=== PATIENT | male | born 1940 | race Caucasian/White ===

== ENCOUNTER 2016-08-09 10:17 | Inpatient (IN) | payer OTHER ==
--- NOTE | 2016-08-09 10:54 | PDOC ---
History of Present Illness - General History Source: Patient Exam Limitations: No Limitations - History of Present Illness Initial Comments: 08/09/16 11:04 The patient is a 75 year old male, with significant past medical history of HTN , HLD, CHF, myocardial infarction(1992), CVA (with right sided residual weakness ) IDDM, gastritis, epilepsy, anemia, who presents today complaining of left shoulder pain. The patient was in the emergency room yesterday, 08/08/16, for left shoulder pain s/p fall 5 days ago and was discharged with Tramadol. He returns to the emergency room today because the left shoulder pain is now radiating up the neck, to his left chest, and down to the fingers with associated tingling. He became SOB last night and took Ventolin. The patient had a stent placed on 07/19/16 and wanted to be sure everything was fine. Denies fever, nausea, sweats. Denies abdominal pain, urinary difficulty. Denies lightheadedness, dizziness, changes in vision. Allergies: None reported Surgical Hx: Cholecystectomy, stent placement (07/19/16). Orthopedic surgery on left hand. Social Hx: No tobacco use. No alcohol use. PCP- Dr. Srini Nichols <Gretchen Carver - Last Filed: 08/09/16 11:36> <Roxanne Grubbs - Last Filed: 08/10/16 10:55> - General Chief Complaint: Chronic pain Stated Complaint: SHOULDER AND CHEST PAIN Time Seen by Provider: 08/09/16 10:33 Past History <Gretchen Carver - Last Filed: 08/09/16 11:36> - Past Medical History Anemia: Yes Asthma: No Cancer: No Cardiac Disorders: Yes (mi 1992) 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)) COPD: No CHF: Yes Dementia: Yes Diabetes: Yes (IDDM) GI Disorders: Yes (Gastritis) Disorders: No HTN: Yes Hypercholesterolemia: Yes Liver Disease: No Suicide Attempt (Hx): No Seizures: Yes (epilepsy) Thyroid Disease: No - Surgical History Abdominal Surgery: Yes Appendectomy: No Cardiac Surgery: No Cholecystectomy: Yes Lung Surgery: No Neurologic Surgery: No Orthopedic Surgery: Yes (LEFT HAND) - Immunization History Immunization Up to Date: No - Psycho/Social/Smoking Cessation Hx Anxiety: No Suicidal Ideation: No Smoking History: Never smoked Have you smoked in the past 12 months: No Number of Cigarettes Smoked Daily: 0 Information on smoking cessation initiated: No Hx Alcohol Use: No Drug/Substance Use Hx: No Substance Use Type: None Hx Substance Use Treatment: No <RomieRoxanne - Last Filed: 08/10/16 10:55> - Past Medical History Allergies/Adverse Reactions: Allergies Allergy/AdvReac Type Severity Reaction Status Date / Time No Known Allergies Allergy Verified 08/09/16 10:33 Home Medications: Ambulatory Orders Atorvastatin Ca [Lipitor] 20 mg PO HS 05/20/16 Finasteride 5 mg PO DAILY 05/20/16 Nifedipine [Nifedipine Xl] 60 mg PO DAILY 05/20/16 Sitagliptin Phosphate [Januvia] 100 mg PO DAILY 05/20/16 Tamsulosin HCl 0.4 mg PO DAILY 05/20/16 Acetaminophen [Tylenol .Regular Strength -] 650 mg PO Q8H PRN #0 tablet Albuterol Sulfate Inhaler - [Ventolin Hfa Inhaler -] 1 - 2 inh PO Q4H #1 inhaler 05/27/16 Donepezil HCl [Aricept -] 5 mg PO HS #30 tablet 05/27/16 Levetiracetam [Keppra -] 1,000 mg PO BID tablet 05/27/16 Ergocalciferol (Vitamin D2) [Vitamin D2] 1.25 unit PO DAILY 06/27/16 Furosemide [Lasix -] 20 mg PO DAILY 06/27/16 Omeprazole/Sodium Bicarbonate [Omeprazole-Bicarb 40-1,100 Cap] 1 each PO DAILY 06/27/16 Alprazolam [Xanax] 0.5 mg PO DAILY 08/08/16 Carvedilol [Coreg] 12.5 mg PO BID 08/08/16 Cyanocobalamin (Vitamin B-12) [Nascobal] 1 each NS WEEKLY 08/08/16 Docusate Sodium [Colace -] 100 mg PO DAILY 08/08/16 Gabapentin [Neurontin -] 300 mg PO BID 08/08/16 Insulin Degludec [Tresiba Flextouch U-200] 42 unit SQ DAILY 08/08/16 Isosorbide Mononitrate [Isosorbide Mononitrate ER] 30 mg PO DAILY 01/09/17 Lisinopril [Zestril] 2.5 mg PO DAILY 08/08/16 Mirtazapine [Remeron -] 15 mg PO HS 08/08/16 Tramadol HCl 50 mg PO TID #21 tablet MDD 3 08/08/16 Warfarin Sodium [Coumadin] 5 mg PO HS 08/08/16 Review of Systems - Review of Systems Able to Perform ROS?: Yes Comments:: 08/09/16 11:04 GENERAL/CONSTITUTIONAL: No: fever, chills, weakness, loss of appetite. HEAD, EYES, EARS, NOSE AND THROAT: No: change in vision, ear pain, discharge, sore throat, throat swelling. CARDIOVASCULAR: No: chest pain, lightheadedness, palpitations, syncope RESPIRATORY: No: cough, shortness of breath, wheezing, hemoptysis, stridor. GASTROINTESTINAL: No: nausea, vomiting, abdominal cramping, diarrhea, rectal bleeding, constipation. GENITOURINARY: No: dysuria, hematuria, frequency, urgency, flank pain. MUSCULOSKELETAL: Yes: left shoulder pain radiating to neck and fingers. No: back pain, joint pain, muscle swelling or pain SKIN: No: lesions, pallor, rash or easy bruising. NEUROLOGIC: No: headache, vertigo, paresthesias, weakness ENDOCRINE: No: unexplained weight gain or loss HEMATOLOGIC/LYMPHATIC: No: anemia, easy bleeding, swelling nodesGENERAL/ CONSTITUTIONAL: No: fever, chills, weakness, loss of appetite. <Gretchen Carver - Last Filed: 08/09/16 11:36> *Physical Exam - Vital Signs Last Vital Signs Temp Pulse Resp BP Pulse Ox 97.5 F L 64 18 133/78 97 08/09/16 10:27 08/09/16 10:27 08/09/16 10:27 08/09/16 10:27 08/09/16 10:27 - Physical Exam Comments: 08/09/16 11:05 GENERAL: The patient is in no acute distress. HEAD: Normal with no signs of trauma. EYES: PERRLA, EOMI, sclera anicteric, conjunctiva clear. ENT: Ears normal, nares patent, oropharynx clear without exudates. Moist mucous membranes. NECK: Normal range of motion, supple without lymphadenopathy, JVD, or masses. LUNGS: Breath sounds equal, clear to auscultation bilaterally. No wheezes, and no crackles. HEART:Regular rate and rhythm, normal S1 and S2 without murmur, rub or gallop. ABDOMEN: Soft, nontender, normoactive bowel sounds. No guarding, no rebound. EXTREMITIES: +Tenderness to palpation of the superior shoulder. Limited ROM of the left arm secondary to pain. No edema. No clubbing or cyanosis. No erythema. NEUROLOGICAL: Cranial nerves II through XII grossly intact. Normal speech. No focal neurological deficits. MUSCULOSKELETAL: Back nontender to palpation, no CVA tenderness SKIN: Warm, Dry, normal turgor, no rashes or lesions noted. <Gretchen Carver - Last Filed: 08/09/16 11:36> - Vital Signs Last Vital Signs Temp Pulse Resp BP Pulse Ox 97.5 F L 64 18 133/78 97 08/09/16 10:27 08/09/16 10:27 08/09/16 10:27 08/09/16 10:27 08/09/16 10:27 <Roxanne Grubbs - Last Filed: 08/10/16 10:55> Heart Score/ECG Review - History History: Slightly suspicious - Electrocardiogram EKG: Non specific repolarization disturbance - Age Age: >/= 65 - Risk Factors Risk Factors Heart Score: Yes Hx Hypercholesterolemia, Yes Hx Hypertension, Yes Hx Diabetes, Yes Positive family hx of cardiac disease Based on the list above the patient has:: >/=3 risk factors or Hx atherosclerotic disease - Troponin Troponin: </= normal limit - Score Heart Score - Total: 5 #1 ECG reviewed & interpreted by me at: 11:26 08/09/16 11:26 Paced at 60 bpm <Roxanne Grubbs - Last Filed: 08/10/16 10:55> ED Treatment Course - LABORATORY CBC & Chemistry Diagram: 08/09/16 10:51 08/09/16 10:51 - RADIOLOGY Radiograph Interpretation: 08/09/16 11:36 EXAM#: TYPE/EXAM: RESULT: [id number] RAD/CHEST X-RAY PORTABLE* Chest pain. Chest semierect portable x-ray. Comparison study June 27, 2016. The heart is borderline enlarged. No evidence of widening of the superior mediastinum. Left pacemaker with single lead. No evidence of pneumonia, CHF, or large pleural effusion. No evidence of pulmonary infiltrates. Impression. No evidence of pulmonary infiltrates, CHF, or pneumothorax. Reported By: Willie King MD 08/09/16 1134 <Gretchen Carver - Last Filed: 08/09/16 11:36> - LABORATORY CBC & Chemistry Diagram: 08/10/16 05:35 08/10/16 05:35 <Roxanne Grubbs - Last Filed: 08/10/16 10:55> Medical Decision Making - Medical Decision Making 08/09/16 11:07 Dr. Higgins visited the patient's bedside upon arrival to the emergency room. <Gretchen Carver - Last Filed: 08/09/16 11:36> - Medical Decision Making A portion of this note was documented by scribe services under my direction. I have reviewed the details of the note, within reason, and agree with the documentation with the following case summary and management plan written by me. Nursing documentation reviewed and incorporated into medical decision making 75 yo M presenting to the ER with a complaint of left chest pain radiating to the neck Apparently, pt fell 4 days ago Complained of left shoulder pain Was seen in the ER yesterday Pt state pain has NOT improved despite Tramadol Pain is intermittent Worse with movement of the shoulder Associated with shortness of breath 08/09/16 12:48 Laboratory Tests 08/09/16 08/09/16 10:51 10:51 WBC 8.4 Hgb 9.6 L Hct 30.0 L Plt Count 174 Neutrophils % 79.2 Lymphocytes % 9.9 Sodium 143 Potassium 4.2 Chloride 105 Carbon Dioxide 31 BUN 21 H Creatinine 1.5 H Random Glucose 182 H Creatine Kinase 50 Troponin I 0.03 D PT seen in the ER by Dr Higgins Will admit to tele given cardiac risk factors, atypical chest pain and need for staged Cath and stent Case reviewed with Kristy Clinical impression: Chest pain <Roxanne Grubbs - Last Filed: 08/10/16 10:55> *DC/Admit/Observation/Transfer - Attestations Scribe Attestion: 08/09/16 11:05 Documentation prepared by BETH White, acting as medical records clerk for Roxanne Grubbs MD. <Gretchen Carver - Last Filed: 08/09/16 11:36> - Discharge Dispostion Admit: Yes <Roxanne Grubbs - Last Filed: 08/10/16 10:55> Diagnosis at time of Disposition: Atypical chest pain - Discharge Dispostion Condition at time of disposition: Stable
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
[2016-08-09 11:19] LABS: BASOPHIL 0.3 % (0-2.0); EOSINOPHIL 2.1 % (0-4.5); MCH 26.4 pg (25.7-33.7); MCHC 31.9 g/dl (32.0-35.9); MEAN CELL VOLUME 82.8 fl (80-96); MEAN PLT VOLUME 8.2 fl (7.5-11.1); NEUTROPHILS 79.2 % (42.8-82.8); PLATELET COUNT 174 K/MM3 (134-434); RDW 14.9 % (11.9-15.9); WHITE BLOOD COUNT 8.4 K/mm3 (4.0-10.0)
[2016-08-09 11:34] LABS: URINE APPEARANCE CLEAR; URINE BILIRUBIN NEGATIVE (NEGATIVE); URINE COLOR LT. YELLOW; URINE GLUCOSE (UA) NEGATIVE (NEGATIVE); URINE KETONE NEGATIVE (NEGATIVE); URINE LEUK ESTERASE NEGATIVE (NEGATIVE); URINE NITRITE NEGATIVE (NEGATIVE); URINE UROBILINOGEN 0.2 E.U/dl E.U./dl (0.2-1.0)
[2016-08-09] MEDS ORDERED: morphine CARPU-JECT 4 MG/1 ML DISP.SYRIN IVPUSH ONE (11:35)
[2016-08-09 11:37] LABS: URINE BLOOD 2+ (NEGATIVE); URINE PROTEIN 2+ (NEGATIVE)
[2016-08-09] MEDS ORDERED: morphine CARPU-JECT 2 MG/1 ML DISP.SYRIN ONE (11:39)
[2016-08-09 11:43] LABS: BILIRUBIN,TOTAL 0.4 mg/dL (0.2-1.0); CALCIUM 7.7 mg/dL (8.5-10.1); CREATININE 1.5 mg/dL (0.7-1.3); TOT PROT 6.7 g/dl (6.4-8.2)
[2016-08-09 11:46] LABS: TROPONIN I 0.03 ng/ml (0.00-0.05)
[2016-08-09 11:55] LABS: URINE BACTERIA RARE /hpf (NONE SEEN); URINE HYALINE CAST 1 /lpf; URINE MUCUS RARE; URINE RBC 14 /hpf (0-3); URINE WBC <1 /hpf (3-5)
[2016-08-09] MEDS ORDERED: ALBUTEROL SO4 2.5/IPRATROPIUM 0.5 INH SOL 3 ML VIAL.NEB. NEB PRN (16:28)
[2016-08-09] MEDS ORDERED: ALPRAZolam 0.25 MG TABLET PO PRN (16:28)
[2016-08-09] MEDS ORDERED: ACETAMINOPHEN 325 MG TABLET (FP) PO PRN (16:28)
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
[2016-08-09] MEDS: INSULIN SLIDING SCALE (NOVOLOG) 1 VIAL SQ SCH ×2 (17:46→21:47)
[2016-08-09] MEDS ORDERED: WARFARIN NA 5 MG TABLET (UD) PO SCH (18:00)
[2016-08-09 18:18] VITALS: BMI 24.5
--- NOTE | 2016-08-09 18:18 | EKG ---
Test Reason : Blood Pressure : / mmHG Vent. Rate : 060 BPM Atrial Rate : 071 BPM P-R Int : 000 ms QRS Dur : 174 ms QT Int : 516 ms P-R-T Axes : 000 -68 120 degrees QTc Int : 516 ms Ventricular-paced rhythm ABNORMAL ECG WHEN COMPARED WITH ECG OF 08-AUG-2016 11:28, NO SIGNIFICANT CHANGE WAS FOUND Confirmed by MURPHY ZELAYA MD ([id number]) on 08/09/2016 6:18:31 PM Referred By: Confirmed By:MURPHY ZELAYA MD
[2016-08-09] MEDS: levETIRAcetam 500 MG TABLET (FP) PO SCH (21:23)
[2016-08-09] MEDS: GABAPENTIN 300 MG CAPSULE (FP) PO SCH (21:23)
[2016-08-09] MEDS: MIRTAZAPINE 30 MG TABLET (FP) PO SCH (21:23)
[2016-08-09] MEDS: CARVEDILOL 12.5 MG TABLET (FP) PO SCH (21:23)
[2016-08-09] MEDS: traMADol HCL 50 MG TABLET PO PRN (21:24)
[2016-08-10] MEDS: traMADol HCL 50 MG TABLET PO PRN ×2 (06:30→21:36)
[2016-08-10] MEDS: sitaGLIPtin PHOSPHATE 100 MG TABLET (FP) PO SCH (06:30)
[2016-08-10] MEDS: GABAPENTIN 300 MG CAPSULE (FP) PO SCH ×3 (06:31→21:33)
[2016-08-10] MEDS: INSULIN SLIDING SCALE (NOVOLOG) 1 VIAL SQ SCH ×4 (06:32→21:37)
[2016-08-10 06:47] LABS: MCH 26.6 pg (25.7-33.7); MCHC 32.5 g/dl (32.0-35.9); MEAN CELL VOLUME 81.7 fl (80-96); MEAN PLT VOLUME 8.2 fl (7.5-11.1); PLATELET COUNT 185 K/MM3 (134-434); RDW 15.2 % (11.9-15.9); WHITE BLOOD COUNT 7.5 K/mm3 (4.0-10.0)
[2016-08-10 07:14] LABS: ALBUMIN 2.6 g/dl (3.4-5.0); CALCIUM 7.4 mg/dL (8.5-10.1)
[2016-08-10 07:17] LABS: BILIRUBIN,TOTAL 0.3 mg/dL (0.2-1.0); CREATININE 1.6 mg/dL (0.7-1.3); TOT PROT 6.1 g/dl (6.4-8.2)
[2016-08-10 07:28] LABS: CHOLESTEROL 98 mg/dL (50-200); LDL CHOLESTEROL (ONLY SJRH) 53 mg/dL (5-100)
[2016-08-10 07:33] LABS: INR 2.71 (0.82-1.09); PROTHROMBIN TIME (PATIENT) 30.4 SEC (9.98-11.88)
[2016-08-10] MEDS: TAMSULOSIN HCL 0.4 MG CAP.ER.24H (FP) PO SCH (08:55)
--- NOTE | 2016-08-10 09:08 | CONSULT ---
Consult - text type - Consultation Consultation Note: FULL CONSULT DICTATED IMP: INTERNAL DERANGEMENT LEFT SHOULDER PROBABLE ROTATOR CUFF TEAR AND AC JOINT SPRAIN PLAN: CAN BE DCed FROM AN ORTHO STANDPOINT IN A SLING WITH ANALGESICS. WE CAN ARRANGE OUTPATIENT MRI
--- NOTE | 2016-08-10 09:34 | CONS ---
DATE OF CONSULTATION: 08/10/2016 ORTHOPEDIC CONSULTATION HISTORY OF PRESENT ILLNESS: Patient is a 75-year-old male status post fall last week injuring his left shoulder. He initially came to the emergency room last week where they did x-rays which were negative and sent him home. Patient returns to the hospital complaining of pain to the shoulder and neck and surrounding region, and was thus admitted to the hospital for cardiac evaluation and other consultations. Orthopedic consultation was then obtained. PHYSICAL EXAMINATION: Patient has point tenderness over his AC joint. He also has positive drop-on sign with positive impingement sign. No swelling, ecchymosis, erythema, and full range of motion elbow, wrists, and fingers. He has a supple C-spine with cranial nerve examination 2-12 grossly intact. No strap muscle tenderness. IMAGING: X-rays reviewed are negative of the left shoulder. IMPRESSION: Internal derangement of the left shoulder, probable rotator cuff tear, questionable acromioclavicular sprain, as well. PLAN: Sling, nonsteroidals, analgesics. Patient can be discharged and we can arrange for an outpatient MRI and followup in my office. ROSSANA URIBE M.D. [id number]
[2016-08-10] MEDS: DONEPEZIL HCL 5 MG TABLET (FP) PO SCH (09:55)
[2016-08-10] MEDS: CARVEDILOL 12.5 MG TABLET (FP) PO SCH ×2 (09:55→21:33)
[2016-08-10] MEDS: DOCUSATE SODIUM 100 MG CAPSULE (FP) PO SCH (09:55)
[2016-08-10] MEDS: LISINOPRIL 5 MG TABLET (FP) PO SCH (09:56)
[2016-08-10] MEDS: ISOSORBIDE MONONITRATE 30 MG TAB.SR.24H (FP) PO SCH (09:56)
[2016-08-10] MEDS: levETIRAcetam 500 MG TABLET (FP) PO SCH ×2 (09:56→21:33)
[2016-08-10] MEDS: NIFEdipine E.R. 30 MG TABLET (FP) PO SCH (09:57)
[2016-08-10] MEDS: PANTOPRAZOLE 40 MG TABLET (FP) PO SCH (09:58)
[2016-08-10] MEDS: FINASTERIDE 5 MG TABLET (FP) PO SCH (09:58)
[2016-08-10] MEDS ORDERED: FUROSEMIDE 40 MG TABLET (FP) PO SCH (10:00)
--- NOTE | 2016-08-10 10:20 | PN ---
Progress Note, Physician Chief Complaint: HAD D/W PATIENT & FAMILY MEMBER - Current Medication List Current Medications: Active Medications Acetaminophen (Tylenol -) 650 mg PO Q6H PRN PRN Reason: FEVER OR PAIN Albuterol/Ipratropium (Duoneb -) 1 amp NEB Q6H PRN PRN Reason: SHORTNESS OF BREATH Alprazolam (Xanax -) 0.25 mg PO Q8H PRN PRN Reason: ANXIETY Last Admin: 08/09/16 21:23 Dose: 0.25 mg Atorvastatin Calcium (Lipitor -) 20 mg PO [facility] Carvedilol (Coreg -) 12.5 mg PO BID [facility] Last Admin: 08/10/16 09:55 Dose: 12.5 mg Docusate Sodium (Colace -) 100 mg PO DAILY [facility] Last Admin: 08/10/16 09:55 Dose: 100 mg Donepezil HCl (Aricept -) 5 mg PO DAILY [facility] Last Admin: 08/10/16 09:55 Dose: 5 mg Finasteride (Proscar -) 5 mg PO DAILY [facility] Last Admin: 08/10/16 09:58 Dose: 5 mg Gabapentin (Neurontin -) 300 mg PO TID [facility] Last Admin: 08/10/16 06:31 Dose: 300 mg Insulin Aspart (Novolog Vial Sliding Scale -) 1 vial SQ ACHS [facility] PRN Reason: Protocol Last Admin: 08/10/16 06:32 Dose: Not Given Isosorbide Mononitrate (Imdur -) 30 mg PO DAILY [facility] Last Admin: 08/10/16 09:56 Dose: 30 mg Levetiracetam (Keppra -) 1,000 mg PO BID [facility] Last Admin: 08/10/16 09:56 Dose: 1,000 mg Lisinopril (Prinivil) 2.5 mg PO DAILY [facility] Last Admin: 08/10/16 09:56 Dose: 2.5 mg Mirtazapine (Remeron -) 30 mg PO HS [facility] Last Admin: 08/09/16 21:23 Dose: 30 mg Nifedipine (Procardia Xl -) 30 mg PO DAILY [facility] Last Admin: 08/10/16 09:57 Dose: 30 mg Pantoprazole Sodium (Protonix -) 40 mg PO DAILY [facility] Last Admin: 08/10/16 09:58 Dose: 40 mg Sitagliptin Phosphate (Januvia -) 100 mg PO DAILY@0700 [facility] Last Admin: 08/10/16 06:30 Dose: 100 mg Tamsulosin HCl (Flomax -) 0.4 mg PO DAILY@0830 [facility] Last Admin: 08/10/16 08:55 Dose: 0.4 mg Tramadol HCl (Ultram -) 50 mg PO Q8H PRN PRN Reason: PAIN Last Admin: 08/10/16 06:30 Dose: 50 mg - Objective Vital Signs: Vital Signs Temperature 98.3 F 08/10/16 06:00 Pulse Rate 69 08/10/16 06:00 Respiratory Rate 18 08/10/16 06:00 Blood Pressure 132/63 08/10/16 06:00 O2 Sat by Pulse Oximetry (%) 94 L 08/09/16 21:00 Constitutional: Yes: Calm Cardiovascular: Yes: S1, S2 Respiratory: Yes: CTA Bilaterally Gastrointestinal: Yes: Normal Bowel Sounds, Soft Edema: No Labs: CBC, BMP 08/10/16 05:35 08/10/16 05:35 INR, PTT INR 2.71 (0.82-1.09) H 08/10/16 05:35 Problem List - Problems (1) Acute on chronic renal insufficiency Code(s): N28.9 - DISORDER OF KIDNEY AND URETER, UNSPECIFIED N18.9 - CHRONIC KIDNEY DISEASE, UNSPECIFIED (2) Atrial flutter Code(s): I48.92 - UNSPECIFIED ATRIAL FLUTTER Qualifiers: Atrial flutter type: unspecified Qualified Code(s): I48.92 - Unspecified atrial flutter (3) Atypical chest pain Code(s): R07.89 - OTHER CHEST PAIN (4) CHF (congestive heart failure) Code(s): I50.9 - HEART FAILURE, UNSPECIFIED Qualifiers: Congestive heart failure chronicity: acute on chronic (5) CKD (chronic kidney disease) Code(s): N18.9 - CHRONIC KIDNEY DISEASE, UNSPECIFIED (6) Diabetes mellitus Code(s): E11.9 - TYPE 2 DIABETES MELLITUS WITHOUT COMPLICATIONS Qualifiers: Diabetes mellitus type: type 1 Diabetes mellitus complication status: with hyperglycemia Qualified Code(s): E10.65 - Type 1 diabetes mellitus with hyperglycemia (7) Epilepsy Code(s): G40.909 - EPILEPSY, UNSP, NOT INTRACTABLE, WITHOUT STATUS EPILEPTICUS (8) HTN (hypertension) Code(s): I10 - ESSENTIAL (PRIMARY) HYPERTENSION Qualifiers: Hypertension type: essential hypertension Qualified Code(s): I10 - Essential (primary) hypertension (9) Shoulder pain, left Code(s): M25.512 - PAIN IN LEFT SHOULDER Qualifiers: Chronicity: acute Qualified Code(s): M25.512 - Pain in left shoulder (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 Code(s): E11.610 - TYPE 2 DIABETES MELLITUS W DIABETIC NEUROPATHIC ARTHROPATHY (11) Altered mental status Code(s): R41.82 - ALTERED MENTAL STATUS, UNSPECIFIED Assessment/Plan (1) Atrial flutter Code(s): I48.92 - UNSPECIFIED ATRIAL FLUTTER Qualifiers: Atrial flutter type: unspecified Qualified Code(s): I48.92 - Unspecified atrial flutter INR THERAPEUTIC ON WARFARIN -> WILL CONTINUE IF CTB NEG (2) Atypical chest pain Code(s): R07.89 - OTHER CHEST PAIN CARDIOLOGY EVAL APPRECIATED TELEMETRY EVAL PLANNED ANGIO (3) Chronic systolic CHF (congestive heart failure) Code(s): I50.22 - CHRONIC SYSTOLIC (CONGESTIVE) HEART FAILURE (4) Dementia Code(s): F03.90 - UNSPECIFIED DEMENTIA WITHOUT BEHAVIORAL DISTURBANCE Qualifiers: Dementia behavioral disturbance: without behavioral disturbance (5) Epilepsy Code(s): G40.909 - EPILEPSY, UNSP, NOT INTRACTABLE, WITHOUT STATUS EPILEPTICUS ON AED (6) Near syncope Code(s): R55 - SYNCOPE AND COLLAPSE SEE #1 (7) Pacemaker Code(s): Z95.0 - PRESENCE OF CARDIAC PACEMAKER (8) Stented coronary artery Code(s): Z95.5 - PRESENCE OF CORONARY ANGIOPLASTY IMPLANT AND GRAFT (9) ACS (acute coronary syndrome) Code(s): I24.9 - ACUTE ISCHEMIC HEART DISEASE, UNSPECIFIED SEE #1 TROP NEG x 1 -> F/U #2 (10) Acute on chronic renal failure Code(s): N17.9 - ACUTE KIDNEY FAILURE, UNSPECIFIED N18.9 - CHRONIC KIDNEY DISEASE, UNSPECIFIED (11) Acute on chronic renal insufficiency Code(s): N28.9 - DISORDER OF KIDNEY AND URETER, UNSPECIFIED N18.9 - CHRONIC KIDNEY DISEASE, UNSPECIFIED Cr 1.6 RENAL CONSULTED (12) Acute respiratory failure Code(s): J96.00 - ACUTE RESPIRATORY FAILURE, UNSP W HYPOXIA OR HYPERCAPNIA (13) Anemia Code(s): D64.9 - ANEMIA, UNSPECIFIED Qualifiers: Anemia type: unspecified type Qualified Code(s): D64.9 - Anemia, unspecified (14) CVA (cerebral infarction) Code(s): I63.9 - CEREBRAL INFARCTION, UNSPECIFIED Qualifiers: Cerebral infarction mechanism: unspecified mechanism Qualified Code( s): I63.9 - Cerebral infarction, unspecified (15) Diabetes mellitus Code(s): E11.9 - TYPE 2 DIABETES MELLITUS WITHOUT COMPLICATIONS Qualifiers: Diabetes mellitus type: type 1 Diabetes mellitus complication status: with hyperglycemia Qualified Code(s): E10.65 - Type 1 diabetes mellitus with hyperglycemia (16) HTN (hypertension) Code(s): I10 - ESSENTIAL (PRIMARY) HYPERTENSION Qualifiers: Hypertension type: essential hypertension Qualified Code(s): I10 - Essential (primary) hypertension (17) Seizure disorder Code(s): G40.909 - EPILEPSY, UNSP, NOT INTRACTABLE, WITHOUT STATUS EPILEPTICUS (18) Shoulder pain, left Code(s): M25.512 - PAIN IN LEFT SHOULDER Qualifiers: Chronicity: acute Qualified Code(s): M25.512 - Pain in left shoulder APPRECIATE ORTHO CONSULT F/U CT (19) Slurred speech Code(s): R47.81 - SLURRED SPEECH F/U NEURO CONSULT NEURO CHECKS AND NEUROLOGY EVAL FALL PRECAUTIONS SEIZURE PRECAUTIONS - CTB STAT (20) Type 2 diabetes mellitus with diabetic neuropathic arthropathy Code(s): E11.610 - TYPE 2 DIABETES MELLITUS W DIABETIC NEUROPATHIC ARTHROPATHY 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
--- NOTE | 2016-08-10 10:27 | EKG ---
Test Reason : Blood Pressure : / mmHG Vent. Rate : 085 BPM Atrial Rate : 085 BPM P-R Int : 160 ms QRS Dur : 136 ms QT Int : 424 ms P-R-T Axes : 063 -53 -33 degrees QTc Int : 504 ms SINUS RHYTHM WITH OCCASIONAL PREMATURE VENTRICULAR COMPLEXES LEFT AXIS DEVIATION RIGHT BUNDLE BRANCH BLOCK INFERIOR INFARCT , AGE UNDETERMINED ANTEROLATERAL INFARCT , AGE UNDETERMINED ABNORMAL ECG WHEN COMPARED WITH ECG OF 09-AUG-2016 11:05, SINUS RHYTHM HAS REPLACED ELECTRONIC VENTRICULAR PACEMAKER Confirmed by MADISYN ENGLAND MD ([id number]) on 08/10/2016 10:27:34 AM Referred By: Kenia ROSA Confirmed By:MADISYN ENGLAND MD
--- NOTE | 2016-08-10 10:35 | PN ---
Progress Note, Physician History of Present Illness: 75 yr old man ([place]. [place]) with PMHx CVA, CAD (s/p [place] 07/07/2016-->T[facility] LAD; further taged TIBURCIO planned within the next few weeks), significant systolic LV dysfunction (<30% LBEF on recent ECHO), AF; HTN DM, now admitted with left shoulder pain after a slip and fall on that arm (this occurred yesterday; an Xray in [facility] ER showed no fracture). When he complained to the family that moving his arm started to cause chest pain that felt the same as before the [place] 05/2016, he was brought back to the ER. - Current Medication List Current Medications: Active Medications Acetaminophen (Tylenol -) 650 mg PO Q6H PRN PRN Reason: FEVER OR PAIN Albuterol/Ipratropium (Duoneb -) 1 amp NEB Q6H PRN PRN Reason: SHORTNESS OF BREATH Alprazolam (Xanax -) 0.25 mg PO Q8H PRN PRN Reason: ANXIETY Last Admin: 08/09/16 21:23 Dose: 0.25 mg Atorvastatin Calcium (Lipitor -) 20 mg PO HS [facility] Carvedilol (Coreg -) 12.5 mg PO BID [facility] Last Admin: 08/10/16 09:55 Dose: 12.5 mg Docusate Sodium (Colace -) 100 mg PO DAILY [facility] Last Admin: 08/10/16 09:55 Dose: 100 mg Donepezil HCl (Aricept -) 5 mg PO DAILY [facility] Last Admin: 08/10/16 09:55 Dose: 5 mg Finasteride (Proscar -) 5 mg PO DAILY [facility] Last Admin: 08/10/16 09:58 Dose: 5 mg Gabapentin (Neurontin -) 300 mg PO TID [facility] Last Admin: 08/10/16 06:31 Dose: 300 mg Insulin Aspart (Novolog Vial Sliding Scale -) 1 vial SQ ACHS [facility] PRN Reason: Protocol Last Admin: 08/10/16 06:32 Dose: Not Given Isosorbide Mononitrate (Imdur -) 30 mg PO DAILY [facility] Last Admin: 08/10/16 09:56 Dose: 30 mg Levetiracetam (Keppra -) 1,000 mg PO BID [facility] Last Admin: 08/10/16 09:56 Dose: 1,000 mg Lisinopril (Prinivil) 2.5 mg PO DAILY [facility] Last Admin: 08/10/16 09:56 Dose: 2.5 mg Mirtazapine (Remeron -) 30 mg PO HS [facility] Last Admin: 08/09/16 21:23 Dose: 30 mg Nifedipine (Procardia Xl -) 30 mg PO DAILY [facility] Last Admin: 08/10/16 09:57 Dose: 30 mg Pantoprazole Sodium (Protonix -) 40 mg PO DAILY [facility] Last Admin: 08/10/16 09:58 Dose: 40 mg Sitagliptin Phosphate (Januvia -) 100 mg PO DAILY@0700 [facility] Last Admin: 08/10/16 06:30 Dose: 100 mg Tamsulosin HCl (Flomax -) 0.4 mg PO DAILY@0830 [facility] Last Admin: 08/10/16 08:55 Dose: 0.4 mg Tramadol HCl (Ultram -) 50 mg PO Q8H PRN PRN Reason: PAIN Last Admin: 08/10/16 06:30 Dose: 50 mg - Objective Vital Signs: Vital Signs Temperature 98.3 F 08/10/16 06:00 Pulse Rate 69 08/10/16 06:00 Respiratory Rate 18 08/10/16 06:00 Blood Pressure 132/63 08/10/16 06:00 O2 Sat by Pulse Oximetry (%) 94 L 08/09/16 21:00 Eyes: Yes: WNL, Conjunctiva Clear, EOM Intact HENT: Yes: WNL, Atraumatic, Normocephalic Neck: Yes: WNL, Supple, Trachea Midline Cardiovascular: Yes: WNL, Regular Rate and Rhythm Respiratory: Yes: WNL, Regular, CTA Bilaterally Gastrointestinal: Yes: WNL, Normal Bowel Sounds Genitourinary: Yes: WNL Musculoskeletal: Yes: WNL Extremities: Yes: WNL Edema: No Integumentary: Yes: WNL Neurological: Yes: WNL, Alert, Oriented ...Motor Strength: WNL Psychiatric: Yes: WNL Labs: CBC, BMP 08/10/16 05:35 08/10/16 05:35 INR, PTT INR 2.71 (0.82-1.09) H 08/10/16 05:35 Assessment/Plan - Problems (1) Atrial flutter Assessment/Plan: on metoprolol for HR control. F/u INR. Warfarin held in anticipation of coronary angiogram. Code(s): I48.92 - UNSPECIFIED ATRIAL FLUTTER Qualifiers: Atrial flutter type: unspecified Qualified Code(s): I48.92 - Unspecified atrial flutter (2) HLD (hyperlipidemia) Assessment/Plan: Statin. F/u lipid profile. Code(s): E78.5 - HYPERLIPIDEMIA, UNSPECIFIED (3) HTN (hypertension) Assessment/Plan: On carvedilol, lisinopril, nifedipine, Imdur. Hold furosemide (not in acute CHF; BP controlled). If BUN/Cr and electrolytes allow, start spironolactone (severely reduced LVEF). Code(s): I10 - ESSENTIAL (PRIMARY) HYPERTENSION Qualifiers: Hypertension type: essential hypertension Qualified Code(s): I10 - Essential (primary) hypertension (4) NSTEMI (non-ST elevated myocardial infarction) Assessment/Plan: 07/07/2016 [place]-->LAD stent at [facility]. Now with atypical chest pain elicited by left arm movement. F/u TNI, EKG. will transfer to [facility] in AM for planned staged coronary stent. 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 If LVEF does not improve with optimal doses of the above and present/future PCIs , will need ICD. Code(s): I50.22 - CHRONIC SYSTOLIC (CONGESTIVE) HEART FAILURE
--- NOTE | 2016-08-10 11:10 | CONSULT ---
Consult - text type - Consultation Consultation Note: NEUROLOGY History of Present Illness The patient is a 75 year old male, with significant past medical history of HTN , HLD, CHF, myocardial infarction(1992), CVA (with right sided residual weakness ) IDDM, gastritis, epilepsy, anemia, who presents today complaining of left shoulder pain. The patient was in the emergency room on 08/08/16, for left shoulder pain s/p fall 5 days ago and was discharged with Tramadol. He returned to the emergency room yesterday because of left shoulder pain is now radiating up the neck, to his left chest, and down to the fingers with associated tingling. He was seen by Dr. Moran of Orthopedics and further evaluation of possible rotator cuff injury. Neurologically, symptoms may be associated with a cervical radiculopathy. - General Chief Complaint: Chronic pain Stated Complaint: SHOULDER AND CHEST PAIN Time Seen by Provider: 08/09/16 10:33 Past History Anemia: Yes Asthma: No Cancer: No Cardiac Disorders: Yes (mi 1992) 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)) COPD: No CHF: Yes Dementia: Yes Diabetes: Yes (IDDM) GI Disorders: Yes (Gastritis) Disorders: No HTN: Yes Hypercholesterolemia: Yes Liver Disease: No Suicide Attempt (Hx): No Seizures: Yes (epilepsy) Thyroid Disease: No - Surgical History Abdominal Surgery: Yes Appendectomy: No Cardiac Surgery: No Cholecystectomy: Yes Lung Surgery: No Neurologic Surgery: No Orthopedic Surgery: Yes (LEFT HAND) - Immunization History Immunization Up to Date: No - Psycho/Social/Smoking Cessation Hx Anxiety: No Suicidal Ideation: No Smoking History: Never smoked Have you smoked in the past 12 months: No Number of Cigarettes Smoked Daily: 0 Information on smoking cessation initiated: No Hx Alcohol Use: No Drug/Substance Use Hx: No Substance Use Type: None Hx Substance Use Treatment: No - Past Medical History Allergies/Adverse Reactions: Allergies Allergy/AdvReac Type Severity Reaction Status Date / Time No Known Allergies Allergy Verified 08/09/16 10:33 Home Medications: Ambulatory Orders Atorvastatin Ca [Lipitor] 20 mg PO HS 05/20/16 Finasteride 5 mg PO DAILY 05/20/16 Nifedipine [Nifedipine Xl] 60 mg PO DAILY 05/20/16 Sitagliptin Phosphate [Januvia] 100 mg PO DAILY 05/20/16 Tamsulosin HCl 0.4 mg PO DAILY 05/20/16 Acetaminophen [Tylenol .Regular Strength -] 650 mg PO Q8H PRN #0 tablet Albuterol Sulfate Inhaler - [Ventolin Hfa Inhaler -] 1 - 2 inh PO Q4H #1 inhaler 05/27/16 Donepezil HCl [Aricept -] 5 mg PO HS #30 tablet 05/27/16 Levetiracetam [Keppra -] 1,000 mg PO BID tablet 05/27/16 Ergocalciferol (Vitamin D2) [Vitamin D2] 1.25 unit PO DAILY 06/27/16 Furosemide [Lasix -] 20 mg PO DAILY 06/27/16 Omeprazole/Sodium Bicarbonate [Omeprazole-Bicarb 40-1,100 Cap] 1 each PO DAILY 06/27/16 Alprazolam [Xanax] 0.5 mg PO DAILY 08/08/16 Carvedilol [Coreg] 12.5 mg PO BID 08/08/16 Cyanocobalamin (Vitamin B-12) [Nascobal] 1 each NS WEEKLY 08/08/16 Docusate Sodium [Colace -] 100 mg PO DAILY 08/08/16 Gabapentin [Neurontin -] 300 mg PO BID 08/08/16 Insulin Degludec [Tresiba Flextouch U-200] 42 unit SQ DAILY 08/08/16 Isosorbide Mononitrate [Isosorbide Mononitrate ER] 30 mg PO DAILY 08/08/16 Lisinopril [Zestril] 2.5 mg PO DAILY 08/08/16 Mirtazapine [Remeron -] 15 mg PO HS 08/08/16 Tramadol HCl 50 mg PO TID #21 tablet MDD 3 08/08/16 Warfarin Sodium [Coumadin] 5 mg PO HS 08/08/16 Review of Systems No: fever, chills, weakness, loss of appetite. HEAD, EYES, EARS, NOSE AND THROAT: No: change in vision, ear pain, discharge, sore throat, throat swelling. CARDIOVASCULAR: No: chest pain, lightheadedness, palpitations, syncope RESPIRATORY: No: cough, shortness of breath, wheezing, hemoptysis, stridor. GASTROINTESTINAL: No: nausea, vomiting, abdominal cramping, diarrhea, rectal bleeding, constipation. GENITOURINARY: No: dysuria, hematuria, frequency, urgency, flank pain. MUSCULOSKELETAL: Yes: left shoulder pain radiating to neck and fingers. No: back pain, joint pain, muscle swelling or pain SKIN: No: lesions, pallor, rash or easy bruising. NEUROLOGIC: No: headache, vertigo, paresthesias, weakness ENDOCRINE: No: unexplained weight gain or loss HEMATOLOGIC/LYMPHATIC: No: anemia, easy bleeding, swelling nodesGENERAL/ CONSTITUTIONAL: No: fever, chills, weakness, loss of appetite. *Physical Exam Vital Signs Temperature 98.3 F 08/10/16 06:00 Pulse Rate 69 08/10/16 06:00 Respiratory Rate 18 08/10/16 06:00 Blood Pressure 132/63 08/10/16 06:00 O2 Sat by Pulse Oximetry (%) 94 L 08/09/16 21:00 GENERAL: The patient is in no acute distress. HEAD: Normal with no signs of trauma. EYES: PERRLA, EOMI, sclera anicteric, conjunctiva clear. ENT: Ears normal, nares patent, oropharynx clear without exudates. Moist mucous membranes. NECK: Normal range of motion, supple without lymphadenopathy, JVD, or masses. LUNGS: Breath sounds equal, clear to auscultation bilaterally. No wheezes, and no crackles. HEART:Regular rate and rhythm, normal S1 and S2 without murmur, rub or gallop. ABDOMEN: Soft, nontender, normoactive bowel sounds. No guarding, no rebound. EXTREMITIES: +Tenderness to palpation of the superior shoulder. Limited ROM of the left arm secondary to pain. No edema. No clubbing or cyanosis. No erythema. NEUROLOGICAL: Cranial nerves II through XII grossly intact. Normal speech. No focal neurological deficits. MUSCULOSKELETAL: Back nontender to palpation, no CVA tenderness SKIN: Warm, Dry, normal turgor, no rashes or lesions noted. CBCD WBC 7.5 K/mm3 (4.0-10.0) 08/10/16 05:35 RBC 3.55 M/mm3 (4.00-5.60) L 08/10/16 05:35 Hgb 9.4 GM/dL (11.7-16.9) L 08/10/16 05:35 Hct 29.0 % (35.4-49) L 08/10/16 05:35 MCV 81.7 fl (80-96) 08/10/16 05:35 MCHC 32.5 g/dl (32.0-35.9) 08/10/16 05:35 RDW 15.2 % (11.9-15.9) 08/10/16 05:35 Plt Count 185 K/MM3 (134-434) 08/10/16 05:35 MPV 8.2 fl (7.5-11.1) 08/10/16 05:35 CMP Sodium 142 mmol/L (136-145) 08/10/16 05:35 Potassium 4.2 mmol/L (3.5-5.1) 08/10/16 05:35 Chloride 107 mmol/L (98-107) 08/10/16 05:35 Carbon Dioxide 29 mmol/L (21-32) 08/10/16 05:35 Anion Gap 6 (8-16) L 08/10/16 05:35 BUN 22 mg/dL (7-18) H 08/10/16 05:35 Creatinine 1.6 mg/dL (0.7-1.3) H 08/10/16 05:35 Creat Clearance w eGFR 42.58 (>60) 08/10/16 05:35 Calcium 7.4 mg/dL (8.5-10.1) L 08/10/16 05:35 Total Bilirubin 0.3 mg/dL (0.2-1.0) D 08/10/16 05:35 AST 20 U/L (15-37) D 08/10/16 05:35 ALT 24 U/L (12-78) 08/10/16 05:35 Alkaline Phosphatase 138 U/L (45-117) H 08/10/16 05:35 Total Protein 6.1 g/dl (6.4-8.2) L 08/10/16 05:35 Albumin 2.6 g/dl (3.4-5.0) L 08/10/16 05:35 RAD/CHEST X-RAY PORTABLE* Chest pain. Chest semierect portable x-ray. Comparison study June 27, 2016. The heart is borderline enlarged. No evidence of widening of the superior mediastinum. Left pacemaker with single lead. No evidence of pneumonia, CHF, or large pleural effusion. No evidence of pulmonary infiltrates. Impression. No evidence of pulmonary infiltrates, CHF, or pneumothorax. Plan: 75 year old male, with significant past medical history of HTN, HLD, CHF, myocardial infarction(1992), CVA (with right sided residual weakness) IDDM, gastritis, epilepsy, anemia, who presents today complaining of left shoulder pain. The patient was in the emergency room on 08/08/16, for left shoulder pain s/ p fall 5 days ago and was discharged with Tramadol. He returned to the emergency room yesterday because of left shoulder pain is now radiating up the neck, to his left chest, and down to the fingers with associated tingling. He was seen by Dr. Moran of Orthopedics and further evaluation of possible rotator cuff injury. Neurologically, symptoms may be associated with a cervical radiculopathy. Will defer to ortho on their evaluation. Depending on results, may pursue MRI C spine but this can be done as outpatient. PT/OT as tolerated. Pain management. CT head ordered for recent fall.
[2016-08-10 11:20] LABS: TROPONIN I 0.02 ng/ml (0.00-0.05)
[2016-08-10] MEDS ORDERED: INSULIN (NOVOLOG) ASPART 100 UNITS/ML 10ML VIAL ONE (12:33)
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
[2016-08-10] MEDS: ATORVASTATIN CA 20 MG TABLET (FP) PO SCH (21:33)
[2016-08-10] MEDS: MIRTAZAPINE 30 MG TABLET (FP) PO SCH (21:34)
[2016-08-11] MEDS: GABAPENTIN 300 MG CAPSULE (FP) PO SCH ×3 (05:26→21:47)
[2016-08-11] MEDS: sitaGLIPtin PHOSPHATE 100 MG TABLET (FP) PO SCH (06:36)
[2016-08-11] MEDS: INSULIN SLIDING SCALE (NOVOLOG) 1 VIAL SQ SCH ×4 (06:37→21:48)
[2016-08-11 06:44] LABS: BASOPHIL 0.3 % (0-2.0); EOSINOPHIL 2.2 % (0-4.5); MCH 26.4 pg (25.7-33.7); MCHC 32.2 g/dl (32.0-35.9); MEAN PLT VOLUME 8.3 fl (7.5-11.1); NEUTROPHILS 76.3 % (42.8-82.8); PLATELET COUNT 201 K/MM3 (134-434); RDW 15.1 % (11.9-15.9); WHITE BLOOD COUNT 8.1 K/mm3 (4.0-10.0)
[2016-08-11 08:59] LABS: ALBUMIN 2.5 g/dl (3.4-5.0); BILIRUBIN,TOTAL 0.4 mg/dL (0.2-1.0); CALCIUM 7.3 mg/dL (8.5-10.1); CREATININE 1.8 mg/dL (0.7-1.3); TOT PROT 5.8 g/dl (6.4-8.2); TROPONIN I 0.03 ng/ml (0.00-0.05)
--- NOTE | 2016-08-11 09:03 | PN ---
Progress Note (short form) - Note Progress Note: Pt seen, Left shoulder feels better, has internal derangement. NTD orthopedically at this time. Will see PRN as an out pt
[2016-08-11] MEDS: DONEPEZIL HCL 5 MG TABLET (FP) PO SCH (09:39)
[2016-08-11] MEDS: DOCUSATE SODIUM 100 MG CAPSULE (FP) PO SCH (09:39)
[2016-08-11] MEDS: levETIRAcetam 500 MG TABLET (FP) PO SCH ×2 (09:39→21:47)
[2016-08-11] MEDS: NIFEdipine E.R. 30 MG TABLET (FP) PO SCH (09:39)
[2016-08-11] MEDS: CARVEDILOL 12.5 MG TABLET (FP) PO SCH ×2 (09:40→21:47)
[2016-08-11] MEDS: FINASTERIDE 5 MG TABLET (FP) PO SCH (09:40)
[2016-08-11] MEDS: PANTOPRAZOLE 40 MG TABLET (FP) PO SCH (09:40)
[2016-08-11] MEDS: TAMSULOSIN HCL 0.4 MG CAP.ER.24H (FP) PO SCH (09:40)
[2016-08-11] MEDS: LISINOPRIL 5 MG TABLET (FP) PO SCH (09:40)
[2016-08-11] MEDS: ISOSORBIDE MONONITRATE 30 MG TAB.SR.24H (FP) PO SCH (09:40)
--- NOTE | 2016-08-11 10:25 | PN ---
Progress Note (short form) - Note Progress Note: NEUROLOGY History of Present Illness The patient is a 75 year old male, with significant past medical history of HTN , HLD, CHF, myocardial infarction(1992), CVA (with right sided residual weakness ) IDDM, gastritis, epilepsy, anemia, who presents today complaining of left shoulder pain. The patient was in the emergency room on 08/08/16, for left shoulder pain s/p fall 7 days ago and was discharged with Tramadol. He returned to the emergency room because of left shoulder pain is now radiating up the neck , to his left chest, and down to the fingers with associated tingling. He was seen by Orthopedics and further evaluation of possible rotator cuff injury. Neurologically, symptoms may be associated with a cervical radiculopathy. Ct head completed and reviewed and no acute changes noted. Active Medications Acetaminophen (Tylenol -) 650 mg PO Q6H PRN PRN Reason: FEVER OR PAIN Albuterol/Ipratropium (Duoneb -) 1 amp NEB Q6H PRN PRN Reason: SHORTNESS OF BREATH Alprazolam (Xanax -) 0.25 mg PO Q8H PRN PRN Reason: ANXIETY Last Admin: 08/09/16 21:23 Dose: 0.25 mg Atorvastatin Calcium (Lipitor -) 20 mg PO HS [facility] Last Admin: 08/10/16 21:33 Dose: 20 mg Carvedilol (Coreg -) 12.5 mg PO BID [facility] Last Admin: 08/11/16 09:40 Dose: 12.5 mg Docusate Sodium (Colace -) 100 mg PO DAILY [facility] Last Admin: 08/11/16 09:39 Dose: 100 mg Donepezil HCl (Aricept -) 5 mg PO DAILY [facility] Last Admin: 08/11/16 09:39 Dose: 5 mg Finasteride (Proscar -) 5 mg PO DAILY [facility] Last Admin: 08/11/16 09:40 Dose: 5 mg Gabapentin (Neurontin -) 300 mg PO TID [facility] Last Admin: 08/11/16 05:26 Dose: 300 mg Insulin Aspart (Novolog Vial Sliding Scale -) 1 vial SQ ACHS [facility] PRN Reason: Protocol Last Admin: 08/11/16 06:37 Dose: Not Given Isosorbide Mononitrate (Imdur -) 30 mg PO DAILY [facility] Last Admin: 08/11/16 09:40 Dose: 30 mg Levetiracetam (Keppra -) 1,000 mg PO BID [facility] Last Admin: 08/11/16 09:39 Dose: 1,000 mg Lisinopril (Prinivil) 2.5 mg PO DAILY [facility] Last Admin: 08/11/16 09:40 Dose: 2.5 mg Mirtazapine (Remeron -) 30 mg PO HS [facility] Last Admin: 08/10/16 21:34 Dose: 30 mg Nifedipine (Procardia Xl -) 30 mg PO DAILY [facility] Last Admin: 08/11/16 09:39 Dose: 30 mg Pantoprazole Sodium (Protonix -) 40 mg PO DAILY [facility] Last Admin: 08/11/16 09:40 Dose: 40 mg Sitagliptin Phosphate (Januvia -) 100 mg PO DAILY@0700 [facility] Last Admin: 08/11/16 06:36 Dose: 100 mg Tamsulosin HCl (Flomax -) 0.4 mg PO DAILY@0830 [facility] Last Admin: 08/11/16 09:40 Dose: 0.4 mg Tramadol HCl (Ultram -) 50 mg PO Q8H PRN PRN Reason: PAIN Last Admin: 08/10/16 21:36 Dose: 50 mg *Physical Exam Vital Signs Temperature 98.6 F 08/11/16 06:35 Pulse Rate 64 08/11/16 06:35 Respiratory Rate 18 08/11/16 06:35 Blood Pressure 133/74 08/11/16 06:35 O2 Sat by Pulse Oximetry (%) 92 L 08/10/16 21:00 GENERAL: The patient is in no acute distress. HEAD: Normal with no signs of trauma. EYES: PERRLA, EOMI, sclera anicteric, conjunctiva clear. ENT: Ears normal, nares patent, oropharynx clear without exudates. Moist mucous membranes. NECK: Normal range of motion, supple without lymphadenopathy, JVD, or masses. LUNGS: Breath sounds equal, clear to auscultation bilaterally. No wheezes, and no crackles. HEART:Regular rate and rhythm, normal S1 and S2 without murmur, rub or gallop. ABDOMEN: Soft, nontender, normoactive bowel sounds. No guarding, no rebound. EXTREMITIES: +Tenderness to palpation of the superior shoulder. Limited ROM of the left arm secondary to pain. No edema. No clubbing or cyanosis. No erythema. NEUROLOGICAL: Cranial nerves II through XII grossly intact. Normal speech. No focal neurological deficits. MUSCULOSKELETAL: Back nontender to palpation, no CVA tenderness SKIN: Warm, Dry, normal turgor, no rashes or lesions noted. CBC, BMP 08/11/16 05:35 08/11/16 05:35 RAD/CHEST X-RAY PORTABLE* Chest pain. Chest semierect portable x-ray. Comparison study June 27, 2016. The heart is borderline enlarged. No evidence of widening of the superior mediastinum. Left pacemaker with single lead. No evidence of pneumonia, CHF, or large pleural effusion. No evidence of pulmonary infiltrates. Impression. No evidence of pulmonary infiltrates, CHF, or pneumothorax. CT head reviewed with no acute changes Plan: 75 year old male, with significant past medical history of HTN, HLD, CHF, myocardial infarction(1992), CVA (with right sided residual weakness) IDDM, gastritis, epilepsy, anemia, who presents today complaining of left shoulder pain. The patient was in the emergency room on 08/08/16, for left shoulder pain s/ p fall 7 days ago and was discharged with Tramadol. He returned to the emergency room because of left shoulder pain is now radiating up the neck, to his left chest, and down to the fingers with associated tingling. He was seen by Orthopedics and further evaluation of possible rotator cuff injury. Neurologically, symptoms may be associated with a cervical radiculopathy. Ct head completed and reviewed and no acute changes noted.
--- NOTE | 2016-08-11 10:31 | DS ---
Physical Examination Vital Signs: Vital Signs Temperature 98.6 F 08/11/16 06:35 Pulse Rate 64 08/11/16 06:35 Respiratory Rate 18 08/11/16 06:35 Blood Pressure 133/74 08/11/16 06:35 O2 Sat by Pulse Oximetry (%) 92 L 08/10/16 21:00 Constitutional: Yes: No Distress Eyes: Yes: WNL HENT: Yes: WNL Neck: Yes: WNL Cardiovascular: Yes: WNL Respiratory: Yes: WNL Gastrointestinal: Yes: WNL Musculoskeletal: Yes: Joint Stiffness, Joint Swelling, Muscle Pain, Muscle Weakness Extremities: Yes: WNL Edema: No Peripheral Pulses WNL: Yes Integumentary: Yes: WNL Wound/Incision: Yes: Clean/Dry Neurological: Yes: Pre-Existing Deficit ...Motor Strength: LLE, RLE Psychiatric: Yes: Other Labs: CBC, BMP 08/11/16 05:35 08/11/16 05:35 Discharge Summary Reason For Visit: ATYPICAL CHEST PAIN Current Active Problems Abdominal pain (Acute) Altered mental status (Acute) Atrial flutter (Acute) Atypical chest pain (Acute) Chronic systolic CHF (congestive heart failure) (Acute) Delirium (Acute) Dementia (Acute) Epilepsy (Acute) Hypokalemia (Acute) Near syncope (Acute) Pacemaker (Acute) Stented coronary artery (Acute) Procedures: Principal: CT SCANS Other Procedures: CARDIAC EVAL Hospital Course: ADMITTED CARDIAC EVAL, MONITORED AND WORKED UP FOR CHEST PAIN. TRANSFERRING TO [facility] FOR CARDIAC CATH Condition: Stable - Instructions Diet, Activity, Other Instructions: LOW SODIIUM,ADA Referrals: Srini Nichols [Primary Care Provider] - Disposition: TRANSFER ACUTE CARE/OTHER HOSP - Home Medications Comprehensive Discharge Medication List: Ambulatory Orders Atorvastatin Ca [Lipitor] 20 mg PO HS 05/20/16 Finasteride 5 mg PO DAILY 05/20/16 Nifedipine [Nifedipine Xl] 60 mg PO DAILY 05/20/16 Sitagliptin Phosphate [Januvia] 100 mg PO DAILY 05/20/16 Tamsulosin HCl 0.4 mg PO DAILY 05/20/16 Acetaminophen [Tylenol .Regular Strength -] 650 mg PO Q8H PRN #0 tablet Albuterol Sulfate Inhaler - [Ventolin Hfa Inhaler -] 1 - 2 inh PO Q4H #1 inhaler 05/27/16 Donepezil HCl [Aricept -] 5 mg PO HS #30 tablet 05/27/16 Levetiracetam [Keppra -] 1,000 mg PO BID tablet 05/27/16 Ergocalciferol (Vitamin D2) [Vitamin D2] 1.25 unit PO DAILY 06/27/16 Furosemide [Lasix -] 20 mg PO DAILY 06/27/16 Omeprazole/Sodium Bicarbonate [Omeprazole-Bicarb 40-1,100 Cap] 1 each PO DAILY 06/27/16 Alprazolam [Xanax] 0.5 mg PO DAILY 08/08/16 Carvedilol [Coreg] 12.5 mg PO BID 08/08/16 Cyanocobalamin (Vitamin B-12) [Nascobal] 1 each NS WEEKLY 08/08/16 Docusate Sodium [Colace -] 100 mg PO DAILY 08/08/16 Gabapentin [Neurontin -] 300 mg PO BID 08/08/16 Insulin Degludec [Tresiba Flextouch U-200] 42 unit SQ DAILY 08/08/16 Isosorbide Mononitrate [Isosorbide Mononitrate ER] 30 mg PO DAILY 08/08/16 Lisinopril [Zestril] 2.5 mg PO DAILY 08/08/16 Mirtazapine [Remeron -] 15 mg PO HS 08/08/16 Tramadol HCl 50 mg PO TID #21 tablet MDD 3 08/08/16 Warfarin Sodium [Coumadin] 5 mg PO HS 08/08/16
--- NOTE | 2016-08-11 10:56 | PN ---
Progress Note, Physician Chief Complaint: Pt alert; asymptomatic. History of Present Illness: 75 yr old man (b. [place]) with PMHx CVA, CAD (s/p [place] 07/07/2016-->TIBURCIO LAD; further taged TIBURCIO planned within the next few weeks), significant systolic LV dysfunction (<30% LBEF on recent ECHO), AF; HTN DM, now admitted with left shoulder pain after a slip and fall on that arm (this occurred yesterday; an Xray in [facility] ER showed no fracture). When he complained to the family that moving his arm started to cause chest pain that felt the same as before the UT 05/2016, he was brought back to the ER. - Current Medication List Current Medications: Active Medications Acetaminophen (Tylenol -) 650 mg PO Q6H PRN PRN Reason: FEVER OR PAIN Albuterol/Ipratropium (Duoneb -) 1 amp NEB Q6H PRN PRN Reason: SHORTNESS OF BREATH Alprazolam (Xanax -) 0.25 mg PO Q8H PRN PRN Reason: ANXIETY Last Admin: 08/09/16 21:23 Dose: 0.25 mg Atorvastatin Calcium (Lipitor -) 20 mg PO HS [facility] Last Admin: 08/10/16 21:33 Dose: 20 mg Carvedilol (Coreg -) 12.5 mg PO BID [facility] Last Admin: 08/11/16 09:40 Dose: 12.5 mg Docusate Sodium (Colace -) 100 mg PO DAILY [facility] Last Admin: 08/11/16 09:39 Dose: 100 mg Donepezil HCl (Aricept -) 5 mg PO DAILY [facility] Last Admin: 08/11/16 09:39 Dose: 5 mg Finasteride (Proscar -) 5 mg PO DAILY [facility] Last Admin: 08/11/16 09:40 Dose: 5 mg Gabapentin (Neurontin -) 300 mg PO TID [facility] Last Admin: 08/11/16 05:26 Dose: 300 mg Insulin Aspart (Novolog Vial Sliding Scale -) 1 vial SQ ACHS [facility] PRN Reason: Protocol Last Admin: 08/11/16 06:37 Dose: Not Given Isosorbide Mononitrate (Imdur -) 30 mg PO DAILY [facility] Last Admin: 08/11/16 09:40 Dose: 30 mg Levetiracetam (Keppra -) 1,000 mg PO BID [facility] Last Admin: 08/11/16 09:39 Dose: 1,000 mg Lisinopril (Prinivil) 2.5 mg PO DAILY [facility] Last Admin: 08/11/16 09:40 Dose: 2.5 mg Mirtazapine (Remeron -) 30 mg PO HS [facility] Last Admin: 08/10/16 21:34 Dose: 30 mg Nifedipine (Procardia Xl -) 30 mg PO DAILY [facility] Last Admin: 08/11/16 09:39 Dose: 30 mg Pantoprazole Sodium (Protonix -) 40 mg PO DAILY [facility] Last Admin: 08/11/16 09:40 Dose: 40 mg Sitagliptin Phosphate (Januvia -) 100 mg PO DAILY@0700 [facility] Last Admin: 08/11/16 06:36 Dose: 100 mg Tamsulosin HCl (Flomax -) 0.4 mg PO DAILY@0830 [facility] Last Admin: 08/11/16 09:40 Dose: 0.4 mg Tramadol HCl (Ultram -) 50 mg PO Q8H PRN PRN Reason: PAIN Last Admin: 08/10/16 21:36 Dose: 50 mg - Objective Vital Signs: Vital Signs Temperature 98.6 F 08/11/16 06:35 Pulse Rate 64 08/11/16 06:35 Respiratory Rate 18 08/11/16 06:35 Blood Pressure 133/74 08/11/16 06:35 O2 Sat by Pulse Oximetry (%) 92 L 08/10/16 21:00 Constitutional: Yes: Calm Eyes: Yes: WNL HENT: Yes: WNL Neck: Yes: WNL Cardiovascular: Yes: S1, S2 (split) Respiratory: Yes: Regular Gastrointestinal: Yes: Soft ...Rectal Exam: Yes: Deferred Genitourinary: No: Anuria Breast(s): Yes: WNL Musculoskeletal: Yes: Muscle Weakness Extremities: Yes: Cool Edema: No Peripheral Pulses WNL: No Peripheral Pulses: Left Doralis Pedis: 1+, Right Dorsalis Pedis: 1+ Integumentary: Yes: WNL Neurological: Yes: Alert, Weakness Psychiatric: Yes: Alert Labs: CBC, BMP 08/11/16 05:35 08/11/16 05:35 INR, PTT INR 2.71 (0.82-1.09) H 08/10/16 05:35 Abnormal Lab Results 08/11/16 08/11/16 08/11/16 05:35 05:35 11:19 RBC 3.46 L Hgb 9.1 L Hct 28.4 L INR 1.98 H Anion Gap 7 L BUN 25 H Creatinine 1.8 H Random Glucose 176 H D Calcium 7.3 L AST 12 L D Alkaline Phosphatase 135 H Creatine Kinase 33 L Total Protein 5.8 L Albumin 2.5 L Problem List - Problems (1) Atrial flutter Assessment/Plan: on metoprolol for HR control. F/u INR (presently 2.7). Warfarin held in anticipation of coronary angiogram. Addendum: today's INR is 1.9. Code(s): I48.92 - UNSPECIFIED ATRIAL FLUTTER Qualifiers: Atrial flutter type: unspecified Qualified Code(s): I48.92 - Unspecified atrial flutter (2) HLD (hyperlipidemia) Code(s): E78.5 - HYPERLIPIDEMIA, UNSPECIFIED (3) HTN (hypertension) Assessment/Plan: On carvedilol, lisinopril, nifedipine, Imdur. Hold furosemide (not in acute CHF; BP controlled). If BUN/Cr and electrolytes allow, start spironolactone (severely reduced LVEF). Code(s): I10 - ESSENTIAL (PRIMARY) HYPERTENSION Qualifiers: Hypertension type: essential hypertension Qualified Code(s): I10 - Essential (primary) hypertension (4) NSTEMI (non-ST elevated myocardial infarction) Assessment/Plan: 07/07/2016 [place]-->LAD stent at [facility]. Now with atypical chest pain elicited by left arm movement. TNI 0.02-->0.03. For coronary angiogram in am; f/u INR (2.7). Addendum: INR 1.9 today. 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 If LVEF does not improve with optimal doses of the above and present/future PCIs , will need ICD. Code(s): I50.22 - CHRONIC SYSTOLIC (CONGESTIVE) HEART FAILURE
--- NOTE | 2016-08-11 12:50 | PN ---
Progress Note, Physician History of Present Illness: Pt seen and examined at bedside. He is awake and alert. He is going to be transferred for cardiac cath. - Current Medication List Current Medications: Active Medications Acetaminophen (Tylenol -) 650 mg PO Q6H PRN PRN Reason: FEVER OR PAIN Albuterol/Ipratropium (Duoneb -) 1 amp NEB Q6H PRN PRN Reason: SHORTNESS OF BREATH Alprazolam (Xanax -) 0.25 mg PO Q8H PRN PRN Reason: ANXIETY Last Admin: 08/09/16 21:23 Dose: 0.25 mg Atorvastatin Calcium (Lipitor -) 20 mg PO HS [facility] Last Admin: 08/10/16 21:33 Dose: 20 mg Carvedilol (Coreg -) 12.5 mg PO BID [facility] Last Admin: 08/11/16 09:40 Dose: 12.5 mg Docusate Sodium (Colace -) 100 mg PO DAILY [facility] Last Admin: 08/11/16 09:39 Dose: 100 mg Donepezil HCl (Aricept -) 5 mg PO DAILY [facility] Last Admin: 08/11/16 09:39 Dose: 5 mg Finasteride (Proscar -) 5 mg PO DAILY [facility] Last Admin: 08/11/16 09:40 Dose: 5 mg Gabapentin (Neurontin -) 300 mg PO TID [facility] Last Admin: 08/11/16 05:26 Dose: 300 mg Insulin Aspart (Novolog Vial Sliding Scale -) 1 vial SQ ACHS [facility] PRN Reason: Protocol Last Admin: 08/11/16 11:47 Dose: Not Given Isosorbide Mononitrate (Imdur -) 30 mg PO DAILY [facility] Last Admin: 08/11/16 09:40 Dose: 30 mg Levetiracetam (Keppra -) 1,000 mg PO BID [facility] Last Admin: 08/11/16 09:39 Dose: 1,000 mg Lisinopril (Prinivil) 2.5 mg PO DAILY [facility] Last Admin: 08/11/16 09:40 Dose: 2.5 mg Mirtazapine (Remeron -) 30 mg PO HS [facility] Last Admin: 08/10/16 21:34 Dose: 30 mg Nifedipine (Procardia Xl -) 30 mg PO DAILY [facility] Last Admin: 08/11/16 09:39 Dose: 30 mg Pantoprazole Sodium (Protonix -) 40 mg PO DAILY [facility] Last Admin: 08/11/16 09:40 Dose: 40 mg Sitagliptin Phosphate (Januvia -) 100 mg PO DAILY@0700 [facility] Last Admin: 08/11/16 06:36 Dose: 100 mg Tamsulosin HCl (Flomax -) 0.4 mg PO DAILY@0830 [facility] Last Admin: 08/11/16 09:40 Dose: 0.4 mg Tramadol HCl (Ultram -) 50 mg PO Q8H PRN PRN Reason: PAIN Last Admin: 08/10/16 21:36 Dose: 50 mg - Objective Vital Signs: Vital Signs Temperature 98.4 F 08/11/16 11:14 Pulse Rate 81 08/11/16 11:14 Respiratory Rate 18 08/11/16 11:14 Blood Pressure 148/67 08/11/16 11:14 O2 Sat by Pulse Oximetry (%) 92 L 08/11/16 09:00 Constitutional: Yes: Calm Eyes: Yes: Conjunctiva Clear HENT: Yes: Atraumatic Neck: Yes: Supple Cardiovascular: Yes: S1, S2 Respiratory: Yes: On Nasal O2 Gastrointestinal: Yes: Soft Musculoskeletal: Yes: Muscle Weakness Edema: Yes Edema: LLE: 1+, RLE: 1+ Neurological: Yes: Oriented, Pre-Existing Deficit Labs: CBC, BMP 08/11/16 05:35 08/11/16 05:35 INR, PTT INR 2.71 (0.82-1.09) H 08/10/16 05:35 Problem List - Problems (1) Epilepsy Code(s): G40.909 - EPILEPSY, UNSP, NOT INTRACTABLE, WITHOUT STATUS EPILEPTICUS (2) Anemia Code(s): D64.9 - ANEMIA, UNSPECIFIED Qualifiers: Anemia type: unspecified type Qualified Code(s): D64.9 - Anemia, unspecified (3) CHF (congestive heart failure) Code(s): I50.9 - HEART FAILURE, UNSPECIFIED Qualifiers: Congestive heart failure chronicity: acute on chronic (4) CKD (chronic kidney disease) Code(s): N18.9 - CHRONIC KIDNEY DISEASE, UNSPECIFIED (5) CVA (cerebral infarction) Code(s): I63.9 - CEREBRAL INFARCTION, UNSPECIFIED Qualifiers: Cerebral infarction mechanism: unspecified mechanism Qualified Code( s): I63.9 - Cerebral infarction, unspecified (6) HLD (hyperlipidemia) Code(s): E78.5 - HYPERLIPIDEMIA, UNSPECIFIED (7) HTN (hypertension) Code(s): I10 - ESSENTIAL (PRIMARY) HYPERTENSION Qualifiers: Hypertension type: essential hypertension Qualified Code(s): I10 - Essential (primary) hypertension Assessment/Plan Current Medications Generic Name Dose Route Start Last Admin Trade Name Freq PRN Reason Stop Dose Admin Acetaminophen 650 mg 08/09/16 16:28 Tylenol - PO Q6H PRN FEVER OR PAIN Albuterol/Ipratropium 1 amp 08/09/16 16:28 Duoneb - NEB Q6H PRN SHORTNESS OF BREATH Alprazolam 0.25 mg 08/09/16 16:28 08/09/16 21:23 Xanax - PO 0.25 mg Q8H PRN Administration ANXIETY Atorvastatin Calcium 20 mg 08/10/16 22:00 08/10/16 21:33 Lipitor - PO 20 mg HS [facility] Administration Carvedilol 12.5 mg 08/09/16 22:00 08/11/16 09:40 Coreg - PO 12.5 mg BID [facility] Administration Docusate Sodium 100 mg 08/10/16 10:00 08/11/16 09:39 Colace - PO 100 mg DAILY [facility] Administration Donepezil HCl 5 mg 08/10/16 10:00 08/11/16 09:39 Aricept - PO 5 mg DAILY [facility] Administration Finasteride 5 mg 08/10/16 10:00 08/11/16 09:40 Proscar - PO 5 mg DAILY [facility] Administration Gabapentin 300 mg 08/09/16 22:00 08/11/16 05:26 Neurontin - PO 300 mg TID [facility] Administration Insulin Aspart 1 vial 08/09/16 16:30 08/11/16 11:47 Novolog Vial Sliding Scale - SQ Not Given ACHS [facility] Protocol Isosorbide Mononitrate 30 mg 08/10/16 10:00 08/11/16 09:40 Imdur - PO 30 mg DAILY [facility] Administration Levetiracetam 1,000 mg 08/09/16 22:00 08/11/16 09:39 Keppra - PO 1,000 mg BID [facility] Administration Lisinopril 2.5 mg 08/10/16 10:00 08/11/16 09:40 Prinivil PO 2.5 mg DAILY [facility] Administration Mirtazapine 30 mg 08/09/16 22:00 08/10/16 21:34 Remeron - PO 30 mg HS [facility] Administration Nifedipine 30 mg 08/10/16 10:00 08/11/16 09:39 Procardia Xl - PO 30 mg DAILY [facility] Administration Pantoprazole Sodium 40 mg 08/10/16 10:00 08/11/16 09:40 Protonix - PO 40 mg DAILY [facility] Administration Sitagliptin Phosphate 100 mg 08/10/16 07:00 08/11/16 06:36 Januvia - PO 100 mg DAILY@0700 [facility] Administration Tamsulosin HCl 0.4 mg 08/10/16 08:30 08/11/16 09:40 Flomax - PO 0.4 mg DAILY@0830 [facility] Administration Tramadol HCl 50 mg 08/09/16 16:28 08/10/16 21:36 Ultram - PO 50 mg Q8H PRN Administration PAIN Impression 1. CKD 2. left shoulder pain 3. hx CVA 4. DM 5. epilepsy 6. hyperlipidemia 7. hx anemia 8. hx a-fib 9. hypokalemia 10. CAD 11. CHF Plan - recommed fluids and mucomyst before cardiac cath - pt does have ckd and is at risk for ZACHARY, this was explained to him and his family - can give ns at 75 cc for 12 hours before procedure and 1200mg of mucomyst po q 12 hrs for 2 doses before and 2 doses after contrast - hold michael on day of cath - ortho eval appreciated - avoid nsaids - will follow Dr Jc
[2016-08-11 12:58] LABS: INR 1.98 (0.82-1.09); PROTHROMBIN TIME (PATIENT) 22.1 SEC (9.98-11.88)
[2016-08-11] MEDS: traMADol HCL 50 MG TABLET PO PRN (14:32)
[2016-08-11] MEDS: ATORVASTATIN CA 20 MG TABLET (FP) PO SCH (21:47)
[2016-08-11] MEDS: MIRTAZAPINE 30 MG TABLET (FP) PO SCH (21:47)
[2016-08-12 02:03] VITALS: PULSE 83
[2016-08-12] MEDS: GABAPENTIN 300 MG CAPSULE (FP) PO SCH (06:30)
[2016-08-12] MEDS: sitaGLIPtin PHOSPHATE 100 MG TABLET (FP) PO SCH (06:30)
[2016-08-12] MEDS: INSULIN SLIDING SCALE (NOVOLOG) 1 VIAL SQ SCH ×2 (06:30→11:15)
[2016-08-12 07:32] LABS: INR 1.56 (0.82-1.09); PROTHROMBIN TIME (PATIENT) 17.3 SEC (9.98-11.88)
--- NOTE | 2016-08-12 09:23 | PN ---
Progress Note, Physician Chief Complaint: Pt alert; asymptomatic unless he tries to move left shoulder History of Present Illness: 75 yr old man (b. [place]) with PMHx CVA, CAD (s/p [place] 07/07/2016-->[facility] LAD; further taged [facility] planned within the next few weeks), significant systolic LV dysfunction (<30% LBEF on recent ECHO), AF; HTN DM, MRSA diagnosed ( blood and urnie c/s negative 815 and 05/15; urine c/s negative 07/2016; nares c /s and blood c/s 07/2016 not known), now admitted with left shoulder pain after a slip and fall on that arm (this occurred yesterday; an Xray in [facility] ER showed no fracture). When he complained to the family that moving his arm started to cause chest pain that felt the same as before the [place] 05/2016, he was brought back to the ER. - Current Medication List Current Medications: Active Medications Acetaminophen (Tylenol -) 650 mg PO Q6H PRN PRN Reason: FEVER OR PAIN Last Admin: 08/11/16 17:08 Dose: 650 mg Albuterol/Ipratropium (Duoneb -) 1 amp NEB Q6H PRN PRN Reason: SHORTNESS OF BREATH Alprazolam (Xanax -) 0.25 mg PO Q8H PRN PRN Reason: ANXIETY Last Admin: 08/09/16 21:23 Dose: 0.25 mg Atorvastatin Calcium (Lipitor -) 20 mg PO HS [facility] Last Admin: 08/11/16 21:47 Dose: 20 mg Carvedilol (Coreg -) 12.5 mg PO BID [facility] Last Admin: 08/11/16 21:47 Dose: 12.5 mg Docusate Sodium (Colace -) 100 mg PO DAILY [facility] Last Admin: 08/11/16 09:39 Dose: 100 mg Donepezil HCl (Aricept -) 5 mg PO DAILY [facility] Last Admin: 08/11/16 09:39 Dose: 5 mg Finasteride (Proscar -) 5 mg PO DAILY [facility] Last Admin: 08/11/16 09:40 Dose: 5 mg Gabapentin (Neurontin -) 300 mg PO TID [facility] Last Admin: 08/12/16 06:30 Dose: 300 mg Insulin Aspart (Novolog Vial Sliding Scale -) 1 vial SQ ACHS [facility] PRN Reason: Protocol Last Admin: 08/12/16 06:30 Dose: Not Given Isosorbide Mononitrate (Imdur -) 30 mg PO DAILY [facility] Last Admin: 08/11/16 09:40 Dose: 30 mg Levetiracetam (Keppra -) 1,000 mg PO BID [facility] Last Admin: 08/11/16 21:47 Dose: 1,000 mg Lisinopril (Prinivil) 2.5 mg PO DAILY [facility] Last Admin: 08/11/16 09:40 Dose: 2.5 mg Mirtazapine (Remeron -) 30 mg PO HS [facility] Last Admin: 08/11/16 21:47 Dose: 30 mg Nifedipine (Procardia Xl -) 30 mg PO DAILY [facility] Last Admin: 08/11/16 09:39 Dose: 30 mg Pantoprazole Sodium (Protonix -) 40 mg PO DAILY [facility] Last Admin: 08/11/16 09:40 Dose: 40 mg Sitagliptin Phosphate (Januvia -) 100 mg PO DAILY@0700 [facility] Last Admin: 08/12/16 06:30 Dose: 100 mg Tamsulosin HCl (Flomax -) 0.4 mg PO DAILY@0830 [facility] Last Admin: 08/11/16 09:40 Dose: 0.4 mg Tramadol HCl (Ultram -) 50 mg PO Q8H PRN PRN Reason: PAIN Last Admin: 08/11/16 14:32 Dose: 50 mg - Objective Vital Signs: Vital Signs Temperature 98.6 F 08/12/16 02:00 Pulse Rate 83 08/12/16 02:00 Respiratory Rate 16 08/12/16 02:00 Blood Pressure 151/79 08/12/16 02:00 O2 Sat by Pulse Oximetry (%) 92 L 08/11/16 21:00 Constitutional: Yes: Calm Eyes: Yes: WNL HENT: Yes: WNL Neck: Yes: WNL Cardiovascular: Yes: Regular Rate and Rhythm, S2 (split) Respiratory: Yes: Diminished (left base) Gastrointestinal: Yes: Soft ...Rectal Exam: Yes: Deferred Genitourinary: No: Anuria Breast(s): Yes: WNL Musculoskeletal: Yes: Joint Stiffness (left shoulder), Muscle Weakness Extremities: Yes: Cool Edema: No Peripheral Pulses WNL: No Peripheral Pulses: Left Doralis Pedis: 1+, Right Dorsalis Pedis: 1+ Integumentary: Yes: WNL Neurological: Yes: Alert, Weakness Psychiatric: Yes: Alert Labs: CBC, BMP 08/11/16 05:35 08/11/16 05:35 INR, PTT INR 1.56 (0.82-1.09) H 08/12/16 06:00 Problem List - Problems (1) Atrial flutter Assessment/Plan: on metoprolol for HR control. F/u INR (presently 2.7). Warfarin held in anticipation of coronary angiogram. INR today 1.5. Code(s): I48.92 - UNSPECIFIED ATRIAL FLUTTER Qualifiers: Atrial flutter type: unspecified Qualified Code(s): I48.92 - Unspecified atrial flutter (2) HLD (hyperlipidemia) Assessment/Plan: Statin. total cholesterol 98 mt/dL. Code(s): E78.5 - HYPERLIPIDEMIA, UNSPECIFIED (3) HTN (hypertension) Assessment/Plan: On carvedilol, lisinopril, nifedipine, Imdur. Hold furosemide (not in acute CHF; BP controlled). If BUN/Cr and electrolytes allow, start spironolactone (severely reduced LVEF). Code(s): I10 - ESSENTIAL (PRIMARY) HYPERTENSION Qualifiers: Hypertension type: essential hypertension Qualified Code(s): I10 - Essential (primary) hypertension (4) NSTEMI (non-ST elevated myocardial infarction) Assessment/Plan: 07/07/2016 [place]-->[facility] stent at [facility]. Now with atypical chest pain elicited by left arm movement. TNI 0.02-->0.03. For coronary angiogram today. Addendum: INR 1.5 today. Code(s): I21.4 - NON-ST ELEVATION (NSTEMI) MYOCARDIAL INFARCTION (5) Shoulder pain, left Assessment/Plan: no significant pathology of bones or muscle (exept moderate OA) by CT. 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 If LVEF does not improve with optimal doses of the above and present/future PCIs , will need ICD. Code(s): I50.22 - CHRONIC SYSTOLIC (CONGESTIVE) HEART FAILURE (9) MRSA (methicillin resistant staph aureus) culture positive Assessment/Plan: cultures negative since treatment 02/2016. Code(s): Z22.322 - CARRIER OR SUSPECTED CARRIER OF METHICILLIN RESIS STAPH
[2016-08-12] MEDS: ISOSORBIDE MONONITRATE 30 MG TAB.SR.24H (FP) PO SCH (09:33)
[2016-08-12] MEDS: PANTOPRAZOLE 40 MG TABLET (FP) PO SCH (09:33)
[2016-08-12] MEDS: TAMSULOSIN HCL 0.4 MG CAP.ER.24H (FP) PO SCH (09:33)
[2016-08-12] MEDS: levETIRAcetam 500 MG TABLET (FP) PO SCH (09:33)
[2016-08-12] MEDS: DONEPEZIL HCL 5 MG TABLET (FP) PO SCH (09:33)
[2016-08-12] MEDS: FINASTERIDE 5 MG TABLET (FP) PO SCH (09:33)
[2016-08-12] MEDS: NIFEdipine E.R. 30 MG TABLET (FP) PO SCH (09:33)
[2016-08-12] MEDS: CARVEDILOL 12.5 MG TABLET (FP) PO SCH (09:33)
[2016-08-12] MEDS: LISINOPRIL 5 MG TABLET (FP) PO SCH (09:34)
[2016-08-12] MEDS: DOCUSATE SODIUM 100 MG CAPSULE (FP) PO SCH (09:34)
--- NOTE | 2016-08-12 09:52 | PN ---
Progress Note (short form) - Note Progress Note: NEUROLOGY History of Present Illness The patient is a 75 year old male, with significant past medical history of HTN , HLD, CHF, myocardial infarction(1992), CVA (with right sided residual weakness ) IDDM, gastritis, epilepsy, anemia, who presents today complaining of left shoulder pain. The patient was in the emergency room on 08/08/16, for left shoulder pain s/p fall 7 days ago and was discharged with Tramadol. He returned to the emergency room because of left shoulder pain is now radiating up the neck , to his left chest, and down to the fingers with associated tingling. He was seen by Orthopedics and further evaluation of possible rotator cuff injury. Neurologically, symptoms may be associated with a cervical radiculopathy. Ct head completed and reviewed and no acute changes noted. Spoke to his in detail today, Kiesha, known to me from the office and we discussed his recent fall in detail. Reassured her about CT head results. Active Medications Acetaminophen (Tylenol -) 650 mg PO Q6H PRN PRN Reason: FEVER OR PAIN Last Admin: 08/11/16 17:08 Dose: 650 mg Albuterol/Ipratropium (Duoneb -) 1 amp NEB Q6H PRN PRN Reason: SHORTNESS OF BREATH Alprazolam (Xanax -) 0.25 mg PO Q8H PRN PRN Reason: ANXIETY Last Admin: 08/09/16 21:23 Dose: 0.25 mg Atorvastatin Calcium (Lipitor -) 20 mg PO HS [facility] Last Admin: 08/11/16 21:47 Dose: 20 mg Carvedilol (Coreg -) 12.5 mg PO BID [facility] Last Admin: 08/12/16 09:33 Dose: 12.5 mg Docusate Sodium (Colace -) 100 mg PO DAILY [facility] Last Admin: 08/12/16 09:34 Dose: Not Given Donepezil HCl (Aricept -) 5 mg PO DAILY [facility] Last Admin: 08/12/16 09:33 Dose: 5 mg Finasteride (Proscar -) 5 mg PO DAILY [facility] Last Admin: 08/12/16 09:33 Dose: 5 mg Gabapentin (Neurontin -) 300 mg PO TID [facility] Last Admin: 08/12/16 06:30 Dose: 300 mg Insulin Aspart (Novolog Vial Sliding Scale -) 1 vial SQ ACHS [facility] PRN Reason: Protocol Last Admin: 08/12/16 06:30 Dose: Not Given Isosorbide Mononitrate (Imdur -) 30 mg PO DAILY [facility] Last Admin: 08/12/16 09:33 Dose: 30 mg Levetiracetam (Keppra -) 1,000 mg PO BID [facility] Last Admin: 08/12/16 09:33 Dose: 1,000 mg Lisinopril (Prinivil) 2.5 mg PO DAILY [facility] Last Admin: 08/12/16 09:34 Dose: 2.5 mg Mirtazapine (Remeron -) 30 mg PO HS [facility] Last Admin: 08/11/16 21:47 Dose: 30 mg Nifedipine (Procardia Xl -) 30 mg PO DAILY [facility] Last Admin: 08/12/16 09:33 Dose: 30 mg Pantoprazole Sodium (Protonix -) 40 mg PO DAILY [facility] Last Admin: 08/12/16 09:33 Dose: 40 mg Sitagliptin Phosphate (Januvia -) 100 mg PO DAILY@0700 [facility] Last Admin: 08/12/16 06:30 Dose: 100 mg Tamsulosin HCl (Flomax -) 0.4 mg PO DAILY@0830 [facility] Last Admin: 08/12/16 09:33 Dose: 0.4 mg Tramadol HCl (Ultram -) 50 mg PO Q8H PRN PRN Reason: PAIN Last Admin: 08/11/16 14:32 Dose: 50 mg *Physical Exam Vital Signs Period Temp Pulse Resp BP Sys/Quevedo Pulse Ox Last 24 Hr 98.2 F-100.1 F 81-85 16-18 137-151/67-79 92 GENERAL: The patient is in no acute distress. HEAD: Normal with no signs of trauma. EYES: PERRLA, EOMI, sclera anicteric, conjunctiva clear. ENT: Ears normal, nares patent, oropharynx clear without exudates. Moist mucous membranes. NECK: Normal range of motion, supple without lymphadenopathy, JVD, or masses. LUNGS: Breath sounds equal, clear to auscultation bilaterally. No wheezes, and no crackles. HEART:Regular rate and rhythm, normal S1 and S2 without murmur, rub or gallop. ABDOMEN: Soft, nontender, normoactive bowel sounds. No guarding, no rebound. EXTREMITIES: +Tenderness to palpation of the superior shoulder. Limited ROM of the left arm secondary to pain. No edema. No clubbing or cyanosis. No erythema. NEUROLOGICAL: Cranial nerves II through XII grossly intact. Normal speech. No focal neurological deficits. MUSCULOSKELETAL: Back nontender to palpation, no CVA tenderness SKIN: Warm, Dry, normal turgor, no rashes or lesions noted. CBCD WBC 8.1 K/mm3 (4.0-10.0) 08/11/16 05:35 RBC 3.46 M/mm3 (4.00-5.60) L 08/11/16 05:35 Hgb 9.1 GM/dL (11.7-16.9) L 08/11/16 05:35 Hct 28.4 % (35.4-49) L 08/11/16 05:35 MCV 82.0 fl (80-96) 08/11/16 05:35 MCHC 32.2 g/dl (32.0-35.9) 08/11/16 05:35 RDW 15.1 % (11.9-15.9) 08/11/16 05:35 Plt Count 201 K/MM3 (134-434) 08/11/16 05:35 MPV 8.3 fl (7.5-11.1) 08/11/16 05:35 CMP Sodium 141 mmol/L (136-145) 08/11/16 05:35 Potassium 4.2 mmol/L (3.5-5.1) 08/11/16 05:35 Chloride 106 mmol/L (98-107) 08/11/16 05:35 Carbon Dioxide 28 mmol/L (21-32) 08/11/16 05:35 Anion Gap 7 (8-16) L 08/11/16 05:35 BUN 25 mg/dL (7-18) H 08/11/16 05:35 Creatinine 1.8 mg/dL (0.7-1.3) H 08/11/16 05:35 Creat Clearance w eGFR 37.17 (>60) 08/11/16 05:35 Calcium 7.3 mg/dL (8.5-10.1) L 08/11/16 05:35 Total Bilirubin 0.4 mg/dL (0.2-1.0) D 08/11/16 05:35 AST 12 U/L (15-37) L D 08/11/16 05:35 ALT 19 U/L (12-78) D 08/11/16 05:35 Alkaline Phosphatase 135 U/L (45-117) H 08/11/16 05:35 Total Protein 5.8 g/dl (6.4-8.2) L 08/11/16 05:35 Albumin 2.5 g/dl (3.4-5.0) L 08/11/16 05:35 RAD/CHEST X-RAY PORTABLE* Chest pain. Chest semierect portable x-ray. Comparison study June 27, 2016. The heart is borderline enlarged. No evidence of widening of the superior mediastinum. Left pacemaker with single lead. No evidence of pneumonia, CHF, or large pleural effusion. No evidence of pulmonary infiltrates. Impression. No evidence of pulmonary infiltrates, CHF, or pneumothorax. CT head reviewed with no acute changes Plan: The patient is a 75 year old male, with significant past medical history of HTN , HLD, CHF, myocardial infarction(1992), CVA (with right sided residual weakness ) IDDM, gastritis, epilepsy, anemia, who presents today complaining of left shoulder pain. The patient was in the emergency room on 08/08/16, for left shoulder pain s/p fall 7 days ago and was discharged with Tramadol. He returned to the emergency room because of left shoulder pain is now radiating up the neck , to his left chest, and down to the fingers with associated tingling. He was seen by Orthopedics and further evaluation of possible rotator cuff injury. Neurologically, symptoms may be associated with a cervical radiculopathy. Ct head completed and reviewed and no acute changes noted. Spoke to his in detail today, Kiesha, known to me from the office and we discussed his recent fall in detail. Reassured her about CT head results. Is considering injections for his left shoulder.
[2016-08-12 09:56] VITALS: BP 158/93; TEMP 98.4
[2016-08-12] MEDS: traMADol HCL 50 MG TABLET PO PRN (12:18)
--- NOTE | 2016-08-15 20:17 | PN ---
Progress Note, Physician - Objective Vital Signs: Vital Signs Temperature 98.4 F 08/12/16 09:00 Pulse Rate 83 08/12/16 09:00 Respiratory Rate 18 08/12/16 09:00 Blood Pressure 158/93 08/12/16 09:00 O2 Sat by Pulse Oximetry (%) 97 08/12/16 09:00 Cardiovascular: Yes: S1, S2 Respiratory: Yes: CTA Bilaterally Gastrointestinal: Yes: Normal Bowel Sounds, Soft Labs: CBC, BMP 08/11/16 05:35 08/11/16 05:35 INR, PTT INR 1.56 (0.82-1.09) H 08/12/16 06:00 Problem List - Problems (1) Acute on chronic renal insufficiency Code(s): N28.9 - DISORDER OF KIDNEY AND URETER, UNSPECIFIED N18.9 - CHRONIC KIDNEY DISEASE, UNSPECIFIED (2) Atrial flutter Code(s): I48.92 - UNSPECIFIED ATRIAL FLUTTER Qualifiers: Atrial flutter type: unspecified Qualified Code(s): I48.92 - Unspecified atrial flutter (3) Atypical chest pain Code(s): R07.89 - OTHER CHEST PAIN (4) CHF (congestive heart failure) Code(s): I50.9 - HEART FAILURE, UNSPECIFIED Qualifiers: Congestive heart failure chronicity: acute on chronic (5) CKD (chronic kidney disease) Code(s): N18.9 - CHRONIC KIDNEY DISEASE, UNSPECIFIED (6) Diabetes mellitus Code(s): E11.9 - TYPE 2 DIABETES MELLITUS WITHOUT COMPLICATIONS Qualifiers: Diabetes mellitus type: type 1 Diabetes mellitus complication status: with hyperglycemia Qualified Code(s): E10.65 - Type 1 diabetes mellitus with hyperglycemia (7) Epilepsy Code(s): G40.909 - EPILEPSY, UNSP, NOT INTRACTABLE, WITHOUT STATUS EPILEPTICUS (8) HTN (hypertension) Code(s): I10 - ESSENTIAL (PRIMARY) HYPERTENSION Qualifiers: Hypertension type: essential hypertension Qualified Code(s): I10 - Essential (primary) hypertension (9) Shoulder pain, left Code(s): M25.512 - PAIN IN LEFT SHOULDER Qualifiers: Chronicity: acute Qualified Code(s): M25.512 - Pain in left shoulder (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 Code(s): E11.610 - TYPE 2 DIABETES MELLITUS W DIABETIC NEUROPATHIC ARTHROPATHY (11) Altered mental status Code(s): R41.82 - ALTERED MENTAL STATUS, UNSPECIFIED Assessment/Plan Reason For Visit: ATYPICAL CHEST PAIN Current Active Problems Abdominal pain (Acute) Altered mental status (Acute) Atrial flutter (Acute) Atypical chest pain (Acute) Chronic systolic CHF (congestive heart failure) (Acute) Delirium (Acute) Dementia (Acute) Epilepsy (Acute) Hypokalemia (Acute) Near syncope (Acute) Pacemaker (Acute) Stented coronary artery (Acute) Procedures: Principal: CT SCANS Other Procedures: CARDIAC EVAL Hospital Course: ADMITTED CARDIAC EVAL, MONITORED AND WORKED UP FOR CHEST PAIN. TRANSFERRING TO [facility] FOR CARDIAC CATH Condition: Stable - Instructions Diet, Activity, Other Instructions: LOW SODIIUM,ADA Referrals: Srini Nichols [Primary Care Provider] - Disposition: TRANSFER ACUTE CARE/OTHER HOSP DISCHARGED TO [facility]
== END 2016-08-12 13:57 | disposition short-term general hospital (02) | DRG 303 ==
LOC: JER 10:17 → JERBED 13:03 → OBSVTOIN 16:21 → J4S 17:15
PROVIDERS: ADMIT Family Medicine; ATTEND Family Medicine
DX: I25.110 Atherosclerotic heart disease of native coronary artery with unstable angina pectoris (principal); I69.351 Hemiplegia and hemiparesis following cerebral infarction affecting right dominant side; I48.92 Unspecified atrial flutter; I50.22 Chronic systolic (congestive) heart failure; I13.0 Hypertensive heart and chronic kidney disease with heart failure and stage 1 through stage 4 chronic kidney disease, or unspecified chronic kidney disease; N17.9 Acute kidney failure, unspecified; R07.9 Chest pain, unspecified; I25.2 Old myocardial infarction; E78.5 Hyperlipidemia, unspecified; Z95.5 Presence of coronary angioplasty implant and graft; E11.610 Type 2 diabetes mellitus with diabetic neuropathic arthropathy; E11.65 Type 2 diabetes mellitus with hyperglycemia; Z22.322 Carrier or suspected carrier of Methicillin resistant Staphylococcus aureus; D64.9 Anemia, unspecified; Z79.4 Long term (current) use of insulin; K21.9 Gastro-esophageal reflux disease without esophagitis; F41.9 Anxiety disorder, unspecified; F32.9 Major depressive disorder, single episode, unspecified; Z95.0 Presence of cardiac pacemaker; G40.909 Epilepsy, unspecified, not intractable, without status epilepticus; S46.012D Strain of muscle(s) and tendon(s) of the rotator cuff of left shoulder, subsequent encounter; S43.52XD Sprain of left acromioclavicular joint, subsequent encounter; W18.30XD Fall on same level, unspecified, subsequent encounter; E11.22 Type 2 diabetes mellitus with diabetic chronic kidney disease; N18.9 Chronic kidney disease, unspecified; F03.90 Unspecified dementia, unspecified severity, without behavioral disturbance, psychotic disturbance, mood disturbance, and anxiety
CPT/HCPCS: 36415; 70450-TC; 71010-TC; 72125-TC; 73030-TC-LT; 73060-TC-LT; 73200-TC-RT; 80048; 80053; 80061; 81003; 81015; 82550; 83721; 84484; 85025; 85027; 85610; 87086; 93005; 93010; 97116-GP; 97163-GP; 99282-25; 99284-25; G0378

== ENCOUNTER 2016-08-24 13:11 | Emergency (ER) | payer OTHER ==
--- NOTE | 2016-08-24 13:31 | PDOC ---
History of Present Illness - General Chief Complaint: Seizure Stated Complaint: SEIZURE Time Seen by Provider: 08/24/16 13:17 History Source: Patient, Family - History of Present Illness Associated Symptoms: reports: seizure. denies: chest pain, cough, fever/chills , headaches, nausea/vomiting, shortness of breath Past History - Past Medical History Allergies/Adverse Reactions: Allergies Allergy/AdvReac Type Severity Reaction Status Date / Time No Known Allergies Allergy Verified 08/24/16 13:27 Home Medications: Ambulatory Orders Atorvastatin Ca [Lipitor] 20 mg PO HS 05/20/16 Finasteride 5 mg PO DAILY 05/20/16 Nifedipine [Nifedipine Xl] 60 mg PO DAILY 05/20/16 Sitagliptin Phosphate [Januvia] 100 mg PO DAILY 05/20/16 Tamsulosin HCl 0.4 mg PO DAILY 05/20/16 Acetaminophen [Tylenol .Regular Strength -] 650 mg PO Q8H PRN #0 tablet Albuterol Sulfate Inhaler - [Ventolin HFA Inhaler -] 1 - 2 inh PO Q4H #1 inhaler 05/27/16 Donepezil HCl [Aricept -] 5 mg PO HS #30 tablet 05/27/16 Levetiracetam [Keppra -] 1,000 mg PO BID tablet 05/27/16 Ergocalciferol (Vitamin D2) [Vitamin D2] 1.25 unit PO DAILY 06/27/16 Furosemide [Lasix -] 20 mg PO DAILY 06/27/16 Omeprazole/Sodium Bicarbonate [Omeprazole-Bicarb 40-1,100 Cap] 1 each PO DAILY 06/27/16 Alprazolam [Xanax -] 0.5 mg PO DAILY 08/08/16 Carvedilol [Coreg] 12.5 mg PO BID 08/08/16 Cyanocobalamin (Vitamin B-12) [Nascobal] 1 each NS WEEKLY 08/08/16 Docusate Sodium [Colace -] 100 mg PO DAILY 08/08/16 Gabapentin [Neurontin -] 300 mg PO BID 08/08/16 Insulin Degludec [Tresiba Flextouch U-200] 42 unit SQ DAILY 08/08/16 Isosorbide Mononitrate [Isosorbide Mononitrate ER] 30 mg PO DAILY 08/08/16 Lisinopril [Zestril] 2.5 mg PO DAILY 08/08/16 Mirtazapine [Remeron -] 15 mg PO HS 08/08/16 Tramadol HCl 50 mg PO TID #21 tablet MDD 3 08/08/16 Warfarin Sodium [Coumadin] 5 mg PO HS 08/08/16 Acetaminophen [Tylenol .Regular Strength -] 650 mg PO Q6H PRN #0 tablet Albuterol 2.5/Ipratropium 0.5 [Duoneb -] 1 amp NEB Q6H PRN #0 amp 08/11/16 Alprazolam [Xanax] 0.25 mg PO Q8H PRN #0 tablet MDD 3 08/11/16 Atorvastatin Ca [Lipitor] 20 mg PO HS tablet 08/11/16 Carvedilol [Coreg -] 12.5 mg PO BID #0 tablet 08/11/16 Docusate Sodium [Colace -] 100 mg PO DAILY capsule 08/11/16 Donepezil HCl [Aricept -] 5 mg PO DAILY tablet 08/11/16 Finasteride [Proscar -] 5 mg PO DAILY #0 tablet 08/11/16 Gabapentin [Neurontin -] 300 mg PO TID capsule 08/11/16 Insulin Sliding Scale [Novolog Vial Sliding Scale -] 1 vial SQ ACHS units 08/11 Isosorbide Mononitrate [Imdur -] 30 mg PO DAILY tab.sr.24h 08/11/16 Levetiracetam [Keppra -] 1,000 mg PO BID tablet 08/11/16 Lisinopril [Prinivil] 2.5 mg PO DAILY tablet 08/11/16 Mirtazapine [Remeron -] 30 mg PO HS tablet 08/11/16 Nifedipine ER [Procardia XL -] 30 mg PO DAILY tab.er.24 08/11/16 Pantoprazole Sodium [Protonix -] 40 mg PO DAILY tablet.ec 08/11/16 Sitagliptin Phosphate [Januvia -] 100 mg PO DAILY@0700 ud 08/11/16 Tamsulosin HCl [Flomax -] 0.4 mg PO DAILY@0830 cap.er.24h 08/11/16 Tramadol HCl [Ultram -] 50 mg PO Q8H PRN #0 tablet MDD 3 08/11/16 Warfarin Na [Coumadin -] 5 mg PO DAILY@1800 tablet 08/11/16 Anemia: Yes Asthma: No Cancer: No Cardiac Disorders: Yes (mi 1992) 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)) COPD: No CHF: Yes Dementia: Yes Diabetes: Yes GI Disorders: Yes (Gastritis) Disorders: No HTN: Yes Hypercholesterolemia: Yes Liver Disease: No Suicide Attempt (Hx): No Seizures: Yes (epilepsy) Thyroid Disease: No - Surgical History Abdominal Surgery: Yes Appendectomy: No Cardiac Surgery: No Cholecystectomy: Yes Lung Surgery: No Neurologic Surgery: No Orthopedic Surgery: Yes (R HAND) - Immunization History Immunization Up to Date: No - Psycho/Social/Smoking Cessation Hx Anxiety: No Suicidal Ideation: No Smoking History: Never smoked Have you smoked in the past 12 months: No Number of Cigarettes Smoked Daily: 0 Hx Alcohol Use: No Drug/Substance Use Hx: No Substance Use Type: None Hx Substance Use Treatment: No Review of Systems - Review of Systems Constitutional: No: Chills, Fever Respiratory: No: Cough, Shortness of Breath Cardiac (ROS): No: Chest Pain ABD/GI: No: Nausea, Vomiting Neurological: Yes: Seizure. No: Headache, Dizziness *Physical Exam - Physical Exam General Appearance: Yes: Appropriately Dressed. No: Apparent Distress HEENT: positive: Normal Voice Neck: positive: Supple Respiratory/Chest: positive: Lungs Clear, Normal Breath Sounds. negative: Respiratory Distress Cardiovascular: positive: Regular Rate, S1, S2 Gastrointestinal/Abdominal: positive: Soft. negative: Tender Integumentary: positive: Dry, Warm Neurologic: positive: Fully Oriented, Alert, Normal Mood/Affect ED Treatment Course - LABORATORY CBC & Chemistry Diagram: 08/24/16 15:04 08/24/16 15:05 Medical Decision Making - Medical Decision Making 08/24/16 13:22 75 yo M, dementia, HTN, DM, CAD, NSTEMI, aflutter on xarelto, CHF, CVA, seizure on keppra with breakthrough seizures every several months, bib family for witnessed seizure. As per daughter, pt has a seizure while sitting in his recliner this afternoon. Daughter states pt has his eyes closed and foaming at the mouth, all of which is consistent with his seizures as per family, but what was different was that seizure lasted approximately 30 minutes, which is longer than the usual 15-20 minutes. States patient back to baseline now. Patient states he feels fine. Denies headache, dizziness, nausea, vomiting, chest pain , shortness of breath, abdominal pain, change in bowel movements, dysuria, fever or chills. Patient denies any obvious trigger for seizures such as insomnia and has been taking his medications See exam Breakthrough seizure Back to baseline and stable No obvious triggers -labs r/o infxn -discuss w/ neuro 08/24/16 14:05 Case d/w Dr Hanson, covering neuro for Dr Post, who rec labs and head CT. States if workup neg, pt can be discharged to f/u with Dr Post for seizure management 08/24/16 16:39 08/24/16 16:39 Labs/CT head negative. Patient has remained stable in ED with no additional seizures. As discussed with Dr. Hanson earlier, will discharge to follow-up with Dr. Post who pt states he has an appt with next week 08/24/16 18:32 *DC/Admit/Observation/Transfer Diagnosis at time of Disposition: Seizure - Discharge Dispostion Disposition: HOME Condition at time of disposition: Improved - Referrals Referrals: Srini Nichols [Primary Care Provider] - - Patient Instructions Additional Instructions: Please follow up with Dr Post. Return for worsening of seizures
[2016-08-24 13:43] VITALS: PULSE 60; BMI 26.7
[2016-08-24 14:28] VITALS: BP 91/55
[2016-08-24 15:17] LABS: URINE APPEARANCE CLEAR; URINE BILIRUBIN NEGATIVE (NEGATIVE); URINE COLOR LTYELLOW; URINE GLUCOSE (UA) 1+ (NEGATIVE); URINE KETONE NEGATIVE (NEGATIVE); URINE LEUK ESTERASE NEGATIVE (NEGATIVE); URINE NITRITE NEGATIVE (NEGATIVE); URINE UROBILINOGEN NEGATIVE E.U./dl (0.2-1.0)
[2016-08-24 15:18] LABS: EOSINOPHIL 4.1 % (0-4.5); MCH 26.3 pg (25.7-33.7); MCHC 32.4 g/dl (32.0-35.9); MEAN CELL VOLUME 81.1 fl (80-96); MEAN PLT VOLUME 8.4 fl (7.5-11.1); NEUTROPHILS 68.8 % (42.8-82.8); PLATELET COUNT 285 K/MM3 (134-434); RDW 15.7 % (11.9-15.9); WHITE BLOOD COUNT 6.3 K/mm3 (4.0-10.0)
[2016-08-24 15:25] LABS: URINE BLOOD 1+ (NEGATIVE); URINE PROTEIN 2+ (NEGATIVE)
[2016-08-24 15:28] LABS: URINE RBC 5 /hpf (0-3); URINE WBC 1 /hpf (3-5)
--- NOTE | 2016-08-24 15:30 | EKG ---
Test Reason : Blood Pressure : / mmHG Vent. Rate : 060 BPM Atrial Rate : 081 BPM P-R Int : 000 ms QRS Dur : 166 ms QT Int : 456 ms P-R-T Axes : 000 -64 120 degrees QTc Int : 456 ms Ventricular-paced rhythm ABNORMAL ECG WHEN COMPARED WITH ECG OF 10-AUG-2016 23:43, ELECTRONIC VENTRICULAR PACEMAKER HAS REPLACED SINUS RHYTHM Confirmed by MADISYN ENGLAND MD ([id number]) on 08/24/2016 3:29:43 PM Referred By: Confirmed By:MADISYN ENGLAND MD
[2016-08-24 16:22] LABS: ALBUMIN 2.9 g/dl (3.4-5.0); CALCIUM 7.5 mg/dL (8.5-10.1); CREATININE 1.8 mg/dL (0.7-1.3)
[2016-08-24 16:26] LABS: BILIRUBIN,TOTAL 0.3 mg/dL (0.2-1.0); TOT PROT 6.6 g/dl (6.4-8.2); TROPONIN I 0.04 ng/ml (0.00-0.05)
[2016-08-24 17:21] VITALS: TEMP 97.8
== END 2016-08-24 18:36 | disposition home or self-care (01) ==
LOC: JER 13:11
DX: R56.9 Unspecified convulsions (principal); F03.90 Unspecified dementia, unspecified severity, without behavioral disturbance, psychotic disturbance, mood disturbance, and anxiety; K52.9 Noninfective gastroenteritis and colitis, unspecified; E78.00 Pure hypercholesterolemia, unspecified; I10 Essential (primary) hypertension; E11.9 Type 2 diabetes mellitus without complications; I50.9 Heart failure, unspecified; I69.851 Hemiplegia and hemiparesis following other cerebrovascular disease affecting right dominant side; I25.2 Old myocardial infarction; Z79.01 Long term (current) use of anticoagulants; Z79.4 Long term (current) use of insulin
CPT/HCPCS: 36415; 70450-TC; 71010-TC; 80053; 80177; 81003; 81015; 82550; 83605; 84484; 85025; 93005; 93010; 99282-25

== ENCOUNTER 2016-09-30 10:46 | Inpatient (IN) | payer OTHER ==
--- NOTE | 2016-09-30 10:57 | PDOC ---
History of Present Illness - General History Source: Patient, Family Exam Limitations: No Limitations - History of Present Illness Initial Comments: 09/30/16 11:37 The patient is a 75 year old male BIBA, with a significant past medical history of anemia, RI(1992), CHF, CKD, CVA(1997-right sided weakness), diabetes mellitus , hypertension, hyperlipidemia, dementia, GERD, and epilepsy who presents to the emergency department complaining of shortness of breath that began earlier today. As per family member the patient O2 sat dropped to 90 percent since his SOB began. Per EMS the patient has water in his bilateral lung sultana. The patient received nitroglycerin during transport, with mild relief. Family member reports bilateral lower extremity edema, with right leg worse than left. She states the patient right leg swelling is part of his baseline. She reports right arm and hand edema, secondary to previous CVA. The patient denies any associated chest pain, diaphoresis, or palpitations. The patient denies any fever, chills, cough, headache, or dizziness. The patient denies any recent travel or sick contacts. The patient is on coumadin. Allergies: None reported. Past Surgical History: Cholecystectomy, right hand surgery Social History: Non-smoker. Denies alcohol or drug use. PCP: Dr. Mitchell Greenfield ([phone]) Weld Engineer: Dr. 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)) COPD: No CHF: Yes Dementia: Yes Diabetes: Yes GI Disorders: Yes (Gastritis) Disorders: No HTN: Yes Hypercholesterolemia: Yes Liver Disease: No Suicide Attempt (Hx): No Seizures: Yes (epilepsy) Thyroid Disease: No - Surgical History Abdominal Surgery: Yes Appendectomy: No Cardiac Surgery: No Cholecystectomy: Yes Lung Surgery: No Neurologic Surgery: No Orthopedic Surgery: Yes (R HAND) - Immunization History Immunization Up to Date: No - Psycho/Social/Smoking Cessation Hx Anxiety: No Suicidal Ideation: No Smoking History: Never smoked Have you smoked in the past 12 months: No Number of Cigarettes Smoked Daily: 0 Hx Alcohol Use: No Drug/Substance Use Hx: No Substance Use Type: None Hx Substance Use Treatment: No <TorresBrooke - Last Filed: 09/30/16 13:17> - Past Medical History Allergies/Adverse Reactions: Allergies Allergy/AdvReac Type Severity Reaction Status Date / Time No Known Allergies Allergy Verified 09/30/16 11:52 Home Medications: Ambulatory Orders Insulin Sliding Scale [Novolog Vial Sliding Scale -] 1 vial SQ ACHS units 08/11 Aspirin [ASA -] 81 mg PO DAILY 09/30/16 Atorvastatin Ca [Lipitor] 20 mg PO HS 09/30/16 Donepezil HCl [Aricept -] 5 mg PO DAILY 09/30/16 Ergocalciferol [Drisdol -] 50,000 unit PO Q7D@1000 09/30/16 Furosemide [Lasix] 20 mg PO DAILY 09/30/16 Guaifenesin [Siltussin SA] 100 mg PO PRN PRN 09/30/16 Insulin Degludec [Tresiba Flextouch U-100] 42 unit SQ DAILY 09/30/16 Isosorbide Mononitrate [Imdur -] 30 mg PO DAILY 09/30/16 Mirtazapine 15 mg PO HS 09/30/16 Nifedipine [Procardia Xl] 60 mg PO DAILY 09/30/16 Omeprazole 10 mg PO DAILY 09/30/16 Review of Systems - Review of Systems Able to Perform ROS?: Yes Comments:: 09/30/16 11:38 GENERAL/CONSTITUTIONAL: No fever or chills. No weakness. HEAD, EYES, EARS, NOSE AND THROAT: No change in vision. No ear pain or discharge. No sore throat. CARDIOVASCULAR: +Shortness of breath. No chest pain. RESPIRATORY: No cough, wheezing, or hemoptysis. GASTROINTESTINAL: No nausea, vomiting, diarrhea or constipation. GENITOURINARY: No dysuria, frequency, or change in urination. MUSCULOSKELETAL: +Bilateral leg swelling, +right arm swelling. No joint or muscle swelling or pain. No neck or back pain. SKIN: No rash NEUROLOGIC: No headache, vertigo, loss of consciousness, or change in strength/ sensation. ENDOCRINE: No increased thirst. No abnormal weight change. HEMATOLOGIC/LYMPHATIC: No anemia, easy bleeding, or history of blood clots. ALLERGIC/IMMUNOLOGIC: No hives or skin allergy. <Latonia Pinto - Last Filed: 09/30/16 12:12> *Physical Exam - Physical Exam Comments: 09/30/16 11:38 GENERAL: Awake, alert, and fully oriented. Tachypneic. HEAD: No signs of trauma EYES: PERRLA, EOMI, sclera anicteric, conjunctiva clear ENT: Auricles normal inspection, hearing grossly normal, nares patent, oropharynx clear without exudates. Moist mucosa NECK: Normal ROM, supple, no lymphadenopathy, JVD, or masses LUNGS: Moderately labored breathing. Diffuse rales bilaterally. No wheezes and no crackles HEART: Regular rate and rhythm, normal S1 and S2, no murmurs, rubs or gallops ABDOMEN: Soft, nontender, normoactive bowel sounds. No guarding, no rebound. No masses EXTREMITIES: Right sided weakness. No clubbing or cyanosis. No cords, erythema, or tenderness. 2+ pitting edema to the right lower extremity. 1+ pitting edema to the left lower edema. 2+ pitting edema to the right upper extremity. NEUROLOGICAL: Cranial nerves II through XII grossly intact. Normal speech, normal gait SKIN: Warm, Dry, normal turgor, no rashes or lesions noted. <Latonia Pinto - Last Filed: 09/30/16 12:12> ED Treatment Course - LABORATORY CBC & Chemistry Diagram: 09/30/16 10:50 09/30/16 11:27 - RADIOLOGY Radiograph Interpretation: 09/30/16 12:12 EXAM: CXR INTERPRETED BY: Dr. King REVIEWED BY: Dr. Torres IMPRESSION: Right pleural effusion. Left pleural effusion cannot be entirely excluded. <Latonia Pinto - Last Filed: 09/30/16 12:12> - LABORATORY CBC & Chemistry Diagram: 09/30/16 10:50 09/30/16 10:50 <Brooke Torres - Last Filed: 09/30/16 13:17> Medical Decision Making - Medical Decision Making 09/30/16 13:17 Patient reassessed- he is more comfortable at this point, able to speak full sentences. Much improved from initial evaluation. Will give lasix. Discussed with Dr. Wagner- will admit to tele. <Brooke Torres - Last Filed: 09/30/16 13:17> *DC/Admit/Observation/Transfer - Attestations Scribe Attestion: 09/30/16 11:39 Documentation prepared by Latonia Pinto, acting as medical oncologist for Brooke Torres MD. <Latonia Pinto - Last Filed: 09/30/16 12:12> - Discharge Dispostion Admit: Yes <Brooke Torres - Last Filed: 09/30/16 13:17> Diagnosis at time of Disposition: CHF exacerbation Qualifiers: Congestive heart failure type: unspecified congestive heart failure type Qualified Code(s): I50.9 - Heart failure, unspecified - Discharge Dispostion Condition at time of disposition: Guarded - Referrals Referrals: Hyun Greenfield MD [Primary Care Provider] -
[2016-09-30] MEDS ORDERED: ENALAPRILAT DIHYDRATE 1.25 MG/1 ML VIAL IVPB ONE (11:22)
[2016-09-30] MEDS ORDERED: ENALAPRILAT DIHYDRATE 2.5 MG/2 ML VIAL IVPB ONE (11:25)
[2016-09-30 11:50] VITALS: BMI 26.7
[2016-09-30 11:54] LABS: INR 2.09 (0.82-1.09); PROTHROMBIN TIME (PATIENT) 23.3 SEC (9.98-11.88)
[2016-09-30 11:55] LABS: BASOPHIL 0.5 % (0-2.0); EOSINOPHIL 3.6 % (0-4.5); MCH 25.4 pg (25.7-33.7); MCHC 31.6 g/dl (32.0-35.9); MEAN CELL VOLUME 80.1 fl (80-96); MEAN PLT VOLUME 7.8 fl (7.5-11.1); NEUTROPHILS 76.4 % (42.8-82.8); PLATELET COUNT 206 K/MM3 (134-434); WHITE BLOOD COUNT 6.4 K/mm3 (4.0-10.0)
[2016-09-30 12:10] LABS: ALBUMIN 2.6 g/dl (3.4-5.0); BILIRUBIN,TOTAL 0.3 mg/dL (0.2-1.0); CALCIUM 7.5 mg/dL (8.5-10.1); CREATININE 1.5 mg/dL (0.7-1.3); TOT PROT 6.2 g/dl (6.4-8.2)
[2016-09-30 12:13] LABS: TROPONIN I 0.05 ng/ml (0.00-0.05)
[2016-09-30] MEDS ORDERED: FUROSEMIDE 40 MG/4 ML INJECTABLE VIAL IVPUSH ONE (12:43)
[2016-09-30] MEDS ORDERED: FUROSEMIDE 40 MG/4 ML INJECTABLE VIAL ONE (13:23)
[2016-09-30] MEDS ORDERED: ACETAMINOPHEN 325 MG TABLET (FP) PO PRN (15:11)
--- NOTE | 2016-09-30 15:16 | EKG ---
Test Reason : Blood Pressure : / mmHG Vent. Rate : 085 BPM Atrial Rate : 085 BPM P-R Int : 150 ms QRS Dur : 136 ms QT Int : 280 ms P-R-T Axes : 094 -44 -15 degrees QTc Int : 333 ms NORMAL SINUS RHYTHM LEFT AXIS DEVIATION RIGHT BUNDLE BRANCH BLOCK INFERIOR INFARCT , AGE UNDETERMINED ANTEROSEPTAL INFARCT , AGE UNDETERMINED ABNORMAL ECG WHEN COMPARED WITH ECG OF 24-AUG-2016 13:24, SINUS RHYTHM HAS REPLACED ELECTRONIC VENTRICULAR PACEMAKER Confirmed by ERMA ANDREWS MD ([id number]) on 09/30/2016 3:15:58 PM Referred By: Confirmed By:ERMA ANDREWS MD
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
[2016-09-30 18:03] LABS: TROPONIN I 0.05 ng/ml (0.00-0.05)
[2016-09-30] MEDS: INSULIN SLIDING SCALE (NOVOLOG) 1 VIAL SQ SCH ×2 (18:20→22:19)
[2016-09-30] MEDS: WARFARIN NA 5 MG TABLET (UD) PO SCH (18:22)
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
[2016-09-30] MEDS: ATORVASTATIN CA 20 MG TABLET (FP) PO SCH (22:18)
[2016-09-30] MEDS: CARVEDILOL 12.5 MG TABLET (FP) PO SCH (22:18)
[2016-09-30] MEDS: GABAPENTIN 300 MG CAPSULE (FP) PO SCH (22:18)
[2016-09-30] MEDS: levETIRAcetam 500 MG TABLET (FP) PO SCH (22:18)
[2016-09-30] MEDS: INSULIN DETEMIR 100 UNITS/ML MDV SQ SCH (22:19)
[2016-09-30] MEDS: MIRTAZAPINE 15 MG TABLET (FP) PO SCH (22:19)
[2016-10-01] MEDS: INSULIN SLIDING SCALE (NOVOLOG) 1 VIAL SQ SCH ×4 (06:35→22:30)
[2016-10-01 08:14] LABS: MCH 25.5 pg (25.7-33.7); MCHC 31.7 g/dl (32.0-35.9); MEAN CELL VOLUME 80.2 fl (80-96); PLATELET COUNT 219 K/MM3 (134-434); RDW 17.3 % (11.9-15.9); WHITE BLOOD COUNT 7.7 K/mm3 (4.0-10.0)
[2016-10-01] MEDS ORDERED: TAMSULOSIN HCL 0.4 MG CAP.ER.24H (FP) PO SCH (08:30)
[2016-10-01] MEDS: sitaGLIPtin PHOSPHATE 50 MG TABLET PO SCH (08:33)
--- NOTE | 2016-10-01 09:04 | PN ---
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 As per family member the patient O2 sat dropped to 90 percent since his SOB began. Per EMS the patient has water in his bilateral lung sultana. The patient received nitroglycerin during transport, with mild relief. Family member reports bilateral lower extremity edema, with right leg worse than left. She states the patient right leg swelling is part of his baseline. She reports right arm and hand edema, secondary to previous CVA. The patient denies any associated chest pain, diaphoresis, or palpitations. The patient denies any fever, chills, cough, headache, or dizziness. The patient denies any recent travel or sick contacts. The patient is on coumadin. Allergies: None reported. Past Surgical History: Cholecystectomy, right hand surgery Social History: Non-smoker. Denies alcohol or drug use. PCP: Dr. Mitchell Greenfield ([phone]) Ferry Operator: Dr. López [facility] A. 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 nonSTEMI 2015 [place] Reduced EF 20-30% 2015 PCI TIBURCIO m,dLAD, PTCA dLAD 2015 - Current Medication List Current Medications: Active Medications Acetaminophen (Tylenol -) 650 mg PO Q6H PRN PRN Reason: FEVER OR PAIN Aspirin (Ecotrin -) 81 mg PO DAILY [facility] Atorvastatin Calcium (Lipitor -) 20 mg PO HS [facility] Last Admin: 09/30/16 22:18 Dose: 20 mg Carvedilol (Coreg -) 12.5 mg PO BID [facility] Last Admin: 09/30/16 22:18 Dose: 12.5 mg Clopidogrel Bisulfate (Plavix -) 75 mg PO DAILY [facility] Donepezil HCl (Aricept -) 5 mg PO DAILY [facility] Ergocalciferol (Drisdol -) 50,000 unit PO Q7D@1000 [facility] Finasteride (Proscar -) 5 mg PO DAILY [facility] Furosemide (Lasix Injection -) 40 mg IVPB DAILY [facility] Gabapentin (Neurontin -) 300 mg PO BID [facility] Last Admin: 09/30/16 22:18 Dose: 300 mg Insulin Aspart (Novolog Vial Sliding Scale -) 1 vial SQ [facility] PRN Reason: Protocol Last Admin: 10/01/16 06:35 Dose: Not Given Insulin Detemir (Levemir Vial) 30 units SQ HS [facility] Last Admin: 09/30/16 22:19 Dose: Not Given Isosorbide Mononitrate (Imdur -) 30 mg PO DAILY [facility] Levetiracetam (Keppra -) 1,000 mg PO BID [facility] Last Admin: 09/30/16 22:18 Dose: 1,000 mg Lisinopril (Prinivil) 2.5 mg PO DAILY [facility] Mirtazapine (Remeron -) 15 mg PO HS [facility] Last Admin: 09/30/16 22:19 Dose: 15 mg Nifedipine (Procardia Xl -) 60 mg PO DAILY [facility] Pantoprazole Sodium (Protonix -) 40 mg PO DAILY [facility] Sitagliptin Phosphate (Januvia -) 50 mg PO DAILY@0700 [facility] Last Admin: 10/01/16 08:33 Dose: 50 mg Tamsulosin HCl (Flomax -) 0.4 mg PO DAILY@0830 [facility] Last Admin: 10/01/16 08:28 Dose: 0.4 mg Warfarin Sodium (Coumadin -) 5 mg PO DAILY@1800 [facility] Last Admin: 09/30/16 18:22 Dose: 5 mg - Objective Vital Signs: Vital Signs Temperature 97.1 F L 10/01/16 06:00 Pulse Rate 84 10/01/16 06:00 Respiratory Rate 18 10/01/16 06:00 Blood Pressure 156/78 10/01/16 06:00 O2 Sat by Pulse Oximetry (%) 97 09/30/16 21:00 Eyes: Yes: WNL, Conjunctiva Clear, EOM Intact HENT: Yes: WNL, Atraumatic, Normocephalic Neck: Yes: WNL, Supple, Trachea Midline Cardiovascular: Yes: WNL, Regular Rate and Rhythm Respiratory: Yes: WNL, Regular, CTA Bilaterally Gastrointestinal: Yes: WNL, Normal Bowel Sounds Genitourinary: Yes: WNL Musculoskeletal: Yes: WNL Extremities: Yes: WNL Edema: No Edema: LLE: 1+, RLE: 2+ Integumentary: Yes: WNL Neurological: Yes: WNL, Alert, Oriented ...Motor Strength: WNL Psychiatric: Yes: WNL Labs: CBC, BMP 10/01/16 05:40 10/01/16 05:40 INR, PTT INR 2.09 (0.82-1.09) H D 09/30/16 10:50 Problem List - Problems (1) Abdominal pain Code(s): R10.9 - UNSPECIFIED ABDOMINAL PAIN Qualifiers: Abdominal location: generalized Qualified Code(s): R10.84 - Generalized abdominal pain (2) Altered mental status Code(s): R41.82 - ALTERED MENTAL STATUS, UNSPECIFIED (3) Atrial flutter Code(s): I48.92 - UNSPECIFIED ATRIAL FLUTTER Qualifiers: Atrial flutter type: unspecified Qualified Code(s): I48.92 - Unspecified atrial flutter (4) Atypical chest pain Code(s): R07.89 - OTHER CHEST PAIN (5) CHF exacerbation Code(s): I50.9 - HEART FAILURE, UNSPECIFIED Qualifiers: Congestive heart failure type: unspecified congestive heart failure type Qualified Code(s): I50.9 - Heart failure, unspecified (6) Chronic systolic CHF (congestive heart failure) Code(s): I50.22 - CHRONIC SYSTOLIC (CONGESTIVE) HEART FAILURE (7) Delirium Code(s): R41.0 - DISORIENTATION, UNSPECIFIED (8) Dementia Code(s): F03.90 - UNSPECIFIED DEMENTIA WITHOUT BEHAVIORAL DISTURBANCE Qualifiers: Dementia behavioral disturbance: without behavioral disturbance (9) Epilepsy Code(s): G40.909 - EPILEPSY, UNSP, NOT INTRACTABLE, WITHOUT STATUS EPILEPTICUS (10) Hypokalemia Code(s): E87.6 - HYPOKALEMIA (11) MRSA (methicillin resistant staph aureus) culture positive Code(s): Z22.322 - CARRIER OR SUSPECTED CARRIER OF METHICILLIN RESIS STAPH (12) Near syncope Code(s): R55 - SYNCOPE AND COLLAPSE (13) Pacemaker Code(s): Z95.0 - PRESENCE OF CARDIAC PACEMAKER (14) Stented coronary artery Code(s): Z95.5 - PRESENCE OF CORONARY ANGIOPLASTY IMPLANT AND GRAFT (15) ACS (acute coronary syndrome) Code(s): I24.9 - ACUTE ISCHEMIC HEART DISEASE, UNSPECIFIED (16) Acute on chronic renal failure Code(s): N17.9 - ACUTE KIDNEY FAILURE, UNSPECIFIED N18.9 - CHRONIC KIDNEY DISEASE, UNSPECIFIED (17) Acute on chronic renal insufficiency Code(s): N28.9 - DISORDER OF KIDNEY AND URETER, UNSPECIFIED N18.9 - CHRONIC KIDNEY DISEASE, UNSPECIFIED (18) Acute respiratory failure Code(s): J96.00 - ACUTE RESPIRATORY FAILURE, UNSP W HYPOXIA OR HYPERCAPNIA (19) Anemia Code(s): D64.9 - ANEMIA, UNSPECIFIED Qualifiers: Anemia type: unspecified type Qualified Code(s): D64.9 - Anemia, unspecified (20) Aspiration pneumonia Code(s): J69.0 - PNEUMONITIS DUE TO INHALATION OF FOOD AND VOMIT Qualifiers: Aspiration pneumonia type: unspecified Laterality: bilateral Lung location: unspecified part of lung Qualified Code(s): J69.0 - Pneumonitis due to inhalation of food and vomit (21) Bacteremia Code(s): R78.81 - BACTEREMIA (22) Bronchitis Code(s): J40 - BRONCHITIS, NOT SPECIFIED ACUTE OR CHRONIC (23) CHF (congestive heart failure) Code(s): I50.9 - HEART FAILURE, UNSPECIFIED Qualifiers: Congestive heart failure chronicity: acute on chronic (24) CKD (chronic kidney disease) Code(s): N18.9 - CHRONIC KIDNEY DISEASE, UNSPECIFIED (25) CVA (cerebral infarction) Code(s): I63.9 - CEREBRAL INFARCTION, UNSPECIFIED Qualifiers: Cerebral infarction mechanism: unspecified mechanism Qualified Code( s): I63.9 - Cerebral infarction, unspecified (26) Changes in consciousness Code(s): R40.4 - TRANSIENT ALTERATION OF AWARENESS (27) Chest pain Code(s): R07.9 - CHEST PAIN, UNSPECIFIED Qualifiers: Chest pain type: precordial chest pain Qualified Code(s): R07.2 - Precordial pain (28) Chronic diastolic CHF (congestive heart failure) Code(s): I50.32 - CHRONIC DIASTOLIC (CONGESTIVE) HEART FAILURE (29) DVT prophylaxis Code(s): [id number] - (30) Diabetes mellitus Code(s): E11.9 - TYPE 2 DIABETES MELLITUS WITHOUT COMPLICATIONS Qualifiers: Diabetes mellitus type: type 1 Diabetes mellitus complication status: with hyperglycemia Qualified Code(s): E10.65 - Type 1 diabetes mellitus with hyperglycemia (31) Diastolic CHF Code(s): I50.30 - UNSPECIFIED DIASTOLIC (CONGESTIVE) HEART FAILURE (32) Elevated INR Code(s): R79.1 - ABNORMAL COAGULATION PROFILE (33) Flank pain Code(s): R10.9 - UNSPECIFIED ABDOMINAL PAIN (34) GERD (gastroesophageal reflux disease) Code(s): K21.9 - GASTRO-ESOPHAGEAL REFLUX DISEASE WITHOUT ESOPHAGITIS (35) HLD (hyperlipidemia) Code(s): E78.5 - HYPERLIPIDEMIA, UNSPECIFIED (36) HTN (hypertension) Code(s): I10 - ESSENTIAL (PRIMARY) HYPERTENSION Qualifiers: Hypertension type: essential hypertension Qualified Code(s): I10 - Essential (primary) hypertension (37) Hypotension Code(s): I95.9 - HYPOTENSION, UNSPECIFIED (38) Hypoxia Code(s): R09.02 - HYPOXEMIA (39) NSTEMI (non-ST elevated myocardial infarction) Code(s): I21.4 - NON-ST ELEVATION (NSTEMI) MYOCARDIAL INFARCTION (40) Pneumonia Code(s): J18.9 - PNEUMONIA, UNSPECIFIED ORGANISM (41) Prolapsed internal hemorrhoids, grade 3 Code(s): K64.2 - THIRD DEGREE HEMORRHOIDS (42) Sciatica Code(s): M54.30 - SCIATICA, UNSPECIFIED SIDE (43) Seizure Code(s): R56.9 - UNSPECIFIED CONVULSIONS (44) Seizure disorder Code(s): G40.909 - EPILEPSY, UNSP, NOT INTRACTABLE, WITHOUT STATUS EPILEPTICUS (45) Sepsis Code(s): A41.9 - SEPSIS, UNSPECIFIED ORGANISM (46) Shoulder pain, left Code(s): M25.512 - PAIN IN LEFT SHOULDER Qualifiers: Chronicity: acute Qualified Code(s): M25.512 - Pain in left shoulder (47) Slurred speech Code(s): R47.81 - SLURRED SPEECH (48) Syncope Code(s): R55 - SYNCOPE AND COLLAPSE (49) Trapezius muscle strain Code(s): S46.819A - STRAIN OF MUSC/FASC/TEND AT SHLDR/UP ARM, UNSP ARM, INIT (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 The importance of chronic anticoagulation discussed with the patient. Cont AC BENIGN ESSENTIAL HYPERTENSION: Hypertension in the setting of hypertensive heart disease. Blood pressure is well controlled; therefore, I would recommend continuation of current medical treatment. I would recommend obtaining fasting lipid profile to reassure that LDL is below 70 mg/dl. If LDL is above 70 mg/dl I would recommend optimizing pharmacological treatment. In regards to patient education, signs and symptoms of both ACS and heart failure including but not limited to SOB, PND, HOANG, chest pressure or pain, nausea, arm or neck pain and weight gain reviewed. Interrogation of PPM showed normally functioning pacemaker during the last office visit. I would recommend routine follow up and continuation of trans- telephonic pacemaker interrogation. s/p PCI cont DAPT. Ischemic CMP. s/p revascularization. Echo done yesterday in my office showed [id number] severe hypokinesis with ejection fraction of 45%. To reconfirm improvement of EF and to further evaluate, I would recommend MUGA scan. CHF systolic - agree with IV lasix
[2016-10-01 09:08] LABS: ALBUMIN 2.8 g/dl (3.4-5.0); BILIRUBIN,TOTAL 0.3 mg/dL (0.2-1.0); CALCIUM 7.6 mg/dL (8.5-10.1); CREATININE 1.5 mg/dL (0.7-1.3); TOT PROT 6.6 g/dl (6.4-8.2)
[2016-10-01] MEDS: LISINOPRIL 5 MG TABLET (FP) PO SCH (09:16)
[2016-10-01] MEDS: DONEPEZIL HCL 5 MG TABLET (FP) PO SCH (09:17)
[2016-10-01] MEDS: levETIRAcetam 500 MG TABLET (FP) PO SCH ×2 (09:17→22:30)
[2016-10-01] MEDS: ASPIRIN COATED 81 MG TABLET.EC PO SCH (09:17)
[2016-10-01] MEDS: CLOPIDOGREL BISULFATE 75 MG TABLET (FP) PO SCH (09:17)
[2016-10-01] MEDS: CARVEDILOL 12.5 MG TABLET (FP) PO SCH ×2 (09:18→22:30)
[2016-10-01] MEDS: GABAPENTIN 300 MG CAPSULE (FP) PO SCH ×2 (09:18→22:30)
[2016-10-01] MEDS: NIFEdipine E.R 60 MG TABLET (UD) PO SCH (09:18)
[2016-10-01] MEDS: PANTOPRAZOLE 40 MG TABLET (FP) PO SCH (09:18)
[2016-10-01] MEDS: FINASTERIDE 5 MG TABLET (FP) PO SCH (09:18)
[2016-10-01] MEDS: ISOSORBIDE MONONITRATE 30 MG TAB.SR.24H (FP) PO SCH (09:19)
[2016-10-01] MEDS: FUROSEMIDE 40 MG/4 ML INJECTABLE VIAL IVPB SCH (09:19)
--- NOTE | 2016-10-01 10:39 | PN ---
Progress Note, Physician History of Present Illness: PULMONARY ALERT,FEELING BETTER,-RESP DISTRESS,-CP - Current Medication List Current Medications: Active Medications Acetaminophen (Tylenol -) 650 mg PO Q6H PRN PRN Reason: FEVER OR PAIN Aspirin (Ecotrin -) 81 mg PO DAILY [facility] Last Admin: 10/01/16 09:17 Dose: 81 mg Atorvastatin Calcium (Lipitor -) 20 mg PO HS [facility] Last Admin: 09/30/16 22:18 Dose: 20 mg Carvedilol (Coreg -) 12.5 mg PO BID [facility] Last Admin: 10/01/16 09:18 Dose: 12.5 mg Clopidogrel Bisulfate (Plavix -) 75 mg PO DAILY [facility] Last Admin: 10/01/16 09:17 Dose: 75 mg Donepezil HCl (Aricept -) 5 mg PO DAILY [facility] Last Admin: 10/01/16 09:17 Dose: 5 mg Ergocalciferol (Drisdol -) 50,000 unit PO Q7D@1000 [facility] Finasteride (Proscar -) 5 mg PO DAILY [facility] Last Admin: 10/01/16 09:18 Dose: 5 mg Furosemide (Lasix Injection -) 40 mg IVPB DAILY [facility] Last Admin: 10/01/16 09:19 Dose: 40 mg Gabapentin (Neurontin -) 300 mg PO BID [facility] Last Admin: 10/01/16 09:18 Dose: 300 mg Insulin Aspart (Novolog Vial Sliding Scale -) 1 vial SQ ACHS [facility] PRN Reason: Protocol Last Admin: 10/01/16 06:35 Dose: Not Given Insulin Detemir (Levemir Vial) 30 units SQ HS [facility] Last Admin: 09/30/16 22:19 Dose: Not Given Isosorbide Mononitrate (Imdur -) 30 mg PO DAILY [facility] Last Admin: 10/01/16 09:19 Dose: 30 mg Levetiracetam (Keppra -) 1,000 mg PO BID [facility] Last Admin: 10/01/16 09:17 Dose: 1,000 mg Lisinopril (Prinivil) 2.5 mg PO DAILY [facility] Last Admin: 10/01/16 09:16 Dose: 2.5 mg Mirtazapine (Remeron -) 15 mg PO HS [facility] Last Admin: 09/30/16 22:19 Dose: 15 mg Nifedipine (Procardia Xl -) 60 mg PO DAILY [facility] Last Admin: 10/01/16 09:18 Dose: 60 mg Pantoprazole Sodium (Protonix -) 40 mg PO DAILY [facility] Last Admin: 10/01/16 09:18 Dose: 40 mg Sitagliptin Phosphate (Januvia -) 50 mg PO DAILY@0700 [facility] Last Admin: 10/01/16 08:33 Dose: 50 mg Tamsulosin HCl (Flomax -) 0.4 mg PO DAILY@0830 [facility] Last Admin: 10/01/16 08:28 Dose: 0.4 mg Warfarin Sodium (Coumadin -) 5 mg PO DAILY@1800 [facility] Last Admin: 09/30/16 18:22 Dose: 5 mg - Objective Vital Signs: Vital Signs Temperature 97.1 F L 10/01/16 09:08 Pulse Rate 82 10/01/16 09:08 Respiratory Rate 18 10/01/16 09:08 Blood Pressure 153/79 10/01/16 09:08 O2 Sat by Pulse Oximetry (%) 97 10/01/16 09:00 Constitutional: Yes: Well Nourished, Calm Eyes: Yes: WNL HENT: Yes: WNL Neck: Yes: WNL Cardiovascular: Yes: Pulse Irregular, S1, S2 Respiratory: Yes: Diminished Gastrointestinal: Yes: Normal Bowel Sounds, Soft Extremities: Yes: WNL Edema: Yes Neurological: Yes: Other (R SIDED WEAKNESS) Labs: CBC, BMP 10/01/16 05:40 10/01/16 05:40 INR, PTT INR 2.09 (0.82-1.09) H D 09/30/16 10:50 Assessment/Plan Problem List - Problems (1) Atrial flutter Code(s): I48.92 - UNSPECIFIED ATRIAL FLUTTER Qualifiers: Atrial flutter type: unspecified Qualified Code(s): I48.92 - Unspecified atrial flutter (2) CHF exacerbation Code(s): I50.9 - HEART FAILURE, UNSPECIFIED Qualifiers: Congestive heart failure type: unspecified congestive heart failure type Qualified Code(s): I50.9 - Heart failure, unspecified (3) Chronic systolic CHF (congestive heart failure) Code(s): I50.22 - CHRONIC SYSTOLIC (CONGESTIVE) HEART FAILURE (4) CVA (cerebral vascular accident) Code(s): I63.9 - CEREBRAL INFARCTION, UNSPECIFIED (5) ASHD (arteriosclerotic heart disease) Code(s): I25.10 - ATHSCL HEART DISEASE OF [place] CORONARY ARTERY W/O ANG PCTRS Assessment/Plan O2 TO KEEP O2 SAT GREATER THAN 90% [employer] ANTICOAGULATION MONITOR I/Os DAILY WEIGHTS F/U CHEST X-RAYS DR TORRES
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
[2016-10-01] MEDS: WARFARIN NA 5 MG TABLET (UD) PO SCH (17:06)
[2016-10-01] MEDS: MIRTAZAPINE 15 MG TABLET (FP) PO SCH (22:30)
[2016-10-01] MEDS: ATORVASTATIN CA 20 MG TABLET (FP) PO SCH (22:30)
[2016-10-01] MEDS: INSULIN DETEMIR 100 UNITS/ML MDV SQ SCH (22:31)
[2016-10-02] MEDS: sitaGLIPtin PHOSPHATE 50 MG TABLET PO SCH (06:28)
[2016-10-02] MEDS: INSULIN SLIDING SCALE (NOVOLOG) 1 VIAL SQ SCH (06:28)
[2016-10-02 06:29] VITALS: BP 140/70; PULSE 62; TEMP 97
[2016-10-02] MEDS: NIFEdipine E.R 60 MG TABLET (UD) PO SCH (09:27)
[2016-10-02] MEDS: DONEPEZIL HCL 5 MG TABLET (FP) PO SCH (09:27)
[2016-10-02] MEDS: ASPIRIN COATED 81 MG TABLET.EC PO SCH (09:27)
[2016-10-02] MEDS: FINASTERIDE 5 MG TABLET (FP) PO SCH (09:28)
[2016-10-02] MEDS: LISINOPRIL 5 MG TABLET (FP) PO SCH (09:28)
[2016-10-02] MEDS: levETIRAcetam 500 MG TABLET (FP) PO SCH (09:28)
--- NOTE | 2016-10-02 09:28 | PN ---
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 As per family member the patient O2 sat dropped to 90 percent since his SOB began. Per EMS the patient has water in his bilateral lung sultana. The patient received nitroglycerin during transport, with mild relief. Family member reports bilateral lower extremity edema, with right leg worse than left. She states the patient right leg swelling is part of his baseline. She reports right arm and hand edema, secondary to previous CVA. The patient denies any associated chest pain, diaphoresis, or palpitations. The patient denies any fever, chills, cough, headache, or dizziness. The patient denies any recent travel or sick contacts. The patient is on coumadin. Allergies: None reported. Past Surgical History: Cholecystectomy, right hand surgery Social History: Non-smoker. Denies alcohol or drug use. PCP: Dr. Mitchell Greenfield ([phone]) Fireperson: Dr. López [facility] A. Flutter CHF diastolic /systolic CRI CVA HTN hyperlipidemia VVI PPM Sovran [employer] 2013 nonSTEMI 2015 [place] Reduced EF 20-30% 2015 PCI TIBURCIO m,dLAD, PTCA dLAD 2015 - Current Medication List Current Medications: Active Medications Acetaminophen (Tylenol -) 650 mg PO Q6H PRN PRN Reason: FEVER OR PAIN Aspirin (Ecotrin -) 81 mg PO DAILY [facility] Last Admin: 10/01/16 09:17 Dose: 81 mg Atorvastatin Calcium (Lipitor -) 20 mg PO HS [facility] Last Admin: 10/01/16 22:30 Dose: 20 mg Carvedilol (Coreg -) 12.5 mg PO BID [facility] Last Admin: 10/01/16 22:30 Dose: 12.5 mg Clopidogrel Bisulfate (Plavix -) 75 mg PO DAILY [facility] Last Admin: 10/01/16 09:17 Dose: 75 mg Donepezil HCl (Aricept -) 5 mg PO DAILY [facility] Last Admin: 10/01/16 09:17 Dose: 5 mg Ergocalciferol (Drisdol -) 50,000 unit PO Q7D@1000 [facility] Finasteride (Proscar -) 5 mg PO DAILY [facility] Last Admin: 10/01/16 09:18 Dose: 5 mg Furosemide (Lasix Injection -) 40 mg IVPB DAILY [facility] Last Admin: 10/01/16 09:19 Dose: 40 mg Gabapentin (Neurontin -) 300 mg PO BID [facility] Last Admin: 10/01/16 22:30 Dose: 300 mg Insulin Aspart (Novolog Vial Sliding Scale -) 1 vial SQ [facility] PRN Reason: Protocol Last Admin: 10/02/16 06:28 Dose: Not Given Insulin Detemir (Levemir Vial) 30 units SQ [facility] Last Admin: 10/01/16 22:31 Dose: Not Given Isosorbide Mononitrate (Imdur -) 30 mg PO DAILY [facility] Last Admin: 10/01/16 09:19 Dose: 30 mg Levetiracetam (Keppra -) 1,000 mg PO BID [facility] Last Admin: 10/01/16 22:30 Dose: 1,000 mg Lisinopril (Prinivil) 2.5 mg PO DAILY [facility] Last Admin: 10/01/16 09:16 Dose: 2.5 mg Mirtazapine (Remeron -) 15 mg PO HS [facility] Last Admin: 10/01/16 22:30 Dose: 15 mg Nifedipine (Procardia Xl -) 60 mg PO DAILY [facility] Last Admin: 10/01/16 09:18 Dose: 60 mg Pantoprazole Sodium (Protonix -) 40 mg PO DAILY [facility] Last Admin: 10/01/16 09:18 Dose: 40 mg Sitagliptin Phosphate (Januvia -) 50 mg PO DAILY@0700 [facility] Last Admin: 10/02/16 06:28 Dose: Not Given Tamsulosin HCl (Flomax -) 0.4 mg PO DAILY@0830 [facility] Last Admin: 10/01/16 08:28 Dose: 0.4 mg Warfarin Sodium (Coumadin -) 5 mg PO DAILY@1800 [facility] Last Admin: 10/01/16 17:06 Dose: 5 mg - Objective Vital Signs: Vital Signs Temperature 97.0 F L 10/02/16 06:00 Pulse Rate 62 10/02/16 06:00 Respiratory Rate 20 10/02/16 06:00 Blood Pressure 140/70 10/02/16 06:00 O2 Sat by Pulse Oximetry (%) 99 10/01/16 21:00 Eyes: Yes: WNL, Conjunctiva Clear, EOM Intact HENT: Yes: WNL, Atraumatic, Normocephalic Neck: Yes: WNL, Supple, Trachea Midline Cardiovascular: Yes: WNL, Regular Rate and Rhythm Respiratory: Yes: WNL, Regular, CTA Bilaterally Gastrointestinal: Yes: WNL, Normal Bowel Sounds Genitourinary: Yes: WNL Musculoskeletal: Yes: WNL Extremities: Yes: WNL Edema: No Integumentary: Yes: WNL Neurological: Yes: WNL, Alert, Oriented ...Motor Strength: WNL Psychiatric: Yes: WNL Labs: CBC, BMP 10/01/16 05:40 10/01/16 05:40 INR, PTT INR 2.09 (0.82-1.09) H D 09/30/16 10:50 Problem List - Problems (1) Abdominal pain Code(s): R10.9 - UNSPECIFIED ABDOMINAL PAIN Qualifiers: Abdominal location: generalized Qualified Code(s): R10.84 - Generalized abdominal pain (2) Altered mental status Code(s): R41.82 - ALTERED MENTAL STATUS, UNSPECIFIED (3) Atrial flutter Code(s): I48.92 - UNSPECIFIED ATRIAL FLUTTER Qualifiers: Atrial flutter type: unspecified Qualified Code(s): I48.92 - Unspecified atrial flutter (4) Atypical chest pain Code(s): R07.89 - OTHER CHEST PAIN (5) CHF exacerbation Code(s): I50.9 - HEART FAILURE, UNSPECIFIED Qualifiers: Congestive heart failure type: systolic Qualified Code(s): I50.23 - Acute on chronic systolic (congestive) heart failure (6) Chronic systolic CHF (congestive heart failure) Code(s): I50.22 - CHRONIC SYSTOLIC (CONGESTIVE) HEART FAILURE (7) Delirium Code(s): R41.0 - DISORIENTATION, UNSPECIFIED (8) Dementia Code(s): F03.90 - UNSPECIFIED DEMENTIA WITHOUT BEHAVIORAL DISTURBANCE Qualifiers: Dementia behavioral disturbance: without behavioral disturbance (9) Epilepsy Code(s): G40.909 - EPILEPSY, UNSP, NOT INTRACTABLE, WITHOUT STATUS EPILEPTICUS (10) Hypokalemia Code(s): E87.6 - HYPOKALEMIA (11) MRSA (methicillin resistant staph aureus) culture positive Code(s): Z22.322 - CARRIER OR SUSPECTED CARRIER OF METHICILLIN RESIS STAPH (12) Near syncope Code(s): R55 - SYNCOPE AND COLLAPSE (13) Pacemaker Code(s): Z95.0 - PRESENCE OF CARDIAC PACEMAKER (14) Stented coronary artery Code(s): Z95.5 - PRESENCE OF CORONARY ANGIOPLASTY IMPLANT AND GRAFT (15) ACS (acute coronary syndrome) Code(s): I24.9 - ACUTE ISCHEMIC HEART DISEASE, UNSPECIFIED (16) Acute on chronic renal failure Code(s): N17.9 - ACUTE KIDNEY FAILURE, UNSPECIFIED N18.9 - CHRONIC KIDNEY DISEASE, UNSPECIFIED (17) Acute on chronic renal insufficiency Code(s): N28.9 - DISORDER OF KIDNEY AND URETER, UNSPECIFIED N18.9 - CHRONIC KIDNEY DISEASE, UNSPECIFIED (18) Acute respiratory failure Code(s): J96.00 - ACUTE RESPIRATORY FAILURE, UNSP W HYPOXIA OR HYPERCAPNIA (19) Anemia Code(s): D64.9 - ANEMIA, UNSPECIFIED Qualifiers: Anemia type: unspecified type Qualified Code(s): D64.9 - Anemia, unspecified (20) Aspiration pneumonia Code(s): J69.0 - PNEUMONITIS DUE TO INHALATION OF FOOD AND VOMIT Qualifiers: Aspiration pneumonia type: unspecified Laterality: bilateral Lung location: unspecified part of lung Qualified Code(s): J69.0 - Pneumonitis due to inhalation of food and vomit (21) Bacteremia Code(s): R78.81 - BACTEREMIA (22) Bronchitis Code(s): J40 - BRONCHITIS, NOT SPECIFIED ACUTE OR CHRONIC (23) CHF (congestive heart failure) Code(s): I50.9 - HEART FAILURE, UNSPECIFIED Qualifiers: Congestive heart failure chronicity: acute on chronic (24) CKD (chronic kidney disease) Code(s): N18.9 - CHRONIC KIDNEY DISEASE, UNSPECIFIED (25) CVA (cerebral infarction) Code(s): I63.9 - CEREBRAL INFARCTION, UNSPECIFIED Qualifiers: Cerebral infarction mechanism: unspecified mechanism Qualified Code( s): I63.9 - Cerebral infarction, unspecified (26) Changes in consciousness Code(s): R40.4 - TRANSIENT ALTERATION OF AWARENESS (27) Chest pain Code(s): R07.9 - CHEST PAIN, UNSPECIFIED Qualifiers: Chest pain type: precordial chest pain Qualified Code(s): R07.2 - Precordial pain (28) Chronic diastolic CHF (congestive heart failure) Code(s): I50.32 - CHRONIC DIASTOLIC (CONGESTIVE) HEART FAILURE (29) DVT prophylaxis Code(s): AST7594 - (30) Diabetes mellitus Code(s): E11.9 - TYPE 2 DIABETES MELLITUS WITHOUT COMPLICATIONS Qualifiers: Diabetes mellitus type: type 1 Diabetes mellitus complication status: with hyperglycemia Qualified Code(s): E10.65 - Type 1 diabetes mellitus with hyperglycemia (31) Diastolic CHF Code(s): I50.30 - UNSPECIFIED DIASTOLIC (CONGESTIVE) HEART FAILURE (32) Elevated INR Code(s): R79.1 - ABNORMAL COAGULATION PROFILE (33) Flank pain Code(s): R10.9 - UNSPECIFIED ABDOMINAL PAIN (34) GERD (gastroesophageal reflux disease) Code(s): K21.9 - GASTRO-ESOPHAGEAL REFLUX DISEASE WITHOUT ESOPHAGITIS (35) HLD (hyperlipidemia) Code(s): E78.5 - HYPERLIPIDEMIA, UNSPECIFIED (36) HTN (hypertension) Code(s): I10 - ESSENTIAL (PRIMARY) HYPERTENSION Qualifiers: Hypertension type: essential hypertension Qualified Code(s): I10 - Essential (primary) hypertension (37) Hypotension Code(s): I95.9 - HYPOTENSION, UNSPECIFIED (38) Hypoxia Code(s): R09.02 - HYPOXEMIA (39) NSTEMI (non-ST elevated myocardial infarction) Code(s): I21.4 - NON-ST ELEVATION (NSTEMI) MYOCARDIAL INFARCTION (40) Pneumonia Code(s): J18.9 - PNEUMONIA, UNSPECIFIED ORGANISM (41) Prolapsed internal hemorrhoids, grade 3 Code(s): K64.2 - THIRD DEGREE HEMORRHOIDS (42) Sciatica Code(s): M54.30 - SCIATICA, UNSPECIFIED SIDE (43) Seizure Code(s): R56.9 - UNSPECIFIED CONVULSIONS (44) Seizure disorder Code(s): G40.909 - EPILEPSY, UNSP, NOT INTRACTABLE, WITHOUT STATUS EPILEPTICUS (45) Sepsis Code(s): A41.9 - SEPSIS, UNSPECIFIED ORGANISM (46) Shoulder pain, left Code(s): M25.512 - PAIN IN LEFT SHOULDER Qualifiers: Chronicity: acute Qualified Code(s): M25.512 - Pain in left shoulder (47) Slurred speech Code(s): R47.81 - SLURRED SPEECH (48) Syncope Code(s): R55 - SYNCOPE AND COLLAPSE (49) Trapezius muscle strain Code(s): S46.819A - STRAIN OF MUSC/FASC/TEND AT SHLDR/UP ARM, UNSP ARM, INIT (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 The importance of chronic anticoagulation discussed with the patient. Cont AC BENIGN ESSENTIAL HYPERTENSION: Hypertension in the setting of hypertensive heart disease. Blood pressure is well controlled; therefore, I would recommend continuation of current medical treatment. I would recommend obtaining fasting lipid profile to reassure that LDL is below 70 mg/dl. If LDL is above 70 mg/dl I would recommend optimizing pharmacological treatment. In regards to patient education, signs and symptoms of both ACS and heart failure including but not limited to SOB, PND, HOANG, chest pressure or pain, nausea, arm or neck pain and weight gain reviewed. Interrogation of PPM showed normally functioning pacemaker during the last office visit. I would recommend routine follow up and continuation of trans- telephonic pacemaker interrogation. s/p PCI cont DAPT. Ischemic CMP. s/p revascularization. Echo done yesterday in my office showed [id number] severe hypokinesis with ejection fraction of 45%. To reconfirm improvement of EF and to further evaluate, I would recommend MUGA scan. CHF systolic - agree with IV lasix
[2016-10-02] MEDS: CLOPIDOGREL BISULFATE 75 MG TABLET (FP) PO SCH (09:29)
[2016-10-02] MEDS: CARVEDILOL 12.5 MG TABLET (FP) PO SCH (09:29)
[2016-10-02] MEDS: ISOSORBIDE MONONITRATE 30 MG TAB.SR.24H (FP) PO SCH (09:29)
[2016-10-02] MEDS: PANTOPRAZOLE 40 MG TABLET (FP) PO SCH (09:29)
[2016-10-02] MEDS: FUROSEMIDE 40 MG/4 ML INJECTABLE VIAL IVPB SCH (09:30)
[2016-10-02] MEDS: GABAPENTIN 300 MG CAPSULE (FP) PO SCH (09:30)
--- NOTE | 2016-10-02 10:52 | PN ---
Progress Note, Physician History of Present Illness: PULMONARY ALERT,NAD,-SOB,-CONGESTION - Current Medication List Current Medications: Active Medications Acetaminophen (Tylenol -) 650 mg PO Q6H PRN PRN Reason: FEVER OR PAIN Aspirin (Ecotrin -) 81 mg PO DAILY [facility] Last Admin: 10/02/16 09:27 Dose: 81 mg Atorvastatin Calcium (Lipitor -) 20 mg PO HS [facility] Last Admin: 10/01/16 22:30 Dose: 20 mg Carvedilol (Coreg -) 12.5 mg PO BID [facility] Last Admin: 10/02/16 09:29 Dose: 12.5 mg Clopidogrel Bisulfate (Plavix -) 75 mg PO DAILY [facility] Last Admin: 10/02/16 09:29 Dose: 75 mg Donepezil HCl (Aricept -) 5 mg PO DAILY [facility] Last Admin: 10/02/16 09:27 Dose: 5 mg Ergocalciferol (Drisdol -) 50,000 unit PO Q7D@1000 [facility] Finasteride (Proscar -) 5 mg PO DAILY [facility] Last Admin: 10/02/16 09:28 Dose: 5 mg Furosemide (Lasix Injection -) 40 mg IVPB DAILY [facility] Last Admin: 10/02/16 09:30 Dose: 40 mg Gabapentin (Neurontin -) 300 mg PO BID [facility] Last Admin: 10/02/16 09:30 Dose: 300 mg Insulin Aspart (Novolog Vial Sliding Scale -) 1 vial SQ ACHS [facility] PRN Reason: Protocol Last Admin: 10/02/16 06:28 Dose: Not Given Insulin Detemir (Levemir Vial) 30 units SQ HS [facility] Last Admin: 10/01/16 22:31 Dose: Not Given Isosorbide Mononitrate (Imdur -) 30 mg PO DAILY [facility] Last Admin: 10/02/16 09:29 Dose: 30 mg Levetiracetam (Keppra -) 1,000 mg PO BID [facility] Last Admin: 10/02/16 09:28 Dose: 1,000 mg Lisinopril (Prinivil) 2.5 mg PO DAILY [facility] Last Admin: 10/02/16 09:28 Dose: 2.5 mg Mirtazapine (Remeron -) 15 mg PO HS [facility] Last Admin: 10/01/16 22:30 Dose: 15 mg Nifedipine (Procardia Xl -) 60 mg PO DAILY [facility] Last Admin: 03/05/17 09:27 Dose: 60 mg Pantoprazole Sodium (Protonix -) 40 mg PO DAILY [facility] Last Admin: 10/02/16 09:29 Dose: 40 mg Sitagliptin Phosphate (Januvia -) 50 mg PO DAILY@0700 [facility] Last Admin: 10/02/16 06:28 Dose: Not Given Tamsulosin HCl (Flomax -) 0.4 mg PO DAILY@0830 [facility] Last Admin: 10/01/16 08:28 Dose: 0.4 mg Warfarin Sodium (Coumadin -) 5 mg PO DAILY@1800 [facility] Last Admin: 10/01/16 17:06 Dose: 5 mg - Objective Vital Signs: Vital Signs Temperature 97.0 F L 10/02/16 06:00 Pulse Rate 62 10/02/16 06:00 Respiratory Rate 20 10/02/16 06:00 Blood Pressure 140/70 10/02/16 06:00 O2 Sat by Pulse Oximetry (%) 99 10/01/16 21:00 Constitutional: Yes: Well Nourished, Calm Eyes: Yes: WNL HENT: Yes: WNL Neck: Yes: WNL Cardiovascular: Yes: Pulse Irregular, S1, S2 Respiratory: Yes: Diminished, Rales (BIBASILAR RALES) Extremities: Yes: WNL Edema: No Neurological: Yes: Other (R HEMIPARESIS) Labs: CBC, BMP 10/01/16 05:40 10/01/16 05:40 INR, PTT INR 2.09 (0.82-1.09) H D 09/30/16 10:50 Assessment/Plan Problem List - Problems (1) Atrial flutter Code(s): I48.92 - UNSPECIFIED ATRIAL FLUTTER Qualifiers: Atrial flutter type: unspecified Qualified Code(s): I48.92 - Unspecified atrial flutter (2) CHF exacerbation Code(s): I50.9 - HEART FAILURE, UNSPECIFIED Qualifiers: Congestive heart failure type: unspecified congestive heart failure type Qualified Code(s): I50.9 - Heart failure, unspecified (3) Chronic systolic CHF (congestive heart failure) Code(s): I50.22 - CHRONIC SYSTOLIC (CONGESTIVE) HEART FAILURE (4) CVA (cerebral vascular accident) Code(s): I63.9 - CEREBRAL INFARCTION, UNSPECIFIED (5) ASHD (arteriosclerotic heart disease) Code(s): I25.10 - ATHSCL HEART DISEASE OF [place] CORONARY ARTERY W/O ANG PCTRS Assessment/Plan O2 TO KEEP O2 SAT GREATER THAN 90% [facility] [employer] ANTICOAGULATION MONITOR I/Os DAILY WEIGHTS F/U CHEST X-RAY DR TORRES
--- NOTE | 2016-10-02 11:18 | DS ---
Physical Examination Vital Signs: Vital Signs Temperature 97.0 F L 10/02/16 06:00 Pulse Rate 62 10/02/16 06:00 Respiratory Rate 20 10/02/16 06:00 Blood Pressure 140/70 10/02/16 06:00 O2 Sat by Pulse Oximetry (%) 99 10/01/16 21:00 Constitutional: Yes: No Distress Eyes: Yes: WNL HENT: Yes: WNL Neck: Yes: WNL Cardiovascular: Yes: Pulse Irregular Respiratory: Yes: WNL Gastrointestinal: Yes: WNL Renal/: Yes: WNL Musculoskeletal: Yes: WNL Extremities: Yes: WNL Edema: No Peripheral Pulses WNL: Yes Integumentary: Yes: WNL Wound/Incision: Yes: Clean/Dry Neurological: Yes: WNL ...Motor Strength: WNL Psychiatric: Yes: WNL Labs: CBC, BMP 10/01/16 05:40 10/01/16 05:40 Discharge Summary Reason For Visit: CHF Current Active Problems ASHD (arteriosclerotic heart disease) (Acute) Abdominal pain (Acute) Altered mental status (Acute) Atrial flutter (Acute) Atypical chest pain (Acute) CHF exacerbation (Acute) CVA (cerebral vascular accident) (Acute) Chronic systolic CHF (congestive heart failure) (Acute) Delirium (Acute) Dementia (Acute) Epilepsy (Acute) Hypokalemia (Acute) MRSA (methicillin resistant staph aureus) culture positive (Acute) Near syncope (Acute) Pacemaker (Acute) Stented coronary artery (Acute) Procedures: Principal: CXR Other Procedures: EKG/TELEMETRY Hospital Course: ADMITTED FOR ACUTE DECOMPENSATED SYSTOLIC CHF, DIURESED IV LASIX, MONITOR STRICT DIET AND CARDIAC F/U OUTPATIENT Condition: Guarded - Instructions Diet, Activity, Other Instructions: LOW SODIUM Referrals: Hyun Greenfield MD [Primary Care Provider] - Disposition: VNS/HOME HEALTH CARE - Home Medications Comprehensive Discharge Medication List: Ambulatory Orders Insulin Sliding Scale [Novolog Vial Sliding Scale -] 1 vial SQ ACHS units 08/11 Aspirin [ASA -] 81 mg PO DAILY 09/30/16 Atorvastatin Ca [Lipitor] 20 mg PO HS 09/30/16 Carvedilol 12.5 mg PO DAILY 09/30/16 Clopidogrel Bisulfate [Clopidogrel] 75 mg PO DAILY 09/30/16 Donepezil HCl [Aricept -] 5 mg PO DAILY 09/30/16 Ergocalciferol [Drisdol -] 50,000 unit PO Q7D@1000 09/30/16 Finasteride 5 mg PO DAILY 09/30/16 Furosemide [Lasix] 20 mg PO DAILY 09/30/16 Gabapentin 300 mg PO BID 09/30/16 Guaifenesin [Siltussin SA] 100 mg PO PRN PRN 09/30/16 Insulin Degludec [Tresiba Flextouch U-100] 42 unit SQ DAILY 09/30/16 Isosorbide Mononitrate [Imdur -] 30 mg PO DAILY 09/30/16 Levetiracetam 1,000 mg PO BID 09/30/16 Lisinopril [Zestril] 2.5 mg PO DAILY 09/30/16 Mirtazapine 15 mg PO HS 09/30/16 Nifedipine [Procardia Xl] 60 mg PO DAILY 09/30/16 Omeprazole 10 mg PO DAILY 09/30/16 Sitagliptin Phosphate [Januvia] 50 mg PO DAILY 09/30/16 Tamsulosin HCl 0.4 mg PO DAILY 09/30/16 Warfarin Na [Coumadin] 5 mg PO DAILY 09/30/16
[2016-10-03] MEDS ORDERED: FUROSEMIDE 40 MG TABLET (FP) PO SCH (10:00)
[2016-10-07] MEDS ORDERED: ERGOCALCIFEROL (VITAMIN D2) 50,000 UNIT CAPSULE (FP) PO SCH (10:00)
== END 2016-10-02 13:19 | disposition home or self-care (01) | DRG 291 ==
LOC: JER 10:46 → JERBED 13:16 → J4W 15:29
PROVIDERS: ADMIT Family Medicine; ATTEND Family Medicine
DX: I13.0 Hypertensive heart and chronic kidney disease with heart failure and stage 1 through stage 4 chronic kidney disease, or unspecified chronic kidney disease (principal); I50.21 Acute systolic (congestive) heart failure; G40.802 Other epilepsy, not intractable, without status epilepticus; I69.351 Hemiplegia and hemiparesis following cerebral infarction affecting right dominant side; I48.92 Unspecified atrial flutter; I24.9 Acute ischemic heart disease, unspecified; E11.9 Type 2 diabetes mellitus without complications; D64.9 Anemia, unspecified; K21.9 Gastro-esophageal reflux disease without esophagitis; F03.90 Unspecified dementia, unspecified severity, without behavioral disturbance, psychotic disturbance, mood disturbance, and anxiety; I25.2 Old myocardial infarction; E78.00 Pure hypercholesterolemia, unspecified; I48.91 Unspecified atrial fibrillation; F41.8 Other specified anxiety disorders; I25.10 Atherosclerotic heart disease of native coronary artery without angina pectoris; N18.9 Chronic kidney disease, unspecified; Z95.0 Presence of cardiac pacemaker
CPT/HCPCS: 36415; 71010-TC; 80053; 80061; 82550; 83036; 83721; 83880; 84484; 85025; 85027; 85610; 93005; 93010; 99285-25

== ENCOUNTER 2016-10-15 01:40 | Inpatient (IN) | payer OTHER ==
[2016-10-15] MEDS ORDERED: LEVOFLOXACIN 750 MG IVPB 150 ML IVPB ONE (01:48)
--- NOTE | 2016-10-15 01:51 | PDOC ---
[id number] No Limitations - History of Present Illness Initial Comments: 10/15/16 03:12 The patient is a 75 year old male with past medical history of hypertension, hyperlipidemia, diabetes, dementia, GERD, CHF, CKD, anemia, [place] (1992), CVA, epilepsy and MRSA who arrives to the ED from home via EMS for shortness of breath that began this evening. As per the , the patient was lying down at home when his symptoms began. She states that the patient was found to have water in his lungs as per EMS. The patient was seen in the ED on 10/07/16 for the same symptoms in which he was admitted for CHF exacerbation and was discharged on 10/10. The patient denies any recent illness, fever, chills, nausea, vomiting, diarrhea, chest pain, or urinary symptoms. PCP: Seth Wagner <Indu Cruz - Last Filed: 10/15/16 06:17> <Chadd Roman - Last Filed: 10/24/16 06:10> - General Stated Complaint: S.O.B. Past History <Indu Cruz - Last Filed: 10/15/16 06:17> - Past Medical History Anemia: Yes Asthma: No Cancer: No Cardiac Disorders: Yes (mi 1992) 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)) COPD: No CHF: Yes Dementia: Yes Diabetes: Yes GI Disorders: Yes (Gastritis) Disorders: No HTN: Yes Hypercholesterolemia: Yes Liver Disease: No Suicide Attempt (Hx): No Seizures: Yes (epilepsy) Thyroid Disease: No - Surgical History Abdominal Surgery: Yes Appendectomy: No Cardiac Surgery: No Cholecystectomy: Yes Lung Surgery: No Neurologic Surgery: No Orthopedic Surgery: Yes (R HAND) - Immunization History Immunization Up to Date: No - Psycho/Social/Smoking Cessation Hx Anxiety: No Suicidal Ideation: No Smoking History: Never smoked Have you smoked in the past 12 months: No Number of Cigarettes Smoked Daily: 0 Hx Alcohol Use: No Drug/Substance Use Hx: No Substance Use Type: None Hx Substance Use Treatment: No <Chadd Roman - Last Filed: 10/24/16 06:10> - Past Medical History Allergies/Adverse Reactions: Allergies Allergy/AdvReac Type Severity Reaction Status Date / Time No Known Allergies Allergy Verified 10/07/16 01:55 Home Medications: Ambulatory Orders Atorvastatin Ca [Lipitor] 20 mg PO HS 09/30/16 Isosorbide Mononitrate [Imdur -] 30 mg PO DAILY 09/30/16 Aspirin [ASA -] 81 mg PO DAILY #0 10/02/16 Carvedilol 12.5 mg PO DAILY #0 10/02/16 Clopidogrel Bisulfate [Clopidogrel] 75 mg PO DAILY #0 10/02/16 Donepezil HCl [Aricept -] 5 mg PO DAILY #0 10/02/16 Ergocalciferol [Drisdol -] 50,000 unit PO Q7D@1000 #0 10/02/16 Finasteride 5 mg PO DAILY #0 10/02/16 Gabapentin 300 mg PO BID #0 10/02/16 Levetiracetam 1,000 mg PO BID #0 10/02/16 Mirtazapine 15 mg PO HS #0 10/02/16 Nifedipine [Procardia Xl] 60 mg PO DAILY #0 10/02/16 Sitagliptin Phosphate [Januvia] 50 mg PO DAILY #0 10/02/16 Tamsulosin HCl 0.4 mg PO DAILY #0 10/02/16 Warfarin Na [Coumadin -] 5 mg PO DAILY #0 10/02/16 Lisinopril [Prinivil] 5 mg PO DAILY #30 tablet 10/10/16 Acetaminophen [Tylenol .Regular Strength -] 650 mg PO Q4H PRN #0 tablet Albuterol 0.083% Nebulizer Bertha [Ventolin 0.083% Nebulizer Soln -] 1 amp NEB Q6HPO amp 10/17/16 Docusate Sodium [Colace -] 100 mg PO BID PRN #0 10/17/16 Furosemide [Lasix -] 40 mg PO BID@0600,1400 tablet 10/17/16 Insulin (Levemir) [Levemir Vial] 15 units SQ BIDAC ml 10/17/16 Insulin (Novolog) [Novolog -] 0 units SQ ACHS units 10/17/16 Pantoprazole Sodium [Protonix -] 40 mg PO DAILY 10/17/16 Review of Systems - Review of Systems Able to Perform ROS?: Yes Comments:: 10/15/16 03:13 GENERAL/CONSTITUTIONAL: No fever or chills. No weakness. HEAD, EYES, EARS, NOSE AND THROAT: No change in vision. No ear pain or discharge. No sore throat. CARDIOVASCULAR: No chest pain. RESPIRATORY: Present: shortness of breath, cough No cough. GASTROINTESTINAL: No nausea, vomiting, diarrhea or constipation. GENITOURINARY: No dysuria, frequency, or change in urination. MUSCULOSKELETAL: No joint or muscle swelling or pain. No neck or back pain. SKIN: No rash NEUROLOGIC: No headache, vertigo, loss of consciousness, or change in strength/ sensation. ENDOCRINE: No increased thirst. No abnormal weight change. HEMATOLOGIC/LYMPHATIC: No anemia, easy bleeding, or history of blood clots. ALLERGIC/IMMUNOLOGIC: No hives or skin allergy. All Other Systems: Reviewed and Negative <Indu Cruz - Last Filed: 10/15/16 06:17> *Physical Exam - Physical Exam Comments: 10/15/16 03:17 GENERAL: Awake, alert, and fully oriented, in no acute distress HEAD: No signs of trauma EYES: PERRLA, EOMI, sclera anicteric, conjunctiva clear ENT: Auricles normal inspection, hearing grossly normal, nares patent, oropharynx clear without exudates. Moist mucosa NECK: Normal ROM, supple, no lymphadenopathy, JVD, or masses LUNGS: Breath sounds equal, clear to auscultation bilaterally. No wheezes, and no crackles HEART: Regular rate and rhythm, normal S1 and S2, no murmurs, rubs or gallops ABDOMEN: Soft, nontender, normoactive bowel sounds. No guarding, no rebound. No masses EXTREMITIES: Normal range of motion, no edema. No clubbing or cyanosis. No cords, erythema, or tenderness NEUROLOGICAL: Cranial nerves II through XII grossly intact. Normal speech, normal gait SKIN: Warm, Dry, normal turgor, no rashes or lesions noted. <Indu Cruz - Last Filed: 10/15/16 06:17> ED Treatment Course - LABORATORY CBC & Chemistry Diagram: 10/15/16 02:11 10/15/16 02:11 - ADDITIONAL ORDERS Additional order review: Laboratory Results 10/15/16 10/15/16 10/15/16 02:11 02:11 02:11 INR 1.97 H Sodium 145 Potassium 3.8 Chloride 104 Carbon Dioxide 33 H Anion Gap 8 BUN 29 H Creatinine 1.9 H Creat Clearance w eGFR 34.92 Random Glucose 119 H D Calcium 7.9 L Phosphorus 2.7 Magnesium 2.1 Total Bilirubin 0.5 D AST 18 D ALT 21 D Alkaline Phosphatase 134 H Creatine Kinase 99 Troponin I 0.04 B-Natriuretic Peptide 8468.33 H Total Protein 6.6 D Albumin 2.7 L D Lipase 102 102 10/15/16 02:11 RBC 4.43 MCV 78.7 L MCHC 31.4 L RDW 17.1 H MPV 7.9 Neutrophils % 82.0 Lymphocytes % 7.4 L D Monocytes % 7.2 Eosinophils % 2.9 Basophils % 0.5 - Medications Given in the ED: ED Medications Discontinued Medications Generic Name Dose Route Start Last Admin Trade Name Mehrdad PRN Reason Stop Dose Admin Levofloxacin 150 mls @ 100 mls/hr 10/15/16 01:48 10/15/16 02:17 Levaquin 750 Mg Premixed Ivpb - IVPB 10/15/16 03:17 100 mls/hr ONCE ONE Administration <Indu Cruz - Last Filed: 10/15/16 06:17> - LABORATORY CBC & Chemistry Diagram: 10/18/16 05:35 10/18/16 05:35 <Chadd Roman - Last Filed: 10/24/16 06:10> Medical Decision Making - Medical Decision Making 10/15/16 04:45 Phone call placed to patient's PCP, Dr. Seth Wagner. Awaiting call back from covering physician. 05:00 Second phone call placed to patient's PCP. 05:45 Phone call returned by covering physician Dr. Aguiar. Case was discussed. <Indu Cruz - Last Filed: 10/15/16 06:17> - Medical Decision Making 10/24/16 05:22 75yo m with SOB and all reassuring evaluation. BNP elevated. Requires in patient management and support. 10/24/16 05:24 10/24/16 06:03 <Chadd Roman - Last Filed: 10/24/16 06:10> *DC/Admit/Observation/Transfer - Attestations Scribe Attestion: 10/15/16 03:17 Documentation prepared by Indu Cruz, acting as medical clinic manager for Chadd Roman MD. <Indu Cruz - Last Filed: 10/15/16 06:17> <Chadd Roman - Last Filed: 10/24/16 06:10> Diagnosis at time of Disposition: Difficulty breathing - Discharge Dispostion Disposition: ALF FACILITY Condition at time of disposition: Fair - Referrals
[2016-10-15] MEDS ORDERED: ALBUTEROL SO4 2.5/IPRATROPIUM 0.5 INH SOL 3 ML VIAL.NEB. NEB ONE (01:59)
[2016-10-15 02:31] LABS: BASOPHIL 0.5 % (0-2.0); EOSINOPHIL 2.9 % (0-4.5); MCH 24.7 pg (25.7-33.7); MCHC 31.4 g/dl (32.0-35.9); MEAN CELL VOLUME 78.7 fl (80-96); MEAN PLT VOLUME 7.9 fl (7.5-11.1); PLATELET COUNT 223 K/MM3 (134-434); RDW 17.1 % (11.9-15.9); WHITE BLOOD COUNT 8.1 K/mm3 (4.0-10.0)
[2016-10-15 02:44] LABS: INR 1.97 (0.82-1.09)
[2016-10-15 02:56] LABS: ALBUMIN 2.7 g/dl (3.4-5.0); BILIRUBIN,TOTAL 0.5 mg/dL (0.2-1.0); CALCIUM 7.9 mg/dL (8.5-10.1); CREATININE 1.9 mg/dL (0.7-1.3); MAGNESIUM 2.1 mg/dL (1.8-2.4); PHOSPHOROUS 2.7 mg/dL (2.5-4.9); TOT PROT 6.6 g/dl (6.4-8.2)
[2016-10-15 02:57] LABS: TROPONIN I 0.04 ng/ml (0.00-0.05)
[2016-10-15] MEDS ORDERED: NITROGLYCERIN SUBLINGUAL 1/150 0.4 MG TAB SL ONE (04:46)
[2016-10-15] MEDS ORDERED: FUROSEMIDE 40 MG/4 ML INJECTABLE VIAL IVPUSH ONE (04:46)
[2016-10-15] MEDS ORDERED: FUROSEMIDE 40 MG/4 ML INJECTABLE VIAL ONE (04:57)
[2016-10-15 08:22] LABS: URINE APPEARANCE CLEAR; URINE BILIRUBIN NEGATIVE (NEGATIVE); URINE BLOOD NEGATIVE (NEGATIVE); URINE COLOR COLORLESS; URINE GLUCOSE (UA) NEGATIVE (NEGATIVE); URINE KETONE NEGATIVE (NEGATIVE); URINE LEUK ESTERASE NEGATIVE (NEGATIVE); URINE NITRITE NEGATIVE (NEGATIVE); URINE UROBILINOGEN NEGATIVE E.U./dl (0.2-1.0)
[2016-10-15 08:25] LABS: URINE PROTEIN 2+ (NEGATIVE)
[2016-10-15 08:33] LABS: URINE RBC 3 /hpf (0-3); URINE WBC <1 /hpf (3-5)
[2016-10-15] MEDS ORDERED: ACETAMINOPHEN 325 MG TABLET (FP) PO PRN (09:12)
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
[2016-10-15] MEDS: ASPIRIN 81 MG CHEWABLE TABLETS PO SCH (11:36)
[2016-10-15] MEDS: TAMSULOSIN HCL 0.4 MG CAP.ER.24H (FP) PO SCH (11:36)
[2016-10-15] MEDS: CARVEDILOL 12.5 MG TABLET (FP) PO SCH ×2 (11:36→22:10)
[2016-10-15] MEDS: DONEPEZIL HCL 5 MG TABLET (FP) PO SCH (11:36)
[2016-10-15] MEDS: sitaGLIPtin PHOSPHATE 50 MG TABLET PO SCH (11:36)
[2016-10-15] MEDS: levETIRAcetam 500 MG TABLET (FP) PO SCH ×2 (11:36→22:10)
[2016-10-15] MEDS: ISOSORBIDE MONONITRATE 30 MG TAB.SR.24H (FP) PO SCH (11:36)
[2016-10-15] MEDS: GABAPENTIN 300 MG CAPSULE (FP) PO SCH ×2 (11:37→22:11)
[2016-10-15] MEDS: CLOPIDOGREL BISULFATE 75 MG TABLET (FP) PO SCH (11:37)
[2016-10-15] MEDS: LISINOPRIL 5 MG TABLET (FP) PO SCH (11:37)
[2016-10-15] MEDS: PANTOPRAZOLE 40 MG TABLET (FP) PO SCH (11:37)
[2016-10-15] MEDS: FINASTERIDE 5 MG TABLET (FP) PO SCH (11:37)
[2016-10-15] MEDS: NIFEdipine E.R 60 MG TABLET (UD) PO SCH (11:37)
[2016-10-15] MEDS: INSULIN DETEMIR 100 UNITS/ML MDV SQ SCH ×2 (11:38→17:31)
--- NOTE | 2016-10-15 12:04 | PN ---
Progress Note, Physician History of Present Illness: Pt readmitted for sob and LE edema. Seen and examined today in nad. states he is feeling better after treatment in ER overnight. denies any chest pain, palpitations, lightheadedness, dizziness, syncope, near syncope, palpitations. - Current Medication List Current Medications: Active Medications Acetaminophen (Tylenol -) 650 mg PO Q4H PRN PRN Reason: FEVER OR PAIN Albuterol Sulfate (Ventolin 0.083% Nebulizer Soln -) 1 amp NEB Q6HPO [facility] Aspirin (Asa -) 81 mg PO DAILY [facility] Last Admin: 10/15/16 11:36 Dose: 81 mg Atorvastatin Calcium (Lipitor -) 20 mg PO HS [facility] Carvedilol (Coreg -) 12.5 mg PO BID [facility] Last Admin: 10/15/16 11:36 Dose: 12.5 mg Clopidogrel Bisulfate (Plavix -) 75 mg PO DAILY [facility] Last Admin: 10/15/16 11:37 Dose: 75 mg Donepezil HCl (Aricept -) 5 mg PO DAILY [facility] Last Admin: 10/15/16 11:36 Dose: 5 mg Finasteride (Proscar -) 5 mg PO DAILY [facility] Last Admin: 10/15/16 11:37 Dose: 5 mg Furosemide (Lasix Injection -) 40 mg IVPB BID@0600,1400 [facility] Gabapentin (Neurontin -) 300 mg PO BID [facility] Last Admin: 10/15/16 11:37 Dose: 300 mg Insulin Detemir (Levemir Vial) 15 units SQ BIDAC [facility] Last Admin: 10/15/16 11:38 Dose: 15 units Isosorbide Mononitrate (Imdur -) 30 mg PO DAILY [facility] Last Admin: 10/15/16 11:36 Dose: 30 mg Levetiracetam (Keppra -) 1,000 mg PO BID [facility] Last Admin: 10/15/16 11:36 Dose: 1,000 mg Lisinopril (Prinivil) 5 mg PO DAILY [facility] Last Admin: 10/15/16 11:37 Dose: 5 mg Mirtazapine (Remeron -) 15 mg PO HS [facility] Nifedipine (Procardia Xl -) 60 mg PO DAILY [facility] Last Admin: 10/15/16 11:37 Dose: 60 mg Pantoprazole Sodium (Protonix -) 40 mg PO DAILY [facility] Last Admin: 10/15/16 11:37 Dose: 40 mg Sitagliptin Phosphate (Januvia -) 50 mg PO DAILY@0700 [facility] Last Admin: 10/15/16 11:36 Dose: 50 mg Tamsulosin HCl (Flomax -) 0.4 mg PO DAILY@0830 [facility] Last Admin: 10/15/16 11:36 Dose: 0.4 mg Warfarin Sodium (Coumadin -) 5 mg PO DAILY@1800 [facility] - Objective Vital Signs: Vital Signs Temperature 97.8 F 10/15/16 01:40 Pulse Rate 66 10/15/16 07:22 Respiratory Rate 20 10/15/16 07:22 Blood Pressure 161/73 10/15/16 07:22 O2 Sat by Pulse Oximetry (%) 97 10/15/16 07:55 Constitutional: Yes: Well Nourished, No Distress, Calm Eyes: No: Conjunctiva Clear HENT: Yes: Atraumatic, Normocephalic Neck: Yes: Supple, Trachea Midline Cardiovascular: Yes: Regular Rate and Rhythm, Murmur, S1, S2. No: Bradycardia, Tachycardia, Pulse Irregular, Bruit, JVD, Gallop, Rub, S3, S4, Varicosities Respiratory: Yes: Regular, Rales. No: Rhonchi, Wheezes Gastrointestinal: Yes: Normal Bowel Sounds, Soft. No: Distention, Tenderness Extremities: Yes: WNL Edema: Yes Edema: LLE: 2+, RLE: 2+ Peripheral Pulses WNL: Yes Peripheral Pulses: Left Doralis Pedis: 2+, Right Dorsalis Pedis: 2+ Integumentary: Yes: WNL Neurological: Yes: Alert, Oriented Psychiatric: Yes: Alert, Oriented Labs: INR, PTT INR 1.97 (0.82-1.09) H 10/15/16 02:11 - ....Imaging Chest X-ray: Report Reviewed, Image Reviewed EKG: Report Reviewed, Image Reviewed Other: Report Reviewed, Image Reviewed Assessment/Plan SOB/Edema Moderate LV dysfx Acute on Chronic systolic CHF CAD PAF REC: Improving with diuresis, still volume overloaded Cont IV Lasix Monitor strict I/Os and daily weights monitor bun/creat monitor and replete electrolytes as needed Plan was for outpatient [facility] after last admission to further evaluate LVEF, not sure if this was done On coumadin for paf for goal INR 2-3 [facility]
[2016-10-15] MEDS ORDERED: DOCUSATE SODIUM 100 MG CAPSULE (FP) PO PRN (12:42)
[2016-10-15] MEDS: FUROSEMIDE 40 MG/4 ML INJECTABLE VIAL IVPB SCH (13:57)
[2016-10-15] MEDS: oxyCODONE HCL 5 MG TABLET PO PRN (13:58)
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
--- NOTE | 2016-10-15 16:26 | PN ---
Progress Note (short form) - Note Progress Note: Pt seen and examined. He c/o recent left shoulder pain, increased with activity. Denies any recent h/o trauma. He received a cortisone injection recently into the left shoulder with no relief. PE Left shoulder looks good (pt states today is a "good day") Excellent ROM in all planes: FF, Ab, Ex, Int No pain with full ROM. Very good resistance strength, 5/5 throughout. Negative signs for impingement: neg Hawkin's sign, neg Nash's test LUE grossly NVI Imp Recent shoulder bursitis, now fine. Rec NTD at this time He can f/u as an out pt if pain returns
[2016-10-15 17:14] VITALS: BMI 28.8
[2016-10-15] MEDS: WARFARIN NA 5 MG TABLET (UD) PO SCH (17:31)
[2016-10-15] MEDS: INSULIN (NOVOLOG) ASPART 100 UNITS/ML 10ML VIAL SQ SCH ×2 (17:32→21:45)
[2016-10-15] MEDS: ALBUTEROL SO4 0.083% IH SOL 2.5 MG/3 ML VIAL.NEB. NEB SCH ×3 (18:42→23:41)
--- NOTE | 2016-10-15 18:51 | PN ---
Progress Note (short form) - Note Progress Note: surgery pt seen and examined. full consult dictated. 75m with multiple medical problems, on anticoagulation and asa with noted swelling and pain to left forearm. on exam there is a fluctuant hematoma. needle aspiration confirms hematoma and no abscess. Plan- warm compresses. elevate if possible. no indication to drain hematoma in anticoagulated patient. will resorb over next 1-2 months. Draining would likey lead to wound complications
[2016-10-15] MEDS: ATORVASTATIN CA 20 MG TABLET (FP) PO SCH (22:10)
[2016-10-15] MEDS: MIRTAZAPINE 15 MG TABLET (FP) PO SCH (22:11)
[2016-10-16] MEDS: ALBUTEROL SO4 0.083% IH SOL 2.5 MG/3 ML VIAL.NEB. NEB SCH ×3 (06:14→17:58)
[2016-10-16] MEDS: INSULIN (NOVOLOG) ASPART 100 UNITS/ML 10ML VIAL SQ SCH ×4 (06:29→21:23)
[2016-10-16] MEDS: FUROSEMIDE 40 MG/4 ML INJECTABLE VIAL IVPB SCH ×2 (06:29→14:09)
[2016-10-16] MEDS: INSULIN DETEMIR 100 UNITS/ML MDV SQ SCH ×2 (06:29→17:26)
[2016-10-16] MEDS: sitaGLIPtin PHOSPHATE 50 MG TABLET PO SCH (06:29)
[2016-10-16 07:25] LABS: BASOPHIL 0.5 % (0-2.0); EOSINOPHIL 1.9 % (0-4.5); MCH 24.8 pg (25.7-33.7); MCHC 31.9 g/dl (32.0-35.9); MEAN CELL VOLUME 77.6 fl (80-96); MEAN PLT VOLUME 7.8 fl (7.5-11.1); NEUTROPHILS 81.4 % (42.8-82.8); PLATELET COUNT 202 K/MM3 (134-434); RDW 16.9 % (11.9-15.9); WHITE BLOOD COUNT 7.6 K/mm3 (4.0-10.0)
[2016-10-16 07:52] LABS: INR 2.08 (0.82-1.09); PROTHROMBIN TIME (PATIENT) 23.2 SEC (9.98-11.88)
[2016-10-16 07:53] LABS: CALCIUM 7.4 mg/dL (8.5-10.1)
[2016-10-16 08:01] LABS: ALBUMIN 2.2 g/dl (3.4-5.0); BILIRUBIN,TOTAL 0.3 mg/dL (0.2-1.0); CREATININE 1.8 mg/dL (0.7-1.3); TOT PROT 5.6 g/dl (6.4-8.2); TROPONIN I 0.06 ng/ml (0.00-0.05)
--- NOTE | 2016-10-16 08:34 | PN ---
Progress Note, Physician History of Present Illness: NO CP LESS SOB - Current Medication List Current Medications: Active Medications Acetaminophen (Tylenol -) 650 mg PO Q4H PRN PRN Reason: FEVER OR PAIN Albuterol Sulfate (Ventolin 0.083% Nebulizer Soln -) 1 amp NEB Q6HPO [facility] Last Admin: 10/16/16 06:14 Dose: 1 amp Aspirin (Asa -) 81 mg PO DAILY [facility] Last Admin: 10/15/16 11:36 Dose: 81 mg Atorvastatin Calcium (Lipitor -) 20 mg PO HS [facility] Last Admin: 10/15/16 22:10 Dose: 20 mg Carvedilol (Coreg -) 12.5 mg PO BID [facility] Last Admin: 10/15/16 22:10 Dose: 12.5 mg Clopidogrel Bisulfate (Plavix -) 75 mg PO DAILY [facility] Last Admin: 10/15/16 11:37 Dose: 75 mg Docusate Sodium (Colace -) 100 mg PO BID PRN PRN Reason: CONSTIPATION Donepezil HCl (Aricept -) 5 mg PO DAILY [facility] Last Admin: 10/15/16 11:36 Dose: 5 mg Finasteride (Proscar -) 5 mg PO DAILY [facility] Last Admin: 10/15/16 11:37 Dose: 5 mg Furosemide (Lasix Injection -) 40 mg IVPB BID@0600,1400 [facility] Last Admin: 10/16/16 06:29 Dose: 40 mg Gabapentin (Neurontin -) 300 mg PO BID [facility] Last Admin: 10/15/16 22:11 Dose: 300 mg Insulin Aspart (Novolog Vial) 0 units SQ ACHS [facility] PRN Reason: Protocol Last Admin: 10/16/16 06:29 Dose: Not Given Insulin Detemir (Levemir Vial) 15 units SQ BIDAC [facility] Last Admin: 10/16/16 06:29 Dose: Not Given Isosorbide Mononitrate (Imdur -) 30 mg PO DAILY [facility] Last Admin: 10/15/16 11:36 Dose: 30 mg Levetiracetam (Keppra -) 1,000 mg PO BID [facility] Last Admin: 10/15/16 22:10 Dose: 1,000 mg Lisinopril (Prinivil) 5 mg PO DAILY [facility] Last Admin: 10/15/16 11:37 Dose: 5 mg Mirtazapine (Remeron -) 15 mg PO HS [facility] Last Admin: 10/15/16 22:11 Dose: 15 mg Nifedipine (Procardia Xl -) 60 mg PO DAILY [facility] Last Admin: 10/15/16 11:37 Dose: 60 mg Oxycodone HCl (Roxicodone -) 5 mg PO Q6H PRN PRN Reason: PAIN Last Admin: 10/15/16 13:58 Dose: 5 mg Pantoprazole Sodium (Protonix -) 40 mg PO DAILY [facility] Last Admin: 10/15/16 11:37 Dose: 40 mg Sitagliptin Phosphate (Januvia -) 50 mg PO DAILY@0700 [facility] Last Admin: 10/16/16 06:29 Dose: Not Given Tamsulosin HCl (Flomax -) 0.4 mg PO DAILY@0830 [facility] Last Admin: 10/15/16 11:36 Dose: 0.4 mg Warfarin Sodium (Coumadin -) 5 mg PO DAILY@1800 [facility] Last Admin: 10/15/16 17:31 Dose: 5 mg - Objective Vital Signs: Vital Signs Temperature 97.8 F 10/16/16 06:00 Pulse Rate 64 10/16/16 06:00 Respiratory Rate 18 10/16/16 06:00 Blood Pressure 155/73 10/16/16 06:00 O2 Sat by Pulse Oximetry (%) 97 10/16/16 00:17 Cardiovascular: Yes: Murmur, S1, S2 Respiratory: Yes: Rales (AT THE BASES) Edema: LLE: Trace, RLE: Trace Labs: CBC, BMP 10/16/16 06:15 10/16/16 06:15 INR, PTT INR 2.08 (0.82-1.09) H 10/16/16 06:15 Problem List - Problems (1) CHF (congestive heart failure) Assessment/Plan: IV LASIX CARDIO CONSULT NOTED REVIEW LAST ECHO Laboratory Tests 10/15/16 10/16/16 02:11 06:15 BUN 29 H 26 H Creatinine 1.9 H 1.8 H Code(s): I50.9 - HEART FAILURE, UNSPECIFIED Qualifiers: Congestive heart failure type: systolic Congestive heart failure chronicity: acute on chronic Qualified Code(s): I50.23 - Acute on chronic systolic (congestive) heart failure (2) Atrial flutter Assessment/Plan: ON COUMADIN--INR 2 Code(s): I48.92 - UNSPECIFIED ATRIAL FLUTTER Qualifiers: Atrial flutter type: unspecified Qualified Code(s): I48.92 - Unspecified atrial flutter (3) Stented coronary artery Assessment/Plan: NO CP FOLLOW CE Code(s): Z95.5 - PRESENCE OF CORONARY ANGIOPLASTY IMPLANT AND GRAFT (4) COPD (chronic obstructive pulmonary disease) Assessment/Plan: NEBS PULM BIPAP PRN Code(s): J44.9 - CHRONIC OBSTRUCTIVE PULMONARY DISEASE, UNSPECIFIED (5) Shoulder pain, left Assessment/Plan: ORTHO NOTED--OUTPATIENT F/U Code(s): M25.512 - PAIN IN LEFT SHOULDER Qualifiers: Chronicity: acute Qualified Code(s): M25.512 - Pain in left shoulder (6) Hematoma Assessment/Plan: MONITOR WARM SOAKS Code(s): T14.8 - OTHER INJURY OF UNSPECIFIED BODY REGION
--- NOTE | 2016-10-16 09:52 | PN ---
Progress Note, Physician History of Present Illness: seen and examined today in nad. states he is feeling better. no overnight events. no new complaints. - Current Medication List Current Medications: Active Medications Acetaminophen (Tylenol -) 650 mg PO Q4H PRN PRN Reason: FEVER OR PAIN Albuterol Sulfate (Ventolin 0.083% Nebulizer Soln -) 1 amp NEB Q6HPO [facility] Last Admin: 10/16/16 06:14 Dose: 1 amp Aspirin (Asa -) 81 mg PO DAILY [facility] Last Admin: 10/15/16 11:36 Dose: 81 mg Atorvastatin Calcium (Lipitor -) 20 mg PO HS [facility] Last Admin: 10/15/16 22:10 Dose: 20 mg Carvedilol (Coreg -) 12.5 mg PO BID [facility] Last Admin: 10/15/16 22:10 Dose: 12.5 mg Clopidogrel Bisulfate (Plavix -) 75 mg PO DAILY [facility] Last Admin: 10/15/16 11:37 Dose: 75 mg Docusate Sodium (Colace -) 100 mg PO BID PRN PRN Reason: CONSTIPATION Donepezil HCl (Aricept -) 5 mg PO DAILY [facility] Last Admin: 10/15/16 11:36 Dose: 5 mg Finasteride (Proscar -) 5 mg PO DAILY [facility] Last Admin: 10/15/16 11:37 Dose: 5 mg Furosemide (Lasix Injection -) 40 mg IVPB BID@0600,1400 [facility] Last Admin: 10/16/16 06:29 Dose: 40 mg Gabapentin (Neurontin -) 300 mg PO BID [facility] Last Admin: 10/15/16 22:11 Dose: 300 mg Insulin Aspart (Novolog Vial) 0 units SQ ACHS [facility] PRN Reason: Protocol Last Admin: 10/16/16 06:29 Dose: Not Given Insulin Detemir (Levemir Vial) 15 units SQ BIDAC [facility] Last Admin: 10/16/16 06:29 Dose: Not Given Isosorbide Mononitrate (Imdur -) 30 mg PO DAILY [facility] Last Admin: 10/15/16 11:36 Dose: 30 mg Levetiracetam (Keppra -) 1,000 mg PO BID [facility] Last Admin: 10/15/16 22:10 Dose: 1,000 mg Lisinopril (Prinivil) 5 mg PO DAILY [facility] Last Admin: 10/15/16 11:37 Dose: 5 mg Mirtazapine (Remeron -) 15 mg PO HS [facility] Last Admin: 10/15/16 22:11 Dose: 15 mg Nifedipine (Procardia Xl -) 60 mg PO DAILY [facility] Last Admin: 10/15/16 11:37 Dose: 60 mg Oxycodone HCl (Roxicodone -) 5 mg PO Q6H PRN PRN Reason: PAIN Last Admin: 10/15/16 13:58 Dose: 5 mg Pantoprazole Sodium (Protonix -) 40 mg PO DAILY [facility] Last Admin: 10/15/16 11:37 Dose: 40 mg Sitagliptin Phosphate (Januvia -) 50 mg PO DAILY@0700 [facility] Last Admin: 10/16/16 06:29 Dose: Not Given Tamsulosin HCl (Flomax -) 0.4 mg PO DAILY@0830 [facility] Last Admin: 10/15/16 11:36 Dose: 0.4 mg Warfarin Sodium (Coumadin -) 5 mg PO DAILY@1800 [facility] Last Admin: 10/15/16 17:31 Dose: 5 mg - Objective Vital Signs: Vital Signs Temperature 97.8 F 10/16/16 06:00 Pulse Rate 64 10/16/16 06:00 Respiratory Rate 18 10/16/16 06:00 Blood Pressure 155/73 10/16/16 06:00 O2 Sat by Pulse Oximetry (%) 97 10/16/16 00:17 Constitutional: Yes: Well Nourished, No Distress, Calm Eyes: Yes: EOM Intact. No: Conjunctiva Clear HENT: Yes: Atraumatic, Normocephalic Neck: Yes: Supple, Trachea Midline Cardiovascular: Yes: Pulse Irregular, Murmur, S1, S2. No: Bradycardia, Tachycardia, Bruit, JVD, Gallop, Rub, S3, S4, Varicosities Respiratory: Yes: Regular, Rales. No: Rhonchi, SOB, Wheezes Gastrointestinal: Yes: Normal Bowel Sounds, Soft. No: Distention, Tenderness Extremities: Yes: WNL Edema: Yes Edema: LLE: 1+, RLE: 1+ Peripheral Pulses WNL: Yes Peripheral Pulses: Left Doralis Pedis: 2+, Right Dorsalis Pedis: 2+ Neurological: Yes: Alert, Oriented Psychiatric: Yes: Alert, Oriented Labs: CBC, BMP 10/16/16 06:15 10/16/16 06:15 INR, PTT INR 2.08 (0.82-1.09) H 10/16/16 06:15 - ....Imaging Chest X-ray: Report Reviewed, Image Reviewed EKG: Report Reviewed, Image Reviewed Other: Report Reviewed, Image Reviewed (tele-nsr, possible aflutter, AV paced) Assessment/Plan SOB/Edema Moderate LV dysfx Acute on Chronic systolic CHF CAD PAF REC: Improving with diuresis, but still volume overloaded Cont IV Lasix as ordered Monitor strict I/Os and daily weights monitor bun/creat monitor and replete electrolytes as needed Troponin was very mildly elevated and did not trend up with normal CK level in setting of CHF and WILMAN, unlikely ACS Pt was moved to tele yesterday due to this slight troponin elevation Pt was planned for an outpatient [facility] to evaluate LVEF, will f/up with Dr. Higgins if this was completed On coumadin for paf for goal INR 2-3 Coverage for Gisela
[2016-10-16] MEDS: PANTOPRAZOLE 40 MG TABLET (FP) PO SCH (10:53)
[2016-10-16] MEDS: ISOSORBIDE MONONITRATE 30 MG TAB.SR.24H (FP) PO SCH (10:53)
[2016-10-16] MEDS: CLOPIDOGREL BISULFATE 75 MG TABLET (FP) PO SCH (10:53)
[2016-10-16] MEDS: GABAPENTIN 300 MG CAPSULE (FP) PO SCH ×2 (10:53→21:29)
[2016-10-16] MEDS: LISINOPRIL 5 MG TABLET (FP) PO SCH (10:53)
[2016-10-16] MEDS: TAMSULOSIN HCL 0.4 MG CAP.ER.24H (FP) PO SCH (10:53)
[2016-10-16] MEDS: ASPIRIN 81 MG CHEWABLE TABLETS PO SCH (10:53)
[2016-10-16] MEDS: NIFEdipine E.R 60 MG TABLET (UD) PO SCH (10:54)
[2016-10-16] MEDS: FINASTERIDE 5 MG TABLET (FP) PO SCH (10:54)
[2016-10-16] MEDS: DONEPEZIL HCL 5 MG TABLET (FP) PO SCH (10:54)
[2016-10-16] MEDS: CARVEDILOL 12.5 MG TABLET (FP) PO SCH ×2 (10:54→21:29)
[2016-10-16] MEDS: levETIRAcetam 500 MG TABLET (FP) PO SCH ×2 (10:54→21:29)
--- NOTE | 2016-10-16 11:11 | EKG ---
Test Reason : Blood Pressure : / mmHG Vent. 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
--- NOTE | 2016-10-16 13:24 | PN ---
Progress Note (short form) - Note Progress Note: PULMONARY Breathing better today. No chest pain. No cough or wheezing. Last Vital Signs Temp Pulse Resp BP Pulse Ox 97.8 F 64 18 155/73 97 10/16/16 06:00 10/16/16 06:00 10/16/16 10:00 10/16/16 06:00 10/16/16 10:00 Gen: NAD at rest Heart: RRR Lung: basilar rales Abd: soft, nontender Ext: no edema CBC, BMP 10/16/16 06:15 10/16/16 06:15 Active Medications Acetaminophen (Tylenol -) 650 mg PO Q4H PRN PRN Reason: FEVER OR PAIN Albuterol Sulfate (Ventolin 0.083% Nebulizer Soln -) 1 amp NEB Q6HPO [facility] Last Admin: 10/16/16 12:17 Dose: 1 amp Aspirin (Asa -) 81 mg PO DAILY [facility] Last Admin: 10/16/16 10:53 Dose: 81 mg Atorvastatin Calcium (Lipitor -) 20 mg PO HS [facility] Last Admin: 10/15/16 22:10 Dose: 20 mg Carvedilol (Coreg -) 12.5 mg PO BID [facility] Last Admin: 10/16/16 10:54 Dose: 12.5 mg Clopidogrel Bisulfate (Plavix -) 75 mg PO DAILY [facility] Last Admin: 10/16/16 10:53 Dose: 75 mg Docusate Sodium (Colace -) 100 mg PO BID PRN PRN Reason: CONSTIPATION Donepezil HCl (Aricept -) 5 mg PO DAILY [facility] Last Admin: 10/16/16 10:54 Dose: 5 mg Finasteride (Proscar -) 5 mg PO DAILY [facility] Last Admin: 10/16/16 10:54 Dose: 5 mg Furosemide (Lasix Injection -) 40 mg IVPB BID@0600,1400 [facility] Last Admin: 10/16/16 06:29 Dose: 40 mg Gabapentin (Neurontin -) 300 mg PO BID [facility] Last Admin: 10/16/16 10:53 Dose: 300 mg Insulin Aspart (Novolog Vial) 0 units SQ ACHS [facility] PRN Reason: Protocol Last Admin: 10/16/16 12:05 Dose: Not Given Insulin Detemir (Levemir Vial) 15 units SQ BIDAC [facility] Last Admin: 10/16/16 06:29 Dose: Not Given Isosorbide Mononitrate (Imdur -) 30 mg PO DAILY [facility] Last Admin: 10/16/16 10:53 Dose: 30 mg Levetiracetam (Keppra -) 1,000 mg PO BID [facility] Last Admin: 10/16/16 10:54 Dose: 1,000 mg Lisinopril (Prinivil) 5 mg PO DAILY [facility] Last Admin: 10/16/16 10:53 Dose: 5 mg Mirtazapine (Remeron -) 15 mg PO HS [facility] Last Admin: 10/15/16 22:11 Dose: 15 mg Nifedipine (Procardia Xl -) 60 mg PO DAILY [facility] Last Admin: 10/16/16 10:54 Dose: 60 mg Oxycodone HCl (Roxicodone -) 5 mg PO Q6H PRN PRN Reason: PAIN Last Admin: 10/15/16 13:58 Dose: 5 mg Pantoprazole Sodium (Protonix -) 40 mg PO DAILY [facility] Last Admin: 10/16/16 10:53 Dose: 40 mg Sitagliptin Phosphate (Januvia -) 50 mg PO DAILY@0700 [facility] Last Admin: 10/16/16 06:29 Dose: Not Given Tamsulosin HCl (Flomax -) 0.4 mg PO DAILY@0830 [facility] Last Admin: 10/16/16 10:53 Dose: 0.4 mg Warfarin Sodium (Coumadin -) 5 mg PO DAILY@1800 [facility] Last Admin: 10/15/16 17:31 Dose: 5 mg A/P Acute on Chronic LV Systolic Heart Failure Pleural Effusions from above Paroxysmal Atrial Fibrillation HTN DM Hyperlipidemia - continue lasix - monitor urine output, creatinine - daily weights, I/Os - O2 as needed - will need ambulatory SpO2 before discharge to assess for home O2 as said his SpO2 was in 70s with EMS - rate control - continue anticoagulation Problem List - Problems (1) Acute on chronic systolic (congestive) heart failure Code(s): I50.23 - ACUTE ON CHRONIC SYSTOLIC (CONGESTIVE) HEART FAILURE (2) Pleural effusion Code(s): J90 - PLEURAL EFFUSION, NOT ELSEWHERE CLASSIFIED (3) Paroxysmal atrial fibrillation Code(s): I48.0 - PAROXYSMAL ATRIAL FIBRILLATION (4) Diabetes mellitus Code(s): E11.9 - TYPE 2 DIABETES MELLITUS WITHOUT COMPLICATIONS Qualifiers: Diabetes mellitus type: type 1 Diabetes mellitus complication status: with hyperglycemia Qualified Code(s): E10.65 - Type 1 diabetes mellitus with hyperglycemia (5) HLD (hyperlipidemia) Code(s): E78.5 - HYPERLIPIDEMIA, UNSPECIFIED (6) HTN (hypertension) Code(s): I10 - ESSENTIAL (PRIMARY) HYPERTENSION Qualifiers: Hypertension type: essential hypertension Qualified Code(s): I10 - Essential (primary) hypertension
[2016-10-16] MEDS: oxyCODONE HCL 5 MG TABLET PO PRN (14:17)
[2016-10-16] MEDS: WARFARIN NA 5 MG TABLET (UD) PO SCH (17:26)
[2016-10-16] MEDS: MIRTAZAPINE 15 MG TABLET (FP) PO SCH (21:29)
[2016-10-16] MEDS: ATORVASTATIN CA 20 MG TABLET (FP) PO SCH (21:29)
[2016-10-17] MEDS: INSULIN DETEMIR 100 UNITS/ML MDV SQ SCH ×2 (06:00→17:19)
[2016-10-17] MEDS: ALBUTEROL SO4 0.083% IH SOL 2.5 MG/3 ML VIAL.NEB. NEB SCH ×5 (06:00→23:07)
[2016-10-17] MEDS: INSULIN (NOVOLOG) ASPART 100 UNITS/ML 10ML VIAL SQ SCH ×4 (06:00→21:19)
[2016-10-17] MEDS: sitaGLIPtin PHOSPHATE 50 MG TABLET PO SCH (06:00)
[2016-10-17] MEDS: FUROSEMIDE 40 MG/4 ML INJECTABLE VIAL IVPB SCH (06:06)
[2016-10-17 07:03] LABS: BASOPHIL 0.4 % (0-2.0); EOSINOPHIL 3.6 % (0-4.5); MCH 24.7 pg (25.7-33.7); MCHC 31.8 g/dl (32.0-35.9); MEAN CELL VOLUME 77.8 fl (80-96); NEUTROPHILS 74.6 % (42.8-82.8); PLATELET COUNT 204 K/MM3 (134-434); WHITE BLOOD COUNT 7.8 K/mm3 (4.0-10.0)
[2016-10-17 07:52] LABS: CALCIUM 7.4 mg/dL (8.5-10.1)
[2016-10-17 07:58] LABS: FERRITIN 46.376 ng/ml (16.4-293.9); TROPONIN I 0.05 ng/ml (0.00-0.05)
--- NOTE | 2016-10-17 08:56 | PN ---
Progress Note, Physician - Current Medication List Current Medications: Active Medications Acetaminophen (Tylenol -) 650 mg PO Q4H PRN PRN Reason: FEVER OR PAIN Last Admin: 10/16/16 14:15 Dose: 650 mg Albuterol Sulfate (Ventolin 0.083% Nebulizer Soln -) 1 amp NEB Q6HPO [facility] Last Admin: 10/17/16 06:00 Dose: 1 amp Aspirin (Asa -) 81 mg PO DAILY [facility] Last Admin: 10/16/16 10:53 Dose: 81 mg Atorvastatin Calcium (Lipitor -) 20 mg PO HS [facility] Last Admin: 10/16/16 21:29 Dose: 20 mg Carvedilol (Coreg -) 12.5 mg PO BID [facility] Last Admin: 10/16/16 21:29 Dose: 12.5 mg Clopidogrel Bisulfate (Plavix -) 75 mg PO DAILY [facility] Last Admin: 10/16/16 10:53 Dose: 75 mg Docusate Sodium (Colace -) 100 mg PO BID PRN PRN Reason: CONSTIPATION Donepezil HCl (Aricept -) 5 mg PO DAILY [facility] Last Admin: 10/16/16 10:54 Dose: 5 mg Finasteride (Proscar -) 5 mg PO DAILY [facility] Last Admin: 10/16/16 10:54 Dose: 5 mg Furosemide (Lasix Injection -) 40 mg IVPB BID@0600,1400 [facility] Last Admin: 10/17/16 06:06 Dose: 40 mg Gabapentin (Neurontin -) 300 mg PO BID [facility] Last Admin: 10/16/16 21:29 Dose: 300 mg Insulin Aspart (Novolog Vial) 0 units SQ ACHS [facility] PRN Reason: Protocol Last Admin: 10/17/16 06:00 Dose: Not Given Insulin Detemir (Levemir Vial) 15 units SQ BIDAC [facility] Last Admin: 10/17/16 06:00 Dose: Not Given Isosorbide Mononitrate (Imdur -) 30 mg PO DAILY [facility] Last Admin: 10/16/16 10:53 Dose: 30 mg Levetiracetam (Keppra -) 1,000 mg PO BID [facility] Last Admin: 10/16/16 21:29 Dose: 1,000 mg Lisinopril (Prinivil) 5 mg PO DAILY [facility] Last Admin: 10/16/16 10:53 Dose: 5 mg Mirtazapine (Remeron -) 15 mg PO HS [facility] Last Admin: 10/16/16 21:29 Dose: 15 mg Nifedipine (Procardia Xl -) 60 mg PO DAILY [facility] Last Admin: 10/16/16 10:54 Dose: 60 mg Oxycodone HCl (Roxicodone -) 5 mg PO Q6H PRN PRN Reason: PAIN Last Admin: 10/16/16 14:17 Dose: 5 mg Pantoprazole Sodium (Protonix -) 40 mg PO DAILY [facility] Last Admin: 10/16/16 10:53 Dose: 40 mg Sitagliptin Phosphate (Januvia -) 50 mg PO DAILY@0700 [facility] Last Admin: 10/17/16 06:00 Dose: Not Given Tamsulosin HCl (Flomax -) 0.4 mg PO DAILY@0830 [facility] Last Admin: 10/16/16 10:53 Dose: 0.4 mg Warfarin Sodium (Coumadin -) 5 mg PO DAILY@1800 [facility] Last Admin: 10/16/16 17:26 Dose: 5 mg - Objective Vital Signs: Vital Signs Temperature 98.6 F 10/17/16 06:00 Pulse Rate 82 10/17/16 06:00 Respiratory Rate 18 10/17/16 06:00 Blood Pressure 116/57 10/17/16 06:00 O2 Sat by Pulse Oximetry (%) 96 10/16/16 21:00 Labs: CBC, BMP 10/17/16 05:35 10/17/16 05:35 INR, PTT INR 2.08 (0.82-1.09) H 10/16/16 06:15
[2016-10-17] MEDS: DONEPEZIL HCL 5 MG TABLET (FP) PO SCH (10:22)
[2016-10-17] MEDS: ISOSORBIDE MONONITRATE 30 MG TAB.SR.24H (FP) PO SCH (10:23)
[2016-10-17] MEDS: ASPIRIN 81 MG CHEWABLE TABLETS PO SCH (10:23)
[2016-10-17] MEDS: CARVEDILOL 12.5 MG TABLET (FP) PO SCH ×2 (10:23→21:26)
[2016-10-17] MEDS: TAMSULOSIN HCL 0.4 MG CAP.ER.24H (FP) PO SCH (10:26)
[2016-10-17] MEDS: levETIRAcetam 500 MG TABLET (FP) PO SCH ×2 (10:26→21:26)
[2016-10-17] MEDS: FINASTERIDE 5 MG TABLET (FP) PO SCH (10:26)
[2016-10-17] MEDS: GABAPENTIN 300 MG CAPSULE (FP) PO SCH ×2 (10:26→21:26)
[2016-10-17] MEDS: CLOPIDOGREL BISULFATE 75 MG TABLET (FP) PO SCH (10:27)
[2016-10-17] MEDS: NIFEdipine E.R 60 MG TABLET (UD) PO SCH (10:27)
[2016-10-17] MEDS: LISINOPRIL 5 MG TABLET (FP) PO SCH (10:27)
[2016-10-17] MEDS: PANTOPRAZOLE 40 MG TABLET (FP) PO SCH (10:27)
--- NOTE | 2016-10-17 12:26 | PN ---
Progress Note, Physician History of Present Illness: Pt readmitted for sob and LE edema. Seen and examined today in nad. states he is feeling better after treatment in ER overnight. denies any chest pain, palpitations, lightheadedness, dizziness, syncope, near syncope, palpitations. - Current Medication List Current Medications: Active Medications Acetaminophen (Tylenol -) 650 mg PO Q4H PRN PRN Reason: FEVER OR PAIN Last Admin: 10/16/16 14:15 Dose: 650 mg Albuterol Sulfate (Ventolin 0.083% Nebulizer Soln -) 1 amp NEB Q6HPO [facility] [place] Last Admin: 10/17/16 06:00 Dose: 1 amp Aspirin (Asa -) 81 mg PO DAILY [facility] [place] Last Admin: 10/17/16 10:23 Dose: 81 mg Atorvastatin Calcium (Lipitor -) 20 mg PO HS [facility] [place] Last Admin: 10/16/16 21:29 Dose: 20 mg Carvedilol (Coreg -) 12.5 mg PO BID [facility] [place] Last Admin: 10/17/16 10:23 Dose: 12.5 mg Clopidogrel Bisulfate (Plavix -) 75 mg PO DAILY [facility] [place] Last Admin: 10/17/16 10:27 Dose: 75 mg Docusate Sodium (Colace -) 100 mg PO BID PRN PRN Reason: CONSTIPATION Donepezil HCl (Aricept -) 5 mg PO DAILY [facility] [place] Last Admin: 10/17/16 10:22 Dose: 5 mg Finasteride (Proscar -) 5 mg PO DAILY [facility] [place] Last Admin: 10/17/16 10:26 Dose: 5 mg Furosemide (Lasix Injection -) 40 mg IVPB BID@0600,1400 [facility] [place] Last Admin: 10/17/16 06:06 Dose: 40 mg Gabapentin (Neurontin -) 300 mg PO BID [facility] [place] Last Admin: 10/17/16 10:26 Dose: 300 mg Insulin Aspart (Novolog Vial) 0 units SQ ACHS [facility] [place] PRN Reason: Protocol Last Admin: 10/17/16 12:01 Dose: Not Given Insulin Detemir (Levemir Vial) 15 units SQ BIDAC [facility] [place] Last Admin: 10/17/16 06:00 Dose: Not Given Isosorbide Mononitrate (Imdur -) 30 mg PO DAILY [facility] [place] Last Admin: 10/17/16 10:23 Dose: 30 mg Levetiracetam (Keppra -) 1,000 mg PO BID [facility] [place] Last Admin: 10/17/16 10:26 Dose: 1,000 mg Lisinopril (Prinivil) 5 mg PO DAILY [facility] [place] Last Admin: 10/17/16 10:27 Dose: 5 mg Mirtazapine (Remeron -) 15 mg PO HS [facility] [place] Last Admin: 10/16/16 21:29 Dose: 15 mg Nifedipine (Procardia Xl -) 60 mg PO DAILY [facility] [place] Last Admin: 10/17/16 10:27 Dose: 60 mg Oxycodone HCl (Roxicodone -) 5 mg PO Q6H PRN PRN Reason: PAIN Last Admin: 10/16/16 14:17 Dose: 5 mg Pantoprazole Sodium (Protonix -) 40 mg PO DAILY [facility] [place] Last Admin: 10/17/16 10:27 Dose: 40 mg Sitagliptin Phosphate (Januvia -) 50 mg PO DAILY@0700 [facility] [place] Last Admin: 10/17/16 06:00 Dose: Not Given Tamsulosin HCl (Flomax -) 0.4 mg PO DAILY@0830 [facility] [place] Last Admin: 10/17/16 10:26 Dose: 0.4 mg Warfarin Sodium (Coumadin -) 5 mg PO DAILY@1800 [facility] [place] Last Admin: 10/16/16 17:26 Dose: 5 mg - Objective Vital Signs: Vital Signs Temperature 98.5 F 10/17/16 10:00 Pulse Rate 92 H 10/17/16 10:00 Respiratory Rate 22 10/17/16 10:00 Blood Pressure 139/76 10/17/16 10:00 O2 Sat by Pulse Oximetry (%) 98 10/17/16 09:00 Eyes: Yes: WNL, Conjunctiva Clear, EOM Intact HENT: Yes: WNL, Atraumatic, Normocephalic Neck: Yes: WNL, Supple, Trachea Midline Cardiovascular: Yes: WNL, Regular Rate and Rhythm Respiratory: Yes: WNL, Regular, CTA Bilaterally Gastrointestinal: Yes: WNL, Normal Bowel Sounds Genitourinary: Yes: WNL Musculoskeletal: Yes: WNL Extremities: Yes: WNL Edema: No Edema: LLE: 1+, RLE: 1+ Integumentary: Yes: WNL Neurological: Yes: WNL, Alert, Oriented ...Motor Strength: WNL Psychiatric: Yes: WNL Labs: CBC, BMP 10/17/16 05:35 10/17/16 05:35 INR, PTT INR 2.08 (0.82-1.09) H 10/16/16 06:15 Problem List - Problems (1) Abdominal pain Code(s): R10.9 - UNSPECIFIED ABDOMINAL PAIN Qualifiers: Abdominal location: generalized Qualified Code(s): R10.84 - Generalized abdominal pain (2) Acute on chronic systolic (congestive) heart failure Code(s): I50.23 - ACUTE ON CHRONIC SYSTOLIC (CONGESTIVE) HEART FAILURE (3) Altered mental status Code(s): R41.82 - ALTERED MENTAL STATUS, UNSPECIFIED Qualifiers: Altered mental status type: disorientation Qualified Code(s): R41.0 - Disorientation, unspecified (4) Atrial flutter Code(s): I48.92 - UNSPECIFIED ATRIAL FLUTTER Qualifiers: Atrial flutter type: unspecified Qualified Code(s): I48.92 - Unspecified atrial flutter (5) Atypical chest pain Code(s): R07.89 - OTHER CHEST PAIN (6) COPD (chronic obstructive pulmonary disease) Code(s): J44.9 - CHRONIC OBSTRUCTIVE PULMONARY DISEASE, UNSPECIFIED (7) Chronic systolic CHF (congestive heart failure) Code(s): I50.22 - CHRONIC SYSTOLIC (CONGESTIVE) HEART FAILURE (8) Delirium Code(s): R41.0 - DISORIENTATION, UNSPECIFIED (9) Dementia Code(s): F03.90 - UNSPECIFIED DEMENTIA WITHOUT BEHAVIORAL DISTURBANCE Qualifiers: Dementia behavioral disturbance: without behavioral disturbance (10) Epilepsy Code(s): G40.909 - EPILEPSY, UNSP, NOT INTRACTABLE, WITHOUT STATUS EPILEPTICUS (11) Hematoma Code(s): T14.8 - OTHER INJURY OF UNSPECIFIED BODY REGION (12) Hypokalemia Code(s): E87.6 - HYPOKALEMIA (13) MRSA (methicillin resistant staph aureus) culture positive Code(s): Z22.322 - CARRIER OR SUSPECTED CARRIER OF METHICILLIN RESIS STAPH (14) Near syncope Code(s): R55 - SYNCOPE AND COLLAPSE (15) Pacemaker Code(s): Z95.0 - PRESENCE OF CARDIAC PACEMAKER (16) Paroxysmal atrial fibrillation Code(s): I48.0 - PAROXYSMAL ATRIAL FIBRILLATION (17) Pleural effusion Code(s): J90 - PLEURAL EFFUSION, NOT ELSEWHERE CLASSIFIED (18) Stented coronary artery Code(s): Z95.5 - PRESENCE OF CORONARY ANGIOPLASTY IMPLANT AND GRAFT (19) ACS (acute coronary syndrome) Code(s): I24.9 - ACUTE ISCHEMIC HEART DISEASE, UNSPECIFIED (20) ASHD (arteriosclerotic heart disease) Code(s): I25.10 - ATHSCL HEART DISEASE OF [place] CORONARY ARTERY W/O ANG PCTRS (21) Acute on chronic renal failure Code(s): N17.9 - ACUTE KIDNEY FAILURE, UNSPECIFIED N18.9 - CHRONIC KIDNEY DISEASE, UNSPECIFIED (22) Acute on chronic renal insufficiency Code(s): N28.9 - DISORDER OF KIDNEY AND URETER, UNSPECIFIED N18.9 - CHRONIC KIDNEY DISEASE, UNSPECIFIED (23) Acute respiratory failure Code(s): J96.00 - ACUTE RESPIRATORY FAILURE, UNSP W HYPOXIA OR HYPERCAPNIA (24) Anemia Code(s): D64.9 - ANEMIA, UNSPECIFIED Qualifiers: Anemia type: unspecified type Qualified Code(s): D64.9 - Anemia, unspecified (25) Aspiration pneumonia Code(s): J69.0 - PNEUMONITIS DUE TO INHALATION OF FOOD AND VOMIT Qualifiers: Aspiration pneumonia type: unspecified Laterality: bilateral Lung location: unspecified part of lung Qualified Code(s): J69.0 - Pneumonitis due to inhalation of food and vomit (26) Bacteremia Code(s): R78.81 - BACTEREMIA (27) Bronchitis Code(s): J40 - BRONCHITIS, NOT SPECIFIED ACUTE OR CHRONIC (28) CHF (congestive heart failure) Code(s): I50.9 - HEART FAILURE, UNSPECIFIED Qualifiers: Congestive heart failure type: systolic Congestive heart failure chronicity: acute on chronic Qualified Code(s): I50.23 - Acute on chronic systolic (congestive) heart failure (29) CHF exacerbation Code(s): I50.9 - HEART FAILURE, UNSPECIFIED Qualifiers: Congestive heart failure type: systolic Qualified Code(s): I50.23 - Acute on chronic systolic (congestive) heart failure (30) CKD (chronic kidney disease) Code(s): N18.9 - CHRONIC KIDNEY DISEASE, UNSPECIFIED (31) CVA (cerebral infarction) Code(s): I63.9 - CEREBRAL INFARCTION, UNSPECIFIED Qualifiers: Cerebral infarction mechanism: unspecified mechanism Qualified Code(s) : I63.9 - Cerebral infarction, unspecified (32) CVA (cerebral vascular accident) Code(s): I63.9 - CEREBRAL INFARCTION, UNSPECIFIED Qualifiers: Precerebral and cerebral artery: unspecified precerebral artery (33) Changes in consciousness Code(s): R40.4 - TRANSIENT ALTERATION OF AWARENESS (34) Chest pain Code(s): R07.9 - CHEST PAIN, UNSPECIFIED Qualifiers: Chest pain type: precordial chest pain (35) Chronic diastolic CHF (congestive heart failure) Code(s): I50.32 - CHRONIC DIASTOLIC (CONGESTIVE) HEART FAILURE (36) DVT prophylaxis Code(s): [id number] - (37) Diabetes mellitus Code(s): E11.9 - TYPE 2 DIABETES MELLITUS WITHOUT COMPLICATIONS Qualifiers: Diabetes mellitus type: type 1 Diabetes mellitus complication status: with hyperglycemia Qualified Code(s): E10.65 - Type 1 diabetes mellitus with hyperglycemia (38) Diastolic CHF Code(s): I50.30 - UNSPECIFIED DIASTOLIC (CONGESTIVE) HEART FAILURE (39) Elevated INR Code(s): R79.1 - ABNORMAL COAGULATION PROFILE (40) Flank pain Code(s): R10.9 - UNSPECIFIED ABDOMINAL PAIN (41) GERD (gastroesophageal reflux disease) Code(s): K21.9 - GASTRO-ESOPHAGEAL REFLUX DISEASE WITHOUT ESOPHAGITIS (42) HLD (hyperlipidemia) Code(s): E78.5 - HYPERLIPIDEMIA, UNSPECIFIED (43) HTN (hypertension) Code(s): I10 - ESSENTIAL (PRIMARY) HYPERTENSION Qualifiers: Hypertension type: essential hypertension Qualified Code(s): I10 - Essential (primary) hypertension (44) Hypotension Code(s): I95.9 - HYPOTENSION, UNSPECIFIED (45) Hypoxia Code(s): R09.02 - HYPOXEMIA (46) NSTEMI (non-ST elevated myocardial infarction) Code(s): I21.4 - NON-ST ELEVATION (NSTEMI) MYOCARDIAL INFARCTION (47) Pneumonia Code(s): J18.9 - PNEUMONIA, UNSPECIFIED ORGANISM (48) Prolapsed internal hemorrhoids, grade 3 Code(s): K64.2 - THIRD DEGREE HEMORRHOIDS (49) Sciatica Code(s): M54.30 - SCIATICA, UNSPECIFIED SIDE (50) Seizure Code(s): R56.9 - UNSPECIFIED CONVULSIONS (51) Seizure disorder Code(s): G40.909 - EPILEPSY, UNSP, NOT INTRACTABLE, WITHOUT STATUS EPILEPTICUS (52) Sepsis Code(s): A41.9 - SEPSIS, UNSPECIFIED ORGANISM (53) Shoulder pain, left Code(s): M25.512 - PAIN IN LEFT SHOULDER Qualifiers: Chronicity: acute Qualified Code(s): M25.512 - Pain in left shoulder (54) Slurred speech Code(s): R47.81 - SLURRED SPEECH (55) Syncope Code(s): R55 - SYNCOPE AND COLLAPSE (56) Trapezius muscle strain Code(s): S46.819A - STRAIN OF MUSC/FASC/TEND AT SHLDR/UP ARM, UNSP ARM, INIT (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 Code(s): E11.610 - TYPE 2 DIABETES MELLITUS W DIABETIC NEUROPATHIC ARTHROPATHY Qualifiers: Diabetes mellitus residential insulin use: with residential use Qualified Code(s): E11.618 - Type 2 diabetes mellitus with other diabetic arthropathy; Z79.4 - custodial (current) use of insulin Assessment/Plan Improving with diuresis, but still volume overloaded Cont IV Lasix as ordered Monitor strict I/Os and daily weights monitor bun/creat monitor and replete electrolytes as needed Troponin was very mildly elevated and did not trend up with normal CK level in setting of CHF and WILMAN, unlikely ACS Pt was moved to tele yesterday due to this slight troponin elevation Pt was planned for an outpatient MUGA to evaluate LVEF, will f/up with Dr. Higgins if this was completed On coumadin for paf for goal INR 2-3
--- NOTE | 2016-10-17 13:50 | DS ---
Physical Examination Vital Signs: Vital Signs Temperature 98.5 F 10/17/16 10:00 Pulse Rate 92 H 10/17/16 10:00 Respiratory Rate 22 10/17/16 10:00 Blood Pressure 139/76 10/17/16 10:00 O2 Sat by Pulse Oximetry (%) 96 10/17/16 09:42 Findings/Remarks: SEE PROGRESS NOTE Labs: CBC, BMP 10/17/16 05:35 10/17/16 05:35 Discharge Summary Reason For Visit: CONGESTIVE HEART FAILURE Current Active Problems Abdominal pain (Acute) Acute on chronic systolic (congestive) heart failure (Acute) Altered mental status (Acute) Atrial flutter (Acute) Atypical chest pain (Acute) COPD (chronic obstructive pulmonary disease) (Acute) Chronic systolic CHF (congestive heart failure) (Acute) Delirium (Acute) Dementia (Acute) Epilepsy (Acute) Hematoma (Acute) Hypokalemia (Acute) MRSA (methicillin resistant staph aureus) culture positive (Acute) Near syncope (Acute) Pacemaker (Acute) Paroxysmal atrial fibrillation (Acute) Pleural effusion (Acute) Stented coronary artery (Acute) Procedures: Principal: CXR Hospital Course: ADMITTED FOR ACUTE ON CHRONIC HEART FAILURE. WILL ADMIT TO CARDIOPULM REHAB TO AVOID CONTINUIUS ER ADMISSIONS AND BETTER MANGE HIS HEART FAILURE Condition: Fair - Instructions Diet, Activity, Other Instructions: LOW SODIUM/ADA Referrals: Seth Wagner MD [Primary Care Provider] - Disposition: HALFWAY FACILITY - Home Medications Comprehensive Discharge Medication List: Ambulatory Orders Atorvastatin Ca [Lipitor] 20 mg PO HS 09/30/16 Isosorbide Mononitrate [Imdur -] 30 mg PO DAILY 09/30/16 Aspirin [ASA -] 81 mg PO DAILY #0 10/02/16 Carvedilol 12.5 mg PO DAILY #0 10/02/16 Clopidogrel Bisulfate [Clopidogrel] 75 mg PO DAILY #0 10/02/16 Donepezil HCl [Aricept -] 5 mg PO DAILY #0 10/02/16 Ergocalciferol [Drisdol -] 50,000 unit PO Q7D@1000 #0 10/02/16 Finasteride 5 mg PO DAILY #0 10/02/16 Gabapentin 300 mg PO BID #0 10/02/16 Levetiracetam 1,000 mg PO BID #0 10/02/16 Mirtazapine 15 mg PO HS #0 10/02/16 Nifedipine [Procardia Xl] 60 mg PO DAILY #0 10/02/16 Sitagliptin Phosphate [Januvia] 50 mg PO DAILY #0 10/02/16 Tamsulosin HCl 0.4 mg PO DAILY #0 10/02/16 Warfarin Na [Coumadin -] 5 mg PO DAILY #0 10/02/16 Lisinopril [Prinivil] 5 mg PO DAILY #30 tablet 10/10/16 Acetaminophen [Tylenol .Regular Strength -] 650 mg PO Q4H PRN #0 tablet Albuterol 0.083% Nebulizer Bertha [Ventolin 0.083% Nebulizer Soln -] 1 amp NEB Q6HPO amp 10/17/16 Docusate Sodium [Colace -] 100 mg PO BID PRN #0 10/17/16 Furosemide [Lasix -] 40 mg PO BID@0600,1400 tablet 10/17/16 Insulin (Levemir) [Levemir Vial] 15 units SQ BIDAC ml 10/17/16 Insulin (Novolog) [Novolog -] 0 units SQ ACHS units 10/17/16 Pantoprazole Sodium [Protonix -] 40 mg PO DAILY 10/17/16
[2016-10-17] MEDS: FUROSEMIDE 40 MG TABLET (FP) PO SCH (13:57)
[2016-10-17] MEDS: WARFARIN NA 5 MG TABLET (UD) PO SCH (17:21)
[2016-10-17] MEDS ORDERED: INSULIN (NOVOLOG) ASPART 100 UNITS/ML 10ML VIAL ONE (17:23)
[2016-10-17] MEDS: ATORVASTATIN CA 20 MG TABLET (FP) PO SCH (21:26)
[2016-10-17] MEDS: MIRTAZAPINE 15 MG TABLET (FP) PO SCH (21:26)
[2016-10-18 06:06] LABS: SERUM IRON 25 ug/dL (38-169); TOTAL IRON BINDING CAPACITY 249 ug/dL (250-450); UIBC 224 ug/dL (111-343)
[2016-10-18] MEDS ORDERED: INSULIN (NOVOLOG) ASPART 100 UNITS/ML 10ML VIAL ONE (06:12)
[2016-10-18] MEDS: oxyCODONE HCL 5 MG TABLET PO PRN (06:27)
[2016-10-18] MEDS: INSULIN (NOVOLOG) ASPART 100 UNITS/ML 10ML VIAL SQ SCH (06:28)
[2016-10-18] MEDS: INSULIN DETEMIR 100 UNITS/ML MDV SQ SCH (06:28)
[2016-10-18] MEDS: sitaGLIPtin PHOSPHATE 50 MG TABLET PO SCH (06:28)
[2016-10-18] MEDS: FUROSEMIDE 40 MG TABLET (FP) PO SCH (06:28)
[2016-10-18] MEDS: ALBUTEROL SO4 0.083% IH SOL 2.5 MG/3 ML VIAL.NEB. NEB SCH ×2 (06:57→11:02)
[2016-10-18 07:04] LABS: ALBUMIN 2.3 g/dl (3.4-5.0); BASOPHIL 0.4 % (0-2.0); CALCIUM 7.6 mg/dL (8.5-10.1); CREATININE 1.9 mg/dL (0.7-1.3); EOSINOPHIL 4.2 % (0-4.5); MCHC 32.1 g/dl (32.0-35.9); MEAN CELL VOLUME 77.9 fl (80-96); MEAN PLT VOLUME 8.4 fl (7.5-11.1); NEUTROPHILS 72.7 % (42.8-82.8); PLATELET COUNT 213 K/MM3 (134-434); RDW 16.9 % (11.9-15.9); WHITE BLOOD COUNT 6.6 K/mm3 (4.0-10.0)
[2016-10-18 07:06] LABS: BILIRUBIN,TOTAL 0.2 mg/dL (0.2-1.0); TOT PROT 5.7 g/dl (6.4-8.2)
--- NOTE | 2016-10-18 09:02 | PN ---
Progress Note, Physician Chief Complaint: Pt A&Ox3; no chest pain, dizziness, or dyspnea. History of Present Illness: he patient is a 75 year old male with past medical history of hypertension, hyperlipidemia, diabetes, dementia, GERD, CHF, CKD, anemia, IA (1992), CVA, epilepsy and MRSA who arrives to the ED from home via EMS for shortness of breath that began this evening. As per the , the patient was lying down at home when his symptoms began. She states that the patient was found to have water in his lungs as per EMS. The patient was seen in the ED on 10/07/16 for the same symptoms in which he was admitted for CHF exacerbation and was discharged on 10/10. The patient denies any recent illness, fever, chills, nausea, vomiting, diarrhea, chest pain, or urinary symptoms. PCP: Seth Wagner - Current Medication List Current Medications: Active Medications Acetaminophen (Tylenol -) 650 mg PO Q4H PRN PRN Reason: FEVER OR PAIN Last Admin: 10/16/16 14:15 Dose: 650 mg Albuterol Sulfate (Ventolin 0.083% Nebulizer Soln -) 1 amp NEB Q6HPO [facility] Last Admin: 10/18/16 06:57 Dose: 1 amp Aspirin (Asa -) 81 mg PO DAILY [facility] Last Admin: 10/17/16 10:23 Dose: 81 mg Atorvastatin Calcium (Lipitor -) 20 mg PO HS [facility] Last Admin: 10/17/16 21:26 Dose: 20 mg Carvedilol (Coreg -) 12.5 mg PO BID [facility] Last Admin: 10/17/16 21:26 Dose: 12.5 mg Clopidogrel Bisulfate (Plavix -) 75 mg PO DAILY [facility] Last Admin: 10/17/16 10:27 Dose: 75 mg Docusate Sodium (Colace -) 100 mg PO BID PRN PRN Reason: CONSTIPATION Donepezil HCl (Aricept -) 5 mg PO DAILY [facility] Last Admin: 10/17/16 10:22 Dose: 5 mg Finasteride (Proscar -) 5 mg PO DAILY [facility] Last Admin: 10/17/16 10:26 Dose: 5 mg Furosemide (Lasix -) 40 mg PO BID@0600,1400 [facility] Last Admin: 10/18/16 06:28 Dose: 40 mg Gabapentin (Neurontin -) 300 mg PO BID [facility] Last Admin: 10/17/16 21:26 Dose: 300 mg Insulin Aspart (Novolog Vial) 0 units SQ ACHS [facility] PRN Reason: Protocol Last Admin: 10/18/16 06:28 Dose: 2 units Insulin Detemir (Levemir Vial) 15 units SQ BIDAC [facility] Last Admin: 10/18/16 06:28 Dose: 15 units Isosorbide Mononitrate (Imdur -) 30 mg PO DAILY [facility] Last Admin: 10/17/16 10:23 Dose: 30 mg Levetiracetam (Keppra -) 1,000 mg PO BID [facility] Last Admin: 10/17/16 21:26 Dose: 1,000 mg Lisinopril (Prinivil) 5 mg PO DAILY [facility] Last Admin: 10/17/16 10:27 Dose: 5 mg Mirtazapine (Remeron -) 15 mg PO HS [facility] Last Admin: 10/17/16 21:26 Dose: 15 mg Nifedipine (Procardia Xl -) 60 mg PO DAILY [facility] Last Admin: 10/17/16 10:27 Dose: 60 mg Oxycodone HCl (Roxicodone -) 5 mg PO Q6H PRN PRN Reason: PAIN Last Admin: 10/18/16 06:27 Dose: 5 mg Pantoprazole Sodium (Protonix -) 40 mg PO DAILY [facility] Last Admin: 10/17/16 10:27 Dose: 40 mg Sitagliptin Phosphate (Januvia -) 50 mg PO DAILY@0700 [facility] Last Admin: 10/18/16 06:28 Dose: 50 mg Tamsulosin HCl (Flomax -) 0.4 mg PO DAILY@0830 [facility] Last Admin: 10/17/16 10:26 Dose: 0.4 mg Warfarin Sodium (Coumadin -) 5 mg PO DAILY@1800 [facility] Last Admin: 10/17/16 17:21 Dose: 5 mg - Objective Vital Signs: Vital Signs Temperature 97.9 F 10/18/16 05:00 Pulse Rate 63 10/18/16 05:00 Respiratory Rate 20 10/18/16 05:00 Blood Pressure 124/59 10/18/16 05:00 O2 Sat by Pulse Oximetry (%) 95 10/17/16 20:49 Constitutional: Yes: No Distress Eyes: Yes: WNL HENT: Yes: WNL Neck: Yes: WNL Cardiovascular: Yes: Pulse Irregular Respiratory: Yes: Regular Gastrointestinal: Yes: Soft ...Rectal Exam: Yes: Deferred Genitourinary: No: Anuria Breast(s): Yes: WNL Musculoskeletal: Yes: Muscle Weakness Extremities: Yes: Cool, Other (weak right arm, with decreased ROM) Edema: No Peripheral Pulses WNL: No Peripheral Pulses: Left Doralis Pedis: 1+, Right Dorsalis Pedis: 1+ Integumentary: Yes: WNL Neurological: Yes: Alert, Oriented, Unsteady Gait, Weakness Psychiatric: Yes: Alert, Oriented Labs: CBC, BMP 10/18/16 05:35 10/18/16 05:35 INR, PTT INR 2.08 (0.82-1.09) H 10/16/16 06:15 Problem List - Problems (1) Atrial flutter Assessment/Plan: On Coreg and warfarin. Code(s): I48.92 - UNSPECIFIED ATRIAL FLUTTER Qualifiers: Atrial flutter type: unspecified Qualified Code(s): I48.92 - Unspecified atrial flutter (2) Chronic systolic CHF (congestive heart failure) Assessment/Plan: continue present medications F/u MUGA regarding LVEF (differing results regarding moderate to severely reduced on recent ECHOS). Pt presently has VVI PPM, not ICD. Code(s): I50.22 - CHRONIC SYSTOLIC (CONGESTIVE) HEART FAILURE (3) Pacemaker Code(s): Z95.0 - PRESENCE OF CARDIAC PACEMAKER (4) Stented coronary artery Code(s): Z95.5 - PRESENCE OF CORONARY ANGIOPLASTY IMPLANT AND GRAFT (5) Diabetes mellitus Assessment/Plan: I would recommend starting emplagoflozin for DM and potential reduction in cardiac events. Code(s): E11.9 - TYPE 2 DIABETES MELLITUS WITHOUT COMPLICATIONS Qualifiers: Diabetes mellitus type: type 1 Diabetes mellitus complication status: with hyperglycemia Qualified Code(s): E10.65 - Type 1 diabetes mellitus with hyperglycemia (6) HLD (hyperlipidemia) Code(s): E78.5 - HYPERLIPIDEMIA, UNSPECIFIED (7) HTN (hypertension) Code(s): I10 - ESSENTIAL (PRIMARY) HYPERTENSION Qualifiers: Hypertension type: essential hypertension Qualified Code(s): I10 - Essential (primary) hypertension
[2016-10-18] MEDS: PANTOPRAZOLE 40 MG TABLET (FP) PO SCH (09:08)
[2016-10-18] MEDS: NIFEdipine E.R 60 MG TABLET (UD) PO SCH (09:08)
[2016-10-18] MEDS: DONEPEZIL HCL 5 MG TABLET (FP) PO SCH (09:08)
[2016-10-18] MEDS: TAMSULOSIN HCL 0.4 MG CAP.ER.24H (FP) PO SCH (09:10)
[2016-10-18] MEDS: levETIRAcetam 500 MG TABLET (FP) PO SCH (09:11)
[2016-10-18] MEDS: FINASTERIDE 5 MG TABLET (FP) PO SCH (09:12)
[2016-10-18] MEDS: LISINOPRIL 5 MG TABLET (FP) PO SCH (09:12)
[2016-10-18] MEDS: CARVEDILOL 12.5 MG TABLET (FP) PO SCH (09:12)
[2016-10-18] MEDS: ASPIRIN 81 MG CHEWABLE TABLETS PO SCH (09:12)
[2016-10-18] MEDS: CLOPIDOGREL BISULFATE 75 MG TABLET (FP) PO SCH (09:12)
[2016-10-18] MEDS: GABAPENTIN 300 MG CAPSULE (FP) PO SCH (09:13)
[2016-10-18] MEDS: ISOSORBIDE MONONITRATE 30 MG TAB.SR.24H (FP) PO SCH (09:13)
[2016-10-18 09:48] VITALS: BP 118/61; PULSE 68; TEMP 98.2
--- NOTE | 2016-10-18 17:21 | EKG ---
Test Reason : Blood Pressure : / mmHG Vent. Rate : 080 BPM Atrial Rate : 079 BPM P-R Int : 000 ms QRS Dur : 136 ms QT Int : 388 ms P-R-T Axes : 000 -48 -01 degrees QTc Int : 447 ms ATRIAL TACHYCARDIA VS. SLOW ATRIAL FLUTTER RIGHT BUNDLE BRANCH BLOCK LEFT ANTERIOR FASCICULAR BLOCK BIFASCICULAR BLOCK INFERIOR INFARCT (CITED ON OR BEFORE 30-SEP-2016) ANTEROSEPTAL INFARCT (CITED ON OR BEFORE 30-SEP-2016) ABNORMAL ECG WHEN COMPARED WITH ECG OF 07-OCT-2016 02:02, POSSIBLE RHYTHM CHANGE CLINICAL CORRELATION IS RECOMMENDED Confirmed by MURPHY ZELAYA MD ([id number]) on 10/18/2016 5:20:42 PM Referred By: Confirmed By:MURPHY ZELAYA MD
== END 2016-10-18 11:42 | DRG 291 ==
LOC: JER 01:40 → JERBED 06:48 → J5S 08:59 → J4S 21:05
PROVIDERS: ADMIT Family Medicine; ATTEND Family Medicine
DX: I13.0 Hypertensive heart and chronic kidney disease with heart failure and stage 1 through stage 4 chronic kidney disease, or unspecified chronic kidney disease (principal); I50.23 Acute on chronic systolic (congestive) heart failure; I48.92 Unspecified atrial flutter; E78.5 Hyperlipidemia, unspecified; F03.90 Unspecified dementia, unspecified severity, without behavioral disturbance, psychotic disturbance, mood disturbance, and anxiety; K21.9 Gastro-esophageal reflux disease without esophagitis; D64.9 Anemia, unspecified; I25.2 Old myocardial infarction; G40.909 Epilepsy, unspecified, not intractable, without status epilepticus; Z79.4 Long term (current) use of insulin; I25.10 Atherosclerotic heart disease of native coronary artery without angina pectoris; I48.0 Paroxysmal atrial fibrillation; E11.22 Type 2 diabetes mellitus with diabetic chronic kidney disease; N18.9 Chronic kidney disease, unspecified; J44.9 Chronic obstructive pulmonary disease, unspecified; Z95.0 Presence of cardiac pacemaker; M54.30 Sciatica, unspecified side; E11.610 Type 2 diabetes mellitus with diabetic neuropathic arthropathy; Z86.73 Personal history of transient ischemic attack (TIA), and cerebral infarction without residual deficits; Z95.5 Presence of coronary angioplasty implant and graft
CPT/HCPCS: 36415; 71010-TC; 80048; 80053; 81003; 81015; 82550; 82728; 83540; 83550; 83605; 83690; 83735; 83880; 84100; 84484; 85025; 85610; 86850; 86900; 86901; 87040; 87086; 93005; 93010; 94640; 94660; 97116-GP; 97161-GP; 99285-25

== ENCOUNTER 2016-11-01 12:32 | Inpatient (IN) | payer OTHER ==
--- NOTE | 2016-11-01 12:58 | PDOC ---
History of Present Illness - General Chief Complaint: Respiratory Stated Complaint: CHEST PAIN Time Seen by Provider: 11/01/16 12:52 History Source: Patient Exam Limitations: No Limitations - History of Present Illness Initial Comments: 11/01/16 13:09 75y F hx of htn, hl, dm, dementia, chf, ckd, anemia, [place] s/p stents, cva, sent from rehab for sob - pt states he has had incrased HOANG.cough overnight, and this mornin gafter breakfast, he developed mid chest pain radiating up to his neck. The patient endorses sob and some coughing last night - denies any fever/ chills, n/v, abd pain, diarrhea, productive cough, hemoptysis, diarrhe, melena. Pt was given ntg by EMS with resolution of his chest pain. Pt has had several recent admissions for chf exacerbations the past month. On arrival the pt was tachypneic, hypoxic to 80%. PCP: Seth Diaz Past History - Past Medical History Allergies/Adverse Reactions: Allergies Allergy/AdvReac Type Severity Reaction Status Date / Time No Known Allergies Allergy Verified 11/01/16 12:52 Home Medications: Ambulatory Orders Acetaminophen [Tylenol] 650 mg PO Q4H PRN 11/01/16 Albuterol 0.083% Nebulizer Bertha [Ventolin 0.083%] 1 neb NEB Q6H PRN 11/01/16 Aspirin [ASA -] 81 mg PO DAILY 11/01/16 Atorvastatin Ca [Lipitor] 10 mg PO HS 11/01/16 Carvedilol 12.5 mg PO DAILY 11/01/16 Clopidogrel Bisulfate [Plavix -] 75 mg PO DAILY 11/01/16 Docusate Sodium 200 mg PO HS 11/01/16 Donepezil HCl [Aricept -] 5 mg PO DAILY 11/01/16 Ergocalciferol [Drisdol -] 50,000 unit PO Q7D@1000 11/01/16 Ferrous Sulfate 325 mg PO DAILY 11/01/16 Finasteride 5 mg PO DAILY 11/01/16 Furosemide [Lasix -] 40 mg PO DAILY 11/01/16 Gabapentin 300 mg PO BID 11/01/16 Guaifenesin Dm [Robitussin Dm] 10 ml PO Q6H 11/01/16 Insulin (Levemir) [Levemir Flexpen -] 15 units SQ BID 11/01/16 Isosorbide Mononitrate [Isosorbide Mononitrate ER] 30 mg PO DAILY 11/01/16 Levetiracetam 1,000 mg PO BID 11/01/16 Levofloxacin [Levaquin] 500 mg PO DAILY 11/01/16 Lidocaine [Aspercreme] 1 each TP DAILY 11/01/16 Lisinopril 5 mg PO DAILY 11/01/16 Mirtazapine 15 mg PO HS 11/01/16 Nifedipine ER [Procardia Xl -] 60 mg PO DAILY 11/01/16 Pantoprazole Sodium 40 mg PO DAILY 11/01/16 Potassium Chloride 10 meq PO DAILY 11/01/16 Sitagliptin Phosphate [Januvia] 50 mg PO DAILY 11/01/16 Tamsulosin HCl [Flomax] 0.4 mg PO DAILY 11/01/16 Tolnaftate [Antifungal Cream] 15 gm TP BID 11/01/16 Tuberculin,Purif.prot.deriv. [Aplisol] 5 tub IM ONCE 11/01/16 Anemia: Yes Asthma: No Cancer: No Cardiac Disorders: Yes (mi 1992) 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)) COPD: No CHF: Yes Dementia: Yes Diabetes: Yes GI Disorders: Yes (Gastritis) Disorders: No HTN: Yes Hypercholesterolemia: Yes Liver Disease: No Suicide Attempt (Hx): No Seizures: Yes (epilepsy) Thyroid Disease: No - Surgical History Abdominal Surgery: Yes Appendectomy: No Cardiac Surgery: No Cholecystectomy: Yes Lung Surgery: No Neurologic Surgery: No Orthopedic Surgery: Yes (R HAND) - Immunization History Immunization Up to Date: No - Psycho/Social/Smoking Cessation Hx Anxiety: No Suicidal Ideation: No Smoking History: Never smoked Have you smoked in the past 12 months: No Number of Cigarettes Smoked Daily: 0 Hx Alcohol Use: No Drug/Substance Use Hx: No Substance Use Type: None Hx Substance Use Treatment: No Review of Systems - Review of Systems Able to Perform ROS?: Yes Comments:: 11/01/16 13:37 Constitutional - no reported Fever, Chills, weakness, HEENT: no reported vision changes, sore throat Respiratory: +cough, sob, no reported hemoptysis Cardiac: +chest pain, no reported palpitations, light headedness, leg swelling Abd/GI: no reported abd pain, nausea, vomiting, blood per rectum, melena, diarrhea : no reported dysuria, frequency, discharge Musculskelatal - no reported back pain, joint swelling skin - no reported bruising, erythema, rash neurological: no reported headache, numbness, focal weakness, tingling, ataxia, weakness hematologic: no reported anemia, easy bruising, easy bleeding *Physical Exam - Vital Signs Last Vital Signs Temp Pulse Resp BP Pulse Ox 99.7 F H 88 24 133/79 80 L 11/01/16 12:53 11/01/16 12:53 11/01/16 12:53 11/01/16 12:53 11/01/16 12:53 - Physical Exam Comments: 11/01/16 13:39 GENERAL: The patient is awake, alert, and fully oriented, tachypneic HEAD: Normocephalic, atraumatic. EYES: extraocular movements intact, sclera anicteric, conjunctiva clear. ENT: Normal voice, Moist mucous membranes. NECK: Normal range of motion, supple LUNGS: deminished breath sounds b/l, HEART: Regular rate and rhythm, normal S1 and S2 without murmur, rub or gallop. ABDOMEN: Soft, nontender, normoactive bowel sounds. No guarding, no rebound. . No CVA tenderness EXTREMITIES: 2/5 wekeaness in RUE and RLE, NEUROLOGICAL: No facial assymetry, Normal speech, PSYCH: Normal mood, normal affect. SKIN: Warm, Dry, normal turgor, Heart Score/ECG Review - ECG Impressions Comment:: 11/01/16 13:40 Twelve-lead EKG was performed and reviewed by me. ventricular paced rhythm ED Treatment Course - LABORATORY CBC & Chemistry Diagram: 11/01/16 13:09 11/01/16 13:09 Medical Decision Making - Medical Decision Making 11/01/16 13:41 suspect chf exacerbtion consider acs pt started on bipap upon arrival with improvement of his saturation and respiratory status will obtain labs, cxr, will continue bipap anticipate admission 11/01/16 15:31 lkabs reviewed +bnp cxr c/w congestion pt doing well on bipap, given lasix 40mg pt will be admitted for furether management of chf and respiratrory distress cawa d/w dr. diaz and dr. chung agreed with admission Case discussed in detail with admitting physician including history, physical exam and ancillary studies. Admitting physician has assumed care for the patient, will follow all pending diagnostics and will complete the evaluation and treatment. CRITICAL CARE DOCUMENTATION: I spent ~35 minutes of Critical Care time, excluding separately billable procedures, involving high complexity decision making to assess, manipulate and support vital system function(s) to treat single or multiple vital organ system failure and/or to prevent further life threatening deterioration of the patient' s condition. *DC/Admit/Observation/Transfer Diagnosis at time of Disposition: Acute respiratory disease CHF (congestive heart failure) Qualifiers: Congestive heart failure type: combined Congestive heart failure chronicity: acute on chronic Qualified Code(s): I50.43 - Acute on chronic combined systolic (congestive) and diastolic (congestive) heart failure - Discharge Dispostion Admit: Yes - Referrals
[2016-11-01] MEDS ORDERED: ASPIRIN 81 MG CHEWABLE TABLETS PO ONE (13:06)
[2016-11-01] MEDS ORDERED: ASPIRIN 81 MG CHEWABLE TABLETS ONE (13:12)
[2016-11-01 13:22] LABS: BASOPHIL 0.2 % (0-2.0); EOSINOPHIL 1.5 % (0-4.5); MCH 24.1 pg (25.7-33.7); MCHC 30.5 g/dl (32.0-35.9); MEAN CELL VOLUME 79.1 fl (80-96); MEAN PLT VOLUME 8.3 fl (7.5-11.1); NEUTROPHILS 89.5 % (42.8-82.8); PLATELET COUNT 201 K/MM3 (134-434); RDW 17.6 % (11.9-15.9)
[2016-11-01 13:48] LABS: ALBUMIN 2.7 g/dl (3.4-5.0); CALCIUM 7.8 mg/dL (8.5-10.1); CREATININE 1.8 mg/dL (0.7-1.3); MAGNESIUM 2.1 mg/dL (1.8-2.4)
[2016-11-01 13:52] LABS: BILIRUBIN,TOTAL 0.5 mg/dL (0.2-1.0); TOT PROT 6.6 g/dl (6.4-8.2); TROPONIN I 0.03 ng/ml (0.00-0.05)
[2016-11-01 13:54] LABS: INR 1.19 (0.82-1.09); PROTHROMBIN TIME (PATIENT) 13.1 SEC (9.98-11.88)
[2016-11-01] MEDS ORDERED: ALBUTEROL SO4 2.5/IPRATROPIUM 0.5 INH SOL 3 ML VIAL.NEB. NEB ONE ×2 (14:41→15:28)
[2016-11-01] MEDS ORDERED: FUROSEMIDE 40 MG/4 ML INJECTABLE VIAL IVPUSH ONE (15:07)
--- NOTE | 2016-11-01 17:26 | EKG ---
Test Reason : Blood Pressure : / mmHG Vent. Rate : 063 BPM Atrial Rate : 326 BPM P-R Int : 000 ms QRS Dur : 178 ms QT Int : 478 ms P-R-T Axes : 000 -70 105 degrees QTc Int : 489 ms Ventricular-paced rhythm WITH PREMATURE VENTRICULAR OR ABERRANTLY CONDUCTED COMPLEXES ABNORMAL ECG WHEN COMPARED WITH ECG OF 16-OCT-2016 09:12, ELECTRONIC VENTRICULAR PACEMAKER HAS REPLACED SINUS RHYTHM Confirmed by MURPHY ZELAYA MD ([id number]) on 11/01/2016 5:26:01 PM Referred By: Confirmed By:MURPHY ZELAYA MD
[2016-11-01 17:43] LABS: ARTERIAL BLD GAS O2 SATURATION 89.5 % (90-98.9); ARTERIAL BLOOD GAS BASE EXCESS 6.3 meq/l (-2-2); ARTERIAL BLOOD GAS HCO3 33.1 meq/L (22-26)
[2016-11-01 17:47] LABS: ALLENS TEST POSITIVE; ART PUNCT SITE RIGHT RADIAL; LPM/O2% 60%; MECH. VENT. BIPAP; PT. ON O2? YES; TYPE OF O2 BIPAP; VENT RATE 26; VT/PRESS 18/8
[2016-11-01 17:50] LABS: ARTERIAL BLOOD GAS PO2 60.7 mmHg (70-100); ARTERIAL BLOOD GAS pH 7.32 (7.35-7.45)
[2016-11-01] MEDS ORDERED: FUROSEMIDE 40 MG/4 ML INJECTABLE VIAL ONE (18:14)
[2016-11-01 18:50] VITALS: BMI 30.2
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
[2016-11-01] MEDS: ALBUTEROL SO4 2.5/IPRATROPIUM 0.5 INH SOL 3 ML VIAL.NEB. NEB PRN (22:15)
[2016-11-01] MEDS: FERROUS SO4 325 MG TABLET (FP) PO SCH (23:04)
[2016-11-01] MEDS: levETIRAcetam 500 MG TABLET (FP) PO SCH (23:04)
[2016-11-01] MEDS: ATORVASTATIN CA 10 MG TABLET (FP) PO SCH (23:04)
[2016-11-01] MEDS: CARVEDILOL 12.5 MG TABLET (FP) PO SCH (23:04)
[2016-11-01] MEDS: MIRTAZAPINE 15 MG TABLET (FP) PO SCH (23:05)
[2016-11-01] MEDS: GABAPENTIN 300 MG CAPSULE (FP) PO SCH (23:05)
[2016-11-01] MEDS: INSULIN DETEMIR 100 UNITS/ML MDV SQ SCH (23:07)
[2016-11-01] MEDS: INSULIN SLIDING SCALE (NOVOLOG) 1 VIAL SQ SCH (23:08)
[2016-11-02] MEDS: INSULIN SLIDING SCALE (NOVOLOG) 1 VIAL SQ SCH ×4 (06:35→21:56)
[2016-11-02] MEDS: sitaGLIPtin PHOSPHATE 50 MG TABLET PO SCH (06:36)
[2016-11-02 08:41] LABS: ALBUMIN 2.4 g/dl (3.4-5.0); BILIRUBIN,TOTAL 0.4 mg/dL (0.2-1.0); CALCIUM 7.8 mg/dL (8.5-10.1); CREATININE 1.9 mg/dL (0.7-1.3)
[2016-11-02 08:54] LABS: MCH 24.6 pg (25.7-33.7); MEAN CELL VOLUME 79.2 fl (80-96); PLATELET COUNT 169 K/MM3 (134-434); RDW 17.9 % (11.9-15.9); WHITE BLOOD COUNT 6.2 K/mm3 (4.0-10.0)
[2016-11-02] MEDS ORDERED: FUROSEMIDE 40 MG/4 ML INJECTABLE VIAL IVPB SCH (10:00)
[2016-11-02] MEDS: CARVEDILOL 12.5 MG TABLET (FP) PO SCH ×2 (10:14→21:57)
[2016-11-02] MEDS: TAMSULOSIN HCL 0.4 MG CAP.ER.24H (FP) PO SCH (10:14)
[2016-11-02] MEDS: FERROUS SO4 325 MG TABLET (FP) PO SCH ×2 (10:14→21:57)
[2016-11-02] MEDS: DOCUSATE SODIUM 100 MG CAPSULE (FP) PO SCH (10:14)
[2016-11-02] MEDS: ASPIRIN COATED 81 MG TABLET.EC PO SCH (10:14)
[2016-11-02] MEDS: DONEPEZIL HCL 5 MG TABLET (FP) PO SCH (10:15)
[2016-11-02] MEDS: FINASTERIDE 5 MG TABLET (FP) PO SCH (10:15)
[2016-11-02] MEDS: CLOPIDOGREL BISULFATE 75 MG TABLET (FP) PO SCH (10:15)
[2016-11-02] MEDS: PANTOPRAZOLE 40 MG TABLET (FP) PO SCH (10:15)
[2016-11-02] MEDS: NIFEdipine E.R 60 MG TABLET (UD) PO SCH (10:15)
[2016-11-02] MEDS: ALBUTEROL SO4 2.5/IPRATROPIUM 0.5 INH SOL 3 ML VIAL.NEB. NEB PRN (10:45)
--- NOTE | 2016-11-02 11:29 | PN ---
Progress Note (short form) - Note Progress Note: PULMONARY CONSULTATION DICTATED 11/02/16 IMP ACUTE ON CHRONIC HYPOXEMIC/HYPERCAPNEIC RESPIRATORY FAILURE DECOMPENSATED CHF ASHD S/P IN,S/P STENTS AFIB HTN S/P CVA WITH R HEMIPARESIS SEIZURE DISORDER DM CKD PLAN IV LASIX BIPAP O2 TO MAINTAIN O2 SAT 90% OR GREATER INHALED BRONCHODILATORS MONITOR LYTES,RENAL DAILY WTS F/U CHEST X-RAY DR TORRES Problem List - Problems (1) Acute on chronic systolic and diastolic heart failure, NYHA class 1 Code(s): I50.43 - ACUTE ON CHRONIC COMBINED SYSTOLIC AND DIASTOLIC HRT FAIL (2) Acute respiratory disease Code(s): J06.9 - ACUTE UPPER RESPIRATORY INFECTION, UNSPECIFIED (3) Altered mental status Code(s): R41.82 - ALTERED MENTAL STATUS, UNSPECIFIED Qualifiers: Altered mental status type: disorientation Qualified Code(s): R41.0 - Disorientation, unspecified (4) Atypical chest pain Code(s): R07.89 - OTHER CHEST PAIN (5) CHF (congestive heart failure) Code(s): I50.9 - HEART FAILURE, UNSPECIFIED Qualifiers: Congestive heart failure type: combined Congestive heart failure chronicity: acute on chronic Qualified Code(s): I50.43 - Acute on chronic combined systolic (congestive) and diastolic (congestive) heart failure (6) Dementia Code(s): F03.90 - UNSPECIFIED DEMENTIA WITHOUT BEHAVIORAL DISTURBANCE Qualifiers: Dementia behavioral disturbance: without behavioral disturbance (7) Epilepsy Code(s): G40.909 - EPILEPSY, UNSP, NOT INTRACTABLE, WITHOUT STATUS EPILEPTICUS (8) Stented coronary artery Code(s): Z95.5 - PRESENCE OF CORONARY ANGIOPLASTY IMPLANT AND GRAFT (9) ASHD (arteriosclerotic heart disease) Code(s): I25.10 - ATHSCL HEART DISEASE OF [place] CORONARY ARTERY W/O ANG PCTRS (10) Acute respiratory failure Code(s): J96.00 - ACUTE RESPIRATORY FAILURE, UNSP W HYPOXIA OR HYPERCAPNIA (11) CKD (chronic kidney disease) Code(s): N18.9 - CHRONIC KIDNEY DISEASE, UNSPECIFIED (12) CVA (cerebral vascular accident) Code(s): I63.9 - CEREBRAL INFARCTION, UNSPECIFIED Qualifiers: Precerebral and cerebral artery: unspecified precerebral artery (13) Chest pain Code(s): R07.9 - CHEST PAIN, UNSPECIFIED Qualifiers: Chest pain type: precordial chest pain (14) Diabetes mellitus Code(s): E11.9 - TYPE 2 DIABETES MELLITUS WITHOUT COMPLICATIONS Qualifiers: Diabetes mellitus type: type 1 Diabetes mellitus complication status: with hyperglycemia Qualified Code(s): E10.65 - Type 1 diabetes mellitus with hyperglycemia (15) Difficulty breathing Code(s): R06.89 - OTHER ABNORMALITIES OF BREATHING (16) GERD (gastroesophageal reflux disease) Code(s): K21.9 - GASTRO-ESOPHAGEAL REFLUX DISEASE WITHOUT ESOPHAGITIS (17) HLD (hyperlipidemia) Code(s): E78.5 - HYPERLIPIDEMIA, UNSPECIFIED (18) HTN (hypertension) Code(s): I10 - ESSENTIAL (PRIMARY) HYPERTENSION Qualifiers: Hypertension type: essential hypertension Qualified Code(s): I10 - Essential (primary) hypertension (19) Hypoxia Code(s): R09.02 - HYPOXEMIA (20) Seizure disorder Code(s): G40.909 - EPILEPSY, UNSP, NOT INTRACTABLE, WITHOUT STATUS EPILEPTICUS (21) Acute on chronic respiratory failure with hypoxia and hypercapnia Code(s): J96.21 - ACUTE AND CHRONIC RESPIRATORY FAILURE WITH HYPOXIA J96.22 - ACUTE AND CHRONIC RESPIRATORY FAILURE WITH HYPERCAPNIA
--- NOTE | 2016-11-02 12:21 | PN ---
Progress Note, Physician History of Present Illness: The patient is a 62-year-old man, accompanied by , with a significant past medical history of hypertension, chronic obstructive pulmonary disease ( requiring intubation on 2005) and emphysema who presents to the emergency department via EMS for further evaluation of shortness of breath. HPI limited as patient arrives in severe respiratory distress. As per patient's , his symptoms started approximately 1 month ago with an intermittent productive cough with yellow-green sputum. She states that his symptoms worsened over the the past 3 days, as he became increasingly short of breath. EMS was activated today, and on arrival, the patient was noted to be in the low 90s on a non- rebreather and was found to have diffuse expiratory wheezes in the field, and was in respiratory distress. He was given 10 milligrams of Decadron and received a second Combivent. He was also placed on BiPAP, with noted improvement of his shortness of breath and oxygen saturation of 98%. No fever, chills, sick contacts. History provided by EMS, old records and pts who is with him Daughter and say pt has shown little response over the past 2 hours; prior to that, he was talking. - Current Medication List Current Medications: Active Medications Acetaminophen (Tylenol -) 650 mg PO Q6H PRN PRN Reason: FEVER OR PAIN Albuterol/Ipratropium (Duoneb -) 1 amp NEB Q6H PRN PRN Reason: SHORTNESS OF BREATH Last Admin: 11/02/16 10:45 Dose: 1 amp Aspirin (Ecotrin -) 81 mg PO DAILY [facility] Last Admin: 11/02/16 10:14 Dose: 81 mg Atorvastatin Calcium (Lipitor -) 10 mg PO HS [facility] Last Admin: 11/01/16 23:04 Dose: 10 mg Carvedilol (Coreg -) 12.5 mg PO BID [facility] Last Admin: 11/02/16 10:14 Dose: 12.5 mg Clopidogrel Bisulfate (Plavix -) 75 mg PO DAILY [facility] Last Admin: 11/02/16 10:15 Dose: 75 mg Docusate Sodium (Colace -) 100 mg PO DAILY [facility] Last Admin: 11/02/16 10:14 Dose: 100 mg Donepezil HCl (Aricept -) 5 mg PO DAILY [facility] Last Admin: 11/02/16 10:15 Dose: 5 mg Ergocalciferol (Drisdol -) 50,000 unit PO Q7D@1000 [facility] Ferrous Sulfate (Feosol -) 325 mg PO BID [facility] Last Admin: 11/02/16 10:14 Dose: 325 mg Finasteride (Proscar -) 5 mg PO DAILY [facility] Last Admin: 11/02/16 10:15 Dose: 5 mg Furosemide (Lasix Injection -) 40 mg IVPB DAILY [facility] Last Admin: 11/02/16 10:16 Dose: 40 mg Gabapentin (Neurontin -) 300 mg PO BID [facility] Last Admin: 11/01/16 23:05 Dose: 300 mg Insulin Aspart (Novolog Vial Sliding Scale -) 1 vial SQ [facility] PRN Reason: Protocol Last Admin: 11/02/16 06:35 Dose: 2 units Insulin Detemir (Levemir Vial) 15 units SQ HS [facility] Last Admin: 11/01/16 23:07 Dose: 15 units Isosorbide Mononitrate (Imdur -) 30 mg PO DAILY [facility] Levetiracetam (Keppra -) 1,000 mg PO BID [facility] Last Admin: 11/01/16 23:04 Dose: 1,000 mg Lisinopril (Prinivil) 10 mg PO DAILY [facility] Methyl Salicylate (Girish-Mai -) 1 applic TP BID [facility] Mirtazapine (Remeron -) 15 mg PO HS [facility] Last Admin: 11/01/16 23:05 Dose: 15 mg Nifedipine (Procardia Xl -) 60 mg PO DAILY [facility] Last Admin: 11/02/16 10:15 Dose: 60 mg Pantoprazole Sodium (Protonix -) 40 mg PO DAILY [facility] Last Admin: 11/02/16 10:15 Dose: 40 mg Sitagliptin Phosphate (Januvia -) 50 mg PO DAILY@0700 [facility] Last Admin: 11/02/16 06:36 Dose: 50 mg Tamsulosin HCl (Flomax -) 0.4 mg PO DAILY@0830 [facility] Last Admin: 11/02/16 10:14 Dose: 0.4 mg - Objective Vital Signs: Vital Signs Temperature 98.8 F 11/02/16 05:33 Pulse Rate 86 11/02/16 10:45 Respiratory Rate 20 11/02/16 08:43 Blood Pressure 164/84 11/02/16 08:43 O2 Sat by Pulse Oximetry (%) 99 11/02/16 10:45 Eyes: Yes: WNL, Conjunctiva Clear, EOM Intact HENT: Yes: WNL, Atraumatic, Normocephalic Neck: Yes: WNL, Supple, Trachea Midline Cardiovascular: Yes: WNL, Regular Rate and Rhythm Respiratory: Yes: Rales, Wheezes Gastrointestinal: Yes: WNL, Normal Bowel Sounds Genitourinary: Yes: WNL Musculoskeletal: Yes: WNL Extremities: Yes: WNL Edema: No Integumentary: Yes: WNL Neurological: Yes: Alert, Oriented, Weakness ...Motor Strength: WNL Psychiatric: Yes: WNL Labs: CBC, BMP 11/02/16 05:35 11/02/16 05:35 INR, PTT INR 1.19 (0.82-1.09) H D 11/01/16 13:09 Laboratory Tests 11/01/16 11/01/16 11/01/16 13:09 13:09 13:09 WBC 9.0 D RBC 4.06 Hgb 9.8 L Hct 32.1 L MCV 79.1 L MCHC 30.5 L RDW 17.6 H Plt Count 201 MPV 8.3 Neutrophils % 89.5 H D Lymphocytes % 2.9 L D Monocytes % 5.9 Eosinophils % 1.5 Basophils % 0.2 INR 1.19 H D Puncture Site ABG pH ABG pCO2 at Pt Temp ABG pO2 at Pt Temp ABG HCO3 ABG O2 Sat (Measured) ABG O2 Content ABG Base Excess Zoltan Test O2 Delivery Device Oxygen Flow Rate Vent Mode Vent Rate Mechanical Rate PEEP Pressure Support Vent Sodium 142 Potassium 4.2 Chloride 99 Carbon Dioxide 36 H Anion Gap 7 L BUN 35 H D Creatinine 1.8 H Creat Clearance w eGFR 37.17 POC Glucometer Random Glucose 279 H D Hemoglobin A1c % Lactic Acid Calcium 7.8 L Magnesium 2.1 Total Bilirubin 0.5 D AST 12 L ALT 17 D Alkaline Phosphatase 124 H Creatine Kinase 61 Troponin I 0.03 D B-Natriuretic Peptide 83003.87 H Total Protein 6.6 Albumin 2.7 L Triglycerides Cholesterol Total LDL Cholesterol HDL Cholesterol Blood Type Antibody Screen 11/01/16 11/01/16 11/01/16 13:09 13:30 17:31 WBC RBC Hgb Hct MCV MCHC RDW Plt Count MPV Neutrophils % Lymphocytes % Monocytes % Eosinophils % Basophils % INR Puncture Site Right radial ABG pH 7.32 L ABG pCO2 at Pt Temp 65.7 H* D ABG pO2 at Pt Temp 60.7 L ABG HCO3 33.1 H ABG O2 Sat (Measured) 89.5 L ABG O2 Content 11.1 L ABG Base Excess 6.3 H Zoltan Test Positive O2 Delivery Device Bipap Oxygen Flow Rate 60% Vent Mode S/t Vent Rate 26 Mechanical Rate Bipap PEEP 0.0 Pressure Support Vent 18/8 Sodium Potassium Chloride Carbon Dioxide Anion Gap BUN Creatinine Creat Clearance w eGFR POC Glucometer Random Glucose Hemoglobin A1c % Lactic Acid 1.104 Calcium Magnesium Total Bilirubin AST ALT Alkaline Phosphatase Creatine Kinase Troponin I B-Natriuretic Peptide Total Protein Albumin Triglycerides Cholesterol Total LDL Cholesterol HDL Cholesterol Blood Type O POSITIVE Antibody Screen Negative 11/01/16 11/02/16 11/02/16 23:06 05:27 05:35 WBC 6.2 D RBC 3.77 L Hgb 9.3 L Hct 29.9 L MCV 79.2 L MCHC 31.0 L RDW 17.9 H Plt Count 169 MPV 8.0 Neutrophils % Lymphocytes % Monocytes % Eosinophils % Basophils % INR Puncture Site ABG pH ABG pCO2 at Pt Temp ABG pO2 at Pt Temp ABG HCO3 ABG O2 Sat (Measured) ABG O2 Content ABG Base Excess Zoltan Test O2 Delivery Device Oxygen Flow Rate Vent Mode Vent Rate Mechanical Rate PEEP Pressure Support Vent Sodium Potassium Chloride Carbon Dioxide Anion Gap BUN Creatinine Creat Clearance w eGFR POC Glucometer 201 202 Random Glucose Hemoglobin A1c % Lactic Acid Calcium Magnesium Total Bilirubin AST ALT Alkaline Phosphatase Creatine Kinase Troponin I B-Natriuretic Peptide Total Protein Albumin Triglycerides Cholesterol Total LDL Cholesterol HDL Cholesterol Blood Type Antibody Screen 11/02/16 11/02/16 05:35 05:35 WBC RBC Hgb Hct MCV MCHC RDW Plt Count MPV Neutrophils % Lymphocytes % Monocytes % Eosinophils % Basophils % INR Puncture Site ABG pH ABG pCO2 at Pt Temp ABG pO2 at Pt Temp ABG HCO3 ABG O2 Sat (Measured) ABG O2 Content ABG Base Excess Zoltan Test O2 Delivery Device Oxygen Flow Rate Vent Mode Vent Rate Mechanical Rate PEEP Pressure Support Vent Sodium 146 H Potassium 3.9 Chloride 105 Carbon Dioxide 33 H Anion Gap 8 BUN 36 H Creatinine 1.9 H Creat Clearance w eGFR 34.92 POC Glucometer Random Glucose 174 H D Hemoglobin A1c % 7.4 H D Lactic Acid Calcium 7.8 L Magnesium Total Bilirubin 0.4 AST 8 L D ALT 13 D Alkaline Phosphatase 111 Creatine Kinase Troponin I B-Natriuretic Peptide Total Protein 6.0 L Albumin 2.4 L Triglycerides 92 Cholesterol 105 Total LDL Cholesterol 58 HDL Cholesterol 33 L Blood Type Antibody Screen Assessment/Plan - Problems (1) Acute respiratory disease Assessment/Plan: Bipap, bronchodilators, steroids, antibiotics per pulmonary and ID. Code(s): J06.9 - ACUTE UPPER RESPIRATORY INFECTION, UNSPECIFIED (2) Altered mental status Assessment/Plan: ?secondary to hypoxemia and CHF; r/o sepsis. Code(s): R41.82 - ALTERED MENTAL STATUS, UNSPECIFIED Qualifiers: Altered mental status type: disorientation Qualified Code(s): R41.0 - Disorientation, unspecified (3) Atrial flutter Code(s): I48.92 - UNSPECIFIED ATRIAL FLUTTER Qualifiers: Atrial flutter type: unspecified Qualified Code(s): I48.92 - Unspecified atrial flutter (4) Dementia Code(s): F03.90 - UNSPECIFIED DEMENTIA WITHOUT BEHAVIORAL DISTURBANCE Qualifiers: Dementia behavioral disturbance: without behavioral disturbance (5) Stented coronary artery Code(s): Z95.5 - PRESENCE OF CORONARY ANGIOPLASTY IMPLANT AND GRAFT (6) CVA (cerebral infarction) Code(s): I63.9 - CEREBRAL INFARCTION, UNSPECIFIED Qualifiers: Cerebral infarction mechanism: unspecified mechanism Qualified Code(s) : I63.9 - Cerebral infarction, unspecified (7) GERD (gastroesophageal reflux disease) Code(s): K21.9 - GASTRO-ESOPHAGEAL REFLUX DISEASE WITHOUT ESOPHAGITIS (8) HLD (hyperlipidemia) Code(s): E78.5 - HYPERLIPIDEMIA, UNSPECIFIED (9) HTN (hypertension) Code(s): I10 - ESSENTIAL (PRIMARY) HYPERTENSION Qualifiers: Hypertension type: essential hypertension Qualified Code(s): I10 - Essential (primary) hypertension (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 Code(s): E11.610 - TYPE 2 DIABETES MELLITUS W DIABETIC NEUROPATHIC ARTHROPATHY Qualifiers: Diabetes mellitus [facility] insulin use: with terminal operations manager use Qualified Code(s): E11.618 - Type 2 diabetes mellitus with other diabetic arthropathy; Z79.4 - technician terminal and repeater (current) use of insulin (11) Acute on chronic systolic and diastolic heart failure, NYHA class 1 Assessment/Plan: BNP >15,000 +JVP CXR: marked pulmonary vascular congestion and pleural effusion. Plan: Continue carvedillol, lisinopril; consider adding spironolactone (while carefully following BUN/Cr and electrolytes). If BP falls, may decrease or stop nifedipine. increase lasix to 80 IV BID, monitor bun/cr F/u daily weights. Code(s): I50.43 - ACUTE ON CHRONIC COMBINED SYSTOLIC AND DIASTOLIC HRT FAIL
[2016-11-02] MEDS ORDERED: FUROSEMIDE 40 MG/4 ML INJECTABLE VIAL IVPUSH ONE (12:24)
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
[2016-11-02] MEDS: ISOSORBIDE MONONITRATE 30 MG TAB.SR.24H (FP) PO SCH (13:37)
[2016-11-02] MEDS: GABAPENTIN 300 MG CAPSULE (FP) PO SCH ×2 (13:38→21:57)
[2016-11-02] MEDS: LISINOPRIL 10 MG TABLET (FP) PO SCH (13:38)
[2016-11-02] MEDS: levETIRAcetam 500 MG TABLET (FP) PO SCH ×2 (13:38→21:56)
[2016-11-02] MEDS: FUROSEMIDE 100 MG/10 ML INJECTABLE VIAL IVPB SCH (13:39)
[2016-11-02] MEDS ORDERED: INSULIN (NOVOLOG) ASPART 100 UNITS/ML 10ML VIAL ONE ×2 (13:57→17:28)
[2016-11-02] MEDS: ACETAMINOPHEN 325 MG TABLET (FP) PO PRN (14:05)
--- NOTE | 2016-11-02 20:06 | CONS ---
DATE OF CONSULTATION: 11/02/2016 REFERRING PHYSICIAN: Seth Wagner MD History was obtained from patient's daughter as well as ER chart. The patient is a 75-year-old male with past medical history of ASHD status post [place], status post stents in June and CVA with right hemiparesis, congestive heart failure , chronic kidney disease, anemia, dementia, diabetes, hyperlipidemia, hypertension. Was transferred from the [facility] to [facility] secondary to increasing shortness of breath, cough, chest congestion, lower extremity edema, and chest pain. Patient apparently on Monday was noted to have increasing lower extremity edema. At the time, his diuretic dose was increased. Apparently, yesterday, he started developing increasing shortness of breath, chest congestion. EMS was called, and the patient was brought to the emergency room. In the ER, he was noted to be tachypneic, was hypoxic with O2 saturations in the 80s. Initially, he was given Lasix with minimal improvement. He was placed on BiPAP and transferred to the telemetry unit for further monitoring. He is a nonsmoker. There is no history of occupational exposure to chemicals or fumes. He was born in [place] and moved to the [facility] many years ago. There is no history of recent travel. There is no history of DVT or PE in the past. There is no history of hemoptysis and no fevers. PAST MEDICAL HISTORY: Again includes chronic kidney disease, congestive heart failure, CHF, dementia, diabetes, hypertension, CVA, ASHD status post stents, atrial fibrillation as well as seizure disorder. REVIEW OF SYSTEMS: Unable to obtain. CURRENT MEDICATIONS: Include Flomax, Tylenol, Prinivil, Neurontin, Keppra, Remeron, DuoNeb, Coreg, Colace, Procardia, Januvia, Lipitor, Novolog, Feosol, Lasix IV, Imdur, Ecotrin, Aricept, Plavix, Protonix, finasteride, Drisdol. PHYSICAL EXAMINATION: General: The patient is a well-developed, well-nourished male, currently awake on BiPAP. He is comfortable, in no acute distress. Vital signs: He is currently afebrile. Heart rate is 78, blood pressure is 164 /84, O2 saturation is 93%, weight is 197 pounds. HEENT: Exam is normocephalic, atraumatic. Neck: Supple. Heart: Irregularly irregular with normal S1, S2. Chest: Bibasilar crackles. Abdomen: Soft. Bowel sounds are positive. Extremities: There is 1+ edema. Neurologic: Right hemiparesis. LABORATORIES: WBC is 6.2, hemoglobin 9.3, hematocrit 29.9 with a platelet count of 169,000. INR is 1.19. Blood gas: A pH of 7.32, a PCO2 of 65, a PO2 of 60, a bicarbonate of 33 and a saturation of 89.5. That was on BiPAP IPAP of 18 and EPAP of 8 and FiO2 of 60% and a rate of 26. BUN 36, creatinine 1.9. BNP is 15, 356. Chest x-ray: Increased pulmonary vascular congestion. IMPRESSION: 1. [id number] hypercapnic, hypoxemic respiratory failure secondary to decompensated congestive heart failure. 2. Atherosclerotic heart disease status post myocardial infarction, status post stents. 3. Chronic kidney disease. 4. Atrial fibrillation. 5. Diabetes mellitus. 6. Hypertension. 7. History of seizures. 8. Dementia. 9. Status post cerebrovascular accident with right hemiparesis. 10. Okrjr-[id number] kidney disease. PLAN: Continue IV Lasix, supplemental O2 as well as BiPAP. To follow up arterial blood gas. Daily weights. Followup chest x-rays, cardiac enzymes. Monitor renal function. Monitor electrolytes. NOEMÍ TORRES M.D. ANA [id number] MTDD
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
[2016-11-02] MEDS: MIRTAZAPINE 15 MG TABLET (FP) PO SCH (21:56)
[2016-11-02] MEDS: INSULIN DETEMIR 100 UNITS/ML MDV SQ SCH (21:56)
[2016-11-02] MEDS: ATORVASTATIN CA 10 MG TABLET (FP) PO SCH (21:57)
[2016-11-02] MEDS: METHYL SALICYLATE/MENTHOL OINT 30 GM TUBE TP SCH (23:19)
[2016-11-03] MEDS: FUROSEMIDE 100 MG/10 ML INJECTABLE VIAL IVPB SCH ×2 (06:14→15:11)
[2016-11-03] MEDS: INSULIN SLIDING SCALE (NOVOLOG) 1 VIAL SQ SCH ×4 (06:14→21:45)
[2016-11-03] MEDS: sitaGLIPtin PHOSPHATE 50 MG TABLET PO SCH (06:14)
--- NOTE | 2016-11-03 08:05 | PN ---
Progress Note (short form) - Note Progress Note: patient and family need a dietary/nutrition educational discussion. The reports the patient ate hot dogs from home that they brought in to the shelter/rehab.. I explained hotdogs and foods with nitrates all contain a plethora of sodium that Mr Medrano can not tolerate and would put him in heart failure. I have ordered a dietary consult to discuss the correct ada/chf/renal diet. Problem List - Problems (1) Acute on chronic respiratory failure with hypoxia and hypercapnia Code(s): J96.21 - ACUTE AND CHRONIC RESPIRATORY FAILURE WITH HYPOXIA J96.22 - ACUTE AND CHRONIC RESPIRATORY FAILURE WITH HYPERCAPNIA (2) Acute on chronic systolic and diastolic heart failure, NYHA class 1 Code(s): I50.43 - ACUTE ON CHRONIC COMBINED SYSTOLIC AND DIASTOLIC HRT FAIL (3) Acute respiratory disease Code(s): J06.9 - ACUTE UPPER RESPIRATORY INFECTION, UNSPECIFIED (4) Atrial flutter Code(s): I48.92 - UNSPECIFIED ATRIAL FLUTTER Qualifiers: Atrial flutter type: unspecified Qualified Code(s): I48.92 - Unspecified atrial flutter (5) Atypical chest pain Code(s): R07.89 - OTHER CHEST PAIN (6) Chronic systolic CHF (congestive heart failure) Code(s): I50.22 - CHRONIC SYSTOLIC (CONGESTIVE) HEART FAILURE (7) Pacemaker Code(s): Z95.0 - PRESENCE OF CARDIAC PACEMAKER (8) Acute on chronic renal failure Code(s): N17.9 - ACUTE KIDNEY FAILURE, UNSPECIFIED N18.9 - CHRONIC KIDNEY DISEASE, UNSPECIFIED (9) Acute on chronic systolic (congestive) heart failure Code(s): I50.23 - ACUTE ON CHRONIC SYSTOLIC (CONGESTIVE) HEART FAILURE (10) Acute respiratory failure Code(s): J96.00 - ACUTE RESPIRATORY FAILURE, UNSP W HYPOXIA OR HYPERCAPNIA (11) Diabetes mellitus Code(s): E11.9 - TYPE 2 DIABETES MELLITUS WITHOUT COMPLICATIONS Qualifiers: Diabetes mellitus type: type 1 Diabetes mellitus complication status: with hyperglycemia Qualified Code(s): E10.65 - Type 1 diabetes mellitus with hyperglycemia (12) HTN (hypertension) Code(s): I10 - ESSENTIAL (PRIMARY) HYPERTENSION Qualifiers: Hypertension type: essential hypertension Qualified Code(s): I10 - Essential (primary) hypertension
[2016-11-03] MEDS ORDERED: PT OWN MED DRAWER 7, Y5N ONE (09:35)
[2016-11-03] MEDS: TAMSULOSIN HCL 0.4 MG CAP.ER.24H (FP) PO SCH (09:44)
[2016-11-03] MEDS: METHYL SALICYLATE/MENTHOL OINT 30 GM TUBE TP SCH ×3 (09:45→21:56)
[2016-11-03] MEDS: DONEPEZIL HCL 5 MG TABLET (FP) PO SCH (09:45)
[2016-11-03] MEDS: ASPIRIN COATED 81 MG TABLET.EC PO SCH (09:46)
[2016-11-03] MEDS: DOCUSATE SODIUM 100 MG CAPSULE (FP) PO SCH (09:46)
[2016-11-03] MEDS: CARVEDILOL 12.5 MG TABLET (FP) PO SCH ×2 (09:46→21:44)
[2016-11-03] MEDS: ISOSORBIDE MONONITRATE 30 MG TAB.SR.24H (FP) PO SCH (09:47)
[2016-11-03] MEDS: FERROUS SO4 325 MG TABLET (FP) PO SCH ×2 (09:47→21:44)
[2016-11-03] MEDS: levETIRAcetam 500 MG TABLET (FP) PO SCH ×2 (09:47→21:44)
[2016-11-03] MEDS: LISINOPRIL 10 MG TABLET (FP) PO SCH (09:48)
[2016-11-03] MEDS: GABAPENTIN 300 MG CAPSULE (FP) PO SCH ×2 (09:48→21:45)
[2016-11-03] MEDS: CLOPIDOGREL BISULFATE 75 MG TABLET (FP) PO SCH (09:48)
[2016-11-03] MEDS: PANTOPRAZOLE 40 MG TABLET (FP) PO SCH (09:49)
[2016-11-03] MEDS: FINASTERIDE 5 MG TABLET (FP) PO SCH (09:49)
[2016-11-03] MEDS: NIFEdipine E.R 60 MG TABLET (UD) PO SCH (09:49)
[2016-11-03] MEDS: ALBUTEROL SO4 2.5/IPRATROPIUM 0.5 INH SOL 3 ML VIAL.NEB. NEB PRN (10:53)
--- NOTE | 2016-11-03 13:52 | PN ---
Progress Note, Physician Chief Complaint: Pt Alert; no chest pain or dyspnea. History of Present Illness: The patient is a 62-year-old man (b. [place]), accompanied by and daughter, with a significant past medical history severe systolic heart failure- ->ICD, CAD-->PCI, hypertension, chronic obstructive pulmonary disease ( requiring intubation on 2005), emphysema, ?dementia, who presents to the emergency department via EMS for further evaluation of shortness of breath. HPI limited as patient arrives in severe respiratory distress. As per patient's , his symptoms started approximately 1 month ago with an intermittent productive cough with yellow-green sputum. She states that his symptoms worsened over the the past 3 days, as he became increasingly short of breath. EMS was activated today, and on arrival, the patient was noted to be in the low 90s on a non-rebreather and was found to have diffuse expiratory wheezes in the field, and was in respiratory distress. He was given 10 milligrams of Decadron and received a second Combivent. He was also placed on BiPAP, with noted improvement of his shortness of breath and oxygen saturation of 98%. No fever, chills, sick contacts. History provided by EMS, old records and pts who is with him Daughter and say pt has shown little response over the past 2 hours; prior to that, he was talking. Allergies: No Known Drug Allergies. Past Surgical History: None reported Social History: Former cigarette use. No ETOH and recreational drug use. Primary Care Physician: Dr. Damaris Bautista Business Office Director: Dr. Saqib Galaviz (Affiliated with [facility]) - Current Medication List Current Medications: Active Medications Acetaminophen (Tylenol -) 650 mg PO Q6H PRN PRN Reason: FEVER OR PAIN Last Admin: 11/02/16 14:05 Dose: 650 mg Albuterol/Ipratropium (Duoneb -) 1 amp NEB Q6H PRN PRN Reason: SHORTNESS OF BREATH Last Admin: 11/03/16 10:53 Dose: 1 amp Aspirin (Ecotrin -) 81 mg PO DAILY [facility] Last Admin: 11/03/16 09:46 Dose: 81 mg Atorvastatin Calcium (Lipitor -) 10 mg PO HS [facility] Last Admin: 11/02/16 21:57 Dose: 10 mg Carvedilol (Coreg -) 12.5 mg PO BID [facility] Last Admin: 11/03/16 09:46 Dose: 12.5 mg Clopidogrel Bisulfate (Plavix -) 75 mg PO DAILY [facility] Last Admin: 11/03/16 09:48 Dose: 75 mg Docusate Sodium (Colace -) 100 mg PO DAILY [facility] Last Admin: 11/03/16 09:46 Dose: 100 mg Donepezil HCl (Aricept -) 5 mg PO DAILY [facility] Last Admin: 11/03/16 09:45 Dose: 5 mg Ergocalciferol (Drisdol -) 50,000 unit PO Q7D@1000 [facility] Ferrous Sulfate (Feosol -) 325 mg PO BID [facility] Last Admin: 11/03/16 09:47 Dose: 325 mg Finasteride (Proscar -) 5 mg PO DAILY [facility] Last Admin: 11/03/16 09:49 Dose: 5 mg Furosemide (Lasix Injection -) 80 mg IVPB BID@0600,1400 [facility] Last Admin: 11/03/16 06:14 Dose: 80 mg Gabapentin (Neurontin -) 300 mg PO BID [facility] Last Admin: 11/03/16 09:48 Dose: 300 mg Insulin Aspart (Novolog Vial Sliding Scale -) 1 vial SQ [facility] PRN Reason: Protocol Last Admin: 11/03/16 11:57 Dose: 4 units Insulin Detemir (Levemir Vial) 15 units SQ [facility] Last Admin: 11/02/16 21:56 Dose: 15 units Isosorbide Mononitrate (Imdur -) 30 mg PO DAILY [facility] Last Admin: 11/03/16 09:47 Dose: 30 mg Levetiracetam (Keppra -) 1,000 mg PO BID [facility] Last Admin: 11/03/16 09:47 Dose: 1,000 mg Lisinopril (Prinivil) 10 mg PO DAILY [facility] Last Admin: 11/03/16 09:48 Dose: 10 mg Methyl Salicylate (Girish-Mai -) 1 applic TP BID [facility] Last Admin: 11/03/16 09:45 Dose: 1 applic Mirtazapine (Remeron -) 15 mg PO HS [facility] Last Admin: 11/02/16 21:56 Dose: 15 mg Nifedipine (Procardia Xl -) 60 mg PO DAILY [facility] Last Admin: 11/03/16 09:49 Dose: 60 mg Pantoprazole Sodium (Protonix -) 40 mg PO DAILY [facility] Last Admin: 11/03/16 09:49 Dose: 40 mg Sitagliptin Phosphate (Januvia -) 50 mg PO DAILY@0700 [facility] Last Admin: 11/03/16 06:14 Dose: 50 mg Tamsulosin HCl (Flomax -) 0.4 mg PO DAILY@0830 [facility] Last Admin: 11/03/16 09:44 Dose: 0.4 mg - Objective Vital Signs: Vital Signs Temperature 97.5 F L 11/03/16 10:00 Pulse Rate 68 11/03/16 10:34 Respiratory Rate 20 11/03/16 10:00 Blood Pressure 131/73 11/03/16 10:00 O2 Sat by Pulse Oximetry (%) 97 11/03/16 10:34 Constitutional: Yes: Calm Eyes: Yes: WNL HENT: Yes: WNL Neck: Yes: WNL Cardiovascular: Yes: S1, S2 (split) Respiratory: Yes: Regular ...Rectal Exam: Yes: Deferred Genitourinary: No: Anuria Breast(s): Yes: WNL Musculoskeletal: Yes: Muscle Weakness Extremities: Yes: Cool Edema: No Peripheral Pulses WNL: No Peripheral Pulses: Left Doralis Pedis: 1+, Right Dorsalis Pedis: 1+ Integumentary: Yes: WNL Neurological: Yes: Alert, Weakness Psychiatric: Yes: WNL Labs: CBC, BMP 11/02/16 05:35 11/02/16 05:35 INR, PTT INR 1.19 (0.82-1.09) H D 11/01/16 13:09 - ....Imaging EKG: Image Reviewed (ventricular-paced rhythm) Problem List - Problems (1) Acute respiratory disease Assessment/Plan: Bipap, bronchodilators, steroids, antibiotics per pulmonary and ID. Pulmonary clinic would be of benefit. Code(s): J06.9 - ACUTE UPPER RESPIRATORY INFECTION, UNSPECIFIED (2) Altered mental status Assessment/Plan: Resolved. Code(s): R41.82 - ALTERED MENTAL STATUS, UNSPECIFIED Qualifiers: Altered mental status type: disorientation Qualified Code(s): R41.0 - Disorientation, unspecified (3) Atrial flutter Assessment/Plan: on carvedilol for HR control (and systolic CHF). On ASA and clopidogrel (CAD; ?hx GI bleed precludes addition of anticoagulant). Code(s): I48.92 - UNSPECIFIED ATRIAL FLUTTER (4) Dementia Code(s): F03.90 - UNSPECIFIED DEMENTIA WITHOUT BEHAVIORAL DISTURBANCE Qualifiers: Dementia behavioral disturbance: without behavioral disturbance (5) Stented coronary artery Assessment/Plan: Continue antiischemic medication. Increase physical/cardiac exercise. Code(s): Z95.5 - PRESENCE OF CORONARY ANGIOPLASTY IMPLANT AND GRAFT (6) CVA (cerebral infarction) Assessment/Plan: f/u with neurologist. 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 On IV furosemide. BP elevated. Plan: Continue carvedillol, lisinopril. As discussed with Dr. Snyder, start spironolactone (25 mg daily). F/u BUN/Cr, electrolytes. (Pt with chronic renal dysfunction; Cr 1.9-->2.1 this admission). F/u workup for BPH (no Metcalf; has condom "cath"). Review LVEF (mild-moderate LV dysfunction in some studies; severe reduction in other); consider referral to heart failure clinic (multiple recent admissions for cardio-pulmonary issues). Code(s): I50.43 - ACUTE ON CHRONIC COMBINED SYSTOLIC AND DIASTOLIC HRT FAIL
--- NOTE | 2016-11-03 15:00 | PN ---
Progress Note, Physician History of Present Illness: Pt seen and examined at bedside. He is awake and alert today. He feels that his breathing is much improved. - Current Medication List Current Medications: Active Medications Acetaminophen (Tylenol -) 650 mg PO Q6H PRN PRN Reason: FEVER OR PAIN Last Admin: 11/02/16 14:05 Dose: 650 mg Albuterol/Ipratropium (Duoneb -) 1 amp NEB Q6H PRN PRN Reason: SHORTNESS OF BREATH Last Admin: 11/03/16 10:53 Dose: 1 amp Aspirin (Ecotrin -) 81 mg PO DAILY [facility] Last Admin: 11/03/16 09:46 Dose: 81 mg Atorvastatin Calcium (Lipitor -) 10 mg PO HS [facility] Last Admin: 11/02/16 21:57 Dose: 10 mg Carvedilol (Coreg -) 12.5 mg PO BID [facility] Last Admin: 11/03/16 09:46 Dose: 12.5 mg Clopidogrel Bisulfate (Plavix -) 75 mg PO DAILY [facility] Last Admin: 11/03/16 09:48 Dose: 75 mg Docusate Sodium (Colace -) 100 mg PO DAILY [facility] Last Admin: 11/03/16 09:46 Dose: 100 mg Donepezil HCl (Aricept -) 5 mg PO DAILY [facility] Last Admin: 11/03/16 09:45 Dose: 5 mg Ergocalciferol (Drisdol -) 50,000 unit PO Q7D@1000 [facility] Ferrous Sulfate (Feosol -) 325 mg PO BID [facility] Last Admin: 11/03/16 09:47 Dose: 325 mg Finasteride (Proscar -) 5 mg PO DAILY [facility] Last Admin: 11/03/16 09:49 Dose: 5 mg Furosemide (Lasix Injection -) 80 mg IVPB BID@0600,1400 [facility] Last Admin: 11/03/16 06:14 Dose: 80 mg Gabapentin (Neurontin -) 300 mg PO BID [facility] Last Admin: 11/03/16 09:48 Dose: 300 mg Insulin Aspart (Novolog Vial Sliding Scale -) 1 vial SQ ACHS [facility] PRN Reason: Protocol Last Admin: 11/03/16 11:57 Dose: 4 units Insulin Detemir (Levemir Vial) 15 units SQ HS [facility] Last Admin: 11/02/16 21:56 Dose: 15 units Isosorbide Mononitrate (Imdur -) 30 mg PO DAILY [facility] Last Admin: 11/03/16 09:47 Dose: 30 mg Levetiracetam (Keppra -) 1,000 mg PO BID [facility] Last Admin: 11/03/16 09:47 Dose: 1,000 mg Lisinopril (Prinivil) 10 mg PO DAILY [facility] Last Admin: 11/03/16 09:48 Dose: 10 mg Methyl Salicylate (Girish-Mai -) 1 applic TP BID [facility] Last Admin: 11/03/16 09:45 Dose: 1 applic Mirtazapine (Remeron -) 15 mg PO HS [facility] Last Admin: 11/02/16 21:56 Dose: 15 mg Nifedipine (Procardia Xl -) 60 mg PO DAILY [facility] Last Admin: 11/03/16 09:49 Dose: 60 mg Pantoprazole Sodium (Protonix -) 40 mg PO DAILY [facility] Last Admin: 11/03/16 09:49 Dose: 40 mg Sitagliptin Phosphate (Januvia -) 50 mg PO DAILY@0700 [facility] Last Admin: 11/03/16 06:14 Dose: 50 mg Tamsulosin HCl (Flomax -) 0.4 mg PO DAILY@0830 [facility] Last Admin: 11/03/16 09:44 Dose: 0.4 mg - Objective Vital Signs: Vital Signs Temperature 97.5 F L 11/03/16 10:00 Pulse Rate 68 11/03/16 10:34 Respiratory Rate 20 11/03/16 10:00 Blood Pressure 131/73 11/03/16 10:00 O2 Sat by Pulse Oximetry (%) 97 11/03/16 10:34 Constitutional: Yes: Calm Eyes: Yes: Conjunctiva Clear HENT: Yes: Atraumatic Cardiovascular: Yes: S1, S2 Respiratory: Yes: CTA Bilaterally, On Nasal O2 Gastrointestinal: Yes: Soft Genitourinary: Yes: WNL Extremities: Yes: WNL Edema: Yes Edema: LLE: Trace, RLE: Trace Neurological: Yes: Oriented, Pre-Existing Deficit Psychiatric: Yes: Oriented Labs: CBC, BMP 11/02/16 05:35 11/02/16 05:35 INR, PTT INR 1.19 (0.82-1.09) H D 11/01/16 13:09 Problem List - Problems (1) CHF (congestive heart failure) Code(s): I50.9 - HEART FAILURE, UNSPECIFIED Qualifiers: Qualified Code(s): I50.43 - Acute on chronic combined systolic ( congestive) and diastolic (congestive) heart failure (2) Stented coronary artery Code(s): Z95.5 - PRESENCE OF CORONARY ANGIOPLASTY IMPLANT AND GRAFT (3) CKD (chronic kidney disease) Code(s): N18.9 - CHRONIC KIDNEY DISEASE, UNSPECIFIED (4) COPD (chronic obstructive pulmonary disease) Code(s): J44.9 - CHRONIC OBSTRUCTIVE PULMONARY DISEASE, UNSPECIFIED Assessment/Plan Current Medications Generic Name Dose Route Start Last Admin Trade Name Freq PRN Reason Stop Dose Admin Acetaminophen 650 mg 11/01/16 19:45 11/02/16 14:05 Tylenol - PO 650 mg Q6H PRN Administration FEVER OR PAIN Albuterol/Ipratropium 1 amp 11/01/16 19:45 11/03/16 10:53 Duoneb - NEB 1 amp Q6H PRN Administration SHORTNESS OF BREATH Aspirin 81 mg 11/02/16 10:00 11/03/16 09:46 Ecotrin - PO 81 mg DAILY [facility] Administration Atorvastatin Calcium 10 mg 11/01/16 22:00 11/02/16 21:57 Lipitor - PO 10 mg HS [facility] Administration Carvedilol 12.5 mg 11/01/16 22:00 11/03/16 09:46 Coreg - PO 12.5 mg BID [facility] Administration Clopidogrel Bisulfate 75 mg 11/02/16 10:00 11/03/16 09:48 Plavix - PO 75 mg DAILY [facility] Administration Docusate Sodium 100 mg 11/02/16 10:00 11/03/16 09:46 Colace - PO 100 mg DAILY [facility] Administration Donepezil HCl 5 mg 11/02/16 10:00 11/03/16 09:45 Aricept - PO 5 mg DAILY [facility] Administration Ergocalciferol 50,000 unit 11/08/16 10:00 Drisdol - PO Q7D@1000 [facility] Ferrous Sulfate 325 mg 11/01/16 22:00 11/03/16 09:47 Feosol - PO 325 mg BID [facility] Administration Finasteride 5 mg 11/02/16 10:00 11/03/16 09:49 Proscar - PO 5 mg DAILY [facility] Administration Furosemide 80 mg 11/02/16 14:00 11/03/16 06:14 Lasix Injection - IVPB 80 mg BID@0600,1400 [facility] Administration Gabapentin 300 mg 11/01/16 22:00 11/03/16 09:48 Neurontin - PO 300 mg BID [facility] Administration Insulin Aspart 1 vial 11/01/16 22:00 11/03/16 11:57 Novolog Vial Sliding Scale - SQ 4 units ACHS [facility] Administration Protocol Insulin Detemir 15 units 11/01/16 22:00 11/02/16 21:56 Levemir Vial SQ 15 units HS [facility] Administration Isosorbide Mononitrate 30 mg 11/02/16 10:00 11/03/16 09:47 Imdur - PO 30 mg DAILY [facility] Administration Levetiracetam 1,000 mg 11/01/16 22:00 11/03/16 09:47 Keppra - PO 1,000 mg BID [facility] Administration Lisinopril 10 mg 11/02/16 10:00 11/03/16 09:48 Prinivil PO 10 mg DAILY [facility] Administration Methyl Salicylate 1 applic 11/02/16 10:00 11/03/16 09:45 Girish-Mai - TP 1 applic BID [facility] Administration Mirtazapine 15 mg 11/01/16 22:00 11/02/16 21:56 Remeron - PO 15 mg HS [facility] Administration Nifedipine 60 mg 11/02/16 10:00 11/03/16 09:49 Procardia Xl - PO 60 mg DAILY [facility] Administration Pantoprazole Sodium 40 mg 11/02/16 10:00 11/03/16 09:49 Protonix - PO 40 mg DAILY [facility] Administration Sitagliptin Phosphate 50 mg 11/02/16 07:00 11/03/16 06:14 Januvia - PO 50 mg DAILY@0700 [facility] Administration Tamsulosin HCl 0.4 mg 11/02/16 08:30 11/03/16 09:44 Flomax - PO 0.4 mg DAILY@0830 [facility] Administration Impression 1. CKD 2. hypoxia 3. hx CVA 4. DM 5. epilepsy 6. hyperlipidemia 7. hx anemia 8. hx a-fib 9. hypokalemia 10. CAD 11. acute CHF Plan - volumes status is improving - will need higher dose of lasix on discharge - pt is off of bipap today, cont oxygen - no bmp from today, will order bloodwork - monitor BP - discussed plan with pts family - monitor on tele - can keep on michael - will follow Dr Jc
--- NOTE | 2016-11-03 16:10 | PN ---
Progress Note (short form) - Note Progress Note: Breathing feels better today. Less SOB. No CP. Intake & Output 10/31/16 11/01/16 11/02/16 11/03/16 23:59 23:59 23:59 23:59 Intake Total 300 Output Total 200 850 500 Balance -200 -550 -500 Weight 193 lb 193 lb 195 lb 4 oz Last Vital Signs Temp Pulse Resp BP Pulse Ox 98.6 F 63 20 105/50 97 11/03/16 15:44 11/03/16 15:56 11/03/16 15:44 11/03/16 15:56 11/03/16 10:34 Active Medications Acetaminophen (Tylenol -) 650 mg PO Q6H PRN PRN Reason: FEVER OR PAIN Last Admin: 11/02/16 14:05 Dose: 650 mg Albuterol/Ipratropium (Duoneb -) 1 amp NEB Q6H PRN PRN Reason: SHORTNESS OF BREATH Last Admin: 11/03/16 10:53 Dose: 1 amp Aspirin (Ecotrin -) 81 mg PO DAILY [facility] Last Admin: 11/03/16 09:46 Dose: 81 mg Atorvastatin Calcium (Lipitor -) 10 mg PO HS [facility] Last Admin: 11/02/16 21:57 Dose: 10 mg Carvedilol (Coreg -) 12.5 mg PO BID [facility] Last Admin: 11/03/16 09:46 Dose: 12.5 mg Clopidogrel Bisulfate (Plavix -) 75 mg PO DAILY [facility] Last Admin: 11/03/16 09:48 Dose: 75 mg Docusate Sodium (Colace -) 100 mg PO DAILY [facility] Last Admin: 11/03/16 09:46 Dose: 100 mg Donepezil HCl (Aricept -) 5 mg PO DAILY [facility] Last Admin: 11/03/16 09:45 Dose: 5 mg Ergocalciferol (Drisdol -) 50,000 unit PO Q7D@1000 [facility] Ferrous Sulfate (Feosol -) 325 mg PO BID [facility] Last Admin: 11/03/16 09:47 Dose: 325 mg Finasteride (Proscar -) 5 mg PO DAILY [facility] Last Admin: 11/03/16 09:49 Dose: 5 mg Furosemide (Lasix Injection -) 80 mg IVPB BID@0600,1400 [facility] Last Admin: 11/03/16 15:11 Dose: 80 mg Gabapentin (Neurontin -) 300 mg PO BID [facility] Last Admin: 11/03/16 09:48 Dose: 300 mg Insulin Aspart (Novolog Vial Sliding Scale -) 1 vial SQ [facility] PRN Reason: Protocol Last Admin: 11/03/16 11:57 Dose: 4 units Insulin Detemir (Levemir Vial) 15 units SQ [facility] Last Admin: 11/02/16 21:56 Dose: 15 units Isosorbide Mononitrate (Imdur -) 30 mg PO DAILY [facility] Last Admin: 11/03/16 09:47 Dose: 30 mg Levetiracetam (Keppra -) 1,000 mg PO BID [facility] Last Admin: 11/03/16 09:47 Dose: 1,000 mg Lisinopril (Prinivil) 10 mg PO DAILY [facility] Last Admin: 11/03/16 09:48 Dose: 10 mg Methyl Salicylate (Girish-Mai -) 1 applic TP BID [facility] Last Admin: 11/03/16 09:45 Dose: 1 applic Mirtazapine (Remeron -) 15 mg PO [facility] Last Admin: 11/02/16 21:56 Dose: 15 mg Nifedipine (Procardia Xl -) 60 mg PO DAILY [facility] Last Admin: 11/03/16 09:49 Dose: 60 mg Pantoprazole Sodium (Protonix -) 40 mg PO DAILY [facility] Last Admin: 11/03/16 09:49 Dose: 40 mg Sitagliptin Phosphate (Januvia -) 50 mg PO DAILY@0700 [facility] Last Admin: 11/03/16 06:14 Dose: 50 mg Tamsulosin HCl (Flomax -) 0.4 mg PO DAILY@0830 [facility] Last Admin: 11/03/16 09:44 Dose: 0.4 mg Constitutional: Yes: NAD Eyes: Yes: Conjunctiva Clear HENT: Yes: Atraumatic Cardiovascular: Yes: S1, S2 Respiratory: Yes: few scattered rhonchi Gastrointestinal: Yes: Soft Genitourinary: Yes: WNL Extremities: Yes: WNL Edema: Yes Edema: LLE: Trace, RLE: Trace Neurological: Yes: Oriented, Pre-Existing Deficit Psychiatric: Yes: Oriented Laboratory Results - last 24 hr 11/02/16 11/03/16 11/03/16 20:59 05:44 11:55 POC Glucometer 242 192 269 11/03/16 15:48 POC Glucometer 241 Problem List - Problems (1) Acute on chronic systolic and diastolic heart failure, NYHA class 1 Code(s): I50.43 - ACUTE ON CHRONIC COMBINED SYSTOLIC AND DIASTOLIC HRT FAIL (2) Acute respiratory disease Code(s): J06.9 - ACUTE UPPER RESPIRATORY INFECTION, UNSPECIFIED (3) Altered mental status Code(s): R41.82 - ALTERED MENTAL STATUS, UNSPECIFIED Qualifiers: Altered mental status type: disorientation Qualified Code(s): R41.0 - Disorientation, unspecified (4) Atypical chest pain Code(s): R07.89 - OTHER CHEST PAIN (5) CHF (congestive heart failure) Code(s): I50.9 - HEART FAILURE, UNSPECIFIED Qualifiers: Congestive heart failure type: combined Congestive heart failure chronicity: acute on chronic Qualified Code(s): I50.43 - Acute on chronic combined systolic (congestive) and diastolic (congestive) heart failure (6) Dementia Code(s): F03.90 - UNSPECIFIED DEMENTIA WITHOUT BEHAVIORAL DISTURBANCE Qualifiers: Dementia behavioral disturbance: without behavioral disturbance (7) Epilepsy Code(s): G40.909 - EPILEPSY, UNSP, NOT INTRACTABLE, WITHOUT STATUS EPILEPTICUS (8) Stented coronary artery Code(s): Z95.5 - PRESENCE OF CORONARY ANGIOPLASTY IMPLANT AND GRAFT (9) ASHD (arteriosclerotic heart disease) Code(s): I25.10 - ATHSCL HEART DISEASE OF [place] CORONARY ARTERY W/O ANG PCTRS (10) Acute respiratory failure Code(s): J96.00 - ACUTE RESPIRATORY FAILURE, UNSP W HYPOXIA OR HYPERCAPNIA (11) CKD (chronic kidney disease) Code(s): N18.9 - CHRONIC KIDNEY DISEASE, UNSPECIFIED (12) CVA (cerebral vascular accident) Code(s): I63.9 - CEREBRAL INFARCTION, UNSPECIFIED Qualifiers: Precerebral and cerebral artery: unspecified precerebral artery (13) Chest pain Code(s): R07.9 - CHEST PAIN, UNSPECIFIED Qualifiers: Chest pain type: precordial chest pain (14) Diabetes mellitus Code(s): E11.9 - TYPE 2 DIABETES MELLITUS WITHOUT COMPLICATIONS Qualifiers: Diabetes mellitus type: type 1 Diabetes mellitus complication status: with hyperglycemia Qualified Code(s): E10.65 - Type 1 diabetes mellitus with hyperglycemia (15) Difficulty breathing Code(s): R06.89 - OTHER ABNORMALITIES OF BREATHING (16) GERD (gastroesophageal reflux disease) Code(s): K21.9 - GASTRO-ESOPHAGEAL REFLUX DISEASE WITHOUT ESOPHAGITIS (17) HLD (hyperlipidemia) Code(s): E78.5 - HYPERLIPIDEMIA, UNSPECIFIED (18) HTN (hypertension) Code(s): I10 - ESSENTIAL (PRIMARY) HYPERTENSION Qualifiers: Hypertension type: essential hypertension Qualified Code(s): I10 - Essential (primary) hypertension (19) Hypoxia Code(s): R09.02 - HYPOXEMIA (20) Seizure disorder Code(s): G40.909 - EPILEPSY, UNSP, NOT INTRACTABLE, WITHOUT STATUS EPILEPTICUS (21) Acute on chronic respiratory failure with hypoxia and hypercapnia Code(s): J96.21 - ACUTE AND CHRONIC RESPIRATORY FAILURE WITH HYPOXIA J96.22 - ACUTE AND CHRONIC RESPIRATORY FAILURE WITH HYPERCAPNIA PLAN LASIX BIPAP alternating with NC O2 INHALED BRONCHODILATORS MONITOR LYTES DAILY WTS VTE PROPHYLAXIS DR ANDERSON
--- NOTE | 2016-11-03 18:39 | PN ---
Progress Note, Physician Chief Complaint: AWAKE FEELING BETTER - Current Medication List Current Medications: Active Medications Acetaminophen (Tylenol -) 650 mg PO Q6H PRN PRN Reason: FEVER OR PAIN Last Admin: 11/02/16 14:05 Dose: 650 mg Albuterol/Ipratropium (Duoneb -) 1 amp NEB Q6H PRN PRN Reason: SHORTNESS OF BREATH Last Admin: 11/03/16 10:53 Dose: 1 amp Aspirin (Ecotrin -) 81 mg PO DAILY [facility] Last Admin: 11/03/16 09:46 Dose: 81 mg Atorvastatin Calcium (Lipitor -) 10 mg PO HS [facility] Last Admin: 11/02/16 21:57 Dose: 10 mg Carvedilol (Coreg -) 12.5 mg PO BID [facility] Last Admin: 11/03/16 09:46 Dose: 12.5 mg Clopidogrel Bisulfate (Plavix -) 75 mg PO DAILY [facility] Last Admin: 11/03/16 09:48 Dose: 75 mg Docusate Sodium (Colace -) 100 mg PO DAILY [facility] Last Admin: 11/03/16 09:46 Dose: 100 mg Donepezil HCl (Aricept -) 5 mg PO DAILY [facility] Last Admin: 11/03/16 09:45 Dose: 5 mg Ergocalciferol (Drisdol -) 50,000 unit PO Q7D@1000 [facility] Ferrous Sulfate (Feosol -) 325 mg PO BID [facility] Last Admin: 11/03/16 09:47 Dose: 325 mg Finasteride (Proscar -) 5 mg PO DAILY [facility] Last Admin: 11/03/16 09:49 Dose: 5 mg Furosemide (Lasix Injection -) 80 mg IVPB BID@0600,1400 [facility] Last Admin: 11/03/16 15:11 Dose: 80 mg Gabapentin (Neurontin -) 300 mg PO BID [facility] Last Admin: 11/03/16 09:48 Dose: 300 mg Insulin Aspart (Novolog Vial Sliding Scale -) 1 vial SQ [facility] PRN Reason: Protocol Last Admin: 11/03/16 17:08 Dose: 2 units Insulin Detemir (Levemir Vial) 15 units SQ HS [facility] Last Admin: 11/02/16 21:56 Dose: 15 units Isosorbide Mononitrate (Imdur -) 30 mg PO DAILY [facility] Last Admin: 11/03/16 09:47 Dose: 30 mg Levetiracetam (Keppra -) 1,000 mg PO BID [facility] Last Admin: 11/03/16 09:47 Dose: 1,000 mg Lisinopril (Prinivil) 10 mg PO DAILY [facility] Last Admin: 11/03/16 09:48 Dose: 10 mg Methyl Salicylate (Girish-Mai -) 1 applic TP BID [facility] Last Admin: 11/03/16 09:45 Dose: 1 applic Mirtazapine (Remeron -) 15 mg PO HS [facility] Last Admin: 11/02/16 21:56 Dose: 15 mg Nifedipine (Procardia Xl -) 60 mg PO DAILY [facility] Last Admin: 11/03/16 09:49 Dose: 60 mg Pantoprazole Sodium (Protonix -) 40 mg PO DAILY [facility] Last Admin: 11/03/16 09:49 Dose: 40 mg Sitagliptin Phosphate (Januvia -) 50 mg PO DAILY@0700 [facility] Last Admin: 11/03/16 06:14 Dose: 50 mg Tamsulosin HCl (Flomax -) 0.4 mg PO DAILY@0830 [facility] Last Admin: 11/03/16 09:44 Dose: 0.4 mg - Objective Vital Signs: Vital Signs Temperature 98.6 F 11/03/16 15:44 Pulse Rate 63 11/03/16 15:56 Respiratory Rate 20 11/03/16 15:44 Blood Pressure 105/50 11/03/16 15:56 O2 Sat by Pulse Oximetry (%) 97 11/03/16 10:34 Constitutional: Yes: Mild Distress Eyes: Yes: WNL HENT: Yes: WNL Neck: Yes: WNL Cardiovascular: Yes: Pulse Irregular Respiratory: Yes: Poor Air Entry, SOB Gastrointestinal: Yes: WNL Genitourinary: Yes: WNL Musculoskeletal: Yes: Muscle Weakness Extremities: Yes: Other Edema: Yes Peripheral Pulses WNL: Yes Integumentary: Yes: WNL Wound/Incision: Yes: Clean/Dry Neurological: Yes: Pre-Existing Deficit, Unsteady Gait ...Motor Strength: LLE, RLE Psychiatric: Yes: Other Labs: CBC, BMP 11/02/16 05:35 11/02/16 05:35 INR, PTT INR 1.19 (0.82-1.09) H D 11/01/16 13:09 Problem List - Problems (1) Acute on chronic respiratory failure with hypoxia and hypercapnia Code(s): J96.21 - ACUTE AND CHRONIC RESPIRATORY FAILURE WITH HYPOXIA J96.22 - ACUTE AND CHRONIC RESPIRATORY FAILURE WITH HYPERCAPNIA (2) Acute on chronic systolic and diastolic heart failure, NYHA class 1 Code(s): I50.43 - ACUTE ON CHRONIC COMBINED SYSTOLIC AND DIASTOLIC HRT FAIL (3) Acute respiratory disease Code(s): J06.9 - ACUTE UPPER RESPIRATORY INFECTION, UNSPECIFIED (4) Atrial flutter Code(s): I48.92 - UNSPECIFIED ATRIAL FLUTTER Qualifiers: Qualified Code(s): I48.92 - Unspecified atrial flutter (5) Atypical chest pain Code(s): R07.89 - OTHER CHEST PAIN (6) Chronic systolic CHF (congestive heart failure) Code(s): I50.22 - CHRONIC SYSTOLIC (CONGESTIVE) HEART FAILURE (7) Pacemaker Code(s): Z95.0 - PRESENCE OF CARDIAC PACEMAKER (8) Acute on chronic renal failure Code(s): N17.9 - ACUTE KIDNEY FAILURE, UNSPECIFIED N18.9 - CHRONIC KIDNEY DISEASE, UNSPECIFIED (9) Acute on chronic systolic (congestive) heart failure Code(s): I50.23 - ACUTE ON CHRONIC SYSTOLIC (CONGESTIVE) HEART FAILURE (10) Acute respiratory failure Code(s): J96.00 - ACUTE RESPIRATORY FAILURE, UNSP W HYPOXIA OR HYPERCAPNIA (11) Diabetes mellitus Code(s): E11.9 - TYPE 2 DIABETES MELLITUS WITHOUT COMPLICATIONS Qualifiers: Qualified Code(s): E10.65 - Type 1 diabetes mellitus with hyperglycemia (12) HTN (hypertension) Code(s): I10 - ESSENTIAL (PRIMARY) HYPERTENSION Qualifiers: Qualified Code(s): I10 - Essential (primary) hypertension Assessment/Plan ACUTE CHF IV LASIX INCREASED RENAL AND CARDIOLOGY EVAL MONITOR LABS MONITOR OUTPUT DAILY [facility]IGHT[facility] 02 SUPPORT PATIENT IS NOT FOLLOWING A CHF/ADA/RENAL DIET DIETARY EVAL, EATING HOT DOGS BROUGHT FROM HOME BY THE FAMILY
[2016-11-03] MEDS: MIRTAZAPINE 15 MG TABLET (FP) PO SCH (21:45)
[2016-11-03] MEDS: ATORVASTATIN CA 10 MG TABLET (FP) PO SCH (21:45)
[2016-11-03] MEDS: INSULIN DETEMIR 100 UNITS/ML MDV SQ SCH (21:45)
[2016-11-04] MEDS: INSULIN SLIDING SCALE (NOVOLOG) 1 VIAL SQ SCH ×4 (06:40→21:37)
[2016-11-04] MEDS: sitaGLIPtin PHOSPHATE 50 MG TABLET PO SCH (06:48)
[2016-11-04] MEDS: FUROSEMIDE 100 MG/10 ML INJECTABLE VIAL IVPB SCH ×2 (06:48→13:44)
[2016-11-04 07:30] LABS: ARTERIAL BLOOD GAS HCO3 35.6 meq/L (22-26); ARTERIAL BLOOD GAS pH 7.41 (7.35-7.45)
[2016-11-04 07:34] LABS: ALLENS TEST POSITIVE; ART PUNCT SITE RIGHT RADIAL; LPM/O2% 60; PT. ON O2? YES; TYPE OF O2 BIPAP; VENT RATE 26; VT/PRESS EPAP 8
[2016-11-04 07:56] LABS: CALCIUM 7.8 mg/dL (8.5-10.1)
[2016-11-04 07:57] LABS: COCKROFT - GAULT 42.92; CREATININE 1.9 mg/dL (0.7-1.3)
[2016-11-04] MEDS: TAMSULOSIN HCL 0.4 MG CAP.ER.24H (FP) PO SCH (08:53)
--- NOTE | 2016-11-04 09:10 | PN ---
Progress Note, Physician Chief Complaint: Pt Alert; denies chest pain or dyspnea; eager to go home. History of Present Illness: The patient is a 62-year-old man (b. [place]), accompanied by and daughter, with a significant past medical history severe systolic heart failure- ->ICD, CAD-->PCI, hypertension, chronic obstructive pulmonary disease ( requiring intubation on 2005), emphysema, ?dementia, who presents to the emergency department via EMS for further evaluation of shortness of breath. HPI limited as patient arrives in severe respiratory distress. As per patient's , his symptoms started approximately 1 month ago with an intermittent productive cough with yellow-green sputum. She states that his symptoms worsened over the the past 3 days, as he became increasingly short of breath. EMS was activated today, and on arrival, the patient was noted to be in the low 90s on a non-rebreather and was found to have diffuse expiratory wheezes in the field, and was in respiratory distress. He was given 10 milligrams of Decadron and received a second Combivent. He was also placed on BiPAP, with noted improvement of his shortness of breath and oxygen saturation of 98%. No fever, chills, sick contacts. History provided by EMS, old records and pts who is with him Daughter and say pt has shown little response over the past 2 hours; prior to that, he was talking. Allergies: No Known Drug Allergies. Past Surgical History: None reported Social History: Former cigarette use. No ETOH and recreational drug use. Primary Care Physician: Dr. Damaris Bautista Wallcovering Hanger: Dr. Saqib Galaviz (Affiliated with [facility]) - Current Medication List Current Medications: Active Medications Acetaminophen (Tylenol -) 650 mg PO Q6H PRN PRN Reason: FEVER OR PAIN Last Admin: 11/02/16 14:05 Dose: 650 mg Albuterol/Ipratropium (Duoneb -) 1 amp NEB Q6H PRN PRN Reason: SHORTNESS OF BREATH Last Admin: 11/03/16 10:53 Dose: 1 amp Aspirin (Ecotrin -) 81 mg PO DAILY [facility] Last Admin: 11/03/16 09:46 Dose: 81 mg Atorvastatin Calcium (Lipitor -) 10 mg PO HS [facility] Last Admin: 11/03/16 21:45 Dose: 10 mg Carvedilol (Coreg -) 12.5 mg PO BID [facility] Last Admin: 11/03/16 21:44 Dose: 12.5 mg Clopidogrel Bisulfate (Plavix -) 75 mg PO DAILY [facility] Last Admin: 11/03/16 09:48 Dose: 75 mg Docusate Sodium (Colace -) 100 mg PO DAILY [facility] Last Admin: 11/03/16 09:46 Dose: 100 mg Donepezil HCl (Aricept -) 5 mg PO DAILY [facility] Last Admin: 11/03/16 09:45 Dose: 5 mg Ergocalciferol (Drisdol -) 50,000 unit PO Q7D@1000 [facility] Ferrous Sulfate (Feosol -) 325 mg PO BID [facility] Last Admin: 11/03/16 21:44 Dose: 325 mg Finasteride (Proscar -) 5 mg PO DAILY [facility] Last Admin: 11/03/16 09:49 Dose: 5 mg Furosemide (Lasix Injection -) 80 mg IVPB BID@0600,1400 [facility] Last Admin: 11/04/16 06:48 Dose: 80 mg Gabapentin (Neurontin -) 300 mg PO BID [facility] Last Admin: 11/03/16 21:45 Dose: 300 mg Insulin Aspart (Novolog Vial Sliding Scale -) 1 vial SQ [facility] PRN Reason: Protocol Last Admin: 11/04/16 06:40 Dose: Not Given Insulin Detemir (Levemir Vial) 15 units SQ HS [facility] Last Admin: 11/03/16 21:45 Dose: 15 units Isosorbide Mononitrate (Imdur -) 30 mg PO DAILY [facility] Last Admin: 11/03/16 09:47 Dose: 30 mg Levetiracetam (Keppra -) 1,000 mg PO BID [facility] Last Admin: 11/03/16 21:44 Dose: 1,000 mg Lisinopril (Prinivil) 10 mg PO DAILY [facility] Last Admin: 11/03/16 09:48 Dose: 10 mg Methyl Salicylate (Girish-Mai -) 1 applic TP BID [facility] Last Admin: 11/03/16 21:56 Dose: 1 applic Mirtazapine (Remeron -) 15 mg PO HS [facility] Last Admin: 11/03/16 21:45 Dose: 15 mg Nifedipine (Procardia Xl -) 60 mg PO DAILY [facility] Last Admin: 11/03/16 09:49 Dose: 60 mg Pantoprazole Sodium (Protonix -) 40 mg PO DAILY [facility] Last Admin: 11/03/16 09:49 Dose: 40 mg Sitagliptin Phosphate (Januvia -) 50 mg PO DAILY@0700 [facility] Last Admin: 11/04/16 06:48 Dose: 50 mg Tamsulosin HCl (Flomax -) 0.4 mg PO DAILY@0830 [facility] Last Admin: 11/04/16 08:53 Dose: 0.4 mg - Objective Vital Signs: Vital Signs Temperature 98.6 F 11/04/16 06:00 Pulse Rate 60 11/04/16 06:00 Respiratory Rate 20 11/04/16 06:00 Blood Pressure 146/76 11/04/16 06:00 O2 Sat by Pulse Oximetry (%) 100 11/04/16 07:35 Constitutional: Yes: Anxious Eyes: Yes: WNL HENT: Yes: WNL Neck: Yes: WNL Cardiovascular: Yes: Pulse Irregular Respiratory: Yes: Diminished Gastrointestinal: Yes: Soft ...Rectal Exam: Yes: Deferred Genitourinary: No: Anuria Musculoskeletal: Yes: Muscle Weakness Extremities: Yes: Cool Edema: Yes Edema: LLE: Trace, RLE: Trace Peripheral Pulses WNL: No Peripheral Pulses: Left Doralis Pedis: 1+, Right Dorsalis Pedis: 1+ Neurological: Yes: Alert, Weakness Psychiatric: Yes: Other Labs: CBC, BMP 11/02/16 05:35 11/04/16 05:35 INR, PTT INR 1.19 (0.82-1.09) H D 11/01/16 13:09 Problem List - Problems (1) Acute respiratory disease Assessment/Plan: Bipap, bronchodilators, steroids, antibiotics per pulmonary and ID. Code(s): J06.9 - ACUTE UPPER RESPIRATORY INFECTION, UNSPECIFIED (2) Altered mental status Assessment/Plan: Resolved. Code(s): R41.82 - ALTERED MENTAL STATUS, UNSPECIFIED Qualifiers: Qualified Code(s): R41.0 - Disorientation, unspecified (3) Atrial flutter Code(s): I48.92 - UNSPECIFIED ATRIAL FLUTTER Qualifiers: Qualified Code(s): I48.92 - Unspecified atrial flutter (4) Dementia Code(s): F03.90 - UNSPECIFIED DEMENTIA WITHOUT BEHAVIORAL DISTURBANCE (5) Stented coronary artery Code(s): Z95.5 - PRESENCE OF CORONARY ANGIOPLASTY IMPLANT AND GRAFT (6) CVA (cerebral infarction) Code(s): I63.9 - CEREBRAL INFARCTION, UNSPECIFIED Qualifiers: Qualified Code(s): I63.9 - Cerebral infarction, unspecified (7) GERD (gastroesophageal reflux disease) Code(s): K21.9 - GASTRO-ESOPHAGEAL REFLUX DISEASE WITHOUT ESOPHAGITIS (8) HLD (hyperlipidemia) Code(s): E78.5 - HYPERLIPIDEMIA, UNSPECIFIED (9) HTN (hypertension) Code(s): I10 - ESSENTIAL (PRIMARY) HYPERTENSION Qualifiers: Qualified Code(s): I10 - Essential (primary) hypertension (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 Code(s): E11.610 - TYPE 2 DIABETES MELLITUS W DIABETIC NEUROPATHIC ARTHROPATHY Qualifiers: Qualified Code(s): E11.618 - Type 2 diabetes mellitus with other diabetic arthropathy; Z79.4 - penitentiary (current) use of insulin (11) Acute on chronic systolic and diastolic heart failure, NYHA class 1 Assessment/Plan: BNP >15,000 +JVP CXR: marked pulmonary vascular congestion and pleural effusion. Plan: Continue carvedillol, lisinopril; consider adding spironolactone (while carefully following BUN/Cr and electrolytes). If BP falls, may decrease or stop nifedipine. On furosemide. F/u daily weights. Code(s): I50.43 - ACUTE ON CHRONIC COMBINED SYSTOLIC AND DIASTOLIC HRT FAIL
[2016-11-04] MEDS: GABAPENTIN 300 MG CAPSULE (FP) PO SCH ×2 (09:38→21:35)
[2016-11-04] MEDS: FERROUS SO4 325 MG TABLET (FP) PO SCH ×2 (09:38→21:35)
[2016-11-04] MEDS: PANTOPRAZOLE 40 MG TABLET (FP) PO SCH (09:38)
[2016-11-04] MEDS: FINASTERIDE 5 MG TABLET (FP) PO SCH (09:39)
[2016-11-04] MEDS: ISOSORBIDE MONONITRATE 30 MG TAB.SR.24H (FP) PO SCH (09:39)
[2016-11-04] MEDS: ASPIRIN COATED 81 MG TABLET.EC PO SCH (09:39)
[2016-11-04] MEDS: CARVEDILOL 12.5 MG TABLET (FP) PO SCH ×2 (09:40→21:35)
[2016-11-04] MEDS: levETIRAcetam 500 MG TABLET (FP) PO SCH ×2 (09:40→21:35)
[2016-11-04] MEDS: CLOPIDOGREL BISULFATE 75 MG TABLET (FP) PO SCH (09:40)
[2016-11-04] MEDS: DONEPEZIL HCL 5 MG TABLET (FP) PO SCH (09:40)
[2016-11-04] MEDS: DOCUSATE SODIUM 100 MG CAPSULE (FP) PO SCH (09:41)
[2016-11-04] MEDS: METHYL SALICYLATE/MENTHOL OINT 30 GM TUBE TP SCH ×2 (09:41→21:37)
[2016-11-04] MEDS: LISINOPRIL 10 MG TABLET (FP) PO SCH (09:41)
[2016-11-04] MEDS: NIFEdipine E.R 60 MG TABLET (UD) PO SCH (09:42)
[2016-11-04] MEDS ORDERED: POTASSIUM CHLORIDE ORAL LIQUID 20 MEQ/15 ML PO ONE (12:15)
--- NOTE | 2016-11-04 14:56 | PN ---
Progress Note, Physician History of Present Illness: Pt seen and examined at bedside. He is awake and alert. He feels that his breathing is much improved today. He is still however using oxygen via [place]. - Current Medication List Current Medications: Active Medications Acetaminophen (Tylenol -) 650 mg PO Q6H PRN PRN Reason: FEVER OR PAIN Last Admin: 11/02/16 14:05 Dose: 650 mg Albuterol/Ipratropium (Duoneb -) 1 amp NEB Q6H PRN PRN Reason: SHORTNESS OF BREATH Last Admin: 11/03/16 10:53 Dose: 1 amp Aspirin (Ecotrin -) 81 mg PO DAILY [facility] Last Admin: 11/04/16 09:39 Dose: 81 mg Atorvastatin Calcium (Lipitor -) 10 mg PO HS [facility] Last Admin: 11/03/16 21:45 Dose: 10 mg Carvedilol (Coreg -) 12.5 mg PO BID [facility] Last Admin: 11/04/16 09:40 Dose: 12.5 mg Clopidogrel Bisulfate (Plavix -) 75 mg PO DAILY [facility] Last Admin: 11/04/16 09:40 Dose: 75 mg Docusate Sodium (Colace -) 100 mg PO DAILY [facility] Last Admin: 11/04/16 09:41 Dose: 100 mg Donepezil HCl (Aricept -) 5 mg PO DAILY [facility] Last Admin: 11/04/16 09:40 Dose: 5 mg Ergocalciferol (Drisdol -) 50,000 unit PO Q7D@1000 [facility] Ferrous Sulfate (Feosol -) 325 mg PO BID [facility] Last Admin: 11/04/16 09:38 Dose: 325 mg Finasteride (Proscar -) 5 mg PO DAILY [facility] Last Admin: 11/04/16 09:39 Dose: 5 mg Furosemide (Lasix Injection -) 80 mg IVPB BID@0600,1400 [facility] Last Admin: 11/04/16 13:44 Dose: 80 mg Gabapentin (Neurontin -) 300 mg PO BID [facility] Last Admin: 11/04/16 09:38 Dose: 300 mg Insulin Aspart (Novolog Vial Sliding Scale -) 1 vial SQ ACHS [facility] PRN Reason: Protocol Last Admin: 11/04/16 11:28 Dose: Not Given Insulin Detemir (Levemir Vial) 15 units SQ [facility] Last Admin: 11/03/16 21:45 Dose: 15 units Isosorbide Mononitrate (Imdur -) 30 mg PO DAILY [facility] Last Admin: 11/04/16 09:39 Dose: 30 mg Levetiracetam (Keppra -) 1,000 mg PO BID [facility] Last Admin: 11/04/16 09:40 Dose: 1,000 mg Lisinopril (Prinivil) 10 mg PO DAILY [facility] Last Admin: 11/04/16 09:41 Dose: 10 mg Methyl Salicylate (Girish-Mai -) 1 applic TP BID [facility] Last Admin: 11/04/16 09:41 Dose: 1 applic Mirtazapine (Remeron -) 15 mg PO HS [facility] Last Admin: 11/03/16 21:45 Dose: 15 mg Nifedipine (Procardia Xl -) 60 mg PO DAILY [facility] Last Admin: 11/04/16 09:42 Dose: 60 mg Pantoprazole Sodium (Protonix -) 40 mg PO DAILY [facility] Last Admin: 11/04/16 09:38 Dose: 40 mg Sitagliptin Phosphate (Januvia -) 50 mg PO DAILY@0700 [facility] Last Admin: 11/04/16 06:48 Dose: 50 mg Tamsulosin HCl (Flomax -) 0.4 mg PO DAILY@0830 [facility] Last Admin: 11/04/16 08:53 Dose: 0.4 mg - Objective Vital Signs: Vital Signs Temperature 97.4 F L 11/04/16 10:00 Pulse Rate 61 11/04/16 10:00 Respiratory Rate 20 11/04/16 10:00 Blood Pressure 129/66 11/04/16 10:00 O2 Sat by Pulse Oximetry (%) 100 11/04/16 07:35 Constitutional: Yes: Calm HENT: Yes: Atraumatic Cardiovascular: Yes: S1, S2 Respiratory: Yes: On Nasal O2 Gastrointestinal: Yes: Soft Genitourinary: Yes: WNL Edema: Yes Edema: LLE: Trace, RLE: Trace Integumentary: Yes: WNL Neurological: Yes: Oriented, Pre-Existing Deficit Labs: CBC, BMP 11/02/16 05:35 11/04/16 05:35 INR, PTT INR 1.19 (0.82-1.09) H D 11/01/16 13:09 Problem List - Problems (1) CHF (congestive heart failure) Code(s): I50.9 - HEART FAILURE, UNSPECIFIED Qualifiers: Qualified Code(s): I50.43 - Acute on chronic combined systolic ( congestive) and diastolic (congestive) heart failure (2) Stented coronary artery Code(s): Z95.5 - PRESENCE OF CORONARY ANGIOPLASTY IMPLANT AND GRAFT (3) CKD (chronic kidney disease) Code(s): N18.9 - CHRONIC KIDNEY DISEASE, UNSPECIFIED (4) COPD (chronic obstructive pulmonary disease) Code(s): J44.9 - CHRONIC OBSTRUCTIVE PULMONARY DISEASE, UNSPECIFIED Assessment/Plan Current Medications Generic Name Dose Route Start Last Admin Trade Name Freq PRN Reason Stop Dose Admin Acetaminophen 650 mg 11/01/16 19:45 11/02/16 14:05 Tylenol - PO 650 mg Q6H PRN Administration FEVER OR PAIN Albuterol/Ipratropium 1 amp 11/01/16 19:45 11/03/16 10:53 Duoneb - NEB 1 amp Q6H PRN Administration SHORTNESS OF BREATH Aspirin 81 mg 11/02/16 10:00 11/04/16 09:39 Ecotrin - PO 81 mg DAILY [facility] Administration Atorvastatin Calcium 10 mg 11/01/16 22:00 11/03/16 21:45 Lipitor - PO 10 mg HS [facility] Administration Carvedilol 12.5 mg 11/01/16 22:00 11/04/16 09:40 Coreg - PO 12.5 mg BID [facility] Administration Clopidogrel Bisulfate 75 mg 11/02/16 10:00 11/04/16 09:40 Plavix - PO 75 mg DAILY [facility] Administration Docusate Sodium 100 mg 11/02/16 10:00 11/04/16 09:41 Colace - PO 100 mg DAILY [facility] Administration Donepezil HCl 5 mg 11/02/16 10:00 11/04/16 09:40 Aricept - PO 5 mg DAILY [facility] Administration Ergocalciferol 50,000 unit 11/08/16 10:00 Drisdol - PO Q7D@1000 [facility] Ferrous Sulfate 325 mg 11/01/16 22:00 11/04/16 09:38 Feosol - PO 325 mg BID [facility] Administration Finasteride 5 mg 11/02/16 10:00 11/04/16 09:39 Proscar - PO 5 mg DAILY [facility] Administration Furosemide 80 mg 11/02/16 14:00 11/04/16 13:44 Lasix Injection - IVPB 80 mg BID@0600,1400 [facility] Administration Gabapentin 300 mg 11/01/16 22:00 11/04/16 09:38 Neurontin - PO 300 mg BID [facility] Administration Insulin Aspart 1 vial 11/01/16 22:00 11/04/16 11:28 Novolog Vial Sliding Scale - SQ Not Given ACHS [facility] Protocol Insulin Detemir 15 units 11/01/16 22:00 11/03/16 21:45 Levemir Vial SQ 15 units HS [facility] Administration Isosorbide Mononitrate 30 mg 11/02/16 10:00 11/04/16 09:39 Imdur - PO 30 mg DAILY [facility] Administration Levetiracetam 1,000 mg 11/01/16 22:00 11/04/16 09:40 Keppra - PO 1,000 mg BID [facility] Administration Lisinopril 10 mg 11/02/16 10:00 11/04/16 09:41 Prinivil PO 10 mg DAILY [facility] Administration Methyl Salicylate 1 applic 11/02/16 10:00 11/04/16 09:41 Girish-Mai - TP 1 applic BID [facility] Administration Mirtazapine 15 mg 11/01/16 22:00 11/03/16 21:45 Remeron - PO 15 mg HS [facility] Administration Nifedipine 60 mg 11/02/16 10:00 11/04/16 09:42 Procardia Xl - PO 60 mg DAILY [facility] Administration Pantoprazole Sodium 40 mg 11/02/16 10:00 11/04/16 09:38 Protonix - PO 40 mg DAILY [facility] Administration Sitagliptin Phosphate 50 mg 11/02/16 07:00 11/04/16 06:48 Januvia - PO 50 mg DAILY@0700 [facility] Administration Tamsulosin HCl 0.4 mg 11/02/16 08:30 11/04/16 08:53 Flomax - PO 0.4 mg DAILY@0830 [facility] Administration Impression 1. CKD 2. hypoxia 3. hx CVA 4. DM 5. epilepsy 6. hyperlipidemia 7. hx anemia 8. hx a-fib 9. hypokalemia 10. CAD 11. acute CHF Plan - can decrease dose of IV lasix to 60 bid - will need a higher dose on discharge - replace potassium - check mag level - will see pt in office after discharge - discussed plan with pts family - monitor on tele - can keep on michael - will follow Dr Jc
--- NOTE | 2016-11-04 17:45 | PN ---
Progress Note, Physician Chief Complaint: AWAKE ALERT FEELING BETTER STILL HAS DYSPNEA WITH AMBULATION/CHAIR - Current Medication List Current Medications: Active Medications Acetaminophen (Tylenol -) 650 mg PO Q6H PRN PRN Reason: FEVER OR PAIN Last Admin: 11/02/16 14:05 Dose: 650 mg Albuterol/Ipratropium (Duoneb -) 1 amp NEB Q6H PRN PRN Reason: SHORTNESS OF BREATH Last Admin: 11/03/16 10:53 Dose: 1 amp Aspirin (Ecotrin -) 81 mg PO DAILY [facility] Last Admin: 11/04/16 09:39 Dose: 81 mg Atorvastatin Calcium (Lipitor -) 10 mg PO HS [facility] Last Admin: 11/03/16 21:45 Dose: 10 mg Carvedilol (Coreg -) 12.5 mg PO BID [facility] Last Admin: 11/04/16 09:40 Dose: 12.5 mg Clopidogrel Bisulfate (Plavix -) 75 mg PO DAILY [facility] Last Admin: 11/04/16 09:40 Dose: 75 mg Docusate Sodium (Colace -) 100 mg PO DAILY [facility] Last Admin: 11/04/16 09:41 Dose: 100 mg Donepezil HCl (Aricept -) 5 mg PO DAILY [facility] Last Admin: 11/04/16 09:40 Dose: 5 mg Ergocalciferol (Drisdol -) 50,000 unit PO Q7D@1000 [facility] Ferrous Sulfate (Feosol -) 325 mg PO BID [facility] Last Admin: 11/04/16 09:38 Dose: 325 mg Finasteride (Proscar -) 5 mg PO DAILY [facility] Last Admin: 11/04/16 09:39 Dose: 5 mg Furosemide (Lasix Injection -) 60 mg IVPB BID@0600,1400 [facility] Gabapentin (Neurontin -) 300 mg PO BID [facility] Last Admin: 11/04/16 09:38 Dose: 300 mg Insulin Aspart (Novolog Vial Sliding Scale -) 1 vial SQ [facility] PRN Reason: Protocol Last Admin: 11/04/16 16:22 Dose: 4 units Insulin Detemir (Levemir Vial) 15 units SQ HS [facility] Last Admin: 11/03/16 21:45 Dose: 15 units Isosorbide Mononitrate (Imdur -) 30 mg PO DAILY [facility] Last Admin: 11/04/16 09:39 Dose: 30 mg Levetiracetam (Keppra -) 1,000 mg PO BID [facility] Last Admin: 11/04/16 09:40 Dose: 1,000 mg Lisinopril (Prinivil) 10 mg PO DAILY [facility] Last Admin: 11/04/16 09:41 Dose: 10 mg Methyl Salicylate (Girish-Mai -) 1 applic TP BID [facility] Last Admin: 11/04/16 09:41 Dose: 1 applic Mirtazapine (Remeron -) 15 mg PO HS [facility] Last Admin: 11/03/16 21:45 Dose: 15 mg Nifedipine (Procardia Xl -) 60 mg PO DAILY [facility] Last Admin: 11/04/16 09:42 Dose: 60 mg Pantoprazole Sodium (Protonix -) 40 mg PO DAILY [facility] Last Admin: 11/04/16 09:38 Dose: 40 mg Sitagliptin Phosphate (Januvia -) 50 mg PO DAILY@0700 [facility] Last Admin: 11/04/16 06:48 Dose: 50 mg Tamsulosin HCl (Flomax -) 0.4 mg PO DAILY@0830 [facility] Last Admin: 11/04/16 08:53 Dose: 0.4 mg - Objective Vital Signs: Vital Signs Temperature 97.4 F L 11/04/16 10:00 Pulse Rate 61 11/04/16 10:00 Respiratory Rate 20 11/04/16 10:00 Blood Pressure 129/66 11/04/16 10:00 O2 Sat by Pulse Oximetry (%) 100 11/04/16 07:35 Constitutional: Yes: Mild Distress Eyes: Yes: WNL HENT: Yes: WNL Neck: Yes: WNL Cardiovascular: Yes: Murmur Respiratory: Yes: Intubated, Poor Air Entry, SOB Gastrointestinal: Yes: WNL Musculoskeletal: Yes: Muscle Weakness Extremities: Yes: WNL Edema: Yes Edema: LLE: 1+, RLE: 1+ Peripheral Pulses WNL: Yes Integumentary: Yes: WNL Wound/Incision: Yes: Clean/Dry Neurological: Yes: Pre-Existing Deficit ...Motor Strength: LLE, RLE Psychiatric: Yes: Other Labs: CBC, BMP 11/02/16 05:35 11/04/16 05:35 INR, PTT INR 1.19 (0.82-1.09) H D 11/01/16 13:09 Problem List - Problems (1) Acute on chronic respiratory failure with hypoxia and hypercapnia Code(s): J96.21 - ACUTE AND CHRONIC RESPIRATORY FAILURE WITH HYPOXIA J96.22 - ACUTE AND CHRONIC RESPIRATORY FAILURE WITH HYPERCAPNIA (2) Acute on chronic systolic and diastolic heart failure, NYHA class 1 Code(s): I50.43 - ACUTE ON CHRONIC COMBINED SYSTOLIC AND DIASTOLIC HRT FAIL (3) Acute respiratory disease Code(s): J06.9 - ACUTE UPPER RESPIRATORY INFECTION, UNSPECIFIED (4) Atrial flutter Code(s): I48.92 - UNSPECIFIED ATRIAL FLUTTER Qualifiers: Qualified Code(s): I48.92 - Unspecified atrial flutter (5) Atypical chest pain Code(s): R07.89 - OTHER CHEST PAIN (6) Chronic systolic CHF (congestive heart failure) Code(s): I50.22 - CHRONIC SYSTOLIC (CONGESTIVE) HEART FAILURE (7) Pacemaker Code(s): Z95.0 - PRESENCE OF CARDIAC PACEMAKER (8) Acute on chronic renal failure Code(s): N17.9 - ACUTE KIDNEY FAILURE, UNSPECIFIED N18.9 - CHRONIC KIDNEY DISEASE, UNSPECIFIED (9) Acute on chronic systolic (congestive) heart failure Code(s): I50.23 - ACUTE ON CHRONIC SYSTOLIC (CONGESTIVE) HEART FAILURE (10) Acute respiratory failure Code(s): J96.00 - ACUTE RESPIRATORY FAILURE, UNSP W HYPOXIA OR HYPERCAPNIA (11) Diabetes mellitus Code(s): E11.9 - TYPE 2 DIABETES MELLITUS WITHOUT COMPLICATIONS Qualifiers: Qualified Code(s): E10.65 - Type 1 diabetes mellitus with hyperglycemia (12) HTN (hypertension) Code(s): I10 - ESSENTIAL (PRIMARY) HYPERTENSION Qualifiers: Qualified Code(s): I10 - Essential (primary) hypertension Assessment/Plan ACUTE CHF IV LASIX INCREASED RENAL AND CARDIOLOGY EVAL MONITOR LABS MONITOR OUTPUT DAILY [facility] 02 SUPPORT PATIENT IS NOT FOLLOWING A CHF/ADA/RENAL DIET DIETARY EVAL, EATING HOT DOGS BROUGHT FROM HOME BY THE FAMILY SNF BACK TO [facility] ON DISCHARGE MONDAY
[2016-11-04] MEDS: ATORVASTATIN CA 10 MG TABLET (FP) PO SCH (21:35)
[2016-11-04] MEDS: MIRTAZAPINE 15 MG TABLET (FP) PO SCH (21:35)
[2016-11-04] MEDS: INSULIN DETEMIR 100 UNITS/ML MDV SQ SCH (21:37)
[2016-11-04] MEDS: ALBUTEROL SO4 2.5/IPRATROPIUM 0.5 INH SOL 3 ML VIAL.NEB. NEB PRN (22:30)
[2016-11-05] MEDS: FUROSEMIDE 100 MG/10 ML INJECTABLE VIAL IVPB SCH ×2 (06:41→15:06)
[2016-11-05] MEDS: INSULIN SLIDING SCALE (NOVOLOG) 1 VIAL SQ SCH ×4 (06:41→22:17)
[2016-11-05] MEDS: sitaGLIPtin PHOSPHATE 50 MG TABLET PO SCH (06:41)
[2016-11-05 08:16] LABS: COCKROFT - GAULT 40.77; MAGNESIUM 2.1 mg/dL (1.8-2.4)
[2016-11-05] MEDS: TAMSULOSIN HCL 0.4 MG CAP.ER.24H (FP) PO SCH (08:55)
--- NOTE | 2016-11-05 09:38 | PN ---
Progress Note, Physician - Current Medication List Current Medications: Active Medications Acetaminophen (Tylenol -) 650 mg PO Q6H PRN PRN Reason: FEVER OR PAIN Last Admin: 11/02/16 14:05 Dose: 650 mg Albuterol/Ipratropium (Duoneb -) 1 amp NEB Q6H PRN PRN Reason: SHORTNESS OF BREATH Last Admin: 11/04/16 22:30 Dose: 1 amp Aspirin (Ecotrin -) 81 mg PO DAILY [facility] Last Admin: 11/04/16 09:39 Dose: 81 mg Atorvastatin Calcium (Lipitor -) 10 mg PO HS [facility] Last Admin: 11/04/16 21:35 Dose: 10 mg Carvedilol (Coreg -) 12.5 mg PO BID [facility] Last Admin: 11/04/16 21:35 Dose: 12.5 mg Clopidogrel Bisulfate (Plavix -) 75 mg PO DAILY [facility] Last Admin: 11/04/16 09:40 Dose: 75 mg Docusate Sodium (Colace -) 100 mg PO DAILY [facility] Last Admin: 11/04/16 09:41 Dose: 100 mg Donepezil HCl (Aricept -) 5 mg PO DAILY [facility] Last Admin: 11/04/16 09:40 Dose: 5 mg Ergocalciferol (Drisdol -) 50,000 unit PO Q7D@1000 [facility] Ferrous Sulfate (Feosol -) 325 mg PO BID [facility] Last Admin: 11/04/16 21:35 Dose: 325 mg Finasteride (Proscar -) 5 mg PO DAILY [facility] Last Admin: 11/04/16 09:39 Dose: 5 mg Furosemide (Lasix Injection -) 60 mg IVPB BID@0600,1400 [facility] Last Admin: 11/05/16 06:41 Dose: 60 mg Gabapentin (Neurontin -) 300 mg PO BID [facility] Last Admin: 11/04/16 21:35 Dose: 300 mg Insulin Aspart (Novolog Vial Sliding Scale -) 1 vial SQ [facility] PRN Reason: Protocol Last Admin: 11/05/16 06:41 Dose: Not Given Insulin Detemir (Levemir Vial) 15 units SQ HS [facility] Last Admin: 11/04/16 21:37 Dose: 15 units Isosorbide Mononitrate (Imdur -) 30 mg PO DAILY [facility] Last Admin: 11/04/16 09:39 Dose: 30 mg Levetiracetam (Keppra -) 1,000 mg PO BID [facility] Last Admin: 11/04/16 21:35 Dose: 1,000 mg Lisinopril (Prinivil) 10 mg PO DAILY [facility] Last Admin: 11/04/16 09:41 Dose: 10 mg Methyl Salicylate (Girish-Mai -) 1 applic TP BID [facility] Last Admin: 11/04/16 21:37 Dose: 1 applic Mirtazapine (Remeron -) 15 mg PO HS [facility] Last Admin: 11/04/16 21:35 Dose: 15 mg Nifedipine (Procardia Xl -) 60 mg PO DAILY [facility] Last Admin: 11/04/16 09:42 Dose: 60 mg Pantoprazole Sodium (Protonix -) 40 mg PO DAILY [facility] Last Admin: 11/04/16 09:38 Dose: 40 mg Sitagliptin Phosphate (Januvia -) 50 mg PO DAILY@0700 [facility] Last Admin: 11/05/16 06:41 Dose: 50 mg Tamsulosin HCl (Flomax -) 0.4 mg PO DAILY@0830 [facility] Last Admin: 11/04/16 08:53 Dose: 0.4 mg - Objective Vital Signs: Vital Signs Temperature 98.0 F 11/05/16 06:39 Pulse Rate 60 11/05/16 06:39 Respiratory Rate 20 11/05/16 06:39 Blood Pressure 150/70 11/05/16 06:39 O2 Sat by Pulse Oximetry (%) 97 11/05/16 06:40 Constitutional: Yes: Calm Neck: Yes: WNL Cardiovascular: Yes: WNL Respiratory: Yes: Wheezes Gastrointestinal: Yes: WNL Labs: CBC, BMP 11/02/16 05:35 11/05/16 05:35 INR, PTT INR 1.19 (0.82-1.09) H D 11/01/16 13:09 Assessment/Plan (1) Acute on chronic respiratory failure with hypoxia and hypercapnia Code(s): J96.21 - ACUTE AND CHRONIC RESPIRATORY FAILURE WITH HYPOXIA J96.22 - ACUTE AND CHRONIC RESPIRATORY FAILURE WITH HYPERCAPNIA (2) Acute on chronic systolic and diastolic heart failure, NYHA class 1 Code(s): I50.43 - ACUTE ON CHRONIC COMBINED SYSTOLIC AND DIASTOLIC HRT FAIL (3) Acute respiratory disease Code(s): J06.9 - ACUTE UPPER RESPIRATORY INFECTION, UNSPECIFIED (4) Atrial flutter Code(s): I48.92 - UNSPECIFIED ATRIAL FLUTTER Qualifiers: Qualified Code(s): I48.92 - Unspecified atrial flutter (5) Atypical chest pain Code(s): R07.89 - OTHER CHEST PAIN (6) Chronic systolic CHF (congestive heart failure) Code(s): I50.22 - CHRONIC SYSTOLIC (CONGESTIVE) HEART FAILURE (7) Pacemaker Code(s): Z95.0 - PRESENCE OF CARDIAC PACEMAKER (8) Acute on chronic renal failure Code(s): N17.9 - ACUTE KIDNEY FAILURE, UNSPECIFIED N18.9 - CHRONIC KIDNEY DISEASE, UNSPECIFIED (9) Acute on chronic systolic (congestive) heart failure Code(s): I50.23 - ACUTE ON CHRONIC SYSTOLIC (CONGESTIVE) HEART FAILURE (10) Acute respiratory failure Code(s): J96.00 - ACUTE RESPIRATORY FAILURE, UNSP W HYPOXIA OR HYPERCAPNIA (11) Diabetes mellitus Code(s): E11.9 - TYPE 2 DIABETES MELLITUS WITHOUT COMPLICATIONS Qualifiers: Qualified Code(s): E10.65 - Type 1 diabetes mellitus with hyperglycemia (12) HTN (hypertension) Code(s): I10 - ESSENTIAL (PRIMARY) HYPERTENSION Qualifiers: Qualified Code(s): I10 - Essential (primary) hypertension Assessment/Plan ACUTE CHF IV LASIX RENAL AND CARDIOLOGY EVAL MONITOR LABS MONITOR OUTPUT DAILY [facility] 02 SUPPORT PATIENT IS NOT FOLLOWING A CHF/ADA/RENAL DIET DIETARY EVAL, EATING HOT DOGS BROUGHT FROM HOME BY THE FAMILY -> NUTRITION ON CASE SNF BACK TO [facility] ON DISCHARGE MONDAY PASTOR JORGENSEN
[2016-11-05] MEDS: METHYL SALICYLATE/MENTHOL OINT 30 GM TUBE TP SCH ×2 (10:10→22:17)
[2016-11-05] MEDS: DOCUSATE SODIUM 100 MG CAPSULE (FP) PO SCH (10:30)
[2016-11-05] MEDS: CLOPIDOGREL BISULFATE 75 MG TABLET (FP) PO SCH (10:30)
[2016-11-05] MEDS: ISOSORBIDE MONONITRATE 30 MG TAB.SR.24H (FP) PO SCH (10:31)
[2016-11-05] MEDS: GABAPENTIN 300 MG CAPSULE (FP) PO SCH ×2 (10:31→22:12)
[2016-11-05] MEDS: FINASTERIDE 5 MG TABLET (FP) PO SCH (10:31)
[2016-11-05] MEDS: ASPIRIN COATED 81 MG TABLET.EC PO SCH (10:31)
[2016-11-05] MEDS: NIFEdipine E.R 60 MG TABLET (UD) PO SCH (10:31)
[2016-11-05] MEDS: CARVEDILOL 12.5 MG TABLET (FP) PO SCH ×2 (10:31→22:12)
[2016-11-05] MEDS: PANTOPRAZOLE 40 MG TABLET (FP) PO SCH (10:31)
[2016-11-05] MEDS: FERROUS SO4 325 MG TABLET (FP) PO SCH ×2 (10:31→22:12)
[2016-11-05] MEDS: LISINOPRIL 10 MG TABLET (FP) PO SCH (10:31)
[2016-11-05] MEDS: DONEPEZIL HCL 5 MG TABLET (FP) PO SCH (10:31)
[2016-11-05] MEDS: levETIRAcetam 500 MG TABLET (FP) PO SCH ×2 (10:31→22:12)
--- NOTE | 2016-11-05 11:09 | PN ---
Progress Note (short form) - Note Progress Note: PULMONARY CHART REVIEWED VSS ANICTERIC DISTANT BREATH SOUNDS/SCATTERED CRACKLES S1S2 BS+ BILATERAL SCD'S LABS/MEDS/NOTES/IMAGING REVIEWED (1) Acute on chronic systolic and diastolic heart failure, NYHA class 1 Code(s): I50.43 - ACUTE ON CHRONIC COMBINED SYSTOLIC AND DIASTOLIC HRT FAIL (2) Acute respiratory disease Code(s): J06.9 - ACUTE UPPER RESPIRATORY INFECTION, UNSPECIFIED (3) Altered mental status Code(s): R41.82 - ALTERED MENTAL STATUS, UNSPECIFIED Qualifiers: Altered mental status type: disorientation Qualified Code(s): R41.0 - Disorientation, unspecified (4) Atypical chest pain Code(s): R07.89 - OTHER CHEST PAIN (5) CHF (congestive heart failure) Code(s): I50.9 - HEART FAILURE, UNSPECIFIED Qualifiers: Congestive heart failure type: combined Congestive heart failure chronicity: acute on chronic Qualified Code(s): I50.43 - Acute on chronic combined systolic (congestive) and diastolic (congestive) heart failure (6) Dementia Code(s): F03.90 - UNSPECIFIED DEMENTIA WITHOUT BEHAVIORAL DISTURBANCE Qualifiers: Dementia behavioral disturbance: without behavioral disturbance (7) Epilepsy Code(s): G40.909 - EPILEPSY, UNSP, NOT INTRACTABLE, WITHOUT STATUS EPILEPTICUS (8) Stented coronary artery Code(s): Z95.5 - PRESENCE OF CORONARY ANGIOPLASTY IMPLANT AND GRAFT (9) ASHD (arteriosclerotic heart disease) Code(s): I25.10 - ATHSCL HEART DISEASE OF [place] CORONARY ARTERY W/O ANG PCTRS (10) Acute respiratory failure Code(s): J96.00 - ACUTE RESPIRATORY FAILURE, UNSP W HYPOXIA OR HYPERCAPNIA (11) CKD (chronic kidney disease) Code(s): N18.9 - CHRONIC KIDNEY DISEASE, UNSPECIFIED (12) CVA (cerebral vascular accident) Code(s): I63.9 - CEREBRAL INFARCTION, UNSPECIFIED Qualifiers: Precerebral and cerebral artery: unspecified precerebral artery (13) Chest pain Code(s): R07.9 - CHEST PAIN, UNSPECIFIED Qualifiers: Chest pain type: precordial chest pain (14) Diabetes mellitus Code(s): E11.9 - TYPE 2 DIABETES MELLITUS WITHOUT COMPLICATIONS Qualifiers: Diabetes mellitus type: type 1 Diabetes mellitus complication status: with hyperglycemia Qualified Code(s): E10.65 - Type 1 diabetes mellitus with hyperglycemia (15) Difficulty breathing Code(s): R06.89 - OTHER ABNORMALITIES OF BREATHING (16) GERD (gastroesophageal reflux disease) Code(s): K21.9 - GASTRO-ESOPHAGEAL REFLUX DISEASE WITHOUT ESOPHAGITIS (17) HLD (hyperlipidemia) Code(s): E78.5 - HYPERLIPIDEMIA, UNSPECIFIED (18) HTN (hypertension) Code(s): I10 - ESSENTIAL (PRIMARY) HYPERTENSION Qualifiers: Hypertension type: essential hypertension Qualified Code(s): I10 - Essential (primary) hypertension (19) Hypoxia Code(s): R09.02 - HYPOXEMIA (20) Seizure disorder Code(s): G40.909 - EPILEPSY, UNSP, NOT INTRACTABLE, WITHOUT STATUS EPILEPTICUS (21) Acute on chronic respiratory failure with hypoxia and hypercapnia Code(s): J96.21 - ACUTE AND CHRONIC RESPIRATORY FAILURE WITH HYPOXIA J96.22 - ACUTE AND CHRONIC RESPIRATORY FAILURE WITH HYPERCAPNIA PLAN LASIX BIPAP alternating with NC O2 INHALED BRONCHODILATORS MONITOR LYTES DAILY WTS VTE PROPHYLAXIS Jean HARRINGTON MD
--- NOTE | 2016-11-05 13:24 | PN ---
Progress Note (short form) - Note Progress Note: RENAL Pt is awake and alert comfortable daughter and grandson present says he remembers me Last Vital Signs Temp Pulse Resp BP Pulse Ox 97.3 F L 84 18 161/59 97 11/05/16 10:28 11/05/16 10:28 11/05/16 10:28 11/05/16 10:28 11/05/16 06:40 lungs crackles at bases heard [facility] s1s2 rr abd soft ext +edema neuro a+ox3 CBC, BMP 11/02/16 05:35 11/05/16 05:35 Current Medications Generic Name Dose Route Start Last Admin Trade Name Freq PRN Reason Stop Dose Admin Acetaminophen 650 mg 11/01/16 19:45 11/02/16 14:05 Tylenol - PO 650 mg Q6H PRN Administration FEVER OR PAIN Albuterol/Ipratropium 1 amp 11/01/16 19:45 11/04/16 22:30 Duoneb - NEB 1 amp Q6H PRN Administration SHORTNESS OF BREATH Aspirin 81 mg 11/02/16 10:00 11/05/16 10:31 Ecotrin - PO 81 mg DAILY [facility] Administration Atorvastatin Calcium 10 mg 11/01/16 22:00 11/04/16 21:35 Lipitor - PO 10 mg HS [facility] Administration Carvedilol 12.5 mg 11/01/16 22:00 11/05/16 10:31 Coreg - PO 12.5 mg BID [facility] Administration Clopidogrel Bisulfate 75 mg 11/02/16 10:00 11/05/16 10:30 Plavix - PO 75 mg DAILY [facility] Administration Docusate Sodium 100 mg 11/02/16 10:00 11/05/16 10:30 Colace - PO 100 mg DAILY [facility] Administration Donepezil HCl 5 mg 11/02/16 10:00 11/05/16 10:31 Aricept - PO 5 mg DAILY [facility] Administration Ergocalciferol 50,000 unit 11/08/16 10:00 Drisdol - PO Q7D@1000 [facility] Ferrous Sulfate 325 mg 11/01/16 22:00 11/05/16 10:31 Feosol - PO 325 mg BID [facility] Administration Finasteride 5 mg 11/02/16 10:00 11/05/16 10:31 Proscar - PO 5 mg DAILY [facility] Administration Furosemide 60 mg 11/05/16 06:00 11/05/16 06:41 Lasix Injection - IVPB 60 mg BID@0600,1400 [facility] Administration Gabapentin 300 mg 11/01/16 22:00 11/05/16 10:31 Neurontin - PO 300 mg BID [facility] Administration Insulin Aspart 1 vial 11/01/16 22:00 11/05/16 12:09 Novolog Vial Sliding Scale - SQ 2 units ACHS [facility] Administration Protocol Insulin Detemir 15 units 11/01/16 22:00 11/04/16 21:37 Levemir Vial SQ 15 units HS [facility] Administration Isosorbide Mononitrate 30 mg 11/02/16 10:00 11/05/16 10:31 Imdur - PO 30 mg DAILY PASCUAL Administration Levetiracetam 1,000 mg 11/01/16 22:00 11/05/16 10:31 Keppra - PO 1,000 mg BID PASCUAL Administration Lisinopril 10 mg 11/02/16 10:00 11/05/16 10:31 Prinivil PO 10 mg DAILY PASCUAL Administration Methyl Salicylate 1 applic 11/02/16 10:00 11/05/16 10:10 Girish-Mai - TP 1 applic BID PASCUAL Administration Mirtazapine 15 mg 11/01/16 22:00 11/04/16 21:35 Remeron - PO 15 mg HS PASCUAL Administration Nifedipine 60 mg 11/02/16 10:00 11/05/16 10:31 Procardia Xl - PO 60 mg DAILY PASCUAL Administration Pantoprazole Sodium 40 mg 11/02/16 10:00 11/05/16 10:31 Protonix - PO 40 mg DAILY PASCUAL Administration Sitagliptin Phosphate 50 mg 11/02/16 07:00 11/05/16 06:41 Januvia - PO 50 mg DAILY@0700 PASCUAL Administration Tamsulosin HCl 0.4 mg 11/02/16 08:30 11/05/16 08:55 Flomax - PO 0.4 mg DAILY@0830 PASCUAL Administration Impression 1. CKD 2. hypoxia 3. hx CVA 4. DM 5. epilepsy 6. hyperlipidemia 7. hx anemia 8. hx a-fib 9. hypokalemia 10. CAD 11. acute CHF Plan -continue to diurese. HE still has crackles at bases monitor renal function dc PPI or change to prn MV
--- NOTE | 2016-11-05 14:41 | PN ---
Progress Note, Physician Chief Complaint: Pt Alert; denies chest pain or dyspnea. Pt's daughter is at bedside. History of Present Illness: The patient is a 62-year-old man (b. [place]), accompanied by and daughter, with a significant past medical history severe systolic heart failure- ->ICD, CAD-->PCI, hypertension, chronic obstructive pulmonary disease ( requiring intubation on 2005), emphysema, ?dementia, who presents to the emergency department via EMS for further evaluation of shortness of breath. HPI limited as patient arrives in severe respiratory distress. As per patient's , his symptoms started approximately 1 month ago with an intermittent productive cough with yellow-green sputum. She states that his symptoms worsened over the the past 3 days, as he became increasingly short of breath. EMS was activated today, and on arrival, the patient was noted to be in the low 90s on a non-rebreather and was found to have diffuse expiratory wheezes in the field, and was in respiratory distress. He was given 10 milligrams of Decadron and received a second Combivent. He was also placed on BiPAP, with noted improvement of his shortness of breath and oxygen saturation of 98%. No fever, chills, sick contacts. History provided by EMS, old records and pts who is with him Daughter and say pt has shown little response over the past 2 hours; prior to that, he was talking. Allergies: No Known Drug Allergies. Past Surgical History: None reported Social History: Former cigarette use. No ETOH and recreational drug use. Primary Care Physician: Dr. Damaris Bautista Crystallographer: Dr. Saqib Galaviz (Affiliated with [facility]) - Current Medication List Current Medications: Active Medications Acetaminophen (Tylenol -) 650 mg PO Q6H PRN PRN Reason: FEVER OR PAIN Last Admin: 11/02/16 14:05 Dose: 650 mg Albuterol/Ipratropium (Duoneb -) 1 amp NEB Q6H PRN PRN Reason: SHORTNESS OF BREATH Last Admin: 11/04/16 22:30 Dose: 1 amp Aspirin (Ecotrin -) 81 mg PO DAILY [facility] Last Admin: 11/05/16 10:31 Dose: 81 mg Atorvastatin Calcium (Lipitor -) 10 mg PO HS [facility] Last Admin: 11/04/16 21:35 Dose: 10 mg Carvedilol (Coreg -) 12.5 mg PO BID [facility] Last Admin: 11/05/16 10:31 Dose: 12.5 mg Clopidogrel Bisulfate (Plavix -) 75 mg PO DAILY [facility] Last Admin: 11/05/16 10:30 Dose: 75 mg Docusate Sodium (Colace -) 100 mg PO DAILY [facility] Last Admin: 11/05/16 10:30 Dose: 100 mg Donepezil HCl (Aricept -) 5 mg PO DAILY [facility] Last Admin: 11/05/16 10:31 Dose: 5 mg Ergocalciferol (Drisdol -) 50,000 unit PO Q7D@1000 [facility] Ferrous Sulfate (Feosol -) 325 mg PO BID [facility] Last Admin: 11/05/16 10:31 Dose: 325 mg Finasteride (Proscar -) 5 mg PO DAILY [facility] Last Admin: 11/05/16 10:31 Dose: 5 mg Furosemide (Lasix Injection -) 60 mg IVPB BID@0600,1400 [facility] Last Admin: 11/05/16 06:41 Dose: 60 mg Gabapentin (Neurontin -) 300 mg PO BID [facility] Last Admin: 11/05/16 10:31 Dose: 300 mg Insulin Aspart (Novolog Vial Sliding Scale -) 1 vial SQ [facility] PRN Reason: Protocol Last Admin: 11/05/16 12:09 Dose: 2 units Insulin Detemir (Levemir Vial) 15 units SQ [facility] Last Admin: 11/04/16 21:37 Dose: 15 units Isosorbide Mononitrate (Imdur -) 30 mg PO DAILY [facility] Last Admin: 11/05/16 10:31 Dose: 30 mg Levetiracetam (Keppra -) 1,000 mg PO BID [facility] Last Admin: 11/05/16 10:31 Dose: 1,000 mg Lisinopril (Prinivil) 10 mg PO DAILY [facility] Last Admin: 11/05/16 10:31 Dose: 10 mg Methyl Salicylate (Girish-Mai -) 1 applic TP BID [facility] Last Admin: 11/05/16 10:10 Dose: 1 applic Mirtazapine (Remeron -) 15 mg PO HS [facility] Last Admin: 11/04/16 21:35 Dose: 15 mg Nifedipine (Procardia Xl -) 60 mg PO DAILY [facility] Last Admin: 11/05/16 10:31 Dose: 60 mg Pantoprazole Sodium (Protonix -) 40 mg PO DAILY [facility] Last Admin: 11/05/16 10:31 Dose: 40 mg Sitagliptin Phosphate (Januvia -) 50 mg PO DAILY@0700 [facility] Last Admin: 11/05/16 06:41 Dose: 50 mg Tamsulosin HCl (Flomax -) 0.4 mg PO DAILY@0830 [facility] Last Admin: 11/05/16 08:55 Dose: 0.4 mg - Objective Vital Signs: Vital Signs Temperature 97.3 F L 11/05/16 10:28 Pulse Rate 84 11/05/16 10:28 Respiratory Rate 18 11/05/16 10:28 Blood Pressure 161/59 11/05/16 10:28 O2 Sat by Pulse Oximetry (%) 96 11/05/16 09:00 Constitutional: Yes: Calm Eyes: Yes: WNL HENT: Yes: WNL Neck: Yes: WNL Cardiovascular: Yes: Pulse Irregular Respiratory: Yes: Regular Gastrointestinal: Yes: Soft ...Rectal Exam: Yes: Deferred Genitourinary: No: Anuria Musculoskeletal: Yes: Muscle Weakness Extremities: Yes: Cool Edema: No Peripheral Pulses WNL: No Peripheral Pulses: Left Doralis Pedis: 1+, Right Dorsalis Pedis: 1+ Neurological: Yes: Alert, Weakness Psychiatric: Yes: Other Labs: CBC, BMP 11/02/16 05:35 11/05/16 05:35 INR, PTT INR 1.19 (0.82-1.09) H D 11/01/16 13:09 Abnormal Lab Results 11/05/16 05:35 Carbon Dioxide 40 H Anion Gap 6 L BUN 37 H Creatinine 2.0 H Random Glucose 159 H D Calcium 8.0 L Problem List - Problems (1) Acute respiratory disease Assessment/Plan: Bipap, bronchodilators, steroids, antibiotics per pulmonary and ID. Code(s): J06.9 - ACUTE UPPER RESPIRATORY INFECTION, UNSPECIFIED (2) Atrial flutter Assessment/Plan: on carvedilol for HR control (and systolic CHF). On ASA and clopidogrel (CAD; ?hx GI bleed precludes addtion of anticoagulant). Code(s): I48.92 - UNSPECIFIED ATRIAL FLUTTER Qualifiers: Qualified Code(s): I48.92 - Unspecified atrial flutter (3) Altered mental status Assessment/Plan: Resolved. Code(s): R41.82 - ALTERED MENTAL STATUS, UNSPECIFIED Qualifiers: Qualified Code(s): R41.0 - Disorientation, unspecified (4) Stented coronary artery Code(s): Z95.5 - PRESENCE OF CORONARY ANGIOPLASTY IMPLANT AND GRAFT (5) CVA (cerebral infarction) Code(s): I63.9 - CEREBRAL INFARCTION, UNSPECIFIED Qualifiers: Qualified Code(s): I63.9 - Cerebral infarction, unspecified (6) GERD (gastroesophageal reflux disease) Code(s): K21.9 - GASTRO-ESOPHAGEAL REFLUX DISEASE WITHOUT ESOPHAGITIS (7) HLD (hyperlipidemia) Code(s): E78.5 - HYPERLIPIDEMIA, UNSPECIFIED (8) HTN (hypertension) Code(s): I10 - ESSENTIAL (PRIMARY) HYPERTENSION Qualifiers: Qualified Code(s): I10 - Essential (primary) hypertension (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 Code(s): E11.610 - TYPE 2 DIABETES MELLITUS W DIABETIC NEUROPATHIC ARTHROPATHY Qualifiers: Qualified Code(s): E11.618 - Type 2 diabetes mellitus with other diabetic arthropathy; Z79.4 - exterminator helper (current) use of insulin (10) Acute on chronic systolic and diastolic heart failure, NYHA class 1 Assessment/Plan: BNP >15,000 +JVP CXR: marked pulmonary vascular congestion and pleural effusion. Plan: Continue carvedillol, lisinopril; consider adding spironolactone (while carefully following BUN/Cr and electrolytes). If BP falls, may decrease or stop nifedipine. On furosemide. F/u daily weights. Code(s): I50.43 - ACUTE ON CHRONIC COMBINED SYSTOLIC AND DIASTOLIC HRT FAIL
[2016-11-05] MEDS: ACETAMINOPHEN 325 MG TABLET (FP) PO PRN (18:54)
[2016-11-05] MEDS: MIRTAZAPINE 15 MG TABLET (FP) PO SCH (22:12)
[2016-11-05] MEDS: ATORVASTATIN CA 10 MG TABLET (FP) PO SCH (22:12)
[2016-11-05] MEDS: INSULIN DETEMIR 100 UNITS/ML MDV SQ SCH (22:16)
[2016-11-06] MEDS: sitaGLIPtin PHOSPHATE 50 MG TABLET PO SCH (06:24)
[2016-11-06] MEDS: FUROSEMIDE 100 MG/10 ML INJECTABLE VIAL IVPB SCH ×2 (06:27→15:08)
[2016-11-06] MEDS: INSULIN SLIDING SCALE (NOVOLOG) 1 VIAL SQ SCH ×4 (06:28→21:35)
[2016-11-06 08:02] LABS: BASOPHIL 0.3 % (0-2.0); EOSINOPHIL 6.6 % (0-4.5); MCH 24.5 pg (25.7-33.7); MCHC 31.1 g/dl (32.0-35.9); MEAN CELL VOLUME 78.7 fl (80-96); MEAN PLT VOLUME 8.9 fl (7.5-11.1); NEUTROPHILS 67.7 % (42.8-82.8); PLATELET COUNT 158 K/MM3 (134-434); RDW 18.2 % (11.9-15.9); WHITE BLOOD COUNT 6.1 K/mm3 (4.0-10.0)
--- NOTE | 2016-11-06 08:15 | PN ---
Progress Note, Physician Chief Complaint: HAD D/W FAMILY & PATIENT DO NOT WANT TO GO BACK TO SNF WANT TO GO HOME WITH HOME SERVICES FAMILY ADMITS TO POOR DIET -> WILL TRY HARDER - Current Medication List Current Medications: Active Medications Acetaminophen (Tylenol -) 650 mg PO Q6H PRN PRN Reason: FEVER OR PAIN Last Admin: 11/05/16 18:54 Dose: 650 mg Albuterol/Ipratropium (Duoneb -) 1 amp NEB Q6H PRN PRN Reason: SHORTNESS OF BREATH Last Admin: 11/04/16 22:30 Dose: 1 amp Aspirin (Ecotrin -) 81 mg PO DAILY [facility] Last Admin: 11/05/16 10:31 Dose: 81 mg Atorvastatin Calcium (Lipitor -) 10 mg PO HS [facility] Last Admin: 11/05/16 22:12 Dose: 10 mg Carvedilol (Coreg -) 12.5 mg PO BID [facility] Last Admin: 11/05/16 22:12 Dose: 12.5 mg Clopidogrel Bisulfate (Plavix -) 75 mg PO DAILY [facility] Last Admin: 11/05/16 10:30 Dose: 75 mg Docusate Sodium (Colace -) 100 mg PO DAILY [facility] Last Admin: 11/05/16 10:30 Dose: 100 mg Donepezil HCl (Aricept -) 5 mg PO DAILY [facility] Last Admin: 11/05/16 10:31 Dose: 5 mg Ergocalciferol (Drisdol -) 50,000 unit PO Q7D@1000 [facility] Ferrous Sulfate (Feosol -) 325 mg PO BID [facility] Last Admin: 11/05/16 22:12 Dose: 325 mg Finasteride (Proscar -) 5 mg PO DAILY [facility] Last Admin: 11/05/16 10:31 Dose: 5 mg Furosemide (Lasix Injection -) 60 mg IVPB BID@0600,1400 [facility] Last Admin: 11/06/16 06:27 Dose: 60 mg Gabapentin (Neurontin -) 300 mg PO BID [facility] Last Admin: 11/05/16 22:12 Dose: 300 mg Insulin Aspart (Novolog Vial Sliding Scale -) 1 vial SQ ACHS [facility] PRN Reason: Protocol Last Admin: 11/06/16 06:28 Dose: Not Given Insulin Detemir (Levemir Vial) 15 units SQ [facility] Last Admin: 11/05/16 22:16 Dose: 15 units Isosorbide Mononitrate (Imdur -) 30 mg PO DAILY [facility] Last Admin: 11/05/16 10:31 Dose: 30 mg Levetiracetam (Keppra -) 1,000 mg PO BID [facility] Last Admin: 11/05/16 22:12 Dose: 1,000 mg Lisinopril (Prinivil) 10 mg PO DAILY [facility] Last Admin: 11/05/16 10:31 Dose: 10 mg Methyl Salicylate (Girish-Mai -) 1 applic TP BID [facility] Last Admin: 11/05/16 22:17 Dose: 1 applic Mirtazapine (Remeron -) 15 mg PO HS [facility] Last Admin: 11/05/16 22:12 Dose: 15 mg Nifedipine (Procardia Xl -) 60 mg PO DAILY [facility] Last Admin: 11/05/16 10:31 Dose: 60 mg Ranitidine HCl (Zantac -) 150 mg PO BID [facility] Sitagliptin Phosphate (Januvia -) 50 mg PO DAILY@0700 [facility] Last Admin: 11/06/16 06:24 Dose: 50 mg Tamsulosin HCl (Flomax -) 0.4 mg PO DAILY@0830 [facility] Last Admin: 11/05/16 08:55 Dose: 0.4 mg - Objective Vital Signs: Vital Signs Temperature 97.4 F L 11/06/16 06:15 Pulse Rate 64 11/06/16 06:15 Respiratory Rate 20 11/06/16 06:15 Blood Pressure 141/54 11/06/16 06:15 O2 Sat by Pulse Oximetry (%) 97 11/06/16 06:40 Constitutional: Yes: Calm Neck: Yes: WNL Cardiovascular: Yes: WNL Respiratory: Yes: Wheezes Gastrointestinal: Yes: WNL Labs: CBC, BMP 11/06/16 05:35 INR, PTT INR 1.19 (0.82-1.09) H D 11/01/16 13:09 Assessment/Plan (1) Acute on chronic respiratory failure with hypoxia and hypercapnia Code(s): J96.21 - ACUTE AND CHRONIC RESPIRATORY FAILURE WITH HYPOXIA J96.22 - ACUTE AND CHRONIC RESPIRATORY FAILURE WITH HYPERCAPNIA (2) Acute on chronic systolic and diastolic heart failure, NYHA class 1 Code(s): I50.43 - ACUTE ON CHRONIC COMBINED SYSTOLIC AND DIASTOLIC HRT FAIL (3) Acute respiratory disease Code(s): J06.9 - ACUTE UPPER RESPIRATORY INFECTION, UNSPECIFIED (4) Atrial flutter Code(s): I48.92 - UNSPECIFIED ATRIAL FLUTTER Qualifiers: Qualified Code(s): I48.92 - Unspecified atrial flutter (5) Atypical chest pain Code(s): R07.89 - OTHER CHEST PAIN (6) Chronic systolic CHF (congestive heart failure) Code(s): I50.22 - CHRONIC SYSTOLIC (CONGESTIVE) HEART FAILURE (7) Pacemaker Code(s): Z95.0 - PRESENCE OF CARDIAC PACEMAKER (8) Acute on chronic renal failure Code(s): N17.9 - ACUTE KIDNEY FAILURE, UNSPECIFIED N18.9 - CHRONIC KIDNEY DISEASE, UNSPECIFIED (9) Acute on chronic systolic (congestive) heart failure Code(s): I50.23 - ACUTE ON CHRONIC SYSTOLIC (CONGESTIVE) HEART FAILURE (10) Acute respiratory failure Code(s): J96.00 - ACUTE RESPIRATORY FAILURE, UNSP W HYPOXIA OR HYPERCAPNIA (11) Diabetes mellitus Code(s): E11.9 - TYPE 2 DIABETES MELLITUS WITHOUT COMPLICATIONS Qualifiers: Qualified Code(s): E10.65 - Type 1 diabetes mellitus with hyperglycemia (12) HTN (hypertension) Code(s): I10 - ESSENTIAL (PRIMARY) HYPERTENSION Qualifiers: Qualified Code(s): I10 - Essential (primary) hypertension Assessment/Plan ACUTE CHF IV [facility] RENAL AND CARDIOLOGY EVAL MONITOR LABS MONITOR OUTPUT DAILY WEIGHTS 02 SUPPORT PATIENT IS NOT FOLLOWING A CHF/ADA/RENAL DIET DIETARY EVAL, EATING HOT DOGS BROUGHT FROM HOME BY THE FAMILY -> NUTRITION ON CASE NO PPI. ON ZANTAC DELI ASSOCIATE CONSULTED FOR DC TO SNF vs HOME/HOME SERVICES ELECTRICAL [employer]SEM[employer] FM
[2016-11-06 08:52] LABS: ALBUMIN 2.1 g/dl (3.4-5.0); BILIRUBIN,TOTAL 0.2 mg/dL (0.2-1.0); CALCIUM 7.9 mg/dL (8.5-10.1); COCKROFT - GAULT 38.83; CREATININE 2.1 mg/dL (0.7-1.3); TOT PROT 5.6 g/dl (6.4-8.2)
[2016-11-06] MEDS ORDERED: PT OWN MED DRAWER 7, Y5N ONE (09:22)
[2016-11-06] MEDS: ISOSORBIDE MONONITRATE 30 MG TAB.SR.24H (FP) PO SCH (09:24)
[2016-11-06] MEDS: TAMSULOSIN HCL 0.4 MG CAP.ER.24H (FP) PO SCH (09:24)
[2016-11-06] MEDS: FERROUS SO4 325 MG TABLET (FP) PO SCH ×2 (09:24→21:32)
[2016-11-06] MEDS: CLOPIDOGREL BISULFATE 75 MG TABLET (FP) PO SCH (09:24)
[2016-11-06] MEDS: CARVEDILOL 12.5 MG TABLET (FP) PO SCH ×2 (09:24→21:32)
[2016-11-06] MEDS: GABAPENTIN 300 MG CAPSULE (FP) PO SCH ×2 (09:24→21:32)
[2016-11-06] MEDS: FINASTERIDE 5 MG TABLET (FP) PO SCH (09:24)
[2016-11-06] MEDS: DONEPEZIL HCL 5 MG TABLET (FP) PO SCH (09:25)
[2016-11-06] MEDS: RANITIDINE HCL 150 MG TABLET (FP) PO SCH ×2 (09:25→21:32)
[2016-11-06] MEDS: DOCUSATE SODIUM 100 MG CAPSULE (FP) PO SCH (09:25)
[2016-11-06] MEDS: levETIRAcetam 500 MG TABLET (FP) PO SCH ×2 (09:25→21:33)
[2016-11-06] MEDS: LISINOPRIL 10 MG TABLET (FP) PO SCH (09:25)
[2016-11-06] MEDS: ASPIRIN COATED 81 MG TABLET.EC PO SCH (09:25)
[2016-11-06] MEDS: METHYL SALICYLATE/MENTHOL OINT 30 GM TUBE TP SCH ×2 (09:26→21:37)
[2016-11-06] MEDS: NIFEdipine E.R 60 MG TABLET (UD) PO SCH (09:26)
--- NOTE | 2016-11-06 11:07 | PN ---
Progress Note, Physician Chief Complaint: Pt Alert; denies chest pain or dyspnea. Cough has diminished. History of Present Illness: The patient is a 62-year-old man (b. [place]), accompanied by and daughter, with a significant past medical history severe systolic heart failure- ->ICD, CAD-->PCI, hypertension, chronic obstructive pulmonary disease ( requiring intubation on 2005), emphysema, ?dementia, who presents to the emergency department via EMS for further evaluation of shortness of breath. HPI limited as patient arrives in severe respiratory distress. As per patient's , his symptoms started approximately 1 month ago with an intermittent productive cough with yellow-green sputum. She states that his symptoms worsened over the the past 3 days, as he became increasingly short of breath. EMS was activated today, and on arrival, the patient was noted to be in the low 90s on a non-rebreather and was found to have diffuse expiratory wheezes in the field, and was in respiratory distress. He was given 10 milligrams of Decadron and received a second Combivent. He was also placed on BiPAP, with noted improvement of his shortness of breath and oxygen saturation of 98%. No fever, chills, sick contacts. History provided by EMS, old records and pts who is with him Daughter and say pt has shown little response over the past 2 hours; prior to that, he was talking. Allergies: No Known Drug Allergies. Past Surgical History: None reported Social History: Former cigarette use. No ETOH and recreational drug use. Primary Care Physician: Dr. Damaris Bautista General Manager In Training: Dr. Saqib Galaviz (Affiliated with [facility]) - Current Medication List Current Medications: Active Medications Acetaminophen (Tylenol -) 650 mg PO Q6H PRN PRN Reason: FEVER OR PAIN Last Admin: 11/05/16 18:54 Dose: 650 mg Albuterol/Ipratropium (Duoneb -) 1 amp NEB Q6H PRN PRN Reason: SHORTNESS OF BREATH Last Admin: 11/04/16 22:30 Dose: 1 amp Aspirin (Ecotrin -) 81 mg PO DAILY [facility] Last Admin: 11/06/16 09:25 Dose: 81 mg Atorvastatin Calcium (Lipitor -) 10 mg PO HS [facility] Last Admin: 11/05/16 22:12 Dose: 10 mg Carvedilol (Coreg -) 12.5 mg PO BID [facility] Last Admin: 11/06/16 09:24 Dose: 12.5 mg Clopidogrel Bisulfate (Plavix -) 75 mg PO DAILY [facility] Last Admin: 11/06/16 09:24 Dose: 75 mg Docusate Sodium (Colace -) 100 mg PO DAILY [facility] Last Admin: 11/06/16 09:25 Dose: 100 mg Donepezil HCl (Aricept -) 5 mg PO DAILY [facility] Last Admin: 11/06/16 09:25 Dose: 5 mg Ergocalciferol (Drisdol -) 50,000 unit PO Q7D@1000 [facility] Ferrous Sulfate (Feosol -) 325 mg PO BID [facility] Last Admin: 11/06/16 09:24 Dose: 325 mg Finasteride (Proscar -) 5 mg PO DAILY [facility] Last Admin: 11/06/16 09:24 Dose: 5 mg Furosemide (Lasix Injection -) 60 mg IVPB BID@0600,1400 [facility] Last Admin: 11/06/16 06:27 Dose: 60 mg Gabapentin (Neurontin -) 300 mg PO BID [facility] Last Admin: 11/06/16 09:24 Dose: 300 mg Insulin Aspart (Novolog Vial Sliding Scale -) 1 vial SQ [facility] PRN Reason: Protocol Last Admin: 11/06/16 06:28 Dose: Not Given Insulin Detemir (Levemir Vial) 15 units SQ HS [facility] Last Admin: 11/05/16 22:16 Dose: 15 units Isosorbide Mononitrate (Imdur -) 30 mg PO DAILY [facility] Last Admin: 11/06/16 09:24 Dose: 30 mg Levetiracetam (Keppra -) 1,000 mg PO BID [facility] Last Admin: 11/06/16 09:25 Dose: 1,000 mg Lisinopril (Prinivil) 10 mg PO DAILY [facility] Last Admin: 11/06/16 09:25 Dose: 10 mg Methyl Salicylate (Girish-Mai -) 1 applic TP BID [facility] Last Admin: 11/06/16 09:26 Dose: 1 applic Mirtazapine (Remeron -) 15 mg PO HS [facility] Last Admin: 11/05/16 22:12 Dose: 15 mg Nifedipine (Procardia Xl -) 60 mg PO DAILY [facility] Last Admin: 11/06/16 09:26 Dose: 60 mg Ranitidine HCl (Zantac -) 150 mg PO BID [facility] Last Admin: 11/06/16 09:25 Dose: 150 mg Sitagliptin Phosphate (Januvia -) 50 mg PO DAILY@0700 [facility] Last Admin: 11/06/16 06:24 Dose: 50 mg Tamsulosin HCl (Flomax -) 0.4 mg PO DAILY@0830 [facility] Last Admin: 11/06/16 09:24 Dose: 0.4 mg - Objective Vital Signs: Vital Signs Temperature 97.4 F L 11/06/16 06:15 Pulse Rate 64 11/06/16 06:15 Respiratory Rate 20 11/06/16 06:15 Blood Pressure 141/54 11/06/16 06:15 O2 Sat by Pulse Oximetry (%) 97 11/06/16 06:40 Constitutional: Yes: Calm Eyes: Yes: WNL HENT: Yes: WNL Neck: Yes: WNL Cardiovascular: Yes: Pulse Irregular Respiratory: Yes: Diminished, Rales (bilateral) Genitourinary: No: Anuria Musculoskeletal: Yes: Muscle Weakness Extremities: Yes: Cool Edema: No Peripheral Pulses WNL: No Peripheral Pulses: Left Doralis Pedis: 1+, Right Dorsalis Pedis: 1+ Neurological: Yes: Alert, Weakness Psychiatric: Yes: Alert, Oriented Labs: CBC, BMP 11/06/16 05:35 11/06/16 05:35 INR, PTT INR 1.19 (0.82-1.09) H D 11/01/16 13:09 Abnormal Lab Results 11/06/16 11/06/16 05:35 05:35 RBC 3.66 L Hgb 8.9 L Hct 28.8 L MCV 78.7 L MCHC 31.1 L RDW 18.2 H Monocytes % 12.8 H D Eosinophils % 6.6 H D Sodium 146 H Carbon Dioxide 41 H Anion Gap 6 L BUN 34 H Creatinine 2.1 H Random Glucose 168 H Calcium 7.9 L AST 8 L Total Protein 5.6 L Albumin 2.1 L - ....Imaging Chest X-ray: Image Reviewed (continued bilateral pulmonary vascular congestion and effusion) Problem List - Problems (1) Acute respiratory disease Assessment/Plan: Bipap, bronchodilators, steroids, antibiotics per pulmonary and ID. Code(s): J06.9 - ACUTE UPPER RESPIRATORY INFECTION, UNSPECIFIED (2) Atrial flutter Assessment/Plan: on carvedilol for HR control (and systolic CHF). On ASA and clopidogrel (CAD; ?hx GI bleed precludes addtion of anticoagulant). Code(s): I48.92 - UNSPECIFIED ATRIAL FLUTTER Qualifiers: Qualified Code(s): I48.92 - Unspecified atrial flutter (3) Stented coronary artery Code(s): Z95.5 - PRESENCE OF CORONARY ANGIOPLASTY IMPLANT AND GRAFT (4) CVA (cerebral infarction) Code(s): I63.9 - CEREBRAL INFARCTION, UNSPECIFIED Qualifiers: Qualified Code(s): I63.9 - Cerebral infarction, unspecified (5) GERD (gastroesophageal reflux disease) Code(s): K21.9 - GASTRO-ESOPHAGEAL REFLUX DISEASE WITHOUT ESOPHAGITIS (6) HLD (hyperlipidemia) Code(s): E78.5 - HYPERLIPIDEMIA, UNSPECIFIED (7) HTN (hypertension) Code(s): I10 - ESSENTIAL (PRIMARY) HYPERTENSION Qualifiers: Qualified Code(s): I10 - Essential (primary) hypertension (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 Code(s): E11.610 - TYPE 2 DIABETES MELLITUS W DIABETIC NEUROPATHIC ARTHROPATHY Qualifiers: Qualified Code(s): E11.618 - Type 2 diabetes mellitus with other diabetic arthropathy; Z79.4 - correction (current) use of insulin (9) Acute on chronic systolic and diastolic heart failure, NYHA class 1 Assessment/Plan: BNP >15,000 +JVP CXR: continued significant pulmonary vascular congestion and pleural effusion. On IV furosemide. BP elevated. Plan: Continue carvedillol, lisinopril. As discussed with Dr. Snyder, will start spironolactone (25 mg daily). F/u BUN/ Cr, electrolytes. (Pt with chronic renal dysfunction; Cr 1.9-->2.1 this admission). F/u workup for BPH (no Metcalf; has condom "cath"). Code(s): I50.43 - ACUTE ON CHRONIC COMBINED SYSTOLIC AND DIASTOLIC HRT FAIL
[2016-11-06] MEDS: SPIRONOLACTONE 25 MG TABLET (FP) PO SCH (12:17)
--- NOTE | 2016-11-06 12:46 | PN ---
Progress Note (short form) - Note Progress Note: RENAL Pt is awake and alert comfortable Last Vital Signs Temp Pulse Resp BP Pulse Ox 97.4 F L 64 20 141/54 97 11/06/16 06:15 11/06/16 06:15 11/06/16 06:15 11/06/16 06:15 11/06/16 06:40 lungs crackles at bases heard cvs s1s2 rr abd soft ext +edema neuro a+ox3 CBC, BMP 11/06/16 05:35 11/06/16 05:35 Current Medications Generic Name Dose Route Start Last Admin Trade Name Freq PRN Reason Stop Dose Admin Acetaminophen 650 mg 11/01/16 19:45 11/05/16 18:54 Tylenol - PO 650 mg Q6H PRN Administration FEVER OR PAIN Albuterol/Ipratropium 1 amp 11/01/16 19:45 11/04/16 22:30 Duoneb - NEB 1 amp Q6H PRN Administration SHORTNESS OF BREATH Aspirin 81 mg 11/02/16 10:00 11/06/16 09:25 Ecotrin - PO 81 mg DAILY [facility] Administration Atorvastatin Calcium 10 mg 11/01/16 22:00 11/05/16 22:12 Lipitor - PO 10 mg HS [facility] Administration Carvedilol 12.5 mg 11/01/16 22:00 11/06/16 09:24 Coreg - PO 12.5 mg BID [facility] Administration Clopidogrel Bisulfate 75 mg 11/02/16 10:00 11/06/16 09:24 Plavix - PO 75 mg DAILY [facility] Administration Docusate Sodium 100 mg 11/02/16 10:00 11/06/16 09:25 Colace - PO 100 mg DAILY [facility] Administration Donepezil HCl 5 mg 11/02/16 10:00 11/06/16 09:25 Aricept - PO 5 mg DAILY [facility] Administration Ergocalciferol 50,000 unit 11/08/16 10:00 Drisdol - PO Q7D@1000 [facility] Ferrous Sulfate 325 mg 11/01/16 22:00 11/06/16 09:24 Feosol - PO 325 mg BID [facility] Administration Finasteride 5 mg 11/02/16 10:00 11/06/16 09:24 Proscar - PO 5 mg DAILY [facility] Administration Furosemide 60 mg 11/05/16 06:00 11/06/16 06:27 Lasix Injection - IVPB 60 mg BID@0600,1400 [facility] Administration Gabapentin 300 mg 11/01/16 22:00 11/06/16 09:24 Neurontin - PO 300 mg BID [facility] Administration Insulin Aspart 1 vial 11/01/16 22:00 11/06/16 06:28 Novolog Vial Sliding Scale - SQ Not Given ACHS [facility] Protocol Insulin Detemir 15 units 11/01/16 22:00 11/05/16 22:16 Levemir Vial SQ 15 units HS [facility] Administration Isosorbide Mononitrate 30 mg 11/02/16 10:00 11/06/16 09:24 Imdur - PO 30 mg DAILY [facility] Administration Levetiracetam 1,000 mg 11/01/16 22:00 11/06/16 09:25 Keppra - PO 1,000 mg BID [facility] Administration Lisinopril 10 mg 11/02/16 10:00 11/06/16 09:25 Prinivil PO 10 mg DAILY [facility] Administration Methyl Salicylate 1 applic 11/02/16 10:00 11/06/16 09:26 Girish-Mai - TP 1 applic BID [facility] Administration Mirtazapine 15 mg 11/01/16 22:00 11/05/16 22:12 Remeron - PO 15 mg HS [facility] Administration Nifedipine 60 mg 11/02/16 10:00 11/06/16 09:26 Procardia Xl - PO 60 mg DAILY [facility] Administration Ranitidine HCl 150 mg 11/06/16 10:00 11/06/16 09:25 Zantac - PO 150 mg BID [facility] Administration Sitagliptin Phosphate 50 mg 11/02/16 07:00 11/06/16 06:24 Januvia - PO 50 mg DAILY@0700 [facility] Administration Spironolactone 25 mg 11/06/16 11:30 11/06/16 12:17 Aldactone - PO 25 mg DAILY [facility] Administration Tamsulosin HCl 0.4 mg 11/02/16 08:30 11/06/16 09:24 Flomax - PO 0.4 mg DAILY@0830 [facility] Administration Impression 1. CKD 2. hypoxia 3. hx CVA 4. DM 5. epilepsy 6. hyperlipidemia 7. hx anemia 8. hx a-fib 9. hypokalemia 10. CAD 11. acute CHF Plan -continue to diurese. HE still has crackles at bases monitor renal function agree with aldactone but at low dose MV
[2016-11-06] MEDS ORDERED: INSULIN (NOVOLOG) ASPART 100 UNITS/ML 10ML VIAL ONE (13:50)
[2016-11-06] MEDS: ATORVASTATIN CA 10 MG TABLET (FP) PO SCH (21:32)
[2016-11-06] MEDS: MIRTAZAPINE 15 MG TABLET (FP) PO SCH (21:32)
[2016-11-06] MEDS: INSULIN DETEMIR 100 UNITS/ML MDV SQ SCH (21:33)
[2016-11-07] MEDS: FUROSEMIDE 100 MG/10 ML INJECTABLE VIAL IVPB SCH ×2 (06:13→13:59)
[2016-11-07] MEDS: INSULIN SLIDING SCALE (NOVOLOG) 1 VIAL SQ SCH ×4 (06:14→21:35)
[2016-11-07] MEDS: sitaGLIPtin PHOSPHATE 50 MG TABLET PO SCH (06:14)
--- NOTE | 2016-11-07 06:15 | PN ---
Progress Note, Physician Chief Complaint: CALM ON PAP - Current Medication List Current Medications: Active Medications Acetaminophen (Tylenol -) 650 mg PO Q6H PRN PRN Reason: FEVER OR PAIN Last Admin: 11/05/16 18:54 Dose: 650 mg Albuterol/Ipratropium (Duoneb -) 1 amp NEB Q6H PRN PRN Reason: SHORTNESS OF BREATH Last Admin: 11/04/16 22:30 Dose: 1 amp Aspirin (Ecotrin -) 81 mg PO DAILY [facility] Last Admin: 11/06/16 09:25 Dose: 81 mg Atorvastatin Calcium (Lipitor -) 10 mg PO HS [facility] Last Admin: 11/06/16 21:32 Dose: 10 mg Carvedilol (Coreg -) 12.5 mg PO BID [facility] Last Admin: 11/06/16 21:32 Dose: 12.5 mg Clopidogrel Bisulfate (Plavix -) 75 mg PO DAILY [facility] Last Admin: 11/06/16 09:24 Dose: 75 mg Docusate Sodium (Colace -) 100 mg PO DAILY [facility] Last Admin: 11/06/16 09:25 Dose: 100 mg Donepezil HCl (Aricept -) 5 mg PO DAILY [facility] Last Admin: 11/06/16 09:25 Dose: 5 mg Ergocalciferol (Drisdol -) 50,000 unit PO Q7D@1000 [facility] Ferrous Sulfate (Feosol -) 325 mg PO BID [facility] Last Admin: 11/06/16 21:32 Dose: 325 mg Finasteride (Proscar -) 5 mg PO DAILY [facility] Last Admin: 11/06/16 09:24 Dose: 5 mg Furosemide (Lasix Injection -) 60 mg IVPB BID@0600,1400 [facility] Last Admin: 11/07/16 06:13 Dose: 60 mg Gabapentin (Neurontin -) 300 mg PO BID [facility] Last Admin: 11/06/16 21:32 Dose: 300 mg Insulin Aspart (Novolog Vial Sliding Scale -) 1 vial SQ ACHS [facility] PRN Reason: Protocol Last Admin: 11/07/16 06:14 Dose: Not Given Insulin Detemir (Levemir Vial) 15 units SQ HS [facility] Last Admin: 11/06/16 21:33 Dose: 15 units Isosorbide Mononitrate (Imdur -) 30 mg PO DAILY [facility] Last Admin: 11/06/16 09:24 Dose: 30 mg Levetiracetam (Keppra -) 1,000 mg PO BID [facility] Last Admin: 11/06/16 21:33 Dose: 1,000 mg Lisinopril (Prinivil) 10 mg PO DAILY [facility] Last Admin: 11/06/16 09:25 Dose: 10 mg Methyl Salicylate (Girish-Mai -) 1 applic TP BID [facility] Last Admin: 11/06/16 21:37 Dose: Not Given Mirtazapine (Remeron -) 15 mg PO HS [facility] Last Admin: 11/06/16 21:32 Dose: 15 mg Nifedipine (Procardia Xl -) 60 mg PO DAILY [facility] Last Admin: 11/06/16 09:26 Dose: 60 mg Ranitidine HCl (Zantac -) 150 mg PO BID [facility] Last Admin: 11/06/16 21:32 Dose: 150 mg Sitagliptin Phosphate (Januvia -) 50 mg PO DAILY@0700 [facility] Last Admin: 11/07/16 06:14 Dose: 50 mg Spironolactone (Aldactone -) 25 mg PO DAILY [facility] Last Admin: 11/06/16 12:17 Dose: 25 mg Tamsulosin HCl (Flomax -) 0.4 mg PO DAILY@0830 [facility] Last Admin: 11/06/16 09:24 Dose: 0.4 mg - Objective Vital Signs: Vital Signs Temperature 98.2 F 11/07/16 05:25 Pulse Rate 61 11/07/16 05:25 Respiratory Rate 20 11/07/16 05:25 Blood Pressure 156/70 11/07/16 05:25 O2 Sat by Pulse Oximetry (%) 98 11/07/16 01:36 Constitutional: Yes: Calm Neck: Yes: WNL Cardiovascular: Yes: WNL Respiratory: Yes: Rhonchi Gastrointestinal: Yes: WNL Labs: CBC, BMP 11/06/16 05:35 11/06/16 05:35 INR, PTT INR 1.19 (0.82-1.09) H D 11/01/16 13:09 Assessment/Plan (1) Acute on chronic respiratory failure with hypoxia and hypercapnia Code(s): J96.21 - ACUTE AND CHRONIC RESPIRATORY FAILURE WITH HYPOXIA J96.22 - ACUTE AND CHRONIC RESPIRATORY FAILURE WITH HYPERCAPNIA (2) Acute on chronic systolic and diastolic heart failure, NYHA class 1 Code(s): I50.43 - ACUTE ON CHRONIC COMBINED SYSTOLIC AND DIASTOLIC HRT FAIL (3) Acute respiratory disease Code(s): J06.9 - ACUTE UPPER RESPIRATORY INFECTION, UNSPECIFIED (4) Atrial flutter Code(s): I48.92 - UNSPECIFIED ATRIAL FLUTTER Qualifiers: Qualified Code(s): I48.92 - Unspecified atrial flutter (5) Atypical chest pain Code(s): R07.89 - OTHER CHEST PAIN (6) Chronic systolic CHF (congestive heart failure) Code(s): I50.22 - CHRONIC SYSTOLIC (CONGESTIVE) HEART FAILURE (7) Pacemaker Code(s): Z95.0 - PRESENCE OF CARDIAC PACEMAKER (8) Acute on chronic renal failure Code(s): N17.9 - ACUTE KIDNEY FAILURE, UNSPECIFIED N18.9 - CHRONIC KIDNEY DISEASE, UNSPECIFIED (9) Acute on chronic systolic (congestive) heart failure Code(s): I50.23 - ACUTE ON CHRONIC SYSTOLIC (CONGESTIVE) HEART FAILURE (10) Acute respiratory failure Code(s): J96.00 - ACUTE RESPIRATORY FAILURE, UNSP W HYPOXIA OR HYPERCAPNIA (11) Diabetes mellitus Code(s): E11.9 - TYPE 2 DIABETES MELLITUS WITHOUT COMPLICATIONS Qualifiers: Qualified Code(s): E10.65 - Type 1 diabetes mellitus with hyperglycemia (12) HTN (hypertension) Code(s): I10 - ESSENTIAL (PRIMARY) HYPERTENSION Qualifiers: Qualified Code(s): I10 - Essential (primary) hypertension Assessment/Plan ACUTE CHF INCREASED DIURETICS RENAL AND CARDIOLOGY EVAL MONITOR LABS MONITOR OUTPUT DAILY [place] 02 SUPPORT PATIENT IS NOT FOLLOWING A CHF/ADA/RENAL DIET DIETARY EVAL, EATING HOT DOGS BROUGHT FROM HOME BY THE FAMILY -> NUTRITION ON CASE NO PPI. 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
[2016-11-07 08:01] LABS: ALBUMIN 2.1 g/dl (3.4-5.0); BILIRUBIN,TOTAL 0.3 mg/dL (0.2-1.0); CALCIUM 7.8 mg/dL (8.5-10.1); COCKROFT - GAULT 40.09; TOT PROT 5.8 g/dl (6.4-8.2)
[2016-11-07 08:03] LABS: BASOPHIL 0.5 % (0-2.0); EOSINOPHIL 5.2 % (0-4.5); MCH 24.2 pg (25.7-33.7); MEAN CELL VOLUME 78.1 fl (80-96); MEAN PLT VOLUME 8.8 fl (7.5-11.1); NEUTROPHILS 72.8 % (42.8-82.8); PLATELET COUNT 163 K/MM3 (134-434); RDW 17.8 % (11.9-15.9); WHITE BLOOD COUNT 6.3 K/mm3 (4.0-10.0)
[2016-11-07] MEDS: TAMSULOSIN HCL 0.4 MG CAP.ER.24H (FP) PO SCH (09:21)
[2016-11-07] MEDS: ASPIRIN COATED 81 MG TABLET.EC PO SCH (09:22)
[2016-11-07] MEDS: levETIRAcetam 500 MG TABLET (FP) PO SCH ×2 (09:22→21:34)
[2016-11-07] MEDS: DONEPEZIL HCL 5 MG TABLET (FP) PO SCH (09:22)
[2016-11-07] MEDS: CLOPIDOGREL BISULFATE 75 MG TABLET (FP) PO SCH (09:22)
[2016-11-07] MEDS: FERROUS SO4 325 MG TABLET (FP) PO SCH ×2 (09:22→21:33)
[2016-11-07] MEDS: RANITIDINE HCL 150 MG TABLET (FP) PO SCH ×2 (09:22→21:35)
[2016-11-07] MEDS: SPIRONOLACTONE 25 MG TABLET (FP) PO SCH (09:22)
[2016-11-07] MEDS: LISINOPRIL 10 MG TABLET (FP) PO SCH (09:22)
[2016-11-07] MEDS: FINASTERIDE 5 MG TABLET (FP) PO SCH (09:22)
[2016-11-07] MEDS: CARVEDILOL 12.5 MG TABLET (FP) PO SCH ×2 (09:22→21:33)
[2016-11-07] MEDS: ISOSORBIDE MONONITRATE 30 MG TAB.SR.24H (FP) PO SCH (09:30)
[2016-11-07] MEDS: NIFEdipine E.R 60 MG TABLET (UD) PO SCH (09:31)
[2016-11-07] MEDS: METHYL SALICYLATE/MENTHOL OINT 30 GM TUBE TP SCH ×2 (09:32→21:33)
[2016-11-07] MEDS: DOCUSATE SODIUM 100 MG CAPSULE (FP) PO SCH (09:33)
[2016-11-07] MEDS: GABAPENTIN 300 MG CAPSULE (FP) PO SCH ×2 (11:29→21:34)
--- NOTE | 2016-11-07 12:52 | PN ---
Progress Note, Physician History of Present Illness: pulmonary alert,feeling better,nad,-cp,-sob - Current Medication List Current Medications: Active Medications Acetaminophen (Tylenol -) 650 mg PO Q6H PRN PRN Reason: FEVER OR PAIN Last Admin: 11/05/16 18:54 Dose: 650 mg Albuterol/Ipratropium (Duoneb -) 1 amp NEB Q6H PRN PRN Reason: SHORTNESS OF BREATH Last Admin: 11/04/16 22:30 Dose: 1 amp Aspirin (Ecotrin -) 81 mg PO DAILY [facility] Last Admin: 11/07/16 09:22 Dose: 81 mg Atorvastatin Calcium (Lipitor -) 10 mg PO HS [facility] Last Admin: 11/06/16 21:32 Dose: 10 mg Carvedilol (Coreg -) 12.5 mg PO BID [facility] Last Admin: 11/07/16 09:22 Dose: 12.5 mg Clopidogrel Bisulfate (Plavix -) 75 mg PO DAILY [facility] Last Admin: 11/07/16 09:22 Dose: 75 mg Docusate Sodium (Colace -) 100 mg PO DAILY [facility] Last Admin: 11/07/16 09:33 Dose: 100 mg Donepezil HCl (Aricept -) 5 mg PO DAILY [facility] Last Admin: 11/07/16 09:22 Dose: 5 mg Ergocalciferol (Drisdol -) 50,000 unit PO Q7D@1000 [facility] Ferrous Sulfate (Feosol -) 325 mg PO BID [facility] Last Admin: 11/07/16 09:22 Dose: 325 mg Finasteride (Proscar -) 5 mg PO DAILY [facility] Last Admin: 11/07/16 09:22 Dose: 5 mg Furosemide (Lasix Injection -) 60 mg IVPB BID@0600,1400 [facility] Last Admin: 11/07/16 06:13 Dose: 60 mg Gabapentin (Neurontin -) 300 mg PO BID [facility] Last Admin: 11/07/16 11:29 Dose: 300 mg Insulin Aspart (Novolog Vial Sliding Scale -) 1 vial SQ ACHS [facility] PRN Reason: Protocol Last Admin: 11/07/16 11:25 Dose: Not Given Insulin Detemir (Levemir Vial) 15 units SQ HS [facility] Last Admin: 11/06/16 21:33 Dose: 15 units Isosorbide Mononitrate (Imdur -) 30 mg PO DAILY [facility] Last Admin: 11/07/16 09:30 Dose: 30 mg Levetiracetam (Keppra -) 1,000 mg PO BID [facility] Last Admin: 11/07/16 09:22 Dose: 1,000 mg Lisinopril (Prinivil) 10 mg PO DAILY [facility] Last Admin: 11/07/16 09:22 Dose: 10 mg Methyl Salicylate (Girish-Mai -) 1 applic TP BID [facility] Last Admin: 11/07/16 09:32 Dose: 1 applic Mirtazapine (Remeron -) 15 mg PO HS [facility] Last Admin: 11/06/16 21:32 Dose: 15 mg Nifedipine (Procardia Xl -) 60 mg PO DAILY [facility] Last Admin: 11/07/16 09:31 Dose: 60 mg Ranitidine HCl (Zantac -) 150 mg PO BID [facility] Last Admin: 11/07/16 09:22 Dose: 150 mg Sitagliptin Phosphate (Januvia -) 50 mg PO DAILY@0700 [facility] Last Admin: 11/07/16 06:14 Dose: 50 mg Spironolactone (Aldactone -) 25 mg PO DAILY [facility] Last Admin: 11/07/16 09:22 Dose: 25 mg Tamsulosin HCl (Flomax -) 0.4 mg PO DAILY@0830 [facility] Last Admin: 11/07/16 09:21 Dose: 0.4 mg - Objective Vital Signs: Vital Signs Temperature 98.2 F 11/07/16 05:25 Pulse Rate 61 11/07/16 05:25 Respiratory Rate 20 11/07/16 05:25 Blood Pressure 156/70 11/07/16 05:25 O2 Sat by Pulse Oximetry (%) 98 11/07/16 06:10 Constitutional: Yes: Well Nourished, Calm Eyes: Yes: WNL HENT: Yes: WNL Neck: Yes: WNL Cardiovascular: Yes: Pulse Irregular, S1, S2 Respiratory: Yes: Diminished Gastrointestinal: Yes: Normal Bowel Sounds, Soft Extremities: Yes: WNL Edema: No Labs: CBC, BMP 11/07/16 05:35 11/07/16 05:35 INR, PTT INR 1.19 (0.82-1.09) H D 11/01/16 13:09 Problem List - Problems (1) Acute on chronic systolic and diastolic heart failure, NYHA class 1 Code(s): I50.43 - ACUTE ON CHRONIC COMBINED SYSTOLIC AND DIASTOLIC HRT FAIL (2) Acute respiratory disease Code(s): J06.9 - ACUTE UPPER RESPIRATORY INFECTION, UNSPECIFIED (3) Altered mental status Code(s): R41.82 - ALTERED MENTAL STATUS, UNSPECIFIED Qualifiers: Qualified Code(s): R41.0 - Disorientation, unspecified (4) Atypical chest pain Code(s): R07.89 - OTHER CHEST PAIN (5) CHF (congestive heart failure) Code(s): I50.9 - HEART FAILURE, UNSPECIFIED Qualifiers: Qualified Code(s): I50.43 - Acute on chronic combined systolic ( congestive) and diastolic (congestive) heart failure (6) Dementia Code(s): F03.90 - UNSPECIFIED DEMENTIA WITHOUT BEHAVIORAL DISTURBANCE (7) Epilepsy Code(s): G40.909 - EPILEPSY, UNSP, NOT INTRACTABLE, WITHOUT STATUS EPILEPTICUS (8) Stented coronary artery Code(s): Z95.5 - PRESENCE OF CORONARY ANGIOPLASTY IMPLANT AND GRAFT (9) ASHD (arteriosclerotic heart disease) Code(s): I25.10 - ATHSCL HEART DISEASE OF [place] CORONARY ARTERY W/O ANG PCTRS (10) Acute respiratory failure Code(s): J96.00 - ACUTE RESPIRATORY FAILURE, UNSP W HYPOXIA OR HYPERCAPNIA (11) CKD (chronic kidney disease) Code(s): N18.9 - CHRONIC KIDNEY DISEASE, UNSPECIFIED (12) CVA (cerebral vascular accident) Code(s): I63.9 - CEREBRAL INFARCTION, UNSPECIFIED (13) Chest pain Code(s): R07.9 - CHEST PAIN, UNSPECIFIED (14) Diabetes mellitus Code(s): E11.9 - TYPE 2 DIABETES MELLITUS WITHOUT COMPLICATIONS Qualifiers: Qualified Code(s): E10.65 - Type 1 diabetes mellitus with hyperglycemia (15) Difficulty breathing Code(s): R06.89 - OTHER ABNORMALITIES OF BREATHING (16) GERD (gastroesophageal reflux disease) Code(s): K21.9 - GASTRO-ESOPHAGEAL REFLUX DISEASE WITHOUT ESOPHAGITIS (17) HLD (hyperlipidemia) Code(s): E78.5 - HYPERLIPIDEMIA, UNSPECIFIED (18) HTN (hypertension) Code(s): I10 - ESSENTIAL (PRIMARY) HYPERTENSION Qualifiers: Qualified Code(s): I10 - Essential (primary) hypertension (19) Hypoxia Code(s): R09.02 - HYPOXEMIA (20) Seizure disorder Code(s): G40.909 - EPILEPSY, UNSP, NOT INTRACTABLE, WITHOUT STATUS EPILEPTICUS (21) Acute on chronic respiratory failure with hypoxia and hypercapnia Code(s): J96.21 - ACUTE AND CHRONIC RESPIRATORY FAILURE WITH HYPOXIA J96.22 - ACUTE AND CHRONIC RESPIRATORY FAILURE WITH HYPERCAPNIA Assessment/Plan IMP ACUTE ON CHRONIC HYPOXEMIC/HYPERCAPNEIC RESPIRATORY FAILURE DECOMPENSATED CHF ASHD S/P CT,S/P STENTS AFIB HTN S/P CVA WITH R HEMIPARESIS SEIZURE DISORDER DM CKD PLAN CONT IV LASIX O2 TO MAINTAIN O2 SAT 90% OR GREATER INHALED BRONCHODILATORS MONITOR LYTES,RENAL DAILY WTS F/U CHEST X-RAY AM DR TORRES Problem List - Problems (1) Acute on chronic systolic and diastolic heart failure, NYHA class 1 Code(s): I50.43 - ACUTE ON CHRONIC COMBINED SYSTOLIC AND DIASTOLIC HRT FAIL (2) Acute respiratory disease Code(s): J06.9 - ACUTE UPPER RESPIRATORY INFECTION, UNSPECIFIED (3) Altered mental status Code(s): R41.82 - ALTERED MENTAL STATUS, UNSPECIFIED Qualifiers: Altered mental status type: disorientation Qualified Code(s): R41.0 - Disorientation, unspecified (4) Atypical chest pain Code(s): R07.89 - OTHER CHEST PAIN (5) CHF (congestive heart failure) Code(s): I50.9 - HEART FAILURE, UNSPECIFIED Qualifiers: Congestive heart failure type: combined Congestive heart failure chronicity: acute on chronic Qualified Code(s): I50.43 - Acute on chronic combined systolic (congestive) and diastolic (congestive) heart failure (6) Dementia Code(s): F03.90 - UNSPECIFIED DEMENTIA WITHOUT BEHAVIORAL DISTURBANCE Qualifiers: Dementia behavioral disturbance: without behavioral disturbance (7) Epilepsy Code(s): G40.909 - EPILEPSY, UNSP, NOT INTRACTABLE, WITHOUT STATUS EPILEPTICUS (8) Stented coronary artery Code(s): Z95.5 - PRESENCE OF CORONARY ANGIOPLASTY IMPLANT AND GRAFT (9) ASHD (arteriosclerotic heart disease) Code(s): I25.10 - ATHSCL HEART DISEASE OF [place] CORONARY ARTERY W/O ANG PCTRS (10) Acute respiratory failure Code(s): J96.00 - ACUTE RESPIRATORY FAILURE, UNSP W HYPOXIA OR HYPERCAPNIA (11) CKD (chronic kidney disease) Code(s): N18.9 - CHRONIC KIDNEY DISEASE, UNSPECIFIED (12) CVA (cerebral vascular accident) Code(s): I63.9 - CEREBRAL INFARCTION, UNSPECIFIED Qualifiers: Precerebral and cerebral artery: unspecified precerebral artery (13) Chest pain Code(s): R07.9 - CHEST PAIN, UNSPECIFIED Qualifiers: Chest pain type: precordial chest pain (14) Diabetes mellitus Code(s): E11.9 - TYPE 2 DIABETES MELLITUS WITHOUT COMPLICATIONS Qualifiers: Diabetes mellitus type: type 1 Diabetes mellitus complication status: with hyperglycemia Qualified Code(s): E10.65 - Type 1 diabetes mellitus with hyperglycemia (15) Difficulty breathing Code(s): R06.89 - OTHER ABNORMALITIES OF BREATHING (16) GERD (gastroesophageal reflux disease) Code(s): K21.9 - GASTRO-ESOPHAGEAL REFLUX DISEASE WITHOUT ESOPHAGITIS (17) HLD (hyperlipidemia) Code(s): E78.5 - HYPERLIPIDEMIA, UNSPECIFIED (18) HTN (hypertension) Code(s): I10 - ESSENTIAL (PRIMARY) HYPERTENSION Qualifiers: Hypertension type: essential hypertension Qualified Code(s): I10 - Essential (primary) hypertension (19) Hypoxia Code(s): R09.02 - HYPOXEMIA (20) Seizure disorder Code(s): G40.909 - EPILEPSY, UNSP, NOT INTRACTABLE, WITHOUT STATUS EPILEPTICUS (21) Acute on chronic respiratory failure with hypoxia and hypercapnia Code(s): J96.21 - ACUTE AND CHRONIC RESPIRATORY FAILURE WITH HYPOXIA J96.22 - ACUTE AND CHRONIC RESPIRATORY FAILURE WITH HYPERCAPNIA
--- NOTE | 2016-11-07 13:47 | PN ---
Progress Note, Physician History of Present Illness: The patient is a 62-year-old man, accompanied by , with a significant past medical history of hypertension, chronic obstructive pulmonary disease ( requiring intubation on 2005) and emphysema who presents to the emergency department via EMS for further evaluation of shortness of breath. HPI limited as patient arrives in severe respiratory distress. As per patient's , his symptoms started approximately 1 month ago with an intermittent productive cough with yellow-green sputum. She states that his symptoms worsened over the the past 3 days, as he became increasingly short of breath. EMS was activated today, and on arrival, the patient was noted to be in the low 90s on a non- rebreather and was found to have diffuse expiratory wheezes in the field, and was in respiratory distress. He was given 10 milligrams of Decadron and received a second Combivent. He was also placed on BiPAP, with noted improvement of his shortness of breath and oxygen saturation of 98%. No fever, chills, sick contacts. History provided by EMS, old records and pts who is with him Daughter and say pt has shown little response over the past 2 hours; prior to that, he was talking. - Current Medication List Current Medications: Active Medications Acetaminophen (Tylenol -) 650 mg PO Q6H PRN PRN Reason: FEVER OR PAIN Last Admin: 11/05/16 18:54 Dose: 650 mg Albuterol/Ipratropium (Duoneb -) 1 amp NEB Q6H PRN PRN Reason: SHORTNESS OF BREATH Last Admin: 11/04/16 22:30 Dose: 1 amp Aspirin (Ecotrin -) 81 mg PO DAILY [facility] Last Admin: 11/07/16 09:22 Dose: 81 mg Atorvastatin Calcium (Lipitor -) 10 mg PO HS [facility] Last Admin: 11/06/16 21:32 Dose: 10 mg Carvedilol (Coreg -) 12.5 mg PO BID [facility] Last Admin: 11/07/16 09:22 Dose: 12.5 mg Clopidogrel Bisulfate (Plavix -) 75 mg PO DAILY [facility] Last Admin: 11/07/16 09:22 Dose: 75 mg Docusate Sodium (Colace -) 100 mg PO DAILY [facility] Last Admin: 11/07/16 09:33 Dose: 100 mg Donepezil HCl (Aricept -) 5 mg PO DAILY [facility] Last Admin: 11/07/16 09:22 Dose: 5 mg Ergocalciferol (Drisdol -) 50,000 unit PO Q7D@1000 [facility] Ferrous Sulfate (Feosol -) 325 mg PO BID [facility] Last Admin: 11/07/16 09:22 Dose: 325 mg Finasteride (Proscar -) 5 mg PO DAILY [facility] Last Admin: 11/07/16 09:22 Dose: 5 mg Furosemide (Lasix Injection -) 60 mg IVPB BID@0600,1400 [facility] Last Admin: 11/07/16 06:13 Dose: 60 mg Gabapentin (Neurontin -) 300 mg PO BID [facility] Last Admin: 11/07/16 11:29 Dose: 300 mg Insulin Aspart (Novolog Vial Sliding Scale -) 1 vial SQ [facility] PRN Reason: Protocol Last Admin: 11/07/16 11:25 Dose: Not Given Insulin Detemir (Levemir Vial) 15 units SQ HS [facility] Last Admin: 11/06/16 21:33 Dose: 15 units Isosorbide Mononitrate (Imdur -) 30 mg PO DAILY [facility] Last Admin: 11/07/16 09:30 Dose: 30 mg Levetiracetam (Keppra -) 1,000 mg PO BID [facility] Last Admin: 11/07/16 09:22 Dose: 1,000 mg Lisinopril (Prinivil) 10 mg PO DAILY [facility] Last Admin: 11/07/16 09:22 Dose: 10 mg Methyl Salicylate (Girish-Mai -) 1 applic TP BID [facility] Last Admin: 11/07/16 09:32 Dose: 1 applic Mirtazapine (Remeron -) 15 mg PO HS [facility] Last Admin: 11/06/16 21:32 Dose: 15 mg Nifedipine (Procardia Xl -) 60 mg PO DAILY [facility] Last Admin: 11/07/16 09:31 Dose: 60 mg Ranitidine HCl (Zantac -) 150 mg PO BID [facility] Last Admin: 11/07/16 09:22 Dose: 150 mg Sitagliptin Phosphate (Januvia -) 50 mg PO DAILY@0700 [facility] Last Admin: 11/07/16 06:14 Dose: 50 mg Spironolactone (Aldactone -) 25 mg PO DAILY [facility] Last Admin: 11/07/16 09:22 Dose: 25 mg Tamsulosin HCl (Flomax -) 0.4 mg PO DAILY@0830 [facility] Last Admin: 11/07/16 09:21 Dose: 0.4 mg - Objective Vital Signs: Vital Signs Temperature 98.2 F 11/07/16 05:25 Pulse Rate 61 11/07/16 05:25 Respiratory Rate 20 11/07/16 05:25 Blood Pressure 156/70 11/07/16 05:25 O2 Sat by Pulse Oximetry (%) 98 11/07/16 06:10 Eyes: Yes: WNL, Conjunctiva Clear, EOM Intact HENT: Yes: WNL, Atraumatic, Normocephalic Neck: Yes: WNL, Supple, Trachea Midline Cardiovascular: Yes: WNL, Regular Rate and Rhythm Respiratory: Yes: WNL, Regular, CTA Bilaterally Gastrointestinal: Yes: WNL, Normal Bowel Sounds Genitourinary: Yes: WNL Musculoskeletal: Yes: WNL Extremities: Yes: WNL Edema: No Integumentary: Yes: WNL Neurological: Yes: WNL, Alert, Oriented ...Motor Strength: WNL Psychiatric: Yes: WNL Labs: CBC, BMP 11/07/16 05:35 11/07/16 05:35 INR, PTT INR 1.19 (0.82-1.09) H D 11/01/16 13:09 Assessment/Plan - Problems (1) Acute respiratory disease Assessment/Plan: Bipap, bronchodilators, steroids, antibiotics per pulmonary and ID. Code(s): J06.9 - ACUTE UPPER RESPIRATORY INFECTION, UNSPECIFIED (2) Atrial flutter Assessment/Plan: on carvedilol for HR control (and systolic CHF). On ASA and clopidogrel (CAD; ?hx GI bleed precludes addtion of anticoagulant). Code(s): I48.92 - UNSPECIFIED ATRIAL FLUTTER Qualifiers: Qualified Code(s): I48.92 - Unspecified atrial flutter (3) Stented coronary artery Code(s): Z95.5 - PRESENCE OF CORONARY ANGIOPLASTY IMPLANT AND GRAFT (4) CVA (cerebral infarction) Code(s): I63.9 - CEREBRAL INFARCTION, UNSPECIFIED Qualifiers: Qualified Code(s): I63.9 - Cerebral infarction, unspecified (5) GERD (gastroesophageal reflux disease) Code(s): K21.9 - GASTRO-ESOPHAGEAL REFLUX DISEASE WITHOUT ESOPHAGITIS (6) HLD (hyperlipidemia) Code(s): E78.5 - HYPERLIPIDEMIA, UNSPECIFIED (7) HTN (hypertension) Code(s): I10 - ESSENTIAL (PRIMARY) HYPERTENSION Qualifiers: Qualified Code(s): I10 - Essential (primary) hypertension (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 Code(s): E11.610 - TYPE 2 DIABETES MELLITUS W DIABETIC NEUROPATHIC ARTHROPATHY Qualifiers: Qualified Code(s): E11.618 - Type 2 diabetes mellitus with other diabetic arthropathy; Z79.4 - make up editor (current) use of insulin (9) Acute on chronic systolic and diastolic heart failure, NYHA class 1 Assessment/Plan: BNP >15,000 +JVP CXR: continued significant pulmonary vascular congestion and pleural effusion. On IV furosemide. BP elevated. Plan: Continue carvedillol, lisinopril. As discussed with Dr. Snyder, will start spironolactone (25 mg daily). F/u BUN/ Cr, electrolytes. (Pt with chronic renal dysfunction; Cr 1.9-->2.1 this admission). F/u workup for BPH (no Metcalf; has condom "cath"). will reevaluate ef as outpatient when fluid overload resolves. Code(s): I50.43 - ACUTE ON CHRONIC COMBINED SYSTOLIC AND DIASTOLIC HRT FAIL
--- NOTE | 2016-11-07 14:47 | PN ---
Progress Note, Physician History of Present Illness: Pt seen and examined at bedside. He is awake and alert. He feels that his breathing is slowly improving. - Current Medication List Current Medications: Active Medications Acetaminophen (Tylenol -) 650 mg PO Q6H PRN PRN Reason: FEVER OR PAIN Last Admin: 11/05/16 18:54 Dose: 650 mg Albuterol/Ipratropium (Duoneb -) 1 amp NEB Q6H PRN PRN Reason: SHORTNESS OF BREATH Last Admin: 11/04/16 22:30 Dose: 1 amp Aspirin (Ecotrin -) 81 mg PO DAILY [facility] Last Admin: 11/07/16 09:22 Dose: 81 mg Atorvastatin Calcium (Lipitor -) 10 mg PO HS [facility] Last Admin: 11/06/16 21:32 Dose: 10 mg Carvedilol (Coreg -) 12.5 mg PO BID [facility] Last Admin: 11/07/16 09:22 Dose: 12.5 mg Clopidogrel Bisulfate (Plavix -) 75 mg PO DAILY [facility] Last Admin: 11/07/16 09:22 Dose: 75 mg Docusate Sodium (Colace -) 100 mg PO DAILY [facility] Last Admin: 11/07/16 09:33 Dose: 100 mg Donepezil HCl (Aricept -) 5 mg PO DAILY [facility] Last Admin: 11/07/16 09:22 Dose: 5 mg Ergocalciferol (Drisdol -) 50,000 unit PO Q7D@1000 [facility] Ferrous Sulfate (Feosol -) 325 mg PO BID [facility] Last Admin: 11/07/16 09:22 Dose: 325 mg Finasteride (Proscar -) 5 mg PO DAILY [facility] Last Admin: 11/07/16 09:22 Dose: 5 mg Furosemide (Lasix Injection -) 60 mg IVPB BID@0600,1400 [facility] Last Admin: 11/07/16 13:59 Dose: 60 mg Gabapentin (Neurontin -) 300 mg PO BID [facility] Last Admin: 11/07/16 11:29 Dose: 300 mg Insulin Aspart (Novolog Vial Sliding Scale -) 1 vial SQ ACHS [facility] PRN Reason: Protocol Last Admin: 11/07/16 11:25 Dose: Not Given Insulin Detemir (Levemir Vial) 15 units SQ HS [facility] Last Admin: 11/06/16 21:33 Dose: 15 units Isosorbide Mononitrate (Imdur -) 30 mg PO DAILY [facility] Last Admin: 11/07/16 09:30 Dose: 30 mg Levetiracetam (Keppra -) 1,000 mg PO BID [facility] Last Admin: 11/07/16 09:22 Dose: 1,000 mg Lisinopril (Prinivil) 10 mg PO DAILY [facility] Last Admin: 11/07/16 09:22 Dose: 10 mg Methyl Salicylate (Girish-Mai -) 1 applic TP BID [facility] Last Admin: 11/07/16 09:32 Dose: 1 applic Mirtazapine (Remeron -) 15 mg PO HS [facility] Last Admin: 11/06/16 21:32 Dose: 15 mg Nifedipine (Procardia Xl -) 60 mg PO DAILY [facility] Last Admin: 11/07/16 09:31 Dose: 60 mg Ranitidine HCl (Zantac -) 150 mg PO BID [facility] Last Admin: 11/07/16 09:22 Dose: 150 mg Sitagliptin Phosphate (Januvia -) 50 mg PO DAILY@0700 [facility] Last Admin: 11/07/16 06:14 Dose: 50 mg Spironolactone (Aldactone -) 25 mg PO DAILY [facility] Last Admin: 11/07/16 09:22 Dose: 25 mg Tamsulosin HCl (Flomax -) 0.4 mg PO DAILY@0830 [facility] Last Admin: 11/07/16 09:21 Dose: 0.4 mg - Objective Vital Signs: Vital Signs Temperature 98.2 F 11/07/16 05:25 Pulse Rate 61 11/07/16 05:25 Respiratory Rate 20 11/07/16 05:25 Blood Pressure 156/70 11/07/16 05:25 O2 Sat by Pulse Oximetry (%) 98 11/07/16 06:10 Constitutional: Yes: Calm Eyes: Yes: Conjunctiva Clear HENT: Yes: Atraumatic Neck: Yes: Supple Cardiovascular: Yes: S1, S2 Respiratory: Yes: On Nasal O2, Rhonchi Gastrointestinal: Yes: Soft Musculoskeletal: Yes: Muscle Weakness Edema: Yes Neurological: Yes: Oriented, Pre-Existing Deficit Labs: CBC, BMP 11/07/16 05:35 11/07/16 05:35 INR, PTT INR 1.19 (0.82-1.09) H D 11/01/16 13:09 Problem List - Problems (1) CHF (congestive heart failure) Code(s): I50.9 - HEART FAILURE, UNSPECIFIED Qualifiers: Qualified Code(s): I50.43 - Acute on chronic combined systolic ( congestive) and diastolic (congestive) heart failure (2) Stented coronary artery Code(s): Z95.5 - PRESENCE OF CORONARY ANGIOPLASTY IMPLANT AND GRAFT (3) CKD (chronic kidney disease) Code(s): N18.9 - CHRONIC KIDNEY DISEASE, UNSPECIFIED (4) COPD (chronic obstructive pulmonary disease) Code(s): J44.9 - CHRONIC OBSTRUCTIVE PULMONARY DISEASE, UNSPECIFIED Assessment/Plan Current Medications Generic Name Dose Route Start Last Admin Trade Name Freq PRN Reason Stop Dose Admin Acetaminophen 650 mg 11/01/16 19:45 11/05/16 18:54 Tylenol - PO 650 mg Q6H PRN Administration FEVER OR PAIN Albuterol/Ipratropium 1 amp 11/01/16 19:45 11/04/16 22:30 Duoneb - NEB 1 amp Q6H PRN Administration SHORTNESS OF BREATH Aspirin 81 mg 11/02/16 10:00 11/07/16 09:22 Ecotrin - PO 81 mg DAILY [facility] Administration Atorvastatin Calcium 10 mg 11/01/16 22:00 11/06/16 21:32 Lipitor - PO 10 mg HS [facility] Administration Carvedilol 12.5 mg 11/01/16 22:00 11/07/16 09:22 Coreg - PO 12.5 mg BID [facility] Administration Clopidogrel Bisulfate 75 mg 11/02/16 10:00 11/07/16 09:22 Plavix - PO 75 mg DAILY [facility] Administration Docusate Sodium 100 mg 11/02/16 10:00 11/07/16 09:33 Colace - PO 100 mg DAILY [facility] Administration Donepezil HCl 5 mg 11/02/16 10:00 11/07/16 09:22 Aricept - PO 5 mg DAILY [facility] Administration Ergocalciferol 50,000 unit 11/08/16 10:00 Drisdol - PO Q7D@1000 [facility] Ferrous Sulfate 325 mg 11/01/16 22:00 11/07/16 09:22 Feosol - PO 325 mg BID [facility] Administration Finasteride 5 mg 11/02/16 10:00 11/07/16 09:22 Proscar - PO 5 mg DAILY [facility] Administration Furosemide 60 mg 11/05/16 06:00 11/07/16 13:59 Lasix Injection - IVPB 60 mg BID@0600,1400 [facility] Administration Gabapentin 300 mg 11/01/16 22:00 11/07/16 11:29 Neurontin - PO 300 mg BID [facility] Administration Insulin Aspart 1 vial 11/01/16 22:00 11/07/16 11:25 Novolog Vial Sliding Scale - SQ Not Given ACHS [facility] Protocol Insulin Detemir 15 units 11/01/16 22:00 11/06/16 21:33 Levemir Vial SQ 15 units HS [facility] Administration Isosorbide Mononitrate 30 mg 11/02/16 10:00 11/07/16 09:30 Imdur - PO 30 mg DAILY [facility] Administration Levetiracetam 1,000 mg 11/01/16 22:00 11/07/16 09:22 Keppra - PO 1,000 mg BID [facility] Administration Lisinopril 10 mg 11/02/16 10:00 11/07/16 09:22 Prinivil PO 10 mg DAILY [facility] Administration Methyl Salicylate 1 applic 11/02/16 10:00 11/07/16 09:32 Girish-Mai - TP 1 applic BID [facility] Administration Mirtazapine 15 mg 11/01/16 22:00 11/06/16 21:32 Remeron - PO 15 mg HS [facility] Administration Nifedipine 60 mg 11/02/16 10:00 11/07/16 09:31 Procardia Xl - PO 60 mg DAILY [facility] Administration Ranitidine HCl 150 mg 11/06/16 10:00 11/07/16 09:22 Zantac - PO 150 mg BID [facility] Administration Sitagliptin Phosphate 50 mg 11/02/16 07:00 11/07/16 06:14 Januvia - PO 50 mg DAILY@0700 [facility] Administration Spironolactone 25 mg 11/06/16 11:30 11/07/16 09:22 Aldactone - PO 25 mg DAILY [facility] Administration Tamsulosin HCl 0.4 mg 11/02/16 08:30 11/07/16 09:21 Flomax - PO 0.4 mg DAILY@0830 [facility] Administration Impression 1. CKD 2. hypoxia 3. hx CVA 4. DM 5. epilepsy 6. hyperlipidemia 7. hx anemia 8. hx a-fib 9. hypokalemia 10. CAD 11. acute CHF Plan - will keep on lasix - cont aldactone - monitor lytes closely - cont oxygen and monitor pulse ox - will see pt in office after discharge - can keep on michael - will follow Dr Jc
[2016-11-07] MEDS ORDERED: levETIRAcetam 250 MG TABLET (FP) PO ONE (21:05)
[2016-11-07] MEDS: ATORVASTATIN CA 10 MG TABLET (FP) PO SCH (21:34)
[2016-11-07] MEDS: INSULIN DETEMIR 100 UNITS/ML MDV SQ SCH (21:34)
[2016-11-07] MEDS: MIRTAZAPINE 15 MG TABLET (FP) PO SCH (21:35)
--- NOTE | 2016-11-08 06:49 | PN ---
Progress Note, Physician - Current Medication List Current Medications: Active Medications Acetaminophen (Tylenol -) 650 mg PO Q6H PRN PRN Reason: FEVER OR PAIN Last Admin: 11/05/16 18:54 Dose: 650 mg Albuterol/Ipratropium (Duoneb -) 1 amp NEB Q6H PRN PRN Reason: SHORTNESS OF BREATH Last Admin: 11/04/16 22:30 Dose: 1 amp Aspirin (Ecotrin -) 81 mg PO DAILY [facility] Last Admin: 11/07/16 09:22 Dose: 81 mg Atorvastatin Calcium (Lipitor -) 10 mg PO HS [facility] Last Admin: 11/07/16 21:34 Dose: 10 mg Carvedilol (Coreg -) 12.5 mg PO BID [facility] Last Admin: 11/07/16 21:33 Dose: 12.5 mg Clopidogrel Bisulfate (Plavix -) 75 mg PO DAILY [facility] Last Admin: 11/07/16 09:22 Dose: 75 mg Docusate Sodium (Colace -) 100 mg PO DAILY [facility] Last Admin: 11/07/16 09:33 Dose: 100 mg Donepezil HCl (Aricept -) 5 mg PO DAILY [facility] Last Admin: 11/07/16 09:22 Dose: 5 mg Ergocalciferol (Drisdol -) 50,000 unit PO Q7D@1000 [facility] Ferrous Sulfate (Feosol -) 325 mg PO BID [facility] Last Admin: 11/07/16 21:33 Dose: 325 mg Finasteride (Proscar -) 5 mg PO DAILY [facility] Last Admin: 11/07/16 09:22 Dose: 5 mg Furosemide (Lasix Injection -) 60 mg IVPB BID@0600,1400 [facility] Last Admin: 11/07/16 13:59 Dose: 60 mg Gabapentin (Neurontin -) 300 mg PO BID [facility] Last Admin: 11/07/16 21:34 Dose: 300 mg Insulin Aspart (Novolog Vial Sliding Scale -) 1 vial SQ ACHS [facility] PRN Reason: Protocol Last Admin: 11/07/16 21:35 Dose: 4 units Insulin Detemir (Levemir Vial) 15 units SQ HS [facility] Last Admin: 11/07/16 21:34 Dose: 15 units Isosorbide Mononitrate (Imdur -) 30 mg PO DAILY [facility] Last Admin: 11/07/16 09:30 Dose: 30 mg Levetiracetam (Keppra -) 1,000 mg PO BID [facility] Last Admin: 11/07/16 21:34 Dose: 1,000 mg Lisinopril (Prinivil) 10 mg PO DAILY [facility] Last Admin: 11/07/16 09:22 Dose: 10 mg Methyl Salicylate (Girish-Mai -) 1 applic TP BID [facility] Last Admin: 11/07/16 21:33 Dose: Not Given Mirtazapine (Remeron -) 15 mg PO HS [facility] Last Admin: 11/07/16 21:35 Dose: 15 mg Nifedipine (Procardia Xl -) 60 mg PO DAILY [facility] Last Admin: 11/07/16 09:31 Dose: 60 mg Ranitidine HCl (Zantac -) 150 mg PO BID [facility] Last Admin: 11/07/16 21:35 Dose: 150 mg Sitagliptin Phosphate (Januvia -) 50 mg PO DAILY@0700 [facility] Last Admin: 11/07/16 06:14 Dose: 50 mg Spironolactone (Aldactone -) 25 mg PO DAILY [facility] Last Admin: 11/07/16 09:22 Dose: 25 mg Tamsulosin HCl (Flomax -) 0.4 mg PO DAILY@0830 [facility] Last Admin: 11/07/16 09:21 Dose: 0.4 mg - Objective Vital Signs: Vital Signs Temperature 97.0 F L 11/08/16 05:46 Pulse Rate 60 11/08/16 05:46 Respiratory Rate 20 11/08/16 05:46 Blood Pressure 146/76 11/08/16 05:46 O2 Sat by Pulse Oximetry (%) 100 11/08/16 00:32 Neck: Yes: WNL Cardiovascular: Yes: WNL Respiratory: Yes: Rhonchi Gastrointestinal: Yes: WNL Labs: CBC, BMP 11/07/16 05:35 11/07/16 05:35 INR, PTT INR 1.19 (0.82-1.09) H D 11/01/16 13:09 Assessment/Plan (1) Acute on chronic respiratory failure with hypoxia and hypercapnia Code(s): J96.21 - ACUTE AND CHRONIC RESPIRATORY FAILURE WITH HYPOXIA J96.22 - ACUTE AND CHRONIC RESPIRATORY FAILURE WITH HYPERCAPNIA (2) Acute on chronic systolic and diastolic heart failure, NYHA class 1 Code(s): I50.43 - ACUTE ON CHRONIC COMBINED SYSTOLIC AND DIASTOLIC HRT FAIL (3) Acute respiratory disease Code(s): J06.9 - ACUTE UPPER RESPIRATORY INFECTION, UNSPECIFIED (4) Atrial flutter Code(s): I48.92 - UNSPECIFIED ATRIAL FLUTTER Qualifiers: Qualified Code(s): I48.92 - Unspecified atrial flutter (5) Atypical chest pain Code(s): R07.89 - OTHER CHEST PAIN (6) Chronic systolic CHF (congestive heart failure) Code(s): I50.22 - CHRONIC SYSTOLIC (CONGESTIVE) HEART FAILURE (7) Pacemaker Code(s): Z95.0 - PRESENCE OF CARDIAC PACEMAKER (8) Acute on chronic renal failure Code(s): N17.9 - ACUTE KIDNEY FAILURE, UNSPECIFIED N18.9 - CHRONIC KIDNEY DISEASE, UNSPECIFIED (9) Acute on chronic systolic (congestive) heart failure Code(s): I50.23 - ACUTE ON CHRONIC SYSTOLIC (CONGESTIVE) HEART FAILURE (10) Acute respiratory failure Code(s): J96.00 - ACUTE RESPIRATORY FAILURE, UNSP W HYPOXIA OR HYPERCAPNIA (11) Diabetes mellitus Code(s): E11.9 - TYPE 2 DIABETES MELLITUS WITHOUT COMPLICATIONS Qualifiers: Qualified Code(s): E10.65 - Type 1 diabetes mellitus with hyperglycemia (12) HTN (hypertension) Code(s): I10 - ESSENTIAL (PRIMARY) HYPERTENSION Qualifiers: Qualified Code(s): I10 - Essential (primary) hypertension Assessment/Plan ACUTE CHF INCREASED DIURETICS IV & PO RENAL AND CARDIOLOGY EVAL APPRECIATED MONITOR LABS MONITOR OUTPUT DAILY WEIGHTS 02 SUPPORT PATIENT IS NOT FOLLOWING A CHF/ADA/RENAL DIET DIETARY EVAL, EATING HOT DOGS BROUGHT FROM HOME BY THE FAMILY -> NUTRITION ON CASE NO PPI. 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
[2016-11-08] MEDS: INSULIN SLIDING SCALE (NOVOLOG) 1 VIAL SQ SCH ×4 (06:52→22:06)
[2016-11-08] MEDS: sitaGLIPtin PHOSPHATE 50 MG TABLET PO SCH (06:53)
[2016-11-08] MEDS: FUROSEMIDE 100 MG/10 ML INJECTABLE VIAL IVPB SCH ×2 (06:53→13:43)
[2016-11-08] MEDS ORDERED: levETIRAcetam 250 MG TABLET (FP) PO ONE (08:22)
[2016-11-08 08:28] LABS: BASOPHIL 0.6 % (0-2.0); EOSINOPHIL 5.5 % (0-4.5); MCH 24.2 pg (25.7-33.7); MEAN CELL VOLUME 77.9 fl (80-96); MEAN PLT VOLUME 8.9 fl (7.5-11.1); NEUTROPHILS 70.5 % (42.8-82.8); PLATELET COUNT 174 K/MM3 (134-434); RDW 18.2 % (11.9-15.9); WHITE BLOOD COUNT 6.4 K/mm3 (4.0-10.0)
[2016-11-08 09:01] LABS: CALCIUM 7.8 mg/dL (8.5-10.1); COCKROFT - GAULT 40.09
[2016-11-08] MEDS: NIFEdipine E.R 60 MG TABLET (UD) PO SCH (09:47)
[2016-11-08] MEDS: TAMSULOSIN HCL 0.4 MG CAP.ER.24H (FP) PO SCH (09:47)
[2016-11-08] MEDS: FINASTERIDE 5 MG TABLET (FP) PO SCH (09:47)
[2016-11-08] MEDS: ASPIRIN COATED 81 MG TABLET.EC PO SCH (09:48)
[2016-11-08] MEDS: LISINOPRIL 10 MG TABLET (FP) PO SCH (09:48)
[2016-11-08] MEDS: DONEPEZIL HCL 5 MG TABLET (FP) PO SCH (09:48)
[2016-11-08] MEDS: ISOSORBIDE MONONITRATE 30 MG TAB.SR.24H (FP) PO SCH (09:48)
[2016-11-08] MEDS: DOCUSATE SODIUM 100 MG CAPSULE (FP) PO SCH (09:49)
[2016-11-08] MEDS: CLOPIDOGREL BISULFATE 75 MG TABLET (FP) PO SCH (09:49)
[2016-11-08] MEDS: levETIRAcetam 500 MG TABLET (FP) PO SCH ×2 (09:49→22:03)
[2016-11-08] MEDS: FERROUS SO4 325 MG TABLET (FP) PO SCH ×2 (09:49→22:02)
[2016-11-08] MEDS: CARVEDILOL 12.5 MG TABLET (FP) PO SCH ×2 (09:49→22:03)
[2016-11-08] MEDS: GABAPENTIN 300 MG CAPSULE (FP) PO SCH ×2 (09:50→22:02)
[2016-11-08] MEDS ORDERED: ERGOCALCIFEROL (VITAMIN D2) 50,000 UNIT CAPSULE (FP) PO SCH (10:00)
[2016-11-08] MEDS: RANITIDINE HCL 150 MG TABLET (FP) PO SCH ×2 (10:03→22:02)
[2016-11-08] MEDS: METHYL SALICYLATE/MENTHOL OINT 30 GM TUBE TP SCH ×2 (10:03→22:08)
[2016-11-08] MEDS: SPIRONOLACTONE 25 MG TABLET (FP) PO SCH (10:03)
--- NOTE | 2016-11-08 12:42 | PN ---
Progress Note, Physician History of Present Illness: pulmonary alert,feeling better,less dyspneic,-cp - Current Medication List Current Medications: Active Medications Acetaminophen (Tylenol -) 650 mg PO Q6H PRN PRN Reason: FEVER OR PAIN Last Admin: 11/05/16 18:54 Dose: 650 mg Albuterol/Ipratropium (Duoneb -) 1 amp NEB Q6H PRN PRN Reason: SHORTNESS OF BREATH Last Admin: 11/04/16 22:30 Dose: 1 amp Aspirin (Ecotrin -) 81 mg PO DAILY [facility] Last Admin: 11/08/16 09:48 Dose: 81 mg Atorvastatin Calcium (Lipitor -) 10 mg PO HS [facility] Last Admin: 11/07/16 21:34 Dose: 10 mg Carvedilol (Coreg -) 12.5 mg PO BID [facility] Last Admin: 11/08/16 09:49 Dose: 12.5 mg Clopidogrel Bisulfate (Plavix -) 75 mg PO DAILY [facility] Last Admin: 11/08/16 09:49 Dose: 75 mg Docusate Sodium (Colace -) 100 mg PO DAILY [facility] Last Admin: 11/08/16 09:49 Dose: 100 mg Donepezil HCl (Aricept -) 5 mg PO DAILY [facility] Last Admin: 11/08/16 09:48 Dose: 5 mg Ergocalciferol (Drisdol -) 50,000 unit PO Q7D@1000 [facility] Last Admin: 11/08/16 12:35 Dose: 50,000 unit Ferrous Sulfate (Feosol -) 325 mg PO BID [facility] Last Admin: 11/08/16 09:49 Dose: 325 mg Finasteride (Proscar -) 5 mg PO DAILY [facility] Last Admin: 11/08/16 09:47 Dose: 5 mg Furosemide (Lasix Injection -) 60 mg IVPB BID@0600,1400 [facility] Last Admin: 11/08/16 06:53 Dose: 60 mg Gabapentin (Neurontin -) 300 mg PO BID [facility] Last Admin: 11/08/16 09:50 Dose: 300 mg Insulin Aspart (Novolog Vial Sliding Scale -) 1 vial SQ [facility] PRN Reason: Protocol Last Admin: 11/08/16 11:52 Dose: 2 units Insulin Detemir (Levemir Vial) 15 units SQ [facility] Last Admin: 11/07/16 21:34 Dose: 15 units Isosorbide Mononitrate (Imdur -) 30 mg PO DAILY [facility] Last Admin: 11/08/16 09:48 Dose: 30 mg Levetiracetam (Keppra -) 1,000 mg PO BID [facility] Last Admin: 11/08/16 09:49 Dose: 1,000 mg Lisinopril (Prinivil) 10 mg PO DAILY [facility] Last Admin: 11/08/16 09:48 Dose: 10 mg Methyl Salicylate (Girish-Mai -) 1 applic TP BID [facility] Last Admin: 11/08/16 10:03 Dose: 1 applic Mirtazapine (Remeron -) 15 mg PO HS [facility] Last Admin: 11/07/16 21:35 Dose: 15 mg Nifedipine (Procardia Xl -) 60 mg PO DAILY [facility] Last Admin: 11/08/16 09:47 Dose: 60 mg Ranitidine HCl (Zantac -) 150 mg PO BID [facility] Last Admin: 11/08/16 10:03 Dose: 150 mg Sitagliptin Phosphate (Januvia -) 50 mg PO DAILY@0700 [facility] Last Admin: 11/08/16 06:53 Dose: 50 mg Spironolactone (Aldactone -) 25 mg PO DAILY [facility] Last Admin: 11/08/16 10:03 Dose: 25 mg Tamsulosin HCl (Flomax -) 0.4 mg PO DAILY@0830 [facility] Last Admin: 11/08/16 09:47 Dose: 0.4 mg - Objective Vital Signs: Vital Signs Temperature 97.0 F L 11/08/16 05:46 Pulse Rate 60 11/08/16 10:35 Respiratory Rate 20 11/08/16 05:46 Blood Pressure 146/76 11/08/16 05:46 O2 Sat by Pulse Oximetry (%) 100 11/08/16 10:35 Constitutional: Yes: Well Nourished, Calm Eyes: Yes: WNL HENT: Yes: WNL Neck: Yes: WNL Cardiovascular: Yes: Regular Rate and Rhythm, S1, S2 Respiratory: Yes: Diminished, Rales (few bibasilar crackles) Extremities: Yes: WNL Edema: Yes Labs: CBC, BMP 11/08/16 06:10 11/08/16 06:10 INR, PTT INR 1.19 (0.82-1.09) H D 11/01/16 13:09 Problem List - Problems (1) Acute on chronic systolic and diastolic heart failure, NYHA class 1 Code(s): I50.43 - ACUTE ON CHRONIC COMBINED SYSTOLIC AND DIASTOLIC HRT FAIL (2) Acute respiratory disease Code(s): J06.9 - ACUTE UPPER RESPIRATORY INFECTION, UNSPECIFIED (3) Altered mental status Code(s): R41.82 - ALTERED MENTAL STATUS, UNSPECIFIED Qualifiers: Qualified Code(s): R41.0 - Disorientation, unspecified (4) Atypical chest pain Code(s): R07.89 - OTHER CHEST PAIN (5) CHF (congestive heart failure) Code(s): I50.9 - HEART FAILURE, UNSPECIFIED Qualifiers: Qualified Code(s): I50.43 - Acute on chronic combined systolic ( congestive) and diastolic (congestive) heart failure (6) Dementia Code(s): F03.90 - UNSPECIFIED DEMENTIA WITHOUT BEHAVIORAL DISTURBANCE (7) Epilepsy Code(s): G40.909 - EPILEPSY, UNSP, NOT INTRACTABLE, WITHOUT STATUS EPILEPTICUS (8) Stented coronary artery Code(s): Z95.5 - PRESENCE OF CORONARY ANGIOPLASTY IMPLANT AND GRAFT (9) ASHD (arteriosclerotic heart disease) Code(s): I25.10 - ATHSCL HEART DISEASE OF [place] CORONARY ARTERY W/O ANG PCTRS (10) Acute respiratory failure Code(s): J96.00 - ACUTE RESPIRATORY FAILURE, UNSP W HYPOXIA OR HYPERCAPNIA (11) CKD (chronic kidney disease) Code(s): N18.9 - CHRONIC KIDNEY DISEASE, UNSPECIFIED (12) CVA (cerebral vascular accident) Code(s): I63.9 - CEREBRAL INFARCTION, UNSPECIFIED (13) Chest pain Code(s): R07.9 - CHEST PAIN, UNSPECIFIED (14) Diabetes mellitus Code(s): E11.9 - TYPE 2 DIABETES MELLITUS WITHOUT COMPLICATIONS Qualifiers: Qualified Code(s): E10.65 - Type 1 diabetes mellitus with hyperglycemia (15) Difficulty breathing Code(s): R06.89 - OTHER ABNORMALITIES OF BREATHING (16) GERD (gastroesophageal reflux disease) Code(s): K21.9 - GASTRO-ESOPHAGEAL REFLUX DISEASE WITHOUT ESOPHAGITIS (17) HLD (hyperlipidemia) Code(s): E78.5 - HYPERLIPIDEMIA, UNSPECIFIED (18) HTN (hypertension) Code(s): I10 - ESSENTIAL (PRIMARY) HYPERTENSION Qualifiers: Qualified Code(s): I10 - Essential (primary) hypertension (19) Hypoxia Code(s): R09.02 - HYPOXEMIA (20) Seizure disorder Code(s): G40.909 - EPILEPSY, UNSP, NOT INTRACTABLE, WITHOUT STATUS EPILEPTICUS (21) Acute on chronic respiratory failure with hypoxia and hypercapnia Code(s): J96.21 - ACUTE AND CHRONIC RESPIRATORY FAILURE WITH HYPOXIA J96.22 - ACUTE AND CHRONIC RESPIRATORY FAILURE WITH HYPERCAPNIA Assessment/Plan IMP ACUTE ON CHRONIC HYPOXEMIC/HYPERCAPNEIC RESPIRATORY FAILURE improving DECOMPENSATED CHF improving ASHD S/P [place],S/P STENTS AFIB HTN S/P CVA WITH R HEMIPARESIS SEIZURE DISORDER DM CKD PLAN CONT IV LASIX,ALDACTONE O2 TO MAINTAIN O2 SAT 90% OR GREATER INHALED BRONCHODILATORS MONITOR LYTES,RENAL DAILY WTS DR TORRES Problem List - Problems (1) Acute on chronic systolic and diastolic heart failure, NYHA class 1 Code(s): I50.43 - ACUTE ON CHRONIC COMBINED SYSTOLIC AND DIASTOLIC HRT FAIL (2) Acute respiratory disease Code(s): J06.9 - ACUTE UPPER RESPIRATORY INFECTION, UNSPECIFIED (3) Altered mental status Code(s): R41.82 - ALTERED MENTAL STATUS, UNSPECIFIED Qualifiers: Altered mental status type: disorientation Qualified Code(s): R41.0 - Disorientation, unspecified (4) Atypical chest pain Code(s): R07.89 - OTHER CHEST PAIN (5) CHF (congestive heart failure) Code(s): I50.9 - HEART FAILURE, UNSPECIFIED Qualifiers: Congestive heart failure type: combined Congestive heart failure chronicity: acute on chronic Qualified Code(s): I50.43 - Acute on chronic combined systolic (congestive) and diastolic (congestive) heart failure (6) Dementia Code(s): F03.90 - UNSPECIFIED DEMENTIA WITHOUT BEHAVIORAL DISTURBANCE Qualifiers: Dementia behavioral disturbance: without behavioral disturbance (7) Epilepsy Code(s): G40.909 - EPILEPSY, UNSP, NOT INTRACTABLE, WITHOUT STATUS EPILEPTICUS (8) Stented coronary artery Code(s): Z95.5 - PRESENCE OF CORONARY ANGIOPLASTY IMPLANT AND GRAFT (9) ASHD (arteriosclerotic heart disease) Code(s): I25.10 - ATHSCL HEART DISEASE OF [place] CORONARY ARTERY W/O ANG PCTRS (10) Acute respiratory failure Code(s): J96.00 - ACUTE RESPIRATORY FAILURE, UNSP W HYPOXIA OR HYPERCAPNIA (11) CKD (chronic kidney disease) Code(s): N18.9 - CHRONIC KIDNEY DISEASE, UNSPECIFIED (12) CVA (cerebral vascular accident) Code(s): I63.9 - CEREBRAL INFARCTION, UNSPECIFIED Qualifiers: Precerebral and cerebral artery: unspecified precerebral artery (13) Chest pain Code(s): R07.9 - CHEST PAIN, UNSPECIFIED Qualifiers: Chest pain type: precordial chest pain (14) Diabetes mellitus Code(s): E11.9 - TYPE 2 DIABETES MELLITUS WITHOUT COMPLICATIONS Qualifiers: Diabetes mellitus type: type 1 Diabetes mellitus complication status: with hyperglycemia Qualified Code(s): E10.65 - Type 1 diabetes mellitus with hyperglycemia (15) Difficulty breathing Code(s): R06.89 - OTHER ABNORMALITIES OF BREATHING (16) GERD (gastroesophageal reflux disease) Code(s): K21.9 - GASTRO-ESOPHAGEAL REFLUX DISEASE WITHOUT ESOPHAGITIS (17) HLD (hyperlipidemia) Code(s): E78.5 - HYPERLIPIDEMIA, UNSPECIFIED (18) HTN (hypertension) Code(s): I10 - ESSENTIAL (PRIMARY) HYPERTENSION Qualifiers: Hypertension type: essential hypertension Qualified Code(s): I10 - Essential (primary) hypertension (19) Hypoxia Code(s): R09.02 - HYPOXEMIA (20) Seizure disorder Code(s): G40.909 - EPILEPSY, UNSP, NOT INTRACTABLE, WITHOUT STATUS EPILEPTICUS (21) Acute on chronic respiratory failure with hypoxia and hypercapnia Code(s): J96.21 - ACUTE AND CHRONIC RESPIRATORY FAILURE WITH HYPOXIA J96.22 - ACUTE AND CHRONIC RESPIRATORY FAILURE WITH HYPERCAPNIA
--- NOTE | 2016-11-08 14:41 | PN ---
Progress Note, Physician Chief Complaint: Pt Alert; denies chest pain or dyspnea. Cough still imtermittent. History of Present Illness: The patient is a 62-year-old man (b. [place]), accompanied by and daughter, with a significant past medical history severe systolic heart failure- ->ICD, CAD-->PCI, hypertension, chronic obstructive pulmonary disease ( requiring intubation on 2005), emphysema, ?dementia, who presents to the emergency department via EMS for further evaluation of shortness of breath. HPI limited as patient arrives in severe respiratory distress. As per patient's , his symptoms started approximately 1 month ago with an intermittent productive cough with yellow-green sputum. She states that his symptoms worsened over the the past 3 days, as he became increasingly short of breath. EMS was activated today, and on arrival, the patient was noted to be in the low 90s on a non-rebreather and was found to have diffuse expiratory wheezes in the field, and was in respiratory distress. He was given 10 milligrams of Decadron and received a second Combivent. He was also placed on BiPAP, with noted improvement of his shortness of breath and oxygen saturation of 98%. No fever, chills, sick contacts. History provided by EMS, old records and pts who is with him Daughter and say pt has shown little response over the past 2 hours; prior to that, he was talking. Allergies: No Known Drug Allergies. Past Surgical History: None reported Social History: Former cigarette use. No ETOH and recreational drug use. Primary Care Physician: Dr. Damaris Bautista Women'S Studies Lecturer: Dr. Saqib Galaviz (Affiliated with [facility]) - Current Medication List Current Medications: Active Medications Acetaminophen (Tylenol -) 650 mg PO Q6H PRN PRN Reason: FEVER OR PAIN Last Admin: 11/05/16 18:54 Dose: 650 mg Albuterol/Ipratropium (Duoneb -) 1 amp NEB Q6H PRN PRN Reason: SHORTNESS OF BREATH Last Admin: 11/04/16 22:30 Dose: 1 amp Aspirin (Ecotrin -) 81 mg PO DAILY [facility] Last Admin: 11/08/16 09:48 Dose: 81 mg Atorvastatin Calcium (Lipitor -) 10 mg PO HS [facility] Last Admin: 11/07/16 21:34 Dose: 10 mg Carvedilol (Coreg -) 12.5 mg PO BID [facility] Last Admin: 11/08/16 09:49 Dose: 12.5 mg Clopidogrel Bisulfate (Plavix -) 75 mg PO DAILY [facility] Last Admin: 11/08/16 09:49 Dose: 75 mg Docusate Sodium (Colace -) 100 mg PO DAILY [facility] Last Admin: 11/08/16 09:49 Dose: 100 mg Donepezil HCl (Aricept -) 5 mg PO DAILY [facility] Last Admin: 11/08/16 09:48 Dose: 5 mg Ergocalciferol (Drisdol -) 50,000 unit PO Q7D@1000 [facility] Last Admin: 11/08/16 12:35 Dose: 50,000 unit Ferrous Sulfate (Feosol -) 325 mg PO BID [facility] Last Admin: 11/08/16 09:49 Dose: 325 mg Finasteride (Proscar -) 5 mg PO DAILY [facility] Last Admin: 11/08/16 09:47 Dose: 5 mg Furosemide (Lasix Injection -) 60 mg IVPB BID@0600,1400 [facility] Last Admin: 11/08/16 13:43 Dose: 60 mg Gabapentin (Neurontin -) 300 mg PO BID [facility] Last Admin: 11/08/16 09:50 Dose: 300 mg Insulin Aspart (Novolog Vial Sliding Scale -) 1 vial SQ [facility] PRN Reason: Protocol Last Admin: 11/08/16 11:52 Dose: 2 units Insulin Detemir (Levemir Vial) 15 units SQ HS [facility] Last Admin: 11/07/16 21:34 Dose: 15 units Isosorbide Mononitrate (Imdur -) 30 mg PO DAILY [facility] Last Admin: 11/08/16 09:48 Dose: 30 mg Levetiracetam (Keppra -) 1,000 mg PO BID [facility] Last Admin: 11/08/16 09:49 Dose: 1,000 mg Lisinopril (Prinivil) 10 mg PO DAILY [facility] Last Admin: 11/08/16 09:48 Dose: 10 mg Methyl Salicylate (Girish-Mai -) 1 applic TP BID [facility] Last Admin: 11/08/16 10:03 Dose: 1 applic Mirtazapine (Remeron -) 15 mg PO HS [facility] Last Admin: 11/07/16 21:35 Dose: 15 mg Nifedipine (Procardia Xl -) 60 mg PO DAILY [facility] Last Admin: 11/08/16 09:47 Dose: 60 mg Ranitidine HCl (Zantac -) 150 mg PO BID [facility] Last Admin: 11/08/16 10:03 Dose: 150 mg Sitagliptin Phosphate (Januvia -) 50 mg PO DAILY@0700 [facility] Last Admin: 11/08/16 06:53 Dose: 50 mg Spironolactone (Aldactone -) 25 mg PO DAILY [facility] Last Admin: 11/08/16 10:03 Dose: 25 mg Tamsulosin HCl (Flomax -) 0.4 mg PO DAILY@0830 [facility] Last Admin: 11/08/16 09:47 Dose: 0.4 mg - Objective Vital Signs: Vital Signs Temperature 97.7 F 11/08/16 14:08 Pulse Rate 61 11/08/16 14:08 Respiratory Rate 20 11/08/16 14:08 Blood Pressure 129/62 11/08/16 14:08 O2 Sat by Pulse Oximetry (%) 100 11/08/16 10:35 Constitutional: Yes: Anxious Eyes: Yes: WNL HENT: Yes: WNL Neck: Yes: WNL Cardiovascular: Yes: Regular Rate and Rhythm Respiratory: Yes: WNL Gastrointestinal: Yes: Soft ...Rectal Exam: Yes: Deferred Genitourinary: No: Anuria Breast(s): Yes: WNL Musculoskeletal: Yes: Muscle Weakness Extremities: Yes: WNL Edema: No Peripheral Pulses WNL: No Integumentary: Yes: WNL Wound/Incision: Yes: Clean/Dry Neurological: Yes: Alert, Oriented, Weakness Psychiatric: Yes: Alert, Oriented Labs: CBC, BMP 11/08/16 06:10 11/08/16 06:10 INR, PTT INR 1.19 (0.82-1.09) H D 11/01/16 13:09 Problem List - Problems (1) Acute respiratory disease Assessment/Plan: Bipap, bronchodilators, steroids, antibiotics per pulmonary and ID. Code(s): J06.9 - ACUTE UPPER RESPIRATORY INFECTION, UNSPECIFIED (2) Atrial flutter Assessment/Plan: on carvedilol for HR control (and systolic CHF). On ASA and clopidogrel (CAD; ?hx GI bleed precludes addition of anticoagulant). Code(s): I48.92 - UNSPECIFIED ATRIAL FLUTTER Qualifiers: (3) Stented coronary artery Code(s): Z95.5 - PRESENCE OF CORONARY ANGIOPLASTY IMPLANT AND GRAFT (4) CVA (cerebral infarction) Code(s): I63.9 - CEREBRAL INFARCTION, UNSPECIFIED Qualifiers: Qualified Code(s): I63.9 - Cerebral infarction, unspecified (5) GERD (gastroesophageal reflux disease) Code(s): K21.9 - GASTRO-ESOPHAGEAL REFLUX DISEASE WITHOUT ESOPHAGITIS (6) HLD (hyperlipidemia) Code(s): E78.5 - HYPERLIPIDEMIA, UNSPECIFIED (7) HTN (hypertension) Code(s): I10 - ESSENTIAL (PRIMARY) HYPERTENSION Qualifiers: Qualified Code(s): I10 - Essential (primary) hypertension (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 On IV furosemide. BP elevated. Plan: Continue carvedillol, lisinopril. As discussed with Dr. Snyder, start spironolactone (25 mg daily). F/u BUN/Cr, electrolytes. (Pt with chronic renal dysfunction; Cr 1.9-->2.1 this admission). F/u workup for BPH (no Metcalf; has condom "cath"). Code(s): I50.43 - ACUTE ON CHRONIC COMBINED SYSTOLIC AND DIASTOLIC HRT FAIL
--- NOTE | 2016-11-08 16:45 | PN ---
Progress Note, Physician History of Present Illness: Pt seen and examined at bedside. He is awake and alert. He feels that his breathing is improving. - Current Medication List Current Medications: Active Medications Acetaminophen (Tylenol -) 650 mg PO Q6H PRN PRN Reason: FEVER OR PAIN Last Admin: 11/05/16 18:54 Dose: 650 mg Albuterol/Ipratropium (Duoneb -) 1 amp NEB Q6H PRN PRN Reason: SHORTNESS OF BREATH Last Admin: 11/04/16 22:30 Dose: 1 amp Aspirin (Ecotrin -) 81 mg PO DAILY [facility] Last Admin: 11/08/16 09:48 Dose: 81 mg Atorvastatin Calcium (Lipitor -) 10 mg PO HS [facility] Last Admin: 11/07/16 21:34 Dose: 10 mg Carvedilol (Coreg -) 12.5 mg PO BID [facility] Last Admin: 11/08/16 09:49 Dose: 12.5 mg Clopidogrel Bisulfate (Plavix -) 75 mg PO DAILY [facility] Last Admin: 11/08/16 09:49 Dose: 75 mg Docusate Sodium (Colace -) 100 mg PO DAILY [facility] Last Admin: 11/08/16 09:49 Dose: 100 mg Donepezil HCl (Aricept -) 5 mg PO DAILY [facility] Last Admin: 11/08/16 09:48 Dose: 5 mg Ergocalciferol (Drisdol -) 50,000 unit PO Q7D@1000 [facility] Last Admin: 11/08/16 12:35 Dose: 50,000 unit Ferrous Sulfate (Feosol -) 325 mg PO BID [facility] Last Admin: 11/08/16 09:49 Dose: 325 mg Finasteride (Proscar -) 5 mg PO DAILY [facility] Last Admin: 11/08/16 09:47 Dose: 5 mg Furosemide (Lasix Injection -) 60 mg IVPB BID@0600,1400 [facility] Last Admin: 11/08/16 13:43 Dose: 60 mg Gabapentin (Neurontin -) 300 mg PO BID [facility] Last Admin: 11/08/16 09:50 Dose: 300 mg Insulin Aspart (Novolog Vial Sliding Scale -) 1 vial SQ ACHS [facility] PRN Reason: Protocol Last Admin: 11/08/16 11:52 Dose: 2 units Insulin Detemir (Levemir Vial) 15 units SQ HS [facility] Last Admin: 11/07/16 21:34 Dose: 15 units Isosorbide Mononitrate (Imdur -) 30 mg PO DAILY [facility] Last Admin: 11/08/16 09:48 Dose: 30 mg Levetiracetam (Keppra -) 1,000 mg PO BID [facility] Last Admin: 11/08/16 09:49 Dose: 1,000 mg Lisinopril (Prinivil) 10 mg PO DAILY [facility] Last Admin: 11/08/16 09:48 Dose: 10 mg Methyl Salicylate (Girish-Mai -) 1 applic TP BID [facility] Last Admin: 11/08/16 10:03 Dose: 1 applic Mirtazapine (Remeron -) 15 mg PO HS [facility] Last Admin: 11/07/16 21:35 Dose: 15 mg Nifedipine (Procardia Xl -) 60 mg PO DAILY [facility] Last Admin: 11/08/16 09:47 Dose: 60 mg Ranitidine HCl (Zantac -) 150 mg PO BID [facility] Last Admin: 11/08/16 10:03 Dose: 150 mg Sitagliptin Phosphate (Januvia -) 50 mg PO DAILY@0700 [facility] Last Admin: 11/08/16 06:53 Dose: 50 mg Spironolactone (Aldactone -) 25 mg PO DAILY [facility] Last Admin: 11/08/16 10:03 Dose: 25 mg Tamsulosin HCl (Flomax -) 0.4 mg PO DAILY@0830 [facility] Last Admin: 11/08/16 09:47 Dose: 0.4 mg - Objective Vital Signs: Vital Signs Temperature 97.7 F 11/08/16 14:08 Pulse Rate 61 11/08/16 14:08 Respiratory Rate 20 11/08/16 14:08 Blood Pressure 129/62 11/08/16 14:08 O2 Sat by Pulse Oximetry (%) 100 11/08/16 10:35 Constitutional: Yes: Calm Eyes: Yes: Conjunctiva Clear HENT: Yes: Atraumatic Cardiovascular: Yes: S1, S2 Respiratory: Yes: On Nasal O2 Gastrointestinal: Yes: Soft Genitourinary: Yes: WNL Edema: Yes Edema: LLE: Trace, RLE: Trace Neurological: Yes: Oriented, Pre-Existing Deficit Psychiatric: Yes: Oriented Labs: CBC, BMP 11/08/16 06:10 11/08/16 06:10 INR, PTT INR 1.19 (0.82-1.09) H D 11/01/16 13:09 Problem List - Problems (1) CHF (congestive heart failure) Code(s): I50.9 - HEART FAILURE, UNSPECIFIED Qualifiers: Qualified Code(s): I50.43 - Acute on chronic combined systolic ( congestive) and diastolic (congestive) heart failure (2) Stented coronary artery Code(s): Z95.5 - PRESENCE OF CORONARY ANGIOPLASTY IMPLANT AND GRAFT (3) CKD (chronic kidney disease) Code(s): N18.9 - CHRONIC KIDNEY DISEASE, UNSPECIFIED (4) COPD (chronic obstructive pulmonary disease) Code(s): J44.9 - CHRONIC OBSTRUCTIVE PULMONARY DISEASE, UNSPECIFIED Assessment/Plan Current Medications Generic Name Dose Route Start Last Admin Trade Name Freq PRN Reason Stop Dose Admin Acetaminophen 650 mg 11/01/16 19:45 11/05/16 18:54 Tylenol - PO 650 mg Q6H PRN Administration FEVER OR PAIN Albuterol/Ipratropium 1 amp 11/01/16 19:45 11/04/16 22:30 Duoneb - NEB 1 amp Q6H PRN Administration SHORTNESS OF BREATH Aspirin 81 mg 11/02/16 10:00 11/08/16 09:48 Ecotrin - PO 81 mg DAILY [facility] Administration Atorvastatin Calcium 10 mg 11/01/16 22:00 11/07/16 21:34 Lipitor - PO 10 mg HS [facility] Administration Carvedilol 12.5 mg 11/01/16 22:00 11/08/16 09:49 Coreg - PO 12.5 mg BID [facility] Administration Clopidogrel Bisulfate 75 mg 11/02/16 10:00 11/08/16 09:49 Plavix - PO 75 mg DAILY [facility] Administration Docusate Sodium 100 mg 11/02/16 10:00 11/08/16 09:49 Colace - PO 100 mg DAILY [facility] Administration Donepezil HCl 5 mg 11/02/16 10:00 11/08/16 09:48 Aricept - PO 5 mg DAILY [facility] Administration Ergocalciferol 50,000 unit 11/08/16 10:00 11/08/16 12:35 Drisdol - PO 50,000 unit Q7D@1000 [facility] Administration Ferrous Sulfate 325 mg 11/01/16 22:00 11/08/16 09:49 Feosol - PO 325 mg BID [facility] Administration Finasteride 5 mg 11/02/16 10:00 11/08/16 09:47 Proscar - PO 5 mg DAILY [facility] Administration Furosemide 60 mg 11/05/16 06:00 11/08/16 13:43 Lasix Injection - IVPB 60 mg BID@0600,1400 [facility] Administration Gabapentin 300 mg 11/01/16 22:00 11/08/16 09:50 Neurontin - PO 300 mg BID [facility] Administration Insulin Aspart 1 vial 11/01/16 22:00 11/08/16 11:52 Novolog Vial Sliding Scale - SQ 2 units ACHS [facility] Administration Protocol Insulin Detemir 15 units 11/01/16 22:00 11/07/16 21:34 Levemir Vial SQ 15 units HS [facility] Administration Isosorbide Mononitrate 30 mg 11/02/16 10:00 11/08/16 09:48 Imdur - PO 30 mg DAILY [facility] Administration Levetiracetam 1,000 mg 11/01/16 22:00 11/08/16 09:49 Keppra - PO 1,000 mg BID [facility] Administration Lisinopril 10 mg 11/02/16 10:00 11/08/16 09:48 Prinivil PO 10 mg DAILY [facility] Administration Methyl Salicylate 1 applic 11/02/16 10:00 11/08/16 10:03 Girish-Mai - TP 1 applic BID [facility] Administration Mirtazapine 15 mg 11/01/16 22:00 11/07/16 21:35 Remeron - PO 15 mg HS [facility] Administration Nifedipine 60 mg 11/02/16 10:00 11/08/16 09:47 Procardia Xl - PO 60 mg DAILY [facility] Administration Ranitidine HCl 150 mg 11/06/16 10:00 11/08/16 10:03 Zantac - PO 150 mg BID [facility] Administration Sitagliptin Phosphate 50 mg 11/02/16 07:00 11/08/16 06:53 Januvia - PO 50 mg DAILY@0700 [facility] Administration Spironolactone 25 mg 11/06/16 11:30 11/08/16 10:03 Aldactone - PO 25 mg DAILY [facility] Administration Tamsulosin HCl 0.4 mg 11/02/16 08:30 11/08/16 09:47 Flomax - PO 0.4 mg DAILY@0830 [facility] Administration Impression 1. CKD 2. hypoxia 3. hx CVA 4. DM 5. epilepsy 6. hyperlipidemia 7. hx anemia 8. hx a-fib 9. hypokalemia 10. CAD 11. acute CHF Plan - cont diuretics - repeat labs in am - will need rehab after discharge - will see pt in office after discharge - can keep on michael - case discussed with pt and his family at length - will follow Dr Jc
[2016-11-08] MEDS: MIRTAZAPINE 15 MG TABLET (FP) PO SCH (22:03)
[2016-11-08] MEDS: INSULIN DETEMIR 100 UNITS/ML MDV SQ SCH (22:03)
[2016-11-08] MEDS: ATORVASTATIN CA 10 MG TABLET (FP) PO SCH (22:03)
[2016-11-09] MEDS: INSULIN SLIDING SCALE (NOVOLOG) 1 VIAL SQ SCH ×5 (06:08→22:50)
[2016-11-09] MEDS: FUROSEMIDE 100 MG/10 ML INJECTABLE VIAL IVPB SCH ×2 (06:13→13:49)
[2016-11-09] MEDS: sitaGLIPtin PHOSPHATE 50 MG TABLET PO SCH (06:13)
--- NOTE | 2016-11-09 06:48 | PN ---
Progress Note, Physician Chief Complaint: NO CHANGE - Current Medication List Current Medications: Active Medications Acetaminophen (Tylenol -) 650 mg PO Q6H PRN PRN Reason: FEVER OR PAIN Last Admin: 11/05/16 18:54 Dose: 650 mg Albuterol/Ipratropium (Duoneb -) 1 amp NEB Q6H PRN PRN Reason: SHORTNESS OF BREATH Last Admin: 11/04/16 22:30 Dose: 1 amp Aspirin (Ecotrin -) 81 mg PO DAILY [facility] Last Admin: 11/08/16 09:48 Dose: 81 mg Atorvastatin Calcium (Lipitor -) 10 mg PO HS [facility] Last Admin: 11/08/16 22:03 Dose: 10 mg Carvedilol (Coreg -) 12.5 mg PO BID [facility] Last Admin: 11/08/16 22:03 Dose: 12.5 mg Clopidogrel Bisulfate (Plavix -) 75 mg PO DAILY [facility] Last Admin: 11/08/16 09:49 Dose: 75 mg Docusate Sodium (Colace -) 100 mg PO DAILY [facility] Last Admin: 11/08/16 09:49 Dose: 100 mg Donepezil HCl (Aricept -) 5 mg PO DAILY [facility] Last Admin: 11/08/16 09:48 Dose: 5 mg Ergocalciferol (Drisdol -) 50,000 unit PO Q7D@1000 [facility] Last Admin: 11/08/16 12:35 Dose: 50,000 unit Ferrous Sulfate (Feosol -) 325 mg PO BID [facility] Last Admin: 11/08/16 22:02 Dose: 325 mg Finasteride (Proscar -) 5 mg PO DAILY [facility] Last Admin: 11/08/16 09:47 Dose: 5 mg Furosemide (Lasix Injection -) 60 mg IVPB BID@0600,1400 [facility] Last Admin: 11/09/16 06:13 Dose: 60 mg Gabapentin (Neurontin -) 300 mg PO BID [facility] Last Admin: 11/08/16 22:02 Dose: 300 mg Insulin Aspart (Novolog Vial Sliding Scale -) 1 vial SQ ACHS [facility] PRN Reason: Protocol Last Admin: 11/09/16 06:14 Dose: 6 units Insulin Detemir (Levemir Vial) 15 units SQ HS [facility] Last Admin: 11/08/16 22:03 Dose: 15 units Isosorbide Mononitrate (Imdur -) 30 mg PO DAILY [facility] Last Admin: 11/08/16 09:48 Dose: 30 mg Levetiracetam (Keppra -) 1,000 mg PO BID [facility] Last Admin: 11/08/16 22:03 Dose: 1,000 mg Lisinopril (Prinivil) 10 mg PO DAILY [facility] Last Admin: 11/08/16 09:48 Dose: 10 mg Methyl Salicylate (Girish-Mai -) 1 applic TP BID [facility] Last Admin: 11/08/16 22:08 Dose: 1 applic Mirtazapine (Remeron -) 15 mg PO HS [facility] Last Admin: 11/08/16 22:03 Dose: 15 mg Nifedipine (Procardia Xl -) 60 mg PO DAILY [facility] Last Admin: 11/08/16 09:47 Dose: 60 mg Ranitidine HCl (Zantac -) 150 mg PO BID [facility] Last Admin: 11/08/16 22:02 Dose: 150 mg Sitagliptin Phosphate (Januvia -) 50 mg PO DAILY@0700 [facility] Last Admin: 11/09/16 06:13 Dose: 50 mg Spironolactone (Aldactone -) 25 mg PO DAILY [facility] Last Admin: 11/08/16 10:03 Dose: 25 mg Tamsulosin HCl (Flomax -) 0.4 mg PO DAILY@0830 [facility] Last Admin: 11/08/16 09:47 Dose: 0.4 mg - Objective Vital Signs: Vital Signs Temperature 98.6 F 11/09/16 02:00 Pulse Rate 75 11/09/16 02:00 Respiratory Rate 20 11/09/16 02:00 Blood Pressure 143/70 11/09/16 02:00 O2 Sat by Pulse Oximetry (%) 100 11/08/16 21:00 Neck: Yes: WNL Cardiovascular: Yes: WNL Respiratory: Yes: WNL Gastrointestinal: Yes: WNL Labs: INR, PTT INR 1.19 (0.82-1.09) H D 11/01/16 13:09 Assessment/Plan (1) Acute on chronic respiratory failure with hypoxia and hypercapnia Code(s): J96.21 - ACUTE AND CHRONIC RESPIRATORY FAILURE WITH HYPOXIA J96.22 - ACUTE AND CHRONIC RESPIRATORY FAILURE WITH HYPERCAPNIA (2) Acute on chronic systolic and diastolic heart failure, NYHA class 1 Code(s): I50.43 - ACUTE ON CHRONIC COMBINED SYSTOLIC AND DIASTOLIC HRT FAIL (3) Acute respiratory disease Code(s): J06.9 - ACUTE UPPER RESPIRATORY INFECTION, UNSPECIFIED (4) Atrial flutter Code(s): I48.92 - UNSPECIFIED ATRIAL FLUTTER Qualifiers: Qualified Code(s): I48.92 - Unspecified atrial flutter (5) Atypical chest pain Code(s): R07.89 - OTHER CHEST PAIN (6) Chronic systolic CHF (congestive heart failure) Code(s): I50.22 - CHRONIC SYSTOLIC (CONGESTIVE) HEART FAILURE (7) Pacemaker Code(s): Z95.0 - PRESENCE OF CARDIAC PACEMAKER (8) Acute on chronic renal failure Code(s): N17.9 - ACUTE KIDNEY FAILURE, UNSPECIFIED N18.9 - CHRONIC KIDNEY DISEASE, UNSPECIFIED (9) Acute on chronic systolic (congestive) heart failure Code(s): I50.23 - ACUTE ON CHRONIC SYSTOLIC (CONGESTIVE) HEART FAILURE (10) Acute respiratory failure Code(s): J96.00 - ACUTE RESPIRATORY FAILURE, UNSP W HYPOXIA OR HYPERCAPNIA (11) Diabetes mellitus Code(s): E11.9 - TYPE 2 DIABETES MELLITUS WITHOUT COMPLICATIONS Qualifiers: Qualified Code(s): E10.65 - Type 1 diabetes mellitus with hyperglycemia (12) HTN (hypertension) Code(s): I10 - ESSENTIAL (PRIMARY) HYPERTENSION Qualifiers: Qualified Code(s): I10 - Essential (primary) hypertension Assessment/Plan ACUTE CHF INCREASED DIURETICS IV & PO RENAL AND CARDIOLOGY EVAL APPRECIATED MONITOR LABS MONITOR OUTPUT DAILY WEIGHTS 02 SUPPORT PATIENT IS NOT FOLLOWING A CHF/ADA/RENAL DIET DIETARY EVAL, EATING HOT DOGS BROUGHT FROM HOME BY THE FAMILY -> NUTRITION ON CASE NO PPI. 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
[2016-11-09 07:00] LABS: BASOPHIL 0.3 % (0-2.0); EOSINOPHIL 4.7 % (0-4.5); MCH 24.5 pg (25.7-33.7); MCHC 31.3 g/dl (32.0-35.9); MEAN CELL VOLUME 78.1 fl (80-96); NEUTROPHILS 76.8 % (42.8-82.8); PLATELET COUNT 170 K/MM3 (134-434); RDW 18.1 % (11.9-15.9); WHITE BLOOD COUNT 6.4 K/mm3 (4.0-10.0)
[2016-11-09 07:19] LABS: ALBUMIN 2.3 g/dl (3.4-5.0); CALCIUM 7.8 mg/dL (8.5-10.1)
[2016-11-09 07:24] LABS: BILIRUBIN,TOTAL 0.4 mg/dL (0.2-1.0); COCKROFT - GAULT 42.2; CREATININE 1.9 mg/dL (0.7-1.3); TOT PROT 6.1 g/dl (6.4-8.2)
[2016-11-09] MEDS ORDERED: PT OWN MED DRAWER 7, Y5N ONE (09:49)
[2016-11-09] MEDS: RANITIDINE HCL 150 MG TABLET (FP) PO SCH ×2 (09:50→22:48)
[2016-11-09] MEDS: TAMSULOSIN HCL 0.4 MG CAP.ER.24H (FP) PO SCH (09:50)
[2016-11-09] MEDS: SPIRONOLACTONE 25 MG TABLET (FP) PO SCH (09:50)
[2016-11-09] MEDS: FINASTERIDE 5 MG TABLET (FP) PO SCH (09:50)
[2016-11-09] MEDS: levETIRAcetam 500 MG TABLET (FP) PO SCH ×2 (09:50→22:48)
[2016-11-09] MEDS: LISINOPRIL 10 MG TABLET (FP) PO SCH (09:50)
[2016-11-09] MEDS: NIFEdipine E.R 60 MG TABLET (UD) PO SCH (09:50)
[2016-11-09] MEDS: DONEPEZIL HCL 5 MG TABLET (FP) PO SCH (09:50)
[2016-11-09] MEDS: DOCUSATE SODIUM 100 MG CAPSULE (FP) PO SCH (09:51)
[2016-11-09] MEDS: ASPIRIN COATED 81 MG TABLET.EC PO SCH (09:51)
[2016-11-09] MEDS: ISOSORBIDE MONONITRATE 30 MG TAB.SR.24H (FP) PO SCH (09:51)
[2016-11-09] MEDS: METHYL SALICYLATE/MENTHOL OINT 30 GM TUBE TP SCH ×2 (09:51→22:49)
[2016-11-09] MEDS: FERROUS SO4 325 MG TABLET (FP) PO SCH ×2 (09:51→22:48)
[2016-11-09] MEDS: CARVEDILOL 12.5 MG TABLET (FP) PO SCH ×2 (09:51→22:48)
[2016-11-09] MEDS: GABAPENTIN 300 MG CAPSULE (FP) PO SCH ×2 (09:51→22:48)
[2016-11-09] MEDS: CLOPIDOGREL BISULFATE 75 MG TABLET (FP) PO SCH (09:51)
[2016-11-09] MEDS: ALBUTEROL SO4 2.5/IPRATROPIUM 0.5 INH SOL 3 ML VIAL.NEB. NEB PRN (10:30)
--- NOTE | 2016-11-09 12:21 | PN ---
Progress Note, Physician History of Present Illness: The patient is a 62-year-old man, accompanied by , with a significant past medical history of hypertension, chronic obstructive pulmonary disease ( requiring intubation on 2005) and emphysema who presents to the emergency department via EMS for further evaluation of shortness of breath. HPI limited as patient arrives in severe respiratory distress. As per patient's , his symptoms started approximately 1 month ago with an intermittent productive cough with yellow-green sputum. She states that his symptoms worsened over the the past 3 days, as he became increasingly short of breath. EMS was activated today, and on arrival, the patient was noted to be in the low 90s on a non- rebreather and was found to have diffuse expiratory wheezes in the field, and was in respiratory distress. He was given 10 milligrams of Decadron and received a second Combivent. He was also placed on BiPAP, with noted improvement of his shortness of breath and oxygen saturation of 98%. No fever, chills, sick contacts. History provided by EMS, old records and pts who is with him Daughter and say pt has shown little response over the past 2 hours; prior to that, he was talking. - Current Medication List Current Medications: Active Medications Acetaminophen (Tylenol -) 650 mg PO Q6H PRN PRN Reason: FEVER OR PAIN Last Admin: 11/05/16 18:54 Dose: 650 mg Albuterol/Ipratropium (Duoneb -) 1 amp NEB Q6H PRN PRN Reason: SHORTNESS OF BREATH Last Admin: 11/09/16 10:30 Dose: 1 amp Aspirin (Ecotrin -) 81 mg PO DAILY [facility] Last Admin: 11/09/16 09:51 Dose: 81 mg Atorvastatin Calcium (Lipitor -) 10 mg PO HS [facility] Last Admin: 11/08/16 22:03 Dose: 10 mg Carvedilol (Coreg -) 12.5 mg PO BID [facility] Last Admin: 11/09/16 09:51 Dose: 12.5 mg Clopidogrel Bisulfate (Plavix -) 75 mg PO DAILY [facility] Last Admin: 11/09/16 09:51 Dose: 75 mg Docusate Sodium (Colace -) 100 mg PO DAILY [facility] Last Admin: 11/09/16 09:51 Dose: 100 mg Donepezil HCl (Aricept -) 5 mg PO DAILY [facility] Last Admin: 11/09/16 09:50 Dose: 5 mg Ergocalciferol (Drisdol -) 50,000 unit PO Q7D@1000 [facility] Last Admin: 11/08/16 12:35 Dose: 50,000 unit Ferrous Sulfate (Feosol -) 325 mg PO BID [facility] Last Admin: 11/09/16 09:51 Dose: 325 mg Finasteride (Proscar -) 5 mg PO DAILY [facility] Last Admin: 11/09/16 09:50 Dose: 5 mg Furosemide (Lasix Injection -) 60 mg IVPB BID@0600,1400 [facility] Last Admin: 11/09/16 06:13 Dose: 60 mg Gabapentin (Neurontin -) 300 mg PO BID [facility] Last Admin: 11/09/16 09:51 Dose: 300 mg Insulin Aspart (Novolog Vial Sliding Scale -) 1 vial SQ [facility] PRN Reason: Protocol Last Admin: 11/09/16 12:00 Dose: 4 units Insulin Detemir (Levemir Vial) 15 units SQ [facility] Last Admin: 11/08/16 22:03 Dose: 15 units Isosorbide Mononitrate (Imdur -) 30 mg PO DAILY [facility] Last Admin: 11/09/16 09:51 Dose: 30 mg Levetiracetam (Keppra -) 1,000 mg PO BID [facility] Last Admin: 11/09/16 09:50 Dose: 1,000 mg Lisinopril (Prinivil) 10 mg PO DAILY [facility] Last Admin: 11/09/16 09:50 Dose: 10 mg Methyl Salicylate (Girish-Mai -) 1 applic TP BID [facility] Last Admin: 11/09/16 09:51 Dose: 1 applic Mirtazapine (Remeron -) 15 mg PO HS [facility] Last Admin: 11/08/16 22:03 Dose: 15 mg Nifedipine (Procardia Xl -) 60 mg PO DAILY [facility] Last Admin: 11/09/16 09:50 Dose: 60 mg Ranitidine HCl (Zantac -) 150 mg PO BID [facility] Last Admin: 11/09/16 09:50 Dose: 150 mg Sitagliptin Phosphate (Januvia -) 50 mg PO DAILY@0700 [facility] Last Admin: 11/09/16 06:13 Dose: 50 mg Spironolactone (Aldactone -) 25 mg PO DAILY [facility] Last Admin: 11/09/16 09:50 Dose: 25 mg Tamsulosin HCl (Flomax -) 0.4 mg PO DAILY@0830 [facility] Last Admin: 11/09/16 09:50 Dose: 0.4 mg - Objective Vital Signs: Vital Signs Temperature 98.4 F 11/09/16 10:00 Pulse Rate 72 11/09/16 10:00 Respiratory Rate 20 11/09/16 10:00 Blood Pressure 147/77 11/09/16 10:00 O2 Sat by Pulse Oximetry (%) 96 11/09/16 09:53 Eyes: Yes: WNL, Conjunctiva Clear, EOM Intact HENT: Yes: WNL, Atraumatic, Normocephalic Neck: Yes: WNL, Supple, Trachea Midline Cardiovascular: Yes: WNL, Regular Rate and Rhythm Respiratory: Yes: WNL, Regular, CTA Bilaterally Gastrointestinal: Yes: WNL, Normal Bowel Sounds Genitourinary: Yes: WNL Musculoskeletal: Yes: WNL Extremities: Yes: WNL Edema: No Integumentary: Yes: WNL Neurological: Yes: WNL, Alert, Oriented ...Motor Strength: WNL Psychiatric: Yes: WNL Labs: CBC, BMP 11/09/16 05:35 11/09/16 05:35 INR, PTT INR 1.19 (0.82-1.09) H D 11/01/16 13:09 Assessment/Plan - Problems (1) Acute respiratory disease Assessment/Plan: Bipap, bronchodilators, steroids, antibiotics per pulmonary and ID. Code(s): J06.9 - ACUTE UPPER RESPIRATORY INFECTION, UNSPECIFIED (2) Atrial flutter Assessment/Plan: on carvedilol for HR control (and systolic CHF). On ASA and clopidogrel (CAD; ?hx GI bleed precludes addtion of anticoagulant). Code(s): I48.92 - UNSPECIFIED ATRIAL FLUTTER Qualifiers: Qualified Code(s): I48.92 - Unspecified atrial flutter (3) Stented coronary artery Code(s): Z95.5 - PRESENCE OF CORONARY ANGIOPLASTY IMPLANT AND GRAFT (4) CVA (cerebral infarction) Code(s): I63.9 - CEREBRAL INFARCTION, UNSPECIFIED Qualifiers: Qualified Code(s): I63.9 - Cerebral infarction, unspecified (5) GERD (gastroesophageal reflux disease) Code(s): K21.9 - GASTRO-ESOPHAGEAL REFLUX DISEASE WITHOUT ESOPHAGITIS (6) HLD (hyperlipidemia) Code(s): E78.5 - HYPERLIPIDEMIA, UNSPECIFIED (7) HTN (hypertension) Code(s): I10 - ESSENTIAL (PRIMARY) HYPERTENSION Qualifiers: Qualified Code(s): I10 - Essential (primary) hypertension (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 Code(s): E11.610 - TYPE 2 DIABETES MELLITUS W DIABETIC NEUROPATHIC ARTHROPATHY Qualifiers: Qualified Code(s): E11.618 - Type 2 diabetes mellitus with other diabetic arthropathy; Z79.4 - half-way (current) use of insulin (9) Acute on chronic systolic and diastolic heart failure, NYHA class 1 Assessment/Plan: On IV furosemide. Plan: Continue carvedillol, lisinopril.
--- NOTE | 2016-11-09 13:38 | PN ---
Progress Note, Physician History of Present Illness: pulmonary alert,dyspnea improving,-cp,cough - Current Medication List Current Medications: Active Medications Acetaminophen (Tylenol -) 650 mg PO Q6H PRN PRN Reason: FEVER OR PAIN Last Admin: 11/05/16 18:54 Dose: 650 mg Albuterol/Ipratropium (Duoneb -) 1 amp NEB Q6H PRN PRN Reason: SHORTNESS OF BREATH Last Admin: 11/09/16 10:30 Dose: 1 amp Aspirin (Ecotrin -) 81 mg PO DAILY [facility] Last Admin: 11/09/16 09:51 Dose: 81 mg Atorvastatin Calcium (Lipitor -) 10 mg PO HS [facility] Last Admin: 11/08/16 22:03 Dose: 10 mg Carvedilol (Coreg -) 12.5 mg PO BID [facility] Last Admin: 11/09/16 09:51 Dose: 12.5 mg Clopidogrel Bisulfate (Plavix -) 75 mg PO DAILY [facility] Last Admin: 11/09/16 09:51 Dose: 75 mg Docusate Sodium (Colace -) 100 mg PO DAILY [facility] Last Admin: 11/09/16 09:51 Dose: 100 mg Donepezil HCl (Aricept -) 5 mg PO DAILY [facility] Last Admin: 11/09/16 09:50 Dose: 5 mg Ergocalciferol (Drisdol -) 50,000 unit PO Q7D@1000 [facility] Last Admin: 11/08/16 12:35 Dose: 50,000 unit Ferrous Sulfate (Feosol -) 325 mg PO BID [facility] Last Admin: 11/09/16 09:51 Dose: 325 mg Finasteride (Proscar -) 5 mg PO DAILY [facility] Last Admin: 11/09/16 09:50 Dose: 5 mg Furosemide (Lasix Injection -) 60 mg IVPB BID@0600,1400 [facility] Last Admin: 11/09/16 06:13 Dose: 60 mg Gabapentin (Neurontin -) 300 mg PO BID [facility] Last Admin: 11/09/16 09:51 Dose: 300 mg Insulin Aspart (Novolog Vial Sliding Scale -) 1 vial SQ [facility] PRN Reason: Protocol Last Admin: 11/09/16 12:00 Dose: 4 units Insulin Detemir (Levemir Vial) 15 units SQ HS [facility] Last Admin: 11/08/16 22:03 Dose: 15 units Isosorbide Mononitrate (Imdur -) 30 mg PO DAILY [facility] Last Admin: 11/09/16 09:51 Dose: 30 mg Levetiracetam (Keppra -) 1,000 mg PO BID [facility] Last Admin: 11/09/16 09:50 Dose: 1,000 mg Lisinopril (Prinivil) 10 mg PO DAILY [facility] Last Admin: 11/09/16 09:50 Dose: 10 mg Methyl Salicylate (Girish-Mai -) 1 applic TP BID [facility] Last Admin: 11/09/16 09:51 Dose: 1 applic Mirtazapine (Remeron -) 15 mg PO HS [facility] Last Admin: 11/08/16 22:03 Dose: 15 mg Nifedipine (Procardia Xl -) 60 mg PO DAILY [facility] Last Admin: 11/09/16 09:50 Dose: 60 mg Ranitidine HCl (Zantac -) 150 mg PO BID [facility] Last Admin: 11/09/16 09:50 Dose: 150 mg Sitagliptin Phosphate (Januvia -) 50 mg PO DAILY@0700 [facility] Last Admin: 11/09/16 06:13 Dose: 50 mg Spironolactone (Aldactone -) 25 mg PO DAILY [facility] Last Admin: 11/09/16 09:50 Dose: 25 mg Tamsulosin HCl (Flomax -) 0.4 mg PO DAILY@0830 [facility] Last Admin: 11/09/16 09:50 Dose: 0.4 mg - Objective Vital Signs: Vital Signs Temperature 98.4 F 11/09/16 10:00 Pulse Rate 72 11/09/16 10:00 Respiratory Rate 20 11/09/16 10:00 Blood Pressure 147/77 11/09/16 10:00 O2 Sat by Pulse Oximetry (%) 96 11/09/16 09:53 Constitutional: Yes: Well Nourished, Calm Eyes: Yes: WNL HENT: Yes: WNL Neck: Yes: WNL Cardiovascular: Yes: Pulse Irregular, S1, S2 Respiratory: Yes: Diminished Gastrointestinal: Yes: Normal Bowel Sounds, Soft Extremities: Yes: WNL Edema: Yes Edema: LLE: Trace, RLE: Trace Labs: CBC, BMP 11/09/16 05:35 11/09/16 05:35 INR, PTT INR 1.19 (0.82-1.09) H D 11/01/16 13:09 Problem List - Problems (1) Acute on chronic systolic and diastolic heart failure, NYHA class 1 Code(s): I50.43 - ACUTE ON CHRONIC COMBINED SYSTOLIC AND DIASTOLIC HRT FAIL (2) Acute respiratory disease Code(s): J06.9 - ACUTE UPPER RESPIRATORY INFECTION, UNSPECIFIED (3) Altered mental status Code(s): R41.82 - ALTERED MENTAL STATUS, UNSPECIFIED Qualifiers: Qualified Code(s): R41.0 - Disorientation, unspecified (4) Atypical chest pain Code(s): R07.89 - OTHER CHEST PAIN (5) CHF (congestive heart failure) Code(s): I50.9 - HEART FAILURE, UNSPECIFIED Qualifiers: Qualified Code(s): I50.43 - Acute on chronic combined systolic ( congestive) and diastolic (congestive) heart failure (6) Dementia Code(s): F03.90 - UNSPECIFIED DEMENTIA WITHOUT BEHAVIORAL DISTURBANCE (7) Epilepsy Code(s): G40.909 - EPILEPSY, UNSP, NOT INTRACTABLE, WITHOUT STATUS EPILEPTICUS (8) Stented coronary artery Code(s): Z95.5 - PRESENCE OF CORONARY ANGIOPLASTY IMPLANT AND GRAFT (9) ASHD (arteriosclerotic heart disease) Code(s): I25.10 - ATHSCL HEART DISEASE OF [place] CORONARY ARTERY W/O ANG PCTRS (10) Acute respiratory failure Code(s): J96.00 - ACUTE RESPIRATORY FAILURE, UNSP W HYPOXIA OR HYPERCAPNIA (11) CKD (chronic kidney disease) Code(s): N18.9 - CHRONIC KIDNEY DISEASE, UNSPECIFIED (12) CVA (cerebral vascular accident) Code(s): I63.9 - CEREBRAL INFARCTION, UNSPECIFIED (13) Chest pain Code(s): R07.9 - CHEST PAIN, UNSPECIFIED (14) Diabetes mellitus Code(s): E11.9 - TYPE 2 DIABETES MELLITUS WITHOUT COMPLICATIONS Qualifiers: Qualified Code(s): E10.65 - Type 1 diabetes mellitus with hyperglycemia (15) Difficulty breathing Code(s): R06.89 - OTHER ABNORMALITIES OF BREATHING (16) GERD (gastroesophageal reflux disease) Code(s): K21.9 - GASTRO-ESOPHAGEAL REFLUX DISEASE WITHOUT ESOPHAGITIS (17) HLD (hyperlipidemia) Code(s): E78.5 - HYPERLIPIDEMIA, UNSPECIFIED (18) HTN (hypertension) Code(s): I10 - ESSENTIAL (PRIMARY) HYPERTENSION Qualifiers: Qualified Code(s): I10 - Essential (primary) hypertension (19) Hypoxia Code(s): R09.02 - HYPOXEMIA (20) Seizure disorder Code(s): G40.909 - EPILEPSY, UNSP, NOT INTRACTABLE, WITHOUT STATUS EPILEPTICUS (21) Acute on chronic respiratory failure with hypoxia and hypercapnia Code(s): J96.21 - ACUTE AND CHRONIC RESPIRATORY FAILURE WITH HYPOXIA J96.22 - ACUTE AND CHRONIC RESPIRATORY FAILURE WITH HYPERCAPNIA Assessment/Plan IMP ACUTE ON CHRONIC HYPOXEMIC/HYPERCAPNEIC RESPIRATORY FAILURE improving DECOMPENSATED CHF improving ASHD S/P RI,S/P STENTS AFIB HTN S/P CVA WITH R HEMIPARESIS SEIZURE DISORDER DM CKD PLAN CONT IV LASIX,ALDACTONE O2 TO MAINTAIN O2 SAT 90% OR GREATER INHALED BRONCHODILATORS MONITOR LYTES,RENAL DAILY WTS DR TORRES Problem List - Problems (1) Acute on chronic systolic and diastolic heart failure, NYHA class 1 Code(s): I50.43 - ACUTE ON CHRONIC COMBINED SYSTOLIC AND DIASTOLIC HRT FAIL (2) Acute respiratory disease Code(s): J06.9 - ACUTE UPPER RESPIRATORY INFECTION, UNSPECIFIED (3) Altered mental status Code(s): R41.82 - ALTERED MENTAL STATUS, UNSPECIFIED Qualifiers: Altered mental status type: disorientation Qualified Code(s): R41.0 - Disorientation, unspecified (4) Atypical chest pain Code(s): R07.89 - OTHER CHEST PAIN (5) CHF (congestive heart failure) Code(s): I50.9 - HEART FAILURE, UNSPECIFIED Qualifiers: Congestive heart failure type: combined Congestive heart failure chronicity: acute on chronic Qualified Code(s): I50.43 - Acute on chronic combined systolic (congestive) and diastolic (congestive) heart failure (6) Dementia Code(s): F03.90 - UNSPECIFIED DEMENTIA WITHOUT BEHAVIORAL DISTURBANCE Qualifiers: Dementia behavioral disturbance: without behavioral disturbance (7) Epilepsy Code(s): G40.909 - EPILEPSY, UNSP, NOT INTRACTABLE, WITHOUT STATUS EPILEPTICUS (8) Stented coronary artery Code(s): Z95.5 - PRESENCE OF CORONARY ANGIOPLASTY IMPLANT AND GRAFT (9) ASHD (arteriosclerotic heart disease) Code(s): I25.10 - ATHSCL HEART DISEASE OF [place] CORONARY ARTERY W/O ANG PCTRS (10) Acute respiratory failure Code(s): J96.00 - ACUTE RESPIRATORY FAILURE, UNSP W HYPOXIA OR HYPERCAPNIA (11) CKD (chronic kidney disease) Code(s): N18.9 - CHRONIC KIDNEY DISEASE, UNSPECIFIED (12) CVA (cerebral vascular accident) Code(s): I63.9 - CEREBRAL INFARCTION, UNSPECIFIED Qualifiers: Precerebral and cerebral artery: unspecified precerebral artery (13) Chest pain Code(s): R07.9 - CHEST PAIN, UNSPECIFIED Qualifiers: Chest pain type: precordial chest pain (14) Diabetes mellitus Code(s): E11.9 - TYPE 2 DIABETES MELLITUS WITHOUT COMPLICATIONS Qualifiers: Diabetes mellitus type: type 1 Diabetes mellitus complication status: with hyperglycemia Qualified Code(s): E10.65 - Type 1 diabetes mellitus with hyperglycemia (15) Difficulty breathing Code(s): R06.89 - OTHER ABNORMALITIES OF BREATHING (16) GERD (gastroesophageal reflux disease) Code(s): K21.9 - GASTRO-ESOPHAGEAL REFLUX DISEASE WITHOUT ESOPHAGITIS (17) HLD (hyperlipidemia) Code(s): E78.5 - HYPERLIPIDEMIA, UNSPECIFIED (18) HTN (hypertension) Code(s): I10 - ESSENTIAL (PRIMARY) HYPERTENSION Qualifiers: Hypertension type: essential hypertension Qualified Code(s): I10 - Essential (primary) hypertension (19) Hypoxia Code(s): R09.02 - HYPOXEMIA (20) Seizure disorder Code(s): G40.909 - EPILEPSY, UNSP, NOT INTRACTABLE, WITHOUT STATUS EPILEPTICUS (21) Acute on chronic respiratory failure with hypoxia and hypercapnia Code(s): J96.21 - ACUTE AND CHRONIC RESPIRATORY FAILURE WITH HYPOXIA J96.22 - ACUTE AND CHRONIC RESPIRATORY FAILURE WITH HYPERCAPNIA
--- NOTE | 2016-11-09 16:32 | PN ---
Progress Note, Physician History of Present Illness: Pt seen and examined at bedside. He has no complaints today. - Current Medication List Current Medications: Active Medications Acetaminophen (Tylenol -) 650 mg PO Q6H PRN PRN Reason: FEVER OR PAIN Last Admin: 11/05/16 18:54 Dose: 650 mg Albuterol/Ipratropium (Duoneb -) 1 amp NEB Q6H PRN PRN Reason: SHORTNESS OF BREATH Last Admin: 11/09/16 10:30 Dose: 1 amp Aspirin (Ecotrin -) 81 mg PO DAILY [facility] Last Admin: 11/09/16 09:51 Dose: 81 mg Atorvastatin Calcium (Lipitor -) 10 mg PO HS [facility] Last Admin: 11/08/16 22:03 Dose: 10 mg Carvedilol (Coreg -) 12.5 mg PO BID [facility] Last Admin: 11/09/16 09:51 Dose: 12.5 mg Clopidogrel Bisulfate (Plavix -) 75 mg PO DAILY [facility] Last Admin: 11/09/16 09:51 Dose: 75 mg Docusate Sodium (Colace -) 100 mg PO DAILY [facility] Last Admin: 11/09/16 09:51 Dose: 100 mg Donepezil HCl (Aricept -) 5 mg PO DAILY [facility] Last Admin: 11/09/16 09:50 Dose: 5 mg Ergocalciferol (Drisdol -) 50,000 unit PO Q7D@1000 [facility] Last Admin: 11/08/16 12:35 Dose: 50,000 unit Ferrous Sulfate (Feosol -) 325 mg PO BID [facility] Last Admin: 11/09/16 09:51 Dose: 325 mg Finasteride (Proscar -) 5 mg PO DAILY [facility] Last Admin: 11/09/16 09:50 Dose: 5 mg Furosemide (Lasix Injection -) 60 mg IVPB BID@0600,1400 [facility] Last Admin: 11/09/16 13:49 Dose: 60 mg Gabapentin (Neurontin -) 300 mg PO BID [facility] Last Admin: 11/09/16 09:51 Dose: 300 mg Insulin Aspart (Novolog Vial Sliding Scale -) 1 vial SQ [facility] PRN Reason: Protocol Last Admin: 11/09/16 12:00 Dose: 4 units Insulin Detemir (Levemir Vial) [address] [facility] Last Admin: 11/08/16 22:03 Dose: 15 units Isosorbide Mononitrate (Imdur -) 30 mg PO DAILY [facility] Last Admin: 11/09/16 09:51 Dose: 30 mg Levetiracetam (Keppra -) 1,000 mg PO BID [facility] Last Admin: 11/09/16 09:50 Dose: 1,000 mg Lisinopril (Prinivil) 10 mg PO DAILY [facility] Last Admin: 11/09/16 09:50 Dose: 10 mg Methyl Salicylate (Girish-Mai -) 1 applic TP BID [facility] Last Admin: 11/09/16 09:51 Dose: 1 applic Mirtazapine (Remeron -) 15 mg PO HS [facility] Last Admin: 11/08/16 22:03 Dose: 15 mg Nifedipine (Procardia Xl -) 60 mg PO DAILY [facility] Last Admin: 11/09/16 09:50 Dose: 60 mg Ranitidine HCl (Zantac -) 150 mg PO BID [facility] Last Admin: 11/09/16 09:50 Dose: 150 mg Sitagliptin Phosphate (Januvia -) 50 mg PO DAILY@0700 [facility] Last Admin: 11/09/16 06:13 Dose: 50 mg Spironolactone (Aldactone -) 25 mg PO DAILY [facility] Last Admin: 11/09/16 09:50 Dose: 25 mg Tamsulosin HCl (Flomax -) 0.4 mg PO DAILY@0830 [facility] Last Admin: 11/09/16 09:50 Dose: 0.4 mg - Objective Vital Signs: Vital Signs Temperature 98.6 F 11/09/16 14:42 Pulse Rate 62 11/09/16 14:42 Respiratory Rate 18 11/09/16 14:42 Blood Pressure 109/55 11/09/16 14:42 O2 Sat by Pulse Oximetry (%) 96 11/09/16 09:53 Constitutional: Yes: Calm HENT: Yes: Atraumatic Cardiovascular: Yes: S1, S2 Respiratory: Yes: On Nasal O2 Gastrointestinal: Yes: Normal Bowel Sounds, Soft Musculoskeletal: Yes: Muscle Weakness Edema: Yes Edema: LLE: Trace, RLE: Trace Neurological: Yes: Oriented, Pre-Existing Deficit Psychiatric: Yes: Oriented Labs: CBC, BMP 11/09/16 05:35 11/09/16 05:35 INR, PTT INR 1.19 (0.82-1.09) H D 11/01/16 13:09 Problem List - Problems (1) CHF (congestive heart failure) Code(s): I50.9 - HEART FAILURE, UNSPECIFIED Qualifiers: Qualified Code(s): I50.43 - Acute on chronic combined systolic ( congestive) and diastolic (congestive) heart failure (2) Stented coronary artery Code(s): Z95.5 - PRESENCE OF CORONARY ANGIOPLASTY IMPLANT AND GRAFT (3) CKD (chronic kidney disease) Code(s): N18.9 - CHRONIC KIDNEY DISEASE, UNSPECIFIED (4) COPD (chronic obstructive pulmonary disease) Code(s): J44.9 - CHRONIC OBSTRUCTIVE PULMONARY DISEASE, UNSPECIFIED Assessment/Plan Current Medications Generic Name Dose Route Start Last Admin Trade Name Freq PRN Reason Stop Dose Admin Acetaminophen 650 mg 11/01/16 19:45 11/05/16 18:54 Tylenol - PO 650 mg Q6H PRN Administration FEVER OR PAIN Albuterol/Ipratropium 1 amp 11/01/16 19:45 11/09/16 10:30 Duoneb - NEB 1 amp Q6H PRN Administration SHORTNESS OF BREATH Aspirin 81 mg 11/02/16 10:00 11/09/16 09:51 Ecotrin - PO 81 mg DAILY [facility] Administration Atorvastatin Calcium 10 mg 11/01/16 22:00 11/08/16 22:03 Lipitor - PO 10 mg HS [facility] Administration Carvedilol 12.5 mg 11/01/16 22:00 11/09/16 09:51 Coreg - PO 12.5 mg BID [facility] Administration Clopidogrel Bisulfate 75 mg 11/02/16 10:00 11/09/16 09:51 Plavix - PO 75 mg DAILY [facility] Administration Docusate Sodium 100 mg 11/02/16 10:00 11/09/16 09:51 Colace - PO 100 mg DAILY [facility] Administration Donepezil HCl 5 mg 11/02/16 10:00 11/09/16 09:50 Aricept - PO 5 mg DAILY [facility] Administration Ergocalciferol 50,000 unit 11/08/16 10:00 11/08/16 12:35 Drisdol - PO 50,000 unit Q7D@1000 [facility] Administration Ferrous Sulfate 325 mg 11/01/16 22:00 11/09/16 09:51 Feosol - PO 325 mg BID [facility] Administration Finasteride 5 mg 11/02/16 10:00 11/09/16 09:50 Proscar - PO 5 mg DAILY [facility] Administration Furosemide 60 mg 11/05/16 06:00 11/09/16 13:49 Lasix Injection - IVPB 60 mg BID@0600,1400 [facility] Administration Gabapentin 300 mg 11/01/16 22:00 11/09/16 09:51 Neurontin - PO 300 mg BID [facility] Administration Insulin Aspart 1 vial 11/01/16 22:00 11/09/16 12:00 Novolog Vial Sliding Scale - SQ 4 units ACHS [facility] Administration Protocol Insulin Detemir 15 units 11/01/16 22:00 11/08/16 22:03 Levemir Vial SQ 15 units HS [facility] Administration Isosorbide Mononitrate 30 mg 11/02/16 10:00 11/09/16 09:51 Imdur - PO 30 mg DAILY [facility] Administration Levetiracetam 1,000 mg 11/01/16 22:00 11/09/16 09:50 Keppra - PO 1,000 mg BID [facility] Administration Lisinopril 10 mg 11/02/16 10:00 11/09/16 09:50 Prinivil PO 10 mg DAILY [facility] Administration Methyl Salicylate 1 applic 11/02/16 10:00 11/09/16 09:51 Girish-Mai - TP 1 applic BID [facility] Administration Mirtazapine 15 mg 11/01/16 22:00 11/08/16 22:03 Remeron - PO 15 mg HS [facility] Administration Nifedipine 60 mg 11/02/16 10:00 11/09/16 09:50 Procardia Xl - PO 60 mg DAILY [facility] Administration Ranitidine HCl 150 mg 11/06/16 10:00 11/09/16 09:50 Zantac - PO 150 mg BID [facility] Administration Sitagliptin Phosphate 50 mg 11/02/16 07:00 11/09/16 06:13 Januvia - PO 50 mg DAILY@0700 [facility] Administration Spironolactone 25 mg 11/06/16 11:30 11/09/16 09:50 Aldactone - PO 25 mg DAILY [facility] Administration Tamsulosin HCl 0.4 mg 11/02/16 08:30 11/09/16 09:50 Flomax - PO 0.4 mg DAILY@0830 [facility] Administration Impression 1. CKD 2. hypoxia 3. hx CVA 4. DM 5. epilepsy 6. hyperlipidemia 7. hx anemia 8. hx a-fib 9. hypokalemia 10. CAD 11. acute CHF Plan - will keep on lasix and spironolactone - will repeat labs in am - will likely switch lasix to PO tomorrow - will follow renal function closely - will see pt in office after discharge - can keep on michael - will follow Dr Jc
[2016-11-09] MEDS: ATORVASTATIN CA 10 MG TABLET (FP) PO SCH (22:48)
[2016-11-09] MEDS: MIRTAZAPINE 15 MG TABLET (FP) PO SCH (22:48)
[2016-11-09] MEDS: INSULIN DETEMIR 100 UNITS/ML MDV SQ SCH (22:49)
[2016-11-10] MEDS: INSULIN SLIDING SCALE (NOVOLOG) 1 VIAL SQ SCH ×4 (06:09→22:00)
[2016-11-10] MEDS: FUROSEMIDE 100 MG/10 ML INJECTABLE VIAL IVPB SCH ×2 (06:14→14:09)
[2016-11-10] MEDS: sitaGLIPtin PHOSPHATE 50 MG TABLET PO SCH (06:15)
--- NOTE | 2016-11-10 06:31 | PN ---
Progress Note, Physician - Current Medication List Current Medications: Active Medications Acetaminophen (Tylenol -) 650 mg PO Q6H PRN PRN Reason: FEVER OR PAIN Last Admin: 11/05/16 18:54 Dose: 650 mg Albuterol/Ipratropium (Duoneb -) 1 amp NEB Q6H PRN PRN Reason: SHORTNESS OF BREATH Last Admin: 11/09/16 10:30 Dose: 1 amp Aspirin (Ecotrin -) 81 mg PO DAILY [facility] Last Admin: 11/09/16 09:51 Dose: 81 mg Atorvastatin Calcium (Lipitor -) 10 mg PO HS [facility] Last Admin: 11/09/16 22:48 Dose: 10 mg Carvedilol (Coreg -) 12.5 mg PO BID [facility] Last Admin: 11/09/16 22:48 Dose: 12.5 mg Clopidogrel Bisulfate (Plavix -) 75 mg PO DAILY [facility] Last Admin: 11/09/16 09:51 Dose: 75 mg Docusate Sodium (Colace -) 100 mg PO DAILY [facility] Last Admin: 11/09/16 09:51 Dose: 100 mg Donepezil HCl (Aricept -) 5 mg PO DAILY [facility] Last Admin: 11/09/16 09:50 Dose: 5 mg Ergocalciferol (Drisdol -) 50,000 unit PO Q7D@1000 [facility] Last Admin: 11/08/16 12:35 Dose: 50,000 unit Ferrous Sulfate (Feosol -) 325 mg PO BID [facility] Last Admin: 11/09/16 22:48 Dose: 325 mg Finasteride (Proscar -) 5 mg PO DAILY [facility] Last Admin: 11/09/16 09:50 Dose: 5 mg Furosemide (Lasix Injection -) 60 mg IVPB BID@0600,1400 [facility] Last Admin: 11/10/16 06:14 Dose: 60 mg Gabapentin (Neurontin -) 300 mg PO BID [facility] Last Admin: 11/09/16 22:48 Dose: 300 mg Insulin Aspart (Novolog Vial Sliding Scale -) 1 vial SQ [facility] PRN Reason: Protocol Last Admin: 11/10/16 06:09 Dose: Not Given Insulin Detemir (Levemir Vial) 15 units SQ HS [facility] Last Admin: 11/09/16 22:49 Dose: 15 units Isosorbide Mononitrate (Imdur -) 30 mg PO DAILY [facility] Last Admin: 11/09/16 09:51 Dose: 30 mg Levetiracetam (Keppra -) 1,000 mg PO BID [facility] Last Admin: 11/09/16 22:48 Dose: 1,000 mg Lisinopril (Prinivil) 10 mg PO DAILY [facility] Last Admin: 11/09/16 09:50 Dose: 10 mg Methyl Salicylate (Girish-Mai -) 1 applic TP BID [facility] Last Admin: 11/09/16 22:49 Dose: 1 applic Mirtazapine (Remeron -) 15 mg PO HS [facility] Last Admin: 11/09/16 22:48 Dose: 15 mg Nifedipine (Procardia Xl -) 60 mg PO DAILY [facility] Last Admin: 11/09/16 09:50 Dose: 60 mg Ranitidine HCl (Zantac -) 150 mg PO BID [facility] Last Admin: 11/09/16 22:48 Dose: 150 mg Sitagliptin Phosphate (Januvia -) 50 mg PO DAILY@0700 [facility] Last Admin: 11/10/16 06:15 Dose: 50 mg Spironolactone (Aldactone -) 25 mg PO DAILY [facility] Last Admin: 11/09/16 09:50 Dose: 25 mg Tamsulosin HCl (Flomax -) 0.4 mg PO DAILY@0830 [facility] Last Admin: 11/09/16 09:50 Dose: 0.4 mg - Objective Vital Signs: Vital Signs Temperature 97.8 F 11/10/16 05:12 Pulse Rate 64 11/10/16 05:12 Respiratory Rate 20 11/10/16 05:12 Blood Pressure 137/98 11/10/16 05:12 O2 Sat by Pulse Oximetry (%) 95 11/09/16 20:48 HENT: Yes: WNL Neck: Yes: WNL Cardiovascular: Yes: WNL Respiratory: Yes: Rhonchi Gastrointestinal: Yes: WNL Labs: CBC, BMP 11/09/16 05:35 11/09/16 05:35 INR, PTT INR 1.19 (0.82-1.09) H D 11/01/16 13:09 Assessment/Plan (1) Acute on chronic respiratory failure with hypoxia and hypercapnia Code(s): J96.21 - ACUTE AND CHRONIC RESPIRATORY FAILURE WITH HYPOXIA J96.22 - ACUTE AND CHRONIC RESPIRATORY FAILURE WITH HYPERCAPNIA (2) Acute on chronic systolic and diastolic heart failure, NYHA class 1 Code(s): I50.43 - ACUTE ON CHRONIC COMBINED SYSTOLIC AND DIASTOLIC HRT FAIL (3) Acute respiratory disease Code(s): J06.9 - ACUTE UPPER RESPIRATORY INFECTION, UNSPECIFIED (4) Atrial flutter Code(s): I48.92 - UNSPECIFIED ATRIAL FLUTTER Qualifiers: Qualified Code(s): I48.92 - Unspecified atrial flutter (5) Atypical chest pain Code(s): R07.89 - OTHER CHEST PAIN (6) Chronic systolic CHF (congestive heart failure) Code(s): I50.22 - CHRONIC SYSTOLIC (CONGESTIVE) HEART FAILURE (7) Pacemaker Code(s): Z95.0 - PRESENCE OF CARDIAC PACEMAKER (8) Acute on chronic renal failure Code(s): N17.9 - ACUTE KIDNEY FAILURE, UNSPECIFIED N18.9 - CHRONIC KIDNEY DISEASE, UNSPECIFIED (9) Acute on chronic systolic (congestive) heart failure Code(s): I50.23 - ACUTE ON CHRONIC SYSTOLIC (CONGESTIVE) HEART FAILURE (10) Acute respiratory failure Code(s): J96.00 - ACUTE RESPIRATORY FAILURE, UNSP W HYPOXIA OR HYPERCAPNIA (11) Diabetes mellitus Code(s): E11.9 - TYPE 2 DIABETES MELLITUS WITHOUT COMPLICATIONS Qualifiers: Qualified Code(s): E10.65 - Type 1 diabetes mellitus with hyperglycemia (12) HTN (hypertension) Code(s): I10 - ESSENTIAL (PRIMARY) HYPERTENSION Qualifiers: Qualified Code(s): I10 - Essential (primary) hypertension Assessment/Plan ACUTE CHF INCREASED DIURETICS IV & PO -> WILL BE ALL PO 11/11 RENAL AND CARDIOLOGY EVAL APPRECIATED ENDO CONSULTED FOR [facility] DM2 & FOR Rx RECOMMENDATIONS MONITOR LABS MONITOR OUTPUT DAILY WEIGHTS 02 SUPPORT PATIENT IS NOT FOLLOWING A CHF/ADA/RENAL DIET DIETARY EVAL, EATING HOT DOGS BROUGHT FROM HOME BY THE FAMILY -> NUTRITION ON CASE NO PPI. 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
[2016-11-10 07:59] LABS: BASOPHIL 0.6 % (0-2.0); EOSINOPHIL 4.9 % (0-4.5); MCH 24.4 pg (25.7-33.7); MCHC 31.5 g/dl (32.0-35.9); MEAN CELL VOLUME 77.6 fl (80-96); MEAN PLT VOLUME 8.8 fl (7.5-11.1); NEUTROPHILS 75.4 % (42.8-82.8); PLATELET COUNT 173 K/MM3 (134-434); RDW 17.5 % (11.9-15.9); WHITE BLOOD COUNT 7.3 K/mm3 (4.0-10.0)
[2016-11-10 08:32] LABS: ALBUMIN 2.4 g/dl (3.4-5.0); CALCIUM 7.5 mg/dL (8.5-10.1)
[2016-11-10 08:35] LABS: BILIRUBIN,TOTAL 0.3 mg/dL (0.2-1.0); COCKROFT - GAULT 41.4; CREATININE 1.9 mg/dL (0.7-1.3); TOT PROT 6.2 g/dl (6.4-8.2)
[2016-11-10] MEDS: TAMSULOSIN HCL 0.4 MG CAP.ER.24H (FP) PO SCH (08:40)
--- NOTE | 2016-11-10 09:20 | PN ---
Progress Note, Physician Chief Complaint: Pt Alert; has no complaints. History of Present Illness: The patient is a 62-year-old man (b. [place]), accompanied by and daughter, with a significant past medical history severe systolic heart failure- ->ICD, CAD-->PCI, hypertension, chronic obstructive pulmonary disease ( requiring intubation on 2005), emphysema, ?dementia, who presents to the emergency department via EMS for further evaluation of shortness of breath. HPI limited as patient arrives in severe respiratory distress. As per patient's , his symptoms started approximately 1 month ago with an intermittent productive cough with yellow-green sputum. She states that his symptoms worsened over the the past 3 days, as he became increasingly short of breath. EMS was activated today, and on arrival, the patient was noted to be in the low 90s on a non-rebreather and was found to have diffuse expiratory wheezes in the field, and was in respiratory distress. He was given 10 milligrams of Decadron and received a second Combivent. He was also placed on BiPAP, with noted improvement of his shortness of breath and oxygen saturation of 98%. No fever, chills, sick contacts. History provided by EMS, old records and pts who is with him Daughter and say pt has shown little response over the past 2 hours; prior to that, he was talking. Allergies: No Known Drug Allergies. Past Surgical History: None reported Social History: Former cigarette use. No ETOH and recreational drug use. Primary Care Physician: Dr. Damaris Bautista Social Work Coordinator: Dr. Saqib Galaviz (Affiliated with [facility]) - Current Medication List Current Medications: Active Medications Acetaminophen (Tylenol -) 650 mg PO Q6H PRN PRN Reason: FEVER OR PAIN Last Admin: 11/05/16 18:54 Dose: 650 mg Aspirin (Ecotrin -) 81 mg PO DAILY [facility] Last Admin: 11/09/16 09:51 Dose: 81 mg Atorvastatin Calcium (Lipitor -) 10 mg PO HS [facility] Last Admin: 11/09/16 22:48 Dose: 10 mg Carvedilol (Coreg -) 12.5 mg PO BID [facility] Last Admin: 11/09/16 22:48 Dose: 12.5 mg Clopidogrel Bisulfate (Plavix -) 75 mg PO DAILY [facility] Last Admin: 04/12/17 09:51 Dose: 75 mg Docusate Sodium (Colace -) 100 mg PO DAILY [facility] Last Admin: 11/09/16 09:51 Dose: 100 mg Donepezil HCl (Aricept -) 5 mg PO DAILY [facility] Last Admin: 11/09/16 09:50 Dose: 5 mg Ergocalciferol (Drisdol -) 50,000 unit PO Q7D@1000 [facility] Last Admin: 11/08/16 12:35 Dose: 50,000 unit Ferrous Sulfate (Feosol -) 325 mg PO BID [facility] Last Admin: 11/09/16 22:48 Dose: 325 mg Finasteride (Proscar -) 5 mg PO DAILY [facility] Last Admin: 11/09/16 09:50 Dose: 5 mg Furosemide (Lasix Injection -) 60 mg IVPB BID@0600,1400 [facility] Last Admin: 11/10/16 06:14 Dose: 60 mg Gabapentin (Neurontin -) 300 mg PO BID [facility] Last Admin: 11/09/16 22:48 Dose: 300 mg Insulin Aspart (Novolog Vial Sliding Scale -) 1 vial SQ [facility] PRN Reason: Protocol Last Admin: 11/10/16 06:09 Dose: Not Given Insulin Detemir (Levemir Vial) 15 units SQ [facility] Last Admin: 11/09/16 22:49 Dose: 15 units Isosorbide Mononitrate (Imdur -) 30 mg PO DAILY [facility] Last Admin: 11/09/16 09:51 Dose: 30 mg Levetiracetam (Keppra -) 1,000 mg PO BID [facility] Last Admin: 11/09/16 22:48 Dose: 1,000 mg Lisinopril (Prinivil) 10 mg PO DAILY [facility] Last Admin: 11/09/16 09:50 Dose: 10 mg Methyl Salicylate (Girish-Mai -) 1 applic TP BID [facility] Last Admin: 11/09/16 22:49 Dose: 1 applic Mirtazapine (Remeron -) 15 mg PO HS [facility] Last Admin: 11/09/16 22:48 Dose: 15 mg Nifedipine (Procardia Xl -) 60 mg PO DAILY [facility] Last Admin: 11/09/16 09:50 Dose: 60 mg Ranitidine HCl (Zantac -) 150 mg PO BID [facility] Last Admin: 11/09/16 22:48 Dose: 150 mg Sitagliptin Phosphate (Januvia -) 50 mg PO DAILY@0700 [facility] Last Admin: 11/10/16 06:15 Dose: 50 mg Spironolactone (Aldactone -) 25 mg PO DAILY [facility] Last Admin: 11/09/16 09:50 Dose: 25 mg Tamsulosin HCl (Flomax -) 0.4 mg PO DAILY@0830 [facility] Last Admin: 11/10/16 08:40 Dose: 0.4 mg - Objective Vital Signs: Vital Signs Temperature 97.7 F 11/10/16 08:54 Pulse Rate 65 11/10/16 08:54 Respiratory Rate 20 11/10/16 08:54 Blood Pressure 134/85 11/10/16 08:54 O2 Sat by Pulse Oximetry (%) 97 11/10/16 08:50 Constitutional: Yes: No Distress Eyes: Yes: WNL HENT: Yes: WNL Neck: Yes: WNL Cardiovascular: Yes: Regular Rate and Rhythm Respiratory: Yes: Regular ...Rectal Exam: Yes: Deferred Genitourinary: No: Anuria Integumentary: Yes: WNL Neurological: Yes: Alert, Oriented Psychiatric: Yes: WNL Labs: CBC, BMP 11/10/16 05:35 11/10/16 05:35 INR, PTT INR 1.19 (0.82-1.09) H D 11/01/16 13:09 Problem List - Problems (1) Acute respiratory disease Assessment/Plan: Bipap, bronchodilators, steroids, antibiotics per pulmonary and ID. Code(s): J06.9 - ACUTE UPPER RESPIRATORY INFECTION, UNSPECIFIED (2) Atrial flutter Assessment/Plan: on carvedilol for HR control (and systolic CHF). On ASA and clopidogrel (CAD; ?hx GI bleed precludes addition of anticoagulant). Code(s): I48.92 - UNSPECIFIED ATRIAL FLUTTER Qualifiers: (3) Stented coronary artery Assessment/Plan: Continue antiischemic medication. Increase physical/cardiac exercise. Code(s): Z95.5 - PRESENCE OF CORONARY ANGIOPLASTY IMPLANT AND GRAFT (4) CVA (cerebral infarction) Assessment/Plan: f/u with neurologist. 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 Code(s): E11.610 - TYPE 2 DIABETES MELLITUS W DIABETIC NEUROPATHIC ARTHROPATHY Qualifiers: Qualified Code(s): E11.618 - Type 2 diabetes mellitus with other diabetic arthropathy; Z79.4 - FPC (current) use of insulin (9) Acute on chronic systolic and diastolic heart failure, NYHA class 1 Assessment/Plan: BNP >15,000 +JVP CXR: continued significant pulmonary vascular congestion and pleural effusion. On IV furosemide. BP elevated. Plan: Continue carvedillol, lisinopril. As discussed with Dr. Snyder, start spironolactone (25 mg daily). F/u BUN/Cr, electrolytes. (Pt with chronic renal dysfunction; Cr 1.9-->2.1 this admission). F/u workup for BPH (no Metcalf; has condom "cath"). Code(s): I50.43 - ACUTE ON CHRONIC COMBINED SYSTOLIC AND DIASTOLIC HRT FAIL
[2016-11-10] MEDS ORDERED: PT OWN MED DRAWER 7, Y5N ONE (12:06)
[2016-11-10] MEDS: CLOPIDOGREL BISULFATE 75 MG TABLET (FP) PO SCH (12:08)
[2016-11-10] MEDS: GABAPENTIN 300 MG CAPSULE (FP) PO SCH ×2 (12:08→21:16)
[2016-11-10] MEDS: DOCUSATE SODIUM 100 MG CAPSULE (FP) PO SCH (12:08)
[2016-11-10] MEDS: CARVEDILOL 12.5 MG TABLET (FP) PO SCH ×2 (12:08→21:16)
[2016-11-10] MEDS: FERROUS SO4 325 MG TABLET (FP) PO SCH ×2 (12:09→21:16)
[2016-11-10] MEDS: SPIRONOLACTONE 25 MG TABLET (FP) PO SCH (12:09)
[2016-11-10] MEDS: LISINOPRIL 10 MG TABLET (FP) PO SCH (12:09)
[2016-11-10] MEDS: FINASTERIDE 5 MG TABLET (FP) PO SCH (12:09)
[2016-11-10] MEDS: NIFEdipine E.R 60 MG TABLET (UD) PO SCH (12:09)
[2016-11-10] MEDS: ISOSORBIDE MONONITRATE 30 MG TAB.SR.24H (FP) PO SCH (12:09)
[2016-11-10] MEDS: ASPIRIN COATED 81 MG TABLET.EC PO SCH (12:09)
[2016-11-10] MEDS: RANITIDINE HCL 150 MG TABLET (FP) PO SCH ×2 (12:09→21:16)
[2016-11-10] MEDS: levETIRAcetam 500 MG TABLET (FP) PO SCH ×2 (12:09→21:16)
[2016-11-10] MEDS: DONEPEZIL HCL 5 MG TABLET (FP) PO SCH (12:09)
[2016-11-10] MEDS: METHYL SALICYLATE/MENTHOL OINT 30 GM TUBE TP SCH ×2 (12:12→21:16)
--- NOTE | 2016-11-10 14:33 | PN ---
Progress Note (short form) - Note Progress Note: PULMONARY Breathing continues to improve. Occasional nonproductive cough. No fevers recorded. Last Vital Signs Temp Pulse Resp BP Pulse Ox 98.8 F 65 20 104/48 97 11/10/16 14:07 11/10/16 08:54 11/10/16 14:07 11/10/16 14:07 11/10/16 08:50 Gen: NAD at rest Heart: RRR Lung: decreased breath sounds at the bases Abd: soft, nontender Ext: no edema CBC, BMP 11/10/16 05:35 11/10/16 05:35 Active Medications Acetaminophen (Tylenol -) 650 mg PO Q6H PRN PRN Reason: FEVER OR PAIN Last Admin: 11/05/16 18:54 Dose: 650 mg Aspirin (Ecotrin -) 81 mg PO DAILY [facility] Last Admin: 11/10/16 12:09 Dose: 81 mg Atorvastatin Calcium (Lipitor -) 10 mg PO HS [facility] Last Admin: 11/09/16 22:48 Dose: 10 mg Carvedilol (Coreg -) 12.5 mg PO BID [facility] Last Admin: 11/10/16 12:08 Dose: 12.5 mg Clopidogrel Bisulfate (Plavix -) 75 mg PO DAILY [facility] Last Admin: 11/10/16 12:08 Dose: 75 mg Docusate Sodium (Colace -) 100 mg PO DAILY [facility] Last Admin: 11/10/16 12:08 Dose: 100 mg Donepezil HCl (Aricept -) 5 mg PO DAILY [facility] Last Admin: 11/10/16 12:09 Dose: 5 mg Ergocalciferol (Drisdol -) 50,000 unit PO Q7D@1000 [facility] Last Admin: 11/08/16 12:35 Dose: 50,000 unit Ferrous Sulfate (Feosol -) 325 mg PO BID [facility] Last Admin: 11/10/16 12:09 Dose: 325 mg Finasteride (Proscar -) 5 mg PO DAILY [facility] Last Admin: 11/10/16 12:09 Dose: 5 mg Furosemide (Lasix Injection -) 60 mg IVPB BID@0600,1400 [facility] Last Admin: 11/10/16 14:09 Dose: 60 mg Gabapentin (Neurontin -) 300 mg PO BID [facility] Last Admin: 11/10/16 12:08 Dose: 300 mg Insulin Aspart (Novolog Vial Sliding Scale -) 1 vial SQ [facility] PRN Reason: Protocol Last Admin: 11/10/16 12:14 Dose: 2 units Insulin Detemir (Levemir Vial) 15 units SQ [facility] Last Admin: 11/09/16 22:49 Dose: 15 units Isosorbide Mononitrate (Imdur -) 30 mg PO DAILY [facility] Last Admin: 11/10/16 12:09 Dose: 30 mg Levetiracetam (Keppra -) 1,000 mg PO BID [facility] Last Admin: 11/10/16 12:09 Dose: 1,000 mg Lisinopril (Prinivil) 10 mg PO DAILY [facility] Last Admin: 11/10/16 12:09 Dose: 10 mg Methyl Salicylate (Girish-Mai -) 1 applic TP BID [facility] Last Admin: 11/10/16 12:12 Dose: 1 applic Mirtazapine (Remeron -) 15 mg PO HS [facility] Last Admin: 11/09/16 22:48 Dose: 15 mg Nifedipine (Procardia Xl -) 60 mg PO DAILY [facility] Last Admin: 11/10/16 12:09 Dose: 60 mg Ranitidine HCl (Zantac -) 150 mg PO BID [facility] Last Admin: 11/10/16 12:09 Dose: 150 mg Sitagliptin Phosphate (Januvia -) 50 mg PO DAILY@0700 [facility] Last Admin: 11/10/16 06:15 Dose: 50 mg Spironolactone (Aldactone -) 25 mg PO DAILY [facility] Last Admin: 11/10/16 12:09 Dose: 25 mg Tamsulosin HCl (Flomax -) 0.4 mg PO DAILY@0830 [facility] Last Admin: 11/10/16 08:40 Dose: 0.4 mg A/P Acute on Chronic Hypoxic and Hypercapneic Respiratory Failure improving Acute on Chronic LV Systolic Heart Failure CAD Atrial fibrillation HTN DM CKD Seizure Disorder - continue lasix, aldactone - monitor urine output, creatinine - inhaled bronchodilators - rate controlled - O2 as needed - BiPAP at night and PRN during day - DVT prophylaxis
--- NOTE | 2016-11-10 15:23 | PN ---
Progress Note, Physician History of Present Illness: Pt seen and examined at bedside. He is awake and alert. He feels that his breathing is improved. - Current Medication List Current Medications: Active Medications Acetaminophen (Tylenol -) 650 mg PO Q6H PRN PRN Reason: FEVER OR PAIN Last Admin: 11/05/16 18:54 Dose: 650 mg Aspirin (Ecotrin -) 81 mg PO DAILY [facility] Last Admin: 11/10/16 12:09 Dose: 81 mg Atorvastatin Calcium (Lipitor -) 10 mg PO HS [facility] Last Admin: 11/09/16 22:48 Dose: 10 mg Carvedilol (Coreg -) 12.5 mg PO BID [facility] Last Admin: 11/10/16 12:08 Dose: 12.5 mg Clopidogrel Bisulfate (Plavix -) 75 mg PO DAILY [facility] Last Admin: 11/10/16 12:08 Dose: 75 mg Docusate Sodium (Colace -) 100 mg PO DAILY [facility] Last Admin: 11/10/16 12:08 Dose: 100 mg Donepezil HCl (Aricept -) 5 mg PO DAILY [facility] Last Admin: 11/10/16 12:09 Dose: 5 mg Ergocalciferol (Drisdol -) 50,000 unit PO Q7D@1000 [facility] Last Admin: 11/08/16 12:35 Dose: 50,000 unit Ferrous Sulfate (Feosol -) 325 mg PO BID [facility] Last Admin: 11/10/16 12:09 Dose: 325 mg Finasteride (Proscar -) 5 mg PO DAILY [facility] Last Admin: 11/10/16 12:09 Dose: 5 mg Furosemide (Lasix Injection -) 60 mg IVPB BID@0600,1400 [facility] Last Admin: 11/10/16 14:09 Dose: 60 mg Gabapentin (Neurontin -) 300 mg PO BID [facility] Last Admin: 11/10/16 12:08 Dose: 300 mg Insulin Aspart (Novolog Vial Sliding Scale -) [address] [facility] PRN Reason: Protocol Last Admin: 11/10/16 12:14 Dose: 2 units Insulin Detemir (Levemir Vial) 15 units SQ HS [facility] Last Admin: 11/09/16 22:49 Dose: 15 units Isosorbide Mononitrate (Imdur -) 30 mg PO DAILY [facility] Last Admin: 11/10/16 12:09 Dose: 30 mg Levetiracetam (Keppra -) 1,000 mg PO BID [facility] Last Admin: 11/10/16 12:09 Dose: 1,000 mg Lisinopril (Prinivil) 10 mg PO DAILY [facility] Last Admin: 11/10/16 12:09 Dose: 10 mg Methyl Salicylate (Girish-Mai -) 1 applic TP BID [facility] Last Admin: 11/10/16 12:12 Dose: 1 applic Mirtazapine (Remeron -) 15 mg PO HS [facility] Last Admin: 11/09/16 22:48 Dose: 15 mg Nifedipine (Procardia Xl -) 60 mg PO DAILY [facility] Last Admin: 11/10/16 12:09 Dose: 60 mg Ranitidine HCl (Zantac -) 150 mg PO BID [facility] Last Admin: 11/10/16 12:09 Dose: 150 mg Sitagliptin Phosphate (Januvia -) 50 mg PO DAILY@0700 [facility] Last Admin: 11/10/16 06:15 Dose: 50 mg Spironolactone (Aldactone -) 25 mg PO DAILY [facility] Last Admin: 11/10/16 12:09 Dose: 25 mg Tamsulosin HCl (Flomax -) 0.4 mg PO DAILY@0830 [facility] Last Admin: 11/10/16 08:40 Dose: 0.4 mg - Objective Vital Signs: Vital Signs Temperature 98.8 F 11/10/16 14:07 Pulse Rate 65 11/10/16 08:54 Respiratory Rate 20 11/10/16 14:07 Blood Pressure 104/48 11/10/16 14:07 O2 Sat by Pulse Oximetry (%) 97 11/10/16 08:50 Constitutional: Yes: Calm HENT: Yes: Atraumatic Neck: Yes: Supple Cardiovascular: Yes: S1, S2 Respiratory: Yes: CTA Bilaterally Gastrointestinal: Yes: Soft Genitourinary: Yes: WNL Musculoskeletal: Yes: WNL Edema: No Neurological: Yes: Oriented Psychiatric: Yes: Oriented Labs: CBC, BMP 11/10/16 05:35 11/10/16 05:35 INR, PTT INR 1.19 (0.82-1.09) H D 11/01/16 13:09 Problem List - Problems (1) CHF (congestive heart failure) Code(s): I50.9 - HEART FAILURE, UNSPECIFIED Qualifiers: Qualified Code(s): I50.43 - Acute on chronic combined systolic ( congestive) and diastolic (congestive) heart failure (2) Stented coronary artery Code(s): Z95.5 - PRESENCE OF CORONARY ANGIOPLASTY IMPLANT AND GRAFT (3) CKD (chronic kidney disease) Code(s): N18.9 - CHRONIC KIDNEY DISEASE, UNSPECIFIED (4) COPD (chronic obstructive pulmonary disease) Code(s): J44.9 - CHRONIC OBSTRUCTIVE PULMONARY DISEASE, UNSPECIFIED Assessment/Plan Current Medications Generic Name Dose Route Start Last Admin Trade Name Freq PRN Reason Stop Dose Admin Acetaminophen 650 mg 11/01/16 19:45 11/05/16 18:54 Tylenol - PO 650 mg Q6H PRN Administration FEVER OR PAIN Aspirin 81 mg 11/02/16 10:00 11/10/16 12:09 Ecotrin - PO 81 mg DAILY [facility] Administration Atorvastatin Calcium 10 mg 11/01/16 22:00 11/09/16 22:48 Lipitor - PO 10 mg HS [facility] Administration Carvedilol 12.5 mg 11/01/16 22:00 11/10/16 12:08 Coreg - PO 12.5 mg BID [facility] Administration Clopidogrel Bisulfate 75 mg 11/02/16 10:00 11/10/16 12:08 Plavix - PO 75 mg DAILY [facility] Administration Docusate Sodium 100 mg 11/02/16 10:00 11/10/16 12:08 Colace - PO 100 mg DAILY [facility] Administration Donepezil HCl 5 mg 11/02/16 10:00 11/10/16 12:09 Aricept - PO 5 mg DAILY [facility] Administration Ergocalciferol 50,000 unit 11/08/16 10:00 11/08/16 12:35 Drisdol - PO 50,000 unit Q7D@1000 [facility] Administration Ferrous Sulfate 325 mg 11/01/16 22:00 11/10/16 12:09 Feosol - PO 325 mg BID [facility] Administration Finasteride 5 mg 11/02/16 10:00 11/10/16 12:09 Proscar - PO 5 mg DAILY [facility] Administration Furosemide 60 mg 11/05/16 06:00 11/10/16 14:09 Lasix Injection - IVPB 60 mg BID@0600,1400 [facility] Administration Gabapentin 300 mg 11/01/16 22:00 11/10/16 12:08 Neurontin - PO 300 mg BID [facility] Administration Insulin Aspart 1 vial 11/01/16 22:00 11/10/16 12:14 Novolog Vial Sliding Scale - SQ 2 units ACHS [facility] Administration Protocol Insulin Detemir 15 units 11/01/16 22:00 11/09/16 22:49 Levemir Vial SQ 15 units HS [facility] Administration Isosorbide Mononitrate 30 mg 11/02/16 10:00 11/10/16 12:09 Imdur - PO 30 mg DAILY [facility] Administration Levetiracetam 1,000 mg 11/01/16 22:00 11/10/16 12:09 Keppra - PO 1,000 mg BID [facility] Administration Lisinopril 10 mg 11/02/16 10:00 11/10/16 12:09 Prinivil PO 10 mg DAILY [facility] Administration Methyl Salicylate 1 applic 11/02/16 10:00 11/10/16 12:12 Girish-Mai - TP 1 applic BID PASCUAL Administration Mirtazapine 15 mg 11/01/16 22:00 11/09/16 22:48 Remeron - PO 15 mg HS PASCUAL Administration Nifedipine 60 mg 11/02/16 10:00 11/10/16 12:09 Procardia Xl - PO 60 mg DAILY PASCUAL Administration Ranitidine HCl 150 mg 11/06/16 10:00 11/10/16 12:09 Zantac - PO 150 mg BID PASCUAL Administration Sitagliptin Phosphate 50 mg 11/02/16 07:00 11/10/16 06:15 Januvia - PO 50 mg DAILY@0700 PASCUAL Administration Spironolactone 25 mg 11/06/16 11:30 11/10/16 12:09 Aldactone - PO 25 mg DAILY PASCUAL Administration Tamsulosin HCl 0.4 mg 11/02/16 08:30 11/10/16 08:40 Flomax - PO 0.4 mg DAILY@0830 PASCUAL Administration Impression 1. CKD 2. hypoxia 3. hx CVA 4. DM 5. epilepsy 6. hyperlipidemia 7. hx anemia 8. hx a-fib 9. hypokalemia 10. CAD 11. acute CHF Plan - can switch lasix to PO. pt had previously been on lasix 40 mg po daily however I do not think that is enough to keep him euvolemic - repeat labs in am - will see pt in office after discharge - can keep on michael - will follow Dr Jc
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
[2016-11-10] MEDS ORDERED: oxyCODONE HCL 5 MG TABLET PO PRN (19:49)
[2016-11-10] MEDS: ACETAMINOPHEN 325 MG TABLET (FP) PO PRN (20:28)
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
[2016-11-10] MEDS: ATORVASTATIN CA 10 MG TABLET (FP) PO SCH (21:16)
[2016-11-10] MEDS: MIRTAZAPINE 15 MG TABLET (FP) PO SCH (21:16)
[2016-11-10] MEDS: INSULIN DETEMIR 100 UNITS/ML MDV SQ SCH (22:00)
[2016-11-11] MEDS ORDERED: FUROSEMIDE 40 MG TABLET (FP) PO SCH (06:00)
[2016-11-11] MEDS: sitaGLIPtin PHOSPHATE 50 MG TABLET PO SCH (06:19)
[2016-11-11] MEDS: INSULIN SLIDING SCALE (NOVOLOG) 1 VIAL SQ SCH (06:20)
--- NOTE | 2016-11-11 06:46 | DS ---
Physical Examination Vital Signs: Vital Signs Temperature 98 F 11/11/16 06:08 Pulse Rate 64 11/11/16 06:08 Respiratory Rate 20 11/11/16 06:08 Blood Pressure 152/75 11/11/16 06:08 O2 Sat by Pulse Oximetry (%) 99 11/10/16 21:00 Constitutional: Yes: Calm Neck: Yes: WNL Cardiovascular: Yes: WNL Respiratory: Yes: Rhonchi Gastrointestinal: Yes: WNL Edema: Yes Labs: CBC, BMP 11/10/16 05:35 11/10/16 05:35 Discharge Summary Reason For Visit: ACUTE RESP FAILURE/CHF Current Active Problems Abdominal pain (Acute) Acute on chronic respiratory failure with hypoxia and hypercapnia (Acute) Acute on chronic systolic and diastolic heart failure, NYHA class 1 (Acute) Acute respiratory disease (Acute) Altered mental status (Acute) Atrial flutter (Acute) Atypical chest pain (Acute) CHF (congestive heart failure) (Acute) Chronic systolic CHF (congestive heart failure) (Acute) Delirium (Acute) Dementia (Acute) Epilepsy (Acute) Hypokalemia (Acute) MRSA (methicillin resistant staph aureus) culture positive (Acute) Near syncope (Acute) Pacemaker (Acute) Stented coronary artery (Acute) Hospital Course: (1) Acute on chronic respiratory failure with hypoxia and hypercapnia Code(s): J96.21 - ACUTE AND CHRONIC RESPIRATORY FAILURE WITH HYPOXIA J96.22 - ACUTE AND CHRONIC RESPIRATORY FAILURE WITH HYPERCAPNIA (2) Acute on chronic systolic and diastolic heart failure, NYHA class 1 Code(s): I50.43 - ACUTE ON CHRONIC COMBINED SYSTOLIC AND DIASTOLIC HRT FAIL (3) Acute respiratory disease Code(s): J06.9 - ACUTE UPPER RESPIRATORY INFECTION, UNSPECIFIED (4) Atrial flutter Code(s): I48.92 - UNSPECIFIED ATRIAL FLUTTER Qualifiers: Qualified Code(s): I48.92 - Unspecified atrial flutter (5) Atypical chest pain Code(s): R07.89 - OTHER CHEST PAIN (6) Chronic systolic CHF (congestive heart failure) Code(s): I50.22 - CHRONIC SYSTOLIC (CONGESTIVE) HEART FAILURE (7) Pacemaker Code(s): Z95.0 - PRESENCE OF CARDIAC PACEMAKER (8) Acute on chronic renal failure Code(s): N17.9 - ACUTE KIDNEY FAILURE, UNSPECIFIED N18.9 - CHRONIC KIDNEY DISEASE, UNSPECIFIED (9) Acute on chronic systolic (congestive) heart failure Code(s): I50.23 - ACUTE ON CHRONIC SYSTOLIC (CONGESTIVE) HEART FAILURE (10) Acute respiratory failure Code(s): J96.00 - ACUTE RESPIRATORY FAILURE, UNSP W HYPOXIA OR HYPERCAPNIA (11) Diabetes mellitus Code(s): E11.9 - TYPE 2 DIABETES MELLITUS WITHOUT COMPLICATIONS Qualifiers: Qualified Code(s): E10.65 - Type 1 diabetes mellitus with hyperglycemia (12) HTN (hypertension) Code(s): I10 - ESSENTIAL (PRIMARY) HYPERTENSION Qualifiers: Qualified Code(s): I10 - Essential (primary) hypertension Assessment/Plan ACUTE CHF INCREASED DIURETICS RENAL AND CARDIOLOGY EVAL APPRECIATED ENDO CONSULTED FOR [facility] DM2 & FOR Rx RECOMMENDATIONS PATIENT IS NOT FOLLOWING A CHF/ADA/RENAL DIET DIETARY EVAL, EATING HOT DOGS BROUGHT FROM HOME BY THE FAMILY -> NUTRITION ON CASE NO PPI. 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 Condition: Stable - Instructions Diet, Activity, Other Instructions: Contact Isolation for MRSA in Blood Seizure Precautions Fall prevention protocol - Right hemiparesis Visual impairment - Blind R eye Daily physical therapy 2gm Na/1800 calorie diabetic diet Assist w/activities of daily living Referrals: Srini Nichols [Primary Care Provider] - Disposition: HOME - Home Medications Comprehensive Discharge Medication List: Ambulatory Orders Acetaminophen [Tylenol] 650 mg PO Q4H PRN 11/01/16 Albuterol 0.083% Nebulizer Bertha [Ventolin 0.083%] 1 neb NEB Q6H PRN 11/01/16 Aspirin [ASA -] 81 mg PO DAILY 11/01/16 Atorvastatin Ca [Lipitor] 10 mg PO HS 11/01/16 Carvedilol 12.5 mg PO DAILY 11/01/16 Clopidogrel Bisulfate [Plavix -] 75 mg PO DAILY 11/01/16 Docusate Sodium 200 mg PO HS 11/01/16 Donepezil HCl [Aricept -] 5 mg PO DAILY 11/01/16 Ergocalciferol [Drisdol -] 50,000 unit PO Q7D@1000 11/01/16 Ferrous Sulfate 325 mg PO DAILY 11/01/16 Finasteride 5 mg PO DAILY 11/01/16 Furosemide [Lasix -] 40 mg PO DAILY 11/01/16 Gabapentin 300 mg PO BID 11/01/16 Guaifenesin Dm [Robitussin Dm] 10 ml PO Q6H 11/01/16 Insulin (Levemir) [Levemir Flexpen -] 15 units SQ BID 11/01/16 Isosorbide Mononitrate [Isosorbide Mononitrate ER] 30 mg PO DAILY 11/01/16 Levetiracetam 1,000 mg PO BID 11/01/16 Levofloxacin [Levaquin] 500 mg PO DAILY 11/01/16 Lidocaine [Aspercreme] 1 each TP DAILY 11/01/16 Lisinopril 5 mg PO DAILY 11/01/16 Mirtazapine 15 mg PO HS 11/01/16 Nifedipine ER [Procardia Xl -] 60 mg PO DAILY 11/01/16 Pantoprazole Sodium 40 mg PO DAILY 11/01/16 Potassium Chloride 10 meq PO DAILY 11/01/16 Sitagliptin Phosphate [Januvia] 50 mg PO DAILY 11/01/16 Tamsulosin HCl [Flomax] 0.4 mg PO DAILY 11/01/16 Tolnaftate [Antifungal Cream] 15 gm TP BID 11/01/16 Tuberculin,Purif.prot.deriv. [Aplisol] 5 tub IM ONCE 11/01/16
[2016-11-11] MEDS ORDERED: TRESIBA INSULIN SQ SCH (07:00)
[2016-11-11 07:49] LABS: BASOPHIL 0.3 % (0-2.0); EOSINOPHIL 3.9 % (0-4.5); MCH 24.7 pg (25.7-33.7); MCHC 32.1 g/dl (32.0-35.9); MEAN CELL VOLUME 76.9 fl (80-96); MEAN PLT VOLUME 8.9 fl (7.5-11.1); NEUTROPHILS 75.6 % (42.8-82.8); PLATELET COUNT 170 K/MM3 (134-434); RDW 17.6 % (11.9-15.9)
[2016-11-11 08:10] VITALS: BP 139/72; PULSE 66; TEMP 97.8
[2016-11-11 08:16] LABS: ALBUMIN 2.2 g/dl (3.4-5.0); BILIRUBIN,TOTAL 0.3 mg/dL (0.2-1.0); CALCIUM 7.8 mg/dL (8.5-10.1); COCKROFT - GAULT 41.85; CREATININE 1.9 mg/dL (0.7-1.3); TOT PROT 5.9 g/dl (6.4-8.2)
[2016-11-11] MEDS: TAMSULOSIN HCL 0.4 MG CAP.ER.24H (FP) PO SCH (08:57)
[2016-11-11] MEDS: GABAPENTIN 300 MG CAPSULE (FP) PO SCH (09:09)
[2016-11-11] MEDS: SPIRONOLACTONE 25 MG TABLET (FP) PO SCH (09:09)
[2016-11-11] MEDS: FERROUS SO4 325 MG TABLET (FP) PO SCH (09:09)
[2016-11-11] MEDS: NIFEdipine E.R 60 MG TABLET (UD) PO SCH (09:09)
[2016-11-11] MEDS: levETIRAcetam 500 MG TABLET (FP) PO SCH (09:09)
[2016-11-11] MEDS: ISOSORBIDE MONONITRATE 30 MG TAB.SR.24H (FP) PO SCH (09:09)
[2016-11-11] MEDS: LISINOPRIL 10 MG TABLET (FP) PO SCH (09:10)
[2016-11-11] MEDS: DONEPEZIL HCL 5 MG TABLET (FP) PO SCH (09:10)
[2016-11-11] MEDS: CARVEDILOL 12.5 MG TABLET (FP) PO SCH (09:10)
[2016-11-11] MEDS: CLOPIDOGREL BISULFATE 75 MG TABLET (FP) PO SCH (09:10)
[2016-11-11] MEDS: RANITIDINE HCL 150 MG TABLET (FP) PO SCH (09:10)
[2016-11-11] MEDS: ASPIRIN COATED 81 MG TABLET.EC PO SCH (09:10)
[2016-11-11] MEDS: DOCUSATE SODIUM 100 MG CAPSULE (FP) PO SCH (09:10)
[2016-11-11] MEDS: FINASTERIDE 5 MG TABLET (FP) PO SCH (09:11)
--- NOTE | 2016-11-11 14:33 | PN ---
Progress Note, Physician History of Present Illness: The patient is a 62-year-old man, accompanied by , with a significant past medical history of hypertension, chronic obstructive pulmonary disease ( requiring intubation on 2005) and emphysema who presents to the emergency department via EMS for further evaluation of shortness of breath. HPI limited as patient arrives in severe respiratory distress. As per patient's , his symptoms started approximately 1 month ago with an intermittent productive cough with yellow-green sputum. She states that his symptoms worsened over the the past 3 days, as he became increasingly short of breath. EMS was activated today, and on arrival, the patient was noted to be in the low 90s on a non- rebreather and was found to have diffuse expiratory wheezes in the field, and was in respiratory distress. He was given 10 milligrams of Decadron and received a second Combivent. He was also placed on BiPAP, with noted improvement of his shortness of breath and oxygen saturation of 98%. No fever, chills, sick contacts. History provided by EMS, old records and pts who is with him Daughter and say pt has shown little response over the past 2 hours; prior to that, he was talking. - Objective Vital Signs: Vital Signs Temperature 97.8 F 11/11/16 08:07 Pulse Rate 66 11/11/16 08:07 Respiratory Rate 20 11/11/16 08:11 Blood Pressure 139/72 11/11/16 08:07 O2 Sat by Pulse Oximetry (%) 99 11/10/16 21:00 Eyes: Yes: WNL, Conjunctiva Clear, EOM Intact HENT: Yes: WNL, Atraumatic, Normocephalic Neck: Yes: WNL, Supple, Trachea Midline Cardiovascular: Yes: WNL, Regular Rate and Rhythm Respiratory: Yes: WNL, Regular, CTA Bilaterally Gastrointestinal: Yes: WNL, Normal Bowel Sounds Genitourinary: Yes: WNL Musculoskeletal: Yes: WNL Extremities: Yes: WNL Edema: No Integumentary: Yes: WNL Neurological: Yes: WNL, Alert, Oriented ...Motor Strength: WNL Psychiatric: Yes: WNL Labs: CBC, BMP 11/11/16 05:48 11/11/16 05:48 INR, PTT INR 1.19 (0.82-1.09) H D 11/01/16 13:09 Assessment/Plan - Problems (1) Acute respiratory disease Assessment/Plan: Bipap, bronchodilators, steroids, antibiotics per pulmonary and ID. Code(s): J06.9 - ACUTE UPPER RESPIRATORY INFECTION, UNSPECIFIED (2) Atrial flutter Assessment/Plan: on carvedilol for HR control (and systolic CHF). On ASA and clopidogrel (CAD; ?hx GI bleed precludes addtion of anticoagulant). Code(s): I48.92 - UNSPECIFIED ATRIAL FLUTTER Qualifiers: Qualified Code(s): I48.92 - Unspecified atrial flutter (3) Stented coronary artery Code(s): Z95.5 - PRESENCE OF CORONARY ANGIOPLASTY IMPLANT AND GRAFT (4) CVA (cerebral infarction) Code(s): I63.9 - CEREBRAL INFARCTION, UNSPECIFIED Qualifiers: Qualified Code(s): I63.9 - Cerebral infarction, unspecified (5) GERD (gastroesophageal reflux disease) Code(s): K21.9 - GASTRO-ESOPHAGEAL REFLUX DISEASE WITHOUT ESOPHAGITIS (6) HLD (hyperlipidemia) Code(s): E78.5 - HYPERLIPIDEMIA, UNSPECIFIED (7) HTN (hypertension) Code(s): I10 - ESSENTIAL (PRIMARY) HYPERTENSION Qualifiers: Qualified Code(s): I10 - Essential (primary) hypertension (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 Code(s): E11.610 - TYPE 2 DIABETES MELLITUS W DIABETIC NEUROPATHIC ARTHROPATHY Qualifiers: Qualified Code(s): E11.618 - Type 2 diabetes mellitus with other diabetic arthropathy; Z79.4 - jail (current) use of insulin (9) Acute on chronic systolic and diastolic heart failure, NYHA class 1 Assessment/Plan: On IV furosemide. Plan: Continue carvedillol, lisinopril.
== END 2016-11-11 11:18 | DRG 291 ==
LOC: JER 12:32 → JERBED 16:17 → J4W 19:02
PROVIDERS: ADMIT Family Medicine; ATTEND Family Medicine
PROC: 5A09357 Assistance with Respiratory Ventilation, Less than 24 Consecutive Hours, Continuous Positive Airway Pressure (ICD-10-PCS; principal; 2016-11-01)
DX: I13.0 Hypertensive heart and chronic kidney disease with heart failure and stage 1 through stage 4 chronic kidney disease, or unspecified chronic kidney disease (principal); J96.22 Acute and chronic respiratory failure with hypercapnia; J96.21 Acute and chronic respiratory failure with hypoxia; I48.92 Unspecified atrial flutter; I69.351 Hemiplegia and hemiparesis following cerebral infarction affecting right dominant side; N17.9 Acute kidney failure, unspecified; F03.90 Unspecified dementia, unspecified severity, without behavioral disturbance, psychotic disturbance, mood disturbance, and anxiety; D64.9 Anemia, unspecified; I25.2 Old myocardial infarction; Z79.4 Long term (current) use of insulin; J44.9 Chronic obstructive pulmonary disease, unspecified; Z87.891 Personal history of nicotine dependence; K21.9 Gastro-esophageal reflux disease without esophagitis; E11.610 Type 2 diabetes mellitus with diabetic neuropathic arthropathy; E78.5 Hyperlipidemia, unspecified; E11.22 Type 2 diabetes mellitus with diabetic chronic kidney disease; N18.9 Chronic kidney disease, unspecified; G40.909 Epilepsy, unspecified, not intractable, without status epilepticus; I48.91 Unspecified atrial fibrillation; I25.10 Atherosclerotic heart disease of native coronary artery without angina pectoris; E87.6 Hypokalemia; Z95.0 Presence of cardiac pacemaker; Z95.5 Presence of coronary angioplasty implant and graft; E11.42 Type 2 diabetes mellitus with diabetic polyneuropathy
CPT/HCPCS: 36415; 36600; 71010-TC; 80048; 80053; 80061; 82550; 82803; 83036; 83605; 83721; 83735; 83880; 84484; 85025; 85027; 85610; 86850; 86900; 86901; 87040; 87804; 93005; 93010; 93306-TC; 94640; 94660; 99285-25

== ENCOUNTER 2016-11-18 17:58 | Inpatient (IN) | payer OTHER ==
[2016-11-18 18:23] LABS: BASOPHIL 0.5 % (0-2.0); EOSINOPHIL 2.6 % (0-4.5); MCH 24.8 pg (25.7-33.7); MCHC 31.2 g/dl (32.0-35.9); MEAN CELL VOLUME 79.5 fl (80-96); MEAN PLT VOLUME 8.9 fl (7.5-11.1); NEUTROPHILS 75.7 % (42.8-82.8); PLATELET COUNT 245 K/MM3 (134-434); WHITE BLOOD COUNT 8.4 K/mm3 (4.0-10.0)
--- NOTE | 2016-11-18 18:25 | PDOC ---
History of Present Illness - History of Present Illness Initial Comments: 11/18/16 18:58 Patient is a 75 year old male, from [facility], with significant medical hx of dementia, CVA w/ right sided weakness, AFib, DM, CKD, COPD (s/p intubation 2005), CHF, HTN, HLD, and TN s/p stents who is presenting to the ED in respiratory distress since last night. Per family, the patient has been dyspneic that worsens when the patient lies flat; he was also noted to have an O2Sat of 78%. Family also report the patient has been coughing a lot and was witnessed foaming at the mouth last night. Family member endorses the patient has had decreased urinary output despite taking in fluids. Today the patient appeared confused and was reportedly hallucinating. The patient denies chest pain, headache and dizziness. Denies fever, chills, nausea, vomiting, diarrhea and constipation. Denies dysuria, frequency, urgency and hematuria. <Sangeeta Gallagher - Last Filed: 11/18/16 18:58> - General History Source: Patient Exam Limitations: No Limitations <Roxanne Grubbs - Last Filed: 11/19/16 17:12> <Marilin Lanier - Last Filed: 11/20/16 01:08> - General Chief Complaint: Respiratory Stated Complaint: DIFFICULTY BREATHING Time Seen by Provider: 11/18/16 18:00 Past History <Sangeeta Gallagher - Last Filed: 11/18/16 18:58> - Past Medical History Anemia: Yes Asthma: No Cancer: No Cardiac Disorders: Yes (mi 1992) 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)) COPD: No CHF: Yes Dementia: Yes Diabetes: Yes GI Disorders: Yes (Gastritis) Disorders: No HTN: Yes Hypercholesterolemia: Yes Liver Disease: No Suicide Attempt (Hx): No Seizures: Yes (epilepsy) Thyroid Disease: No - Surgical History Abdominal Surgery: Yes Appendectomy: No Cardiac Surgery: No Cholecystectomy: Yes Lung Surgery: No Neurologic Surgery: No Orthopedic Surgery: Yes (R HAND) - Immunization History Immunization Up to Date: No - Psycho/Social/Smoking Cessation Hx Anxiety: No Suicidal Ideation: No Smoking History: Never smoked Have you smoked in the past 12 months: No Number of Cigarettes Smoked Daily: 0 Hx Alcohol Use: No Drug/Substance Use Hx: No Substance Use Type: None Hx Substance Use Treatment: No <Roxanne Grubbs - Last Filed: 11/19/16 17:12> <Marilin Lanier - Last Filed: 11/20/16 01:08> - Past Medical History Allergies/Adverse Reactions: Allergies Allergy/AdvReac Type Severity Reaction Status Date / Time No Known Allergies Allergy Verified 11/18/16 18:10 Home Medications: Ambulatory Orders Acetaminophen [Tylenol] 650 mg PO Q6H PRN 11/18/16 Aspirin [Ecotrin] 81 mg PO DAILY 11/18/16 Atorvastatin Ca [Lipitor] 10 mg PO HS 11/18/16 Carvedilol [Coreg] 12.5 mg PO BID 11/18/16 Clopidogrel Bisulfate [Plavix -] 75 mg PO DAILY 11/18/16 Docusate Sodium [Colace -] 100 mg PO DAILY 11/18/16 Donepezil HCl [Aricept] 5 mg PO DAILY 11/18/16 Ergocalciferol [Drisdol -] 50,000 unit PO Q7D@1000 11/18/16 Ferrous Sulfate [Feosol] 325 mg PO BID 11/18/16 Finasteride 5 mg PO DAILY 11/18/16 Furosemide 20 mg PO BID 11/18/16 Gabapentin [Neurontin] 300 mg PO BID 11/18/16 Insulin Degludec [Tresiba Flextouch U-100] 42 unit SQ DAILY 11/18/16 Isosorbide Mononitrate [Imdur -] 30 mg PO DAILY 11/18/16 Levetiracetam [Keppra -] 1,000 mg PO BID 11/18/16 Lidocaine [Aspercreme] 1 each TP DAILY 11/18/16 Lisinopril 10 mg PO DAILY 11/18/16 Mirtazapine [Remeron Soltab -] 15 mg PO HS 11/18/16 Nifedipine ER [Procardia Xl -] 60 mg PO DAILY 11/18/16 Oxycodone HCl 10 mg PO Q6H PRN 11/18/16 Pantoprazole Sodium 40 mg PO DAILY 11/18/16 Potassium Chloride 10 meq PO DAILY 11/18/16 Ranitidine [Zantac -] 150 mg PO BID 11/18/16 Spironolactone [Aldactone] 25 mg PO DAILY 11/18/16 Tamsulosin HCl [Flomax] 0.4 mg PO DAILY 11/18/16 Tolnaftate 1% Cream [Tinactin 1% Cream -] 1 applic TP BID 11/18/16 Review of Systems - Review of Systems Comments:: 11/18/16 19:04 GENERAL/CONSTITUTIONAL: No: fever, chills, weakness, loss of appetite. HEAD, EYES, EARS, NOSE AND THROAT: No: change in vision, ear pain, discharge, sore throat, throat swelling. CARDIOVASCULAR: No: chest pain, lightheadedness, palpitations, syncope RESPIRATORY: Yes: shortness of breath, cough, orthopnea. No: wheezing, hemoptysis, stridor. GASTROINTESTINAL: No: nausea, vomiting, abdominal cramping, diarrhea, rectal bleeding, constipation. GENITOURINARY: Yes: decreased urinary output. No: dysuria, hematuria, frequency , urgency, flank pain. MUSCULOSKELET AL: No: back pain, neck pain, joint pain, muscle swelling or pain SKIN AND BREASTS: No: lesions, pallor, rash or easy bruising. NEUROLOGIC: Yes: confusion, hallucinating. No: headache, vertigo, paresthesias, weakness ENDOCRINE: No: unexplained weight gain or loss HEMATOLOGIC/LYMPHATIC: No: anemia, easy bleeding, swelling nodes <Elliott,Sangeeta - Last Filed: 11/18/16 18:58> *Physical Exam - Vital Signs Last Vital Signs Temp Pulse Resp BP Pulse Ox 98.2 F 74 18 115/66 95 11/18/16 18:06 11/18/16 18:06 11/18/16 18:06 11/18/16 18:06 11/18/16 18:28 - Physical Exam Comments: 11/18/16 19:06 GENERAL: The patient is in no acute distress. HEAD: Normal with no signs of trauma. EYES: Fake right eye. Left PERRLA, left EOMI, sclera anicteric, conjunctiva clear. ENT: Ears normal, nares patent, oropharynx clear without exudates. Moist mucous membranes. NECK: Normal range of motion, supple without lymphadenopathy, JVD, or masses. LUNGS: Respiratory distress, tachypneic, decreased breath sounds at the bilateral bases. HEART: Regular rate and rhythm, normal S1 and S2 without murmur, rub or gallop. ABDOMEN: Soft, nontender, normoactive bowel sounds. No guarding, no rebound. EXTREMITIES: Normal range of motion, no edema. No clubbing or cyanosis. No erythema, or tenderness. NEUROLOGICAL: Cranial nerves II through XII grossly intact. Normal speech. No focal neurological deficits. MUSCULOSKELETAL: Back non-tender to palpation, no CVA tenderness SKIN: Warm, Dry, normal turgor, no rashes or lesions noted. <Sangeeta Gallagher - Last Filed: 11/18/16 18:58> - Vital Signs Last Vital Signs Temp Pulse Resp BP Pulse Ox 98.2 F 74 18 115/66 91 L 11/18/16 18:06 11/18/16 18:06 11/18/16 18:06 11/18/16 18:06 11/18/16 18:06 <Roxanne Grubbs - Last Filed: 11/19/16 17:12> - Vital Signs Last Vital Signs Temp Pulse Resp BP Pulse Ox 98.2 F 74 18 115/66 97 11/18/16 18:06 11/18/16 18:06 11/18/16 18:06 11/18/16 18:06 11/18/16 19:09 <Marilin Lanier - Last Filed: 11/20/16 01:08> Heart Score/ECG Review #1 ECG reviewed & interpreted by me at: 19:13 11/18/16 19:13 V paced at 60 bpm <Roxanne Grubbs - Last Filed: 11/19/16 17:12> ED Treatment Course - LABORATORY CBC & Chemistry Diagram: 11/18/16 18:10 11/18/16 18:10 - ADDITIONAL ORDERS Additional order review: Laboratory Results 11/18/16 11/18/16 18:28 18:10 INR 1.22 H PTT (Actin FS) 33.1 D Urine Color Yellow Urine Appearance Clear Urine pH 5.0 D Ur Specific [place] 1.016 Urine Protein 2+ H Urine Glucose (UA) 1+ H Urine Ketones Negative Urine Blood Negative Urine Nitrite Negative Urine Bilirubin Negative Urine Urobilinogen Negative Ur Leukocyte Esterase Negative 11/18/16 18:10 RBC 3.59 L MCV 79.5 L MCHC 31.2 L RDW 19.0 H MPV 8.9 Neutrophils % 75.7 Lymphocytes % 10.1 Monocytes % 11.1 H Eosinophils % 2.6 Basophils % 0.5 - Medications Given in the ED: ED Medications Discontinued Medications Generic Name Dose Route Start Last Admin Trade Name Mehrdad PRN Reason Stop Dose Admin Furosemide 40 mg 11/18/16 18:29 11/18/16 18:49 Lasix Injection - IVPUSH 11/18/16 18:30 40 mg ONCE ONE Administration <ElliottSangeeta - Last Filed: 11/18/16 18:58> - LABORATORY CBC & Chemistry Diagram: 11/19/16 10:00 11/19/16 05:10 - RADIOLOGY Radiology Studies Ordered: Category Date Time Status CHEST X-RAY PORTABLE* [RAD] Stat Radiology 11/18/16 18:03 Taken <Roxanne Grubbs - Last Filed: 11/19/16 17:12> - LABORATORY CBC & Chemistry Diagram: 11/19/16 10:00 11/19/16 05:10 - ADDITIONAL ORDERS Additional order review: Laboratory Results 11/18/16 11/18/16 11/18/16 18:28 18:10 18:10 INR PTT (Actin FS) Sodium Potassium Chloride Carbon Dioxide Anion Gap BUN Creatinine Creat Clearance w eGFR Random Glucose Lactic Acid 0.598 Calcium Total Bilirubin AST ALT Alkaline Phosphatase Creatine Kinase Troponin I B-Natriuretic Peptide 97891.57 H Total Protein Albumin Urine Color Yellow Urine Appearance Clear Urine pH 5.0 D Ur Specific [place] 1.016 Urine Protein 2+ H Urine Glucose (UA) 1+ H Urine Ketones Negative Urine Blood Negative Urine Nitrite Negative Urine Bilirubin Negative Urine Urobilinogen Negative Ur Leukocyte Esterase Negative Urine RBC 1 Urine WBC 1 Hyaline Casts 6 Urine Mucus Rare 11/18/16 11/18/16 18:10 18:10 INR 1.22 H PTT (Actin FS) 33.1 D Sodium 138 Potassium 5.4 H D Chloride 100 Carbon Dioxide 30 D Anion Gap 8 BUN 62 H D Creatinine 3.0 H D Creat Clearance w eGFR 20.62 Random Glucose 172 H Lactic Acid Calcium 8.0 L Total Bilirubin 0.3 AST 32 D ALT 85 H D Alkaline Phosphatase 111 Creatine Kinase 51 Troponin I 3.29 H* D B-Natriuretic Peptide Total Protein 6.6 Albumin 2.6 L Urine Color Urine Appearance Urine pH Ur Specific [place] Urine Protein Urine Glucose (UA) Urine Ketones Urine Blood Urine Nitrite Urine Bilirubin Urine Urobilinogen Ur Leukocyte Esterase Urine RBC Urine WBC Hyaline Casts Urine Mucus 11/18/16 18:10 RBC 3.59 L MCV 79.5 L MCHC 31.2 L RDW 19.0 H MPV 8.9 Neutrophils % 75.7 Lymphocytes % 10.1 Monocytes % 11.1 H Eosinophils % 2.6 Basophils % 0.5 - Medications Given in the ED: ED Medications Discontinued Medications Generic Name Dose Route Start Last Admin Trade Name Freq PRN Reason Stop Dose Admin Aspirin 162 mg 11/18/16 19:24 11/18/16 19:33 Asa - PO 11/18/16 19:25 162 mg ONCE ONE Administration Furosemide 40 mg 11/18/16 18:29 11/18/16 18:49 Lasix Injection - IVPUSH 11/18/16 18:30 40 mg ONCE ONE Administration <Marilin Lanier - Last Filed: 11/20/16 01:08> Medical Decision Making - Critical Care Time Total Critical Care Time (minutes): 60 Critical Care Statement: The care of this patient involved high complexity decision making to prevent further life threatening deterioration of the patient 's condition and/or to evalute & treat vital organ system(s) failure or risk of failure. - Medical Decision Making 11/18/16 18:25 A portion of this note was documented by scribe services under my direction. I have reviewed the details of the note, within reason, and agree with the documentation with the following case summary and management plan written by me. Nursing documentation reviewed and incorporated into medical decision making 75 yo M h/o CHF, HTN presenting to the ER with a complaint of hypoxia and respiratory distress No fevers No chills No chest pain Pt has been compliant with his medication 11/18/16 19:17 CXR: cardiomegaly, fluid overloading No consolidation seen Will place on BiPAP Will give Lasix 40mg IV Laboratory Tests 11/11/16 11/18/16 11/18/16 05:48 18:10 18:10 WBC 8.4 Hgb 8.9 L Hct 28.5 L Plt Count 245 D Lymphocytes % 10.1 Monocytes % 11.1 H Sodium 141 138 Potassium 3.8 5.4 H D Chloride 98 100 Carbon Dioxide 38 H 30 D Anion Gap 5 L BUN 38 H 62 H D Creatinine 1.9 H 3.0 H D Random Glucose 182 H 172 H Lactic Acid Creatine Kinase 51 Troponin I 3.29 H* D B-Natriuretic Peptide 11/18/16 11/18/16 18:10 18:10 WBC Hgb Hct Plt Count Lymphocytes % Monocytes % Sodium Potassium Chloride Carbon Dioxide Anion Gap BUN Creatinine Random Glucose Lactic Acid 0.598 Creatine Kinase Troponin I B-Natriuretic Peptide 04718.57 H 11/18/16 19:[address] Divya Lamas (+) CPK nml Will give aspirin 11/18/16 19:[address] Elizabeth Case reviewed with Dr. Cruz Will attempt to put in the ICU given borderline blood pressure Clinical impression: CHF, NSTEMI, Renal Insufficiency <Roxanne Grubbs - Last Filed: 11/19/16 17:12> - Medical Decision Making 11/20/16 01:07 Pt had a seizure in the ER, seen by the family, minimal jerking followed by AMS ; pt was loaded with keppra in the ER. I sent himf for head CT which had no gross findings. Pt was upgraded to ICU; his PMD is aware. <Marilin Lanier - Last Filed: 11/20/16 01:08> *DC/Admit/Observation/Transfer - Attestations Scribe Attestion: 11/18/16 19:08 Documentation prepared by Sangeeta Gallagher, acting as clinical laboratory medical director for Roxanne Grubbs MD. <Sangeeta Gallagher - Last Filed: 11/18/16 18:58> - Discharge Dispostion Admit: Yes <Roxanne Grubbs - Last Filed: 11/19/16 17:12> - Discharge Dispostion Admit: Yes <Marilin Lanier - Last Filed: 11/20/16 01:08> Diagnosis at time of Disposition: Atrial flutter, Acute on chronic renal failure, Difficulty breathing, Seizure, Hypoxia, Hypotension CHF exacerbation Qualifiers: Congestive heart failure type: unspecified congestive heart failure type Qualified Code(s): I50.9 - Heart failure, unspecified - Discharge Dispostion Condition at time of disposition: Stable - Referrals
[2016-11-18] MEDS ORDERED: FUROSEMIDE 40 MG/4 ML INJECTABLE VIAL IVPUSH ONE (18:29)
[2016-11-18 18:48] LABS: INR 1.22 (0.82-1.09); PROTHROMBIN TIME (PATIENT) 13.5 SEC (9.98-11.88)
[2016-11-18 18:49] LABS: ALBUMIN 2.6 g/dl (3.4-5.0); BILIRUBIN,TOTAL 0.3 mg/dL (0.2-1.0); COCKROFT - GAULT 26.81; TOT PROT 6.6 g/dl (6.4-8.2)
[2016-11-18 18:50] LABS: ACTIVATED PTT 33.1 SECONDS (26.9-34.4)
[2016-11-18 18:55] LABS: URINE APPEARANCE CLEAR; URINE BILIRUBIN NEGATIVE (NEGATIVE); URINE BLOOD NEGATIVE (NEGATIVE); URINE COLOR YELLOW; URINE GLUCOSE (UA) 1+ (NEGATIVE); URINE KETONE NEGATIVE (NEGATIVE); URINE LEUK ESTERASE NEGATIVE (NEGATIVE); URINE NITRITE NEGATIVE (NEGATIVE); URINE UROBILINOGEN NEGATIVE E.U./dl (0.2-1.0)
[2016-11-18 18:58] LABS: URINE PROTEIN 2+ (NEGATIVE)
[2016-11-18 19:01] LABS: URINE HYALINE CAST 6 /lpf; URINE MUCUS RARE; URINE RBC 1 /hpf (0-3); URINE WBC 1 /hpf (3-5)
[2016-11-18 19:07] LABS: TROPONIN I 3.29 ng/ml (0.00-0.05)
[2016-11-18] MEDS ORDERED: ASPIRIN 81 MG CHEWABLE TABLETS PO ONE (19:24)
[2016-11-18] MEDS ORDERED: ASPIRIN 81 MG CHEWABLE TABLETS ONE (19:30)
[2016-11-18] MEDS ORDERED: oxyCODONE HCL 5 MG TABLET PO PRN (20:03)
[2016-11-18] MEDS ORDERED: levETIRAcetam 500 MG/5 ML INJECTION VIAL IVPB ONE ×2 (20:56→21:01)
[2016-11-18] MEDS ORDERED: LORAZEPAM CARPU-JECT 2 MG/ML DISP.SYRIN ONE (21:01)
[2016-11-18] MEDS ORDERED: FUROSEMIDE 40 MG/4 ML INJECTABLE VIAL ONE (21:13)
[2016-11-18 21:21] LABS: ARTERIAL BLOOD GAS BASE EXCESS 3.4 meq/l (-2-2); ARTERIAL BLOOD GAS HCO3 29.6 meq/L (22-26); ARTERIAL BLOOD GAS PO2 76.4 mmHg (70-100); ARTERIAL BLOOD GAS pH 7.33 (7.35-7.45)
[2016-11-18 21:23] LABS: ALLENS TEST POSITIVE; ART PUNCT SITE LEFT RADIAL; LPM/O2% 60%; MECH. VENT. BIPAP; METHEMOGLOBIN 0.5 % (0.4-1.5); PT. ON O2? YES; TYPE OF O2 BIPAP
[2016-11-18 21:24] LABS: VENT RATE 14
[2016-11-18] MEDS: INSULIN SLIDING SCALE (NOVOLOG) 1 VIAL SQ SCH (22:01)
[2016-11-18] MEDS ORDERED: LORAZEPAM CARPU-JECT 2 MG/ML DISP.SYRIN IVPUSH ONE (22:31)
[2016-11-18] MEDS ORDERED: FUROSEMIDE 40 MG/4 ML INJECTABLE VIAL IVPB ONE (22:31)
[2016-11-18] MEDS: CARVEDILOL 6.25 MG TABLET (FP) PO SCH (23:22)
[2016-11-18] MEDS: MIRTAZAPINE 15 MG TABLET (FP) PO SCH (23:23)
[2016-11-18] MEDS: TOLNAFTATE 1% CREAM 15 GM TUBE TP SCH (23:23)
[2016-11-18] MEDS: levETIRAcetam 500 MG TABLET (FP) PO SCH (23:23)
[2016-11-18] MEDS: FERROUS SO4 325 MG TABLET (FP) PO SCH (23:23)
[2016-11-18] MEDS: RANITIDINE HCL 150 MG TABLET (FP) PO SCH (23:23)
[2016-11-18] MEDS: ATORVASTATIN CA 10 MG TABLET (FP) PO SCH (23:24)
[2016-11-18] MEDS: GABAPENTIN 300 MG CAPSULE (FP) PO SCH (23:24)
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
[2016-11-19] MEDS: ALBUTEROL SO4 2.5/IPRATROPIUM 0.5 INH SOL 3 ML VIAL.NEB. NEB SCH ×5 (01:12→23:02)
[2016-11-19 01:34] LABS: BASOPHIL 0.6 % (0-2.0); EOSINOPHIL 4.2 % (0-4.5); MCH 24.7 pg (25.7-33.7); MCHC 31.4 g/dl (32.0-35.9); MEAN CELL VOLUME 78.7 fl (80-96); MEAN PLT VOLUME 8.8 fl (7.5-11.1); NEUTROPHILS 69.7 % (42.8-82.8); PLATELET COUNT 241 K/MM3 (134-434); RDW 19.2 % (11.9-15.9)
[2016-11-19 01:44] LABS: ARTERIAL BLD GAS O2 SATURATION 96.3 % (90-98.9); ARTERIAL BLOOD GAS BASE EXCESS 4.5 meq/l (-2-2); ARTERIAL BLOOD GAS HCO3 31.3 meq/L (22-26); ARTERIAL BLOOD GAS PO2 88.2 mmHg (70-100); ARTERIAL BLOOD GAS pH 7.34 (7.35-7.45)
[2016-11-19 01:45] LABS: ALLENS TEST POSITIVE; ART PUNCT SITE RIGHT RADIAL; LPM/O2% 60%; MECH. VENT. BIPAP; PT. ON O2? YES; TYPE OF O2 BIPAP; VENT RATE 14
[2016-11-19 01:56] LABS: ALBUMIN 2.4 g/dl (3.4-5.0); BILIRUBIN,TOTAL 0.3 mg/dL (0.2-1.0); CALCIUM 7.4 mg/dL (8.5-10.1); COCKROFT - GAULT 28.73; CREATININE 2.8 mg/dL (0.7-1.3); TOT PROT 6.3 g/dl (6.4-8.2)
[2016-11-19 02:39] LABS: TROPONIN I 3.53 ng/ml (0.00-0.05)
[2016-11-19] MEDS ORDERED: DEXTROSE 50%-WATER 50 ML DISP.SYRIN ONE (03:26)
[2016-11-19] MEDS ORDERED: DEXTROSE 50%-WATER 50 ML VIAL IVPUSH ONE (03:37)
[2016-11-19] MEDS ORDERED: DEXTROSE 5%-WATER - 1,000 ML IV SCH (03:45)
[2016-11-19] MEDS: INSULIN SLIDING SCALE (NOVOLOG) 1 VIAL SQ SCH ×4 (06:37→21:32)
--- NOTE | 2016-11-19 07:26 | PN ---
Progress Note, Physician Chief Complaint: Coverage for Gisela, recently discharged. Patient is currently in ICU, on BiPAP and cannot provide history thus it was primarily obtained through ER chart review: "Patient is a 75 year old male, from [facility], with significant medical hx of dementia, CVA w/ right sided weakness, AFib, DM, CKD, COPD (s/p intubation 2005), CHF, HTN, HLD, and [place] s/p stents who is presenting to the ED in respiratory distress since last night. Per family, the patient has been dyspneic that worsens when the patient lies flat; he was also noted to have an O2Sat of 78%. Family also report the patient has been coughing a lot and was witnessed foaming at the mouth last night. Family member endorses the patient has had decreased urinary output despite taking in fluids. Today the patient appeared confused and was reportedly hallucinating." A head CT was negative for acute pathology. CXR showed increased PVC with elevated TnI and negative CK. Overnight he was found to be hypothermic and was cultured. Tele has shown a paced rhythm w/ underlying AF. History of Present Illness: PMH: AF CKD Seizures CAD Chronic systolic CHF, moderate LV dysfxn ALL: NKDA - Current Medication List Current Medications: Active Medications Acetaminophen (Tylenol -) 650 mg PO Q6H PRN PRN Reason: PAIN Albuterol/Ipratropium (Duoneb -) 1 amp NEB QIDR [facility] Last Admin: 11/19/16 06:28 Dose: 1 amp Aspirin (Ecotrin -) 81 mg PO DAILY [facility] Atorvastatin Calcium (Lipitor -) 10 mg PO HS [facility] Last Admin: 11/18/16 23:24 Dose: Not Given Carvedilol (Coreg -) 12.5 mg PO BID [facility] Last Admin: 11/18/16 23:22 Dose: Not Given Clopidogrel Bisulfate (Plavix -) 75 mg PO DAILY [facility] Docusate Sodium (Colace -) 100 mg PO DAILY [facility] Donepezil HCl (Aricept -) 5 mg PO DAILY [facility] Ergocalciferol (Drisdol -) 50,000 unit PO Q7D@1000 [facility] Ferrous Sulfate (Feosol -) 325 mg PO BID [facility] Last Admin: 11/18/16 23:23 Dose: Not Given Finasteride (Proscar -) 5 mg PO DAILY [facility] Furosemide (Lasix Injection -) 40 mg IVPB DAILY [facility] Gabapentin (Neurontin -) 300 mg PO BID [facility] Last Admin: 11/18/16 23:24 Dose: Not Given Dextrose (D5w -) 1,000 mls @ 25 mls/hr IV ASDIR [facility] Last Admin: 11/19/16 03:45 Dose: 25 mls/hr Insulin Aspart (Novolog Vial Sliding Scale -) 0 vial SQ ACHS [facility] PRN Reason: Protocol Last Admin: 11/19/16 06:37 Dose: Not Given Isosorbide Mononitrate (Imdur -) 30 mg PO DAILY [facility] Levetiracetam (Keppra -) 1,000 mg PO BID [facility] Last Admin: 11/18/16 23:23 Dose: Not Given Lisinopril (Prinivil) 10 mg PO DAILY [facility] Mirtazapine (Remeron -) 15 mg PO HS [facility] Last Admin: 11/18/16 23:23 Dose: Not Given Nifedipine (Procardia Xl -) 60 mg PO DAILY [facility] Non-Formulary Medication (Insulin Degludec [Tresiba Flextouch U-100]) 42 unit SQ DAILY [facility] Non-Formulary Medication (Lidocaine [Aspercreme]) 1 each TP DAILY [facility] Oxycodone HCl (Roxicodone -) 10 mg PO Q6H PRN PRN Reason: PAIN Pantoprazole Sodium (Protonix -) 40 mg PO DAILY [facility] Potassium Chloride (K-Dur -) 10 meq PO DAILY [facility] Ranitidine HCl (Zantac -) 150 mg PO BID [facility] Last Admin: 11/18/16 23:23 Dose: Not Given Spironolactone (Aldactone -) 25 mg PO DAILY [facility] Tamsulosin HCl (Flomax -) 0.4 mg PO DAILY [facility] Tolnaftate (Tinactin 1% Cream -) 1 applic TP BID [facility] Last Admin: 11/18/16 23:23 Dose: Not Given - Objective Vital Signs: Vital Signs Temperature 96.5 F L 11/18/16 23:45 Pulse Rate 61 11/19/16 02:00 Respiratory Rate 21 11/19/16 02:00 Blood Pressure 129/65 11/19/16 02:00 O2 Sat by Pulse Oximetry (%) 98 11/19/16 06:28 Constitutional: Yes: Other (lethargic on BiPAP) Eyes: Yes: Conjunctiva Clear Cardiovascular: Yes: Regular Rate and Rhythm (paced, no murmurs) Respiratory: Yes: Other (decreased breath sounds at bases, b/l rales. Rhonchi. No active wheezing) Gastrointestinal: Yes: Soft (non-tender) Edema: Yes Edema: LLE: 1+, RLE: 1+ Labs: CBC, BMP 11/19/16 00:30 11/19/16 00:30 INR, PTT INR 1.22 (0.82-1.09) H 11/18/16 18:10 Microbiology Laboratory Tests 11/18/16 11/18/16 11/18/16 18:10 18:10 18:28 WBC Hgb Plt Count ABG pH ABG pCO2 at Pt Temp ABG pO2 at Pt Temp O2 Delivery Device Oxygen Flow Rate Sodium Potassium BUN Creatinine Lactic Acid Creatine Kinase 51 Troponin I 3.29 H* D B-Natriuretic Peptide 37610.57 H Urine Color Yellow Urine Appearance Clear Urine pH 5.0 D Urine Glucose (UA) 1+ H Urine Ketones Negative Urine Blood Negative Urine Nitrite Negative Urine Bilirubin Negative Urine Urobilinogen Negative Ur Leukocyte Esterase Negative 11/18/16 11/19/16 11/19/16 23:20 00:30 00:30 WBC 7.0 Hgb 8.7 L Plt Count 241 ABG pH ABG pCO2 at Pt Temp ABG pO2 at Pt Temp O2 Delivery Device Oxygen Flow Rate Sodium 141 Potassium 4.4 BUN 61 H Creatinine 2.8 H Lactic Acid 0.701 Creatine Kinase 42 Troponin I 3.53 H* B-Natriuretic Peptide Urine Color Urine Appearance Urine pH Urine Glucose (UA) Urine Ketones Urine Blood Urine Nitrite Urine Bilirubin Urine Urobilinogen Ur Leukocyte Esterase 11/19/16 11/19/16 01:30 05:10 WBC Hgb Plt Count ABG pH 7.34 L ABG pCO2 at Pt Temp 60.1 H* ABG pO2 at Pt Temp 88.2 O2 Delivery Device Bipap Oxygen Flow Rate 60% Sodium Potassium BUN Creatinine Lactic Acid Creatine Kinase Troponin I B-Natriuretic Peptide 28080.37 H Urine Color Urine Appearance Urine pH Urine Glucose (UA) Urine Ketones Urine Blood Urine Nitrite Urine Bilirubin Urine Urobilinogen Ur Leukocyte Esterase - ....Imaging EKG: Image Reviewed Assessment/Plan IMP: Acute on chronic systolic CHF CAD AF s/p PPM Acute on chronic renal failure Hypothermia REC: 1. CHF: -History moderate LV dysfx, most recent echo w/ nl EF -Continue IV Lasix; please increase to BID -Bipap -Cycle enzymes to complete 3 sets -suspect elevated TnI w/ Nl CK due to decompensated CHF in setting CKD -Repeat echo -Cont Coreg and home meds -Daily lytes 2. CAD: -on ASA and Plavix -Suspect TnI elevated due to CHF -Repeat echo -statin 3. AF: -s/p PPM -Not on full AC for unclear reasons (?seizures and falls risk?). On dual antiplatelet therapy for CAD -Will need to clarify details with Dr. Higgins 4. Acute on chronic RF: -Probably due to decompensated CHF -Creat may improve with diuresis 5. Hypothermia: -follow cultures -Check TSH -Abx deferred to ICU team Anthony Higgins
--- NOTE | 2016-11-19 08:34 | PN ---
Progress Note (short form) - Note Progress Note: PULM/CCM Pt seen and examined in the ICU 24Hr: admitted overnight on NIVPPV work of breathing improving lasix increased for negative fluid balance, pulm edema on CXR culture sent S: no acute complaints Vital Signs Temp 94 F L 11/19/16 06:00 Pulse 60 11/19/16 06:00 Resp 14 11/19/16 06:00 BP 130/65 11/19/16 06:00 Pulse Ox 98 11/19/16 06:28 Intake & Output 11/18/16 11/18/16 11/19/16 11:59 23:59 11:59 Intake Total 60 Output Total 500 1200 Balance -500 -1140 Weight 84.232 kg 84.55 kg Intake: IV 60 D5w - 1,000 ml @ 25 mls/ 60 hr IV ASDIR [facility] Rx#: [id number] Output: Urine 500 1200 Metcalf 500 1200 Other: Voiding Method Indwelling Catheter Indwelling Catheter Bowel Movement No Height 5 ft 7 in Body Mass Index (BMI) 29.0 Weight Measurement Method [facility] Method Est/Stated by Patient Active Medications Acetaminophen (Tylenol -) 650 mg PO Q6H PRN PRN Reason: PAIN Albuterol/Ipratropium (Duoneb -) 1 amp NEB QIDR [facility] Last Admin: 11/19/16 06:28 Dose: 1 amp Aspirin (Ecotrin -) 81 mg PO DAILY [facility] Atorvastatin Calcium (Lipitor -) 10 mg PO HS [facility] Last Admin: 11/18/16 23:24 Dose: Not Given Carvedilol (Coreg -) 12.5 mg PO BID [facility] Last Admin: 11/18/16 23:22 Dose: Not Given Clopidogrel Bisulfate (Plavix -) 75 mg PO DAILY [facility] Docusate Sodium (Colace -) 100 mg PO DAILY [facility] Donepezil HCl (Aricept -) 5 mg PO DAILY [facility] Ergocalciferol (Drisdol -) 50,000 unit PO Q7D@1000 [facility] Ferrous Sulfate (Feosol -) 325 mg PO BID [facility] Last Admin: 11/18/16 23:23 Dose: Not Given Finasteride (Proscar -) 5 mg PO DAILY [facility] Furosemide (Lasix Injection -) 40 mg IVPB BID@0600,1400 [facility] Gabapentin (Neurontin -) 300 mg PO BID [facility] Last Admin: 04/21/17 23:24 Dose: Not Given Insulin Aspart (Novolog Vial Sliding Scale -) 0 vial SQ ACHS [facility] PRN Reason: Protocol Last Admin: 11/19/16 06:37 Dose: Not Given Isosorbide Mononitrate (Imdur -) 30 mg PO DAILY [facility] Levetiracetam (Keppra -) 1,000 mg PO BID [facility] Last Admin: 11/18/16 23:23 Dose: Not Given Lisinopril (Prinivil) 10 mg PO DAILY [facility] Mirtazapine (Remeron -) 15 mg PO HS [facility] Last Admin: 11/18/16 23:23 Dose: Not Given Nifedipine (Procardia Xl -) 60 mg PO DAILY [facility] Non-Formulary Medication (Insulin Degludec [Tresiba Flextouch U-100]) 42 unit SQ DAILY [facility] Non-Formulary Medication (Lidocaine [Aspercreme]) 1 each TP DAILY [facility] Oxycodone HCl (Roxicodone -) 10 mg PO Q6H PRN PRN Reason: PAIN Pantoprazole Sodium (Protonix -) 40 mg PO DAILY [facility] Potassium Chloride (K-Dur -) 10 meq PO DAILY [facility] Ranitidine HCl (Zantac -) 150 mg PO BID [facility] Last Admin: 11/18/16 23:23 Dose: Not Given Spironolactone (Aldactone -) 25 mg PO DAILY [facility] Tamsulosin HCl (Flomax -) 0.4 mg PO DAILY [facility] Tolnaftate (Tinactin 1% Cream -) 1 applic TP BID [facility] Last Admin: 11/18/16 23:23 Dose: Not Given CBC, BMP 11/19/16 00:30 11/19/16 00:30 Constitutional: Yes: Well Nourished, No Distress, Calm Eyes: Yes: Other (Rt prothetic eye; L pupil responsive to light) HENT: Yes: WNL Neck: Yes: WNL, Supple Cardiovascular: Yes: Regular Rate and Rhythm, Other (paced at 60) Respiratory: Yes: On BiPap, clear anterior Gastrointestinal: Yes: WNL, Normal Bowel Sounds, Soft Renal/: Yes: Metcalf Present Extremities: Yes: Other (Warm, + pulse) Edema: LLE: Trace, RLE: Trace Peripheral Pulses WNL: Yes Integumentary: Yes: WNL Neurological: Yes: Oriented, follows simple commands Psychiatric: Yes: Alert, Oriented CXR: bilateral pulm edema, no focal infiltrate [age] [place] resident with PMHx dementia, CVA with rt sided weakness, A-fib w/ pacemaker, DMII, CKD, COPD, HTN, CHF, HLD, Epilepsy and [place] s/p stents who was brought in to the ED after 2 days of cough, respiratory distress and AMS m/l in the setting of CHF exacerbation. Ccb NSTEMI, acute on chronic YONG, ongoing seizures Pulm: Hypoxic respiratory insufficiency in the setting of CHF exacerbation -BiPAP support for O2 sat>92% -Albuterol/Atroventnebs -Lasix diuresis for goal 1-2L net neg -viral and sputum culture to r/o infectious process -holding of on abx as no sick prodrome or clear infilatrate -Aspiration precaution -BLE dopplers CV: NSTEMI, CHF exacerbation -Consult primary research computing specialist -Diuresis -Trend troponin q8 and ECG -Repeat TTE -Trend BNP -Cont dual antiplt and statin -no systemic anticoagulation given sz hx risk of fall -Cont antihypertensive and vasodilators Renal: Acute on chronic YONG -Monitor BMP and UOP -Diuresis, increase lasix to bid -Replete electrolytes Neuro: AMS improving; Hx seizures -Consult primary neurologis -Cont Keppra -Check keppra level ID -f/u cultures Proph -PPI/Hep SQ Code status: per RN Report DNI but not DNR??, awaiting paperwork from [place] Kyle Max ACNP [id number] Critical care time spent in reviewing chart, evaluating patient and formulating plan 35 min Problem List - Problems (1) Acute on chronic renal failure Code(s): N17.9 - ACUTE KIDNEY FAILURE, UNSPECIFIED N18.9 - CHRONIC KIDNEY DISEASE, UNSPECIFIED (2) Altered mental status Code(s): R41.82 - ALTERED MENTAL STATUS, UNSPECIFIED Qualifiers: Altered mental status type: disorientation Qualified Code(s): R41.0 - Disorientation, unspecified (3) CHF exacerbation Code(s): I50.9 - HEART FAILURE, UNSPECIFIED Qualifiers: Congestive heart failure type: unspecified congestive heart failure type Qualified Code(s): I50.9 - Heart failure, unspecified (4) Chronic systolic CHF (congestive heart failure) Code(s): I50.22 - CHRONIC SYSTOLIC (CONGESTIVE) HEART FAILURE
[2016-11-19] MEDS ORDERED: FUROSEMIDE 40 MG/4 ML INJECTABLE VIAL ONE (08:46)
[2016-11-19] MEDS: FUROSEMIDE 40 MG/4 ML INJECTABLE VIAL IVPB SCH ×2 (08:48→15:36)
[2016-11-19 09:48] VITALS: BMI 29.2
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
--- NOTE | 2016-11-19 09:59 | EKG ---
Test Reason : Blood Pressure : / mmHG Vent. Rate : 060 BPM Atrial Rate : 089 BPM P-R Int : 000 ms QRS Dur : 178 ms QT Int : 494 ms P-R-T Axes : 000 -67 100 degrees QTc Int : 494 ms POOR DATA QUALITY, INTERPRETATION MAY BE ADVERSELY AFFECTED Ventricular-paced rhythm underlying atrial fibrillation Confirmed by ERMA ANDREWS MD ([id number]) on 11/19/2016 9:58:46 AM Referred By: Confirmed By:ERMA ANDREWS MD
[2016-11-19] MEDS ORDERED: PATIENT'S OWN MEDICATION (NON-FORMULARY) (Lidocaine [Aspercreme] 1 EACH) TP SCH (10:00)
[2016-11-19] MEDS ORDERED: POTASSIUM CHLORIDE TABS 10 MEQ TABLET.ER (FP) PO SCH (10:00)
[2016-11-19] MEDS ORDERED: FUROSEMIDE 40 MG/4 ML INJECTABLE VIAL IVPB SCH (10:00)
[2016-11-19 10:15] LABS: BASOPHIL 0.4 % (0-2.0); EOSINOPHIL 2.6 % (0-4.5); MCH 24.7 pg (25.7-33.7); MEAN CELL VOLUME 79.6 fl (80-96); MEAN PLT VOLUME 8.8 fl (7.5-11.1); NEUTROPHILS 81.9 % (42.8-82.8); PLATELET COUNT 198 K/MM3 (134-434); RDW 19.1 % (11.9-15.9)
[2016-11-19] MEDS: DOCUSATE SODIUM 100 MG CAPSULE (FP) PO SCH (10:58)
[2016-11-19] MEDS: SPIRONOLACTONE 25 MG TABLET (FP) PO SCH (10:58)
[2016-11-19] MEDS: DONEPEZIL HCL 10 MG TABLET (FP) PO SCH (10:58)
[2016-11-19] MEDS: levETIRAcetam 500 MG TABLET (FP) PO SCH ×2 (10:59→21:26)
[2016-11-19] MEDS: CARVEDILOL 6.25 MG TABLET (FP) PO SCH ×2 (10:59→21:26)
[2016-11-19] MEDS: TAMSULOSIN HCL 0.4 MG CAP.ER.24H (FP) PO SCH (10:59)
[2016-11-19] MEDS: ASPIRIN COATED 81 MG TABLET.EC PO SCH (10:59)
[2016-11-19] MEDS: FERROUS SO4 325 MG TABLET (FP) PO SCH ×2 (10:59→21:27)
[2016-11-19] MEDS: ISOSORBIDE MONONITRATE 30 MG TAB.SR.24H (FP) PO SCH (10:59)
[2016-11-19] MEDS: LISINOPRIL 10 MG TABLET (FP) PO SCH (11:00)
[2016-11-19] MEDS: CLOPIDOGREL BISULFATE 75 MG TABLET (FP) PO SCH (11:00)
[2016-11-19] MEDS: PANTOPRAZOLE 40 MG TABLET (FP) PO SCH (11:00)
[2016-11-19] MEDS: GABAPENTIN 300 MG CAPSULE (FP) PO SCH ×2 (11:00→21:26)
[2016-11-19] MEDS: NIFEdipine E.R. 30 MG TABLET (FP) PO SCH (11:00)
[2016-11-19] MEDS: RANITIDINE HCL 150 MG TABLET (FP) PO SCH ×2 (11:01→21:26)
[2016-11-19 11:24] LABS: ALBUMIN 2.3 g/dl (3.4-5.0); BILIRUBIN,TOTAL 0.3 mg/dL (0.2-1.0); CALCIUM 7.7 mg/dL (8.5-10.1); COCKROFT - GAULT 29.1; CREATININE 2.7 mg/dL (0.7-1.3); TOT PROT 5.9 g/dl (6.4-8.2)
[2016-11-19 11:45] LABS: TROPONIN I 3.39 ng/ml (0.00-0.05)
[2016-11-19] MEDS: ACETAMINOPHEN 325 MG TABLET (FP) PO PRN ×2 (13:15→21:53)
[2016-11-19 14:54] LABS: TROPONIN I 2.33 ng/ml (0.00-0.05)
[2016-11-19] MEDS: TOLNAFTATE 1% CREAM 15 GM TUBE TP SCH ×2 (15:47→21:26)
[2016-11-19] MEDS: FINASTERIDE 5 MG TABLET (FP) PO SCH (15:48)
[2016-11-19 16:29] LABS: URINE CREATININE 66.3 mg/dL
[2016-11-19] MEDS: MIRTAZAPINE 15 MG TABLET (FP) PO SCH (21:26)
[2016-11-19] MEDS: ATORVASTATIN CA 10 MG TABLET (FP) PO SCH (21:26)
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
[2016-11-20] MEDS: ALBUTEROL SO4 2.5/IPRATROPIUM 0.5 INH SOL 3 ML VIAL.NEB. NEB SCH ×3 (05:19→17:48)
[2016-11-20] MEDS: FUROSEMIDE 40 MG/4 ML INJECTABLE VIAL IVPB SCH ×2 (05:58→13:16)
[2016-11-20] MEDS: INSULIN SLIDING SCALE (NOVOLOG) 1 VIAL SQ SCH ×4 (06:24→22:00)
--- NOTE | 2016-11-20 08:32 | PN ---
Progress Note, Physician Chief Complaint: more comfortable Down 5 lbs History of Present Illness: TELE: no sig V- arrhythmias - Current Medication List Current Medications: Active Medications Acetaminophen (Tylenol -) 650 mg PO Q6H PRN PRN Reason: PAIN Last Admin: 11/19/16 21:53 Dose: 650 mg Albuterol/Ipratropium (Duoneb -) 1 amp NEB QIDR [facility] Last Admin: 11/20/16 05:19 Dose: 1 amp Aspirin (Ecotrin -) 81 mg PO DAILY [facility] Last Admin: 11/19/16 10:59 Dose: 81 mg Atorvastatin Calcium (Lipitor -) 10 mg PO HS [facility] Last Admin: 11/19/16 21:26 Dose: 10 mg Carvedilol (Coreg -) 12.5 mg PO BID [facility] Last Admin: 11/19/16 21:26 Dose: 12.5 mg Clopidogrel Bisulfate (Plavix -) 75 mg PO DAILY [facility] Last Admin: 11/19/16 11:00 Dose: 75 mg Docusate Sodium (Colace -) 100 mg PO DAILY [facility] Last Admin: 11/19/16 10:58 Dose: 100 mg Donepezil HCl (Aricept -) 5 mg PO DAILY [facility] Last Admin: 11/19/16 10:58 Dose: 5 mg Ergocalciferol (Drisdol -) 50,000 unit PO Q7D@1000 [facility] Ferrous Sulfate (Feosol -) 325 mg PO BID [facility] Last Admin: 11/19/16 21:27 Dose: 325 mg Finasteride (Proscar -) 5 mg PO DAILY [facility] Last Admin: 11/19/16 15:48 Dose: 5 mg Furosemide (Lasix Injection -) 40 mg IVPB BID@0600,1400 [facility] Last Admin: 11/20/16 05:58 Dose: 40 mg Gabapentin (Neurontin -) 300 mg PO BID [facility] Last Admin: 11/19/16 21:26 Dose: 300 mg Insulin Aspart (Novolog Vial Sliding Scale -) 0 vial SQ ACHS [facility] PRN Reason: Protocol Last Admin: 11/20/16 06:24 Dose: Not Given Isosorbide Mononitrate (Imdur -) 30 mg PO DAILY [facility] Last Admin: 11/19/16 10:59 Dose: 30 mg Levetiracetam (Keppra -) 1,000 mg PO BID [facility] Last Admin: 11/19/16 21:26 Dose: 1,000 mg Lisinopril (Prinivil) 10 mg PO DAILY [facility] Last Admin: 11/19/16 11:00 Dose: 10 mg Mirtazapine (Remeron -) 15 mg PO HS [facility] Last Admin: 11/19/16 21:26 Dose: 15 mg Nifedipine (Procardia Xl -) 60 mg PO DAILY [facility] Last Admin: 11/19/16 11:00 Dose: 60 mg Non-Formulary Medication (Insulin Degludec [Tresiba Flextouch U-100]) 42 unit SQ DAILY [facility] Non-Formulary Medication (Lidocaine [Aspercreme]) 1 each TP DAILY [facility] Oxycodone HCl (Roxicodone -) 10 mg PO Q6H PRN PRN Reason: PAIN Pantoprazole Sodium (Protonix -) 40 mg PO DAILY [facility] Last Admin: 11/19/16 11:00 Dose: 40 mg Ranitidine HCl (Zantac -) 150 mg PO BID [facility] Last Admin: 11/19/16 21:26 Dose: 150 mg Spironolactone (Aldactone -) 25 mg PO DAILY [facility] Last Admin: 11/19/16 10:58 Dose: 25 mg Tamsulosin HCl (Flomax -) 0.4 mg PO DAILY [facility] Last Admin: 11/19/16 10:59 Dose: 0.4 mg Tolnaftate (Tinactin 1% Cream -) 1 applic TP BID [facility] Last Admin: 11/19/16 21:26 Dose: 1 applic - Objective Vital Signs: Vital Signs Temperature 97.3 F L 11/20/16 08:00 Pulse Rate 68 11/20/16 08:00 Respiratory Rate 19 11/20/16 08:00 Blood Pressure 122/59 11/20/16 08:00 O2 Sat by Pulse Oximetry (%) 94 L 11/20/16 08:15 Constitutional: Yes: No Distress Cardiovascular: Yes: Regular Rate and Rhythm Respiratory: Yes: Other (rales at bases but improved from yesterday) Gastrointestinal: Yes: Soft Edema: Yes Edema: LLE: 1+, RLE: 1+ Neurological: Yes: Alert Labs: CBC, BMP 11/19/16 10:00 11/19/16 10:00 INR, PTT INR 1.22 (0.82-1.09) H 11/18/16 18:10 - ....Imaging EKG: Image Reviewed Assessment/Plan IMP: Acute on chronic systolic CHF CAD AF s/p PPM Acute on chronic renal failure Hypothermia REC: 1. CHF: -History moderate LV dysfx -Continue IV Lasix -Bipap as needed -suspect elevated TnI w/ Nl CK due to decompensated CHF in setting CKD -Repeat echo tomorrow -Cont Coreg and home meds -Daily lytes 2. CAD: -on ASA and Plavix -Suspect TnI elevated due to CHF -Repeat echo -statin 3. AF: -s/p PPM -Not on full AC for unclear reasons (?seizures and falls risk?). On dual antiplatelet therapy for CAD -Will need to clarify details with Dr. Higgins 4. Acute on chronic RF: -Probably due to decompensated CHF -Creat may improve with diuresis, awaiting today's labs 5. Hypothermia: -cultures negative so far -Check TSH -Abx deferred to ICU team Anthony Higgins
--- NOTE | 2016-11-20 09:03 | PN ---
Progress Note, Physician History of Present Illness: Renal f/u Pt appears improved- he is in no distress He is more alert and responsive Able to follow commands Renal US no hydronephrosis Urine for Pro/Cr ratio is in the non glomerular range BC negative to date and UC pending - Current Medication List Current Medications: Active Medications Acetaminophen (Tylenol -) 650 mg PO Q6H PRN PRN Reason: PAIN Last Admin: 11/19/16 21:53 Dose: 650 mg Albuterol/Ipratropium (Duoneb -) 1 amp NEB QIDR [facility] Last Admin: 11/20/16 05:19 Dose: 1 amp Aspirin (Ecotrin -) 81 mg PO DAILY [facility] Last Admin: 11/19/16 10:59 Dose: 81 mg Atorvastatin Calcium (Lipitor -) 10 mg PO HS [facility] Last Admin: 11/19/16 21:26 Dose: 10 mg Carvedilol (Coreg -) 12.5 mg PO BID [facility] Last Admin: 11/19/16 21:26 Dose: 12.5 mg Clopidogrel Bisulfate (Plavix -) 75 mg PO DAILY [facility] Last Admin: 11/19/16 11:00 Dose: 75 mg Docusate Sodium (Colace -) 100 mg PO DAILY [facility] Last Admin: 11/19/16 10:58 Dose: 100 mg Donepezil HCl (Aricept -) 5 mg PO DAILY [facility] Last Admin: 11/19/16 10:58 Dose: 5 mg Ergocalciferol (Drisdol -) 50,000 unit PO Q7D@1000 [facility] Ferrous Sulfate (Feosol -) 325 mg PO BID [facility] Last Admin: 11/19/16 21:27 Dose: 325 mg Finasteride (Proscar -) 5 mg PO DAILY [facility] Last Admin: 11/19/16 15:48 Dose: 5 mg Furosemide (Lasix Injection -) 40 mg IVPB BID@0600,1400 [facility] Last Admin: 11/20/16 05:58 Dose: 40 mg Gabapentin (Neurontin -) 300 mg PO BID [facility] Last Admin: 11/19/16 21:26 Dose: 300 mg Insulin Aspart (Novolog Vial Sliding Scale -) 0 vial SQ ACHS [facility] PRN Reason: Protocol Last Admin: 11/20/16 06:24 Dose: Not Given Isosorbide Mononitrate (Imdur -) 30 mg PO DAILY [facility] Last Admin: 11/19/16 10:59 Dose: 30 mg Levetiracetam (Keppra -) 1,000 mg PO BID [facility] Last Admin: 11/19/16 21:26 Dose: 1,000 mg Lisinopril (Prinivil) 10 mg PO DAILY [facility] Last Admin: 11/19/16 11:00 Dose: 10 mg Mirtazapine (Remeron -) 15 mg PO HS [facility] Last Admin: 11/19/16 21:26 Dose: 15 mg Nifedipine (Procardia Xl -) 60 mg PO DAILY [facility] Last Admin: 11/19/16 11:00 Dose: 60 mg Non-Formulary Medication (Insulin Degludec [Tresiba Flextouch U-100]) 42 unit SQ DAILY [facility] Non-Formulary Medication (Lidocaine [Aspercreme]) 1 each TP DAILY [facility] Oxycodone HCl (Roxicodone -) 10 mg PO Q6H PRN PRN Reason: PAIN Pantoprazole Sodium (Protonix -) 40 mg PO DAILY [facility] Last Admin: 11/19/16 11:00 Dose: 40 mg Ranitidine HCl (Zantac -) 150 mg PO BID [facility] Last Admin: 11/19/16 21:26 Dose: 150 mg Spironolactone (Aldactone -) 25 mg PO DAILY [facility] Last Admin: 11/19/16 10:58 Dose: 25 mg Tamsulosin HCl (Flomax -) 0.4 mg PO DAILY [facility] Last Admin: 11/19/16 10:59 Dose: 0.4 mg Tolnaftate (Tinactin 1% Cream -) 1 applic TP BID [facility] Last Admin: 11/19/16 21:26 Dose: 1 applic - Objective Vital Signs: Vital Signs Temperature 97.3 F L 11/20/16 08:00 Pulse Rate 68 11/20/16 08:00 Respiratory Rate 19 11/20/16 08:00 Blood Pressure 122/59 11/20/16 08:00 O2 Sat by Pulse Oximetry (%) 94 L 11/20/16 08:15 Cardiovascular: Yes: S1, S2. No: JVD, Rub Respiratory: Yes: Diminished Gastrointestinal: Yes: Soft. No: Tenderness, Rebound Edema: Yes Edema: LLE: Trace, RLE: Trace Labs: CBC, BMP 11/19/16 10:00 11/19/16 10:00 INR, PTT INR 1.22 (0.82-1.09) H 11/18/16 18:10 Assessment/Plan Impression Acute on CKD with acute worsening from decompensated CHF. Suspect CKD from DM Decompensated HFpEF R/O RI in this pt with multiple risk factors Respiratory insufficiency H/O COPD A Fib with PPM DM S/P Hypothermia SZD Microcytic anemia on Fe Plan Await today's labs Continue with lasix, ACEi and Spironolactone as ordered AC as per primary care and cardiology For Echo Add TSH to next set of labs Dr Mccarthy
[2016-11-20] MEDS ORDERED: PT OWN MED DRAWER 7, Y5N ONE (09:25)
[2016-11-20] MEDS: NIFEdipine E.R. 30 MG TABLET (FP) PO SCH (09:30)
[2016-11-20] MEDS: levETIRAcetam 500 MG TABLET (FP) PO SCH ×2 (09:30→21:51)
[2016-11-20] MEDS: CLOPIDOGREL BISULFATE 75 MG TABLET (FP) PO SCH (09:30)
[2016-11-20] MEDS: RANITIDINE HCL 150 MG TABLET (FP) PO SCH ×2 (09:30→21:51)
[2016-11-20] MEDS: SPIRONOLACTONE 25 MG TABLET (FP) PO SCH (09:31)
[2016-11-20] MEDS: ASPIRIN COATED 81 MG TABLET.EC PO SCH (09:31)
[2016-11-20] MEDS: ISOSORBIDE MONONITRATE 30 MG TAB.SR.24H (FP) PO SCH (09:31)
[2016-11-20] MEDS: DOCUSATE SODIUM 100 MG CAPSULE (FP) PO SCH (09:31)
[2016-11-20] MEDS: TAMSULOSIN HCL 0.4 MG CAP.ER.24H (FP) PO SCH (09:31)
[2016-11-20] MEDS: CARVEDILOL 6.25 MG TABLET (FP) PO SCH ×2 (09:32→21:51)
[2016-11-20] MEDS: FERROUS SO4 325 MG TABLET (FP) PO SCH (09:32)
[2016-11-20] MEDS: PANTOPRAZOLE 40 MG TABLET (FP) PO SCH (09:33)
[2016-11-20] MEDS: LISINOPRIL 10 MG TABLET (FP) PO SCH (09:33)
[2016-11-20] MEDS: GABAPENTIN 300 MG CAPSULE (FP) PO SCH ×2 (09:33→21:51)
[2016-11-20] MEDS: DONEPEZIL HCL 10 MG TABLET (FP) PO SCH (09:33)
[2016-11-20] MEDS: FINASTERIDE 5 MG TABLET (FP) PO SCH (09:34)
[2016-11-20] MEDS: TOLNAFTATE 1% CREAM 15 GM TUBE TP SCH ×2 (09:36→22:00)
[2016-11-20 09:40] LABS: BASOPHIL 0.6 % (0-2.0); EOSINOPHIL 2.5 % (0-4.5); MCH 24.6 pg (25.7-33.7); MCHC 31.4 g/dl (32.0-35.9); MEAN CELL VOLUME 78.6 fl (80-96); MEAN PLT VOLUME 8.5 fl (7.5-11.1); NEUTROPHILS 81.3 % (42.8-82.8); PLATELET COUNT 211 K/MM3 (134-434); RDW 19.8 % (11.9-15.9); WHITE BLOOD COUNT 7.7 K/mm3 (4.0-10.0)
--- NOTE | 2016-11-20 09:52 | PN ---
Progress Note (short form) - Note Progress Note: Seen and examined in ICU Cont NIPPV overnight, currently on NC w/o distress lasix for O>I Denies: CP/SOB/n/v/magana Current Medications Acetaminophen (Tylenol -) 650 mg PO Q6H PRN PRN Reason: PAIN Last Admin: 11/19/16 21:53 Dose: 650 mg Albuterol/Ipratropium (Duoneb -) 1 amp NEB QIDR [facility] Last Admin: 11/20/16 05:19 Dose: 1 amp Aspirin (Ecotrin -) 81 mg PO DAILY [facility] Last Admin: 11/20/16 09:31 Dose: 81 mg Atorvastatin Calcium (Lipitor -) 10 mg PO HS [facility] Last Admin: 11/19/16 21:26 Dose: 10 mg Carvedilol (Coreg -) 12.5 mg PO BID [facility] Last Admin: 11/20/16 09:32 Dose: 12.5 mg Clopidogrel Bisulfate (Plavix -) 75 mg PO DAILY [facility] Last Admin: 11/20/16 09:30 Dose: 75 mg Docusate Sodium (Colace -) 100 mg PO DAILY [facility] Last Admin: 11/20/16 09:31 Dose: 100 mg Donepezil HCl (Aricept -) 5 mg PO DAILY [facility] Last Admin: 11/20/16 09:33 Dose: 5 mg Ergocalciferol (Drisdol -) 50,000 unit PO Q7D@1000 [facility] Ferrous Sulfate (Feosol -) 325 mg PO BID [facility] Last Admin: 11/20/16 09:32 Dose: 325 mg Finasteride (Proscar -) 5 mg PO DAILY [facility] Last Admin: 11/20/16 09:34 Dose: 5 mg Furosemide (Lasix Injection -) 40 mg IVPB BID@0600,1400 [facility] Last Admin: 11/20/16 05:58 Dose: 40 mg Gabapentin (Neurontin -) 300 mg PO BID [facility] Last Admin: 11/20/16 09:33 Dose: 300 mg Insulin Aspart (Novolog Vial Sliding Scale -) 0 vial SQ ACHS [facility] PRN Reason: Protocol Last Admin: 11/20/16 06:24 Dose: Not Given Isosorbide Mononitrate (Imdur -) 30 mg PO DAILY [facility] Last Admin: 11/20/16 09:31 Dose: 30 mg Levetiracetam (Keppra -) 1,000 mg PO BID [facility] Last Admin: 11/20/16 09:30 Dose: 1,000 mg Lisinopril (Prinivil) 10 mg PO DAILY [facility] Last Admin: 11/20/16 09:33 Dose: 10 mg Mirtazapine (Remeron -) 15 mg PO HS [facility] Last Admin: 11/19/16 21:26 Dose: 15 mg Nifedipine (Procardia Xl -) 60 mg PO DAILY [facility] Last Admin: 11/20/16 09:30 Dose: 60 mg Non-Formulary Medication (Insulin Degludec [Tresiba Flextouch U-100]) 42 unit SQ DAILY [facility] Non-Formulary Medication (Lidocaine [Aspercreme]) 1 each TP DAILY [facility] Oxycodone HCl (Roxicodone -) 10 mg PO Q6H PRN PRN Reason: PAIN Pantoprazole Sodium (Protonix -) 40 mg PO DAILY [facility] Last Admin: 11/20/16 09:33 Dose: 40 mg Ranitidine HCl (Zantac -) 150 mg PO BID [facility] Last Admin: 11/20/16 09:30 Dose: 150 mg Spironolactone (Aldactone -) 25 mg PO DAILY [facility] Last Admin: 11/20/16 09:31 Dose: 25 mg Tamsulosin HCl (Flomax -) 0.4 mg PO DAILY [facility] Last Admin: 11/20/16 09:31 Dose: 0.4 mg Tolnaftate (Tinactin 1% Cream -) 1 applic TP BID [facility] Last Admin: 11/20/16 09:36 Dose: 1 applic Vital Signs Period Temp Pulse Resp BP Sys/Quevedo Pulse Ox Last 24 Hr 94.0 F-99.4 F 60-68 16-25 112-135/56-97 91-100 Intake & Output 11/17/16 11/18/16 11/19/16 11/20/16 23:59 23:59 23:59 23:59 Intake Total 1230 135 Output Total 500 2550 1200 Balance -500 -1320 -1065 Weight 84.232 kg 84.55 kg 84.051 kg Exam: awake, alert and cooperative Neuro: AOx3, Rt prosthetic eye; L pupil responsive to ligh CV: paced 60bpm Pulm: diminished in bases Abd: obese, SNTND Ext: WWP +2, +1 edema - Problems (1) Acute on chronic renal failure Code(s): N17.9 - ACUTE KIDNEY FAILURE, UNSPECIFIED N18.9 - CHRONIC KIDNEY DISEASE, UNSPECIFIED (2) Altered mental status Code(s): R41.82 - ALTERED MENTAL STATUS, UNSPECIFIED Qualifiers: Altered mental status type: disorientation Qualified Code(s): R41.0 - Disorientation, unspecified (3) CHF exacerbation Code(s): I50.9 - HEART FAILURE, UNSPECIFIED Qualifiers: Congestive heart failure type: unspecified congestive heart failure type Qualified Code(s): I50.9 - Heart failure, unspecified (4) Chronic systolic CHF (congestive heart failure) Code(s): I50.22 - CHRONIC SYSTOLIC (CONGESTIVE) HEART FAILURE [age] [place] resident with PMHx dementia, CVA with rt sided weakness, A-fib w/ pacemaker, DMII, CKD, COPD, HTN, CHF, HLD, Epilepsy and PA s/p stents who was brought in to the ED after 2 days of cough, respiratory distress and AMS m/l in the setting of CHF exacerbation. Ccb NSTEMI, acute on chronic YONG, -BiPAP support for O2 sat>92% -Albuterol/Atroventnebs -Lasix diuresis for goal 1-2L net neg -Aspiration precaution -Diuresis, repleat lytes -Cont dual antiplatelet and statin -no systemic anticoagulation given sz hx risk of fall -Cont antihypertensive and vasodilators -Cont Keppra -Check keppra level -PPI/Hep SQ Boerem ACNP Pulm/CCM CCT: 35m
[2016-11-20] MEDS ORDERED: HEMOQUE TEST 1 EACH EACH ONE (11:01)
[2016-11-20 13:03] LABS: CALCIUM 7.5 mg/dL (8.5-10.1); COCKROFT - GAULT 32.58; CREATININE 2.4 mg/dL (0.7-1.3)
--- NOTE | 2016-11-20 18:02 | PN ---
Progress Note, Physician Chief Complaint: had d/w do not want snf want to dc home - Current Medication List Current Medications: Active Medications Acetaminophen (Tylenol -) 650 mg PO Q6H PRN PRN Reason: PAIN Last Admin: 11/19/16 21:53 Dose: 650 mg Albuterol/Ipratropium (Duoneb -) 1 amp NEB QIDR [facility] Last Admin: 11/20/16 17:48 Dose: Not Given Aspirin (Ecotrin -) 81 mg PO DAILY [facility] Last Admin: 11/20/16 09:31 Dose: 81 mg Atorvastatin Calcium (Lipitor -) 10 mg PO HS [facility] Last Admin: 11/19/16 21:26 Dose: 10 mg Carvedilol (Coreg -) 12.5 mg PO BID [facility] Last Admin: 11/20/16 09:32 Dose: 12.5 mg Clopidogrel Bisulfate (Plavix -) 75 mg PO DAILY [facility] Last Admin: 11/20/16 09:30 Dose: 75 mg Docusate Sodium (Colace -) 100 mg PO DAILY [facility] Last Admin: 11/20/16 09:31 Dose: 100 mg Donepezil HCl (Aricept -) 5 mg PO DAILY [facility] Last Admin: 11/20/16 09:33 Dose: 5 mg Ergocalciferol (Drisdol -) 50,000 unit PO Q7D@1000 [facility] Ferrous Sulfate (Feosol -) 325 mg PO BID [facility] Last Admin: 11/20/16 09:32 Dose: 325 mg Finasteride (Proscar -) 5 mg PO DAILY [facility] Last Admin: 11/20/16 09:34 Dose: 5 mg Furosemide (Lasix Injection -) 40 mg IVPB BID@0600,1400 [facility] Last Admin: 11/20/16 13:16 Dose: 40 mg Gabapentin (Neurontin -) 300 mg PO BID [facility] Last Admin: 11/20/16 09:33 Dose: 300 mg Insulin Aspart (Novolog Vial Sliding Scale -) 0 vial SQ ACHS [facility] PRN Reason: Protocol Last Admin: 11/20/16 17:33 Dose: 6 units Isosorbide Mononitrate (Imdur -) 30 mg PO DAILY [facility] Last Admin: 11/20/16 09:31 Dose: 30 mg Levetiracetam (Keppra -) 1,000 mg PO BID [facility] Last Admin: 11/20/16 09:30 Dose: 1,000 mg Lisinopril (Prinivil) 10 mg PO DAILY [facility] Last Admin: 11/20/16 09:33 Dose: 10 mg Mirtazapine (Remeron -) 15 mg PO HS [facility] Last Admin: 11/19/16 21:26 Dose: 15 mg Nifedipine (Procardia Xl -) 60 mg PO DAILY [facility] Last Admin: 11/20/16 09:30 Dose: 60 mg Non-Formulary Medication (Insulin Degludec [Tresiba Flextouch U-100]) 42 unit SQ DAILY [facility] Non-Formulary Medication (Lidocaine [Aspercreme]) 1 each TP DAILY [facility] Oxycodone HCl (Roxicodone -) 10 mg PO Q6H PRN PRN Reason: PAIN Pantoprazole Sodium (Protonix -) 40 mg PO DAILY [facility] Last Admin: 11/20/16 09:33 Dose: 40 mg Ranitidine HCl (Zantac -) 150 mg PO BID [facility] Last Admin: 11/20/16 09:30 Dose: 150 mg Spironolactone (Aldactone -) 25 mg PO DAILY [facility] Last Admin: 11/20/16 09:31 Dose: 25 mg Tamsulosin HCl (Flomax -) 0.4 mg PO DAILY [facility] Last Admin: 11/20/16 09:31 Dose: 0.4 mg Tolnaftate (Tinactin 1% Cream -) 1 applic TP BID [facility] Last Admin: 11/20/16 09:36 Dose: 1 applic - Objective Vital Signs: Vital Signs Temperature 97.7 F 11/20/16 14:00 Pulse Rate 63 11/20/16 16:00 Respiratory Rate 20 11/20/16 16:00 Blood Pressure 130/67 11/20/16 16:00 O2 Sat by Pulse Oximetry (%) 94 L 11/20/16 17:47 Constitutional: Yes: Calm Neck: Yes: WNL Cardiovascular: Yes: WNL Respiratory: Yes: WNL, Other (bipap) Edema: No Labs: CBC, BMP 11/20/16 09:10 11/20/16 09:10 INR, PTT INR 1.22 (0.82-1.09) H 11/18/16 18:10 Problem List - Problems (1) Acute on chronic renal failure Code(s): N17.9 - ACUTE KIDNEY FAILURE, UNSPECIFIED N18.9 - CHRONIC KIDNEY DISEASE, UNSPECIFIED (2) Altered mental status Code(s): R41.82 - ALTERED MENTAL STATUS, UNSPECIFIED Qualifiers: Altered mental status type: disorientation Qualified Code(s): R41.0 - Disorientation, unspecified (3) Atrial flutter Code(s): I48.92 - UNSPECIFIED ATRIAL FLUTTER Qualifiers: (4) CHF exacerbation Code(s): I50.9 - HEART FAILURE, UNSPECIFIED Qualifiers: Congestive heart failure type: unspecified congestive heart failure type Qualified Code(s): I50.9 - Heart failure, unspecified (5) Dementia Code(s): F03.90 - UNSPECIFIED DEMENTIA WITHOUT BEHAVIORAL DISTURBANCE Qualifiers: Dementia behavioral disturbance: without behavioral disturbance (6) Epilepsy Code(s): G40.909 - EPILEPSY, UNSP, NOT INTRACTABLE, WITHOUT STATUS EPILEPTICUS (7) COPD (chronic obstructive pulmonary disease) Code(s): J44.9 - CHRONIC OBSTRUCTIVE PULMONARY DISEASE, UNSPECIFIED Assessment/Plan Patient is a 75 year old male, from [facility], with significant medical hx of dementia, CVA w/ right sided weakness, AFib, DM, CKD, COPD (s/p intubation 2005), CHF, HTN, HLD, and NC s/p stents who is presenting to the ED in respiratory distress since last night. Per family, the patient has been dyspneic that worsens when the patient lies flat; he was also noted to have an O2Sat of 78%. Family also report the patient has been coughing a lot and was witnessed foaming at the mouth last night. Family member endorses the patient has had decreased urinary output despite taking in fluids. Today the patient appeared confused and was reportedly hallucinating. The patient denies chest pain, headache and dizziness. Denies fever, chills, nausea, vomiting, diarrhea and constipation. Denies dysuria, frequency, urgency and hematuria. (1) Acute on chronic renal failure Code(s): N17.9 - ACUTE KIDNEY FAILURE, UNSPECIFIED N18.9 - CHRONIC KIDNEY DISEASE, UNSPECIFIED RENAL ON CASE IMPROVED ON IV LASIX (2) Altered mental status Code(s): R41.82 - ALTERED MENTAL STATUS, UNSPECIFIED Qualifiers: Altered mental status type: disorientation Qualified Code(s): R41.0 - Disorientation, unspecified ICU 2/2 HYPOXIA (3) Atrial flutter Code(s): I48.92 - UNSPECIFIED ATRIAL FLUTTER Qualifiers: DAPT NOT ON AC CARDIO ON CASE (4) CHF exacerbation Code(s): I50.9 - HEART FAILURE, UNSPECIFIED Qualifiers: Congestive heart failure type: unspecified congestive heart failure type Qualified Code(s): I50.9 - Heart failure, unspecified IMPROVED IV LASIX (5) Dementia Code(s): F03.90 - UNSPECIFIED DEMENTIA WITHOUT BEHAVIORAL DISTURBANCE Qualifiers: Dementia behavioral disturbance: without behavioral disturbance SNF (6) Epilepsy Code(s): G40.909 - EPILEPSY, UNSP, NOT INTRACTABLE, WITHOUT STATUS EPILEPTICUS AED (7) COPD (chronic obstructive pulmonary disease) Code(s): J44.9 - CHRONIC OBSTRUCTIVE PULMONARY DISEASE, UNSPECIFIED 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
[2016-11-20] MEDS: ACETAMINOPHEN 325 MG TABLET (FP) PO PRN (21:50)
[2016-11-20] MEDS: MIRTAZAPINE 15 MG TABLET (FP) PO SCH (21:51)
[2016-11-20] MEDS: ATORVASTATIN CA 10 MG TABLET (FP) PO SCH (21:51)
[2016-11-21] MEDS: ALBUTEROL SO4 2.5/IPRATROPIUM 0.5 INH SOL 3 ML VIAL.NEB. NEB SCH ×4 (00:02→18:00)
[2016-11-21] MEDS: FUROSEMIDE 40 MG/4 ML INJECTABLE VIAL IVPB SCH ×2 (05:47→14:50)
[2016-11-21 06:13] LABS: BASOPHIL 0.5 % (0-2.0); EOSINOPHIL 4.2 % (0-4.5); MCH 24.9 pg (25.7-33.7); MEAN PLT VOLUME 8.9 fl (7.5-11.1); NEUTROPHILS 75.6 % (42.8-82.8); PLATELET COUNT 247 K/MM3 (134-434); RDW 19.4 % (11.9-15.9); WHITE BLOOD COUNT 6.5 K/mm3 (4.0-10.0)
[2016-11-21] MEDS: INSULIN SLIDING SCALE (NOVOLOG) 1 VIAL SQ SCH ×4 (06:29→21:47)
[2016-11-21] MEDS ORDERED: ALBUTEROL SO4 0.083% IH SOL 2.5 MG/3 ML VIAL.NEB. NEB ONE (06:38)
[2016-11-21 06:50] LABS: CALCIUM 7.7 mg/dL (8.5-10.1)
--- NOTE | 2016-11-21 06:55 | PN ---
Physical Exam: SUBJECTIVE: Patient seen and examined OBJECTIVE: Vital Signs Period Temp Pulse Resp BP Sys/Quevedo Pulse Ox Last 24 Hr 97.3 F-97.8 F 60-108 16-25 122-155/59-77 93-100 GENERAL: The patient is awake, alert, and fully oriented, in no acute distress. HEAD: Normal with no signs of trauma. EYES: PERRL, extraocular movements intact, sclera anicteric, conjunctiva clear. No ptosis. ENT: Ears normal, nares patent, oropharynx clear without exudates, moist mucous membranes. NECK: Trachea midline, full range of motion, supple. LUNGS: Breath sounds equal, clear to auscultation bilaterally, no wheezes, no crackles, no accessory muscle use. HEART: Regular rate and rhythm, S1, S2 without murmur, rub or gallop. ABDOMEN: Soft, nontender, nondistended, normoactive bowel sounds, no guarding, no rebound, no hepatosplenomegaly, no masses. EXTREMITIES: 2+ pulses, warm, well-perfused, no edema. NEUROLOGICAL: Cranial nerves II through XII grossly intact. Normal speech, gait not observed. PSYCH: Normal mood, normal affect. SKIN: Warm, dry, normal turgor, no rashes or lesions noted Laboratory Results - last 24 hr 11/20/16 11/20/16 11/20/16 09:10 09:10 11:05 WBC 7.7 RBC 3.92 L Hgb 9.7 L D Hct 30.8 L MCV 78.6 L MCHC 31.4 L RDW 19.8 H Plt Count 211 MPV 8.5 Neutrophils % 81.3 Lymphocytes % 7.6 L Monocytes % 8.0 Eosinophils % 2.5 Basophils % 0.6 Sodium 141 Potassium 4.4 Chloride 101 Carbon Dioxide 31 Anion Gap 9 BUN 58 H Creatinine 2.4 H POC Glucometer [phone] Random Glucose 108 H D Calcium 7.5 L 11/20/16 11/20/16 11/21/16 16:38 21:57 05:15 WBC 6.5 RBC 3.84 L Hgb 9.6 L Hct 29.9 L MCV 78.0 L MCHC 32.0 RDW 19.4 H Plt Count 247 MPV 8.9 Neutrophils % 75.6 Lymphocytes % 9.8 D Monocytes % 9.9 Eosinophils % 4.2 Basophils % 0.5 Sodium Potassium Chloride Carbon Dioxide Anion Gap BUN Creatinine POC Glucometer [phone] Random Glucose Calcium Active Medications Generic Name Dose Route Start Last Admin Trade Name Freq PRN Reason Stop Dose Admin Acetaminophen 650 mg 11/18/16 20:03 11/20/16 21:50 Tylenol - PO 650 mg Q6H PRN Administration PAIN Albuterol/Ipratropium 1 amp 11/19/16 00:30 11/21/16 00:02 Duoneb - NEB 1 amp QIDR [facility] Administration Aspirin 81 mg 11/19/16 10:00 11/20/16 09:31 Ecotrin - PO 81 mg DAILY [facility] Administration Atorvastatin Calcium 10 mg 11/18/16 22:00 11/20/16 21:51 Lipitor - PO 10 mg HS [facility] Administration Carvedilol 12.5 mg 11/18/16 22:00 11/20/16 21:51 Coreg - PO 12.5 mg BID [facility] Administration Clopidogrel Bisulfate 75 mg 11/19/16 10:00 11/20/16 09:30 Plavix - PO 75 mg DAILY [facility] Administration Docusate Sodium 100 mg 11/19/16 10:00 11/20/16 09:31 Colace - PO 100 mg DAILY [facility] Administration Donepezil HCl 5 mg 11/19/16 10:00 11/20/16 09:33 Aricept - PO 5 mg DAILY [facility] Administration Ergocalciferol 50,000 unit 11/25/16 10:00 Drisdol - PO Q7D@1000 [facility] Ferrous Sulfate 325 mg 11/21/16 10:00 Feosol - PO DAILY [facility] Finasteride 5 mg 11/19/16 10:00 11/20/16 09:34 Proscar - PO 5 mg DAILY [facility] Administration Furosemide 40 mg 11/19/16 14:00 11/21/16 05:47 Lasix Injection - IVPB 40 mg BID@0600,1400 [facility] Administration Gabapentin 300 mg 11/18/16 22:00 11/20/16 21:51 Neurontin - PO 300 mg BID [facility] Administration Insulin Aspart 0 vial 11/18/16 22:00 11/21/16 06:29 Novolog Vial Sliding Scale - SQ Not Given ACHS [facility] Protocol Isosorbide Mononitrate 30 mg 11/19/16 10:00 11/20/16 09:31 Imdur - PO 30 mg DAILY [facility] Administration Levetiracetam 1,000 mg 11/18/16 22:00 11/20/16 21:51 Keppra - PO 1,000 mg BID [facility] Administration Lisinopril 10 mg 11/19/16 10:00 11/20/16 09:33 Prinivil PO 10 mg DAILY [facility] Administration Mirtazapine 15 mg 11/18/16 22:00 11/20/16 21:51 Remeron - PO 15 mg HS [facility] Administration Nifedipine 60 mg 11/19/16 10:00 11/20/16 09:30 Procardia Xl - PO 60 mg DAILY [facility] Administration Non-Formulary Medication 42 unit 11/19/16 10:00 Insulin Degludec [Tresiba Flextouch U-100] SQ DAILY [facility] Non-Formulary Medication 1 each 11/19/16 10:00 Lidocaine [Aspercreme] TP DAILY [facility] Oxycodone HCl 10 mg 11/18/16 20:03 Roxicodone - PO Q6H PRN [facility]IN Pantoprazole Sodium 40 mg 11/19/16 10:00 11/20/16 09:33 Protonix - PO 40 mg DAILY [facility] Administration Ranitidine HCl 150 mg 11/18/16 22:00 11/20/16 21:51 Zantac - PO 150 mg BID [facility] Administration Spironolactone 25 mg 11/19/16 10:00 11/20/16 09:31 Aldactone - PO 25 mg DAILY [facility] Administration Tamsulosin HCl 0.4 mg 11/19/16 10:00 11/20/16 09:31 Flomax - PO 0.4 mg DAILY [facility] Administration Tolnaftate 1 applic 11/18/16 22:00 11/20/16 22:00 Tinactin 1% Cream - TP 1 applic BID [facility] Administration ASSESSMENT/PLAN:
[2016-11-21 07:02] LABS: COCKROFT - GAULT 35.16; CREATININE 2.2 mg/dL (0.7-1.3); THYROID STIMULATING HORMONE 1.52 uIU/ml (0.358-3.74)
[2016-11-21 07:36] LABS: TROPONIN I 1.8 ng/ml (0.00-0.05)
--- NOTE | 2016-11-21 09:10 | PN ---
Progress Note, Physician History of Present Illness: Renal f/u Pt remains in no distress Mentation improved BC no growth and UC suggests a contaminant TSH wnl - Current Medication List Current Medications: Active Medications Acetaminophen (Tylenol -) 650 mg PO Q6H PRN PRN Reason: PAIN Last Admin: 11/20/16 21:50 Dose: 650 mg Albuterol/Ipratropium (Duoneb -) 1 amp NEB QIDR [facility] Last Admin: 11/21/16 06:30 Dose: 1 amp Aspirin (Ecotrin -) 81 mg PO DAILY [facility] Last Admin: 11/20/16 09:31 Dose: 81 mg Atorvastatin Calcium (Lipitor -) 10 mg PO HS [facility] Last Admin: 11/20/16 21:51 Dose: 10 mg Carvedilol (Coreg -) 12.5 mg PO BID [facility] Last Admin: 11/20/16 21:51 Dose: 12.5 mg Clopidogrel Bisulfate (Plavix -) 75 mg PO DAILY [facility] Last Admin: 11/20/16 09:30 Dose: 75 mg Docusate Sodium (Colace -) 100 mg PO DAILY [facility] Last Admin: 11/20/16 09:31 Dose: 100 mg Donepezil HCl (Aricept -) 5 mg PO DAILY [facility] Last Admin: 11/20/16 09:33 Dose: 5 mg Ergocalciferol (Drisdol -) 50,000 unit PO Q7D@1000 [facility] Ferrous Sulfate (Feosol -) 325 mg PO DAILY [facility] Finasteride (Proscar -) 5 mg PO DAILY [facility] Last Admin: 11/20/16 09:34 Dose: 5 mg Furosemide (Lasix Injection -) 40 mg IVPB BID@0600,1400 [facility] Last Admin: 11/21/16 05:47 Dose: 40 mg Gabapentin (Neurontin -) 300 mg PO BID [facility] Last Admin: 11/20/16 21:51 Dose: 300 mg Insulin Aspart (Novolog Vial Sliding Scale -) 0 vial SQ ACHS [facility] PRN Reason: Protocol Last Admin: 11/21/16 06:29 Dose: Not Given Isosorbide Mononitrate (Imdur -) 30 mg PO DAILY [facility] Last Admin: 11/20/16 09:31 Dose: 30 mg Levetiracetam (Keppra -) 1,000 mg PO BID [facility] Last Admin: 11/20/16 21:51 Dose: 1,000 mg Lisinopril (Prinivil) 10 mg PO DAILY [facility] Last Admin: 11/20/16 09:33 Dose: 10 mg Mirtazapine (Remeron -) 15 mg PO HS [facility] Last Admin: 11/20/16 21:51 Dose: 15 mg Nifedipine (Procardia Xl -) 60 mg PO DAILY [facility] Last Admin: 11/20/16 09:30 Dose: 60 mg Non-Formulary Medication (Insulin Degludec [Tresiba Flextouch U-100]) 42 unit SQ DAILY [facility] Non-Formulary Medication (Lidocaine [Aspercreme]) 1 each TP DAILY [facility] Oxycodone HCl (Roxicodone -) 10 mg PO Q6H PRN PRN Reason: PAIN Pantoprazole Sodium (Protonix -) 40 mg PO DAILY [facility] Last Admin: 11/20/16 09:33 Dose: 40 mg Ranitidine HCl (Zantac -) 150 mg PO BID [facility] Last Admin: 11/20/16 21:51 Dose: 150 mg Spironolactone (Aldactone -) 25 mg PO DAILY [facility] Last Admin: 11/20/16 09:31 Dose: 25 mg Tamsulosin HCl (Flomax -) 0.4 mg PO DAILY [facility] Last Admin: 11/20/16 09:31 Dose: 0.4 mg Tolnaftate (Tinactin 1% Cream -) 1 applic TP BID [facility] Last Admin: 11/20/16 22:00 Dose: 1 applic - Objective Vital Signs: Vital Signs Temperature 97.8 F 11/21/16 06:00 Pulse Rate 61 11/21/16 06:00 Respiratory Rate 18 11/21/16 06:00 Blood Pressure 151/73 11/21/16 06:00 O2 Sat by Pulse Oximetry (%) 100 11/21/16 04:00 Constitutional: Yes: No Distress Cardiovascular: Yes: Pulse Irregular, S1, S2 Respiratory: Yes: CTA Bilaterally Gastrointestinal: Yes: Soft. No: Tenderness, Rebound Edema: No Labs: CBC, BMP 11/21/16 05:15 11/21/16 05:15 INR, PTT INR 1.22 (0.82-1.09) H 11/18/16 18:10 Assessment/Plan Impression Acute on CKD with acute worsening from decompensated CHF. Acute component continues to improve.Suspect CKD from DM S/P decompensated HFpEF Respiratory insufficiency H/O COPD A Fib with PPM DM S/P Hypothermia SZD Microcytic anemia on Fe Plan Continue with the present management Lasix, ACEi and Spironolactone as ordered AC as per primary care and cardiology Await rpt Echo report Dr Mccarthy
[2016-11-21] MEDS: FINASTERIDE 5 MG TABLET (FP) PO SCH (10:00)
[2016-11-21] MEDS: ISOSORBIDE MONONITRATE 30 MG TAB.SR.24H (FP) PO SCH (10:00)
[2016-11-21] MEDS: DOCUSATE SODIUM 100 MG CAPSULE (FP) PO SCH (10:00)
[2016-11-21] MEDS: NIFEdipine E.R. 30 MG TABLET (FP) PO SCH (10:35)
[2016-11-21] MEDS: RANITIDINE HCL 150 MG TABLET (FP) PO SCH ×2 (10:35→21:46)
[2016-11-21] MEDS: LISINOPRIL 10 MG TABLET (FP) PO SCH (10:36)
[2016-11-21] MEDS: FERROUS SO4 325 MG TABLET (FP) PO SCH (10:36)
[2016-11-21] MEDS: SPIRONOLACTONE 25 MG TABLET (FP) PO SCH (10:36)
[2016-11-21] MEDS: ASPIRIN COATED 81 MG TABLET.EC PO SCH (10:36)
[2016-11-21] MEDS: PANTOPRAZOLE 40 MG TABLET (FP) PO SCH (10:36)
[2016-11-21] MEDS: CLOPIDOGREL BISULFATE 75 MG TABLET (FP) PO SCH (10:36)
[2016-11-21] MEDS: TAMSULOSIN HCL 0.4 MG CAP.ER.24H (FP) PO SCH (10:36)
[2016-11-21] MEDS: DONEPEZIL HCL 10 MG TABLET (FP) PO SCH (10:36)
[2016-11-21] MEDS: CARVEDILOL 6.25 MG TABLET (FP) PO SCH ×2 (10:36→21:47)
[2016-11-21] MEDS: GABAPENTIN 300 MG CAPSULE (FP) PO SCH ×2 (10:37→21:46)
[2016-11-21] MEDS: levETIRAcetam 500 MG TABLET (FP) PO SCH ×2 (10:37→21:46)
[2016-11-21] MEDS: TOLNAFTATE 1% CREAM 15 GM TUBE TP SCH ×2 (10:37→23:28)
--- NOTE | 2016-11-21 12:16 | EKG ---
Test Reason : Blood Pressure : / mmHG Vent. Rate : 060 BPM Atrial Rate : 060 BPM P-R Int : 000 ms QRS Dur : 138 ms QT Int : 484 ms P-R-T Axes : 119 -69 115 degrees QTc Int : 484 ms Ventricular-paced rhythm ABNORMAL ECG WHEN COMPARED WITH ECG OF 18-NOV-2016 18:10, NO SIGNIFICANT CHANGE WAS FOUND Confirmed by MURPHY ZELAYA MD ([id number]) on 11/21/2016 12:16:22 PM Referred By: OMAR POWERS Confirmed By:MURPHY ZELAYA MD
--- NOTE | 2016-11-21 14:20 | PN ---
Teaching Attending Note Name of Resident: Caio Alexander ATTENDING PHYSICIAN STATEMENT I saw and evaluated the patient. I reviewed the resident's note and discussed the case with the resident. I agree with the resident's findings and plan as documented. SUBJECTIVE: Patient seen and examined in the ICU. Awake and alert. Reports breathing is better. Now off NIPPV on NC O2. CXR: Bilateral pleural effusions and vascular congestion Intake & Output 11/18/16 11/19/16 11/20/16 11/21/16 23:59 23:59 23:59 23:59 Intake Total 1230 905 240 Output Total 500 2550 2600 1200 Balance -500 -1320 -1695 -960 Weight 185 lb 11.2 oz 186 lb 6.4 oz 185 lb 4.8 oz 183 lb 4.8 oz Last Vital Signs Temp Pulse Resp BP Pulse Ox 98.2 F 97 H 18 144/76 95 11/21/16 12:00 11/21/16 12:00 11/21/16 12:00 11/21/16 12:00 11/21/16 09:28 Active Medications Acetaminophen (Tylenol -) 650 mg PO Q6H PRN PRN Reason: PAIN Last Admin: 11/20/16 21:50 Dose: 650 mg Albuterol/Ipratropium (Duoneb -) 1 amp NEB QIDR [facility] Last Admin: 11/21/16 11:05 Dose: 1 amp Aspirin (Ecotrin -) 81 mg PO DAILY [facility] Last Admin: 11/21/16 10:36 Dose: 81 mg Atorvastatin Calcium (Lipitor -) 10 mg PO HS [facility] Last Admin: 11/20/16 21:51 Dose: 10 mg Carvedilol (Coreg -) 12.5 mg PO BID [facility] Last Admin: 11/21/16 10:36 Dose: 12.5 mg Clopidogrel Bisulfate (Plavix -) 75 mg PO DAILY [facility] Last Admin: 11/21/16 10:36 Dose: 75 mg Docusate Sodium (Colace -) 100 mg PO DAILY [facility] Last Admin: 11/21/16 10:00 Dose: Not Given Donepezil HCl (Aricept -) 5 mg PO DAILY [facility] Last Admin: 11/21/16 10:36 Dose: 5 mg Ergocalciferol (Drisdol -) 50,000 unit PO Q7D@1000 [facility] Ferrous Sulfate (Feosol -) 325 mg PO DAILY [facility] Last Admin: 11/21/16 10:36 Dose: 325 mg Finasteride (Proscar -) 5 mg PO DAILY [facility] Last Admin: 11/20/16 09:34 Dose: 5 mg Furosemide (Lasix Injection -) 40 mg IVPB BID@0600,1400 [facility] Last Admin: 11/21/16 05:47 Dose: 40 mg Gabapentin (Neurontin -) 300 mg PO BID [facility] Last Admin: 11/21/16 10:37 Dose: 300 mg Insulin Aspart (Novolog Vial Sliding Scale -) 0 vial SQ ACHS [facility] PRN Reason: Protocol Last Admin: 11/21/16 11:25 Dose: 6 units Isosorbide Mononitrate (Imdur -) 30 mg PO DAILY [facility] Last Admin: 11/21/16 10:00 Dose: 30 mg Levetiracetam (Keppra -) 1,000 mg PO BID [facility] Last Admin: 11/21/16 10:37 Dose: 1,000 mg Lisinopril (Prinivil) 10 mg PO DAILY [facility] Last Admin: 11/21/16 10:36 Dose: 10 mg Mirtazapine (Remeron -) 15 mg PO HS [facility] Last Admin: 11/20/16 21:51 Dose: 15 mg Nifedipine (Procardia Xl -) 60 mg PO DAILY [facility] Last Admin: 11/21/16 10:35 Dose: 60 mg Non-Formulary Medication (Insulin Degludec [Tresiba Flextouch U-100]) 42 unit SQ DAILY [facility] Non-Formulary Medication (Lidocaine [Aspercreme]) 1 each TP DAILY [facility] Oxycodone HCl (Roxicodone -) 10 mg PO Q6H PRN PRN Reason: PAIN Pantoprazole Sodium (Protonix -) 40 mg PO DAILY [facility] Last Admin: 11/21/16 10:36 Dose: 40 mg Ranitidine HCl (Zantac -) 150 mg PO BID [facility] Last Admin: 11/21/16 10:35 Dose: 150 mg Spironolactone (Aldactone -) 25 mg PO DAILY [facility] Last Admin: 11/21/16 10:36 Dose: 25 mg Tamsulosin HCl (Flomax -) 0.4 mg PO DAILY [facility] Last Admin: 11/21/16 10:36 Dose: 0.4 mg Tolnaftate (Tinactin 1% Cream -) 1 applic TP BID [facility] Last Admin: 11/21/16 10:37 Dose: 1 applic Exam: awake and alert, NAD Neck: (-) JVD CV: paced 60bpm Pulmonary: bilateral rales Abd: obese, SNTND Ext: WWP +2, +1 edema Neuro: Rt prosthetic eye; L pupil responsive IMP: (1) Acute on chronic renal failure Code(s): N17.9 - ACUTE KIDNEY FAILURE, UNSPECIFIED N18.9 - CHRONIC KIDNEY DISEASE, UNSPECIFIED (2) Altered mental status Code(s): R41.82 - ALTERED MENTAL STATUS, UNSPECIFIED Qualifiers: Altered mental status type: disorientation Qualified Code(s): R41.0 - Disorientation, unspecified (3) CHF exacerbation Code(s): I50.9 - HEART FAILURE, UNSPECIFIED Qualifiers: Congestive heart failure type: unspecified congestive heart failure type Qualified Code(s): I50.9 - Heart failure, unspecified (4) Chronic systolic CHF (congestive heart failure) Code(s): I50.22 - CHRONIC SYSTOLIC (CONGESTIVE) HEART FAILURE IMP: Acute Respiratory Failure requiring NIPPV Dementia CVA with right weakness A-fib w/ pacemaker DM CKD COPD HTN CHF HLD Epilepsy AMI S/P PCI PLAN: Lasix NIPPV as needed O2 as needed to maintain saturation BD TX PRN Aspiration precautions Daily weights Antiplatelets Statin Keppra GI / VTE prophylaxis Cardiac Telemetry monitoring Critical care time spent in reviewing chart, evaluating patient, and formulating plan : [address] Schmidt
--- NOTE | 2016-11-21 14:30 | PN ---
Progress Note, Physician - Current Medication List Current Medications: Active Medications Acetaminophen (Tylenol -) 650 mg PO Q6H PRN PRN Reason: PAIN Last Admin: 11/20/16 21:50 Dose: 650 mg Albuterol/Ipratropium (Duoneb -) 1 amp NEB QIDR [facility] Last Admin: 11/21/16 11:05 Dose: 1 amp Aspirin (Ecotrin -) 81 mg PO DAILY [facility] Last Admin: 11/21/16 10:36 Dose: 81 mg Atorvastatin Calcium (Lipitor -) 10 mg PO HS [facility] Last Admin: 11/20/16 21:51 Dose: 10 mg Carvedilol (Coreg -) 12.5 mg PO BID [facility] Last Admin: 11/21/16 10:36 Dose: 12.5 mg Clopidogrel Bisulfate (Plavix -) 75 mg PO DAILY [facility] Last Admin: 11/21/16 10:36 Dose: 75 mg Docusate Sodium (Colace -) 100 mg PO DAILY [facility] Last Admin: 11/21/16 10:00 Dose: Not Given Donepezil HCl (Aricept -) 5 mg PO DAILY [facility] Last Admin: 11/21/16 10:36 Dose: 5 mg Ergocalciferol (Drisdol -) 50,000 unit PO Q7D@1000 [facility] Ferrous Sulfate (Feosol -) 325 mg PO DAILY [facility] Last Admin: 11/21/16 10:36 Dose: 325 mg Finasteride (Proscar -) 5 mg PO DAILY [facility] Last Admin: 11/20/16 09:34 Dose: 5 mg Furosemide (Lasix Injection -) 40 mg IVPB BID@0600,1400 [facility] Last Admin: 11/21/16 05:47 Dose: 40 mg Gabapentin (Neurontin -) 300 mg PO BID [facility] Last Admin: 11/21/16 10:37 Dose: 300 mg Insulin Aspart (Novolog Vial Sliding Scale -) 0 vial SQ ACHS [facility] PRN Reason: Protocol Last Admin: 11/21/16 11:25 Dose: 6 units Isosorbide Mononitrate (Imdur -) 30 mg PO DAILY [facility] Last Admin: 11/21/16 10:00 Dose: 30 mg Levetiracetam (Keppra -) 1,000 mg PO BID [facility] Last Admin: 11/21/16 10:37 Dose: 1,000 mg Lisinopril (Prinivil) 10 mg PO DAILY [facility] Last Admin: 11/21/16 10:36 Dose: 10 mg Mirtazapine (Remeron -) 15 mg PO HS [facility] Last Admin: 11/20/16 21:51 Dose: 15 mg Nifedipine (Procardia Xl -) 60 mg PO DAILY [facility] Last Admin: 11/21/16 10:35 Dose: 60 mg Non-Formulary Medication (Insulin Degludec [Tresiba Flextouch U-100]) 42 unit SQ DAILY [facility] Non-Formulary Medication (Lidocaine [Aspercreme]) 1 each TP DAILY [facility] Oxycodone HCl (Roxicodone -) 10 mg PO Q6H PRN PRN Reason: PAIN Pantoprazole Sodium (Protonix -) 40 mg PO DAILY [facility] Last Admin: 11/21/16 10:36 Dose: 40 mg Ranitidine HCl (Zantac -) 150 mg PO BID [facility] Last Admin: 11/21/16 10:35 Dose: 150 mg Spironolactone (Aldactone -) 25 mg PO DAILY [facility] Last Admin: 11/21/16 10:36 Dose: 25 mg Tamsulosin HCl (Flomax -) 0.4 mg PO DAILY [facility] Last Admin: 11/21/16 10:36 Dose: 0.4 mg Tolnaftate (Tinactin 1% Cream -) 1 applic TP BID [facility] Last Admin: 11/21/16 10:37 Dose: 1 applic - Objective Vital Signs: Vital Signs Temperature 98.2 F 11/21/16 12:00 Pulse Rate 97 H 11/21/16 12:00 Respiratory Rate 18 11/21/16 12:00 Blood Pressure 144/76 11/21/16 12:00 O2 Sat by Pulse Oximetry (%) 95 11/21/16 09:28 Eyes: Yes: WNL, Conjunctiva Clear, EOM Intact HENT: Yes: WNL, Atraumatic, Normocephalic Neck: Yes: WNL, Supple, Trachea Midline Cardiovascular: Yes: WNL, Regular Rate and Rhythm Respiratory: Yes: WNL, Regular, CTA Bilaterally Gastrointestinal: Yes: WNL, Normal Bowel Sounds Genitourinary: Yes: WNL Musculoskeletal: Yes: WNL Extremities: Yes: WNL Edema: No Edema: LLE: 1+, RLE: 1+ Integumentary: Yes: WNL Neurological: Yes: WNL, Alert, Oriented ...Motor Strength: WNL Psychiatric: Yes: WNL Labs: CBC, BMP 11/21/16 05:15 11/21/16 05:15 INR, PTT INR 1.22 (0.82-1.09) H 11/18/16 18:10 Assessment/Plan IMP: Acute on chronic systolic CHF CAD AF s/p PPM Acute on chronic renal failure Hypothermia REC: 1. CHF: -History moderate LV dysfx -Continue IV Lasix -Bipap as needed -suspect elevated TnI w/ Nl CK due to decompensated CHF in setting CKD -Repeat echo tomorrow -Cont Coreg and home meds -Daily lytes 2. CAD: -on ASA and Plavix -Suspect TnI elevated due to CHF -Echo pending -statin 3. AF: -s/p PPM -Not on full AC for unclear reasons (?seizures and falls risk?). On dual antiplatelet therapy for CAD -Will need to clarify details with Dr. Higgins 4. Acute on chronic RF: -Probably due to decompensated CHF -Creat may improve with diuresis, awaiting today's labs 5. Hypothermia: -cultures negative so far -Check TSH -Abx deferred to ICU team
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
--- NOTE | 2016-11-21 18:51 | PN ---
[id number] (Tylenol -) 650 mg PO Q6H PRN PRN Reason: PAIN Last Admin: 11/20/16 21:50 Dose: 650 mg Albuterol/Ipratropium (Duoneb -) 1 amp NEB QIDR [facility] Last Admin: 11/21/16 18:00 Dose: 1 amp Aspirin (Ecotrin -) 81 mg PO DAILY [facility] Last Admin: 11/21/16 10:36 Dose: 81 mg Atorvastatin Calcium (Lipitor -) 10 mg PO HS [facility] Last Admin: 11/20/16 21:51 Dose: 10 mg Carvedilol (Coreg -) 12.5 mg PO BID [facility] Last Admin: 11/21/16 10:36 Dose: 12.5 mg Clopidogrel Bisulfate (Plavix -) 75 mg PO DAILY [facility] Last Admin: 11/21/16 10:36 Dose: 75 mg Docusate Sodium (Colace -) 100 mg PO DAILY [facility] Last Admin: 11/21/16 10:00 Dose: Not Given Donepezil HCl (Aricept -) 5 mg PO DAILY [facility] Last Admin: 11/21/16 10:36 Dose: 5 mg Ergocalciferol (Drisdol -) 50,000 unit PO Q7D@1000 [facility] Ferrous Sulfate (Feosol -) 325 mg PO DAILY [facility] Last Admin: 11/21/16 10:36 Dose: 325 mg Finasteride (Proscar -) 5 mg PO DAILY [facility] Last Admin: 11/21/16 10:00 Dose: 5 mg Furosemide (Lasix Injection -) 40 mg IVPB BID@0600,1400 [facility] Last Admin: 11/21/16 14:50 Dose: 40 mg Gabapentin (Neurontin -) 300 mg PO BID [facility] Last Admin: 11/21/16 10:37 Dose: 300 mg Insulin Aspart (Novolog Vial Sliding Scale -) 0 vial SQ ACHS [facility] PRN Reason: Protocol Last Admin: 11/21/16 18:05 Dose: 2 units Isosorbide Mononitrate (Imdur -) 30 mg PO DAILY [facility] Last Admin: 11/21/16 10:00 Dose: 30 mg Levetiracetam (Keppra -) 1,000 mg PO BID [facility] Last Admin: 11/21/16 10:37 Dose: 1,000 mg Lisinopril (Prinivil) 10 mg PO DAILY [facility] Last Admin: 11/21/16 10:36 Dose: 10 mg Mirtazapine (Remeron -) 15 mg PO HS [facility] Last Admin: 11/20/16 21:51 Dose: 15 mg Nifedipine (Procardia Xl -) 60 mg PO DAILY [facility] Last Admin: 11/21/16 10:35 Dose: 60 mg Non-Formulary Medication (Insulin Degludec [Tresiba Flextouch U-100]) 42 unit SQ DAILY [facility] Non-Formulary Medication (Lidocaine [Aspercreme]) 1 each TP DAILY [facility] Oxycodone HCl (Roxicodone -) 10 mg PO Q6H PRN PRN Reason: PAIN Pantoprazole Sodium (Protonix -) 40 mg PO DAILY [facility] Last Admin: 11/21/16 10:36 Dose: 40 mg Ranitidine HCl (Zantac -) 150 mg PO BID [facility] Last Admin: 11/21/16 10:35 Dose: 150 mg Spironolactone (Aldactone -) 25 mg PO DAILY [facility] Last Admin: 11/21/16 10:36 Dose: 25 mg Tamsulosin HCl (Flomax -) 0.4 mg PO DAILY [facility] Last Admin: 11/21/16 10:36 Dose: 0.4 mg Tolnaftate (Tinactin 1% Cream -) 1 applic TP BID [facility] Last Admin: 11/21/16 10:37 Dose: 1 applic - Objective Vital Signs: Vital Signs Temperature 98.5 F 11/21/16 14:00 Pulse Rate 90 11/21/16 14:00 Respiratory Rate 18 11/21/16 14:00 Blood Pressure 142/72 11/21/16 14:00 O2 Sat by Pulse Oximetry (%) 95 11/21/16 09:28 Constitutional: Yes: Calm Neck: Yes: WNL Cardiovascular: Yes: WNL Respiratory: Yes: Rales Gastrointestinal: Yes: WNL Edema: Yes Labs: CBC, BMP 11/21/16 05:15 11/21/16 05:15 INR, PTT INR 1.22 (0.82-1.09) H 11/18/16 18:10 Problem List - Problems (1) Acute on chronic renal failure Code(s): N17.9 - ACUTE KIDNEY FAILURE, UNSPECIFIED N18.9 - CHRONIC KIDNEY DISEASE, UNSPECIFIED (2) Altered mental status Code(s): R41.82 - ALTERED MENTAL STATUS, UNSPECIFIED Qualifiers: Altered mental status type: disorientation Qualified Code(s): R41.0 - Disorientation, unspecified (3) Atrial flutter Code(s): I48.92 - UNSPECIFIED ATRIAL FLUTTER Qualifiers: (4) CHF exacerbation Code(s): I50.9 - HEART FAILURE, UNSPECIFIED Qualifiers: Congestive heart failure type: unspecified congestive heart failure type Qualified Code(s): I50.9 - Heart failure, unspecified (5) Dementia Code(s): F03.90 - UNSPECIFIED DEMENTIA WITHOUT BEHAVIORAL DISTURBANCE Qualifiers: Dementia behavioral disturbance: without behavioral disturbance (6) Epilepsy Code(s): G40.909 - EPILEPSY, UNSP, NOT INTRACTABLE, WITHOUT STATUS EPILEPTICUS (7) COPD (chronic obstructive pulmonary disease) Code(s): J44.9 - CHRONIC OBSTRUCTIVE PULMONARY DISEASE, UNSPECIFIED Assessment/Plan Patient is a 75 year old male, from [facility], with significant medical hx of dementia, CVA w/ right sided weakness, AFib, DM, CKD, COPD (s/p intubation 2005), CHF, HTN, HLD, and MD s/p stents who is presenting to the ED in respiratory distress since last night. Per family, the patient has been dyspneic that worsens when the patient lies flat; he was also noted to have an O2Sat of 78%. Family also report the patient has been coughing a lot and was witnessed foaming at the mouth last night. Family member endorses the patient has had decreased urinary output despite taking in fluids. Today the patient appeared confused and was reportedly hallucinating. The patient denies chest pain, headache and dizziness. Denies fever, chills, nausea, vomiting, diarrhea and constipation. Denies dysuria, frequency, urgency and hematuria. (1) Acute on chronic renal failure Code(s): N17.9 - ACUTE KIDNEY FAILURE, UNSPECIFIED N18.9 - CHRONIC KIDNEY DISEASE, UNSPECIFIED RENAL ON CASE IMPROVED ON IV LASIX (2) Altered mental status Code(s): R41.82 - ALTERED MENTAL STATUS, UNSPECIFIED Qualifiers: Altered mental status type: disorientation Qualified Code(s): R41.0 - Disorientation, unspecified ICU 2/2 HYPOXIA (3) Atrial flutter Code(s): I48.92 - UNSPECIFIED ATRIAL FLUTTER Qualifiers: DAPT NOT ON AC CARDIO ON CASE (4) CHF exacerbation Code(s): I50.9 - HEART FAILURE, UNSPECIFIED Qualifiers: Congestive heart failure type: unspecified congestive heart failure type Qualified Code(s): I50.9 - Heart failure, unspecified IMPROVED IV LASIX ECHO 11/22 (5) Dementia Code(s): F03.90 - UNSPECIFIED DEMENTIA WITHOUT BEHAVIORAL DISTURBANCE Qualifiers: Dementia behavioral disturbance: without behavioral disturbance SNF (6) Epilepsy Code(s): G40.909 - EPILEPSY, UNSP, NOT INTRACTABLE, WITHOUT STATUS EPILEPTICUS AED (7) COPD (chronic obstructive pulmonary disease) Code(s): J44.9 - CHRONIC OBSTRUCTIVE PULMONARY DISEASE, UNSPECIFIED 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
[2016-11-21] MEDS ORDERED: INSULIN (NOVOLOG) ASPART 100 UNITS/ML 10ML VIAL ONE (21:45)
[2016-11-21] MEDS: ATORVASTATIN CA 10 MG TABLET (FP) PO SCH (21:46)
[2016-11-21] MEDS: MIRTAZAPINE 15 MG TABLET (FP) PO SCH (21:47)
[2016-11-22] MEDS: ALBUTEROL SO4 2.5/IPRATROPIUM 0.5 INH SOL 3 ML VIAL.NEB. NEB SCH ×4 (00:05→17:57)
[2016-11-22] MEDS: INSULIN SLIDING SCALE (NOVOLOG) 1 VIAL SQ SCH ×4 (06:41→21:43)
[2016-11-22] MEDS: FUROSEMIDE 40 MG/4 ML INJECTABLE VIAL IVPB SCH ×2 (06:52→16:29)
[2016-11-22 07:42] LABS: BASOPHIL 0.4 % (0-2.0); MCH 24.6 pg (25.7-33.7); MCHC 31.1 g/dl (32.0-35.9); MEAN CELL VOLUME 79.2 fl (80-96); MEAN PLT VOLUME 8.4 fl (7.5-11.1); NEUTROPHILS 77.9 % (42.8-82.8); PLATELET COUNT 233 K/MM3 (134-434); RDW 20.5 % (11.9-15.9); WHITE BLOOD COUNT 6.7 K/mm3 (4.0-10.0)
[2016-11-22 08:06] LABS: ALBUMIN 2.6 g/dl (3.4-5.0); BILIRUBIN,TOTAL 0.4 mg/dL (0.2-1.0); CALCIUM 8.1 mg/dL (8.5-10.1); COCKROFT - GAULT 37.35; TOT PROT 6.8 g/dl (6.4-8.2)
[2016-11-22] MEDS: FINASTERIDE 5 MG TABLET (FP) PO SCH (09:28)
[2016-11-22] MEDS: ISOSORBIDE MONONITRATE 30 MG TAB.SR.24H (FP) PO SCH (09:28)
[2016-11-22] MEDS: DONEPEZIL HCL 10 MG TABLET (FP) PO SCH (09:28)
[2016-11-22] MEDS: RANITIDINE HCL 150 MG TABLET (FP) PO SCH ×2 (09:28→21:43)
[2016-11-22] MEDS: GABAPENTIN 300 MG CAPSULE (FP) PO SCH ×2 (09:28→21:43)
[2016-11-22] MEDS: levETIRAcetam 500 MG TABLET (FP) PO SCH (09:29)
[2016-11-22] MEDS: FERROUS SO4 325 MG TABLET (FP) PO SCH (09:29)
[2016-11-22] MEDS: CARVEDILOL 6.25 MG TABLET (FP) PO SCH ×2 (09:29→21:43)
[2016-11-22] MEDS: DOCUSATE SODIUM 100 MG CAPSULE (FP) PO SCH (09:29)
[2016-11-22] MEDS: ASPIRIN COATED 81 MG TABLET.EC PO SCH (09:29)
[2016-11-22] MEDS: CLOPIDOGREL BISULFATE 75 MG TABLET (FP) PO SCH (09:29)
[2016-11-22] MEDS: TAMSULOSIN HCL 0.4 MG CAP.ER.24H (FP) PO SCH (09:30)
[2016-11-22] MEDS: PANTOPRAZOLE 40 MG TABLET (FP) PO SCH (09:30)
[2016-11-22] MEDS: SPIRONOLACTONE 25 MG TABLET (FP) PO SCH (09:30)
[2016-11-22] MEDS: LISINOPRIL 10 MG TABLET (FP) PO SCH (09:30)
[2016-11-22] MEDS: TOLNAFTATE 1% CREAM 15 GM TUBE TP SCH ×2 (09:31→21:43)
[2016-11-22] MEDS: NIFEdipine E.R. 30 MG TABLET (FP) PO SCH (10:38)
--- NOTE | 2016-11-22 11:57 | PN ---
Progress Note, Physician - Current Medication List Current Medications: Active Medications Acetaminophen (Tylenol -) 650 mg PO Q6H PRN PRN Reason: PAIN Last Admin: 11/20/16 21:50 Dose: 650 mg Albuterol/Ipratropium (Duoneb -) 1 amp NEB QIDR [facility] Last Admin: 11/22/16 11:00 Dose: 1 amp Aspirin (Ecotrin -) 81 mg PO DAILY [facility] Last Admin: 11/22/16 09:29 Dose: 81 mg Atorvastatin Calcium (Lipitor -) 10 mg PO HS [facility] Last Admin: 11/21/16 21:46 Dose: 10 mg Carvedilol (Coreg -) 12.5 mg PO BID [facility] Last Admin: 11/22/16 09:29 Dose: 12.5 mg Clopidogrel Bisulfate (Plavix -) 75 mg PO DAILY [facility] Last Admin: 11/22/16 09:29 Dose: 75 mg Docusate Sodium (Colace -) 100 mg PO DAILY [facility] Last Admin: 11/22/16 09:29 Dose: 100 mg Donepezil HCl (Aricept -) 5 mg PO DAILY [facility] Last Admin: 11/22/16 09:28 Dose: 5 mg Ergocalciferol (Drisdol -) 50,000 unit PO Q7D@1000 [facility] Ferrous Sulfate (Feosol -) 325 mg PO DAILY [facility] Last Admin: 11/22/16 09:29 Dose: 325 mg Finasteride (Proscar -) 5 mg PO DAILY [facility] Last Admin: 11/22/16 09:28 Dose: 5 mg Furosemide (Lasix Injection -) 40 mg IVPB BID@0600,1400 [facility] Last Admin: 11/22/16 06:52 Dose: 40 mg Gabapentin (Neurontin -) 300 mg PO BID [facility] Last Admin: 11/22/16 09:28 Dose: 300 mg Insulin Aspart (Novolog Vial Sliding Scale -) 0 vial SQ ACHS [facility] PRN Reason: Protocol Last Admin: 11/22/16 11:40 Dose: 4 units Isosorbide Mononitrate (Imdur -) 30 mg PO DAILY [facility] Last Admin: 11/22/16 09:28 Dose: 30 mg Levetiracetam (Keppra -) 1,000 mg PO BID [facility] Last Admin: 11/22/16 09:29 Dose: 1,000 mg Lisinopril (Prinivil) 10 mg PO DAILY [facility] Last Admin: 11/22/16 09:30 Dose: 10 mg Mirtazapine (Remeron -) 15 mg PO HS [facility] Last Admin: 11/21/16 21:47 Dose: 15 mg Nifedipine (Procardia Xl -) 60 mg PO DAILY [facility] Last Admin: 11/22/16 10:38 Dose: 60 mg Non-Formulary Medication (Insulin Degludec [Tresiba Flextouch U-100]) 42 unit SQ DAILY [facility] Non-Formulary Medication (Lidocaine [Aspercreme]) 1 each TP DAILY [facility] Oxycodone HCl (Roxicodone -) 10 mg PO Q6H PRN PRN Reason: PAIN Pantoprazole Sodium (Protonix -) 40 mg PO DAILY [facility] Last Admin: 11/22/16 09:30 Dose: 40 mg Ranitidine HCl (Zantac -) 150 mg PO BID [facility] Last Admin: 11/22/16 09:28 Dose: 150 mg Spironolactone (Aldactone -) 25 mg PO DAILY [facility] Last Admin: 11/22/16 09:30 Dose: 25 mg Tamsulosin HCl (Flomax -) 0.4 mg PO DAILY [facility] Last Admin: 11/22/16 09:30 Dose: 0.4 mg Tolnaftate (Tinactin 1% Cream -) 1 applic TP BID [facility] Last Admin: 11/22/16 09:31 Dose: 1 applic - Objective Vital Signs: Vital Signs Temperature 97.9 F 11/22/16 05:27 Pulse Rate 65 11/22/16 05:27 Respiratory Rate 16 11/22/16 05:27 Blood Pressure 151/78 11/22/16 05:27 O2 Sat by Pulse Oximetry (%) 94 L 11/21/16 21:00 Eyes: Yes: WNL, Conjunctiva Clear, EOM Intact HENT: Yes: WNL, Atraumatic, Normocephalic Neck: Yes: WNL, Supple, Trachea Midline Cardiovascular: Yes: WNL, Regular Rate and Rhythm Respiratory: Yes: WNL, Regular, CTA Bilaterally Gastrointestinal: Yes: WNL, Normal Bowel Sounds Genitourinary: Yes: WNL Musculoskeletal: Yes: WNL Extremities: Yes: WNL Edema: No Integumentary: Yes: WNL Neurological: Yes: WNL, Alert, Oriented ...Motor Strength: WNL Psychiatric: Yes: WNL Labs: CBC, BMP 11/22/16 06:30 11/22/16 06:30 INR, PTT INR 1.22 (0.82-1.09) H 11/18/16 18:10 Assessment/Plan IMP: Acute on chronic systolic CHF CAD AF s/p PPM Acute on chronic renal failure Hypothermia REC: 1. CHF: -History moderate LV dysfx -Continue IV Lasix -Bipap as needed -suspect elevated TnI w/ Nl CK due to decompensated CHF in setting CKD -Repeat echo tomorrow -Cont Coreg and home meds -Daily lytes 2. CAD: -on ASA and Plavix -Suspect TnI elevated due to CHF -Echo pending -statin 3. AF: -s/p PPM -Not on full AC for unclear reasons (?seizures and falls risk?). On dual antiplatelet therapy for CAD -Will need to clarify details with Dr. Higgins 4. Acute on chronic RF: -Probably due to decompensated CHF -Creat may improve with diuresis, awaiting today's labs 5. Hypothermia: -cultures negative so far -Check TSH -Abx deferred to ICU team
--- NOTE | 2016-11-22 14:12 | PN ---
Progress Note, Physician History of Present Illness: pulmonary alert,nad,-sob. - Current Medication List Current Medications: Active Medications Acetaminophen (Tylenol -) 650 mg PO Q6H PRN PRN Reason: PAIN Last Admin: 11/20/16 21:50 Dose: 650 mg Albuterol/Ipratropium (Duoneb -) 1 amp NEB QIDR [facility] Last Admin: 11/22/16 11:00 Dose: 1 amp Aspirin (Ecotrin -) 81 mg PO DAILY [facility] Last Admin: 11/22/16 09:29 Dose: 81 mg Atorvastatin Calcium (Lipitor -) 10 mg PO HS [facility] Last Admin: 11/21/16 21:46 Dose: 10 mg Carvedilol (Coreg -) 12.5 mg PO BID [facility] Last Admin: 11/22/16 09:29 Dose: 12.5 mg Clopidogrel Bisulfate (Plavix -) 75 mg PO DAILY [facility] Last Admin: 11/22/16 09:29 Dose: 75 mg Docusate Sodium (Colace -) 100 mg PO DAILY [facility] Last Admin: 11/22/16 09:29 Dose: 100 mg Donepezil HCl (Aricept -) 5 mg PO DAILY [facility] Last Admin: 11/22/16 09:28 Dose: 5 mg Ergocalciferol (Drisdol -) 50,000 unit PO Q7D@1000 [facility] Ferrous Sulfate (Feosol -) 325 mg PO DAILY [facility] Last Admin: 11/22/16 09:29 Dose: 325 mg Finasteride (Proscar -) 5 mg PO DAILY [facility] Last Admin: 11/22/16 09:28 Dose: 5 mg Furosemide (Lasix Injection -) 40 mg IVPB BID@0600,1400 [facility] Last Admin: 11/22/16 06:52 Dose: 40 mg Gabapentin (Neurontin -) 300 mg PO BID [facility] Last Admin: 11/22/16 09:28 Dose: 300 mg Insulin Aspart (Novolog Vial Sliding Scale -) 0 vial SQ ACHS [facility] PRN Reason: Protocol Last Admin: 11/22/16 11:40 Dose: 4 units Isosorbide Mononitrate (Imdur -) 30 mg PO DAILY [facility] Last Admin: 11/22/16 09:28 Dose: 30 mg Levetiracetam (Keppra -) 1,000 mg PO BID [facility] Last Admin: 11/22/16 09:29 Dose: 1,000 mg Lisinopril (Prinivil) 10 mg PO DAILY [facility] Last Admin: 11/22/16 09:30 Dose: 10 mg Mirtazapine (Remeron -) 15 mg PO HS [facility] Last Admin: 11/21/16 21:47 Dose: 15 mg Nifedipine (Procardia Xl -) 60 mg PO DAILY [facility] Last Admin: 11/22/16 10:38 Dose: 60 mg Non-Formulary Medication (Insulin Degludec [Tresiba Flextouch U-100]) 42 unit SQ DAILY [facility] Non-Formulary Medication (Lidocaine [Aspercreme]) 1 each TP DAILY [facility] Oxycodone HCl (Roxicodone -) 10 mg PO Q6H PRN PRN Reason: PAIN Pantoprazole Sodium (Protonix -) 40 mg PO DAILY [facility] Last Admin: 11/22/16 09:30 Dose: 40 mg Ranitidine HCl (Zantac -) 150 mg PO BID [facility] Last Admin: 11/22/16 09:28 Dose: 150 mg Spironolactone (Aldactone -) 25 mg PO DAILY [facility] Last Admin: 11/22/16 09:30 Dose: 25 mg Tamsulosin HCl (Flomax -) 0.4 mg PO DAILY [facility] Last Admin: 11/22/16 09:30 Dose: 0.4 mg Tolnaftate (Tinactin 1% Cream -) 1 applic TP BID [facility] Last Admin: 11/22/16 09:31 Dose: 1 applic - Objective Vital Signs: Vital Signs Temperature 98.1 F 11/22/16 10:00 Pulse Rate 69 11/22/16 10:00 Respiratory Rate 18 11/22/16 10:00 Blood Pressure 159/71 11/22/16 10:00 O2 Sat by Pulse Oximetry (%) 94 L 11/21/16 21:00 Constitutional: Yes: Well Nourished, Calm Eyes: Yes: WNL HENT: Yes: WNL Neck: Yes: WNL Cardiovascular: Yes: Regular Rate and Rhythm, S1, S2 Respiratory: Yes: Rales (bibasilar crackles) Gastrointestinal: Yes: Normal Bowel Sounds, Soft Extremities: Yes: WNL Edema: No Labs: CBC, BMP 11/22/16 06:30 11/22/16 06:30 INR, PTT INR 1.22 (0.82-1.09) H 11/18/16 18:10 Problem List - Problems (1) Altered mental status Code(s): R41.82 - ALTERED MENTAL STATUS, UNSPECIFIED Qualifiers: Altered mental status type: disorientation Qualified Code(s): R41.0 - Disorientation, unspecified (2) CHF exacerbation Code(s): I50.9 - HEART FAILURE, UNSPECIFIED Qualifiers: Congestive heart failure type: unspecified congestive heart failure type Qualified Code(s): I50.9 - Heart failure, unspecified (3) Chronic systolic CHF (congestive heart failure) Code(s): I50.22 - CHRONIC SYSTOLIC (CONGESTIVE) HEART FAILURE (4) Dementia Code(s): F03.90 - UNSPECIFIED DEMENTIA WITHOUT BEHAVIORAL DISTURBANCE Qualifiers: Dementia behavioral disturbance: without behavioral disturbance (5) Difficulty breathing Code(s): R06.89 - OTHER ABNORMALITIES OF BREATHING (6) Pacemaker Code(s): Z95.0 - PRESENCE OF CARDIAC PACEMAKER (7) Seizure Code(s): R56.9 - UNSPECIFIED CONVULSIONS (8) Stented coronary artery Code(s): Z95.5 - PRESENCE OF CORONARY ANGIOPLASTY IMPLANT AND GRAFT (9) Acute on chronic renal insufficiency Code(s): N28.9 - DISORDER OF KIDNEY AND URETER, UNSPECIFIED N18.9 - CHRONIC KIDNEY DISEASE, UNSPECIFIED (10) Acute on chronic respiratory failure with hypoxia and hypercapnia Code(s): J96.21 - ACUTE AND CHRONIC RESPIRATORY FAILURE WITH HYPOXIA J96.22 - ACUTE AND CHRONIC RESPIRATORY FAILURE WITH HYPERCAPNIA (11) Acute on chronic systolic (congestive) heart failure Code(s): I50.23 - ACUTE ON CHRONIC SYSTOLIC (CONGESTIVE) HEART FAILURE (12) CKD (chronic kidney disease) Code(s): N18.9 - CHRONIC KIDNEY DISEASE, UNSPECIFIED (13) COPD (chronic obstructive pulmonary disease) Code(s): J44.9 - CHRONIC OBSTRUCTIVE PULMONARY DISEASE, UNSPECIFIED (14) CVA (cerebral infarction) Code(s): I63.9 - CEREBRAL INFARCTION, UNSPECIFIED Qualifiers: Cerebral infarction mechanism: unspecified mechanism Qualified Code(s) : I63.9 - Cerebral infarction, unspecified (15) Diabetes mellitus Code(s): E11.9 - TYPE 2 DIABETES MELLITUS WITHOUT COMPLICATIONS Qualifiers: Diabetes mellitus type: type 1 Diabetes mellitus complication status: with hyperglycemia Qualified Code(s): E10.65 - Type 1 diabetes mellitus with hyperglycemia (16) GERD (gastroesophageal reflux disease) Code(s): K21.9 - GASTRO-ESOPHAGEAL REFLUX DISEASE WITHOUT ESOPHAGITIS (17) HLD (hyperlipidemia) Code(s): E78.5 - HYPERLIPIDEMIA, UNSPECIFIED (18) HTN (hypertension) Code(s): I10 - ESSENTIAL (PRIMARY) HYPERTENSION Qualifiers: Hypertension type: essential hypertension Qualified Code(s): I10 - Essential (primary) hypertension (19) Paroxysmal atrial fibrillation Code(s): I48.0 - PAROXYSMAL ATRIAL FIBRILLATION Assessment/Plan IMP: (1) Acute on chronic renal failure Code(s): N17.9 - ACUTE KIDNEY FAILURE, UNSPECIFIED N18.9 - CHRONIC KIDNEY DISEASE, UNSPECIFIED (2) Altered mental status Code(s): R41.82 - ALTERED MENTAL STATUS, UNSPECIFIED Qualifiers: Altered mental status type: disorientation Qualified Code(s): R41.0 - Disorientation, unspecified (3) CHF exacerbation Code(s): I50.9 - HEART FAILURE, UNSPECIFIED Qualifiers: Congestive heart failure type: unspecified congestive heart failure type Qualified Code(s): I50.9 - Heart failure, unspecified (4) Chronic systolic CHF (congestive heart failure) Code(s): I50.22 - CHRONIC SYSTOLIC (CONGESTIVE) HEART FAILURE IMP: Acute Respiratory Failure requiring NIPPV improved Dementia CVA with right weakness A-fib w/ pacemaker DM CKD COPD HTN CHF HLD Epilepsy AMI S/P PCI PLAN: cont.Lasix NIPPV prn O2 BD TX PRN Aspiration precautions Daily weights Antiplatelets Statin Keppra GI / VTE prophylaxis DR TORRES
[2016-11-22] MEDS ORDERED: FUROSEMIDE 40 MG/4 ML INJECTABLE VIAL IVPUSH ONE (14:40)
[2016-11-22 14:48] LABS: ARTERIAL BLOOD GAS BASE EXCESS 7.5 meq/l (-2-2); ARTERIAL BLOOD GAS PO2 92.8 mmHg (70-100)
[2016-11-22 14:49] LABS: ALLENS TEST POSITIVE; ART PUNCT SITE RIGHT RADIAL; LPM/O2% 2
[2016-11-22 14:50] LABS: PT. ON O2? YES; TYPE OF O2 N/C
--- NOTE | 2016-11-22 15:07 | RAPID ---
Physical Examination Vital Signs: Vital Signs Findings/Remarks: RAPID RESPONSE NOTE: rapid response called by RN after family noticed patient twitching and he became unresponsive patient has a history of seizures and recently had medications adjusted on this admission patient is afebrile BP 135's/76's HR 65 saturation 81% on 4L NC Blood glucose >250 Telemetry strip showed a run of A-flutter followed by run of V tach Gen: lying in bed initially lethargic and unresponsive now awake CV: RRR +JVD Resp: Crackles bilaterally ABD: soft nt/nd Neuro: 5/5 muscle strength on left side. Right side 3/5 strength-at baseline per family from a prior CVA. 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 Wagner contacted and aware No Head CT needed at this time as CVA is unlikely and given his history and presentation this is likely a Seizure with a post ictal period. If the patient does require imaging he would need MRI of the brain Labs: CBC, BMP 11/22/16 06:30 11/22/16 06:30
--- NOTE | 2016-11-22 15:22 | PN ---
Progress Note, Physician Chief Complaint: AWAKE ALERT X 2 BIPAP ON FAMILY BEDSIDE EVENTS REVIEWED S/P RAPID RESPONSE - Current Medication List Current Medications: Active Medications Acetaminophen (Tylenol -) 650 mg PO Q6H PRN PRN Reason: PAIN Last Admin: 11/20/16 21:50 Dose: 650 mg Albuterol/Ipratropium (Duoneb -) 1 amp NEB QIDR [facility] Last Admin: 11/22/16 11:00 Dose: 1 amp Aspirin (Ecotrin -) 81 mg PO DAILY [facility] Last Admin: 11/22/16 09:29 Dose: 81 mg Atorvastatin Calcium (Lipitor -) 10 mg PO HS [facility] Last Admin: 11/21/16 21:46 Dose: 10 mg Carvedilol (Coreg -) 12.5 mg PO BID [facility] Last Admin: 11/22/16 09:29 Dose: 12.5 mg Clopidogrel Bisulfate (Plavix -) 75 mg PO DAILY [facility] Last Admin: 11/22/16 09:29 Dose: 75 mg Docusate Sodium (Colace -) 100 mg PO DAILY [facility] Last Admin: 11/22/16 09:29 Dose: 100 mg Donepezil HCl (Aricept -) 5 mg PO DAILY [facility] Last Admin: 11/22/16 09:28 Dose: 5 mg Ergocalciferol (Drisdol -) 50,000 unit PO Q7D@1000 [facility] Ferrous Sulfate (Feosol -) 325 mg PO DAILY [facility] Last Admin: 11/22/16 09:29 Dose: 325 mg Finasteride (Proscar -) 5 mg PO DAILY [facility] Last Admin: 11/22/16 09:28 Dose: 5 mg Furosemide (Lasix Injection -) 40 mg IVPB BID@0600,1400 [facility] Last Admin: 11/22/16 06:52 Dose: 40 mg Gabapentin (Neurontin -) 300 mg PO BID [facility] Last Admin: 11/22/16 09:28 Dose: 300 mg Insulin Aspart (Novolog Vial Sliding Scale -) 0 vial SQ ACHS [facility] PRN Reason: Protocol Last Admin: 11/22/16 11:40 Dose: 4 units Isosorbide Mononitrate (Imdur -) 30 mg PO DAILY [facility] Last Admin: 11/22/16 09:28 Dose: 30 mg Levetiracetam (Keppra -) 1,000 mg PO BID [facility] Last Admin: 11/22/16 09:29 Dose: 1,000 mg Lisinopril (Prinivil) 10 mg PO DAILY [facility] Last Admin: 11/22/16 09:30 Dose: 10 mg Mirtazapine (Remeron -) 15 mg PO HS [facility] Last Admin: 11/21/16 21:47 Dose: 15 mg Nifedipine (Procardia Xl -) 60 mg PO DAILY [facility] Last Admin: 11/22/16 10:38 Dose: 60 mg Non-Formulary Medication (Insulin Degludec [Tresiba Flextouch U-100]) 42 unit SQ DAILY [facility] Non-Formulary Medication (Lidocaine [Aspercreme]) 1 each TP DAILY [facility] Oxycodone HCl (Roxicodone -) 10 mg PO Q6H PRN PRN Reason: PAIN Pantoprazole Sodium (Protonix -) 40 mg PO DAILY [facility] Last Admin: 11/22/16 09:30 Dose: 40 mg Ranitidine HCl (Zantac -) 150 mg PO BID [facility] Last Admin: 11/22/16 09:28 Dose: 150 mg Spironolactone (Aldactone -) 25 mg PO DAILY [facility] Last Admin: 11/22/16 09:30 Dose: 25 mg Tamsulosin HCl (Flomax -) 0.4 mg PO DAILY [facility] Last Admin: 11/22/16 09:30 Dose: 0.4 mg Tolnaftate (Tinactin 1% Cream -) 1 applic TP BID [facility] Last Admin: 11/22/16 09:31 Dose: 1 applic - Objective Vital Signs: Vital Signs Temperature 98.1 F 11/22/16 10:00 Pulse Rate 69 11/22/16 10:00 Respiratory Rate 18 11/22/16 10:00 Blood Pressure 159/71 11/22/16 10:00 O2 Sat by Pulse Oximetry (%) 94 L 11/21/16 21:00 Constitutional: Yes: Severe Distress Eyes: Yes: Other HENT: Yes: WNL Neck: Yes: WNL Cardiovascular: Yes: Pulse Irregular, Murmur Respiratory: Yes: Diminished, On BiPap Gastrointestinal: Yes: WNL Genitourinary: Yes: Metcalf Present Musculoskeletal: Yes: Muscle Weakness Extremities: Yes: Other Edema: Yes Edema: LLE: 1+, RLE: 1+ Peripheral Pulses WNL: Yes Integumentary: Yes: WNL Wound/Incision: Yes: Clean/Dry Neurological: Yes: Seizure, Weakness ...Motor Strength: RLE Psychiatric: Yes: Other Labs: CBC, BMP 11/22/16 06:30 11/22/16 06:30 INR, PTT INR 1.22 (0.82-1.09) H 11/18/16 18:10 Problem List - Problems (1) Acute on chronic renal failure Code(s): N17.9 - ACUTE KIDNEY FAILURE, UNSPECIFIED N18.9 - CHRONIC KIDNEY DISEASE, UNSPECIFIED (2) Altered mental status Code(s): R41.82 - ALTERED MENTAL STATUS, UNSPECIFIED Qualifiers: Altered mental status type: disorientation Qualified Code(s): R41.0 - Disorientation, unspecified (3) Atrial flutter Code(s): I48.92 - UNSPECIFIED ATRIAL FLUTTER Qualifiers: (4) Atypical chest pain Code(s): R07.89 - OTHER CHEST PAIN (5) CHF exacerbation Code(s): I50.9 - HEART FAILURE, UNSPECIFIED Qualifiers: Congestive heart failure type: unspecified congestive heart failure type Qualified Code(s): I50.9 - Heart failure, unspecified (6) Chronic systolic CHF (congestive heart failure) Code(s): I50.22 - CHRONIC SYSTOLIC (CONGESTIVE) HEART FAILURE (7) Delirium Code(s): R41.0 - DISORIENTATION, UNSPECIFIED (8) Epilepsy Code(s): G40.909 - EPILEPSY, UNSP, NOT INTRACTABLE, WITHOUT STATUS EPILEPTICUS (9) Acute respiratory disease Code(s): J06.9 - ACUTE UPPER RESPIRATORY INFECTION, UNSPECIFIED (10) Need for rapid response team activation Code(s): [id number] - Assessment/Plan RAPID RESPONSE CALLED SEIZURE VS TIA? NEUROLOGY EVAL NO SIGNIFICANT TELEMETRY ALARMS WILL F/U LABS FAMILY BEDSIDE AWARE AND DISCUSSED CASE FOR 25MINS
--- NOTE | 2016-11-22 15:49 | PN ---
Progress Note, Physician History of Present Illness: Pt seen and examined at bedside. He is awake and appears comfortable. His mental status however is not at baseline. - Current Medication List Current Medications: Active Medications Acetaminophen (Tylenol -) 650 mg PO Q6H PRN PRN Reason: PAIN Last Admin: 11/20/16 21:50 Dose: 650 mg Albuterol/Ipratropium (Duoneb -) 1 amp NEB QIDR [facility] Last Admin: 11/22/16 11:00 Dose: 1 amp Aspirin (Ecotrin -) 81 mg PO DAILY [facility] Last Admin: 11/22/16 09:29 Dose: 81 mg Atorvastatin Calcium (Lipitor -) 10 mg PO HS [facility] Last Admin: 11/21/16 21:46 Dose: 10 mg Carvedilol (Coreg -) 12.5 mg PO BID [facility] Last Admin: 11/22/16 09:29 Dose: 12.5 mg Clopidogrel Bisulfate (Plavix -) 75 mg PO DAILY [facility] Last Admin: 11/22/16 09:29 Dose: 75 mg Docusate Sodium (Colace -) 100 mg PO DAILY [facility] Last Admin: 11/22/16 09:29 Dose: 100 mg Donepezil HCl (Aricept -) 5 mg PO DAILY [facility] Last Admin: 11/22/16 09:28 Dose: 5 mg Ergocalciferol (Drisdol -) 50,000 unit PO Q7D@1000 [facility] Ferrous Sulfate (Feosol -) 325 mg PO DAILY [facility] Last Admin: 11/22/16 09:29 Dose: 325 mg Finasteride (Proscar -) 5 mg PO DAILY [facility] Last Admin: 11/22/16 09:28 Dose: 5 mg Furosemide (Lasix Injection -) 40 mg IVPB BID@0600,1400 [facility] Last Admin: 11/22/16 06:52 Dose: 40 mg Gabapentin (Neurontin -) 300 mg PO BID [facility] Last Admin: 11/22/16 09:28 Dose: 300 mg Insulin Aspart (Novolog Vial Sliding Scale -) 0 vial SQ ACHS [facility] PRN Reason: Protocol Last Admin: 11/22/16 11:40 Dose: 4 units Isosorbide Mononitrate (Imdur -) 30 mg PO DAILY [facility] Last Admin: 11/22/16 09:28 Dose: 30 mg Levetiracetam (Keppra -) 1,000 mg PO BID [facility] Last Admin: 11/22/16 09:29 Dose: 1,000 mg Lisinopril (Prinivil) 10 mg PO DAILY [facility] Last Admin: 11/22/16 09:30 Dose: 10 mg Mirtazapine (Remeron -) 15 mg PO HS [facility] Last Admin: 11/21/16 21:47 Dose: 15 mg Nifedipine (Procardia Xl -) 60 mg PO DAILY [facility] Last Admin: 11/22/16 10:38 Dose: 60 mg Non-Formulary Medication (Insulin Degludec [Tresiba Flextouch U-100]) 42 unit SQ DAILY [facility] Non-Formulary Medication (Lidocaine [Aspercreme]) 1 each TP DAILY [facility] Oxycodone HCl (Roxicodone -) 10 mg PO Q6H PRN PRN Reason: PAIN Pantoprazole Sodium (Protonix -) 40 mg PO DAILY [facility] Last Admin: 11/22/16 09:30 Dose: 40 mg Ranitidine HCl (Zantac -) 150 mg PO BID [facility] Last Admin: 11/22/16 09:28 Dose: 150 mg Spironolactone (Aldactone -) 25 mg PO DAILY [facility] Last Admin: 11/22/16 09:30 Dose: 25 mg Tamsulosin HCl (Flomax -) 0.4 mg PO DAILY [facility] Last Admin: 11/22/16 09:30 Dose: 0.4 mg Tolnaftate (Tinactin 1% Cream -) 1 applic TP BID [facility] Last Admin: 11/22/16 09:31 Dose: 1 applic - Objective Vital Signs: Vital Signs Temperature 98.1 F 11/22/16 10:00 Pulse Rate 69 11/22/16 10:00 Respiratory Rate 18 11/22/16 10:00 Blood Pressure 159/71 11/22/16 10:00 O2 Sat by Pulse Oximetry (%) 94 L 11/21/16 21:00 Constitutional: Yes: Calm Eyes: Yes: Conjunctiva Clear HENT: Yes: Atraumatic Cardiovascular: Yes: S1, S2 Respiratory: Yes: CTA Bilaterally, On Nasal O2 Gastrointestinal: Yes: Soft Genitourinary: Yes: Metcalf Present Musculoskeletal: Yes: Muscle Weakness Edema: No Neurological: Yes: Oriented Labs: CBC, BMP 11/22/16 06:30 11/22/16 06:30 INR, PTT INR 1.22 (0.82-1.09) H 11/18/16 18:10 Problem List - Problems (1) Chronic systolic CHF (congestive heart failure) Code(s): I50.22 - CHRONIC SYSTOLIC (CONGESTIVE) HEART FAILURE (2) Epilepsy Code(s): G40.909 - EPILEPSY, UNSP, NOT INTRACTABLE, WITHOUT STATUS EPILEPTICUS (3) CKD (chronic kidney disease) Code(s): N18.9 - CHRONIC KIDNEY DISEASE, UNSPECIFIED Assessment/Plan Current Medications Generic Name Dose Route Start Last Admin Trade Name Freq PRN Reason Stop Dose Admin Acetaminophen 650 mg 11/18/16 20:03 11/20/16 21:50 Tylenol - PO 650 mg Q6H PRN Administration PAIN Albuterol/Ipratropium 1 amp 11/19/16 00:30 11/22/16 11:00 Duoneb - NEB 1 amp QIDR [facility] Administration Aspirin 81 mg 11/19/16 10:00 11/22/16 09:29 Ecotrin - PO 81 mg DAILY [facility] Administration Atorvastatin Calcium 10 mg 11/18/16 22:00 11/21/16 21:46 Lipitor - PO 10 mg HS [facility] Administration Carvedilol 12.5 mg 11/18/16 22:00 11/22/16 09:29 Coreg - PO 12.5 mg BID [facility] Administration Clopidogrel Bisulfate 75 mg 11/19/16 10:00 11/22/16 09:29 Plavix - PO 75 mg DAILY [facility] Administration Docusate Sodium 100 mg 11/19/16 10:00 11/22/16 09:29 Colace - PO 100 mg DAILY [facility] Administration Donepezil HCl 5 mg 11/19/16 10:00 11/22/16 09:28 Aricept - PO 5 mg DAILY [facility] Administration Ergocalciferol 50,000 unit 11/25/16 10:00 Drisdol - PO Q7D@1000 [facility] Ferrous Sulfate 325 mg 11/21/16 10:00 11/22/16 09:29 Feosol - PO 325 mg DAILY [facility] Administration Finasteride 5 mg 11/19/16 10:00 11/22/16 09:28 Proscar - PO 5 mg DAILY [facility] Administration Furosemide 40 mg 11/19/16 14:00 11/22/16 06:52 Lasix Injection - IVPB 40 mg BID@0600,1400 [facility] Administration Gabapentin 300 mg 11/18/16 22:00 11/22/16 09:28 Neurontin - PO 300 mg BID [facility] Administration Insulin Aspart 0 vial 11/18/16 22:00 11/22/16 11:40 Novolog Vial Sliding Scale - SQ 4 units ACHS [facility] Administration Protocol Isosorbide Mononitrate 30 mg 11/19/16 10:00 11/22/16 09:28 Imdur - PO 30 mg DAILY [facility] Administration Levetiracetam 1,000 mg 11/18/16 22:00 11/22/16 09:29 Keppra - PO 1,000 mg BID [facility] Administration Lisinopril 10 mg 11/19/16 10:00 11/22/16 09:30 Prinivil PO 10 mg DAILY [facility] Administration Mirtazapine 15 mg 11/18/16 22:00 11/21/16 21:47 Remeron - PO 15 mg HS [facility] Administration Nifedipine 60 mg 11/19/16 10:00 11/22/16 10:38 Procardia Xl - PO 60 mg DAILY [facility] Administration Non-Formulary Medication 42 unit 11/19/16 10:00 Insulin Degludec [Tresiba Flextouch U-100] SQ DAILY [facility] Non-Formulary Medication 1 each 11/19/16 10:00 Lidocaine [Aspercreme] TP DAILY [facility] Oxycodone HCl 10 mg 11/18/16 20:03 Roxicodone - PO Q6H PRN PAIN Pantoprazole Sodium 40 mg 11/19/16 10:00 11/22/16 09:30 Protonix - PO 40 mg DAILY [facility] Administration Ranitidine HCl 150 mg 11/18/16 22:00 11/22/16 09:28 Zantac - PO 150 mg BID [facility] Administration Spironolactone 25 mg 11/19/16 10:00 11/22/16 09:30 Aldactone - PO 25 mg DAILY [facility] Administration Tamsulosin HCl 0.4 mg 11/19/16 10:00 11/22/16 09:30 Flomax - PO 0.4 mg DAILY [facility] Administration Tolnaftate 1 applic 11/18/16 22:00 11/22/16 09:31 Tinactin 1% Cream - TP 1 applic BID [facility] Administration Impression 1. CKD 2. seizure 3. hx CVA 4. DM 5. epilepsy 6. hyperlipidemia 7. hx anemia 8. hx a-fib 9. hypokalemia 10. CAD 11. acute CHF Plan - cont with diuretics - volume status is improved - cont with michael - discussed care with pts family - will follow closely - CKD likely from DM and HTN Dr Jc
[2016-11-22 18:21] LABS: BASOPHIL 0.5 % (0-2.0); EOSINOPHIL 5.3 % (0-4.5); MCH 24.5 pg (25.7-33.7); MCHC 31.1 g/dl (32.0-35.9); MEAN CELL VOLUME 78.6 fl (80-96); MEAN PLT VOLUME 8.4 fl (7.5-11.1); NEUTROPHILS 69.2 % (42.8-82.8); PLATELET COUNT 220 K/MM3 (134-434); RDW 20.4 % (11.9-15.9); WHITE BLOOD COUNT 5.8 K/mm3 (4.0-10.0)
[2016-11-22 18:26] LABS: MAGNESIUM 2.1 mg/dL (1.8-2.4)
[2016-11-22 18:46] LABS: TROPONIN I 0.71 ng/ml (0.00-0.05)
[2016-11-22] MEDS ORDERED: levETIRAcetam 500 MG TABLET (FP) PO ONE (21:39)
[2016-11-22] MEDS ORDERED: levETIRAcetam 250 MG TABLET (FP) PO ONE (21:40)
[2016-11-22] MEDS: ATORVASTATIN CA 10 MG TABLET (FP) PO SCH (21:43)
[2016-11-22] MEDS: LEVETIRACETAM PO SCH (21:43)
[2016-11-22] MEDS: MIRTAZAPINE 15 MG TABLET (FP) PO SCH (21:43)
[2016-11-23] MEDS: ALBUTEROL SO4 2.5/IPRATROPIUM 0.5 INH SOL 3 ML VIAL.NEB. NEB SCH ×5 (00:12→23:34)
[2016-11-23] MEDS: INSULIN SLIDING SCALE (NOVOLOG) 1 VIAL SQ SCH ×4 (05:59→21:26)
[2016-11-23] MEDS: FUROSEMIDE 40 MG/4 ML INJECTABLE VIAL IVPB SCH ×2 (05:59→14:59)
--- NOTE | 2016-11-23 08:15 | EKG ---
Test Reason : Blood Pressure : / mmHG Vent. Rate : 060 BPM Atrial Rate : 312 BPM P-R Int : 000 ms QRS Dur : 186 ms QT Int : 502 ms P-R-T Axes : 000 -67 104 degrees QTc Int : 502 ms Ventricular-paced rhythm UNDERLYING ATRIAL FLUTTER ABNORMAL ECG WHEN COMPARED WITH ECG OF 19-NOV-2016 01:39, ATRIAL FLUTTER IS SEEN Confirmed by MURPHY ZELAYA MD ([id number]) on 11/23/2016 8:14:23 AM Referred By: Confirmed By:MURPHY ZELAYA MD
[2016-11-23 08:21] LABS: CALCIUM 8.2 mg/dL (8.5-10.1); COCKROFT - GAULT 35.4; CREATININE 2.1 mg/dL (0.7-1.3); PHOSPHOROUS 2.6 mg/dL (2.5-4.9)
[2016-11-23] MEDS ORDERED: levETIRAcetam 250 MG TABLET (FP) PO ONE (09:06)
[2016-11-23] MEDS ORDERED: levETIRAcetam 500 MG TABLET (FP) PO ONE (09:06)
[2016-11-23] MEDS ORDERED: PT OWN MED DRAWER 7, Y5N ONE (09:07)
[2016-11-23] MEDS: TOLNAFTATE 1% CREAM 15 GM TUBE TP SCH ×2 (09:16→21:27)
[2016-11-23] MEDS: TAMSULOSIN HCL 0.4 MG CAP.ER.24H (FP) PO SCH (09:16)
[2016-11-23] MEDS: CARVEDILOL 6.25 MG TABLET (FP) PO SCH ×2 (09:17→21:26)
[2016-11-23] MEDS: FERROUS SO4 325 MG TABLET (FP) PO SCH (09:18)
[2016-11-23] MEDS: ASPIRIN COATED 81 MG TABLET.EC PO SCH (09:18)
[2016-11-23] MEDS: DOCUSATE SODIUM 100 MG CAPSULE (FP) PO SCH (09:18)
[2016-11-23] MEDS: RANITIDINE HCL 150 MG TABLET (FP) PO SCH ×2 (09:18→21:25)
[2016-11-23] MEDS: SPIRONOLACTONE 25 MG TABLET (FP) PO SCH (09:18)
[2016-11-23] MEDS: CLOPIDOGREL BISULFATE 75 MG TABLET (FP) PO SCH (09:18)
[2016-11-23] MEDS: NIFEdipine E.R. 30 MG TABLET (FP) PO SCH (09:18)
[2016-11-23] MEDS: LEVETIRACETAM PO SCH (09:18)
[2016-11-23] MEDS: FINASTERIDE 5 MG TABLET (FP) PO SCH (09:19)
[2016-11-23] MEDS: ISOSORBIDE MONONITRATE 30 MG TAB.SR.24H (FP) PO SCH (09:19)
[2016-11-23] MEDS: LISINOPRIL 10 MG TABLET (FP) PO SCH (09:19)
[2016-11-23] MEDS: PANTOPRAZOLE 40 MG TABLET (FP) PO SCH (09:19)
[2016-11-23] MEDS: DONEPEZIL HCL 10 MG TABLET (FP) PO SCH (09:19)
[2016-11-23] MEDS: GABAPENTIN 300 MG CAPSULE (FP) PO SCH ×2 (09:31→21:26)
--- NOTE | 2016-11-23 10:22 | PN ---
Progress Note, Physician Chief Complaint: AWAKE ALERT DENIES CHEST PAIN SOME SOB ON - Current Medication List Current Medications: Active Medications Acetaminophen (Tylenol -) 650 mg PO Q6H PRN PRN Reason: PAIN Last Admin: 11/20/16 21:50 Dose: 650 mg Albuterol/Ipratropium (Duoneb -) 1 amp NEB QIDR [facility] Last Admin: 11/23/16 06:40 Dose: 1 amp Aspirin (Ecotrin -) 81 mg PO DAILY [facility] Last Admin: 11/23/16 09:18 Dose: 81 mg Atorvastatin Calcium (Lipitor -) 10 mg PO HS [facility] Last Admin: 11/22/16 21:43 Dose: 10 mg Carvedilol (Coreg -) 12.5 mg PO BID [facility] Last Admin: 11/23/16 09:17 Dose: 12.5 mg Clopidogrel Bisulfate (Plavix -) 75 mg PO DAILY [facility] Last Admin: 11/23/16 09:18 Dose: 75 mg Docusate Sodium (Colace -) 100 mg PO DAILY [facility] Last Admin: 11/23/16 09:18 Dose: 100 mg Donepezil HCl (Aricept -) 5 mg PO DAILY [facility] Last Admin: 11/23/16 09:19 Dose: 5 mg Ergocalciferol (Drisdol -) 50,000 unit PO Q7D@1000 [facility] Ferrous Sulfate (Feosol -) 325 mg PO DAILY [facility] Last Admin: 11/23/16 09:18 Dose: 325 mg Finasteride (Proscar -) 5 mg PO DAILY [facility] Last Admin: 11/23/16 09:19 Dose: 5 mg Furosemide (Lasix Injection -) 40 mg IVPB BID@0600,1400 [facility] Last Admin: 11/23/16 05:59 Dose: 40 mg Gabapentin (Neurontin -) 300 mg PO BID [facility] Last Admin: 11/23/16 09:31 Dose: 300 mg Insulin Aspart (Novolog Vial Sliding Scale -) 0 vial SQ ACHS [facility] PRN Reason: Protocol Last Admin: 11/23/16 05:59 Dose: Not Given Insulin Detemir (Levemir Vial) 42 units SQ HS [facility] Isosorbide Mononitrate (Imdur -) 30 mg PO DAILY [facility] Last Admin: 11/23/16 09:19 Dose: 30 mg Levetiracetam 1,000 mg/ (Levetiracetam 250 mg) 1,250 mg PO BID [facility] Last Admin: 11/23/16 09:18 Dose: 1,250 mg Lisinopril (Prinivil) 10 mg PO DAILY [facility] Last Admin: 11/23/16 09:19 Dose: 10 mg Mirtazapine (Remeron -) 15 mg PO HS [facility] Last Admin: 11/22/16 21:43 Dose: 15 mg Nifedipine (Procardia Xl -) 60 mg PO DAILY [facility] Last Admin: 11/23/16 09:18 Dose: 60 mg Oxycodone HCl (Roxicodone -) 10 mg PO Q6H PRN PRN Reason: PAIN Pantoprazole Sodium (Protonix -) 40 mg PO DAILY [facility] Last Admin: 11/23/16 09:19 Dose: 40 mg Ranitidine HCl (Zantac -) 150 mg PO BID [facility] Last Admin: 11/23/16 09:18 Dose: 150 mg Spironolactone (Aldactone -) 25 mg PO DAILY [facility] Last Admin: 11/23/16 09:18 Dose: 25 mg Tamsulosin HCl (Flomax -) 0.4 mg PO DAILY [facility] Last Admin: 11/23/16 09:16 Dose: 0.4 mg Tolnaftate (Tinactin 1% Cream -) 1 applic TP BID [facility] Last Admin: 11/23/16 09:16 Dose: 1 applic - Objective Vital Signs: Vital Signs Temperature 98.1 F 11/23/16 06:00 Pulse Rate 75 11/23/16 06:00 Respiratory Rate 18 11/23/16 06:00 Blood Pressure 120/66 11/23/16 06:00 O2 Sat by Pulse Oximetry (%) 96 11/22/16 20:35 Constitutional: Yes: Mild Distress Eyes: Yes: WNL HENT: Yes: WNL Neck: Yes: WNL Cardiovascular: Yes: Pulse Irregular Respiratory: Yes: CTA Bilaterally, On Nasal O2, SOB Gastrointestinal: Yes: WNL Genitourinary: Yes: Metcalf Present, Incontinence Musculoskeletal: Yes: Muscle Weakness Extremities: Yes: Other Edema: Yes Edema: LLE: Trace, RLE: Trace Peripheral Pulses WNL: Yes Integumentary: Yes: WNL Wound/Incision: Yes: Clean/Dry Neurological: Yes: Pre-Existing Deficit, Weakness, Other ...Motor Strength: LLE, RLE Psychiatric: Yes: Other Labs: CBC, BMP 11/22/16 18:11 11/23/16 05:35 INR, PTT INR 1.22 (0.82-1.09) H 11/18/16 18:10 Problem List - Problems (1) Acute on chronic renal failure Code(s): N17.9 - ACUTE KIDNEY FAILURE, UNSPECIFIED N18.9 - CHRONIC KIDNEY DISEASE, UNSPECIFIED (2) Altered mental status Code(s): R41.82 - ALTERED MENTAL STATUS, UNSPECIFIED Qualifiers: Altered mental status type: disorientation Qualified Code(s): R41.0 - Disorientation, unspecified (3) Atrial flutter Code(s): I48.92 - UNSPECIFIED ATRIAL FLUTTER Qualifiers: (4) Atypical chest pain Code(s): R07.89 - OTHER CHEST PAIN (5) CHF exacerbation Code(s): I50.9 - HEART FAILURE, UNSPECIFIED Qualifiers: Congestive heart failure type: unspecified congestive heart failure type Qualified Code(s): I50.9 - Heart failure, unspecified (6) Chronic systolic CHF (congestive heart failure) Code(s): I50.22 - CHRONIC SYSTOLIC (CONGESTIVE) HEART FAILURE (7) Delirium Code(s): R41.0 - DISORIENTATION, UNSPECIFIED (8) Epilepsy Code(s): G40.909 - EPILEPSY, UNSP, NOT INTRACTABLE, WITHOUT STATUS EPILEPTICUS (9) Acute respiratory disease Code(s): J06.9 - ACUTE UPPER RESPIRATORY INFECTION, UNSPECIFIED (10) Need for rapid response team activation Code(s): [id number] - Assessment/Plan MORE [place] TODAY GOOD APPETITE CONTINUE DIURESIS NEUROLOGY EVAL CT HEAD NO ACUTE CHANGES DC PLANNING WHEN CARDIOLOGY CLEARS
--- NOTE | 2016-11-23 10:31 | PN ---
Progress Note (short form) - Note Progress Note: DISCUSSED WITH CARDIOLOGY DR MERCER, PATIENT NEEDS GUIDANCE ALONG WITH FAMILY HOW TO DEAL WITH CHRONIC CHF. MULTIPLE ADMISSIONS FOR CHF AND I TRIED DIETARY EVALS WITH SNF HOWEVER PATIENT AND FAMILY CALL 911 FOR EVERY EPISODE OF DYSPNEA/CHEST PAIN. IF FAMILY WANTS ALL MEDICAL OPTIMIZED THEY NEED A REFERRAL TO [facility] FOR CARDIAC VENTRICULAR DEVICE. Problem List - Problems (1) Acute on chronic renal failure Code(s): N17.9 - ACUTE KIDNEY FAILURE, UNSPECIFIED N18.9 - CHRONIC KIDNEY DISEASE, UNSPECIFIED (2) Altered mental status Code(s): R41.82 - ALTERED MENTAL STATUS, UNSPECIFIED Qualifiers: Altered mental status type: disorientation Qualified Code(s): R41.0 - Disorientation, unspecified (3) Atrial flutter Code(s): I48.92 - UNSPECIFIED ATRIAL FLUTTER Qualifiers: (4) Atypical chest pain Code(s): R07.89 - OTHER CHEST PAIN (5) CHF exacerbation Code(s): I50.9 - HEART FAILURE, UNSPECIFIED Qualifiers: Congestive heart failure type: unspecified congestive heart failure type Qualified Code(s): I50.9 - Heart failure, unspecified (6) Chronic systolic CHF (congestive heart failure) Code(s): I50.22 - CHRONIC SYSTOLIC (CONGESTIVE) HEART FAILURE (7) Delirium Code(s): R41.0 - DISORIENTATION, UNSPECIFIED (8) Epilepsy Code(s): G40.909 - EPILEPSY, UNSP, NOT INTRACTABLE, WITHOUT STATUS EPILEPTICUS (9) Acute respiratory disease Code(s): J06.9 - ACUTE UPPER RESPIRATORY INFECTION, UNSPECIFIED (10) Need for rapid response team activation Code(s): [id number] -
--- NOTE | 2016-11-23 10:50 | PN ---
Progress Note, Physician Chief Complaint: nad - Current Medication List Current Medications: Active Medications Acetaminophen (Tylenol -) 650 mg PO Q6H PRN PRN Reason: PAIN Last Admin: 11/20/16 21:50 Dose: 650 mg Albuterol/Ipratropium (Duoneb -) 1 amp NEB QIDR [facility] Last Admin: 11/23/16 06:40 Dose: 1 amp Aspirin (Ecotrin -) 81 mg PO DAILY [facility] Last Admin: 11/23/16 09:18 Dose: 81 mg Atorvastatin Calcium (Lipitor -) 10 mg PO HS [facility] Last Admin: 11/22/16 21:43 Dose: 10 mg Carvedilol (Coreg -) 12.5 mg PO BID [facility] Last Admin: 11/23/16 09:17 Dose: 12.5 mg Clopidogrel Bisulfate (Plavix -) 75 mg PO DAILY [facility] Last Admin: 11/23/16 09:18 Dose: 75 mg Docusate Sodium (Colace -) 100 mg PO DAILY [facility] Last Admin: 11/23/16 09:18 Dose: 100 mg Donepezil HCl (Aricept -) 5 mg PO DAILY [facility] Last Admin: 11/23/16 09:19 Dose: 5 mg Ergocalciferol (Drisdol -) 50,000 unit PO Q7D@1000 [facility] Ferrous Sulfate (Feosol -) 325 mg PO DAILY [facility] Last Admin: 11/23/16 09:18 Dose: 325 mg Finasteride (Proscar -) 5 mg PO DAILY [facility] Last Admin: 11/23/16 09:19 Dose: 5 mg Furosemide (Lasix Injection -) 40 mg IVPB BID@0600,1400 [facility] Last Admin: 11/23/16 05:59 Dose: 40 mg Gabapentin (Neurontin -) 300 mg PO BID [facility] Last Admin: 11/23/16 09:31 Dose: 300 mg Insulin Aspart (Novolog Vial Sliding Scale -) 0 vial SQ ACHS [facility] PRN Reason: Protocol Last Admin: 11/23/16 05:59 Dose: Not Given Insulin Detemir (Levemir Vial) 42 units SQ HS [facility] Isosorbide Mononitrate (Imdur -) 30 mg PO DAILY [facility] Last Admin: 11/23/16 09:19 Dose: 30 mg Levetiracetam 1,000 mg/ (Levetiracetam 250 mg) 1,250 mg PO BID [facility] Last Admin: 11/23/16 09:18 Dose: 1,250 mg Lisinopril (Prinivil) 10 mg PO DAILY [facility] Last Admin: 11/23/16 09:19 Dose: 10 mg Mirtazapine (Remeron -) 15 mg PO HS [facility] Last Admin: 11/22/16 21:43 Dose: 15 mg Nifedipine (Procardia Xl -) 60 mg PO DAILY [facility] Last Admin: 11/23/16 09:18 Dose: 60 mg Oxycodone HCl (Roxicodone -) 10 mg PO Q6H PRN PRN Reason: PAIN Pantoprazole Sodium (Protonix -) 40 mg PO DAILY [facility] Last Admin: 11/23/16 09:19 Dose: 40 mg Ranitidine HCl (Zantac -) 150 mg PO BID [facility] Last Admin: 11/23/16 09:18 Dose: 150 mg Spironolactone (Aldactone -) 25 mg PO DAILY [facility] Last Admin: 11/23/16 09:18 Dose: 25 mg Tamsulosin HCl (Flomax -) 0.4 mg PO DAILY [facility] Last Admin: 11/23/16 09:16 Dose: 0.4 mg Tolnaftate (Tinactin 1% Cream -) 1 applic TP BID [facility] Last Admin: 11/23/16 09:16 Dose: 1 applic - Objective Vital Signs: Vital Signs Temperature 98.7 F 11/23/16 10:00 Pulse Rate 73 11/23/16 10:00 Respiratory Rate 18 11/23/16 10:00 Blood Pressure 139/74 11/23/16 10:00 O2 Sat by Pulse Oximetry (%) 97 11/23/16 10:00 Eyes: Yes: WNL, Conjunctiva Clear, EOM Intact HENT: Yes: WNL, Atraumatic, Normocephalic Neck: Yes: WNL, Supple, Trachea Midline Cardiovascular: Yes: WNL, Regular Rate and Rhythm Respiratory: Yes: WNL, Regular, CTA Bilaterally Gastrointestinal: Yes: WNL, Normal Bowel Sounds Genitourinary: Yes: WNL Musculoskeletal: Yes: WNL Extremities: Yes: WNL Edema: No Integumentary: Yes: WNL Neurological: Yes: WNL, Alert, Oriented ...Motor Strength: WNL Psychiatric: Yes: WNL Labs: CBC, BMP 11/22/16 18:11 11/23/16 05:35 INR, PTT INR 1.22 (0.82-1.09) H 11/18/16 18:10 Assessment/Plan IMP: Acute on chronic systolic CHF CAD AF s/p PPM Acute on chronic renal failure Hypothermia REC: 1. CHF: -History moderate LV dysfx echo read as severe reduced ef, however EF calculated at 40% c/w prior studies. Will reevaluate when stable with MUGA scan. Will need evaluation by CHF clinic at [facility]. -Continue IV Lasix -Bipap as needed -suspect elevated TnI w/ Nl CK due to decompensated CHF in setting CKD --Cont Coreg and home meds -Daily lytes 2. CAD: -on ASA and Plavix -Suspect TnI elevated due to CHF -statin 3. AF: -s/p PPM -Not on full AC for unclear reasons (?seizures and falls risk?). On dual antiplatelet therapy for CAD -Will need to clarify details with Dr. Higgins 4. Acute on chronic RF: -Probably due to decompensated CHF -Creat may improve with diuresis, awaiting today's labs 5. Hypothermia: -cultures negative so far -Check TSH -Abx deferred to ICU team called last night for changes in MS telemetry reviewed. NO VT - motion artifacts present. Consider w/u for seizure.
--- NOTE | 2016-11-23 11:41 | CONSULT ---
Consult - text type - Consultation Consultation Note: Neurology History of Present Illness Patient is a 75 year old male, from [facility], with significant medical hx of dementia, CVA w/ right sided weakness, AFib, DM, CKD, COPD (s/p intubation 2005), CHF, HTN, HLD, and [place] s/p stents who is presenting to the ED for respiratory distress . Per family, the patient has been dyspneic that worsens when the patient lies flat; he was also noted to have an O2Sat of 78%. He is known to me as outpatient and has seizure disordered with EEGs showing focal slowing. He had rapid response yesterday and question of seizure. I recommended CT head and did not show changes. We increased Keppra to 1250 twice daily but keppra level at 100 and therefore should bring down doseage to 1000mg twice daily. Past History - Past Medical History Anemia: Yes Asthma: No Cancer: No Cardiac Disorders: Yes (mi 1992) 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)) COPD: No CHF: Yes Dementia: Yes Diabetes: Yes GI Disorders: Yes (Gastritis) Disorders: No HTN: Yes Hypercholesterolemia: Yes Liver Disease: No Suicide Attempt (Hx): No Seizures: Yes (epilepsy) Thyroid Disease: No - Surgical History Abdominal Surgery: Yes Appendectomy: No Cardiac Surgery: No Cholecystectomy: Yes Lung Surgery: No Neurologic Surgery: No Orthopedic Surgery: Yes (R HAND) - Immunization History Immunization Up to Date: No - Psycho/Social/Smoking Cessation Hx Anxiety: No Suicidal Ideation: No Smoking History: Never smoked Have you smoked in the past 12 months: No Number of Cigarettes Smoked Daily: 0 Hx Alcohol Use: No Drug/Substance Use Hx: No Substance Use Type: None Hx Substance Use Treatment: No - Past Medical History Allergies/Adverse Reactions: Allergies Allergy/AdvReac Type Severity Reaction Status Date / Time No Known Allergies Allergy Verified 11/18/16 18:10 Active Medications Acetaminophen (Tylenol -) 650 mg PO Q6H PRN PRN Reason: PAIN Last Admin: 11/20/16 21:50 Dose: 650 mg Albuterol/Ipratropium (Duoneb -) 1 amp NEB QIDR [facility] Last Admin: 11/23/16 11:37 Dose: 1 amp Aspirin (Ecotrin -) 81 mg PO DAILY [facility] Last Admin: 11/23/16 09:18 Dose: 81 mg Atorvastatin Calcium (Lipitor -) 10 mg PO HS [facility] Last Admin: 11/22/16 21:43 Dose: 10 mg Carvedilol (Coreg -) 12.5 mg PO BID [facility] Last Admin: 11/23/16 09:17 Dose: 12.5 mg Clopidogrel Bisulfate (Plavix -) 75 mg PO DAILY [facility] Last Admin: 11/23/16 09:18 Dose: 75 mg Docusate Sodium (Colace -) 100 mg PO DAILY [facility] Last Admin: 11/23/16 09:18 Dose: 100 mg Donepezil HCl (Aricept -) 5 mg PO DAILY [facility] Last Admin: 11/23/16 09:19 Dose: 5 mg Ergocalciferol (Drisdol -) 50,000 unit PO Q7D@1000 [facility] Ferrous Sulfate (Feosol -) 325 mg PO DAILY [facility] Last Admin: 11/23/16 09:18 Dose: 325 mg Finasteride (Proscar -) 5 mg PO DAILY [facility] Last Admin: 11/23/16 09:19 Dose: 5 mg Furosemide (Lasix Injection -) 40 mg IVPB BID@0600,1400 [facility] Last Admin: 11/23/16 05:59 Dose: 40 mg Gabapentin (Neurontin -) 300 mg PO BID [facility] Last Admin: 11/23/16 09:31 Dose: 300 mg Insulin Aspart (Novolog Vial Sliding Scale -) 0 vial SQ [facility] PRN Reason: Protocol Last Admin: 11/23/16 11:35 Dose: 4 units Insulin Detemir (Levemir Vial) 42 units SQ HS [facility] Isosorbide Mononitrate (Imdur -) 30 mg PO DAILY [facility] Last Admin: 11/23/16 09:19 Dose: 30 mg Levetiracetam 1,000 mg/ (Levetiracetam 250 mg) 1,250 mg PO BID [facility] Last Admin: 11/23/16 09:18 Dose: 1,250 mg Lisinopril (Prinivil) 10 mg PO DAILY [facility] Last Admin: 11/23/16 09:19 Dose: 10 mg Mirtazapine (Remeron -) 15 mg PO HS [facility] Last Admin: 11/22/16 21:43 Dose: 15 mg Nifedipine (Procardia Xl -) 60 mg PO DAILY [facility] Last Admin: 11/23/16 09:18 Dose: 60 mg Oxycodone HCl (Roxicodone -) 10 mg PO Q6H PRN PRN Reason: PAIN Pantoprazole Sodium (Protonix -) 40 mg PO DAILY [facility] Last Admin: 11/23/16 09:19 Dose: 40 mg Ranitidine HCl (Zantac -) 150 mg PO BID [facility] Last Admin: 11/23/16 09:18 Dose: 150 mg Spironolactone (Aldactone -) 25 mg PO DAILY [facility] Last Admin: 11/23/16 09:18 Dose: 25 mg Tamsulosin HCl (Flomax -) 0.4 mg PO DAILY [facility] Last Admin: 11/23/16 09:16 Dose: 0.4 mg Tolnaftate (Tinactin 1% Cream -) 1 applic TP BID [facility] Last Admin: 11/23/16 09:16 Dose: 1 applic Review of Systems GENERAL/CONSTITUTIONAL: No: fever, chills, weakness, loss of appetite. HEAD, EYES, EARS, NOSE AND THROAT: No: change in vision, ear pain, discharge, sore throat, throat swelling. CARDIOVASCULAR: No: chest pain, lightheadedness, palpitations, syncope RESPIRATORY: Yes: shortness of breath, cough, orthopnea. No: wheezing, hemoptysis, stridor. GASTROINTESTINAL: No: nausea, vomiting, abdominal cramping, diarrhea, rectal bleeding, constipation. GENITOURINARY: Yes: decreased urinary output. No: dysuria, hematuria, frequency , urgency, flank pain. MUSCULOSKELET AL: No: back pain, neck pain, joint pain, muscle swelling or pain SKIN AND BREASTS: No: lesions, pallor, rash or easy bruising. NEUROLOGIC: Yes: confusion, hallucinating. No: headache, vertigo, paresthesias, weakness ENDOCRINE: No: unexplained weight gain or loss HEMATOLOGIC/LYMPHATIC: No: anemia, easy bleeding, swelling nodes *Physical Exam Vital Signs Period Temp Pulse Resp BP Sys/Quevedo Pulse Ox Last 24 Hr 98.1 F-99.7 F 60-79 18-21 120-151/66-75 96-97 GENERAL: The patient is in no acute distress. HEAD: Normal with no signs of trauma. EYES: Fake right eye. Left PERRLA, left EOMI, sclera anicteric, conjunctiva clear. ENT: Ears normal, nares patent, oropharynx clear without exudates. Moist mucous membranes. NECK: Normal range of motion, supple without lymphadenopathy, JVD, or masses. LUNGS: Respiratory distress, tachypneic, decreased breath sounds at the bilateral bases. HEART: Regular rate and rhythm, normal S1 and S2 without murmur, rub or gallop. ABDOMEN: Soft, nontender, normoactive bowel sounds. No guarding, no rebound. EXTREMITIES: Normal range of motion, no edema. No clubbing or cyanosis. No erythema, or tenderness. NEUROLOGICAL: Cranial nerves II through XII grossly intact. Normal speech. No focal neurological deficits. CBCD WBC 5.8 K/mm3 (4.0-10.0) 11/22/16 18:11 RBC 3.75 M/mm3 (4.00-5.60) L 11/22/16 18:11 Hgb 9.2 GM/dL (11.7-16.9) L D 11/22/16 18:11 Hct 29.5 % (35.4-49) L 11/22/16 18:11 MCV 78.6 fl (80-96) L 11/22/16 18:11 MCHC 31.1 g/dl (32.0-35.9) L 11/22/16 18:11 RDW 20.4 % (11.9-15.9) H 11/22/16 18:11 Plt Count 220 K/MM3 (134-434) 11/22/16 18:11 MPV 8.4 fl (7.5-11.1) 11/22/16 18:11 CMP Sodium 142 mmol/L (136-145) 11/23/16 05:35 Potassium 4.1 mmol/L (3.5-5.1) 11/23/16 05:35 Chloride 98 mmol/L (98-107) 11/23/16 05:35 Carbon Dioxide 33 mmol/L (21-32) H 11/23/16 05:35 Anion Gap 11 (8-16) 11/23/16 05:35 BUN 40 mg/dL (7-18) H 11/23/16 05:35 Creatinine 2.1 mg/dL (0.7-1.3) H 11/23/16 05:35 Creat Clearance w eGFR 32.92 (>60) 11/22/16 06:30 Calcium 8.2 mg/dL (8.5-10.1) L 11/23/16 05:35 Total Bilirubin 0.4 mg/dL (0.2-1.0) D 11/22/16 06:30 AST 15 U/L (15-37) D 11/22/16 06:30 ALT 37 U/L (12-78) D 11/22/16 06:30 Alkaline Phosphatase 106 U/L (45-117) 11/22/16 06:30 Total Protein 6.8 g/dl (6.4-8.2) 11/22/16 06:30 Albumin 2.6 g/dl (3.4-5.0) L 11/22/16 06:30 Medical Decision Making 75 year old male, from [facility], with significant medical hx of dementia, CVA w/ right sided weakness, AFib, DM, CKD, COPD (s/p intubation 2005), CHF, HTN , HLD, and [place] s/p stents who is presenting to the ED for respiratory distress . Per family, the patient has been dyspneic that worsens when the patient lies flat; he was also noted to have an O2Sat of 78%. He is known to me as outpatient and has seizure disordered with EEGs showing focal slowing. He had rapid response yesterday and question of seizure. I recommended CT head and did not show changes. We increased Keppra to 1250 twice daily but keppra level at 100 and therefore should bring down dosage to 1000mg twice daily. No seizures overnight or today. Neurologically stable. Continue medical optimization of CHF. Continue PAP therapy, has underlying SAJAN.
--- NOTE | 2016-11-23 12:16 | PN ---
Progress Note, Physician History of Present Illness: Pt seen and examined at bedside. He is awake and alert. He appears comfortable. - Current Medication List Current Medications: Active Medications Acetaminophen (Tylenol -) 650 mg PO Q6H PRN PRN Reason: PAIN Last Admin: 11/20/16 21:50 Dose: 650 mg Albuterol/Ipratropium (Duoneb -) 1 amp NEB QIDR [facility] Last Admin: 11/23/16 11:37 Dose: 1 amp Aspirin (Ecotrin -) 81 mg PO DAILY [facility] Last Admin: 11/23/16 09:18 Dose: 81 mg Atorvastatin Calcium (Lipitor -) 10 mg PO HS [facility] Last Admin: 11/22/16 21:43 Dose: 10 mg Carvedilol (Coreg -) 12.5 mg PO BID [facility] Last Admin: 11/23/16 09:17 Dose: 12.5 mg Clopidogrel Bisulfate (Plavix -) 75 mg PO DAILY [facility] Last Admin: 11/23/16 09:18 Dose: 75 mg Docusate Sodium (Colace -) 100 mg PO DAILY [facility] Last Admin: 11/23/16 09:18 Dose: 100 mg Donepezil HCl (Aricept -) 5 mg PO DAILY [facility] Last Admin: 11/23/16 09:19 Dose: 5 mg Ergocalciferol (Drisdol -) 50,000 unit PO Q7D@1000 [facility] Ferrous Sulfate (Feosol -) 325 mg PO DAILY [facility] Last Admin: 11/23/16 09:18 Dose: 325 mg Finasteride (Proscar -) 5 mg PO DAILY [facility] Last Admin: 11/23/16 09:19 Dose: 5 mg Furosemide (Lasix Injection -) 40 mg IVPB BID@0600,1400 [facility] Last Admin: 11/23/16 05:59 Dose: 40 mg Gabapentin (Neurontin -) 300 mg PO BID [facility] Last Admin: 11/23/16 09:31 Dose: 300 mg Insulin Aspart (Novolog Vial Sliding Scale -) 0 vial SQ ACHS [facility] PRN Reason: Protocol Last Admin: 11/23/16 11:35 Dose: 4 units Insulin Detemir (Levemir Vial) 42 units SQ HS [facility] Isosorbide Mononitrate (Imdur -) 30 mg PO DAILY [facility] Last Admin: 11/23/16 09:19 Dose: 30 mg Levetiracetam 1,000 mg/ (Levetiracetam 250 mg) 1,250 mg PO BID [facility] Last Admin: 11/23/16 09:18 Dose: 1,250 mg Lisinopril (Prinivil) 10 mg PO DAILY [facility] Last Admin: 11/23/16 09:19 Dose: 10 mg Mirtazapine (Remeron -) 15 mg PO HS [facility] Last Admin: 11/22/16 21:43 Dose: 15 mg Nifedipine (Procardia Xl -) 60 mg PO DAILY [facility] Last Admin: 11/23/16 09:18 Dose: 60 mg Oxycodone HCl (Roxicodone -) 10 mg PO Q6H PRN PRN Reason: PAIN Pantoprazole Sodium (Protonix -) 40 mg PO DAILY [facility] Last Admin: 11/23/16 09:19 Dose: 40 mg Ranitidine HCl (Zantac -) 150 mg PO BID [facility] Last Admin: 11/23/16 09:18 Dose: 150 mg Spironolactone (Aldactone -) 25 mg PO DAILY [facility] Last Admin: 11/23/16 09:18 Dose: 25 mg Tamsulosin HCl (Flomax -) 0.4 mg PO DAILY [facility] Last Admin: 11/23/16 09:16 Dose: 0.4 mg Tolnaftate (Tinactin 1% Cream -) 1 applic TP BID [facility] Last Admin: 11/23/16 09:16 Dose: 1 applic - Objective Vital Signs: Vital Signs Temperature 98.7 F 11/23/16 10:00 Pulse Rate 73 11/23/16 10:00 Respiratory Rate 18 11/23/16 10:00 Blood Pressure 139/74 11/23/16 10:00 O2 Sat by Pulse Oximetry (%) 93 L 11/23/16 11:38 Constitutional: Yes: Calm Eyes: Yes: Conjunctiva Clear HENT: Yes: Atraumatic Neck: Yes: Supple Cardiovascular: Yes: S1, S2 Respiratory: Yes: On Nasal O2 Gastrointestinal: Yes: Soft Genitourinary: Yes: Metcalf Present Musculoskeletal: Yes: Muscle Weakness Edema: No Neurological: Yes: Oriented Labs: CBC, BMP 11/22/16 18:11 11/23/16 05:35 INR, PTT INR 1.22 (0.82-1.09) H 11/18/16 18:10 Problem List - Problems (1) Chronic systolic CHF (congestive heart failure) Code(s): I50.22 - CHRONIC SYSTOLIC (CONGESTIVE) HEART FAILURE (2) Epilepsy Code(s): G40.909 - EPILEPSY, UNSP, NOT INTRACTABLE, WITHOUT STATUS EPILEPTICUS (3) CKD (chronic kidney disease) Code(s): N18.9 - CHRONIC KIDNEY DISEASE, UNSPECIFIED Assessment/Plan Current Medications Generic Name Dose Route Start Last Admin Trade Name Freq PRN Reason Stop Dose Admin Acetaminophen 650 mg 11/18/16 20:03 11/20/16 21:50 Tylenol - PO 650 mg Q6H PRN Administration PAIN Albuterol/Ipratropium 1 amp 11/19/16 00:30 11/23/16 11:37 Duoneb - NEB 1 amp QIDR [facility] Administration Aspirin 81 mg 11/19/16 10:00 11/23/16 09:18 Ecotrin - PO 81 mg DAILY [facility] Administration Atorvastatin Calcium 10 mg 11/18/16 22:00 11/22/16 21:43 Lipitor - PO 10 mg HS [facility] Administration Carvedilol 12.5 mg 11/18/16 22:00 11/23/16 09:17 Coreg - PO 12.5 mg BID [facility] Administration Clopidogrel Bisulfate 75 mg 11/19/16 10:00 11/23/16 09:18 Plavix - PO 75 mg DAILY [facility] Administration Docusate Sodium 100 mg 11/19/16 10:00 11/23/16 09:18 Colace - PO 100 mg DAILY [facility] Administration Donepezil HCl 5 mg 11/19/16 10:00 11/23/16 09:19 Aricept - PO 5 mg DAILY [facility] Administration Ergocalciferol 50,000 unit 11/25/16 10:00 Drisdol - PO Q7D@1000 [facility] Ferrous Sulfate 325 mg 11/21/16 10:00 11/23/16 09:18 Feosol - PO 325 mg DAILY [facility] Administration Finasteride 5 mg 11/19/16 10:00 11/23/16 09:19 Proscar - PO 5 mg DAILY [facility] Administration Furosemide 40 mg 11/19/16 14:00 11/23/16 05:59 Lasix Injection - IVPB 40 mg BID@0600,1400 [facility] Administration Gabapentin 300 mg 11/18/16 22:00 11/23/16 09:31 Neurontin - PO 300 mg BID [facility] Administration Insulin Aspart 0 vial 11/18/16 22:00 11/23/16 11:35 Novolog Vial Sliding Scale - SQ 4 units ACHS [facility] Administration Protocol Insulin Detemir 42 units 11/23/16 22:00 Levemir Vial SQ HS [facility] Isosorbide Mononitrate 30 mg 11/19/16 10:00 11/23/16 09:19 Imdur - PO 30 mg DAILY [facility] Administration Levetiracetam 1,000 mg/ 1,250 mg 11/22/16 22:00 11/23/16 09:18 Levetiracetam 250 mg PO 1,250 mg BID [facility] Administration Lisinopril 10 mg 11/19/16 10:00 11/23/16 09:19 Prinivil PO 10 mg DAILY [facility] Administration Mirtazapine 15 mg 11/18/16 22:00 11/22/16 21:43 Remeron - PO 15 mg HS [facility] Administration Nifedipine 60 mg 11/19/16 10:00 11/23/16 09:18 Procardia Xl - PO 60 mg DAILY [facility] Administration Oxycodone HCl 10 mg 11/18/16 20:03 Roxicodone - PO Q6H PRN PAIN Pantoprazole Sodium 40 mg 11/19/16 10:00 11/23/16 09:19 Protonix - PO 40 mg DAILY [facility] Administration Ranitidine HCl 150 mg 11/18/16 22:00 11/23/16 09:18 Zantac - PO 150 mg BID [facility] Administration Spironolactone 25 mg 11/19/16 10:00 11/23/16 09:18 Aldactone - PO 25 mg DAILY [facility] Administration Tamsulosin HCl 0.4 mg 11/19/16 10:00 11/23/16 09:16 Flomax - PO 0.4 mg DAILY [facility] Administration Tolnaftate 1 applic 11/18/16 22:00 11/23/16 09:16 Tinactin 1% Cream - TP 1 applic BID [facility] Administration Impression 1. CKD 2. seizure 3. hx CVA 4. DM 5. epilepsy 6. hyperlipidemia 7. hx anemia 8. hx a-fib 9. hypokalemia 10. CAD 11. acute CHF Plan - cardio input appreciated - pts volume status appears improved - cont with lasix, can likely change to PO in am - cont with michael - will follow closely - CKD likely from DM and HTN Dr Jc
--- NOTE | 2016-11-23 12:49 | PN ---
Progress Note, Physician History of Present Illness: PULMONARY ALERT,NAD,-SOB,-CONGESTION - Current Medication List Current Medications: Active Medications Acetaminophen (Tylenol -) 650 mg PO Q6H PRN PRN Reason: PAIN Last Admin: 11/20/16 21:50 Dose: 650 mg Albuterol/Ipratropium (Duoneb -) 1 amp NEB QIDR [facility] Last Admin: 11/23/16 11:37 Dose: 1 amp Aspirin (Ecotrin -) 81 mg PO DAILY [facility] Last Admin: 11/23/16 09:18 Dose: 81 mg Atorvastatin Calcium (Lipitor -) 10 mg PO HS [facility] Last Admin: 11/22/16 21:43 Dose: 10 mg Carvedilol (Coreg -) 12.5 mg PO BID [facility] Last Admin: 11/23/16 09:17 Dose: 12.5 mg Clopidogrel Bisulfate (Plavix -) 75 mg PO DAILY [facility] Last Admin: 11/23/16 09:18 Dose: 75 mg Docusate Sodium (Colace -) 100 mg PO DAILY [facility] Last Admin: 11/23/16 09:18 Dose: 100 mg Donepezil HCl (Aricept -) 5 mg PO DAILY [facility] Last Admin: 11/23/16 09:19 Dose: 5 mg Ergocalciferol (Drisdol -) 50,000 unit PO Q7D@1000 [facility] Ferrous Sulfate (Feosol -) 325 mg PO DAILY [facility] Last Admin: 11/23/16 09:18 Dose: 325 mg Finasteride (Proscar -) 5 mg PO DAILY [facility] Last Admin: 11/23/16 09:19 Dose: 5 mg Furosemide (Lasix Injection -) 40 mg IVPB BID@0600,1400 [facility] Last Admin: 11/23/16 05:59 Dose: 40 mg Gabapentin (Neurontin -) 300 mg PO BID [facility] Last Admin: 11/23/16 09:31 Dose: 300 mg Insulin Aspart (Novolog Vial Sliding Scale -) 0 vial SQ ACHS [facility] PRN Reason: Protocol Last Admin: 11/23/16 11:35 Dose: 4 units Insulin Detemir (Levemir Vial) 42 units SQ HS [facility] Isosorbide Mononitrate (Imdur -) 30 mg PO DAILY [facility] Last Admin: 11/23/16 09:19 Dose: 30 mg Levetiracetam 1,000 mg/ (Levetiracetam 250 mg) 1,250 mg PO BID [facility] Last Admin: 11/23/16 09:18 Dose: 1,250 mg Lisinopril (Prinivil) 10 mg PO DAILY [facility] Last Admin: 11/23/16 09:19 Dose: 10 mg Mirtazapine (Remeron -) 15 mg PO HS [facility] Last Admin: 11/22/16 21:43 Dose: 15 mg Nifedipine (Procardia Xl -) 60 mg PO DAILY [facility] Last Admin: 11/23/16 09:18 Dose: 60 mg Oxycodone HCl (Roxicodone -) 10 mg PO Q6H PRN PRN Reason: PAIN Pantoprazole Sodium (Protonix -) 40 mg PO DAILY [facility] Last Admin: 11/23/16 09:19 Dose: 40 mg Ranitidine HCl (Zantac -) 150 mg PO BID [facility] Last Admin: 11/23/16 09:18 Dose: 150 mg Spironolactone (Aldactone -) 25 mg PO DAILY [facility] Last Admin: 11/23/16 09:18 Dose: 25 mg Tamsulosin HCl (Flomax -) 0.4 mg PO DAILY [facility] Last Admin: 11/23/16 09:16 Dose: 0.4 mg Tolnaftate (Tinactin 1% Cream -) 1 applic TP BID [facility] Last Admin: 11/23/16 09:16 Dose: 1 applic - Objective Vital Signs: Vital Signs Temperature 98.7 F 11/23/16 10:00 Pulse Rate 73 11/23/16 10:00 Respiratory Rate 18 11/23/16 10:00 Blood Pressure 139/74 11/23/16 10:00 O2 Sat by Pulse Oximetry (%) 93 L 11/23/16 11:38 Constitutional: Yes: Well Nourished, Calm Eyes: Yes: WNL HENT: Yes: WNL Neck: Yes: WNL Cardiovascular: Yes: Regular Rate and Rhythm, S1, S2 Respiratory: Yes: Diminished (POOR INSPIRATORY EFFORT) Gastrointestinal: Yes: Normal Bowel Sounds, Soft Extremities: Yes: WNL Edema: No Labs: CBC, BMP 11/22/16 18:11 11/23/16 05:35 INR, PTT INR 1.22 (0.82-1.09) H 11/18/16 18:10 Problem List - Problems (1) Altered mental status Code(s): R41.82 - ALTERED MENTAL STATUS, UNSPECIFIED Qualifiers: Altered mental status type: disorientation Qualified Code(s): R41.0 - Disorientation, unspecified (2) CHF exacerbation Code(s): I50.9 - HEART FAILURE, UNSPECIFIED Qualifiers: Congestive heart failure type: unspecified congestive heart failure type Qualified Code(s): I50.9 - Heart failure, unspecified (3) Chronic systolic CHF (congestive heart failure) Code(s): I50.22 - CHRONIC SYSTOLIC (CONGESTIVE) HEART FAILURE (4) Dementia Code(s): F03.90 - UNSPECIFIED DEMENTIA WITHOUT BEHAVIORAL DISTURBANCE Qualifiers: Dementia behavioral disturbance: without behavioral disturbance (5) Difficulty breathing Code(s): R06.89 - OTHER ABNORMALITIES OF BREATHING (6) Pacemaker Code(s): Z95.0 - PRESENCE OF CARDIAC PACEMAKER (7) Seizure Code(s): R56.9 - UNSPECIFIED CONVULSIONS (8) Stented coronary artery Code(s): Z95.5 - PRESENCE OF CORONARY ANGIOPLASTY IMPLANT AND GRAFT (9) Acute on chronic renal insufficiency Code(s): N28.9 - DISORDER OF KIDNEY AND URETER, UNSPECIFIED N18.9 - CHRONIC KIDNEY DISEASE, UNSPECIFIED (10) Acute on chronic respiratory failure with hypoxia and hypercapnia Code(s): J96.21 - ACUTE AND CHRONIC RESPIRATORY FAILURE WITH HYPOXIA J96.22 - ACUTE AND CHRONIC RESPIRATORY FAILURE WITH HYPERCAPNIA (11) Acute on chronic systolic (congestive) heart failure Code(s): I50.23 - ACUTE ON CHRONIC SYSTOLIC (CONGESTIVE) HEART FAILURE (12) CKD (chronic kidney disease) Code(s): N18.9 - CHRONIC KIDNEY DISEASE, UNSPECIFIED (13) COPD (chronic obstructive pulmonary disease) Code(s): J44.9 - CHRONIC OBSTRUCTIVE PULMONARY DISEASE, UNSPECIFIED (14) CVA (cerebral infarction) Code(s): I63.9 - CEREBRAL INFARCTION, UNSPECIFIED Qualifiers: Cerebral infarction mechanism: unspecified mechanism Qualified Code(s) : I63.9 - Cerebral infarction, unspecified (15) Diabetes mellitus Code(s): E11.9 - TYPE 2 DIABETES MELLITUS WITHOUT COMPLICATIONS Qualifiers: Diabetes mellitus type: type 1 Diabetes mellitus complication status: with hyperglycemia Qualified Code(s): E10.65 - Type 1 diabetes mellitus with hyperglycemia (16) GERD (gastroesophageal reflux disease) Code(s): K21.9 - GASTRO-ESOPHAGEAL REFLUX DISEASE WITHOUT ESOPHAGITIS (17) HLD (hyperlipidemia) Code(s): E78.5 - HYPERLIPIDEMIA, UNSPECIFIED (18) HTN (hypertension) Code(s): I10 - ESSENTIAL (PRIMARY) HYPERTENSION Qualifiers: Hypertension type: essential hypertension Qualified Code(s): I10 - Essential (primary) hypertension (19) Paroxysmal atrial fibrillation Code(s): I48.0 - PAROXYSMAL ATRIAL FIBRILLATION Assessment/Plan IMP: (1) Acute on chronic renal failure Code(s): N17.9 - ACUTE KIDNEY FAILURE, UNSPECIFIED N18.9 - CHRONIC KIDNEY DISEASE, UNSPECIFIED (2) Altered mental status Code(s): R41.82 - ALTERED MENTAL STATUS, UNSPECIFIED Qualifiers: Altered mental status type: disorientation Qualified Code(s): R41.0 - Disorientation, unspecified (3) CHF exacerbation Code(s): I50.9 - HEART FAILURE, UNSPECIFIED Qualifiers: Congestive heart failure type: unspecified congestive heart failure type Qualified Code(s): I50.9 - Heart failure, unspecified (4) Chronic systolic CHF (congestive heart failure) Code(s): I50.22 - CHRONIC SYSTOLIC (CONGESTIVE) HEART FAILURE IMP: Acute Respiratory Failure requiring NIPPV improved Dementia CVA with right weakness A-fib w/ pacemaker DM CKD COPD HTN CHF HLD Epilepsy AMI S/P PCI PLAN: cont.Lasix NIPPV prn O2 BD TX PRN Aspiration precautions Daily weights Statin Keppra Plavix GI / VTE prophylaxis DR TORRES
[2016-11-23] MEDS: MIRTAZAPINE 15 MG TABLET (FP) PO SCH (21:25)
[2016-11-23] MEDS: levETIRAcetam 500 MG TABLET (FP) PO SCH (21:25)
[2016-11-23] MEDS: ATORVASTATIN CA 10 MG TABLET (FP) PO SCH (21:26)
[2016-11-23] MEDS ORDERED: INSULIN DETEMIR 100 UNITS/ML MDV SQ SCH ×2 (22:00)
[2016-11-24] MEDS: FUROSEMIDE 40 MG/4 ML INJECTABLE VIAL IVPB SCH (06:00)
[2016-11-24] MEDS: INSULIN SLIDING SCALE (NOVOLOG) 1 VIAL SQ SCH ×3 (06:00→17:46)
[2016-11-24 07:50] LABS: COCKROFT - GAULT 34.19; CREATININE 2.2 mg/dL (0.7-1.3)
[2016-11-24] MEDS ORDERED: INSULIN (NOVOLOG) ASPART 100 UNITS/ML 10ML VIAL ONE ×2 (09:47→18:23)
[2016-11-24] MEDS: DONEPEZIL HCL 10 MG TABLET (FP) PO SCH (09:57)
[2016-11-24] MEDS: SPIRONOLACTONE 25 MG TABLET (FP) PO SCH (09:57)
[2016-11-24] MEDS: DOCUSATE SODIUM 100 MG CAPSULE (FP) PO SCH (09:58)
[2016-11-24] MEDS: CARVEDILOL 6.25 MG TABLET (FP) PO SCH (09:58)
[2016-11-24] MEDS: ASPIRIN COATED 81 MG TABLET.EC PO SCH (09:58)
[2016-11-24] MEDS: levETIRAcetam 500 MG TABLET (FP) PO SCH (09:58)
[2016-11-24] MEDS: NIFEdipine E.R. 30 MG TABLET (FP) PO SCH (09:59)
[2016-11-24] MEDS: GABAPENTIN 300 MG CAPSULE (FP) PO SCH (09:59)
[2016-11-24] MEDS: ISOSORBIDE MONONITRATE 30 MG TAB.SR.24H (FP) PO SCH (09:59)
[2016-11-24] MEDS: PANTOPRAZOLE 40 MG TABLET (FP) PO SCH (09:59)
[2016-11-24] MEDS: RANITIDINE HCL 150 MG TABLET (FP) PO SCH (09:59)
[2016-11-24] MEDS: TAMSULOSIN HCL 0.4 MG CAP.ER.24H (FP) PO SCH (09:59)
[2016-11-24] MEDS: CLOPIDOGREL BISULFATE 75 MG TABLET (FP) PO SCH (09:59)
[2016-11-24] MEDS: FERROUS SO4 325 MG TABLET (FP) PO SCH (10:00)
[2016-11-24] MEDS: TOLNAFTATE 1% CREAM 15 GM TUBE TP SCH (10:00)
[2016-11-24] MEDS: LISINOPRIL 10 MG TABLET (FP) PO SCH (10:00)
[2016-11-24] MEDS: FINASTERIDE 5 MG TABLET (FP) PO SCH (10:00)
--- NOTE | 2016-11-24 11:52 | DS ---
Physical Examination Vital Signs: Vital Signs Temperature 98.8 F 11/24/16 09:00 Pulse Rate 89 11/24/16 09:07 Respiratory Rate 20 11/24/16 09:00 Blood Pressure 143/82 11/24/16 09:00 O2 Sat by Pulse Oximetry (%) 93 L 11/24/16 09:20 Constitutional: Yes: Mild Distress Eyes: Yes: WNL HENT: Yes: WNL Neck: Yes: WNL Cardiovascular: Yes: Pulse Irregular Respiratory: Yes: WNL Gastrointestinal: Yes: WNL Renal/: Yes: WNL Musculoskeletal: Yes: Muscle Weakness Extremities: Yes: WNL Edema: No Peripheral Pulses WNL: Yes Integumentary: Yes: WNL Wound/Incision: Yes: Other Neurological: Yes: Pre-Existing Deficit, Unsteady Gait, Weakness ...Motor Strength: LUE, LLE, RUE, RLE Psychiatric: Yes: Other Labs: CBC, BMP 11/22/16 18:11 11/24/16 06:00 Discharge Summary Reason For Visit: DIASTOLIC CONGESTIVE HEART FAILURE/ ACUTE CHRONIC Current Active Problems Abdominal pain (Acute) Acute on chronic renal failure (Acute) Altered mental status (Acute) Atrial flutter (Acute) Atypical chest pain (Acute) CHF exacerbation (Acute) Chronic systolic CHF (congestive heart failure) (Acute) Delirium (Acute) Dementia (Acute) Difficulty breathing (Acute) Epilepsy (Acute) Hypokalemia (Acute) Hypotension (Acute) Hypoxia (Acute) MRSA (methicillin resistant staph aureus) culture positive (Acute) Near syncope (Acute) Need for rapid response team activation (Acute) Pacemaker (Acute) Seizure (Acute) Stented coronary artery (Acute) Procedures: Principal: CT HEAD Other Procedures: LABS Hospital Course: ADMITTED AND IV LASIX GIVEN FOR ACUTE ON CHRONIC CHF/CRI/OLD CVA/SEIZURE D/O WITH POOR PROGNOSIS, DISCUSSED WITH FAMILY AND CARDIOLOGY TO REFER TO A [facility] TO OPTIMIZE PATIENTS CARE. REDUCE FURTHER ADMISSIONS Condition: Stable - Instructions Diet, Activity, Other Instructions: LOW SODIUM/ADA F/U [facility] SEE DR NICHOLS OUTPATIENT IN 1-2 DAYS Referrals: Srini Nichols [Primary Care Provider] - Disposition: VNS/HOME HEALTH CARE - Home Medications Comprehensive Discharge Medication List: Ambulatory Orders Acetaminophen [Tylenol] 650 mg PO Q6H PRN 11/18/16 Aspirin [Ecotrin] 81 mg PO DAILY 11/18/16 Atorvastatin Ca [Lipitor] 10 mg PO HS 11/18/16 Carvedilol [Coreg] 12.5 mg PO BID 11/18/16 Clopidogrel Bisulfate [Plavix -] 75 mg PO DAILY 11/18/16 Docusate Sodium [Colace -] 100 mg PO DAILY 11/18/16 Donepezil HCl [Aricept] 5 mg PO DAILY 11/18/16 Ergocalciferol [Drisdol -] 50,000 unit PO Q7D@1000 11/18/16 Ferrous Sulfate [Feosol] 325 mg PO BID 11/18/16 Finasteride 5 mg PO DAILY 11/18/16 Furosemide 20 mg PO BID 11/18/16 Gabapentin [Neurontin] 300 mg PO BID 11/18/16 Insulin Degludec [Tresiba Flextouch U-100] 42 unit SQ DAILY 11/18/16 Isosorbide Mononitrate [Imdur -] 30 mg PO DAILY 11/18/16 Levetiracetam [Keppra -] 1,000 mg PO BID 11/18/16 Lidocaine [Aspercreme] 1 each TP DAILY 11/18/16 Lisinopril 10 mg PO DAILY 11/18/16 Mirtazapine [Remeron Soltab -] 15 mg PO HS 11/18/16 Nifedipine ER [Procardia XL -] 60 mg PO DAILY 11/18/16 Oxycodone HCl 10 mg PO Q6H PRN 11/18/16 Pantoprazole Sodium 40 mg PO DAILY 11/18/16 Potassium Chloride 10 meq PO DAILY 11/18/16 Ranitidine [Zantac -] 150 mg PO BID 11/18/16 Spironolactone [Aldactone] 25 mg PO DAILY 11/18/16 Tamsulosin HCl [Flomax] 0.4 mg PO DAILY 11/18/16 Tolnaftate 1% Cream [Tinactin 1% Cream -] 1 applic TP BID 11/18/16 Albuterol 2.5/Ipratropium 0.5 [Duoneb -] 1 amp NEB QIDR amp 11/24/16 Levetiracetam [Keppra -] 1,250 mg PO BID #60 tablet 11/24/16
--- NOTE | 2016-11-24 12:52 | PN ---
Progress Note, Physician History of Present Illness: Pt seen and examined at bedside. He is more awake and alert today. He is sitting up in bed. He feels that his breathing is improved. - Current Medication List Current Medications: Active Medications Acetaminophen (Tylenol -) 650 mg PO Q6H PRN PRN Reason: PAIN Last Admin: 11/20/16 21:50 Dose: 650 mg Aspirin (Ecotrin -) 81 mg PO DAILY [facility] Last Admin: 11/24/16 09:58 Dose: 81 mg Atorvastatin Calcium (Lipitor -) 10 mg PO HS [facility] Last Admin: 11/23/16 21:26 Dose: 10 mg Carvedilol (Coreg -) 12.5 mg PO BID [facility] Last Admin: 11/24/16 09:58 Dose: 12.5 mg Clopidogrel Bisulfate (Plavix -) 75 mg PO DAILY [facility] Last Admin: 11/24/16 09:59 Dose: 75 mg Docusate Sodium (Colace -) 100 mg PO DAILY [facility] Last Admin: 11/24/16 09:58 Dose: 100 mg Donepezil HCl (Aricept -) 5 mg PO DAILY [facility] Last Admin: 11/24/16 09:57 Dose: 5 mg Ergocalciferol (Drisdol -) 50,000 unit PO Q7D@1000 [facility] Ferrous Sulfate (Feosol -) 325 mg PO DAILY [facility] Last Admin: 11/24/16 10:00 Dose: 325 mg Finasteride (Proscar -) 5 mg PO DAILY [facility] Last Admin: 11/24/16 10:00 Dose: 5 mg Gabapentin (Neurontin -) 300 mg PO BID [facility] Last Admin: 11/24/16 09:59 Dose: 300 mg Insulin Aspart (Novolog Vial Sliding Scale -) 0 vial SQ [facility] PRN Reason: Protocol Last Admin: 11/24/16 11:44 Dose: 4 units Insulin Detemir (Levemir Vial) 20 units SQ HS [facility] Last Admin: 11/23/16 21:26 Dose: 20 units Isosorbide Mononitrate (Imdur -) 30 mg PO DAILY [facility] Last Admin: 11/24/16 09:59 Dose: 30 mg Levetiracetam (Keppra -) 1,000 mg PO BID [facility] Last Admin: 11/24/16 09:58 Dose: 1,000 mg Lisinopril (Prinivil) 10 mg PO DAILY [facility] Last Admin: 11/24/16 10:00 Dose: 10 mg Mirtazapine (Remeron -) 15 mg PO HS [facility] Last Admin: 11/23/16 21:25 Dose: 15 mg Nifedipine (Procardia Xl -) 60 mg PO DAILY [facility] Last Admin: 11/24/16 09:59 Dose: 60 mg Oxycodone HCl (Roxicodone -) 10 mg PO Q6H PRN PRN Reason: PAIN Pantoprazole Sodium (Protonix -) 40 mg PO DAILY [facility] Last Admin: 11/24/16 09:59 Dose: 40 mg Ranitidine HCl (Zantac -) 150 mg PO BID [facility] Last Admin: 11/24/16 09:59 Dose: 150 mg Spironolactone (Aldactone -) 25 mg PO DAILY [facility] Last Admin: 11/24/16 09:57 Dose: 25 mg Tamsulosin HCl (Flomax -) 0.4 mg PO DAILY [facility] Last Admin: 11/24/16 09:59 Dose: 0.4 mg Tolnaftate (Tinactin 1% Cream -) 1 applic TP BID [facility] Last Admin: 11/24/16 10:00 Dose: 1 applic - Objective Vital Signs: Vital Signs Temperature 98.8 F 11/24/16 09:00 Pulse Rate 99 H 11/24/16 11:58 Respiratory Rate 20 11/24/16 09:00 Blood Pressure 143/82 11/24/16 09:00 O2 Sat by Pulse Oximetry (%) 94 L 11/24/16 12:07 Constitutional: Yes: Calm Eyes: Yes: Conjunctiva Clear HENT: Yes: Atraumatic Cardiovascular: Yes: S1, S2 Respiratory: Yes: CTA Bilaterally, On Nasal O2 Gastrointestinal: Yes: Normal Bowel Sounds, Soft Genitourinary: Yes: WNL Edema: No Neurological: Yes: Oriented, Pre-Existing Deficit Psychiatric: Yes: Oriented Labs: CBC, BMP 11/22/16 18:11 11/24/16 06:00 INR, PTT INR 1.22 (0.82-1.09) H 11/18/16 18:10 Problem List - Problems (1) Chronic systolic CHF (congestive heart failure) Code(s): I50.22 - CHRONIC SYSTOLIC (CONGESTIVE) HEART FAILURE (2) Epilepsy Code(s): G40.909 - EPILEPSY, UNSP, NOT INTRACTABLE, WITHOUT STATUS EPILEPTICUS (3) CKD (chronic kidney disease) Code(s): N18.9 - CHRONIC KIDNEY DISEASE, UNSPECIFIED Assessment/Plan Current Medications Generic Name Dose Route Start Last Admin Trade Name Freq PRN Reason Stop Dose Admin Acetaminophen 650 mg 11/18/16 20:03 11/20/16 21:50 Tylenol - PO 650 mg Q6H PRN Administration PAIN Aspirin 81 mg 11/19/16 10:00 11/24/16 09:58 Ecotrin - PO 81 mg DAILY [facility] Administration Atorvastatin Calcium 10 mg 11/18/16 22:00 11/23/16 21:26 Lipitor - PO 10 mg HS [facility] Administration Carvedilol 12.5 mg 11/18/16 22:00 11/24/16 09:58 Coreg - PO 12.5 mg BID [facility] Administration Clopidogrel Bisulfate 75 mg 11/19/16 10:00 11/24/16 09:59 Plavix - PO 75 mg DAILY [facility] Administration Docusate Sodium 100 mg 11/19/16 10:00 11/24/16 09:58 Colace - PO 100 mg DAILY [facility] Administration Donepezil HCl 5 mg 11/19/16 10:00 11/24/16 09:57 Aricept - PO 5 mg DAILY [facility] Administration Ergocalciferol 50,000 unit 11/25/16 10:00 Drisdol - PO Q7D@1000 [facility] Ferrous Sulfate 325 mg 11/21/16 10:00 11/24/16 10:00 Feosol - PO 325 mg DAILY [facility] Administration Finasteride 5 mg 11/19/16 10:00 11/24/16 10:00 Proscar - PO 5 mg DAILY [facility] Administration Gabapentin 300 mg 11/18/16 22:00 11/24/16 09:59 Neurontin - PO 300 mg BID [facility] Administration Insulin Aspart 0 vial 11/18/16 22:00 11/24/16 11:44 Novolog Vial Sliding Scale - SQ 4 units ACHS [facility] Administration Protocol Insulin Detemir 20 units 11/23/16 22:00 11/23/16 21:26 Levemir Vial SQ 20 units HS [facility] Administration Isosorbide Mononitrate 30 mg 11/19/16 10:00 11/24/16 09:59 Imdur - PO 30 mg DAILY [facility] Administration Levetiracetam 1,000 mg 11/23/16 14:08 11/24/16 09:58 Keppra - PO 1,000 mg BID [facility] Administration Lisinopril 10 mg 11/19/16 10:00 11/24/16 10:00 Prinivil PO 10 mg DAILY [facility] Administration Mirtazapine 15 mg 11/18/16 22:00 11/23/16 21:25 Remeron - PO 15 mg HS [facility] Administration Nifedipine 60 mg 11/19/16 10:00 11/24/16 09:59 Procardia Xl - PO 60 mg DAILY [facility] Administration Oxycodone HCl 10 mg 11/18/16 20:03 Roxicodone - PO Q6H PRN PAIN Pantoprazole Sodium 40 mg 11/19/16 10:00 11/24/16 09:59 Protonix - PO 40 mg DAILY [facility] Administration Ranitidine HCl 150 mg 11/18/16 22:00 11/24/16 09:59 Zantac - PO 150 mg BID [facility] Administration Spironolactone 25 mg 11/19/16 10:00 11/24/16 09:57 Aldactone - PO 25 mg DAILY [facility] Administration Tamsulosin HCl 0.4 mg 11/19/16 10:00 11/24/16 09:59 Flomax - PO 0.4 mg DAILY [facility] Administration Tolnaftate 1 applic 11/18/16 22:00 11/24/16 10:00 Tinactin 1% Cream - TP 1 applic BID [facility] Administration Impression 1. CKD 2. seizure 3. hx CVA 4. DM 5. epilepsy 6. hyperlipidemia 7. hx anemia 8. hx a-fib 9. hypokalemia 10. CAD 11. acute CHF Plan - cont with lasix - monitor lytes closely while on spironolactone - will need outpt follow up if discharged - iv lasix was stopped, will add PO lasix - cont with michael - will follow closely - CKD likely from DM and HTN Dr Jc
--- NOTE | 2016-11-24 13:01 | PN ---
Progress Note (short form) - Note Progress Note: Neurology History of Present Illness Patient is a 75 year old male, from [facility], with significant medical hx of dementia, CVA w/ right sided weakness, AFib, DM, CKD, COPD (s/p intubation 2005), CHF, HTN, HLD, and MS s/p stents who is presenting to the ED for respiratory distress .He is known to me as outpatient and has seizure disordered with EEGs showing focal slowing. He had rapid response yesterday with question of seizure. I recommended CT head and did not show changes. We increased Keppra to 1250 twice daily but keppra level at 100 and therefore brought down dosage to 1000mg twice daily. No seizures since and patient neurologically stable Active Medications Acetaminophen (Tylenol -) 650 mg PO Q6H PRN PRN Reason: PAIN Last Admin: 11/20/16 21:50 Dose: 650 mg Aspirin (Ecotrin -) 81 mg PO DAILY [facility] Last Admin: 11/24/16 09:58 Dose: 81 mg Atorvastatin Calcium (Lipitor -) 10 mg PO HS [facility] Last Admin: 11/23/16 21:26 Dose: 10 mg Carvedilol (Coreg -) 12.5 mg PO BID [facility] Last Admin: 11/24/16 09:58 Dose: 12.5 mg Clopidogrel Bisulfate (Plavix -) 75 mg PO DAILY [facility] Last Admin: 11/24/16 09:59 Dose: 75 mg Docusate Sodium (Colace -) 100 mg PO DAILY [facility] Last Admin: 11/24/16 09:58 Dose: 100 mg Donepezil HCl (Aricept -) 5 mg PO DAILY [facility] Last Admin: 11/24/16 09:57 Dose: 5 mg Ergocalciferol (Drisdol -) 50,000 unit PO Q7D@1000 [facility] Ferrous Sulfate (Feosol -) 325 mg PO DAILY [facility] Last Admin: 11/24/16 10:00 Dose: 325 mg Finasteride (Proscar -) 5 mg PO DAILY [facility] Last Admin: 11/24/16 10:00 Dose: 5 mg Furosemide (Lasix -) 60 mg PO BID@0600,1400 [facility] Gabapentin (Neurontin -) 300 mg PO BID [facility] Last Admin: 11/24/16 09:59 Dose: 300 mg Insulin Aspart (Novolog Vial Sliding Scale -) 0 vial SQ ACHS [facility] PRN Reason: Protocol Last Admin: 11/24/16 11:44 Dose: 4 units Insulin Detemir (Levemir Vial) 20 units SQ HS [facility] Last Admin: 11/23/16 21:26 Dose: 20 units Isosorbide Mononitrate (Imdur -) 30 mg PO DAILY [facility] Last Admin: 11/24/16 09:59 Dose: 30 mg Levetiracetam (Keppra -) 1,000 mg PO BID [facility] Last Admin: 11/24/16 09:58 Dose: 1,000 mg Lisinopril (Prinivil) 10 mg PO DAILY [facility] Last Admin: 11/24/16 10:00 Dose: 10 mg Mirtazapine (Remeron -) 15 mg PO HS [facility] Last Admin: 11/23/16 21:25 Dose: 15 mg Nifedipine (Procardia Xl -) 60 mg PO DAILY [facility] Last Admin: 11/24/16 09:59 Dose: 60 mg Oxycodone HCl (Roxicodone -) 10 mg PO Q6H PRN PRN Reason: PAIN Pantoprazole Sodium (Protonix -) 40 mg PO DAILY [facility] Last Admin: 11/24/16 09:59 Dose: 40 mg Ranitidine HCl (Zantac -) 150 mg PO BID [facility] Last Admin: 11/24/16 09:59 Dose: 150 mg Spironolactone (Aldactone -) 25 mg PO DAILY [facility] Last Admin: 11/24/16 09:57 Dose: 25 mg Tamsulosin HCl (Flomax -) 0.4 mg PO DAILY [facility] Last Admin: 11/24/16 09:59 Dose: 0.4 mg Tolnaftate (Tinactin 1% Cream -) 1 applic TP BID [facility] Last Admin: 11/24/16 10:00 Dose: 1 applic *Physical Exam Vital Signs Period Temp Pulse Resp BP Sys/Quevedo Pulse Ox Last 24 Hr 98.1 F-99.7 F 60-79 18-21 120-151/66-75 96-97 GENERAL: The patient is in no acute distress. HEAD: Normal with no signs of trauma. EYES: Fake right eye. Left PERRLA, left EOMI, sclera anicteric, conjunctiva clear. ENT: Ears normal, nares patent, oropharynx clear without exudates. Moist mucous membranes. NECK: Normal range of motion, supple without lymphadenopathy, JVD, or masses. LUNGS: Respiratory distress, tachypneic, decreased breath sounds at the bilateral bases. HEART: Regular rate and rhythm, normal S1 and S2 without murmur, rub or gallop. ABDOMEN: Soft, nontender, normoactive bowel sounds. No guarding, no rebound. EXTREMITIES: Normal range of motion, no edema. No clubbing or cyanosis. No erythema, or tenderness. NEUROLOGICAL: Cranial nerves II through XII grossly intact. Normal speech. No focal neurological deficits. CBCD WBC 5.8 K/mm3 (4.0-10.0) 11/22/16 18:11 RBC 3.75 M/mm3 (4.00-5.60) L 11/22/16 18:11 Hgb 9.2 GM/dL (11.7-16.9) L D 11/22/16 18:11 Hct 29.5 % (35.4-49) L 11/22/16 18:11 MCV 78.6 fl (80-96) L 11/22/16 18:11 MCHC 31.1 g/dl (32.0-35.9) L 11/22/16 18:11 RDW 20.4 % (11.9-15.9) H 11/22/16 18:11 Plt Count 220 K/MM3 (134-434) 11/22/16 18:11 MPV 8.4 fl (7.5-11.1) 11/22/16 18:11 CMP Sodium 142 mmol/L (136-145) 11/24/16 06:00 Potassium 4.3 mmol/L (3.5-5.1) 11/24/16 06:00 Chloride 99 mmol/L (98-107) 11/24/16 06:00 Carbon Dioxide 35 mmol/L (21-32) H 11/24/16 06:00 Anion Gap 8 (8-16) 11/24/16 06:00 BUN 44 mg/dL (7-18) H 11/24/16 06:00 Creatinine 2.2 mg/dL (0.7-1.3) H 11/24/16 06:00 Creat Clearance w eGFR 32.92 (>60) 11/22/16 06:30 Calcium 8.0 mg/dL (8.5-10.1) L 11/24/16 06:00 Total Bilirubin 0.4 mg/dL (0.2-1.0) D 11/22/16 06:30 AST 15 U/L (15-37) D 11/22/16 06:30 ALT 37 U/L (12-78) D 11/22/16 06:30 Alkaline Phosphatase 106 U/L (45-117) 11/22/16 06:30 Total Protein 6.8 g/dl (6.4-8.2) 11/22/16 06:30 Albumin 2.6 g/dl (3.4-5.0) L 11/22/16 06:30 Medical Decision Making 75 year old male, from [facility], with significant medical hx of dementia, CVA w/ right sided weakness, AFib, DM, CKD, COPD (s/p intubation 2005), CHF, HTN , HLD, and MS s/p stents who is presenting to the ED for respiratory distress .He is known to me as outpatient and has seizure disordered with EEGs showing focal slowing. He had rapid response yesterday with question of seizure. I recommended CT head and did not show changes. We increased Keppra to 1250 twice daily but keppra level at 100 and therefore brought down dosage to 1000mg twice daily. No seizures since and patient neurologically stable No seizures overnight or today. Neurologically stable. Continue medical optimization of CHF. Continue PAP therapy, has underlying SAJAN.
[2016-11-24] MEDS ORDERED: FUROSEMIDE 40 MG TABLET (FP) PO SCH (14:00)
[2016-11-24 19:42] VITALS: BP 127/76; PULSE 69; TEMP 98.2
[2016-11-25] MEDS ORDERED: ERGOCALCIFEROL (VITAMIN D2) 50,000 UNIT CAPSULE (FP) PO SCH (10:00)
== END 2016-11-24 20:05 | disposition home health service (06) | DRG 291 ==
LOC: JER 17:58 → JERBED 20:58 → UNDOADMIN 21:30 → JERBED 21:30 → JICU 23:49 → J4S 11-21 16:34
PROVIDERS: ADMIT Family Medicine; ATTEND Family Medicine
PROC: 5A09557 Assistance with Respiratory Ventilation, Greater than 96 Consecutive Hours, Continuous Positive Airway Pressure (ICD-10-PCS; principal; 2016-11-18)
DX: I13.0 Hypertensive heart and chronic kidney disease with heart failure and stage 1 through stage 4 chronic kidney disease, or unspecified chronic kidney disease (principal); J96.01 Acute respiratory failure with hypoxia; I50.23 Acute on chronic systolic (congestive) heart failure; I69.351 Hemiplegia and hemiparesis following cerebral infarction affecting right dominant side; I48.91 Unspecified atrial fibrillation; G40.909 Epilepsy, unspecified, not intractable, without status epilepticus; E78.5 Hyperlipidemia, unspecified; E11.9 Type 2 diabetes mellitus without complications; E87.6 Hypokalemia; F03.90 Unspecified dementia, unspecified severity, without behavioral disturbance, psychotic disturbance, mood disturbance, and anxiety; Z95.0 Presence of cardiac pacemaker; R41.82 Altered mental status, unspecified; J44.9 Chronic obstructive pulmonary disease, unspecified; I25.10 Atherosclerotic heart disease of native coronary artery without angina pectoris; Z98.61 Coronary angioplasty status; N18.9 Chronic kidney disease, unspecified
CPT/HCPCS: 36415; 36600; 70450-TC; 71010-TC; 76775-TC; 76856-TC; 80048; 80053; 81003; 81015; 82375; 82550; 82570; 82803; 83050; 83605; 83735; 83880; 84100; 84146; 84156; 84443; 84484; 85025; 85610; 85730; 86850; 86900; 86901; 87040; 87086; 93005; 93010; 93306-TC; 93925-TC; 94640; 94660; 94761; 99285-25

== ENCOUNTER 2016-11-30 12:47 | Inpatient (IN) | payer OTHER ==
--- NOTE | 2016-11-30 13:16 | PDOC ---
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 Upon ER arrival. Patient was noted to have an oxygen saturation of 98% on room air, respiratory rate of 18, heart rate of 60 and blood pressure measurement 144/78. Patient was recently in this ED for CHF exacerbation. Patient was placed on a high Lasix dosage, which allowed him to urinate a lot. He was ultimately discharged. Patient's states that for the course of a 48 hour period, the patient has been noted to have decreased urinary output (approximately 100 ccs), despite compliance with Lasix. No fever , chills, dysuria, abdominal pain, nausea, vomiting, testicular pain/swelling. Allergies: No Known Drug Allergies. Past Surgical History: Cholecystectomy. Right hand orthopedic surgery Social History: Never smoked. No ETOH and recreational drug use. Primary Care Physician: Dr. Srini Nichols Neurologist: Dr. Aj López <Trudi León - Last Filed: 11/30/16 15:07> - General Chief Complaint: Weakness Stated Complaint: WEAKNESS Time Seen by Provider: 11/30/16 13:15 Past History - Past Medical History Anemia: Yes Asthma: No Cancer: No Cardiac Disorders: Yes (mi 1992) 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)) COPD: No CHF: Yes Dementia: Yes Diabetes: Yes GI Disorders: Yes (Gastritis) Disorders: No HTN: Yes Hypercholesterolemia: Yes Liver Disease: No Suicide Attempt (Hx): No Seizures: Yes (epilepsy) Thyroid Disease: No - Surgical History Abdominal Surgery: Yes Appendectomy: No Cardiac Surgery: No Cholecystectomy: Yes Lung Surgery: No Neurologic Surgery: No Orthopedic Surgery: Yes (R HAND) - Immunization History Immunization Up to Date: No - Psycho/Social/Smoking Cessation Hx Anxiety: No Suicidal Ideation: No Smoking History: Never smoked Have you smoked in the past 12 months: No Number of Cigarettes Smoked Daily: 0 Hx Alcohol Use: No Drug/Substance Use Hx: No Substance Use Type: None Hx Substance Use Treatment: No <Stevenson Cancino - Last Filed: 11/30/16 15:05> <Trudi León - Last Filed: 11/30/16 15:07> - Past Medical History Allergies/Adverse Reactions: Allergies Allergy/AdvReac Type Severity Reaction Status Date / Time No Known Allergies Allergy Verified 11/30/16 13:25 Home Medications: Ambulatory Orders Acetaminophen [Tylenol] 650 mg PO Q6H PRN 11/18/16 Aspirin [Ecotrin] 81 mg PO DAILY 11/18/16 Atorvastatin Ca [Lipitor] 10 mg PO HS 11/18/16 Carvedilol [Coreg] 12.5 mg PO BID 11/18/16 Clopidogrel Bisulfate [Plavix -] 75 mg PO DAILY 11/18/16 Docusate Sodium [Colace -] 100 mg PO DAILY 11/18/16 Donepezil HCl [Aricept] 5 mg PO DAILY 11/18/16 Ergocalciferol [Drisdol -] 50,000 unit PO Q7D@1000 11/18/16 Ferrous Sulfate [Feosol] 325 mg PO BID 11/18/16 Finasteride 5 mg PO DAILY 11/18/16 Furosemide 20 mg PO BID 11/18/16 Gabapentin [Neurontin] 300 mg PO BID 11/18/16 Insulin Degludec [Tresiba Flextouch U-100] 42 unit SQ DAILY 11/18/16 Isosorbide Mononitrate [Imdur -] 30 mg PO DAILY 11/18/16 Levetiracetam [Keppra -] 1,000 mg PO BID 11/18/16 Lidocaine [Aspercreme] 1 each TP DAILY 11/18/16 Lisinopril 10 mg PO DAILY 11/18/16 Mirtazapine [Remeron Soltab -] 15 mg PO HS 11/18/16 Nifedipine ER [Procardia XL -] 60 mg PO DAILY 11/18/16 Oxycodone HCl 10 mg PO Q6H PRN 11/18/16 Pantoprazole Sodium 40 mg PO DAILY 11/18/16 Potassium Chloride 10 meq PO DAILY 11/18/16 Ranitidine [Zantac -] 150 mg PO BID 11/18/16 Spironolactone [Aldactone] 25 mg PO DAILY 11/18/16 Tamsulosin HCl [Flomax] 0.4 mg PO DAILY 11/18/16 Tolnaftate 1% Cream [Tinactin 1% Cream -] 1 applic TP BID 11/18/16 Albuterol 2.5/Ipratropium 0.5 [Duoneb -] 1 amp NEB QIDR amp 11/24/16 Levetiracetam [Keppra -] 1,250 mg PO BID #60 tablet 11/24/16 Review of Systems - Review of Systems Constitutional: No: Chills, Fever Respiratory: Yes: Shortness of Breath. No: Cough Cardiac (ROS): Yes: Chest Pain, Edema, Lightheadedness : Yes: See HPI All Other Systems: Reviewed and Negative <Stevenson Cancino - Last Filed: 11/30/16 15:05> *Physical Exam - Physical Exam Comments: 11/30/16 13:28 GENERAL: The patient is awake, alert, and fully oriented, in no acute distress. HEAD: Normal with no signs of trauma. EYES: Pupils equal, round and reactive to light, extraocular movements intact, sclera anicteric, conjunctiva clear with no pallor. ENT: Ears normal, nares patent, oropharynx clear without exudates. Moist mucous membranes. NECK: Normal range of motion, supple without lymphadenopathy, JVD, or masses. LUNGS: Bibasilar crackles about [address] the lung sultana. HEART: Pacemaker in the left upper chest. Regular rate and rhythm, normal S1 and S2 without murmur or rub. ABDOMEN: Soft/nontender/nondistended. BS wnl. No guarding or rebound. No palpable masses. No hepatosplenomegaly. EXTREMITIES: Normal range of motion, 1+ pitting to the right lower extremity and hand edema. Trace edema on the left lower extremity. No clubbing or cyanosis. No cords, erythema, or tenderness. NEUROLOGICAL: Cranial nerves II through XII grossly intact. Normal speech. PSYCH: Normal mood, normal affect. SKIN: Warm, Dry, normal turgor, no rashes or lesions noted. <Trudi León - Last Filed: 11/30/16 15:07> Heart Score/ECG Review #1 ECG reviewed & interpreted by me at: 13:05 11/30/16 14:12 Ventricular paced at 60, no secondary signs of acute ischemic change. <Stevensno Cancino - Last Filed: 11/30/16 15:05> ED Treatment Course - LABORATORY CBC & Chemistry Diagram: 11/30/16 13:04 11/30/16 13:04 - RADIOLOGY Radiology Studies Ordered: Category Date Time Status CHEST X-RAY PORTABLE* [RAD] Stat Radiology 11/30/16 13:15 Ordered <tSevenson Cancino - Last Filed: 11/30/16 15:05> - LABORATORY CBC & Chemistry Diagram: 11/30/16 13:04 11/30/16 13:04 - RADIOLOGY Radiograph Interpretation: 11/30/16 14:33 EXAM: RAD/CHEST X-RAY PORTABLE IMPRESSION: A single frontal portable projection of the chest at 1:23 PM is submitted. The heart size is enlarged with a right-sided pacemaker is present. There are increased interstitial markings consistent with pulmonary vascular congestion and moderate-sized bilateral pleural effusions. <Trudi León - Last Filed: 11/30/16 15:07> Medical Decision Making - Medical Decision Making 11/30/16 14:13 A portion of this note was documented by scribe services under my direction. I have reviewed the details of the note, within reason, and agree with the documentation with the following case summary and management plan written by me. 75-year-old male with history of diastolic heart failure and recent admission for diuresis last week, discharged on increased dose of Lasix now presents with 2 days of oliguria and worsening volume overload despite compliance with his Lasix. Complaining of his usual upper chest pain and worsening shortness of breath. Vitals as noted. Alert, tachypneic, increased work of breathing Bilateral crackles Bilateral edema 75-year-old male with pulmonary edema and volume overload despite compliance with increased Lasix dose, rule out worsening of underlying cardiac function versus renal disease. Seen with Dr. López at bedside, will need admission. Labs, urinalysis EKG, chest x-ray BiPAP for pressure support IV Lasix, IV morphine for chest pain Admission 11/30/16 15:01 Baseline anemia of 9.9, baseline renal insufficiency of 1.8, troponin 0.04. Test x-ray consistent with volume overload/pulmonary edema. Improved on BiPAP. Will proceed with admission, Dr. Aguiar covering Dr. Nichols. 11/30/16 15:05 Accepted for obs tele by Dr. Aguiar. <Stevenson Cancino - Last Filed: 11/30/16 15:05> - Medical Decision Making 11/30/16 15:[address] Benjie Aguiar. <Trudi León - Last Filed: 11/30/16 15:07> *DC/Admit/Observation/Transfer - Discharge Dispostion Admit: Yes <Stevenson Cancino - Last Filed: 11/30/16 15:05> - Attestations Scribe Attestion: 11/30/16 13:28 Documentation prepared by Trudi León, acting as hospital medical assistant for Stevenson Cancino MD. <Trudi León - Last Filed: 11/30/16 15:07> Diagnosis at time of Disposition: Difficulty breathing, Chronic diastolic CHF (congestive heart failure) Pulmonary edema Qualifiers: Chronicity: acute Qualified Code(s): J81.0 - Acute pulmonary edema - Discharge Dispostion Condition at time of disposition: Fair
[2016-11-30 13:26] VITALS: BMI 27.3
[2016-11-30] MEDS ORDERED: morphine CARPU-JECT 4 MG/1 ML DISP.SYRIN ONE (13:39)
[2016-11-30] MEDS ORDERED: morphine CARPU-JECT 4 MG/1 ML DISP.SYRIN IVPUSH ONE (13:44)
[2016-11-30] MEDS ORDERED: FUROSEMIDE 40 MG/4 ML INJECTABLE VIAL IVPUSH ONE (13:44)
[2016-11-30] MEDS ORDERED: FUROSEMIDE 40 MG/4 ML INJECTABLE VIAL ONE (13:48)
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
[2016-11-30 14:05] LABS: BASOPHIL 0.6 % (0-2.0); EOSINOPHIL 5.3 % (0-4.5); MCH 24.5 pg (25.7-33.7); MCHC 31.1 g/dl (32.0-35.9); MEAN PLT VOLUME 8.1 fl (7.5-11.1); NEUTROPHILS 79.1 % (42.8-82.8); PLATELET COUNT 207 K/MM3 (134-434); RDW 18.9 % (11.9-15.9); WHITE BLOOD COUNT 6.8 K/mm3 (4.0-10.0)
[2016-11-30 14:33] LABS: INR 3.45 (0.82-1.09); PROTHROMBIN TIME (PATIENT) 38.9 SEC (9.98-11.88)
[2016-11-30 14:35] LABS: ALBUMIN 2.8 g/dl (3.4-5.0); BILIRUBIN,TOTAL 0.3 mg/dL (0.2-1.0); COCKROFT - GAULT 41.03; CREATININE 1.8 mg/dL (0.7-1.3); MAGNESIUM 2.2 mg/dL (1.8-2.4)
[2016-11-30 14:38] LABS: TROPONIN I 0.04 ng/ml (0.00-0.05)
[2016-11-30] MEDS ORDERED: oxyCODONE HCL 5 MG TABLET PO PRN (15:36)
--- NOTE | 2016-11-30 15:56 | EKG ---
Test Reason : Blood Pressure : / mmHG Vent. Rate : 060 BPM Atrial Rate : 064 BPM P-R Int : 000 ms QRS Dur : 192 ms QT Int : 510 ms P-R-T Axes : 000 -66 107 degrees QTc Int : 510 ms Ventricular-paced rhythm ABNORMAL ECG WHEN COMPARED WITH ECG OF 22-NOV-2016 14:48, NO SIGNIFICANT CHANGE WAS FOUND Confirmed by MADISYN ENGLAND MD ([id number]) on 11/30/2016 3:55:57 PM Referred By: Confirmed By:MADISYN ENGLAND MD
[2016-11-30] MEDS: ALBUTEROL SO4 2.5/IPRATROPIUM 0.5 INH SOL 3 ML VIAL.NEB. NEB SCH (18:13)
[2016-11-30] MEDS ORDERED: levETIRAcetam 500 MG TABLET (FP) PO SCH (22:00)
[2016-11-30] MEDS ORDERED: levETIRAcetam 250 MG TABLET (FP) PO ONE (22:23)
[2016-11-30] MEDS ORDERED: levETIRAcetam 500 MG TABLET (FP) PO ONE (22:23)
[2016-11-30] MEDS: LEVETIRACETAM PO SCH (22:28)
[2016-11-30] MEDS: GABAPENTIN 300 MG CAPSULE (FP) PO SCH (22:29)
[2016-11-30] MEDS: MIRTAZAPINE 15 MG TABLET (FP) PO SCH (22:29)
[2016-11-30] MEDS: CARVEDILOL 12.5 MG TABLET (FP) PO SCH (22:29)
[2016-11-30] MEDS: FERROUS SO4 325 MG TABLET (FP) PO SCH (22:29)
[2016-11-30] MEDS: ATORVASTATIN CA 10 MG TABLET (FP) PO SCH (22:29)
[2016-12-01] MEDS: ALBUTEROL SO4 2.5/IPRATROPIUM 0.5 INH SOL 3 ML VIAL.NEB. NEB SCH ×5 (00:17→23:57)
[2016-12-01] MEDS: FUROSEMIDE 40 MG/4 ML INJECTABLE VIAL IVPUSH SCH ×2 (06:12→13:34)
[2016-12-01] MEDS ORDERED: levETIRAcetam 250 MG TABLET (FP) PO ONE ×3 (07:53→22:47)
[2016-12-01] MEDS ORDERED: levETIRAcetam 500 MG TABLET (FP) PO ONE ×2 (07:53→22:46)
[2016-12-01 08:10] LABS: BASOPHIL 0.5 % (0-2.0); EOSINOPHIL 4.8 % (0-4.5); MCHC 31.8 g/dl (32.0-35.9); MEAN CELL VOLUME 78.6 fl (80-96); MEAN PLT VOLUME 8.5 fl (7.5-11.1); NEUTROPHILS 77.7 % (42.8-82.8); PLATELET COUNT 213 K/MM3 (134-434); RDW 18.9 % (11.9-15.9); WHITE BLOOD COUNT 7.4 K/mm3 (4.0-10.0)
[2016-12-01] MEDS: TAMSULOSIN HCL 0.4 MG CAP.ER.24H (FP) PO SCH (08:23)
[2016-12-01 08:32] LABS: INR 3.45 (0.82-1.09); PROTHROMBIN TIME (PATIENT) 38.9 SEC (9.98-11.88)
[2016-12-01 08:43] LABS: ALBUMIN 2.8 g/dl (3.4-5.0); BILIRUBIN,TOTAL 0.4 mg/dL (0.2-1.0); COCKROFT - GAULT 46.16; CREATININE 1.6 mg/dL (0.7-1.3); TOT PROT 7.1 g/dl (6.4-8.2); TROPONIN I 0.04 ng/ml (0.00-0.05)
[2016-12-01] MEDS: LEVETIRACETAM PO SCH ×2 (09:49→22:53)
[2016-12-01] MEDS: GABAPENTIN 300 MG CAPSULE (FP) PO SCH ×2 (09:51→22:52)
[2016-12-01] MEDS: FERROUS SO4 325 MG TABLET (FP) PO SCH ×2 (09:51→22:52)
[2016-12-01] MEDS: CARVEDILOL 12.5 MG TABLET (FP) PO SCH ×2 (09:51→22:52)
[2016-12-01] MEDS: ISOSORBIDE MONONITRATE 30 MG TAB.SR.24H (FP) PO SCH (09:55)
[2016-12-01] MEDS: PANTOPRAZOLE 40 MG TABLET (FP) PO SCH (09:55)
[2016-12-01] MEDS: NIFEdipine E.R 60 MG TABLET (UD) PO SCH (09:55)
[2016-12-01] MEDS: CLOPIDOGREL BISULFATE 75 MG TABLET (FP) PO SCH (09:55)
[2016-12-01] MEDS: LISINOPRIL 10 MG TABLET (FP) PO SCH (09:55)
[2016-12-01] MEDS: DOCUSATE SODIUM 100 MG CAPSULE (FP) PO SCH (09:56)
[2016-12-01] MEDS: ASPIRIN COATED 81 MG TABLET.EC PO SCH (09:56)
[2016-12-01] MEDS: POTASSIUM CHLORIDE TABS 10 MEQ TABLET.ER (FP) PO SCH (09:56)
[2016-12-01] MEDS: SPIRONOLACTONE 25 MG TABLET (FP) PO SCH (09:56)
[2016-12-01] MEDS: FINASTERIDE 5 MG TABLET (FP) PO SCH (09:56)
[2016-12-01] MEDS: HYDROCORTISONE 2.5% TOPICAL CREAM 30 GM TUBE TP SCH ×2 (09:57→22:53)
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
[2016-12-01 14:31] LABS: ARTERIAL BLD GAS O2 SATURATION 90.9 % (90-98.9); ARTERIAL BLOOD GAS BASE EXCESS 6.9 meq/l (-2-2); ARTERIAL BLOOD GAS PO2 66.9 mmHg (70-100); ARTERIAL BLOOD GAS pH 7.35 (7.35-7.45)
[2016-12-01 14:34] LABS: ALLENS TEST POSITIVE; ART PUNCT SITE LEFT RADIAL; LPM/O2% 3L; PT. ON O2? YES; TYPE OF O2 NASAL CANNULA
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
--- NOTE | 2016-12-01 16:24 | RAPID ---
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 present at bedside said he stopped becoming responsive and not responding to his name. this lasted for about 60 seconds. no tonic/clonic movements, bowel /bladder incontinence or tongue biting as per RN did not miss any medications. on my arrival, pt was alert but lethargic and responding to commands. BP 134/70 HR 78 O2 99% on 50% bipap opens eyes to verbal stimuli. follows simple commands. BGM 305 labs from admission noted. no fevers noted will closely monitor for now. call place out to PMD Labs: CBC, BMP 12/01/16 05:40 12/01/16 05:40
[2016-12-01] MEDS: INSULIN SLIDING SCALE (NOVOLOG) 1 VIAL SQ SCH ×2 (16:28→22:53)
--- NOTE | 2016-12-01 17:23 | EKG ---
Test Reason : Blood Pressure : / mmHG Vent. Rate : 072 BPM Atrial Rate : 069 BPM P-R Int : 000 ms QRS Dur : 140 ms QT Int : 444 ms P-R-T Axes : 000 -56 -44 degrees QTc Int : 486 ms ATRIAL FIBRILLATION RIGHT BUNDLE BRANCH BLOCK LEFT ANTERIOR FASCICULAR BLOCK BIFASCICULAR BLOCK INFERIOR INFARCT , AGE UNDETERMINED ANTEROSEPTAL INFARCT , AGE UNDETERMINED ABNORMAL ECG Confirmed by MARILEE BECERRA, ASHLEY ([id number]) on 12/01/2016 5:23:40 PM Referred By: LESLIE BLACKBURN Confirmed By:ASHLEY HUNT MD
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
[2016-12-01] MEDS: ATORVASTATIN CA 10 MG TABLET (FP) PO SCH (22:52)
[2016-12-01] MEDS: MIRTAZAPINE 15 MG TABLET (FP) PO SCH (22:52)
[2016-12-01] MEDS: DONEPEZIL HCL 5 MG TABLET (FP) PO SCH (22:52)
[2016-12-02] MEDS: INSULIN SLIDING SCALE (NOVOLOG) 1 VIAL SQ SCH ×4 (06:27→22:04)
[2016-12-02] MEDS: FUROSEMIDE 40 MG/4 ML INJECTABLE VIAL IVPUSH SCH ×2 (06:30→13:27)
[2016-12-02] MEDS: ALBUTEROL SO4 2.5/IPRATROPIUM 0.5 INH SOL 3 ML VIAL.NEB. NEB SCH ×4 (06:36→23:12)
[2016-12-02 08:05] LABS: BASOPHIL 0.6 % (0-2.0); MCH 24.5 pg (25.7-33.7); MCHC 31.1 g/dl (32.0-35.9); MEAN CELL VOLUME 78.8 fl (80-96); MEAN PLT VOLUME 8.4 fl (7.5-11.1); PLATELET COUNT 177 K/MM3 (134-434); RDW 18.6 % (11.9-15.9); WHITE BLOOD COUNT 6.2 K/mm3 (4.0-10.0)
[2016-12-02 08:12] LABS: ALBUMIN 2.4 g/dl (3.4-5.0); BILIRUBIN,TOTAL 0.5 mg/dL (0.2-1.0); CALCIUM 7.4 mg/dL (8.5-10.1); COCKROFT - GAULT 41.76; CREATININE 1.8 mg/dL (0.7-1.3); FERRITIN 81.357 ng/ml (16.4-293.9); TOT PROT 6.1 g/dl (6.4-8.2)
[2016-12-02] MEDS ORDERED: levETIRAcetam 250 MG TABLET (FP) PO ONE ×2 (08:19→21:56)
[2016-12-02] MEDS ORDERED: levETIRAcetam 500 MG TABLET (FP) PO ONE ×2 (08:19→21:56)
--- NOTE | 2016-12-02 08:20 | PN ---
Progress Note, Physician - Current Medication List Current Medications: Active Medications Acetaminophen (Tylenol -) 650 mg PO Q6H PRN PRN Reason: PAIN Albuterol/Ipratropium (Duoneb -) 1 amp NEB QIDR [facility] Last Admin: 12/02/16 06:36 Dose: 1 amp Aspirin (Ecotrin -) 81 mg PO DAILY [facility] Last Admin: 12/01/16 09:56 Dose: 81 mg Atorvastatin Calcium (Lipitor -) 10 mg PO HS [facility] Last Admin: 12/01/16 22:52 Dose: 10 mg Carvedilol (Coreg -) 12.5 mg PO BID [facility] Last Admin: 12/01/16 22:52 Dose: 12.5 mg Clopidogrel Bisulfate (Plavix -) 75 mg PO DAILY [facility] Last Admin: 12/01/16 09:55 Dose: 75 mg Docusate Sodium (Colace -) 100 mg PO DAILY [facility] Last Admin: 12/01/16 09:56 Dose: 100 mg Donepezil HCl (Aricept -) 5 mg PO HS [facility] Last Admin: 12/01/16 22:52 Dose: 5 mg Ferrous Sulfate (Feosol -) 325 mg PO BID [facility] Last Admin: 12/01/16 22:52 Dose: 325 mg Finasteride (Proscar -) 5 mg PO DAILY [facility] Last Admin: 12/01/16 09:56 Dose: 5 mg Furosemide (Lasix Injection -) 40 mg IVPUSH BID@0600,1400 [facility] Last Admin: 12/02/16 06:30 Dose: 40 mg Gabapentin (Neurontin -) 300 mg PO BID [facility] Last Admin: 12/01/16 22:52 Dose: 300 mg Hydrocortisone (Anusol 2.5% Hc Cream -) 1 applic TP BID [facility] Last Admin: 12/01/16 22:53 Dose: 1 applic Insulin Aspart (Novolog Vial Sliding Scale -) 1 vial SQ ACHS [facility] PRN Reason: Protocol Last Admin: 12/02/16 06:27 Dose: Not Given Isosorbide Mononitrate (Imdur -) 30 mg PO DAILY [facility] Last Admin: 12/01/16 09:55 Dose: 30 mg Levetiracetam 1,000 mg/ (Levetiracetam 250 mg) 1,250 mg PO BID [facility] Last Admin: 12/01/16 22:53 Dose: 1,250 mg Lisinopril (Prinivil) 10 mg PO DAILY [facility] Last Admin: 12/01/16 09:55 Dose: 10 mg Mirtazapine (Remeron -) 15 mg PO HS [facility] Last Admin: 12/01/16 22:52 Dose: 15 mg Nifedipine (Procardia Xl -) 60 mg PO DAILY [facility] Last Admin: 12/01/16 09:55 Dose: 60 mg Oxycodone HCl (Roxicodone -) 10 mg PO Q6H PRN PRN Reason: PAIN Pantoprazole Sodium (Protonix -) 40 mg PO DAILY [facility] Last Admin: 12/01/16 09:55 Dose: 40 mg Potassium Chloride (K-Dur -) 10 meq PO DAILY [facility] Last Admin: 12/01/16 09:56 Dose: 10 meq Spironolactone (Aldactone -) 25 mg PO DAILY [facility] Last Admin: 12/01/16 09:56 Dose: 25 mg Tamsulosin HCl (Flomax -) 0.4 mg PO DAILY@0830 [facility] Last Admin: 12/01/16 08:23 Dose: 0.4 mg - Objective Vital Signs: Vital Signs Temperature 98.0 F 12/02/16 07:47 Pulse Rate 67 12/02/16 07:47 Respiratory Rate 20 12/02/16 07:50 Blood Pressure 157/78 12/02/16 07:47 O2 Sat by Pulse Oximetry (%) 99 12/02/16 07:50 Labs: INR, PTT INR 3.45 (0.82-1.09) H 12/01/16 05:40 Assessment/Plan - Problems (1) Acute on chronic systolic (congestive) heart failure Assessment/Plan: iv lasix bipap- check ABG cardio on board pulm coreg aldactone imdur Code(s): I50.23 - ACUTE ON CHRONIC SYSTOLIC (CONGESTIVE) HEART FAILURE (2) Anemia Assessment/Plan: check iron panel Code(s): D64.9 - ANEMIA, UNSPECIFIED Qualifiers: Anemia type: unspecified type Qualified Code(s): D64.9 - Anemia, unspecified (3) CKD (chronic kidney disease) Assessment/Plan: renal eval currently cr is stable Code(s): N18.9 - CHRONIC KIDNEY DISEASE, UNSPECIFIED (4) Epilepsy Assessment/Plan: CHANGE IN MS-YESTERDAY--NEURO-CT OF HEAD--ABG keprra Code(s): G40.909 - EPILEPSY, UNSP, NOT INTRACTABLE, WITHOUT STATUS EPILEPTICUS (5) Diabetes mellitus Assessment/Plan: on insulin bgm hga1c noted Code(s): E11.9 - TYPE 2 DIABETES MELLITUS WITHOUT COMPLICATIONS Qualifiers: Diabetes mellitus type: type 2 Diabetes mellitus complication status: with hyperglycemia Qualified Code(s): E10.65 - Type 1 diabetes mellitus with hyperglycemia
--- NOTE | 2016-12-02 09:08 | PN ---
Progress Note, Physician Chief Complaint: Pt is eating lunch; no chest pain or dyspnea.Daughter is at bedside. 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 Upon ER arrival. Patient was noted to have an oxygen saturation of 98% on room air, respiratory rate of 18, heart rate of 60 and blood pressure measurement 144/78. Patient was recently in this ED for CHF exacerbation. Patient was placed on a high Lasix dosage, which allowed him to urinate a lot. He was ultimately discharged. Patient's states that for the course of a 48 hour period, the patient has been noted to have decreased urinary output (approximately 100 ccs), despite compliance with Lasix. No fever , chills, dysuria, abdominal pain, nausea, vomiting, testicular pain/swelling. Allergies: No Known Drug Allergies. Past Surgical History: Cholecystectomy. Right hand orthopedic surgery Social History: Never smoked. No ETOH and recreational drug use. Primary Care Physician: Dr. Srini Nichols Tool Or Die Drawing Checker: Dr. Aj López - Current Medication List Current Medications: Active Medications Acetaminophen (Tylenol -) 650 mg PO Q6H PRN PRN Reason: PAIN Albuterol/Ipratropium (Duoneb -) 1 amp NEB QIDR [facility] Last Admin: 12/02/16 06:36 Dose: 1 amp Aspirin (Ecotrin -) 81 mg PO DAILY [facility] Last Admin: 12/01/16 09:56 Dose: 81 mg Atorvastatin Calcium (Lipitor -) [address] [facility] Last Admin: 12/01/16 22:52 Dose: 10 mg Carvedilol (Coreg -) 12.5 mg PO BID [facility] Last Admin: 12/01/16 22:52 Dose: 12.5 mg Clopidogrel Bisulfate (Plavix -) 75 mg PO DAILY [facility] Last Admin: 12/01/16 09:55 Dose: 75 mg Docusate Sodium (Colace -) 100 mg PO DAILY [facility] Last Admin: 12/01/16 09:56 Dose: 100 mg Donepezil HCl (Aricept -) [address] [facility] Last Admin: 12/01/16 22:52 Dose: 5 mg Ferrous Sulfate (Feosol -) 325 mg PO BID [facility] Last Admin: 12/01/16 22:52 Dose: 325 mg Finasteride (Proscar -) 5 mg PO DAILY [facility] Last Admin: 12/01/16 09:56 Dose: 5 mg Furosemide (Lasix Injection -) 40 mg IVPUSH BID@0600,1400 [facility] Last Admin: 12/02/16 06:30 Dose: 40 mg Gabapentin (Neurontin -) 300 mg PO BID [facility] Last Admin: 12/01/16 22:52 Dose: 300 mg Hydrocortisone (Anusol 2.5% Hc Cream -) 1 applic TP BID [facility] Last Admin: 12/01/16 22:53 Dose: 1 applic Insulin Aspart (Novolog Vial Sliding Scale -) 1 vial SQ ACHS [facility] PRN Reason: Protocol Last Admin: 12/02/16 06:27 Dose: Not Given Isosorbide Mononitrate (Imdur -) 30 mg PO DAILY [facility] Last Admin: 12/01/16 09:55 Dose: 30 mg Levetiracetam 1,000 mg/ (Levetiracetam 250 mg) 1,250 mg PO BID [facility] Last Admin: 12/01/16 22:53 Dose: 1,250 mg Lisinopril (Prinivil) 10 mg PO DAILY [facility] Last Admin: 12/01/16 09:55 Dose: 10 mg Mirtazapine (Remeron -) 15 mg PO HS [facility] Last Admin: 12/01/16 22:52 Dose: 15 mg Nifedipine (Procardia Xl -) 60 mg PO DAILY [facility] Last Admin: 12/01/16 09:55 Dose: 60 mg Oxycodone HCl (Roxicodone -) 10 mg PO Q6H PRN PRN Reason: PAIN Pantoprazole Sodium (Protonix -) 40 mg PO DAILY [facility] Last Admin: 12/01/16 09:55 Dose: 40 mg Potassium Chloride (K-Dur -) 10 meq PO DAILY [facility] Last Admin: 12/01/16 09:56 Dose: 10 meq Spironolactone (Aldactone -) 25 mg PO DAILY [facility] Last Admin: 12/01/16 09:56 Dose: 25 mg Tamsulosin HCl (Flomax -) 0.4 mg PO DAILY@0830 [facility] Last Admin: 12/01/16 08:23 Dose: 0.4 mg - Objective Vital Signs: Vital Signs Temperature 98.0 F 12/02/16 07:47 Pulse Rate 67 12/02/16 07:47 Respiratory Rate 20 12/02/16 07:50 Blood Pressure 157/78 12/02/16 07:47 O2 Sat by Pulse Oximetry (%) 99 12/02/16 07:50 Constitutional: Yes: Calm Eyes: Yes: WNL Neck: Yes: WNL Cardiovascular: Yes: Pulse Irregular Respiratory: Yes: Diminished Gastrointestinal: Yes: Soft ...Rectal Exam: Yes: Deferred Genitourinary: No: Anuria Breast(s): Yes: WNL Musculoskeletal: Yes: Muscle Weakness Extremities: Yes: Cool Edema: No Peripheral Pulses WNL: No Peripheral Pulses: Left Doralis Pedis: 1+, Right Dorsalis Pedis: 1+ Neurological: Yes: Alert, Oriented Psychiatric: Yes: WNL Labs: CBC, BMP 12/02/16 05:35 12/02/16 05:35 INR, PTT INR 3.45 (0.82-1.09) H 12/01/16 05:40 - ....Imaging EKG: Image Reviewed (NSR; RBBB; LAFB (chronic)) Problem List - Problems (1) Abdominal pain Code(s): R10.9 - UNSPECIFIED ABDOMINAL PAIN Qualifiers: Abdominal location: generalized Qualified Code(s): R10.84 - Generalized abdominal pain (2) Atypical chest pain Code(s): R07.89 - OTHER CHEST PAIN (3) Chronic diastolic CHF (congestive heart failure) Code(s): I50.32 - CHRONIC DIASTOLIC (CONGESTIVE) HEART FAILURE (4) Chronic systolic CHF (congestive heart failure) Assessment/Plan: Continue present medications. MUGA for LVEF when stable. Plan for pt to be seen by heart failure group. Code(s): I50.22 - CHRONIC SYSTOLIC (CONGESTIVE) HEART FAILURE (5) MRSA (methicillin resistant staph aureus) culture positive Code(s): Z22.322 - CARRIER OR SUSPECTED CARRIER OF METHICILLIN RESIS STAPH (6) Mitral regurgitation Code(s): I34.0 - NONRHEUMATIC MITRAL (VALVE) INSUFFICIENCY (7) Pacemaker Code(s): Z95.0 - PRESENCE OF CARDIAC PACEMAKER (8) Pulmonary hypertension Code(s): I27.2 - OTHER SECONDARY PULMONARY HYPERTENSION (9) Stented coronary artery Code(s): Z95.5 - PRESENCE OF CORONARY ANGIOPLASTY IMPLANT AND GRAFT (10) Acute on chronic renal insufficiency Code(s): N28.9 - DISORDER OF KIDNEY AND URETER, UNSPECIFIED N18.9 - CHRONIC KIDNEY DISEASE, UNSPECIFIED
--- NOTE | 2016-12-02 09:14 | PN ---
Progress Note, Physician Chief Complaint: Pt alert; was OOB in chair earlier; no complaints. 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 Upon ER arrival. Patient was noted to have an oxygen saturation of 98% on room air, respiratory rate of 18, heart rate of 60 and blood pressure measurement 144/78. Patient was recently in this ED for CHF exacerbation. Patient was placed on a high Lasix dosage, which allowed him to urinate a lot. He was ultimately discharged. Patient's states that for the course of a 48 hour period, the patient has been noted to have decreased urinary output (approximately 100 ccs), despite compliance with Lasix. No fever , chills, dysuria, abdominal pain, nausea, vomiting, testicular pain/swelling. Allergies: No Known Drug Allergies. Past Surgical History: Cholecystectomy. Right hand orthopedic surgery Social History: Never smoked. No ETOH and recreational drug use. Primary Care Physician: Dr. Srini Nichols Interpretive Naturalist: Dr. Aj López - Current Medication List Current Medications: Active Medications Acetaminophen (Tylenol -) 650 mg PO Q6H PRN PRN Reason: PAIN Albuterol/Ipratropium (Duoneb -) 1 amp NEB QIDR [facility] Last Admin: 12/02/16 06:36 Dose: 1 amp Aspirin (Ecotrin -) 81 mg PO DAILY [facility] Last Admin: 12/01/16 09:56 Dose: 81 mg Atorvastatin Calcium (Lipitor -) 10 mg PO [facility] Last Admin: 12/01/16 22:52 Dose: 10 mg Carvedilol (Coreg -) 12.5 mg PO BID [facility] Last Admin: 12/01/16 22:52 Dose: 12.5 mg Clopidogrel Bisulfate (Plavix -) 75 mg PO DAILY [facility] Last Admin: 12/01/16 09:55 Dose: 75 mg Docusate Sodium (Colace -) 100 mg PO DAILY [facility] Last Admin: 12/01/16 09:56 Dose: 100 mg Donepezil HCl (Aricept -) 5 mg PO [facility] Last Admin: 12/01/16 22:52 Dose: 5 mg Ferrous Sulfate (Feosol -) 325 mg PO BID [facility] Last Admin: 12/01/16 22:52 Dose: 325 mg Finasteride (Proscar -) 5 mg PO DAILY [facility] Last Admin: 12/01/16 09:56 Dose: 5 mg Furosemide (Lasix Injection -) 40 mg IVPUSH BID@0600,1400 [facility] Last Admin: 12/02/16 06:30 Dose: 40 mg Gabapentin (Neurontin -) 300 mg PO BID [facility] Last Admin: 12/01/16 22:52 Dose: 300 mg Hydrocortisone (Anusol 2.5% Hc Cream -) 1 applic TP BID [facility] Last Admin: 12/01/16 22:53 Dose: 1 applic Insulin Aspart (Novolog Vial Sliding Scale -) 1 vial SQ ACHS [facility] PRN Reason: Protocol Last Admin: 12/02/16 06:27 Dose: Not Given Isosorbide Mononitrate (Imdur -) 30 mg PO DAILY [facility] Last Admin: 12/01/16 09:55 Dose: 30 mg Levetiracetam 1,000 mg/ (Levetiracetam 250 mg) 1,250 mg PO BID [facility] Last Admin: 12/01/16 22:53 Dose: 1,250 mg Lisinopril (Prinivil) 10 mg PO DAILY [facility] Last Admin: 12/01/16 09:55 Dose: 10 mg Mirtazapine (Remeron -) 15 mg PO HS [facility] Last Admin: 12/01/16 22:52 Dose: 15 mg Nifedipine (Procardia Xl -) 60 mg PO DAILY [facility] Last Admin: 12/01/16 09:55 Dose: 60 mg Oxycodone HCl (Roxicodone -) 10 mg PO Q6H PRN PRN Reason: PAIN Pantoprazole Sodium (Protonix -) 40 mg PO DAILY [facility] Last Admin: 12/01/16 09:55 Dose: 40 mg Potassium Chloride (K-Dur -) 10 meq PO DAILY [facility] Last Admin: 12/01/16 09:56 Dose: 10 meq Spironolactone (Aldactone -) 25 mg PO DAILY [facility] Last Admin: 12/01/16 09:56 Dose: 25 mg Tamsulosin HCl (Flomax -) 0.4 mg PO DAILY@0830 [facility] Last Admin: 12/01/16 08:23 Dose: 0.4 mg - Objective Vital Signs: Vital Signs Temperature 98.0 F 12/02/16 07:47 Pulse Rate 67 12/02/16 07:47 Respiratory Rate 20 12/02/16 07:50 Blood Pressure 157/78 12/02/16 07:47 O2 Sat by Pulse Oximetry (%) 99 12/02/16 07:50 Constitutional: Yes: No Distress Eyes: Yes: WNL HENT: Yes: WNL Neck: Yes: WNL Cardiovascular: Yes: Pulse Irregular Respiratory: Yes: Diminished Gastrointestinal: Yes: Soft ...Rectal Exam: Yes: Deferred Genitourinary: No: Anuria Breast(s): Yes: WNL Musculoskeletal: Yes: Muscle Weakness Extremities: Yes: Cool Edema: No Peripheral Pulses WNL: No Peripheral Pulses: Left Doralis Pedis: 1+, Right Dorsalis Pedis: 1+ Integumentary: Yes: WNL Neurological: Yes: Alert, Oriented, Weakness Psychiatric: Yes: Alert Labs: CBC, BMP 12/02/16 05:35 12/02/16 05:35 INR, PTT INR 3.45 (0.82-1.09) H 12/01/16 05:40 Problem List - Problems (1) Abdominal pain Code(s): R10.9 - UNSPECIFIED ABDOMINAL PAIN Qualifiers: Qualified Code(s): R10.84 - Generalized abdominal pain (2) Atypical chest pain Code(s): R07.89 - OTHER CHEST PAIN (3) Chronic diastolic CHF (congestive heart failure) Code(s): I50.32 - CHRONIC DIASTOLIC (CONGESTIVE) HEART FAILURE (4) Chronic systolic CHF (congestive heart failure) Assessment/Plan: Change to PO furosemide when coffee sampler concurs. MUGA for LVEF when stable. Plan for pt to be seen by heart failure group. Code(s): I50.22 - CHRONIC SYSTOLIC (CONGESTIVE) HEART FAILURE (5) MRSA (methicillin resistant staph aureus) culture positive Code(s): Z22.322 - CARRIER OR SUSPECTED CARRIER OF METHICILLIN RESIS STAPH (6) Mitral regurgitation Code(s): I34.0 - NONRHEUMATIC MITRAL (VALVE) INSUFFICIENCY (7) Pacemaker Code(s): Z95.0 - PRESENCE OF CARDIAC PACEMAKER (8) Pulmonary hypertension Code(s): I27.2 - OTHER SECONDARY PULMONARY HYPERTENSION (9) Stented coronary artery Code(s): Z95.5 - PRESENCE OF CORONARY ANGIOPLASTY IMPLANT AND GRAFT (10) Acute on chronic renal insufficiency Code(s): N28.9 - DISORDER OF KIDNEY AND URETER, UNSPECIFIED N18.9 - CHRONIC KIDNEY DISEASE, UNSPECIFIED
[2016-12-02] MEDS: LEVETIRACETAM PO SCH ×2 (09:57→22:04)
[2016-12-02] MEDS: TAMSULOSIN HCL 0.4 MG CAP.ER.24H (FP) PO SCH (09:57)
[2016-12-02] MEDS: FERROUS SO4 325 MG TABLET (FP) PO SCH ×2 (09:57→22:04)
[2016-12-02] MEDS: ISOSORBIDE MONONITRATE 30 MG TAB.SR.24H (FP) PO SCH (09:57)
[2016-12-02] MEDS: NIFEdipine E.R 60 MG TABLET (UD) PO SCH (09:57)
[2016-12-02] MEDS: PANTOPRAZOLE 40 MG TABLET (FP) PO SCH (09:57)
[2016-12-02] MEDS: GABAPENTIN 300 MG CAPSULE (FP) PO SCH ×2 (09:58→22:04)
[2016-12-02] MEDS: CARVEDILOL 12.5 MG TABLET (FP) PO SCH ×2 (09:58→22:04)
[2016-12-02] MEDS: CLOPIDOGREL BISULFATE 75 MG TABLET (FP) PO SCH (09:58)
[2016-12-02] MEDS: SPIRONOLACTONE 25 MG TABLET (FP) PO SCH (09:58)
[2016-12-02] MEDS: FINASTERIDE 5 MG TABLET (FP) PO SCH (09:58)
[2016-12-02] MEDS: DOCUSATE SODIUM 100 MG CAPSULE (FP) PO SCH (09:58)
[2016-12-02] MEDS: POTASSIUM CHLORIDE TABS 10 MEQ TABLET.ER (FP) PO SCH (09:58)
[2016-12-02] MEDS: LISINOPRIL 10 MG TABLET (FP) PO SCH (09:58)
[2016-12-02] MEDS: HYDROCORTISONE 2.5% TOPICAL CREAM 30 GM TUBE TP SCH ×2 (09:58→22:04)
[2016-12-02] MEDS: ASPIRIN COATED 81 MG TABLET.EC PO SCH (09:58)
[2016-12-02 10:14] LABS: ARTERIAL BLD GAS O2 SATURATION 96.2 % (90-98.9); ARTERIAL BLOOD GAS BASE EXCESS 8.6 meq/l (-2-2); ARTERIAL BLOOD GAS HCO3 35.1 meq/L (22-26); ARTERIAL BLOOD GAS PO2 83.2 mmHg (70-100); ARTERIAL BLOOD GAS pH 7.37 (7.35-7.45)
[2016-12-02 10:15] LABS: ALLENS TEST POSITIVE; ART PUNCT SITE LEFT RADIAL; LPM/O2% 50%; PT. ON O2? YES; TYPE OF O2 VENTI MASK
--- NOTE | 2016-12-02 11:31 | PN ---
Progress Note (short form) - Note Progress Note: PULMONARY AWAKE/ON BIPAP TOLERATING WELL VSS/AFEBRILE ANICTERIC DISTANT B/L BREATH SOUNDS S1S2 BS+ LESS EDEMA B/L LOWER EXT LABS/MEDS/NOTES/IMAGING/REVIEWED Acute on Chronic Systolic/Diastolic Heart Failure Acute on Chronic Hypoxic and Hypercapneic Respiratory Failure Pulmonary HTN Pleural Effusions Atrial Fibrillation Moderate Mitral Regurgitation CKD h/o CVA - IV lasix - monitor urine output, creatinine - daily weights, I/Os - O2 to keep Spo2 >90% - BiPAP to assist in work of breathing - rate control - continue anticoagulation - f/u CXR - telemetry monitoring Jean HARRINGTON MD
--- NOTE | 2016-12-02 15:58 | PN ---
Progress Note, Physician History of Present Illness: Pt seen and examined at bedside. He is more awake and alert today. - Current Medication List Current Medications: Active Medications Acetaminophen (Tylenol -) 650 mg PO Q6H PRN PRN Reason: PAIN Albuterol/Ipratropium (Duoneb -) 1 amp NEB QIDR [facility] Last Admin: 12/02/16 11:40 Dose: 1 amp Aspirin (Ecotrin -) 81 mg PO DAILY [facility] Last Admin: 12/02/16 09:58 Dose: 81 mg Atorvastatin Calcium (Lipitor -) 10 mg PO HS [facility] Last Admin: 12/01/16 22:52 Dose: 10 mg Carvedilol (Coreg -) 12.5 mg PO BID [facility] Last Admin: 12/02/16 09:58 Dose: 12.5 mg Clopidogrel Bisulfate (Plavix -) 75 mg PO DAILY [facility] Last Admin: 12/02/16 09:58 Dose: 75 mg Docusate Sodium (Colace -) 100 mg PO DAILY [facility] Last Admin: 12/02/16 09:58 Dose: 100 mg Donepezil HCl (Aricept -) 5 mg PO HS [facility] Last Admin: 12/01/16 22:52 Dose: 5 mg Ferrous Sulfate (Feosol -) 325 mg PO BID [facility] Last Admin: 12/02/16 09:57 Dose: 325 mg Finasteride (Proscar -) 5 mg PO DAILY [facility] Last Admin: 12/02/16 09:58 Dose: 5 mg Furosemide (Lasix Injection -) 40 mg IVPUSH BID@0600,1400 [facility] Last Admin: 12/02/16 13:27 Dose: 40 mg Gabapentin (Neurontin -) 300 mg PO BID [facility] Last Admin: 12/02/16 09:58 Dose: 300 mg Hydrocortisone (Anusol 2.5% Hc Cream -) 1 applic TP BID [facility] Last Admin: 12/02/16 09:58 Dose: 1 applic Insulin Aspart (Novolog Vial Sliding Scale -) 1 vial SQ ACHS [facility] PRN Reason: Protocol Last Admin: 12/02/16 11:59 Dose: Not Given Isosorbide Mononitrate (Imdur -) 30 mg PO DAILY [facility] Last Admin: 12/02/16 09:57 Dose: 30 mg Levetiracetam 1,000 mg/ (Levetiracetam 250 mg) 1,250 mg PO BID [facility] Last Admin: 12/02/16 09:57 Dose: 1,250 mg Lisinopril (Prinivil) 10 mg PO DAILY [facility] Last Admin: 12/02/16 09:58 Dose: 10 mg Mirtazapine (Remeron -) 15 mg PO HS [facility] Last Admin: 12/01/16 22:52 Dose: 15 mg Nifedipine (Procardia Xl -) 60 mg PO DAILY [facility] Last Admin: 12/02/16 09:57 Dose: 60 mg Oxycodone HCl (Roxicodone -) 10 mg PO Q6H PRN PRN Reason: PAIN Pantoprazole Sodium (Protonix -) 40 mg PO DAILY [facility] Last Admin: 12/02/16 09:57 Dose: 40 mg Potassium Chloride (K-Dur -) 10 meq PO DAILY [facility] Last Admin: 12/02/16 09:58 Dose: 10 meq Spironolactone (Aldactone -) 25 mg PO DAILY [facility] Last Admin: 12/02/16 09:58 Dose: 25 mg Tamsulosin HCl (Flomax -) 0.4 mg PO DAILY@0830 [facility] Last Admin: 12/02/16 09:57 Dose: 0.4 mg - Objective Vital Signs: Vital Signs Temperature 98.3 F 12/02/16 14:45 Pulse Rate 63 12/02/16 14:45 Respiratory Rate 20 12/02/16 14:45 Blood Pressure 122/76 12/02/16 14:45 O2 Sat by Pulse Oximetry (%) 100 12/02/16 14:30 Constitutional: Yes: Calm Eyes: Yes: Conjunctiva Clear HENT: Yes: Atraumatic Neck: Yes: Supple Cardiovascular: Yes: S1, S2 Respiratory: Yes: On Venti-Mask Gastrointestinal: Yes: Soft Genitourinary: Yes: Other (external catheter) Musculoskeletal: Yes: Muscle Weakness Edema: Yes Edema: LLE: 1+, RLE: 1+ Neurological: Yes: Oriented, Pre-Existing Deficit Labs: CBC, BMP 12/02/16 05:35 12/02/16 05:35 INR, PTT INR 3.45 (0.82-1.09) H 12/01/16 05:40 Problem List - Problems (1) Epilepsy Code(s): G40.909 - EPILEPSY, UNSP, NOT INTRACTABLE, WITHOUT STATUS EPILEPTICUS (2) Acute respiratory failure Code(s): J96.00 - ACUTE RESPIRATORY FAILURE, UNSP W HYPOXIA OR HYPERCAPNIA (3) CHF (congestive heart failure) Code(s): I50.9 - HEART FAILURE, UNSPECIFIED Qualifiers: Qualified Code(s): I50.43 - Acute on chronic combined systolic ( congestive) and diastolic (congestive) heart failure (4) CKD (chronic kidney disease) Code(s): N18.9 - CHRONIC KIDNEY DISEASE, UNSPECIFIED (5) COPD (chronic obstructive pulmonary disease) Code(s): J44.9 - CHRONIC OBSTRUCTIVE PULMONARY DISEASE, UNSPECIFIED (6) CVA (cerebral infarction) Code(s): I63.9 - CEREBRAL INFARCTION, UNSPECIFIED Qualifiers: Qualified Code(s): I63.9 - Cerebral infarction, unspecified Assessment/Plan Current Medications Generic Name Dose Route Start Last Admin Trade Name Freq PRN Reason Stop Dose Admin Acetaminophen 650 mg 11/30/16 15:36 Tylenol - PO Q6H PRN PAIN Albuterol/Ipratropium 1 amp 11/30/16 18:00 12/02/16 11:40 Duoneb - NEB 1 amp QIDR [facility] Administration Aspirin 81 mg 12/01/16 10:00 12/02/16 09:58 Ecotrin - PO 81 mg DAILY [facility] Administration Atorvastatin Calcium 10 mg 11/30/16 22:00 12/01/16 22:52 Lipitor - PO 10 mg HS [facility] Administration Carvedilol 12.5 mg 11/30/16 22:00 12/02/16 09:58 Coreg - PO 12.5 mg BID [facility] Administration Clopidogrel Bisulfate 75 mg 12/01/16 10:00 12/02/16 09:58 Plavix - PO 75 mg DAILY [facility] Administration Docusate Sodium 100 mg 12/01/16 10:00 12/02/16 09:58 Colace - PO 100 mg DAILY [facility] Administration Donepezil HCl 5 mg 12/01/16 22:00 12/01/16 22:52 Aricept - PO 5 mg HS [facility] Administration Ferrous Sulfate 325 mg 11/30/16 22:00 12/02/16 09:57 Feosol - PO 325 mg BID [facility] Administration Finasteride 5 mg 12/01/16 10:00 12/02/16 09:58 Proscar - PO 5 mg DAILY [facility] Administration Furosemide 40 mg 12/01/16 06:00 12/02/16 13:27 Lasix Injection - IVPUSH 40 mg BID@0600,1400 [facility] Administration Gabapentin 300 mg 11/30/16 22:00 12/02/16 09:58 Neurontin - PO 300 mg BID [facility] Administration Hydrocortisone 1 applic 12/01/16 10:00 12/02/16 09:58 Anusol 2.5% Hc Cream - TP 1 applic BID [facility] Administration Insulin Aspart 1 vial 12/01/16 16:30 12/02/16 11:59 Novolog Vial Sliding Scale - SQ Not Given ACHS [facility] Protocol Isosorbide Mononitrate 30 mg 12/01/16 10:00 12/02/16 09:57 Imdur - PO 30 mg DAILY [facility] Administration Levetiracetam 1,000 mg/ 1,250 mg 11/30/16 22:00 12/02/16 09:57 Levetiracetam 250 mg PO 1,250 mg BID [facility] Administration Lisinopril 10 mg 12/01/16 10:00 12/02/16 09:58 Prinivil PO 10 mg DAILY [facility] Administration Mirtazapine 15 mg 11/30/16 22:00 12/01/16 22:52 Remeron - PO 15 mg HS [facility] Administration Nifedipine 60 mg 12/01/16 10:00 12/02/16 09:57 Procardia Xl - PO 60 mg DAILY [facility] Administration Oxycodone HCl 10 mg 11/30/16 15:36 Roxicodone - PO Q6H PRN PAIN Pantoprazole Sodium 40 mg 12/01/16 10:00 12/02/16 09:57 Protonix - PO 40 mg DAILY [facility] Administration Potassium Chloride 10 meq 12/01/16 10:00 12/02/16 09:58 K-Dur - PO 10 meq DAILY [facility] Administration Spironolactone 25 mg 12/01/16 10:00 12/02/16 09:58 Aldactone - PO 25 mg DAILY [facility] Administration Tamsulosin HCl 0.4 mg 12/01/16 08:30 12/02/16 09:57 Flomax - PO 0.4 mg DAILY@0830 [facility] Administration Impression 1. CKD 2. epilepsy 3. hx CVA 4. DM 5. resp failure requiring bipap 6. hyperlipidemia 7. hx anemia 8. hx a-fib 9. hypokalemia 10. CAD 11. acute CHF Plan - cont with diuretics - monitor renal function closely - cont with bipap as needed - repeat labs in am - will follow Dr Jc
[2016-12-02] MEDS: DONEPEZIL HCL 5 MG TABLET (FP) PO SCH (22:04)
[2016-12-02] MEDS: ATORVASTATIN CA 10 MG TABLET (FP) PO SCH (22:04)
[2016-12-02] MEDS: MIRTAZAPINE 15 MG TABLET (FP) PO SCH (22:04)
[2016-12-03] MEDS: FUROSEMIDE 40 MG/4 ML INJECTABLE VIAL IVPUSH SCH ×2 (06:02→14:15)
[2016-12-03] MEDS: INSULIN SLIDING SCALE (NOVOLOG) 1 VIAL SQ SCH ×4 (06:02→21:49)
[2016-12-03 06:06] LABS: SERUM IRON 24 ug/dL (38-169); TOTAL IRON BINDING CAPACITY 232 ug/dL (250-450); UIBC 208 ug/dL (111-343)
[2016-12-03] MEDS: ALBUTEROL SO4 2.5/IPRATROPIUM 0.5 INH SOL 3 ML VIAL.NEB. NEB SCH ×4 (06:40→23:14)
[2016-12-03 08:01] LABS: BASOPHIL 0.4 % (0-2.0); EOSINOPHIL 5.6 % (0-4.5); MCH 24.1 pg (25.7-33.7); MCHC 30.8 g/dl (32.0-35.9); MEAN CELL VOLUME 78.2 fl (80-96); MEAN PLT VOLUME 8.4 fl (7.5-11.1); NEUTROPHILS 75.7 % (42.8-82.8); PLATELET COUNT 182 K/MM3 (134-434); RDW 18.8 % (11.9-15.9); WHITE BLOOD COUNT 6.8 K/mm3 (4.0-10.0)
[2016-12-03] MEDS ORDERED: levETIRAcetam 250 MG TABLET (FP) PO ONE ×3 (08:06→21:38)
[2016-12-03] MEDS ORDERED: levETIRAcetam 500 MG TABLET (FP) PO ONE ×2 (08:06→21:36)
[2016-12-03] MEDS: ACETAMINOPHEN 325 MG TABLET (FP) PO PRN (08:20)
[2016-12-03] MEDS: TAMSULOSIN HCL 0.4 MG CAP.ER.24H (FP) PO SCH (08:22)
[2016-12-03 08:40] LABS: ALBUMIN 2.6 g/dl (3.4-5.0); BILIRUBIN,TOTAL 0.4 mg/dL (0.2-1.0); CALCIUM 7.8 mg/dL (8.5-10.1); TOT PROT 6.4 g/dl (6.4-8.2)
[2016-12-03 08:41] LABS: COCKROFT - GAULT 44.22; CREATININE 1.7 mg/dL (0.7-1.3)
[2016-12-03] MEDS: CARVEDILOL 12.5 MG TABLET (FP) PO SCH ×2 (09:19→21:48)
[2016-12-03] MEDS: ISOSORBIDE MONONITRATE 30 MG TAB.SR.24H (FP) PO SCH (09:19)
[2016-12-03] MEDS: FERROUS SO4 325 MG TABLET (FP) PO SCH ×2 (09:19→21:48)
[2016-12-03] MEDS: NIFEdipine E.R 60 MG TABLET (UD) PO SCH (09:19)
[2016-12-03] MEDS: LEVETIRACETAM PO SCH ×2 (09:19→21:48)
[2016-12-03] MEDS: SPIRONOLACTONE 25 MG TABLET (FP) PO SCH (09:19)
[2016-12-03] MEDS: LISINOPRIL 10 MG TABLET (FP) PO SCH (09:19)
[2016-12-03] MEDS: DOCUSATE SODIUM 100 MG CAPSULE (FP) PO SCH (09:19)
[2016-12-03] MEDS: PANTOPRAZOLE 40 MG TABLET (FP) PO SCH (09:19)
[2016-12-03] MEDS: FINASTERIDE 5 MG TABLET (FP) PO SCH (09:20)
[2016-12-03] MEDS: CLOPIDOGREL BISULFATE 75 MG TABLET (FP) PO SCH (09:20)
[2016-12-03] MEDS: POTASSIUM CHLORIDE TABS 10 MEQ TABLET.ER (FP) PO SCH (09:20)
[2016-12-03] MEDS: GABAPENTIN 300 MG CAPSULE (FP) PO SCH ×2 (09:20→21:48)
[2016-12-03] MEDS: ASPIRIN COATED 81 MG TABLET.EC PO SCH (09:20)
[2016-12-03] MEDS: HYDROCORTISONE 2.5% TOPICAL CREAM 30 GM TUBE TP SCH ×2 (09:21→21:49)
--- NOTE | 2016-12-03 11:32 | PN ---
Progress Note, Physician Chief Complaint: Pt alert; denies chest pain or dyspnea. 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 Upon ER arrival. Patient was noted to have an oxygen saturation of 98% on room air, respiratory rate of 18, heart rate of 60 and blood pressure measurement 144/78. Patient was recently in this ED for CHF exacerbation. Patient was placed on a high Lasix dosage, which allowed him to urinate a lot. He was ultimately discharged. Patient's states that for the course of a 48 hour period, the patient has been noted to have decreased urinary output (approximately 100 ccs), despite compliance with Lasix. No fever , chills, dysuria, abdominal pain, nausea, vomiting, testicular pain/swelling. Allergies: No Known Drug Allergies. Past Surgical History: Cholecystectomy. Right hand orthopedic surgery Social History: Never smoked. No ETOH and recreational drug use. Primary Care Physician: Dr. Srini Nichols [employer] Operator: Dr. Aj López - Current Medication List Current Medications: Active Medications Acetaminophen (Tylenol -) 650 mg PO Q6H PRN PRN Reason: PAIN Last Admin: 12/03/16 08:20 Dose: 650 mg Albuterol/Ipratropium (Duoneb -) 1 amp NEB QIDR [facility] Last Admin: 12/03/16 06:40 Dose: 1 amp Aspirin (Ecotrin -) 81 mg PO DAILY [facility] Last Admin: 12/03/16 09:20 Dose: 81 mg Atorvastatin Calcium (Lipitor -) 10 mg PO [facility] Last Admin: 12/02/16 22:04 Dose: 10 mg Carvedilol (Coreg -) 12.5 mg PO BID [facility] Last Admin: 12/03/16 09:19 Dose: 12.5 mg Clopidogrel Bisulfate (Plavix -) 75 mg PO DAILY [facility] Last Admin: 12/03/16 09:20 Dose: 75 mg Docusate Sodium (Colace -) 100 mg PO DAILY [facility] Last Admin: 12/03/16 09:19 Dose: 100 mg Donepezil HCl (Aricept -) 5 mg PO [facility] Last Admin: 12/02/16 22:04 Dose: 5 mg Ferrous Sulfate (Feosol -) 325 mg PO BID [facility] Last Admin: 12/03/16 09:19 Dose: 325 mg Finasteride (Proscar -) 5 mg PO DAILY [facility] Last Admin: 12/03/16 09:20 Dose: 5 mg Furosemide (Lasix Injection -) 40 mg IVPUSH BID@0600,1400 [facility] Last Admin: 12/03/16 06:02 Dose: 40 mg Gabapentin (Neurontin -) 300 mg PO BID [facility] Last Admin: 12/03/16 09:20 Dose: 300 mg Hydrocortisone (Anusol 2.5% Hc Cream -) 1 applic TP BID [facility] Last Admin: 12/03/16 09:21 Dose: 1 applic Insulin Aspart (Novolog Vial Sliding Scale -) 1 vial SQ ACHS [facility] PRN Reason: Protocol Last Admin: 12/03/16 11:27 Dose: 4 units Isosorbide Mononitrate (Imdur -) 30 mg PO DAILY [facility] Last Admin: 12/03/16 09:19 Dose: 30 mg Levetiracetam 1,000 mg/ (Levetiracetam 250 mg) 1,250 mg PO BID [facility] Last Admin: 12/03/16 09:19 Dose: 1,250 mg Lisinopril (Prinivil) 10 mg PO DAILY [facility] Last Admin: 12/03/16 09:19 Dose: 10 mg Mirtazapine (Remeron -) 15 mg PO HS [facility] Last Admin: 12/02/16 22:04 Dose: 15 mg Nifedipine (Procardia Xl -) 60 mg PO DAILY [facility] Last Admin: 12/03/16 09:19 Dose: 60 mg Oxycodone HCl (Roxicodone -) 10 mg PO Q6H PRN PRN Reason: PAIN Last Admin: 12/03/16 08:21 Dose: 10 mg Pantoprazole Sodium (Protonix -) 40 mg PO DAILY [facility] Last Admin: 12/03/16 09:19 Dose: 40 mg Potassium Chloride (K-Dur -) 10 meq PO DAILY [facility] Last Admin: 12/03/16 09:20 Dose: 10 meq Spironolactone (Aldactone -) 25 mg PO DAILY [facility] Last Admin: 12/03/16 09:19 Dose: 25 mg Tamsulosin HCl (Flomax -) 0.4 mg PO DAILY@0830 [facility] Last Admin: 12/03/16 08:22 Dose: 0.4 mg - Objective Vital Signs: Vital Signs Temperature 97.0 F L 12/03/16 07:41 Pulse Rate 63 12/03/16 07:41 Respiratory Rate 20 12/03/16 07:42 Blood Pressure 138/74 12/03/16 07:41 O2 Sat by Pulse Oximetry (%) 98 12/03/16 06:30 Constitutional: Yes: Calm Eyes: Yes: WNL HENT: Yes: WNL Neck: Yes: WNL Cardiovascular: Yes: Pulse Irregular Gastrointestinal: Yes: Soft ...Rectal Exam: Yes: Deferred Genitourinary: Yes: Anuria Musculoskeletal: Yes: Muscle Weakness Extremities: Yes: Cool Edema: No Peripheral Pulses WNL: No Peripheral Pulses: Left Doralis Pedis: 1+, Right Dorsalis Pedis: 1+ Integumentary: Yes: WNL Labs: CBC, BMP 12/03/16 05:35 12/03/16 05:35 INR, PTT INR 3.45 (0.82-1.09) H 12/01/16 05:40 Problem List - Problems (1) Abdominal pain Code(s): R10.9 - UNSPECIFIED ABDOMINAL PAIN Qualifiers: Qualified Code(s): R10.84 - Generalized abdominal pain (2) Atypical chest pain Code(s): R07.89 - OTHER CHEST PAIN (3) Chronic diastolic CHF (congestive heart failure) Code(s): I50.32 - CHRONIC DIASTOLIC (CONGESTIVE) HEART FAILURE (4) Chronic systolic CHF (congestive heart failure) Assessment/Plan: Remains on IV furosemide; on aldactone. F/u BUN/Cr, electrolytes. MUGA for LVEF when stable. Plan for pt to be seen by heart failure group. Code(s): I50.22 - CHRONIC SYSTOLIC (CONGESTIVE) HEART FAILURE (5) MRSA (methicillin resistant staph aureus) culture positive Code(s): Z22.322 - CARRIER OR SUSPECTED CARRIER OF METHICILLIN RESIS STAPH (6) Mitral regurgitation Code(s): I34.0 - NONRHEUMATIC MITRAL (VALVE) INSUFFICIENCY (7) Pacemaker Code(s): Z95.0 - PRESENCE OF CARDIAC PACEMAKER (8) Pulmonary hypertension Code(s): I27.2 - OTHER SECONDARY PULMONARY HYPERTENSION (9) Stented coronary artery Assessment/Plan: On ASA and clopidogrel. Aggressive management of lipids (statin; diet; exercise). Code(s): Z95.5 - PRESENCE OF CORONARY ANGIOPLASTY IMPLANT AND GRAFT (10) Acute on chronic renal insufficiency Code(s): N28.9 - DISORDER OF KIDNEY AND URETER, UNSPECIFIED N18.9 - CHRONIC KIDNEY DISEASE, UNSPECIFIED
--- NOTE | 2016-12-03 12:11 | PN ---
Progress Note (short form) - Note Progress Note: RENAL Pt is awake and alert seen while in bed Last Vital Signs Temp Pulse Resp BP Pulse Ox 97.0 F L 63 20 138/74 98 12/03/16 07:41 12/03/16 07:41 12/03/16 07:42 12/03/16 07:41 12/03/16 06:30 lungs decreased breath sounds bilaterally cvs s1s2 rr abd soft ext +edema neuro a+ox3, weak on right Current Medications Generic Name Dose Route Start Last Admin Trade Name Freq PRN Reason Stop Dose Admin Acetaminophen 650 mg 11/30/16 15:36 12/03/16 08:20 Tylenol - PO 650 mg Q6H PRN Administration PAIN Albuterol/Ipratropium 1 amp 11/30/16 18:00 12/03/16 11:54 Duoneb - NEB 1 amp QIDR [facility] Administration Aspirin 81 mg 12/01/16 10:00 12/03/16 09:20 Ecotrin - PO 81 mg DAILY [facility] Administration Atorvastatin Calcium 10 mg 11/30/16 22:00 12/02/16 22:04 Lipitor - PO 10 mg HS [facility] Administration Carvedilol 12.5 mg 11/30/16 22:00 12/03/16 09:19 Coreg - PO 12.5 mg BID [facility] Administration Clopidogrel Bisulfate 75 mg 12/01/16 10:00 12/03/16 09:20 Plavix - PO 75 mg DAILY [facility] Administration Docusate Sodium 100 mg 12/01/16 10:00 12/03/16 09:19 Colace - PO 100 mg DAILY [facility] Administration Donepezil HCl 5 mg 12/01/16 22:00 12/02/16 22:04 Aricept - PO 5 mg HS [facility] Administration Ferrous Sulfate 325 mg 11/30/16 22:00 12/03/16 09:19 Feosol - PO 325 mg BID [facility] Administration Finasteride 5 mg 12/01/16 10:00 12/03/16 09:20 Proscar - PO 5 mg DAILY [facility] Administration Furosemide 40 mg 12/01/16 06:00 12/03/16 06:02 Lasix Injection - IVPUSH 40 mg BID@0600,1400 [facility] Administration Gabapentin 300 mg 11/30/16 22:00 12/03/16 09:20 Neurontin - PO 300 mg BID [facility] Administration Hydrocortisone 1 applic 12/01/16 10:00 12/03/16 09:21 Anusol 2.5% Hc Cream - TP 1 applic BID [facility] Administration Insulin Aspart 1 vial 12/01/16 16:30 12/03/16 11:27 Novolog Vial Sliding Scale - SQ 4 units ACHS [facility] Administration Protocol Isosorbide Mononitrate 30 mg 12/01/16 10:00 12/03/16 09:19 Imdur - PO 30 mg DAILY [facility] Administration Levetiracetam 1,000 mg/ 1,250 mg 11/30/16 22:00 12/03/16 09:19 Levetiracetam 250 mg PO 1,250 mg BID [facility] Administration Lisinopril 10 mg 12/01/16 10:00 12/03/16 09:19 Prinivil PO 10 mg DAILY [facility] Administration Mirtazapine 15 mg 11/30/16 22:00 12/02/16 22:04 Remeron - PO 15 mg HS [facility] Administration Nifedipine 60 mg 12/01/16 10:00 12/03/16 09:19 Procardia Xl - PO 60 mg DAILY [facility] Administration Oxycodone HCl 10 mg 11/30/16 15:36 12/03/16 08:21 Roxicodone - PO 10 mg Q6H PRN Administration PAIN Pantoprazole Sodium 40 mg 12/01/16 10:00 12/03/16 09:19 Protonix - PO 40 mg DAILY [facility] Administration Potassium Chloride 10 meq 12/01/16 10:00 12/03/16 09:20 K-Dur - PO 10 meq DAILY [facility] Administration Spironolactone 25 mg 12/01/16 10:00 12/03/16 09:19 Aldactone - PO 25 mg DAILY [facility] Administration Tamsulosin HCl 0.4 mg 12/01/16 08:30 12/03/16 08:22 Flomax - PO 0.4 mg DAILY@0830 [facility] Administration CBC, BMP 12/03/16 05:35 12/03/16 05:35 Impression 1. CKD 2. epilepsy 3. hx CVA 4. DM 5. resp failure requiring bipap 6. hyperlipidemia 7. hx anemia 8. hx a-fib 9. hypokalemia 10. CAD 11. acute CHF Plan - cont with diuretics - monitor renal function closely - cont with bipap as needed - repeat labs in am monitor bicarb as he is diuresed MV
--- NOTE | 2016-12-03 12:56 | PN ---
Progress Note, Physician History of Present Illness: FEELS BETTER - Current Medication List Current Medications: Active Medications Acetaminophen (Tylenol -) 650 mg PO Q6H PRN PRN Reason: PAIN Last Admin: 12/03/16 08:20 Dose: 650 mg Albuterol/Ipratropium (Duoneb -) 1 amp NEB QIDR [facility] Last Admin: 12/03/16 11:54 Dose: 1 amp Aspirin (Ecotrin -) 81 mg PO DAILY [facility] Last Admin: 12/03/16 09:20 Dose: 81 mg Atorvastatin Calcium (Lipitor -) 10 mg PO HS [facility] Last Admin: 12/02/16 22:04 Dose: 10 mg Carvedilol (Coreg -) 12.5 mg PO BID [facility] Last Admin: 12/03/16 09:19 Dose: 12.5 mg Clopidogrel Bisulfate (Plavix -) 75 mg PO DAILY [facility] Last Admin: 12/03/16 09:20 Dose: 75 mg Docusate Sodium (Colace -) 100 mg PO DAILY [facility] Last Admin: 12/03/16 09:19 Dose: 100 mg Donepezil HCl (Aricept -) 5 mg PO HS [facility] Last Admin: 12/02/16 22:04 Dose: 5 mg Ferrous Sulfate (Feosol -) 325 mg PO BID [facility] Last Admin: 12/03/16 09:19 Dose: 325 mg Finasteride (Proscar -) 5 mg PO DAILY [facility] Last Admin: 12/03/16 09:20 Dose: 5 mg Furosemide (Lasix Injection -) 40 mg IVPUSH BID@0600,1400 [facility] Last Admin: 12/03/16 06:02 Dose: 40 mg Gabapentin (Neurontin -) 300 mg PO BID [facility] Last Admin: 12/03/16 09:20 Dose: 300 mg Hydrocortisone (Anusol 2.5% Hc Cream -) 1 applic TP BID [facility] Last Admin: 12/03/16 09:21 Dose: 1 applic Insulin Aspart (Novolog Vial Sliding Scale -) 1 vial SQ ACHS [facility] PRN Reason: Protocol Last Admin: 12/03/16 11:27 Dose: 4 units Isosorbide Mononitrate (Imdur -) 30 mg PO DAILY [facility] Last Admin: 12/03/16 09:19 Dose: 30 mg Levetiracetam 1,000 mg/ (Levetiracetam 250 mg) 1,250 mg PO BID [facility] Last Admin: 12/03/16 09:19 Dose: 1,250 mg Lisinopril (Prinivil) 10 mg PO DAILY [facility] Last Admin: 12/03/16 09:19 Dose: 10 mg Mirtazapine (Remeron -) 15 mg PO HS [facility] Last Admin: 12/02/16 22:04 Dose: 15 mg Nifedipine (Procardia Xl -) 60 mg PO DAILY [facility] Last Admin: 12/03/16 09:19 Dose: 60 mg Oxycodone HCl (Roxicodone -) 10 mg PO Q6H PRN PRN Reason: PAIN Last Admin: 12/03/16 08:21 Dose: 10 mg Pantoprazole Sodium (Protonix -) 40 mg PO DAILY [facility] Last Admin: 12/03/16 09:19 Dose: 40 mg Potassium Chloride (K-Dur -) 10 meq PO DAILY [facility] Last Admin: 12/03/16 09:20 Dose: 10 meq Spironolactone (Aldactone -) 25 mg PO DAILY [facility] Last Admin: 12/03/16 09:19 Dose: 25 mg Tamsulosin HCl (Flomax -) 0.4 mg PO DAILY@0830 [facility] Last Admin: 12/03/16 08:22 Dose: 0.4 mg - Objective Vital Signs: Vital Signs Temperature 97.0 F L 12/03/16 07:41 Pulse Rate 63 12/03/16 07:41 Respiratory Rate 20 12/03/16 07:42 Blood Pressure 138/74 12/03/16 07:41 O2 Sat by Pulse Oximetry (%) 98 12/03/16 06:30 Cardiovascular: Yes: Regular Rate and Rhythm Respiratory: Yes: Regular, CTA Bilaterally Gastrointestinal: Yes: Normal Bowel Sounds, Soft Edema: Yes (LESS) Labs: CBC, BMP 12/03/16 05:35 12/03/16 05:35 INR, PTT INR 3.45 (0.82-1.09) H 12/01/16 05:40 Assessment/Plan - Problems (1) Acute on chronic systolic (congestive) heart failure Assessment/Plan: iv lasix bipap- check ABG ABG Results ABG pH 7.37 (7.35-7.45) 12/02/16 10:10 ABG pCO2 at Pt Temp 62.9 mmHg (35-45) H* 12/02/16 10:10 ABG pO2 at Pt Temp 83.2 mmHg (70-100) D 12/02/16 10:10 ABG HCO3 35.1 meq/L (22-26) H 12/02/16 10:10 ABG O2 Sat (Measured) 96.2 % (90-98.9) 12/02/16 10:10 ABG O2 Content 13.3 % vol (15-22) L 12/02/16 10:10 ABG Base Excess 8.6 meq/l (-2-2) H 12/02/16 10:10 cardio on board pulm coreg aldactone imdur Code(s): I50.23 - ACUTE ON CHRONIC SYSTOLIC (CONGESTIVE) HEART FAILURE (2) Anemia Assessment/Plan: check iron panel Code(s): D64.9 - ANEMIA, UNSPECIFIED Qualifiers: Anemia type: unspecified type Qualified Code(s): D64.9 - Anemia, unspecified (3) CKD (chronic kidney disease) Assessment/Plan: renal eval currently cr is stable Code(s): N18.9 - CHRONIC KIDNEY DISEASE, UNSPECIFIED (4) Epilepsy Assessment/Plan: CHANGE IN MS-YESTERDAY--NEURO- CT OF HEAD--NAD ABG NOTED [facility] Code(s): G40.909 - EPILEPSY, UNSP, NOT INTRACTABLE, WITHOUT STATUS EPILEPTICUS (5) Diabetes mellitus Assessment/Plan: on insulin bgm hga1c noted Code(s): E11.9 - TYPE 2 DIABETES MELLITUS WITHOUT COMPLICATIONS Qualifiers: Diabetes mellitus type: type 2 Diabetes mellitus complication status: with hyperglycemia Qualified Code(s): E10.65 - Type 1 diabetes mellitus with hyperglycemia
--- NOTE | 2016-12-03 12:57 | PN ---
Progress Note (short form) - Note Progress Note: PULMONARY AWAKE/ON NASAL O2 FAMILY PRESENT VSS/AFEBRILE ANICTERIC DISTANT B/L BREATH SOUNDS S1S2 BS+ LESS EDEMA B/L LOWER EXT LABS/MEDS/NOTES/IMAGING/REVIEWED Acute on Chronic Systolic/Diastolic Heart Failure Acute on Chronic Hypoxic and Hypercapneic Respiratory Failure Pulmonary HTN Pleural Effusions Atrial Fibrillation Moderate Mitral Regurgitation CKD h/o CVA - IV lasix - monitor urine output, creatinine - daily weights, I/Os - O2 to keep Spo2 >90% - BiPAP to assist in work of breathing - rate control - continue anticoagulation - f/u CXR - telemetry monitoring Jean HARRINGTON MD
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
[2016-12-03] MEDS: ATORVASTATIN CA 10 MG TABLET (FP) PO SCH (21:48)
[2016-12-03] MEDS: DONEPEZIL HCL 5 MG TABLET (FP) PO SCH (21:49)
[2016-12-03] MEDS: MIRTAZAPINE 15 MG TABLET (FP) PO SCH (21:49)
[2016-12-04] MEDS: FUROSEMIDE 40 MG/4 ML INJECTABLE VIAL IVPUSH SCH ×2 (05:53→13:35)
[2016-12-04] MEDS: ALBUTEROL SO4 2.5/IPRATROPIUM 0.5 INH SOL 3 ML VIAL.NEB. NEB SCH ×3 (06:10→17:45)
[2016-12-04] MEDS: INSULIN SLIDING SCALE (NOVOLOG) 1 VIAL SQ SCH ×4 (06:11→21:22)
[2016-12-04] MEDS ORDERED: levETIRAcetam 250 MG TABLET (FP) PO ONE ×2 (08:09→21:08)
[2016-12-04] MEDS ORDERED: levETIRAcetam 500 MG TABLET (FP) PO ONE ×2 (08:09→21:09)
[2016-12-04] MEDS: TAMSULOSIN HCL 0.4 MG CAP.ER.24H (FP) PO SCH (08:11)
[2016-12-04] MEDS: POTASSIUM CHLORIDE TABS 10 MEQ TABLET.ER (FP) PO SCH (09:43)
[2016-12-04] MEDS: ISOSORBIDE MONONITRATE 30 MG TAB.SR.24H (FP) PO SCH (09:43)
[2016-12-04] MEDS: LEVETIRACETAM PO SCH ×2 (09:44→21:12)
[2016-12-04] MEDS: LISINOPRIL 10 MG TABLET (FP) PO SCH (09:45)
[2016-12-04] MEDS: DOCUSATE SODIUM 100 MG CAPSULE (FP) PO SCH (09:45)
[2016-12-04] MEDS: ASPIRIN COATED 81 MG TABLET.EC PO SCH (09:45)
[2016-12-04] MEDS: FERROUS SO4 325 MG TABLET (FP) PO SCH ×2 (09:45→21:12)
[2016-12-04] MEDS: FINASTERIDE 5 MG TABLET (FP) PO SCH (09:45)
[2016-12-04] MEDS: CLOPIDOGREL BISULFATE 75 MG TABLET (FP) PO SCH (09:45)
[2016-12-04] MEDS: CARVEDILOL 12.5 MG TABLET (FP) PO SCH ×2 (09:45→21:12)
[2016-12-04] MEDS: PANTOPRAZOLE 40 MG TABLET (FP) PO SCH (09:45)
[2016-12-04] MEDS: SPIRONOLACTONE 25 MG TABLET (FP) PO SCH (09:45)
[2016-12-04] MEDS: NIFEdipine E.R 60 MG TABLET (UD) PO SCH (09:46)
[2016-12-04] MEDS: HYDROCORTISONE 2.5% TOPICAL CREAM 30 GM TUBE TP SCH ×2 (09:46→21:12)
[2016-12-04] MEDS: GABAPENTIN 300 MG CAPSULE (FP) PO SCH ×2 (09:49→21:12)
--- NOTE | 2016-12-04 10:50 | PN ---
Progress Note (short form) - Note Progress Note: PULMONARY AWAKE/ON NASAL O2 FAMILY PRESENT VSS/AFEBRILE ANICTERIC DISTANT B/L BREATH SOUNDS S1S2 BS+ LESS EDEMA B/L LOWER EXT RIGHT HEMIPARESIS LABS/MEDS/NOTES/IMAGING/REVIEWED Acute on Chronic Systolic/Diastolic Heart Failure Acute on Chronic Hypoxic and Hypercapneic Respiratory Failure Pulmonary HTN Pleural Effusions Atrial Fibrillation Moderate Mitral Regurgitation CKD h/o CVA/Seizure disorder - diuretics - monitor urine output, creatinine - daily weights, I/Os - O2 to keep Spo2 >90% - BiPAP to assist in work of breathing - rate control - continue anticoagulation - f/u CXR ordered - telemetry monitoring Jean HARRINGTON MD
--- NOTE | 2016-12-04 12:35 | PN ---
Progress Note (short form) - Note Progress Note: RENAL Pt is awake and alert seen while in bed stable Last Vital Signs Temp Pulse Resp BP Pulse Ox 98 F 82 18 146/63 97 12/04/16 10:00 12/04/16 10:00 12/04/16 10:00 12/04/16 10:00 12/04/16 09:00 lungs decreased breath sounds bilaterally cvs s1s2 rr abd soft ext +edema neuro a+ox3, weak on right CBC, BMP 12/03/16 05:35 12/03/16 05:35 Current Medications Generic Name Dose Route Start Last Admin Trade Name Freq PRN Reason Stop Dose Admin Acetaminophen 650 mg 11/30/16 15:36 12/03/16 08:20 Tylenol - PO 650 mg Q6H PRN Administration PAIN Albuterol/Ipratropium 1 amp 11/30/16 18:00 12/04/16 06:10 Duoneb - NEB 1 amp QIDR [facility] Administration Aspirin 81 mg 12/01/16 10:00 12/04/16 09:45 Ecotrin - PO 81 mg DAILY [facility] Administration Atorvastatin Calcium 10 mg 11/30/16 22:00 12/03/16 21:48 Lipitor - PO 10 mg HS [facility] Administration Carvedilol 12.5 mg 11/30/16 22:00 12/04/16 09:45 Coreg - PO 12.5 mg BID [facility] Administration Clopidogrel Bisulfate 75 mg 12/01/16 10:00 12/04/16 09:45 Plavix - PO 75 mg DAILY [facility] Administration Docusate Sodium 100 mg 12/01/16 10:00 12/04/16 09:45 Colace - PO 100 mg DAILY [facility] Administration Donepezil HCl 5 mg 12/01/16 22:00 12/03/16 21:49 Aricept - PO 5 mg HS [facility] Administration Ferrous Sulfate 325 mg 11/30/16 22:00 12/04/16 09:45 Feosol - PO 325 mg BID [facility] Administration Finasteride 5 mg 12/01/16 10:00 12/04/16 09:45 Proscar - PO 5 mg DAILY [facility] Administration Furosemide 40 mg 12/01/16 06:00 12/04/16 05:53 Lasix Injection - IVPUSH 40 mg BID@0600,1400 [facility] Administration Gabapentin 300 mg 11/30/16 22:00 12/04/16 09:49 Neurontin - PO 300 mg BID [facility] Administration Hydrocortisone 1 applic 12/01/16 10:00 12/04/16 09:46 Anusol 2.5% Hc Cream - TP 1 applic BID [facility] Administration Insulin Aspart 1 vial 12/01/16 16:30 12/04/16 11:37 Novolog Vial Sliding Scale - SQ 4 units ACHS [facility] Administration Protocol Isosorbide Mononitrate 30 mg 12/01/16 10:00 12/04/16 09:43 Imdur - PO 30 mg DAILY [facility] Administration Levetiracetam 1,000 mg/ 1,250 mg 11/30/16 22:00 12/04/16 09:44 Levetiracetam 250 mg PO 1,250 mg BID [facility] Administration Lisinopril 10 mg 12/01/16 10:00 12/04/16 09:45 Prinivil PO 10 mg DAILY [facility] Administration Mirtazapine 15 mg 11/30/16 22:00 12/03/16 21:49 Remeron - PO 15 mg HS [facility] Administration Nifedipine 60 mg 12/01/16 10:00 12/04/16 09:46 Procardia Xl - PO 60 mg DAILY [facility] Administration Pantoprazole Sodium 40 mg 12/01/16 10:00 12/04/16 09:45 Protonix - PO 40 mg DAILY [facility] Administration Potassium Chloride 10 meq 12/01/16 10:00 12/04/16 09:43 K-Dur - PO 10 meq DAILY [facility] Administration Spironolactone 25 mg 12/01/16 10:00 12/04/16 09:45 Aldactone - PO 25 mg DAILY [facility] Administration Tamsulosin HCl 0.4 mg 12/01/16 08:30 12/04/16 08:11 Flomax - PO 0.4 mg DAILY@0830 [facility] Administration Impression 1. CKD 2. epilepsy 3. hx CVA 4. DM 5. resp failure requiring bipap 6. hyperlipidemia 7. hx anemia 8. hx a-fib 9. hypokalemia 10. CAD 11. acute CHF Plan - cont with diuretics - monitor renal function closely - cont with bipap as needed - repeat labs in am monitor bicarb as he is diuresed dc donepezil which can cause bradycardia and av block MV
--- NOTE | 2016-12-04 12:47 | PN ---
Progress Note, Physician History of Present Illness: IN BED - Current Medication List Current Medications: Active Medications Acetaminophen (Tylenol -) 650 mg PO Q6H PRN PRN Reason: PAIN Last Admin: 12/03/16 08:20 Dose: 650 mg Albuterol/Ipratropium (Duoneb -) 1 amp NEB QIDR [facility] Last Admin: 12/04/16 06:10 Dose: 1 amp Aspirin (Ecotrin -) 81 mg PO DAILY [facility] Last Admin: 12/04/16 09:45 Dose: 81 mg Atorvastatin Calcium (Lipitor -) 10 mg PO HS [facility] Last Admin: 12/03/16 21:48 Dose: 10 mg Carvedilol (Coreg -) 12.5 mg PO BID [facility] Last Admin: 12/04/16 09:45 Dose: 12.5 mg Clopidogrel Bisulfate (Plavix -) 75 mg PO DAILY [facility] Last Admin: 12/04/16 09:45 Dose: 75 mg Docusate Sodium (Colace -) 100 mg PO DAILY [facility] Last Admin: 12/04/16 09:45 Dose: 100 mg Donepezil HCl (Aricept -) 5 mg PO HS [facility] Last Admin: 12/03/16 21:49 Dose: 5 mg Ferrous Sulfate (Feosol -) 325 mg PO BID [facility] Last Admin: 12/04/16 09:45 Dose: 325 mg Finasteride (Proscar -) 5 mg PO DAILY [facility] Last Admin: 12/04/16 09:45 Dose: 5 mg Furosemide (Lasix Injection -) 40 mg IVPUSH BID@0600,1400 [facility] Last Admin: 12/04/16 05:53 Dose: 40 mg Gabapentin (Neurontin -) 300 mg PO BID [facility] Last Admin: 12/04/16 09:49 Dose: 300 mg Hydrocortisone (Anusol 2.5% Hc Cream -) 1 applic TP BID [facility] Last Admin: 12/04/16 09:46 Dose: 1 applic Insulin Aspart (Novolog Vial Sliding Scale -) 1 vial SQ ACHS [facility] PRN Reason: Protocol Last Admin: 12/04/16 11:37 Dose: 4 units Isosorbide Mononitrate (Imdur -) 30 mg PO DAILY [facility] Last Admin: 12/04/16 09:43 Dose: 30 mg Levetiracetam 1,000 mg/ (Levetiracetam 250 mg) 1,250 mg PO BID [facility] Last Admin: 12/04/16 09:44 Dose: 1,250 mg Lisinopril (Prinivil) 10 mg PO DAILY [facility] Last Admin: 12/04/16 09:45 Dose: 10 mg Mirtazapine (Remeron -) 15 mg PO HS [facility] Last Admin: 12/03/16 21:49 Dose: 15 mg Nifedipine (Procardia Xl -) 60 mg PO DAILY [facility] Last Admin: 12/04/16 09:46 Dose: 60 mg Pantoprazole Sodium (Protonix -) 40 mg PO DAILY [facility] Last Admin: 12/04/16 09:45 Dose: 40 mg Potassium Chloride (K-Dur -) 10 meq PO DAILY [facility] Last Admin: 12/04/16 09:43 Dose: 10 meq Spironolactone (Aldactone -) 25 mg PO DAILY [facility] Last Admin: 12/04/16 09:45 Dose: 25 mg Tamsulosin HCl (Flomax -) 0.4 mg PO DAILY@0830 [facility] Last Admin: 12/04/16 08:11 Dose: 0.4 mg - Objective Vital Signs: Vital Signs Temperature 98 F 12/04/16 10:00 Pulse Rate 82 12/04/16 10:00 Respiratory Rate 18 12/04/16 10:00 Blood Pressure 146/63 12/04/16 10:00 O2 Sat by Pulse Oximetry (%) 97 12/04/16 09:00 Cardiovascular: Yes: S1, S2 Respiratory: Yes: Diminished, On Venti-Mask, Tachypnea Gastrointestinal: Yes: Normal Bowel Sounds, Soft Labs: CBC, BMP 12/03/16 05:35 12/03/16 05:35 INR, PTT INR 3.45 (0.82-1.09) H 12/01/16 05:40 Assessment/Plan - Problems (1) Acute on chronic systolic (congestive) heart failure Assessment/Plan: iv lasix bipap- check REPEAT ABG/CXR/LABS cardio on board pulm coreg aldactone imdur Code(s): I50.23 - ACUTE ON CHRONIC SYSTOLIC (CONGESTIVE) HEART FAILURE (2) Anemia Assessment/Plan: check iron panel Code(s): D64.9 - ANEMIA, UNSPECIFIED Qualifiers: Anemia type: unspecified type Qualified Code(s): D64.9 - Anemia, unspecified (3) CKD (chronic kidney disease) Assessment/Plan: renal eval currently cr is stable Code(s): N18.9 - CHRONIC KIDNEY DISEASE, UNSPECIFIED (4) Epilepsy Assessment/Plan: CHANGE IN MS-YESTERDAY--NEURO- CT OF HEAD--NAD ABG NOTED [facility] Code(s): G40.909 - EPILEPSY, UNSP, NOT INTRACTABLE, WITHOUT STATUS EPILEPTICUS (5) Diabetes mellitus Assessment/Plan: on insulin bgm hga1c noted Code(s): E11.9 - TYPE 2 DIABETES MELLITUS WITHOUT COMPLICATIONS Qualifiers: Diabetes mellitus type: type 2 Diabetes mellitus complication status: with hyperglycemia Qualified Code(s): E10.65 - Type 1 diabetes mellitus with hyperglycemia
[2016-12-04 13:41] LABS: ALLENS TEST POSITIVE; ART PUNCT SITE RIGHT RADIAL; ARTERIAL BLD GAS O2 SATURATION 89.7 % (90-98.9); ARTERIAL BLOOD GAS BASE EXCESS 8.4 meq/l (-2-2); ARTERIAL BLOOD GAS HCO3 34.7 meq/L (22-26); ARTERIAL BLOOD GAS PO2 61.1 mmHg (70-100); ARTERIAL BLOOD GAS pH 7.37 (7.35-7.45); LPM/O2% 3L; PT. ON O2? YES; TYPE OF O2 N/C
[2016-12-04 14:03] LABS: BASOPHIL 0.5 % (0-2.0); EOSINOPHIL 5.2 % (0-4.5); MCH 24.3 pg (25.7-33.7); MCHC 30.9 g/dl (32.0-35.9); MEAN CELL VOLUME 78.7 fl (80-96); MEAN PLT VOLUME 8.2 fl (7.5-11.1); NEUTROPHILS 78.5 % (42.8-82.8); PLATELET COUNT 169 K/MM3 (134-434); RDW 18.5 % (11.9-15.9); WHITE BLOOD COUNT 6.6 K/mm3 (4.0-10.0)
[2016-12-04 14:14] LABS: ALBUMIN 2.4 g/dl (3.4-5.0); BILIRUBIN,TOTAL 0.4 mg/dL (0.2-1.0); CALCIUM 7.9 mg/dL (8.5-10.1); COCKROFT - GAULT 41.76; CREATININE 1.8 mg/dL (0.7-1.3); TOT PROT 5.9 g/dl (6.4-8.2)
[2016-12-04 14:17] LABS: TROPONIN I 0.04 ng/ml (0.00-0.05)
[2016-12-04] MEDS: DONEPEZIL HCL 5 MG TABLET (FP) PO SCH (21:12)
[2016-12-04] MEDS: MIRTAZAPINE 15 MG TABLET (FP) PO SCH (21:12)
[2016-12-04] MEDS: ATORVASTATIN CA 10 MG TABLET (FP) PO SCH (21:12)
[2016-12-04] MEDS ORDERED: INSULIN (NOVOLOG) ASPART 100 UNITS/ML 10ML VIAL ONE (21:21)
[2016-12-05] MEDS: ALBUTEROL SO4 2.5/IPRATROPIUM 0.5 INH SOL 3 ML VIAL.NEB. NEB SCH ×4 (00:11→18:30)
[2016-12-05] MEDS: FUROSEMIDE 40 MG/4 ML INJECTABLE VIAL IVPUSH SCH ×2 (05:57→14:05)
[2016-12-05] MEDS: INSULIN SLIDING SCALE (NOVOLOG) 1 VIAL SQ SCH ×4 (06:24→22:25)
--- NOTE | 2016-12-05 06:50 | PN ---
Progress Note, Physician Chief Complaint: Pt alert; lying in bed; no complaints. 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 Upon ER arrival. Patient was noted to have an oxygen saturation of 98% on room air, respiratory rate of 18, heart rate of 60 and blood pressure measurement 144/78. Patient was recently in this ED for CHF exacerbation. Patient was placed on a high Lasix dosage, which allowed him to urinate a lot. He was ultimately discharged. Patient's states that for the course of a 48 hour period, the patient has been noted to have decreased urinary output (approximately 100 ccs), despite compliance with Lasix. No fever , chills, dysuria, abdominal pain, nausea, vomiting, testicular pain/swelling. Allergies: No Known Drug Allergies. Past Surgical History: Cholecystectomy. Right hand orthopedic surgery Social History: Never smoked. No ETOH and recreational drug use. Primary Care Physician: Dr. Srini Nichols Heavy Line Technician: Dr. Aj López - Current Medication List Current Medications: Active Medications Acetaminophen (Tylenol -) 650 mg PO Q6H PRN PRN Reason: PAIN Last Admin: 12/03/16 08:20 Dose: 650 mg Albuterol/Ipratropium (Duoneb -) 1 amp NEB QIDR [facility] Last Admin: 12/05/16 06:13 Dose: 1 amp Aspirin (Ecotrin -) 81 mg PO DAILY [facility] Last Admin: 12/04/16 09:45 Dose: 81 mg Atorvastatin Calcium (Lipitor -) 10 mg PO [facility] Last Admin: 12/04/16 21:12 Dose: 10 mg Carvedilol (Coreg -) 12.5 mg PO BID [facility] Last Admin: 12/04/16 21:12 Dose: 12.5 mg Clopidogrel Bisulfate (Plavix -) 75 mg PO DAILY [facility] Last Admin: 12/04/16 09:45 Dose: 75 mg Docusate Sodium (Colace -) 100 mg PO DAILY [facility] Last Admin: 12/04/16 09:45 Dose: 100 mg Donepezil HCl (Aricept -) 5 mg PO [facility] Last Admin: 05/07/17 21:12 Dose: 5 mg Ferrous Sulfate (Feosol -) 325 mg PO BID [facility] Last Admin: 12/04/16 21:12 Dose: 325 mg Finasteride (Proscar -) 5 mg PO DAILY [facility] Last Admin: 12/04/16 09:45 Dose: 5 mg Furosemide (Lasix Injection -) 40 mg IVPUSH BID@0600,1400 [facility] Last Admin: 12/05/16 05:57 Dose: 40 mg Gabapentin (Neurontin -) 300 mg PO BID [facility] Last Admin: 12/04/16 21:12 Dose: 300 mg Hydrocortisone (Anusol 2.5% Hc Cream -) 1 applic TP BID [facility] Last Admin: 12/04/16 21:12 Dose: 1 applic Insulin Aspart (Novolog Vial Sliding Scale -) 1 vial SQ ACHS [facility] PRN Reason: Protocol Last Admin: 12/05/16 06:24 Dose: Not Given Isosorbide Mononitrate (Imdur -) 30 mg PO DAILY [facility] Last Admin: 12/04/16 09:43 Dose: 30 mg Levetiracetam 1,000 mg/ (Levetiracetam 250 mg) 1,250 mg PO BID [facility] Last Admin: 12/04/16 21:12 Dose: 1,250 mg Lisinopril (Prinivil) 10 mg PO DAILY [facility] Last Admin: 12/04/16 09:45 Dose: 10 mg Mirtazapine (Remeron -) 15 mg PO HS [facility] Last Admin: 12/04/16 21:12 Dose: 15 mg Nifedipine (Procardia Xl -) 60 mg PO DAILY [facility] Last Admin: 12/04/16 09:46 Dose: 60 mg Pantoprazole Sodium (Protonix -) 40 mg PO DAILY [facility] Last Admin: 12/04/16 09:45 Dose: 40 mg Potassium Chloride (K-Dur -) 10 meq PO DAILY [facility] Last Admin: 12/04/16 09:43 Dose: 10 meq Spironolactone (Aldactone -) 25 mg PO DAILY [facility] Last Admin: 12/04/16 09:45 Dose: 25 mg Tamsulosin HCl (Flomax -) 0.4 mg PO DAILY@0830 [facility] Last Admin: 12/04/16 08:11 Dose: 0.4 mg - Objective Vital Signs: Vital Signs Temperature 97.7 F 12/05/16 03:01 Pulse Rate 63 12/05/16 03:01 Respiratory Rate 20 12/05/16 03:01 Blood Pressure 156/81 12/05/16 03:01 O2 Sat by Pulse Oximetry (%) 100 12/05/16 03:00 Constitutional: Yes: No Distress Eyes: Yes: WNL HENT: Yes: WNL Neck: Yes: WNL Cardiovascular: Yes: Pulse Irregular Respiratory: Yes: Regular Gastrointestinal: Yes: Soft ...Rectal Exam: Yes: Deferred Musculoskeletal: Yes: Muscle Weakness Extremities: Yes: Cool Edema: No Peripheral Pulses WNL: No Peripheral Pulses: Left Doralis Pedis: 1+, Right Dorsalis Pedis: 1+ Neurological: Yes: Weakness Psychiatric: Yes: Alert Labs: CBC, BMP 12/04/16 13:40 12/04/16 13:40 INR, PTT INR 3.45 (0.82-1.09) H 12/01/16 05:40 - ....Imaging Other: Image Reviewed (telemetrY:) Problem List - Problems (1) Abdominal pain Code(s): R10.9 - UNSPECIFIED ABDOMINAL PAIN Qualifiers: Qualified Code(s): R10.84 - Generalized abdominal pain (2) Atypical chest pain Code(s): R07.89 - OTHER CHEST PAIN (3) Chronic diastolic CHF (congestive heart failure) Code(s): I50.32 - CHRONIC DIASTOLIC (CONGESTIVE) HEART FAILURE (4) Chronic systolic CHF (congestive heart failure) Assessment/Plan: Remains on IV furosemide; on aldactone. F/u BUN/Cr, electrolytes. Consider stopping donepezil (propensity to result in bradycardia, conduction block). MUGA for LVEF when stable. Plan for pt to be seen by heart failure group ([facility]). Code(s): I50.22 - CHRONIC SYSTOLIC (CONGESTIVE) HEART FAILURE (5) MRSA (methicillin resistant staph aureus) culture positive Code(s): Z22.322 - CARRIER OR SUSPECTED CARRIER OF METHICILLIN RESIS STAPH (6) Mitral regurgitation Code(s): I34.0 - NONRHEUMATIC MITRAL (VALVE) INSUFFICIENCY (7) Pacemaker Assessment/Plan: atrial fibrillation:On carvedilol for HR control On ASA and clopidogrel (hx cardiac stents); ?unable to use anticoagulant due to GI bleed. Code(s): Z95.0 - PRESENCE OF CARDIAC PACEMAKER (8) Pulmonary hypertension Code(s): I27.2 - OTHER SECONDARY PULMONARY HYPERTENSION (9) Stented coronary artery Assessment/Plan: On ASA and clopidogrel. Aggressive management of lipids (statin; diet; exercise). Code(s): Z95.5 - PRESENCE OF CORONARY ANGIOPLASTY IMPLANT AND GRAFT (10) Acute on chronic renal insufficiency Assessment/Plan: f/u with manager story. Code(s): N28.9 - DISORDER OF KIDNEY AND URETER, UNSPECIFIED N18.9 - CHRONIC KIDNEY DISEASE, UNSPECIFIED
[2016-12-05 07:38] LABS: BASOPHIL 0.5 % (0-2.0); MCH 24.7 pg (25.7-33.7); MCHC 31.5 g/dl (32.0-35.9); MEAN CELL VOLUME 78.4 fl (80-96); MEAN PLT VOLUME 8.3 fl (7.5-11.1); PLATELET COUNT 167 K/MM3 (134-434); RDW 18.6 % (11.9-15.9); WHITE BLOOD COUNT 6.9 K/mm3 (4.0-10.0)
[2016-12-05] MEDS: TAMSULOSIN HCL 0.4 MG CAP.ER.24H (FP) PO SCH (08:19)
[2016-12-05 08:54] LABS: ALBUMIN 2.5 g/dl (3.4-5.0); CALCIUM 8.1 mg/dL (8.5-10.1)
--- NOTE | 2016-12-05 08:59 | EKG ---
Test Reason : Blood Pressure : / mmHG Vent. Rate : 060 BPM Atrial Rate : 039 BPM P-R Int : 000 ms QRS Dur : 174 ms QT Int : 500 ms P-R-T Axes : 000 -70 112 degrees QTc Int : 500 ms Ventricular-paced rhythm WITH OCCASIONAL PREMATURE VENTRICULAR COMPLEXES ABNORMAL ECG WHEN COMPARED WITH ECG OF 01-DEC-2016 09:57, ELECTRONIC VENTRICULAR PACEMAKER HAS REPLACED ATRIAL FIBRILLATION Confirmed by YARIEL BECERRA, ANNEMARIE ([id number]) on 12/05/2016 8:58:22 AM Referred By: Caridad BLACKBURN Confirmed By:ANNEMARIE SALDIVAR MD
[2016-12-05 09:00] LABS: BILIRUBIN,TOTAL 0.5 mg/dL (0.2-1.0); COCKROFT - GAULT 41.15; CREATININE 1.8 mg/dL (0.7-1.3); TOT PROT 6.3 g/dl (6.4-8.2)
[2016-12-05] MEDS ORDERED: levETIRAcetam 250 MG TABLET (FP) PO ONE ×2 (10:00→22:22)
[2016-12-05] MEDS ORDERED: levETIRAcetam 500 MG TABLET (FP) PO ONE ×2 (10:00→22:22)
[2016-12-05] MEDS: CLOPIDOGREL BISULFATE 75 MG TABLET (FP) PO SCH (10:16)
[2016-12-05] MEDS: FERROUS SO4 325 MG TABLET (FP) PO SCH ×2 (10:17→22:25)
[2016-12-05] MEDS: PANTOPRAZOLE 40 MG TABLET (FP) PO SCH (10:17)
[2016-12-05] MEDS: POTASSIUM CHLORIDE TABS 10 MEQ TABLET.ER (FP) PO SCH (10:17)
[2016-12-05] MEDS: FINASTERIDE 5 MG TABLET (FP) PO SCH (10:17)
[2016-12-05] MEDS: SPIRONOLACTONE 25 MG TABLET (FP) PO SCH (10:17)
[2016-12-05] MEDS: LEVETIRACETAM PO SCH ×2 (10:17→22:26)
[2016-12-05] MEDS: CARVEDILOL 12.5 MG TABLET (FP) PO SCH ×2 (10:18→22:26)
[2016-12-05] MEDS: ISOSORBIDE MONONITRATE 30 MG TAB.SR.24H (FP) PO SCH (10:18)
[2016-12-05] MEDS: LISINOPRIL 10 MG TABLET (FP) PO SCH (10:18)
[2016-12-05] MEDS: ASPIRIN COATED 81 MG TABLET.EC PO SCH (10:19)
[2016-12-05] MEDS: DOCUSATE SODIUM 100 MG CAPSULE (FP) PO SCH (10:19)
[2016-12-05] MEDS: GABAPENTIN 300 MG CAPSULE (FP) PO SCH ×2 (10:19→22:25)
[2016-12-05] MEDS: NIFEdipine E.R 60 MG TABLET (UD) PO SCH (10:19)
[2016-12-05] MEDS: HYDROCORTISONE 2.5% TOPICAL CREAM 30 GM TUBE TP SCH ×2 (10:20→22:28)
--- NOTE | 2016-12-05 10:52 | PN ---
Progress Note, Physician History of Present Illness: Pt seen and examined at bedside. He is awake and appears comfortable. He says that his breathing is starting to improve. - Current Medication List Current Medications: Active Medications Acetaminophen (Tylenol -) 650 mg PO Q6H PRN PRN Reason: PAIN Last Admin: 12/03/16 08:20 Dose: 650 mg Albuterol/Ipratropium (Duoneb -) 1 amp NEB QIDR [facility] Last Admin: 12/05/16 06:13 Dose: 1 amp Aspirin (Ecotrin -) 81 mg PO DAILY [facility] Last Admin: 12/05/16 10:19 Dose: 81 mg Atorvastatin Calcium (Lipitor -) 10 mg PO HS [facility] Last Admin: 12/04/16 21:12 Dose: 10 mg Carvedilol (Coreg -) 12.5 mg PO BID [facility] Last Admin: 12/05/16 10:18 Dose: 12.5 mg Clopidogrel Bisulfate (Plavix -) 75 mg PO DAILY [facility] Last Admin: 12/05/16 10:16 Dose: 75 mg Docusate Sodium (Colace -) 100 mg PO DAILY [facility] Last Admin: 12/05/16 10:19 Dose: 100 mg Donepezil HCl (Aricept -) 5 mg PO HS [facility] Last Admin: 12/04/16 21:12 Dose: 5 mg Ferrous Sulfate (Feosol -) 325 mg PO BID [facility] Last Admin: 12/05/16 10:17 Dose: 325 mg Finasteride (Proscar -) 5 mg PO DAILY [facility] Last Admin: 12/05/16 10:17 Dose: 5 mg Furosemide (Lasix Injection -) 40 mg IVPUSH BID@0600,1400 [facility] Last Admin: 12/05/16 05:57 Dose: 40 mg Gabapentin (Neurontin -) 300 mg PO BID [facility] Last Admin: 12/05/16 10:19 Dose: 300 mg Hydrocortisone (Anusol 2.5% Hc Cream -) 1 applic TP BID [facility] Last Admin: 12/05/16 10:20 Dose: 1 applic Insulin Aspart (Novolog Vial Sliding Scale -) 1 vial SQ ACHS [facility] PRN Reason: Protocol Last Admin: 12/05/16 06:24 Dose: Not Given Isosorbide Mononitrate (Imdur -) 30 mg PO DAILY [facility] Last Admin: 12/05/16 10:18 Dose: 30 mg Levetiracetam 1,000 mg/ (Levetiracetam 250 mg) 1,250 mg PO BID [facility] Last Admin: 12/05/16 10:17 Dose: 1,250 mg Lisinopril (Prinivil) 10 mg PO DAILY [facility] Last Admin: 12/05/16 10:18 Dose: 10 mg Mirtazapine (Remeron -) 15 mg PO HS [facility] Last Admin: 12/04/16 21:12 Dose: 15 mg Nifedipine (Procardia Xl -) 60 mg PO DAILY [facility] Last Admin: 12/05/16 10:19 Dose: 60 mg Pantoprazole Sodium (Protonix -) 40 mg PO DAILY [facility] Last Admin: 12/05/16 10:17 Dose: 40 mg Potassium Chloride (K-Dur -) 10 meq PO DAILY [facility] Last Admin: 12/05/16 10:17 Dose: 10 meq Spironolactone (Aldactone -) 25 mg PO DAILY [facility] Last Admin: 12/05/16 10:17 Dose: 25 mg Tamsulosin HCl (Flomax -) 0.4 mg PO DAILY@0830 [facility] Last Admin: 12/05/16 08:19 Dose: 0.4 mg - Objective Vital Signs: Vital Signs Temperature 98.1 F 12/05/16 06:00 Pulse Rate 62 12/05/16 06:00 Respiratory Rate 20 12/05/16 06:00 Blood Pressure 142/63 12/05/16 06:00 O2 Sat by Pulse Oximetry (%) 100 12/05/16 06:00 Constitutional: Yes: Calm Eyes: Yes: Conjunctiva Clear Cardiovascular: Yes: S1, S2 Respiratory: Yes: On Venti-Mask Gastrointestinal: Yes: Soft Genitourinary: Yes: Other (external catheter) Musculoskeletal: Yes: Muscle Weakness Edema: No Neurological: Yes: Oriented, Pre-Existing Deficit Psychiatric: Yes: Oriented Labs: CBC, BMP 12/05/16 05:35 12/05/16 05:35 INR, PTT INR 3.45 (0.82-1.09) H 12/01/16 05:40 Problem List - Problems (1) Epilepsy Code(s): G40.909 - EPILEPSY, UNSP, NOT INTRACTABLE, WITHOUT STATUS EPILEPTICUS (2) Acute respiratory failure Code(s): J96.00 - ACUTE RESPIRATORY FAILURE, UNSP W HYPOXIA OR HYPERCAPNIA (3) CHF (congestive heart failure) Code(s): I50.9 - HEART FAILURE, UNSPECIFIED Qualifiers: Qualified Code(s): I50.43 - Acute on chronic combined systolic ( congestive) and diastolic (congestive) heart failure (4) CKD (chronic kidney disease) Code(s): N18.9 - CHRONIC KIDNEY DISEASE, UNSPECIFIED (5) COPD (chronic obstructive pulmonary disease) Code(s): J44.9 - CHRONIC OBSTRUCTIVE PULMONARY DISEASE, UNSPECIFIED (6) CVA (cerebral infarction) Code(s): I63.9 - CEREBRAL INFARCTION, UNSPECIFIED Qualifiers: Qualified Code(s): I63.9 - Cerebral infarction, unspecified Assessment/Plan Current Medications Generic Name Dose Route Start Last Admin Trade Name Freq PRN Reason Stop Dose Admin Acetaminophen 650 mg 11/30/16 15:36 12/03/16 08:20 Tylenol - PO 650 mg Q6H PRN Administration PAIN Albuterol/Ipratropium 1 amp 11/30/16 18:00 12/05/16 06:13 Duoneb - NEB 1 amp QIDR [facility] Administration Aspirin 81 mg 12/01/16 10:00 12/05/16 10:19 Ecotrin - PO 81 mg DAILY [facility] Administration Atorvastatin Calcium 10 mg 11/30/16 22:00 12/04/16 21:12 Lipitor - PO 10 mg HS [facility] Administration Carvedilol 12.5 mg 11/30/16 22:00 12/05/16 10:18 Coreg - PO 12.5 mg BID [facility] Administration Clopidogrel Bisulfate 75 mg 12/01/16 10:00 12/05/16 10:16 Plavix - PO 75 mg DAILY [facility] Administration Docusate Sodium 100 mg 12/01/16 10:00 12/05/16 10:19 Colace - PO 100 mg DAILY [facility] Administration Donepezil HCl 5 mg 12/01/16 22:00 12/04/16 21:12 Aricept - PO 5 mg HS [facility] Administration Ferrous Sulfate 325 mg 11/30/16 22:00 12/05/16 10:17 Feosol - PO 325 mg BID [facility] Administration Finasteride 5 mg 12/01/16 10:00 12/05/16 10:17 Proscar - PO 5 mg DAILY [facility] Administration Furosemide 40 mg 12/01/16 06:00 12/05/16 05:57 Lasix Injection - IVPUSH 40 mg BID@0600,1400 [facility] Administration Gabapentin 300 mg 11/30/16 22:00 12/05/16 10:19 Neurontin - PO 300 mg BID [facility] Administration Hydrocortisone 1 applic 12/01/16 10:00 12/05/16 10:20 Anusol 2.5% Hc Cream - TP 1 applic BID [facility] Administration Insulin Aspart 1 vial 12/01/16 16:30 12/05/16 06:24 Novolog Vial Sliding Scale - SQ Not Given ACHS [facility] Protocol Isosorbide Mononitrate 30 mg 12/01/16 10:00 12/05/16 10:18 Imdur - PO 30 mg DAILY [facility] Administration Levetiracetam 1,000 mg/ 1,250 mg 11/30/16 22:00 12/05/16 10:17 Levetiracetam 250 mg PO 1,250 mg BID [facility] Administration Lisinopril 10 mg 12/01/16 10:00 12/05/16 10:18 Prinivil PO 10 mg DAILY [facility] Administration Mirtazapine 15 mg 11/30/16 22:00 12/04/16 21:12 Remeron - PO 15 mg HS [facility] Administration Nifedipine 60 mg 12/01/16 10:00 12/05/16 10:19 Procardia Xl - PO 60 mg DAILY [facility] Administration Pantoprazole Sodium 40 mg 12/01/16 10:00 12/05/16 10:17 Protonix - PO 40 mg DAILY [facility] Administration Potassium Chloride 10 meq 12/01/16 10:00 12/05/16 10:17 K-Dur - PO 10 meq DAILY [facility] Administration Spironolactone 25 mg 12/01/16 10:00 12/05/16 10:17 Aldactone - PO 25 mg DAILY [facility] Administration Tamsulosin HCl 0.4 mg 12/01/16 08:30 12/05/16 08:19 Flomax - PO 0.4 mg DAILY@0830 [facility] Administration Impression 1. CKD 2. epilepsy 3. hx CVA 4. DM 5. resp failure requiring bipap 6. hyperlipidemia 7. hx anemia 8. hx a-fib 9. hypokalemia 10. CAD 11. acute CHF Plan - will monitor labs and renal function - cont with diuretics - cont with bipap as needed - repeat labs in am - monitor bicarb while on diuretics - will follow Dr Jc
--- NOTE | 2016-12-05 11:14 | PN ---
Progress Note, Physician History of Present Illness: PULMONARY AWAKE,COMFORTABLE,LESS DYSPNEIC - Current Medication List Current Medications: Active Medications Acetaminophen (Tylenol -) 650 mg PO Q6H PRN PRN Reason: PAIN Last Admin: 12/03/16 08:20 Dose: 650 mg Albuterol/Ipratropium (Duoneb -) 1 amp NEB QIDR [facility] Last Admin: 12/05/16 06:13 Dose: 1 amp Aspirin (Ecotrin -) 81 mg PO DAILY [facility] Last Admin: 12/05/16 10:19 Dose: 81 mg Atorvastatin Calcium (Lipitor -) 10 mg PO HS [facility] Last Admin: 12/04/16 21:12 Dose: 10 mg Carvedilol (Coreg -) 12.5 mg PO BID [facility] Last Admin: 12/05/16 10:18 Dose: 12.5 mg Clopidogrel Bisulfate (Plavix -) 75 mg PO DAILY [facility] Last Admin: 12/05/16 10:16 Dose: 75 mg Docusate Sodium (Colace -) 100 mg PO DAILY [facility] Last Admin: 12/05/16 10:19 Dose: 100 mg Donepezil HCl (Aricept -) 5 mg PO HS [facility] Last Admin: 12/04/16 21:12 Dose: 5 mg Ferrous Sulfate (Feosol -) 325 mg PO BID [facility] Last Admin: 12/05/16 10:17 Dose: 325 mg Finasteride (Proscar -) 5 mg PO DAILY [facility] Last Admin: 12/05/16 10:17 Dose: 5 mg Furosemide (Lasix Injection -) 40 mg IVPUSH BID@0600,1400 [facility] Last Admin: 12/05/16 05:57 Dose: 40 mg Gabapentin (Neurontin -) 300 mg PO BID [facility] Last Admin: 12/05/16 10:19 Dose: 300 mg Hydrocortisone (Anusol 2.5% Hc Cream -) 1 applic TP BID [facility] Last Admin: 12/05/16 10:20 Dose: 1 applic Insulin Aspart (Novolog Vial Sliding Scale -) 1 vial SQ ACHS [facility] PRN Reason: Protocol Last Admin: 12/05/16 06:24 Dose: Not Given Isosorbide Mononitrate (Imdur -) 30 mg PO DAILY [facility] Last Admin: 12/05/16 10:18 Dose: 30 mg Levetiracetam 1,000 mg/ (Levetiracetam 250 mg) 1,250 mg PO BID [facility] Last Admin: 12/05/16 10:17 Dose: 1,250 mg Lisinopril (Prinivil) 10 mg PO DAILY [facility] Last Admin: 12/05/16 10:18 Dose: 10 mg Mirtazapine (Remeron -) 15 mg PO HS [facility] Last Admin: 12/04/16 21:12 Dose: 15 mg Nifedipine (Procardia Xl -) 60 mg PO DAILY [facility] Last Admin: 12/05/16 10:19 Dose: 60 mg Pantoprazole Sodium (Protonix -) 40 mg PO DAILY [facility] Last Admin: 12/05/16 10:17 Dose: 40 mg Potassium Chloride (K-Dur -) 10 meq PO DAILY [facility] Last Admin: 12/05/16 10:17 Dose: 10 meq Spironolactone (Aldactone -) 25 mg PO DAILY [facility] Last Admin: 12/05/16 10:17 Dose: 25 mg Tamsulosin HCl (Flomax -) 0.4 mg PO DAILY@0830 [facility] Last Admin: 12/05/16 08:19 Dose: 0.4 mg - Objective Vital Signs: Vital Signs Temperature 98.1 F 12/05/16 06:00 Pulse Rate 62 12/05/16 06:00 Respiratory Rate 20 12/05/16 06:00 Blood Pressure 142/63 12/05/16 06:00 O2 Sat by Pulse Oximetry (%) 100 12/05/16 06:00 Constitutional: Yes: Well Nourished, Calm Eyes: Yes: WNL HENT: Yes: WNL Neck: Yes: WNL Cardiovascular: Yes: Pulse Irregular, S1, S2 Respiratory: Yes: Rales (BIBASILAR RALES) Gastrointestinal: Yes: Normal Bowel Sounds, Soft Extremities: Yes: WNL Edema: No Labs: CBC, BMP 12/05/16 05:35 12/05/16 05:35 INR, PTT INR 3.45 (0.82-1.09) H 12/01/16 05:40 Assessment/Plan Problem List - Problems (1) Acute on chronic systolic and diastolic heart failure, NYHA class 1 Code(s): I50.43 - ACUTE ON CHRONIC COMBINED SYSTOLIC AND DIASTOLIC HRT FAIL (2) Mitral regurgitation Code(s): I34.0 - NONRHEUMATIC MITRAL (VALVE) INSUFFICIENCY (3) Pulmonary hypertension Code(s): I27.2 - OTHER SECONDARY PULMONARY HYPERTENSION (4) Pleural effusion Code(s): J90 - PLEURAL EFFUSION, NOT ELSEWHERE CLASSIFIED (5) Altered mental status Code(s): R41.82 - ALTERED MENTAL STATUS, UNSPECIFIED Qualifiers: Altered mental status type: disorientation Qualified Code(s): R41.0 - Disorientation, unspecified (6) Acute on chronic respiratory failure with hypoxia and hypercapnia Code(s): J96.21 - ACUTE AND CHRONIC RESPIRATORY FAILURE WITH HYPOXIA J96.22 - ACUTE AND CHRONIC RESPIRATORY FAILURE WITH HYPERCAPNIA Assessment/Plan Acute on Chronic Systolic/Diastolic Heart Failure Acute on Chronic Hypoxic and Hypercapneic Respiratory Failure Pulmonary HTN Pleural Effusions from above Atrial Fibrillation Moderate Mitral Regurgitation CKD h/o CVA - continue IV lasix - monitor urine output, creatinine - daily weights, I/Os - O2 to keep Spo2 >90% - BiPAP to assist in work of breathing - rate control - anticoagulation DR TORRES
--- NOTE | 2016-12-05 14:39 | PN ---
Progress Note, Physician History of Present Illness: The patient is a 75 year old male [place], with a significant past medical history of anemia, AL(1992), CHF, CKD, CVA(1997-right sided weakness), diabetes mellitus , hypertension, hyperlipidemia, dementia, GERD, and epilepsy who presents to the emergency department complaining of shortness of breath that began earlier today. patient recently discharged from hospital for simillar CHF exacorbation. - Current Medication List Current Medications: Active Medications Acetaminophen (Tylenol -) 650 mg PO Q6H PRN PRN Reason: PAIN Last Admin: 12/03/16 08:20 Dose: 650 mg Albuterol/Ipratropium (Duoneb -) 1 amp NEB QIDR [facility] Last Admin: 12/05/16 11:50 Dose: 1 amp Aspirin (Ecotrin -) 81 mg PO DAILY [facility] Last Admin: 12/05/16 10:19 Dose: 81 mg Atorvastatin Calcium (Lipitor -) 10 mg PO HS [facility] Last Admin: 12/04/16 21:12 Dose: 10 mg Carvedilol (Coreg -) 12.5 mg PO BID [facility] Last Admin: 12/05/16 10:18 Dose: 12.5 mg Clopidogrel Bisulfate (Plavix -) 75 mg PO DAILY [facility] Last Admin: 12/05/16 10:16 Dose: 75 mg Docusate Sodium (Colace -) 100 mg PO DAILY [facility] Last Admin: 12/05/16 10:19 Dose: 100 mg Donepezil HCl (Aricept -) 5 mg PO HS [facility] Last Admin: 12/04/16 21:12 Dose: 5 mg Ferrous Sulfate (Feosol -) 325 mg PO BID [facility] Last Admin: 12/05/16 10:17 Dose: 325 mg Finasteride (Proscar -) 5 mg PO DAILY [facility] Last Admin: 12/05/16 10:17 Dose: 5 mg Furosemide (Lasix Injection -) 40 mg IVPUSH BID@0600,1400 [facility] Last Admin: 12/05/16 05:57 Dose: 40 mg Gabapentin (Neurontin -) 300 mg PO BID [facility] Last Admin: 12/05/16 10:19 Dose: 300 mg Hydrocortisone (Anusol 2.5% Hc Cream -) 1 applic TP BID [facility] Last Admin: 12/05/16 10:20 Dose: 1 applic Insulin Aspart (Novolog Vial Sliding Scale -) 1 vial SQ ACHS [facility] PRN Reason: Protocol Last Admin: 12/05/16 11:46 Dose: 2 units Isosorbide Mononitrate (Imdur -) 30 mg PO DAILY [facility] Last Admin: 12/05/16 10:18 Dose: 30 mg Levetiracetam 1,000 mg/ (Levetiracetam 250 mg) 1,250 mg PO BID [facility] Last Admin: 12/05/16 10:17 Dose: 1,250 mg Lisinopril (Prinivil) 10 mg PO DAILY [facility] Last Admin: 12/05/16 10:18 Dose: 10 mg Mirtazapine (Remeron -) 15 mg PO HS [facility] Last Admin: 12/04/16 21:12 Dose: 15 mg Nifedipine (Procardia Xl -) 60 mg PO DAILY [facility] Last Admin: 12/05/16 10:19 Dose: 60 mg Pantoprazole Sodium (Protonix -) 40 mg PO DAILY [facility] Last Admin: 12/05/16 10:17 Dose: 40 mg Potassium Chloride (K-Dur -) 10 meq PO DAILY [facility] Last Admin: 12/05/16 10:17 Dose: 10 meq Spironolactone (Aldactone -) 25 mg PO DAILY [facility] Last Admin: 12/05/16 10:17 Dose: 25 mg Tamsulosin HCl (Flomax -) 0.4 mg PO DAILY@0830 [facility] Last Admin: 12/05/16 08:19 Dose: 0.4 mg - Objective Vital Signs: Vital Signs Temperature 98.1 F 12/05/16 06:00 Pulse Rate 62 12/05/16 06:00 Respiratory Rate 20 12/05/16 06:00 Blood Pressure 142/63 12/05/16 06:00 O2 Sat by Pulse Oximetry (%) 100 12/05/16 06:00 Eyes: Yes: WNL, Conjunctiva Clear, EOM Intact HENT: Yes: WNL, Atraumatic, Normocephalic Neck: Yes: WNL, Supple, Trachea Midline Cardiovascular: Yes: WNL, Regular Rate and Rhythm Respiratory: Yes: Rales Gastrointestinal: Yes: WNL, Normal Bowel Sounds Genitourinary: Yes: WNL Musculoskeletal: Yes: WNL Extremities: Yes: WNL Edema: No Integumentary: Yes: WNL Neurological: Yes: Alert ...Motor Strength: WNL Psychiatric: Yes: WNL Labs: CBC, BMP 12/05/16 05:35 12/05/16 05:35 INR, PTT INR 3.45 (0.82-1.09) H 12/01/16 05:40 Assessment/Plan - Problems (1) Abdominal pain Code(s): R10.9 - UNSPECIFIED ABDOMINAL PAIN Qualifiers: Qualified Code(s): R10.84 - Generalized abdominal pain (2) Atypical chest pain Code(s): R07.89 - OTHER CHEST PAIN (3) Chronic diastolic CHF (congestive heart failure) Code(s): I50.32 - CHRONIC DIASTOLIC (CONGESTIVE) HEART FAILURE (4) Chronic systolic CHF (congestive heart failure) Assessment/Plan: Remains on IV furosemide; will increase the dose to 60 BID since patient has mild sob and cracles on physical exam, cont aldactone. F/u BUN/Cr, electrolytes. Consider stopping donepezil (propensity to result in bradycardia, conduction block). MUGA for LVEF when stable. Plan for pt to be seen by heart failure group ([facility]). Code(s): I50.22 - CHRONIC SYSTOLIC (CONGESTIVE) HEART FAILURE (5) MRSA (methicillin resistant staph aureus) culture positive Code(s): Z22.322 - CARRIER OR SUSPECTED CARRIER OF METHICILLIN RESIS STAPH (6) Mitral regurgitation Code(s): I34.0 - NONRHEUMATIC MITRAL (VALVE) INSUFFICIENCY (7) Pacemaker Assessment/Plan: atrial fibrillation:On carvedilol for HR control On ASA and clopidogrel (hx cardiac stents); ?unable to use anticoagulant due to GI bleed. Code(s): Z95.0 - PRESENCE OF CARDIAC PACEMAKER (8) Pulmonary hypertension Code(s): I27.2 - OTHER SECONDARY PULMONARY HYPERTENSION (9) Stented coronary artery Assessment/Plan: On ASA and clopidogrel. Aggressive management of lipids (statin; diet; exercise). Code(s): Z95.5 - PRESENCE OF CORONARY ANGIOPLASTY IMPLANT AND GRAFT (10) Acute on chronic renal insufficiency Assessment/Plan: f/u with radar mechanic. Code(s): N28.9 - DISORDER OF KIDNEY AND URETER, UNSPECIFIED N18.9 - CHRONIC KIDNEY DISEASE, UNSPECIFIED
--- NOTE | 2016-12-05 22:18 | PN ---
Progress Note, Physician Chief Complaint: EVENTS AND CHART REVIEWED PATIENT WITH MULTIPLE ADMISSIONS WITH CHF/COPD/DM/OLD CVA - Current Medication List Current Medications: Active Medications Acetaminophen (Tylenol -) 650 mg PO Q6H PRN PRN Reason: PAIN Last Admin: 12/03/16 08:20 Dose: 650 mg Aspirin (Ecotrin -) 81 mg PO DAILY [facility] Last Admin: 12/05/16 10:19 Dose: 81 mg Atorvastatin Calcium (Lipitor -) 10 mg PO HS [facility] Last Admin: 12/04/16 21:12 Dose: 10 mg Carvedilol (Coreg -) 12.5 mg PO BID [facility] Last Admin: 12/05/16 10:18 Dose: 12.5 mg Clopidogrel Bisulfate (Plavix -) 75 mg PO DAILY [facility] Last Admin: 12/05/16 10:16 Dose: 75 mg Docusate Sodium (Colace -) 100 mg PO DAILY [facility] Last Admin: 12/05/16 10:19 Dose: 100 mg Donepezil HCl (Aricept -) 5 mg PO HS [facility] Last Admin: 12/04/16 21:12 Dose: 5 mg Ferrous Sulfate (Feosol -) 325 mg PO BID [facility] Last Admin: 12/05/16 10:17 Dose: 325 mg Finasteride (Proscar -) 5 mg PO DAILY [facility] Last Admin: 12/05/16 10:17 Dose: 5 mg Furosemide (Lasix Injection -) 60 mg IVPUSH BID@0600,1400 [facility] Gabapentin (Neurontin -) 300 mg PO BID [facility] Last Admin: 12/05/16 10:19 Dose: 300 mg Hydrocortisone (Anusol 2.5% Hc Cream -) 1 applic TP BID [facility] Last Admin: 12/05/16 10:20 Dose: 1 applic Insulin Aspart (Novolog Vial Sliding Scale -) 1 vial SQ ACHS [facility] PRN Reason: Protocol Last Admin: 12/05/16 17:01 Dose: 8 units Isosorbide Mononitrate (Imdur -) 30 mg PO DAILY [facility] Last Admin: 12/05/16 10:18 Dose: 30 mg Levetiracetam 1,000 mg/ (Levetiracetam 250 mg) 1,250 mg PO BID [facility] Last Admin: 12/05/16 10:17 Dose: 1,250 mg Lisinopril (Prinivil) 10 mg PO DAILY [facility] Last Admin: 12/05/16 10:18 Dose: 10 mg Mirtazapine (Remeron -) 15 mg PO HS [facility] Last Admin: 12/04/16 21:12 Dose: 15 mg Nifedipine (Procardia Xl -) 60 mg PO DAILY [facility] Last Admin: 12/05/16 10:19 Dose: 60 mg Pantoprazole Sodium (Protonix -) 40 mg PO DAILY [facility] Last Admin: 12/05/16 10:17 Dose: 40 mg Potassium Chloride (K-Dur -) 10 meq PO DAILY [facility] Last Admin: 12/05/16 10:17 Dose: 10 meq Spironolactone (Aldactone -) 25 mg PO DAILY [facility] Last Admin: 12/05/16 10:17 Dose: 25 mg Tamsulosin HCl (Flomax -) 0.4 mg PO DAILY@0830 [facility] Last Admin: 12/05/16 08:19 Dose: 0.4 mg - Objective Vital Signs: Vital Signs Temperature 97.5 F L 12/05/16 17:00 Pulse Rate 63 12/05/16 17:00 Respiratory Rate 18 12/05/16 17:00 Blood Pressure 130/60 12/05/16 17:00 O2 Sat by Pulse Oximetry (%) 100 12/05/16 09:00 Constitutional: Yes: Mild Distress Eyes: Yes: Other HENT: Yes: WNL Neck: Yes: WNL Cardiovascular: Yes: Pulse Irregular Respiratory: Yes: On Nasal O2, SOB Gastrointestinal: Yes: WNL Genitourinary: Yes: [place] Present Musculoskeletal: Yes: Muscle Weakness Extremities: Yes: Other Edema: Yes Edema: LLE: 2+, RLE: 2+ Integumentary: Yes: WNL Wound/Incision: Yes: Clean/Dry Neurological: Yes: Pre-Existing Deficit, Unsteady Gait, Weakness ...Motor Strength: LLE, RLE Psychiatric: Yes: Other Labs: CBC, BMP 12/05/16 05:35 12/05/16 05:35 INR, PTT INR 3.45 (0.82-1.09) H 12/01/16 05:40 Assessment/Plan ACUTE ON CHRONIC DIASTOLIC FAILURE ACUTE ON CHRONIC CHF AND COPD DIURESIS IV LASIX 02 SUPPORT DM BGM CHECKS CARDIOLOGY FOLLOW UP, DISCUSSED WITH DR HALEY ON MULTIPLE ADMISSIONS FOR CHF AND DYSPNEA . DR HALEY HAS MADE APPOINTMENTS FOR THE PATIENT TO F/U AT [facility] FOR CHF CLINIC.
[2016-12-05] MEDS: ATORVASTATIN CA 10 MG TABLET (FP) PO SCH (22:25)
[2016-12-05] MEDS: DONEPEZIL HCL 5 MG TABLET (FP) PO SCH (22:25)
[2016-12-05] MEDS: MIRTAZAPINE 15 MG TABLET (FP) PO SCH (22:25)
[2016-12-06] MEDS: FUROSEMIDE 40 MG/4 ML INJECTABLE VIAL IVPUSH SCH ×2 (06:38→14:00)
[2016-12-06] MEDS: INSULIN SLIDING SCALE (NOVOLOG) 1 VIAL SQ SCH ×4 (06:38→21:53)
[2016-12-06] MEDS ORDERED: levETIRAcetam 500 MG TABLET (FP) PO ONE ×2 (07:58→21:45)
[2016-12-06] MEDS ORDERED: levETIRAcetam 250 MG TABLET (FP) PO ONE ×3 (07:58→21:56)
[2016-12-06 08:02] LABS: MCH 24.8 pg (25.7-33.7); MCHC 31.5 g/dl (32.0-35.9); MEAN CELL VOLUME 78.8 fl (80-96); MEAN PLT VOLUME 8.4 fl (7.5-11.1); PLATELET COUNT 181 K/MM3 (134-434); RDW 18.5 % (11.9-15.9); WHITE BLOOD COUNT 7.2 K/mm3 (4.0-10.0)
[2016-12-06 08:44] LABS: INR 1.21 (0.82-1.09); PROTHROMBIN TIME (PATIENT) 13.4 SEC (9.98-11.88)
[2016-12-06 08:50] LABS: ALBUMIN 2.7 g/dl (3.4-5.0); CALCIUM 8.1 mg/dL (8.5-10.1)
[2016-12-06 08:53] LABS: BILIRUBIN,TOTAL 0.3 mg/dL (0.2-1.0); COCKROFT - GAULT 42.4; CREATININE 1.8 mg/dL (0.7-1.3)
[2016-12-06] MEDS: TAMSULOSIN HCL 0.4 MG CAP.ER.24H (FP) PO SCH (09:50)
[2016-12-06] MEDS: SPIRONOLACTONE 25 MG TABLET (FP) PO SCH (09:50)
[2016-12-06] MEDS: POTASSIUM CHLORIDE TABS 10 MEQ TABLET.ER (FP) PO SCH (09:50)
[2016-12-06] MEDS: GABAPENTIN 300 MG CAPSULE (FP) PO SCH ×2 (09:51→21:52)
[2016-12-06] MEDS: PANTOPRAZOLE 40 MG TABLET (FP) PO SCH (09:51)
[2016-12-06] MEDS: ASPIRIN COATED 81 MG TABLET.EC PO SCH (09:51)
[2016-12-06] MEDS: CLOPIDOGREL BISULFATE 75 MG TABLET (FP) PO SCH (09:51)
[2016-12-06] MEDS: DOCUSATE SODIUM 100 MG CAPSULE (FP) PO SCH (09:51)
[2016-12-06] MEDS: FERROUS SO4 325 MG TABLET (FP) PO SCH ×2 (09:51→21:53)
[2016-12-06] MEDS: LISINOPRIL 10 MG TABLET (FP) PO SCH (09:51)
[2016-12-06] MEDS: CARVEDILOL 12.5 MG TABLET (FP) PO SCH ×2 (09:51→21:52)
[2016-12-06] MEDS: ISOSORBIDE MONONITRATE 30 MG TAB.SR.24H (FP) PO SCH (09:52)
[2016-12-06] MEDS: NIFEdipine E.R 60 MG TABLET (UD) PO SCH (09:52)
[2016-12-06] MEDS: FINASTERIDE 5 MG TABLET (FP) PO SCH (09:52)
[2016-12-06] MEDS: LEVETIRACETAM PO SCH ×2 (09:52→21:53)
[2016-12-06] MEDS: HYDROCORTISONE 2.5% TOPICAL CREAM 30 GM TUBE TP SCH ×2 (09:55→22:00)
--- NOTE | 2016-12-06 11:03 | PN ---
Progress Note, Physician History of Present Illness: PULMONARY ALERT,NAD,-CONGESTION,-CP - Current Medication List Current Medications: Active Medications Acetaminophen (Tylenol -) 650 mg PO Q6H PRN PRN Reason: PAIN Last Admin: 12/03/16 08:20 Dose: 650 mg Albuterol/Ipratropium (Duoneb -) 1 amp NEB QIDR [facility] Aspirin (Ecotrin -) 81 mg PO DAILY [facility] Last Admin: 12/06/16 09:51 Dose: 81 mg Atorvastatin Calcium (Lipitor -) 10 mg PO HS [facility] Last Admin: 12/05/16 22:25 Dose: 10 mg Carvedilol (Coreg -) 12.5 mg PO BID [facility] Last Admin: 12/06/16 09:51 Dose: 12.5 mg Clopidogrel Bisulfate (Plavix -) 75 mg PO DAILY [facility] Last Admin: 12/06/16 09:51 Dose: 75 mg Docusate Sodium (Colace -) 100 mg PO DAILY [facility] Last Admin: 12/06/16 09:51 Dose: 100 mg Donepezil HCl (Aricept -) 5 mg PO HS [facility] Last Admin: 12/05/16 22:25 Dose: 5 mg Ferrous Sulfate (Feosol -) 325 mg PO BID [facility] Last Admin: 12/06/16 09:51 Dose: 325 mg Finasteride (Proscar -) 5 mg PO DAILY [facility] Last Admin: 12/06/16 09:52 Dose: 5 mg Furosemide (Lasix Injection -) 60 mg IVPUSH BID@0600,1400 [facility] Last Admin: 12/06/16 06:38 Dose: 60 mg Gabapentin (Neurontin -) 300 mg PO BID [facility] Last Admin: 12/06/16 09:51 Dose: 300 mg Hydrocortisone (Anusol 2.5% Hc Cream -) 1 applic TP BID [facility] Last Admin: 12/06/16 09:55 Dose: 1 applic Insulin Aspart (Novolog Vial Sliding Scale -) 1 vial SQ ACHS [facility] PRN Reason: Protocol Last Admin: 12/06/16 06:38 Dose: 2 units Isosorbide Mononitrate (Imdur -) 30 mg PO DAILY [facility] Last Admin: 12/06/16 09:52 Dose: 30 mg Levetiracetam 1,000 mg/ (Levetiracetam 250 mg) 1,250 mg PO BID [facility] Last Admin: 12/06/16 09:52 Dose: 1,250 mg Lisinopril (Prinivil) 10 mg PO DAILY [facility] Last Admin: 12/06/16 09:51 Dose: 10 mg Mirtazapine (Remeron -) 15 mg PO HS [facility] Last Admin: 12/05/16 22:25 Dose: 15 mg Nifedipine (Procardia Xl -) 60 mg PO DAILY [facility] Last Admin: 12/06/16 09:52 Dose: 60 mg Pantoprazole Sodium (Protonix -) 40 mg PO DAILY [facility] Last Admin: 12/06/16 09:51 Dose: 40 mg Potassium Chloride (K-Dur -) 10 meq PO DAILY [facility] Last Admin: 12/06/16 09:50 Dose: 10 meq Spironolactone (Aldactone -) 25 mg PO DAILY [facility] Last Admin: 12/06/16 09:50 Dose: 25 mg Tamsulosin HCl (Flomax -) 0.4 mg PO DAILY@0830 [facility] Last Admin: 12/06/16 09:50 Dose: 0.4 mg - Objective Vital Signs: Vital Signs Temperature 97.9 F 12/06/16 07:39 Pulse Rate 63 12/06/16 07:39 Respiratory Rate 20 12/06/16 07:42 Blood Pressure 143/72 12/06/16 07:39 O2 Sat by Pulse Oximetry (%) 99 12/06/16 07:42 Constitutional: Yes: Well Nourished, Calm Eyes: Yes: WNL HENT: Yes: WNL Neck: Yes: WNL Cardiovascular: Yes: Pulse Irregular, S1, S2 Respiratory: Yes: Diminished Gastrointestinal: Yes: Normal Bowel Sounds, Soft Extremities: Yes: WNL Edema: No Labs: CBC, BMP 12/06/16 06:00 12/06/16 06:00 INR, PTT INR 1.21 (0.82-1.09) H D 12/06/16 06:00 Assessment/Plan Problem List - Problems (1) Acute on chronic systolic and diastolic heart failure, NYHA class 1 Code(s): I50.43 - ACUTE ON CHRONIC COMBINED SYSTOLIC AND DIASTOLIC HRT FAIL (2) Mitral regurgitation Code(s): I34.0 - NONRHEUMATIC MITRAL (VALVE) INSUFFICIENCY (3) Pulmonary hypertension Code(s): I27.2 - OTHER SECONDARY PULMONARY HYPERTENSION (4) Pleural effusion Code(s): J90 - PLEURAL EFFUSION, NOT ELSEWHERE CLASSIFIED (5) Altered mental status Code(s): R41.82 - ALTERED MENTAL STATUS, UNSPECIFIED Qualifiers: Altered mental status type: disorientation Qualified Code(s): R41.0 - Disorientation, unspecified (6) Acute on chronic respiratory failure with hypoxia and hypercapnia Code(s): J96.21 - ACUTE AND CHRONIC RESPIRATORY FAILURE WITH HYPOXIA J96.22 - ACUTE AND CHRONIC RESPIRATORY FAILURE WITH HYPERCAPNIA Assessment/Plan Acute on Chronic Systolic/Diastolic Heart Failure improvimg Acute on Chronic Hypoxic and Hypercapneic Respiratory Failure improving Pulmonary HTN Pleural Effusions from above Atrial Fibrillation Moderate Mitral Regurgitation CKD h/o CVA - continue IV lasix - monitor urine output, creatinine - daily weights, I/Os - O2 to keep Spo2 >90% - BiPAP prn - rate control - anticoagulation DR TORRES
[2016-12-06] MEDS: ALBUTEROL SO4 2.5/IPRATROPIUM 0.5 INH SOL 3 ML VIAL.NEB. NEB SCH ×3 (11:40→23:35)
--- NOTE | 2016-12-06 15:22 | PN ---
Progress Note, Physician Chief Complaint: Pt says he is tired, and did not sleep well; moves (non-CVA affected) limbs on request. O2 sat >90. 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 Upon ER arrival. Patient was noted to have an oxygen saturation of 98% on room air, respiratory rate of 18, heart rate of 60 and blood pressure measurement 144/78. Patient was recently in this ED for CHF exacerbation. Patient was placed on a high Lasix dosage, which allowed him to urinate a lot. He was ultimately discharged. Patient's states that for the course of a 48 hour period, the patient has been noted to have decreased urinary output (approximately 100 ccs), despite compliance with Lasix. No fever , chills, dysuria, abdominal pain, nausea, vomiting, testicular pain/swelling. Allergies: No Known Drug Allergies. Past Surgical History: Cholecystectomy. Right hand orthopedic surgery Social History: Never smoked. No ETOH and recreational drug use. Primary Care Physician: Dr. Srini Nichols Supervisor Joiners: Dr. Aj López - Current Medication List Current Medications: Active Medications Acetaminophen (Tylenol -) 650 mg PO Q6H PRN PRN Reason: PAIN Last Admin: 12/03/16 08:20 Dose: 650 mg Albuterol/Ipratropium (Duoneb -) 1 amp NEB QIDR [facility] Last Admin: 12/06/16 11:40 Dose: 1 amp Aspirin (Ecotrin -) 81 mg PO DAILY [facility] Last Admin: 12/06/16 09:51 Dose: 81 mg Atorvastatin Calcium (Lipitor -) 10 mg PO HS [facility] Last Admin: 12/05/16 22:25 Dose: 10 mg Carvedilol (Coreg -) 12.5 mg PO BID [facility] Last Admin: 12/06/16 09:51 Dose: 12.5 mg Clopidogrel Bisulfate (Plavix -) 75 mg PO DAILY [facility] Last Admin: 12/06/16 09:51 Dose: 75 mg Docusate Sodium (Colace -) 100 mg PO DAILY [facility] Last Admin: 12/06/16 09:51 Dose: 100 mg Donepezil HCl (Aricept -) 5 mg PO HS [facility] Last Admin: 12/05/16 22:25 Dose: 5 mg Ferrous Sulfate (Feosol -) 325 mg PO BID [facility] Last Admin: 12/06/16 09:51 Dose: 325 mg Finasteride (Proscar -) 5 mg PO DAILY [facility] Last Admin: 12/06/16 09:52 Dose: 5 mg Furosemide (Lasix Injection -) 60 mg IVPUSH BID@0600,1400 [facility] Last Admin: 12/06/16 14:00 Dose: 60 mg Gabapentin (Neurontin -) 300 mg PO BID [facility] Last Admin: 12/06/16 09:51 Dose: 300 mg Hydrocortisone (Anusol 2.5% Hc Cream -) 1 applic TP BID [facility] Last Admin: 12/06/16 09:55 Dose: 1 applic Insulin Aspart (Novolog Vial Sliding Scale -) 1 vial SQ ACHS [facility] PRN Reason: Protocol Last Admin: 12/06/16 06:38 Dose: 2 units Isosorbide Mononitrate (Imdur -) 30 mg PO DAILY [facility] Last Admin: 12/06/16 09:52 Dose: 30 mg Levetiracetam 1,000 mg/ (Levetiracetam 250 mg) 1,250 mg PO BID [facility] Last Admin: 12/06/16 09:52 Dose: 1,250 mg Lisinopril (Prinivil) 10 mg PO DAILY [facility] Last Admin: 12/06/16 09:51 Dose: 10 mg Mirtazapine (Remeron -) 15 mg PO HS [facility] Last Admin: 12/05/16 22:25 Dose: 15 mg Nifedipine (Procardia Xl -) 60 mg PO DAILY [facility] Last Admin: 12/06/16 09:52 Dose: 60 mg Pantoprazole Sodium (Protonix -) 40 mg PO DAILY [facility] Last Admin: 12/06/16 09:51 Dose: 40 mg Potassium Chloride (K-Dur -) 10 meq PO DAILY [facility] Last Admin: 12/06/16 09:50 Dose: 10 meq Spironolactone (Aldactone -) 25 mg PO DAILY [facility] Last Admin: 12/06/16 09:50 Dose: 25 mg Tamsulosin HCl (Flomax -) 0.4 mg PO DAILY@0830 [facility] Last Admin: 12/06/16 09:50 Dose: 0.4 mg - Objective Vital Signs: Vital Signs Temperature 98 F 12/06/16 14:10 Pulse Rate 61 12/06/16 14:10 Respiratory Rate 20 12/06/16 14:10 Blood Pressure 114/54 12/06/16 14:10 O2 Sat by Pulse Oximetry (%) 96 12/06/16 12:17 Constitutional: Yes: Anxious Eyes: Yes: WNL HENT: Yes: WNL Neck: Yes: WNL Cardiovascular: Yes: S1, S2 (split) Respiratory: Yes: Regular Gastrointestinal: Yes: Soft ...Rectal Exam: Yes: Deferred Genitourinary: No: Anuria Musculoskeletal: Yes: Muscle Weakness Extremities: Yes: Cool Edema: No Peripheral Pulses WNL: No Neurological: Yes: Alert Psychiatric: Yes: Alert Labs: CBC, BMP 12/06/16 06:00 12/06/16 06:00 INR, PTT INR 1.21 (0.82-1.09) H D 12/06/16 06:00 Abnormal Lab Results 12/06/16 12/06/16 12/06/16 06:00 06:00 06:00 Hgb 10.1 L Hct 32.2 L MCV 78.8 L MCHC 31.5 L RDW 18.5 H INR 1.21 H D Carbon Dioxide 37 H Anion Gap 7 L BUN 42 H Creatinine 1.8 H Calcium 8.1 L AST 13 L Albumin 2.7 L Problem List - Problems (1) Abdominal pain Code(s): R10.9 - UNSPECIFIED ABDOMINAL PAIN Qualifiers: Qualified Code(s): R10.84 - Generalized abdominal pain (2) Atypical chest pain Code(s): R07.89 - OTHER CHEST PAIN (3) Chronic diastolic CHF (congestive heart failure) Code(s): I50.32 - CHRONIC DIASTOLIC (CONGESTIVE) HEART FAILURE (4) Chronic systolic CHF (congestive heart failure) Assessment/Plan: Remains on IV furosemide; on aldactone. F/u BUN/Cr, electrolytes. Consider stopping donepezil (propensity to result in bradycardia, conduction block). MUGA for LVEF when stable. [facility] Code(s): I50.22 - CHRONIC SYSTOLIC (CONGESTIVE) HEART FAILURE (5) MRSA (methicillin resistant staph aureus) culture positive Code(s): Z22.322 - CARRIER OR SUSPECTED CARRIER OF METHICILLIN RESIS STAPH (6) Mitral regurgitation Code(s): I34.0 - NONRHEUMATIC MITRAL (VALVE) INSUFFICIENCY (7) Pacemaker Assessment/Plan: atrial fibrillation:On carvedilol for HR control On ASA and clopidogrel (hx cardiac stents); ?unable to use anticoagulant due to GI bleed. Code(s): Z95.0 - PRESENCE OF CARDIAC PACEMAKER (8) Pulmonary hypertension Assessment/Plan: On BiPAP. F/u with protective services officer. Code(s): I27.2 - OTHER SECONDARY PULMONARY HYPERTENSION (9) Stented coronary artery Assessment/Plan: On ASA and clopidogrel. Aggressive management of lipids (statin; diet; exercise). Code(s): Z95.5 - PRESENCE OF CORONARY ANGIOPLASTY IMPLANT AND GRAFT (10) Acute on chronic renal insufficiency Assessment/Plan: f/u with assembly mechanic. Code(s): N28.9 - DISORDER OF KIDNEY AND URETER, UNSPECIFIED N18.9 - CHRONIC KIDNEY DISEASE, UNSPECIFIED
--- NOTE | 2016-12-06 20:02 | PN ---
Progress Note, Physician Chief Complaint: ASLEEP BEDRIDDEN ON 02 CONSTANTLY MULTIPLE ADMISSIONS FOR CHF AND COPD - Current Medication List Current Medications: Active Medications Acetaminophen (Tylenol -) 650 mg PO Q6H PRN PRN Reason: PAIN Last Admin: 12/03/16 08:20 Dose: 650 mg Albuterol/Ipratropium (Duoneb -) 1 amp NEB QIDR [facility] Last Admin: 12/06/16 18:00 Dose: 1 amp Aspirin (Ecotrin -) 81 mg PO DAILY [facility] Last Admin: 12/06/16 09:51 Dose: 81 mg Atorvastatin Calcium (Lipitor -) 10 mg PO HS [facility] Last Admin: 12/05/16 22:25 Dose: 10 mg Carvedilol (Coreg -) 12.5 mg PO BID [facility] Last Admin: 12/06/16 09:51 Dose: 12.5 mg Clopidogrel Bisulfate (Plavix -) 75 mg PO DAILY [facility] Last Admin: 12/06/16 09:51 Dose: 75 mg Docusate Sodium (Colace -) 100 mg PO DAILY [facility] Last Admin: 12/06/16 09:51 Dose: 100 mg Donepezil HCl (Aricept -) 5 mg PO HS [facility] Last Admin: 12/05/16 22:25 Dose: 5 mg Ferrous Sulfate (Feosol -) 325 mg PO BID [facility] Last Admin: 12/06/16 09:51 Dose: 325 mg Finasteride (Proscar -) 5 mg PO DAILY [facility] Last Admin: 12/06/16 09:52 Dose: 5 mg Furosemide (Lasix Injection -) 60 mg IVPUSH BID@0600,1400 [facility] Last Admin: 12/06/16 14:00 Dose: 60 mg Gabapentin (Neurontin -) 300 mg PO BID [facility] Last Admin: 12/06/16 09:51 Dose: 300 mg Hydrocortisone (Anusol 2.5% Hc Cream -) 1 applic TP BID [facility] Last Admin: 12/06/16 09:55 Dose: 1 applic Insulin Aspart (Novolog Vial Sliding Scale -) 1 vial SQ ACHS [facility] PRN Reason: Protocol Last Admin: 12/06/16 16:56 Dose: 4 units Isosorbide Mononitrate (Imdur -) 30 mg PO DAILY [facility] Last Admin: 12/06/16 09:52 Dose: 30 mg Levetiracetam 1,000 mg/ (Levetiracetam 250 mg) 1,250 mg PO BID [facility] Last Admin: 12/06/16 09:52 Dose: 1,250 mg Lisinopril (Prinivil) 10 mg PO DAILY [facility] Last Admin: 12/06/16 09:51 Dose: 10 mg Mirtazapine (Remeron -) 15 mg PO HS [facility] Last Admin: 12/05/16 22:25 Dose: 15 mg Nifedipine (Procardia Xl -) 60 mg PO DAILY [facility] Last Admin: 12/06/16 09:52 Dose: 60 mg Pantoprazole Sodium (Protonix -) 40 mg PO DAILY [facility] Last Admin: 12/06/16 09:51 Dose: 40 mg Potassium Chloride (K-Dur -) 10 meq PO DAILY [facility] Last Admin: 12/06/16 09:50 Dose: 10 meq Spironolactone (Aldactone -) 25 mg PO DAILY [facility] Last Admin: 12/06/16 09:50 Dose: 25 mg Tamsulosin HCl (Flomax -) 0.4 mg PO DAILY@0830 [facility] Last Admin: 12/06/16 09:50 Dose: 0.4 mg - Objective Vital Signs: Vital Signs Temperature 98 F 12/06/16 14:10 Pulse Rate 61 12/06/16 14:10 Respiratory Rate 20 12/06/16 14:10 Blood Pressure 114/54 12/06/16 14:10 O2 Sat by Pulse Oximetry (%) 95 12/06/16 15:39 Constitutional: Yes: Moderate Distress Eyes: Yes: Other HENT: Yes: WNL Neck: Yes: WNL Cardiovascular: Yes: Pulse Irregular, Murmur Respiratory: Yes: Diminished, On Nasal O2 Gastrointestinal: Yes: WNL Genitourinary: Yes: [place] Present, Incontinence Musculoskeletal: Yes: Muscle Weakness Extremities: Yes: WNL Edema: No Peripheral Pulses WNL: Yes Integumentary: Yes: WNL Wound/Incision: Yes: Clean/Dry Neurological: Yes: Pre-Existing Deficit ...Motor Strength: LLE, RLE Psychiatric: Yes: Other Labs: CBC, BMP 12/06/16 06:00 12/06/16 06:00 INR, PTT INR 1.21 (0.82-1.09) H D 12/06/16 06:00 Assessment/Plan FAMILY AND PATIENT EXPECTATIONS ARE NOT PRACTICAL PATIENT HAS BEEN ADMITTED AND DISCHARGED HOME TO RETURN A FEW DAYS LATER. I SPOKE TO THE FAMILY MULTIPLE TIMES AND THEY AGREE THAT THEIR DAD SHOULD BE DNR/DNI ON PALLIATIVE/COMFORT CARE. WE ADMITTED HIM TO [facility] FOR CARDIO/PULM REHAB TO HAVE THE PATIENT RETURN TO THE ED FOR DYSPNEA AND READMITTED 2X SINCE THE [facility] ADMISSION 1 MONTH AGO. I SPOKE TO CARDIOLOGY WHO INITIALIZED [facility] FOR CHF OUTPATIENT CLINIC. THE PATIENT WILL NEVER SEE THEM AT [place] BECAUSE HE CALLS 911 WEEKLY FOR CHEST PAIN AND DYSPNEA AND GETS ADMITTED HERE AT [facility]. AT THIS POINT I FEEL PATIENT SHOULD BE DNR/DNI AND IN HOSPICE VS A [facility] WITH REHAB AND COMFORT CARE. HIS CHF/COPD/CVA ARE NOT REVERSIBLE AND WILL WORSEN. POOR PROGNOSIS WITH POOR QUALITY OF LIFE.
--- NOTE | 2016-12-06 20:02 | PN ---
Progress Note, Physician History of Present Illness: Pt seen and examines at bedside. He is more awake and alert. He had decreased urine output a meadows was placed. He was in retention. - Current Medication List Current Medications: Active Medications Acetaminophen (Tylenol -) 650 mg PO Q6H PRN PRN Reason: PAIN Last Admin: 12/03/16 08:20 Dose: 650 mg Albuterol/Ipratropium (Duoneb -) 1 amp NEB QIDR [facility] Last Admin: 12/06/16 18:00 Dose: 1 amp Aspirin (Ecotrin -) 81 mg PO DAILY [facility] Last Admin: 12/06/16 09:51 Dose: 81 mg Atorvastatin Calcium (Lipitor -) 10 mg PO HS [facility] Last Admin: 12/05/16 22:25 Dose: 10 mg Carvedilol (Coreg -) 12.5 mg PO BID [facility] Last Admin: 12/06/16 09:51 Dose: 12.5 mg Clopidogrel Bisulfate (Plavix -) 75 mg PO DAILY [facility] Last Admin: 12/06/16 09:51 Dose: 75 mg Docusate Sodium (Colace -) 100 mg PO DAILY [facility] Last Admin: 12/06/16 09:51 Dose: 100 mg Donepezil HCl (Aricept -) 5 mg PO HS [facility] Last Admin: 12/05/16 22:25 Dose: 5 mg Ferrous Sulfate (Feosol -) 325 mg PO BID [facility] Last Admin: 12/06/16 09:51 Dose: 325 mg Finasteride (Proscar -) 5 mg PO DAILY [facility] Last Admin: 12/06/16 09:52 Dose: 5 mg Furosemide (Lasix Injection -) 60 mg IVPUSH BID@0600,1400 [facility] Last Admin: 12/06/16 14:00 Dose: 60 mg Gabapentin (Neurontin -) 300 mg PO BID [facility] Last Admin: 12/06/16 09:51 Dose: 300 mg Hydrocortisone (Anusol 2.5% Hc Cream -) 1 applic TP BID [facility] Last Admin: 12/06/16 09:55 Dose: 1 applic Insulin Aspart (Novolog Vial Sliding Scale -) 1 vial SQ ACHS [facility] PRN Reason: Protocol Last Admin: 12/06/16 16:56 Dose: 4 units Isosorbide Mononitrate (Imdur -) 30 mg PO DAILY [facility] Last Admin: 12/06/16 09:52 Dose: 30 mg Levetiracetam 1,000 mg/ (Levetiracetam 250 mg) 1,250 mg PO BID [facility] Last Admin: 12/06/16 09:52 Dose: 1,250 mg Lisinopril (Prinivil) 10 mg PO DAILY [facility] Last Admin: 12/06/16 09:51 Dose: 10 mg Mirtazapine (Remeron -) 15 mg PO HS [facility] Last Admin: 12/05/16 22:25 Dose: 15 mg Nifedipine (Procardia Xl -) 60 mg PO DAILY [facility] Last Admin: 12/06/16 09:52 Dose: 60 mg Pantoprazole Sodium (Protonix -) 40 mg PO DAILY [facility] Last Admin: 12/06/16 09:51 Dose: 40 mg Potassium Chloride (K-Dur -) 10 meq PO DAILY [facility] Last Admin: 12/06/16 09:50 Dose: 10 meq Spironolactone (Aldactone -) 25 mg PO DAILY [facility] Last Admin: 12/06/16 09:50 Dose: 25 mg Tamsulosin HCl (Flomax -) 0.4 mg PO DAILY@0830 [facility] Last Admin: 12/06/16 09:50 Dose: 0.4 mg - Objective Vital Signs: Vital Signs Temperature 98 F 12/06/16 14:10 Pulse Rate 61 12/06/16 14:10 Respiratory Rate 20 12/06/16 14:10 Blood Pressure 114/54 12/06/16 14:10 O2 Sat by Pulse Oximetry (%) 95 12/06/16 15:39 Constitutional: Yes: Calm HENT: Yes: Atraumatic Cardiovascular: Yes: S1, S2 Respiratory: Yes: On BiPap Gastrointestinal: Yes: Soft Genitourinary: Yes: [place]ows Present Musculoskeletal: Yes: Muscle Weakness Edema: No Neurological: Yes: Pre-Existing Deficit Labs: CBC, BMP 12/06/16 06:00 12/06/16 06:00 INR, PTT INR 1.21 (0.82-1.09) H D 12/06/16 06:00 Problem List - Problems (1) Epilepsy Code(s): G40.909 - EPILEPSY, UNSP, NOT INTRACTABLE, WITHOUT STATUS EPILEPTICUS (2) Acute respiratory failure Code(s): J96.00 - ACUTE RESPIRATORY FAILURE, UNSP W HYPOXIA OR HYPERCAPNIA (3) CHF (congestive heart failure) Code(s): I50.9 - HEART FAILURE, UNSPECIFIED Qualifiers: Qualified Code(s): I50.43 - Acute on chronic combined systolic ( congestive) and diastolic (congestive) heart failure (4) CKD (chronic kidney disease) Code(s): N18.9 - CHRONIC KIDNEY DISEASE, UNSPECIFIED (5) COPD (chronic obstructive pulmonary disease) Code(s): J44.9 - CHRONIC OBSTRUCTIVE PULMONARY DISEASE, UNSPECIFIED (6) CVA (cerebral infarction) Code(s): I63.9 - CEREBRAL INFARCTION, UNSPECIFIED Qualifiers: Qualified Code(s): I63.9 - Cerebral infarction, unspecified Assessment/Plan Current Medications Generic Name Dose Route Start Last Admin Trade Name Freq PRN Reason Stop Dose Admin Acetaminophen 650 mg 11/30/16 15:36 12/03/16 08:20 Tylenol - PO 650 mg Q6H PRN Administration PAIN Albuterol/Ipratropium 1 amp 12/06/16 12:00 12/06/16 18:00 Duoneb - NEB 1 amp QIDR [facility] Administration Aspirin 81 mg 12/01/16 10:00 12/06/16 09:51 Ecotrin - PO 81 mg DAILY [facility] Administration Atorvastatin Calcium 10 mg 11/30/16 22:00 12/05/16 22:25 Lipitor - PO 10 mg HS [facility] Administration Carvedilol 12.5 mg 11/30/16 22:00 12/06/16 09:51 Coreg - PO 12.5 mg BID [facility] Administration Clopidogrel Bisulfate 75 mg 12/01/16 10:00 12/06/16 09:51 Plavix - PO 75 mg DAILY [facility] Administration Docusate Sodium 100 mg 12/01/16 10:00 12/06/16 09:51 Colace - PO 100 mg DAILY [facility] Administration Donepezil HCl 5 mg 12/01/16 22:00 12/05/16 22:25 Aricept - PO 5 mg HS [facility] Administration Ferrous Sulfate 325 mg 11/30/16 22:00 12/06/16 09:51 Feosol - PO 325 mg BID [facility] Administration Finasteride 5 mg 12/01/16 10:00 12/06/16 09:52 Proscar - PO 5 mg DAILY [facility] Administration Furosemide 60 mg 12/06/16 06:00 12/06/16 14:00 Lasix Injection - IVPUSH 60 mg BID@0600,1400 [facility] Administration Gabapentin 300 mg 11/30/16 22:00 12/06/16 09:51 Neurontin - PO 300 mg BID [facility] Administration Hydrocortisone 1 applic 12/01/16 10:00 12/06/16 09:55 Anusol 2.5% Hc Cream - TP 1 applic BID [facility] Administration Insulin Aspart 1 vial 12/01/16 16:30 12/06/16 16:56 Novolog Vial Sliding Scale - SQ 4 units ACHS [facility] Administration Protocol Isosorbide Mononitrate 30 mg 12/01/16 10:00 12/06/16 09:52 Imdur - PO 30 mg DAILY [facility] Administration Levetiracetam 1,000 mg/ 1,250 mg 11/30/16 22:00 12/06/16 09:52 Levetiracetam 250 mg PO 1,250 mg BID [facility] Administration Lisinopril 10 mg 12/01/16 10:00 12/06/16 09:51 Prinivil PO 10 mg DAILY [facility] Administration Mirtazapine 15 mg 11/30/16 22:00 12/05/16 22:25 Remeron - PO 15 mg HS [facility] Administration Nifedipine 60 mg 12/01/16 10:00 12/06/16 09:52 Procardia Xl - PO 60 mg DAILY [facility] Administration Pantoprazole Sodium 40 mg 12/01/16 10:00 12/06/16 09:51 Protonix - PO 40 mg DAILY [facility] Administration Potassium Chloride 10 meq 12/01/16 10:00 12/06/16 09:50 K-Dur - PO 10 meq DAILY [facility] Administration Spironolactone 25 mg 12/01/16 10:00 12/06/16 09:50 Aldactone - PO 25 mg DAILY [facility] Administration Tamsulosin HCl 0.4 mg 12/01/16 08:30 12/06/16 09:50 Flomax - PO 0.4 mg DAILY@0830 [facility] Administration Impression 1. CKD 2. epilepsy 3. hx CVA 4. DM 5. resp failure requiring bipap 6. hyperlipidemia 7. hx anemia 8. hx a-fib 9. hypokalemia 10. CAD 11. acute CHF Plan - continue with diuretics - would like to observe pt on oral diuretics before discharge - urology eval for retention - repeat labs in am - case discussed with pt and his - cont with bipap as needed - monitor bicarb while on diuretics - will follow Dr Jc
[2016-12-06] MEDS: ATORVASTATIN CA 10 MG TABLET (FP) PO SCH (21:52)
[2016-12-06] MEDS: MIRTAZAPINE 15 MG TABLET (FP) PO SCH (21:52)
[2016-12-06] MEDS: DONEPEZIL HCL 5 MG TABLET (FP) PO SCH (21:53)
[2016-12-07] MEDS: ALBUTEROL SO4 2.5/IPRATROPIUM 0.5 INH SOL 3 ML VIAL.NEB. NEB SCH ×3 (06:28→17:12)
[2016-12-07] MEDS: FUROSEMIDE 40 MG/4 ML INJECTABLE VIAL IVPUSH SCH (06:40)
[2016-12-07] MEDS: INSULIN SLIDING SCALE (NOVOLOG) 1 VIAL SQ SCH ×4 (06:40→21:17)
[2016-12-07 08:06] LABS: CALCIUM 7.6 mg/dL (8.5-10.1); COCKROFT - GAULT 38.3; CREATININE 1.9 mg/dL (0.7-1.3)
[2016-12-07] MEDS ORDERED: levETIRAcetam 250 MG TABLET (FP) PO ONE ×2 (08:50→20:50)
[2016-12-07] MEDS ORDERED: levETIRAcetam 500 MG TABLET (FP) PO ONE ×2 (08:50→20:50)
[2016-12-07] MEDS: HYDROCORTISONE 2.5% TOPICAL CREAM 30 GM TUBE TP SCH ×2 (09:21→21:16)
[2016-12-07] MEDS: TAMSULOSIN HCL 0.4 MG CAP.ER.24H (FP) PO SCH (09:22)
[2016-12-07] MEDS: ISOSORBIDE MONONITRATE 30 MG TAB.SR.24H (FP) PO SCH (09:22)
[2016-12-07] MEDS: DOCUSATE SODIUM 100 MG CAPSULE (FP) PO SCH (09:22)
[2016-12-07] MEDS: FERROUS SO4 325 MG TABLET (FP) PO SCH ×2 (09:22→21:15)
[2016-12-07] MEDS: CLOPIDOGREL BISULFATE 75 MG TABLET (FP) PO SCH (09:22)
[2016-12-07] MEDS: GABAPENTIN 300 MG CAPSULE (FP) PO SCH ×2 (09:22→21:15)
[2016-12-07] MEDS: CARVEDILOL 12.5 MG TABLET (FP) PO SCH ×2 (09:22→21:15)
[2016-12-07] MEDS: POTASSIUM CHLORIDE TABS 10 MEQ TABLET.ER (FP) PO SCH (09:22)
[2016-12-07] MEDS: PANTOPRAZOLE 40 MG TABLET (FP) PO SCH (09:22)
[2016-12-07] MEDS: LISINOPRIL 10 MG TABLET (FP) PO SCH (09:22)
[2016-12-07] MEDS: ASPIRIN COATED 81 MG TABLET.EC PO SCH (09:22)
[2016-12-07] MEDS: NIFEdipine E.R 60 MG TABLET (UD) PO SCH (09:23)
[2016-12-07] MEDS: LEVETIRACETAM PO SCH ×2 (09:23→21:15)
[2016-12-07] MEDS: SPIRONOLACTONE 25 MG TABLET (FP) PO SCH (09:23)
[2016-12-07] MEDS: FINASTERIDE 5 MG TABLET (FP) PO SCH (09:23)
--- NOTE | 2016-12-07 11:48 | PN ---
Progress Note, Physician History of Present Illness: The patient is a 75 year old male [place], with a significant past medical history of anemia, MS(1992), CHF, CKD, CVA(1997-right sided weakness), diabetes mellitus , hypertension, hyperlipidemia, dementia, GERD, and epilepsy who presents to the emergency department complaining of shortness of breath that began earlier today. patient recently discharged from hospital for simillar CHF exacorbation. - Current Medication List Current Medications: Active Medications Acetaminophen (Tylenol -) 650 mg PO Q6H PRN PRN Reason: PAIN Last Admin: 12/03/16 08:20 Dose: 650 mg Albuterol/Ipratropium (Duoneb -) 1 amp NEB QIDR [facility] Last Admin: 12/07/16 06:28 Dose: 1 amp Aspirin (Ecotrin -) 81 mg PO DAILY [facility] Last Admin: 12/07/16 09:22 Dose: 81 mg Atorvastatin Calcium (Lipitor -) 10 mg PO HS [facility] Last Admin: 12/06/16 21:52 Dose: 10 mg Carvedilol (Coreg -) 12.5 mg PO BID [facility] Last Admin: 12/07/16 09:22 Dose: 12.5 mg Clopidogrel Bisulfate (Plavix -) 75 mg PO DAILY [facility] Last Admin: 12/07/16 09:22 Dose: 75 mg Docusate Sodium (Colace -) 100 mg PO DAILY [facility] Last Admin: 12/07/16 09:22 Dose: 100 mg Donepezil HCl (Aricept -) 5 mg PO HS [facility] Last Admin: 12/06/16 21:53 Dose: 5 mg Ferrous Sulfate (Feosol -) 325 mg PO BID [facility] Last Admin: 12/07/16 09:22 Dose: 325 mg Finasteride (Proscar -) 5 mg PO DAILY [facility] Last Admin: 12/07/16 09:23 Dose: 5 mg Furosemide (Lasix Injection -) 60 mg IVPUSH BID@0600,1400 [facility] Last Admin: 12/07/16 06:40 Dose: 60 mg Gabapentin (Neurontin -) 300 mg PO BID [facility] Last Admin: 12/07/16 09:22 Dose: 300 mg Hydrocortisone (Anusol 2.5% Hc Cream -) 1 applic TP BID [facility] Last Admin: 12/07/16 09:21 Dose: 1 applic Insulin Aspart (Novolog Vial Sliding Scale -) 1 vial SQ ACHS [facility] PRN Reason: Protocol Last Admin: 12/07/16 06:40 Dose: 6 units Isosorbide Mononitrate (Imdur -) 30 mg PO DAILY [facility] Last Admin: 12/07/16 09:22 Dose: 30 mg Levetiracetam 1,000 mg/ (Levetiracetam 250 mg) 1,250 mg PO BID [facility] Last Admin: 12/07/16 09:23 Dose: 1,250 mg Lisinopril (Prinivil) 10 mg PO DAILY [facility] Last Admin: 12/07/16 09:22 Dose: 10 mg Mirtazapine (Remeron -) 15 mg PO HS [facility] Last Admin: 12/06/16 21:52 Dose: 15 mg Nifedipine (Procardia Xl -) 60 mg PO DAILY [facility] Last Admin: 12/07/16 09:23 Dose: 60 mg Pantoprazole Sodium (Protonix -) 40 mg PO DAILY [facility] Last Admin: 12/07/16 09:22 Dose: 40 mg Potassium Chloride (K-Dur -) 10 meq PO DAILY [facility] Last Admin: 12/07/16 09:22 Dose: 10 meq Spironolactone (Aldactone -) 25 mg PO DAILY [facility] Last Admin: 12/07/16 09:23 Dose: 25 mg Tamsulosin HCl (Flomax -) 0.4 mg PO DAILY@0830 [facility] Last Admin: 12/07/16 09:22 Dose: 0.4 mg - Objective Vital Signs: Vital Signs Temperature 97.8 F 12/07/16 07:52 Pulse Rate 62 12/07/16 07:52 Respiratory Rate 20 12/07/16 07:54 Blood Pressure 147/69 12/07/16 07:52 O2 Sat by Pulse Oximetry (%) 100 12/07/16 06:00 Eyes: Yes: WNL, Conjunctiva Clear, EOM Intact HENT: Yes: WNL, Atraumatic, Normocephalic Neck: Yes: WNL, Supple, Trachea Midline Cardiovascular: Yes: WNL, Regular Rate and Rhythm Respiratory: Yes: WNL, Regular, CTA Bilaterally Gastrointestinal: Yes: WNL, Normal Bowel Sounds Genitourinary: Yes: WNL Musculoskeletal: Yes: WNL Extremities: Yes: WNL Edema: No Integumentary: Yes: WNL Neurological: Yes: WNL, Alert, Oriented ...Motor Strength: WNL Psychiatric: Yes: WNL Labs: CBC, BMP 12/06/16 06:00 12/07/16 05:35 INR, PTT INR 1.21 (0.82-1.09) H D 12/06/16 06:00 Assessment/Plan 1) Abdominal pain Code(s): R10.9 - UNSPECIFIED ABDOMINAL PAIN Qualifiers: Qualified Code(s): R10.84 - Generalized abdominal pain (2) Atypical chest pain Code(s): R07.89 - OTHER CHEST PAIN (3) Chronic diastolic CHF (congestive heart failure) Code(s): I50.32 - CHRONIC DIASTOLIC (CONGESTIVE) HEART FAILURE (4) Chronic systolic CHF (congestive heart failure) Assessment/Plan: Remains on IV furosemide; on aldactone. F/u BUN/Cr, electrolytes. Consider stopping donepezil (propensity to result in bradycardia, conduction block). MUGA for LVEF when stable. Plan for pt to be seen by heart failure group ([facility]). Code(s): I50.22 - CHRONIC SYSTOLIC (CONGESTIVE) HEART FAILURE (5) MRSA (methicillin resistant staph aureus) culture positive Code(s): Z22.322 - CARRIER OR SUSPECTED CARRIER OF METHICILLIN RESIS STAPH (6) Mitral regurgitation Code(s): I34.0 - NONRHEUMATIC MITRAL (VALVE) INSUFFICIENCY (7) Pacemaker Assessment/Plan: atrial fibrillation:On carvedilol for HR control On ASA and clopidogrel (hx cardiac stents); ?unable to use anticoagulant due to GI bleed. Code(s): Z95.0 - PRESENCE OF CARDIAC PACEMAKER (8) Pulmonary hypertension Assessment/Plan: On BiPAP. F/u with fixed income director. Code(s): I27.2 - OTHER SECONDARY PULMONARY HYPERTENSION (9) Stented coronary artery Assessment/Plan: On ASA and clopidogrel. Aggressive management of lipids (statin; diet; exercise). Code(s): Z95.5 - PRESENCE OF CORONARY ANGIOPLASTY IMPLANT AND GRAFT (10) Acute on chronic renal insufficiency Assessment/Plan: f/u with teletype telegrapher. Code(s): N28.9 - DISORDER OF KIDNEY AND URETER, UNSPECIFIED N18.9 - CHRONIC KIDNEY DISEASE, UNSPECIFIED
--- NOTE | 2016-12-07 13:07 | PN ---
Progress Note, Physician History of Present Illness: Pt seen and examined at bedside. He is awake and out of bed to chair. - Current Medication List Current Medications: Active Medications Acetaminophen (Tylenol -) 650 mg PO Q6H PRN PRN Reason: PAIN Last Admin: 12/03/16 08:20 Dose: 650 mg Albuterol/Ipratropium (Duoneb -) 1 amp NEB QIDR [facility] Last Admin: 12/07/16 06:28 Dose: 1 amp Aspirin (Ecotrin -) 81 mg PO DAILY [facility] Last Admin: 12/07/16 09:22 Dose: 81 mg Atorvastatin Calcium (Lipitor -) 10 mg PO HS [facility] Last Admin: 12/06/16 21:52 Dose: 10 mg Carvedilol (Coreg -) 12.5 mg PO BID [facility] Last Admin: 12/07/16 09:22 Dose: 12.5 mg Clopidogrel Bisulfate (Plavix -) 75 mg PO DAILY [facility] Last Admin: 12/07/16 09:22 Dose: 75 mg Docusate Sodium (Colace -) 100 mg PO DAILY [facility] Last Admin: 12/07/16 09:22 Dose: 100 mg Donepezil HCl (Aricept -) 5 mg PO HS [facility] Last Admin: 12/06/16 21:53 Dose: 5 mg Ferrous Sulfate (Feosol -) 325 mg PO BID [facility] Last Admin: 12/07/16 09:22 Dose: 325 mg Finasteride (Proscar -) 5 mg PO DAILY [facility] Last Admin: 12/07/16 09:23 Dose: 5 mg Furosemide (Lasix Injection -) 60 mg IVPUSH BID@0600,1400 [facility] Last Admin: 12/07/16 06:40 Dose: 60 mg Gabapentin (Neurontin -) 300 mg PO BID [facility] Last Admin: 12/07/16 09:22 Dose: 300 mg Hydrocortisone (Anusol 2.5% Hc Cream -) 1 applic TP BID [facility] Last Admin: 12/07/16 09:21 Dose: 1 applic Insulin Aspart (Novolog Vial Sliding Scale -) 1 vial SQ ACHS [facility] PRN Reason: Protocol Last Admin: 12/07/16 12:03 Dose: 6 units Isosorbide Mononitrate (Imdur -) 30 mg PO DAILY [facility] Last Admin: 12/07/16 09:22 Dose: 30 mg Levetiracetam 1,000 mg/ (Levetiracetam 250 mg) 1,250 mg PO BID [facility] Last Admin: 12/07/16 09:23 Dose: 1,250 mg Lisinopril (Prinivil) 10 mg PO DAILY [facility] Last Admin: 12/07/16 09:22 Dose: 10 mg Mirtazapine (Remeron -) 15 mg PO HS [facility] Last Admin: 12/06/16 21:52 Dose: 15 mg Nifedipine (Procardia Xl -) 60 mg PO DAILY [facility] Last Admin: 12/07/16 09:23 Dose: 60 mg Pantoprazole Sodium (Protonix -) 40 mg PO DAILY [facility] Last Admin: 12/07/16 09:22 Dose: 40 mg Potassium Chloride (K-Dur -) 10 meq PO DAILY [facility] Last Admin: 12/07/16 09:22 Dose: 10 meq Spironolactone (Aldactone -) 25 mg PO DAILY [facility] Last Admin: 12/07/16 09:23 Dose: 25 mg Tamsulosin HCl (Flomax -) 0.4 mg PO DAILY@0830 [facility] Last Admin: 12/07/16 09:22 Dose: 0.4 mg - Objective Vital Signs: Vital Signs Temperature 97.8 F 12/07/16 07:52 Pulse Rate 62 12/07/16 07:52 Respiratory Rate 20 12/07/16 07:54 Blood Pressure 147/69 12/07/16 07:52 O2 Sat by Pulse Oximetry (%) 100 12/07/16 06:00 Constitutional: Yes: Calm Neck: Yes: Supple Cardiovascular: Yes: S1, S2 Respiratory: Yes: CTA Bilaterally Gastrointestinal: Yes: Soft Genitourinary: Yes: Metcalf Present Musculoskeletal: Yes: Muscle Weakness Edema: No Neurological: Yes: Oriented Labs: CBC, BMP 12/06/16 06:00 12/07/16 05:35 INR, PTT INR 1.21 (0.82-1.09) H D 12/06/16 06:00 Problem List - Problems (1) Epilepsy Code(s): G40.909 - EPILEPSY, UNSP, NOT INTRACTABLE, WITHOUT STATUS EPILEPTICUS (2) Acute respiratory failure Code(s): J96.00 - ACUTE RESPIRATORY FAILURE, UNSP W HYPOXIA OR HYPERCAPNIA (3) CHF (congestive heart failure) Code(s): I50.9 - HEART FAILURE, UNSPECIFIED Qualifiers: Qualified Code(s): I50.43 - Acute on chronic combined systolic ( congestive) and diastolic (congestive) heart failure (4) CKD (chronic kidney disease) Code(s): N18.9 - CHRONIC KIDNEY DISEASE, UNSPECIFIED (5) COPD (chronic obstructive pulmonary disease) Code(s): J44.9 - CHRONIC OBSTRUCTIVE PULMONARY DISEASE, UNSPECIFIED (6) CVA (cerebral infarction) Code(s): I63.9 - CEREBRAL INFARCTION, UNSPECIFIED Qualifiers: Qualified Code(s): I63.9 - Cerebral infarction, unspecified Assessment/Plan Current Medications Generic Name Dose Route Start Last Admin Trade Name Freq PRN Reason Stop Dose Admin Acetaminophen 650 mg 11/30/16 15:36 12/03/16 08:20 Tylenol - PO 650 mg Q6H PRN Administration PAIN Albuterol/Ipratropium 1 amp 12/06/16 12:00 12/07/16 06:28 Duoneb - NEB 1 amp QIDR [facility] Administration Aspirin 81 mg 12/01/16 10:00 12/07/16 09:22 Ecotrin - PO 81 mg DAILY [facility] Administration Atorvastatin Calcium 10 mg 11/30/16 22:00 12/06/16 21:52 Lipitor - PO 10 mg HS [facility] Administration Carvedilol 12.5 mg 11/30/16 22:00 12/07/16 09:22 Coreg - PO 12.5 mg BID [facility] Administration Clopidogrel Bisulfate 75 mg 12/01/16 10:00 12/07/16 09:22 Plavix - PO 75 mg DAILY [facility] Administration Docusate Sodium 100 mg 12/01/16 10:00 12/07/16 09:22 Colace - PO 100 mg DAILY [facility] Administration Donepezil HCl 5 mg 12/01/16 22:00 12/06/16 21:53 Aricept - PO 5 mg HS [facility] Administration Ferrous Sulfate 325 mg 11/30/16 22:00 12/07/16 09:22 Feosol - PO 325 mg BID [facility] Administration Finasteride 5 mg 12/01/16 10:00 12/07/16 09:23 Proscar - PO 5 mg DAILY [facility] Administration Furosemide 60 mg 12/06/16 06:00 12/07/16 06:40 Lasix Injection - IVPUSH 60 mg BID@0600,1400 [facility] Administration Gabapentin 300 mg 11/30/16 22:00 12/07/16 09:22 Neurontin - PO 300 mg BID [facility] Administration Hydrocortisone 1 applic 12/01/16 10:00 12/07/16 09:21 Anusol 2.5% Hc Cream - TP 1 applic BID [facility] Administration Insulin Aspart 1 vial 12/01/16 16:30 12/07/16 12:03 Novolog Vial Sliding Scale - SQ 6 units ACHS [facility] Administration Protocol Isosorbide Mononitrate 30 mg 12/01/16 10:00 12/07/16 09:22 Imdur - PO 30 mg DAILY [facility] Administration Levetiracetam 1,000 mg/ 1,250 mg 11/30/16 22:00 12/07/16 09:23 Levetiracetam 250 mg PO 1,250 mg BID [facility] Administration Lisinopril 10 mg 12/01/16 10:00 12/07/16 09:22 Prinivil PO 10 mg DAILY [facility] Administration Mirtazapine 15 mg 11/30/16 22:00 12/06/16 21:52 Remeron - PO 15 mg HS [facility] Administration Nifedipine 60 mg 12/01/16 10:00 12/07/16 09:23 Procardia Xl - PO 60 mg DAILY [facility] Administration Pantoprazole Sodium 40 mg 12/01/16 10:00 12/07/16 09:22 Protonix - PO 40 mg DAILY [facility] Administration Potassium Chloride 10 meq 12/01/16 10:00 12/07/16 09:22 K-Dur - PO 10 meq DAILY [facility] Administration Spironolactone 25 mg 12/01/16 10:00 12/07/16 09:23 Aldactone - PO 25 mg DAILY [facility] Administration Tamsulosin HCl 0.4 mg 12/01/16 08:30 12/07/16 09:22 Flomax - PO 0.4 mg DAILY@0830 [facility] Administration Impression 1. CKD 2. epilepsy 3. hx CVA 4. DM 5. resp failure requiring bipap 6. hyperlipidemia 7. hx anemia 8. hx a-fib 9. hypokalemia 10. CAD 11. acute CHF Plan - will change diuretics to 80 mg po q 12 hrs - repeat cxr - repeat bmp in am - would like to observe pt on oral diuretics before discharge - urology eval for retention - case discussed with pt - cont with bipap as needed - monitor bicarb while on diuretics - will follow Dr Jc
[2016-12-07] MEDS: FUROSEMIDE 40 MG TABLET (FP) PO SCH (14:02)
[2016-12-07] MEDS: MIRTAZAPINE 15 MG TABLET (FP) PO SCH (21:15)
[2016-12-07] MEDS: DONEPEZIL HCL 5 MG TABLET (FP) PO SCH (21:15)
[2016-12-07] MEDS: ATORVASTATIN CA 10 MG TABLET (FP) PO SCH (21:15)
--- NOTE | 2016-12-07 22:07 | PN ---
Progress Note, Physician Chief Complaint: ASLEEP BEDRIDDEN ON 02 CONSTANTLY MULTIPLE ADMISSIONS FOR CHF AND COPD - Current Medication List Current Medications: Active Medications Acetaminophen (Tylenol -) 650 mg PO Q6H PRN PRN Reason: PAIN Last Admin: 12/03/16 08:20 Dose: 650 mg Albuterol/Ipratropium (Duoneb -) 1 amp NEB QIDR [facility] Last Admin: 12/07/16 17:12 Dose: 1 amp Aspirin (Ecotrin -) 81 mg PO DAILY [facility] Last Admin: 12/07/16 09:22 Dose: 81 mg Atorvastatin Calcium (Lipitor -) 10 mg PO HS [facility] Last Admin: 12/07/16 21:15 Dose: 10 mg Carvedilol (Coreg -) 12.5 mg PO BID [facility] Last Admin: 12/07/16 21:15 Dose: 12.5 mg Clopidogrel Bisulfate (Plavix -) 75 mg PO DAILY [facility] Last Admin: 12/07/16 09:22 Dose: 75 mg Docusate Sodium (Colace -) 100 mg PO DAILY [facility] Last Admin: 12/07/16 09:22 Dose: 100 mg Ferrous Sulfate (Feosol -) 325 mg PO BID [facility] Last Admin: 12/07/16 21:15 Dose: 325 mg Finasteride (Proscar -) 5 mg PO DAILY [facility] Last Admin: 12/07/16 09:23 Dose: 5 mg Furosemide (Lasix -) 80 mg PO BID@0600,1400 [facility] Last Admin: 12/07/16 14:02 Dose: 80 mg Gabapentin (Neurontin -) 300 mg PO BID [facility] Last Admin: 12/07/16 21:15 Dose: 300 mg Hydrocortisone (Anusol 2.5% Hc Cream -) 1 applic TP BID [facility] Last Admin: 12/07/16 21:16 Dose: 1 applic Insulin Aspart (Novolog Vial Sliding Scale -) 1 vial SQ ACHS [facility] PRN Reason: Protocol Last Admin: 12/07/16 21:17 Dose: 6 units Isosorbide Mononitrate (Imdur -) 30 mg PO DAILY [facility] Last Admin: 12/07/16 09:22 Dose: 30 mg Levetiracetam 1,000 mg/ (Levetiracetam 250 mg) 1,250 mg PO BID [facility] Last Admin: 12/07/16 21:15 Dose: 1,250 mg Lisinopril (Prinivil) 10 mg PO DAILY [facility] Last Admin: 12/07/16 09:22 Dose: 10 mg Mirtazapine (Remeron -) 15 mg PO HS [facility] Last Admin: 12/07/16 21:15 Dose: 15 mg Nifedipine (Procardia Xl -) 60 mg PO DAILY [facility] Last Admin: 12/07/16 09:23 Dose: 60 mg Pantoprazole Sodium (Protonix -) 40 mg PO DAILY [facility] Last Admin: 12/07/16 09:22 Dose: 40 mg Potassium Chloride (K-Dur -) 10 meq PO DAILY [facility] Last Admin: 12/07/16 09:22 Dose: 10 meq Spironolactone (Aldactone -) 25 mg PO DAILY [facility] Last Admin: 12/07/16 09:23 Dose: 25 mg Tamsulosin HCl (Flomax -) 0.4 mg PO DAILY@0830 [facility] Last Admin: 12/07/16 09:22 Dose: 0.4 mg - Objective Vital Signs: Vital Signs Temperature 98.8 F 12/07/16 17:00 Pulse Rate 61 12/07/16 17:00 Respiratory Rate 18 12/07/16 17:00 Blood Pressure 133/71 12/07/16 17:00 O2 Sat by Pulse Oximetry (%) 100 12/07/16 17:12 Constitutional: Yes: Mild Distress Eyes: Yes: WNL HENT: Yes: WNL Neck: Yes: WNL Cardiovascular: Yes: Pulse Irregular Respiratory: Yes: Diminished, On Nasal O2, SOB, SOB on Exertion Gastrointestinal: Yes: WNL Genitourinary: Yes: Metcalf Present Musculoskeletal: Yes: Muscle Weakness Edema: Yes Edema: LLE: 1+, RLE: 1+ Peripheral Pulses WNL: Yes Integumentary: Yes: WNL Wound/Incision: Yes: Clean/Dry Neurological: Yes: Pre-Existing Deficit, Unsteady Gait, Weakness ...Motor Strength: LLE, RLE Psychiatric: Yes: Other Labs: CBC, BMP 12/06/16 06:00 12/07/16 05:35 INR, PTT INR 1.21 (0.82-1.09) H D 12/06/16 06:00 Assessment/Plan FAMILY AND PATIENT EXPECTATIONS ARE NOT PRACTICAL PATIENT HAS BEEN ADMITTED AND DISCHARGED HOME TO RETURN A FEW DAYS LATER. I SPOKE TO THE FAMILY MULTIPLE TIMES AND THEY AGREE THAT THEIR DAD SHOULD BE DNR/DNI ON PALLIATIVE/COMFORT CARE. WE ADMITTED HIM TO [facility] FOR CARDIO/PULM REHAB TO HAVE THE PATIENT RETURN TO THE ED FOR DYSPNEA AND READMITTED 2X SINCE THE [facility] ADMISSION 1 MONTH AGO. I SPOKE TO CARDIOLOGY WHO INITIALIZED [facility] FOR CHF OUTPATIENT CLINIC. THE PATIENT WILL NEVER SEE THEM AT [place] BECAUSE HE CALLS 911 WEEKLY FOR CHEST PAIN AND DYSPNEA AND GETS ADMITTED HERE AT [facility]. AT THIS POINT I FEEL PATIENT SHOULD BE DNR/DNI AND IN HOSPICE VS A INTERMEDIATE WITH REHAB AND COMFORT CARE. HIS CHF/COPD/CVA ARE NOT REVERSIBLE AND WILL WORSEN. POOR PROGNOSIS WITH POOR QUALITY OF LIFE.
[2016-12-08] MEDS: ALBUTEROL SO4 2.5/IPRATROPIUM 0.5 INH SOL 3 ML VIAL.NEB. NEB SCH ×5 (00:40→23:34)
[2016-12-08] MEDS: INSULIN SLIDING SCALE (NOVOLOG) 1 VIAL SQ SCH ×4 (06:33→21:21)
[2016-12-08] MEDS: FUROSEMIDE 40 MG TABLET (FP) PO SCH (06:33)
[2016-12-08] MEDS ORDERED: levETIRAcetam 500 MG TABLET (FP) PO ONE ×2 (09:33→21:07)
[2016-12-08] MEDS ORDERED: levETIRAcetam 250 MG TABLET (FP) PO ONE ×2 (09:33→21:06)
[2016-12-08] MEDS: ISOSORBIDE MONONITRATE 30 MG TAB.SR.24H (FP) PO SCH (09:40)
[2016-12-08] MEDS: LISINOPRIL 10 MG TABLET (FP) PO SCH (09:40)
[2016-12-08] MEDS: TAMSULOSIN HCL 0.4 MG CAP.ER.24H (FP) PO SCH (09:40)
[2016-12-08] MEDS: CARVEDILOL 12.5 MG TABLET (FP) PO SCH ×2 (09:40→21:22)
[2016-12-08] MEDS: POTASSIUM CHLORIDE TABS 10 MEQ TABLET.ER (FP) PO SCH (09:40)
[2016-12-08] MEDS: DOCUSATE SODIUM 100 MG CAPSULE (FP) PO SCH (09:40)
[2016-12-08] MEDS: LEVETIRACETAM PO SCH ×2 (09:40→21:22)
[2016-12-08] MEDS: GABAPENTIN 300 MG CAPSULE (FP) PO SCH ×2 (09:40→21:22)
[2016-12-08] MEDS: SPIRONOLACTONE 25 MG TABLET (FP) PO SCH (09:40)
[2016-12-08] MEDS: FERROUS SO4 325 MG TABLET (FP) PO SCH ×2 (09:40→21:22)
[2016-12-08] MEDS: FINASTERIDE 5 MG TABLET (FP) PO SCH (09:41)
[2016-12-08] MEDS: PANTOPRAZOLE 40 MG TABLET (FP) PO SCH (09:41)
[2016-12-08] MEDS: NIFEdipine E.R 60 MG TABLET (UD) PO SCH (09:41)
[2016-12-08] MEDS: ASPIRIN COATED 81 MG TABLET.EC PO SCH (09:41)
[2016-12-08] MEDS: HYDROCORTISONE 2.5% TOPICAL CREAM 30 GM TUBE TP SCH ×2 (09:48→21:31)
[2016-12-08] MEDS: CLOPIDOGREL BISULFATE 75 MG TABLET (FP) PO SCH (09:48)
[2016-12-08] MEDS ORDERED: LISINOPRIL 10 MG TABLET (FP) PO ONE (12:59)
--- NOTE | 2016-12-08 13:02 | PN ---
Progress Note, Physician Chief Complaint: Pt is much more alert; denies chest pain or dyspnea. Pt's daughter is at bedside. 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 Upon ER arrival. Patient was noted to have an oxygen saturation of 98% on room air, respiratory rate of 18, heart rate of 60 and blood pressure measurement 144/78. Patient was recently in this ED for CHF exacerbation. Patient was placed on a high Lasix dosage, which allowed him to urinate a lot. He was ultimately discharged. Patient's states that for the course of a 48 hour period, the patient has been noted to have decreased urinary output (approximately 100 ccs), despite compliance with Lasix. No fever , chills, dysuria, abdominal pain, nausea, vomiting, testicular pain/swelling. Allergies: No Known Drug Allergies. Past Surgical History: Cholecystectomy. Right hand orthopedic surgery Social History: Never smoked. No ETOH and recreational drug use. Primary Care Physician: Dr. Srini Nichols Wire Weaver Cloth: Dr. Aj López - Current Medication List Current Medications: Active Medications Acetaminophen (Tylenol -) 650 mg PO Q6H PRN PRN Reason: PAIN Last Admin: 12/03/16 08:20 Dose: 650 mg Albuterol/Ipratropium (Duoneb -) 1 amp NEB QIDR [facility] Last Admin: 12/08/16 11:45 Dose: 1 amp Aspirin (Ecotrin -) 81 mg PO DAILY [facility] Last Admin: 12/08/16 09:41 Dose: 81 mg Atorvastatin Calcium (Lipitor -) 10 mg PO HS [facility] Last Admin: 12/07/16 21:15 Dose: 10 mg Carvedilol (Coreg -) 12.5 mg PO BID [facility] Last Admin: 12/08/16 09:40 Dose: 12.5 mg Clopidogrel Bisulfate (Plavix -) 75 mg PO DAILY [facility] Last Admin: 12/08/16 09:48 Dose: 75 mg Docusate Sodium (Colace -) 100 mg PO DAILY [facility] Last Admin: 12/08/16 09:40 Dose: 100 mg Ferrous Sulfate (Feosol -) 325 mg PO BID [facility] Last Admin: 12/08/16 09:40 Dose: 325 mg Finasteride (Proscar -) 5 mg PO DAILY [facility] Last Admin: 12/08/16 09:41 Dose: 5 mg Furosemide (Lasix -) 80 mg PO BID@0600,1400 [facility] Last Admin: 12/08/16 06:33 Dose: 80 mg Gabapentin (Neurontin -) 300 mg PO BID [facility] Last Admin: 12/08/16 09:40 Dose: 300 mg Hydrocortisone (Anusol 2.5% Hc Cream -) 1 applic TP BID [facility] Last Admin: 12/08/16 09:48 Dose: 1 applic Insulin Aspart (Novolog Vial Sliding Scale -) 1 vial SQ ACHS [facility] PRN Reason: Protocol Last Admin: 12/08/16 11:52 Dose: 6 units Isosorbide Mononitrate (Imdur -) 30 mg PO DAILY [facility] Last Admin: 12/08/16 09:40 Dose: 30 mg Levetiracetam 1,000 mg/ (Levetiracetam 250 mg) 1,250 mg PO BID [facility] Last Admin: 12/08/16 09:40 Dose: 1,250 mg Lisinopril (Prinivil) 10 mg PO DAILY [facility] Last Admin: 12/08/16 09:40 Dose: 10 mg Mirtazapine (Remeron -) 15 mg PO HS [facility] Last Admin: 12/07/16 21:15 Dose: 15 mg Nifedipine (Procardia Xl -) 60 mg PO DAILY [facility] Last Admin: 12/08/16 09:41 Dose: 60 mg Pantoprazole Sodium (Protonix -) 40 mg PO DAILY [facility] Last Admin: 12/08/16 09:41 Dose: 40 mg Potassium Chloride (K-Dur -) 10 meq PO DAILY [facility] Last Admin: 12/08/16 09:40 Dose: 10 meq Spironolactone (Aldactone -) 25 mg PO DAILY [facility] Last Admin: 12/08/16 09:40 Dose: 25 mg Tamsulosin HCl (Flomax -) 0.4 mg PO DAILY@0830 [facility] Last Admin: 12/08/16 09:40 Dose: 0.4 mg - Objective Vital Signs: Vital Signs Temperature 98.2 F 12/08/16 10:00 Pulse Rate 59 L 12/08/16 11:58 Respiratory Rate 20 12/08/16 10:00 Blood Pressure 150/78 12/08/16 10:00 O2 Sat by Pulse Oximetry (%) 96 12/08/16 11:58 Constitutional: Yes: Calm Eyes: Yes: WNL HENT: Yes: WNL Neck: Yes: WNL Cardiovascular: Yes: Regular Rate and Rhythm Respiratory: Yes: Diminished Gastrointestinal: Yes: Soft ...Rectal Exam: Yes: Deferred Genitourinary: No: Anuria Breast(s): Yes: WNL Musculoskeletal: Yes: Muscle Weakness Extremities: Yes: Cool Edema: No Peripheral Pulses WNL: Yes Integumentary: Yes: WNL Neurological: Yes: Alert, Oriented, Weakness Psychiatric: Yes: Other Labs: CBC, BMP 12/06/16 06:00 12/07/16 05:35 INR, PTT INR 1.21 (0.82-1.09) H D 12/06/16 06:00 - ....Imaging Other: Image Reviewed (telemetry: ventricular paced rhythm) Problem List - Problems (1) Abdominal pain Code(s): R10.9 - UNSPECIFIED ABDOMINAL PAIN Qualifiers: Qualified Code(s): R10.84 - Generalized abdominal pain (2) Atypical chest pain Code(s): R07.89 - OTHER CHEST PAIN (3) Chronic diastolic CHF (congestive heart failure) Code(s): I50.32 - CHRONIC DIASTOLIC (CONGESTIVE) HEART FAILURE (4) Chronic systolic CHF (congestive heart failure) Assessment/Plan: Remains on IV furosemide; on aldactone. F/u BUN/Cr, electrolytes. Consider stopping donepezil (propensity to result in bradycardia, conduction block). MUGA : 43%. Discussed with DrS. Wagner and Hosea; furosemide changed to oral; lisinopril increased to 20 mg daily. Code(s): I50.22 - CHRONIC SYSTOLIC (CONGESTIVE) HEART FAILURE (5) MRSA (methicillin resistant staph aureus) culture positive Code(s): Z22.322 - CARRIER OR SUSPECTED CARRIER OF METHICILLIN RESIS STAPH (6) Mitral regurgitation Code(s): I34.0 - NONRHEUMATIC MITRAL (VALVE) INSUFFICIENCY (7) Pacemaker Code(s): Z95.0 - PRESENCE OF CARDIAC PACEMAKER (8) Pulmonary hypertension Code(s): I27.2 - OTHER SECONDARY PULMONARY HYPERTENSION (9) Stented coronary artery Code(s): Z95.5 - PRESENCE OF CORONARY ANGIOPLASTY IMPLANT AND GRAFT (10) Acute on chronic renal insufficiency Code(s): N28.9 - DISORDER OF KIDNEY AND URETER, UNSPECIFIED N18.9 - CHRONIC KIDNEY DISEASE, UNSPECIFIED
--- NOTE | 2016-12-08 13:17 | DS ---
Physical Examination Vital Signs: Vital Signs Temperature 98.2 F 12/08/16 10:00 Pulse Rate 59 L 12/08/16 11:58 Respiratory Rate 20 12/08/16 10:00 Blood Pressure 150/78 12/08/16 10:00 O2 Sat by Pulse Oximetry (%) 96 12/08/16 11:58 Constitutional: Yes: Mild Distress Eyes: Yes: WNL HENT: Yes: WNL Neck: Yes: WNL Cardiovascular: Yes: Pulse Irregular Respiratory: Yes: Diminished, On Nasal O2 Gastrointestinal: Yes: WNL Renal/: Yes: WNL Musculoskeletal: Yes: Muscle Weakness Extremities: Yes: WNL Edema: Yes Edema: LLE: Trace, RLE: Trace Peripheral Pulses WNL: Yes Integumentary: Yes: WNL Wound/Incision: Yes: Clean/Dry Neurological: Yes: WNL ...Motor Strength: WNL Psychiatric: Yes: WNL Labs: CBC, BMP 12/06/16 06:00 12/07/16 05:35 Discharge Summary Reason For Visit: DIASTOLIC CHF,PULMONARY EDEMA,BIPAP Current Active Problems Abdominal pain (Acute) Altered mental status (Acute) Atypical chest pain (Acute) Chronic diastolic CHF (congestive heart failure) (Acute) Chronic systolic CHF (congestive heart failure) (Acute) Delirium (Acute) Dementia (Acute) Difficulty breathing (Acute) Epilepsy (Acute) Hypokalemia (Acute) MRSA (methicillin resistant staph aureus) culture positive (Acute) Mitral regurgitation (Acute) Near syncope (Acute) Pacemaker (Acute) Pulmonary edema (Acute) Pulmonary hypertension (Acute) Stented coronary artery (Acute) Procedures: Principal: CXR Other Procedures: MUGA SCAN Hospital Course: ADMITTED FOR ACUTE ON CHRONIC SYSTOLIC HEART FAILURE, COPD, DYSPNEA, IV LASIX, CARDIAC WORKUP DONE. COMPLIANCE STRESSED. CARDIOPULMONARY REHAB Condition: Fair - Instructions Diet, Activity, Other Instructions: ADA/LOW SODIUM STRICT!!!! Disposition: VNS/HOME HEALTH CARE - Home Medications Comprehensive Discharge Medication List: Ambulatory Orders Acetaminophen [Tylenol] 650 mg PO Q6H PRN 11/18/16 Aspirin [Ecotrin] 81 mg PO DAILY 11/18/16 Atorvastatin Ca [Lipitor] 10 mg PO HS 11/18/16 Carvedilol [Coreg] 12.5 mg PO BID 11/18/16 Clopidogrel Bisulfate [Plavix -] 75 mg PO DAILY 11/18/16 Docusate Sodium [Colace -] 100 mg PO DAILY 11/18/16 Ergocalciferol [Drisdol -] 50,000 unit PO Q7D@1000 11/18/16 Ferrous Sulfate [Feosol] 325 mg PO BID 11/18/16 Finasteride 5 mg PO DAILY 11/18/16 Gabapentin [Neurontin] 300 mg PO BID 11/18/16 Insulin Degludec [Tresiba Flextouch U-100] 42 unit SQ DAILY 11/18/16 Isosorbide Mononitrate [Imdur -] 30 mg PO DAILY 11/18/16 Lidocaine [Aspercreme] 1 each TP DAILY 11/18/16 Mirtazapine [Remeron Soltab -] 15 mg PO HS 11/18/16 Nifedipine ER [Procardia XL -] 60 mg PO DAILY 11/18/16 Oxycodone HCl 10 mg PO Q6H PRN 11/18/16 Pantoprazole Sodium 40 mg PO DAILY 11/18/16 Potassium Chloride 10 meq PO DAILY 11/18/16 Ranitidine [Zantac -] 150 mg PO BID 11/18/16 Spironolactone [Aldactone] 25 mg PO DAILY 11/18/16 Tamsulosin HCl [Flomax] 0.4 mg PO DAILY 11/18/16 Tolnaftate 1% Cream [Tinactin 1% Cream -] 1 applic TP BID 11/18/16 Albuterol 2.5/Ipratropium 0.5 [Duoneb -] 1 amp NEB QIDR amp 11/24/16 Levetiracetam [Keppra -] 1,250 mg PO BID #60 tablet 11/24/16 Furosemide [Lasix -] 80 mg PO BID@0600,1400 #60 tablet 12/08/16 Hydrocortisone 2.5% Topical Cr [Anusol-Hc -] 1 applic TP BID #90 tube 12/08/16 Insulin Sliding Scale [Novolog Vial Sliding Scale -] 1 vial SQ ACHS units 12/08 Levetiracetam [Keppra -] 1,250 mg PO BID tablet 12/08/16 Lisinopril [Prinivil] 20 mg PO DAILY tablet 12/08/16
--- NOTE | 2016-12-08 14:15 | PN ---
Progress Note, Physician History of Present Illness: Pt seen and examined at bedside. He is awake and alert. - Current Medication List Current Medications: Active Medications Acetaminophen (Tylenol -) 650 mg PO Q6H PRN PRN Reason: PAIN Last Admin: 12/03/16 08:20 Dose: 650 mg Albuterol/Ipratropium (Duoneb -) 1 amp NEB QIDR [facility] Last Admin: 12/08/16 11:45 Dose: 1 amp Aspirin (Ecotrin -) 81 mg PO DAILY [facility] Last Admin: 12/08/16 09:41 Dose: 81 mg Atorvastatin Calcium (Lipitor -) 10 mg PO HS [facility] Last Admin: 12/07/16 21:15 Dose: 10 mg Carvedilol (Coreg -) 12.5 mg PO BID [facility] Last Admin: 12/08/16 09:40 Dose: 12.5 mg Clopidogrel Bisulfate (Plavix -) 75 mg PO DAILY [facility] Last Admin: 12/08/16 09:48 Dose: 75 mg Docusate Sodium (Colace -) 100 mg PO DAILY [facility] Last Admin: 12/08/16 09:40 Dose: 100 mg Ferrous Sulfate (Feosol -) 325 mg PO BID [facility] Last Admin: 12/08/16 09:40 Dose: 325 mg Finasteride (Proscar -) 5 mg PO DAILY [facility] Last Admin: 12/08/16 09:41 Dose: 5 mg Furosemide (Lasix Oral Solution -) 80 mg PO BID@0600,1400 [facility] Gabapentin (Neurontin -) 300 mg PO BID [facility] Last Admin: 12/08/16 09:40 Dose: 300 mg Hydrocortisone (Anusol 2.5% Hc Cream -) 1 applic TP BID [facility] Last Admin: 12/08/16 09:48 Dose: 1 applic Insulin Aspart (Novolog Vial Sliding Scale -) 1 vial SQ ACHS [facility] PRN Reason: Protocol Last Admin: 12/08/16 11:52 Dose: 6 units Isosorbide Mononitrate (Imdur -) 30 mg PO DAILY [facility] Last Admin: 12/08/16 09:40 Dose: 30 mg Levetiracetam 1,000 mg/ (Levetiracetam 250 mg) 1,250 mg PO BID [facility] Last Admin: 12/08/16 09:40 Dose: 1,250 mg Lisinopril (Prinivil) 20 mg PO DAILY [facility] Mirtazapine (Remeron -) 15 mg PO HS [facility] Last Admin: 12/07/16 21:15 Dose: 15 mg Nifedipine (Procardia Xl -) 60 mg PO DAILY [facility] Last Admin: 12/08/16 09:41 Dose: 60 mg Pantoprazole Sodium (Protonix -) 40 mg PO DAILY [facility] Last Admin: 12/08/16 09:41 Dose: 40 mg Potassium Chloride (K-Dur -) 10 meq PO DAILY [facility] Last Admin: 12/08/16 09:40 Dose: 10 meq Spironolactone (Aldactone -) 25 mg PO DAILY [facility] Last Admin: 12/08/16 09:40 Dose: 25 mg Tamsulosin HCl (Flomax -) 0.4 mg PO DAILY@0830 [facility] Last Admin: 12/08/16 09:40 Dose: 0.4 mg - Objective Vital Signs: Vital Signs Temperature 98.2 F 12/08/16 10:00 Pulse Rate 59 L 12/08/16 11:58 Respiratory Rate 20 12/08/16 10:00 Blood Pressure 150/78 12/08/16 10:00 O2 Sat by Pulse Oximetry (%) 96 12/08/16 11:58 Constitutional: Yes: Calm Eyes: Yes: Conjunctiva Clear HENT: Yes: Atraumatic Neck: Yes: Supple Cardiovascular: Yes: S1, S2 Respiratory: Yes: On Nasal O2 Gastrointestinal: Yes: Soft Genitourinary: Yes: Metcalf Present Musculoskeletal: Yes: Muscle Weakness Edema: No Neurological: Yes: Oriented, Pre-Existing Deficit Labs: CBC, BMP 12/06/16 06:00 12/07/16 05:35 INR, PTT INR 1.21 (0.82-1.09) H D 12/06/16 06:00 - ....Imaging Chest X-ray: Report Reviewed Problem List - Problems (1) Epilepsy Code(s): G40.909 - EPILEPSY, UNSP, NOT INTRACTABLE, WITHOUT STATUS EPILEPTICUS (2) Acute respiratory failure Code(s): J96.00 - ACUTE RESPIRATORY FAILURE, UNSP W HYPOXIA OR HYPERCAPNIA (3) CHF (congestive heart failure) Code(s): I50.9 - HEART FAILURE, UNSPECIFIED Qualifiers: Qualified Code(s): I50.43 - Acute on chronic combined systolic ( congestive) and diastolic (congestive) heart failure (4) CKD (chronic kidney disease) Code(s): N18.9 - CHRONIC KIDNEY DISEASE, UNSPECIFIED (5) COPD (chronic obstructive pulmonary disease) Code(s): J44.9 - CHRONIC OBSTRUCTIVE PULMONARY DISEASE, UNSPECIFIED (6) CVA (cerebral infarction) Code(s): I63.9 - CEREBRAL INFARCTION, UNSPECIFIED Qualifiers: Qualified Code(s): I63.9 - Cerebral infarction, unspecified Assessment/Plan Current Medications Generic Name Dose Route Start Last Admin Trade Name Freq PRN Reason Stop Dose Admin Acetaminophen 650 mg 11/30/16 15:36 12/03/16 08:20 Tylenol - PO 650 mg Q6H PRN Administration PAIN Albuterol/Ipratropium 1 amp 12/06/16 12:00 12/08/16 11:45 Duoneb - NEB 1 amp QIDR [facility] Administration Aspirin 81 mg 12/01/16 10:00 12/08/16 09:41 Ecotrin - PO 81 mg DAILY [facility] Administration Atorvastatin Calcium 10 mg 11/30/16 22:00 12/07/16 21:15 Lipitor - PO 10 mg HS [facility] Administration Carvedilol 12.5 mg 11/30/16 22:00 12/08/16 09:40 Coreg - PO 12.5 mg BID [facility] Administration Clopidogrel Bisulfate 75 mg 12/01/16 10:00 12/08/16 09:48 Plavix - PO 75 mg DAILY [facility] Administration Docusate Sodium 100 mg 12/01/16 10:00 12/08/16 09:40 Colace - PO 100 mg DAILY [facility] Administration Ferrous Sulfate 325 mg 11/30/16 22:00 12/08/16 09:40 Feosol - PO 325 mg BID [facility] Administration Finasteride 5 mg 12/01/16 10:00 12/08/16 09:41 Proscar - PO 5 mg DAILY [facility] Administration Furosemide 80 mg 12/08/16 14:00 Lasix Oral Solution - PO BID@0600,1400 [facility] Gabapentin 300 mg 11/30/16 22:00 12/08/16 09:40 Neurontin - PO 300 mg BID [facility] Administration Hydrocortisone 1 applic 12/01/16 10:00 12/08/16 09:48 Anusol 2.5% Hc Cream - TP 1 applic BID [facility] Administration Insulin Aspart 1 vial 12/01/16 16:30 12/08/16 11:52 Novolog Vial Sliding Scale - SQ 6 units ACHS [facility] Administration Protocol Isosorbide Mononitrate 30 mg 12/01/16 10:00 12/08/16 09:40 Imdur - PO 30 mg DAILY [facility] Administration Levetiracetam 1,000 mg/ 1,250 mg 11/30/16 22:00 12/08/16 09:40 Levetiracetam 250 mg PO 1,250 mg BID [facility] Administration Lisinopril 20 mg 12/09/16 10:00 Prinivil PO DAILY [facility] Mirtazapine 15 mg 11/30/16 22:00 12/07/16 21:15 Remeron - PO 15 mg HS [facility] Administration Nifedipine 60 mg 12/01/16 10:00 12/08/16 09:41 Procardia Xl - PO 60 mg DAILY [facility] Administration Pantoprazole Sodium 40 mg 12/01/16 10:00 12/08/16 09:41 Protonix - PO 40 mg DAILY [facility] Administration Potassium Chloride 10 meq 12/01/16 10:00 12/08/16 09:40 K-Dur - PO 10 meq DAILY [facility] Administration Spironolactone 25 mg 12/01/16 10:00 12/08/16 09:40 Aldactone - PO 25 mg DAILY [facility] Administration Tamsulosin HCl 0.4 mg 12/01/16 08:30 12/08/16 09:40 Flomax - PO 0.4 mg DAILY@0830 [facility] Administration Impression 1. CKD 2. epilepsy 3. hx CVA 4. DM 5. resp failure requiring bipap 6. hyperlipidemia 7. hx anemia 8. hx a-fib 9. hypokalemia 10. CAD 11. acute CHF Plan - cont po lasix - case discussed with cardio - cont to monitor renal function - urology eval for retention - cont with bipap as needed - will follow Dr Jc
[2016-12-08] MEDS: FUROSEMIDE 40 MG/5 ML UNIT-DOSE CUP PO SCH (15:39)
[2016-12-08] MEDS: ATORVASTATIN CA 10 MG TABLET (FP) PO SCH (21:22)
[2016-12-08] MEDS: MIRTAZAPINE 15 MG TABLET (FP) PO SCH (21:22)
[2016-12-09] MEDS: ALBUTEROL SO4 2.5/IPRATROPIUM 0.5 INH SOL 3 ML VIAL.NEB. NEB SCH ×4 (06:35→23:38)
--- NOTE | 2016-12-09 07:10 | PN ---
Progress Note (short form) - Note Progress Note: PALLIATIVE CARE NURSE FERNANDO APPRECIATED, MULTIPLE CO-MORBID DISEASES FOR MR TREVINO . I HAVE HAD MULTIPLE CONVERSATIONS WITH HIS FAMILY ABOUT GOALS OF CARE AND COMFORT MEASURES AT THIS POINT. PATIENT HAS SYSTOLIC HEART FAILURE, COPD WITH CHRONIC DYSPNEA ON OPTIMAL MEDICATIONS, PREVIOUS CVA, CHRONIC PAIN, NEUROPATHY BOTH FROM DIABETES AND RADICULOPATHY, BEDRIDDEN, BLIND, DEPRESSED, UNABLE TO HAVE CAPACITY ON DECISIONS THEREFORE DISCUSSED WITH HIS AND DAUGHTER, WITH A POOR QUALITY OF LIFE. AT THIS POINT I STRONGLY AGREE WITH HOME PALLIATIVE COMFORT CARE TO REDUCE AGONIZING ADMISSIONS AND NEEDLE STICKS, HOSPITAL CARE FOR THE BETTER OVERALL COMFORT OF THIS PATIENT, FAMILY HAS AGREED AND I THANK OUT PALLIATIVE TEAM FOR DISCUSSING THIS WITH THE PATIENT'S FAMILY. PLAN: DC HOME ON OXYGEN THERAPY PAIN CONTROL HOME HOSPICE PASTORAL CARE FOLLOW UP ALSO FAMILY SHOULD CONTACT THEIR [place]ORD FOR GUIDANCE.
[2016-12-09] MEDS: FUROSEMIDE 40 MG/5 ML UNIT-DOSE CUP PO SCH ×2 (07:12→13:45)
[2016-12-09] MEDS: INSULIN SLIDING SCALE (NOVOLOG) 1 VIAL SQ SCH ×4 (07:16→23:07)
[2016-12-09 08:17] LABS: CALCIUM 8.1 mg/dL (8.5-10.1); COCKROFT - GAULT 40.47; CREATININE 1.8 mg/dL (0.7-1.3)
[2016-12-09] MEDS ORDERED: levETIRAcetam 250 MG TABLET (FP) PO ONE ×2 (09:11→22:54)
[2016-12-09] MEDS ORDERED: levETIRAcetam 500 MG TABLET (FP) PO ONE ×2 (09:11→22:54)
[2016-12-09] MEDS: POTASSIUM CHLORIDE TABS 10 MEQ TABLET.ER (FP) PO SCH (09:45)
[2016-12-09] MEDS: TAMSULOSIN HCL 0.4 MG CAP.ER.24H (FP) PO SCH (09:45)
[2016-12-09] MEDS: LEVETIRACETAM PO SCH ×2 (09:45→23:05)
[2016-12-09] MEDS: CARVEDILOL 12.5 MG TABLET (FP) PO SCH ×2 (09:46→23:06)
[2016-12-09] MEDS: LISINOPRIL 20 MG TABLET (FP) PO SCH (09:46)
[2016-12-09] MEDS: FERROUS SO4 325 MG TABLET (FP) PO SCH ×2 (09:46→23:06)
[2016-12-09] MEDS: FINASTERIDE 5 MG TABLET (FP) PO SCH (09:46)
[2016-12-09] MEDS: ISOSORBIDE MONONITRATE 30 MG TAB.SR.24H (FP) PO SCH (09:46)
[2016-12-09] MEDS: SPIRONOLACTONE 25 MG TABLET (FP) PO SCH (09:46)
[2016-12-09] MEDS: CLOPIDOGREL BISULFATE 75 MG TABLET (FP) PO SCH (09:46)
[2016-12-09] MEDS: GABAPENTIN 300 MG CAPSULE (FP) PO SCH ×2 (09:46→23:05)
[2016-12-09] MEDS: HYDROCORTISONE 2.5% TOPICAL CREAM 30 GM TUBE TP SCH ×2 (09:46→23:06)
[2016-12-09] MEDS: DOCUSATE SODIUM 100 MG CAPSULE (FP) PO SCH (09:46)
[2016-12-09] MEDS: ASPIRIN COATED 81 MG TABLET.EC PO SCH (09:46)
[2016-12-09] MEDS: PANTOPRAZOLE 40 MG TABLET (FP) PO SCH (09:46)
[2016-12-09] MEDS: NIFEdipine E.R 60 MG TABLET (UD) PO SCH (09:47)
--- NOTE | 2016-12-09 11:43 | PN ---
Progress Note, Physician History of Present Illness: pulmonary alert,nad,-sob,-cp - Current Medication List Current Medications: Active Medications Acetaminophen (Tylenol -) 650 mg PO Q6H PRN PRN Reason: PAIN Last Admin: 12/03/16 08:20 Dose: 650 mg Albuterol/Ipratropium (Duoneb -) 1 amp NEB QIDR [facility] Last Admin: 12/09/16 06:35 Dose: 1 amp Aspirin (Ecotrin -) 81 mg PO DAILY [facility] Last Admin: 12/09/16 09:46 Dose: 81 mg Atorvastatin Calcium (Lipitor -) 10 mg PO HS [facility] Last Admin: 12/08/16 21:22 Dose: 10 mg Carvedilol (Coreg -) 12.5 mg PO BID [facility] Last Admin: 12/09/16 09:46 Dose: 12.5 mg Clopidogrel Bisulfate (Plavix -) 75 mg PO DAILY [facility] Last Admin: 12/09/16 09:46 Dose: 75 mg Docusate Sodium (Colace -) 100 mg PO DAILY [facility] Last Admin: 12/09/16 09:46 Dose: 100 mg Ferrous Sulfate (Feosol -) 325 mg PO BID [facility] Last Admin: 12/09/16 09:46 Dose: 325 mg Finasteride (Proscar -) 5 mg PO DAILY [facility] Last Admin: 12/09/16 09:46 Dose: 5 mg Furosemide (Lasix Oral Solution -) 80 mg PO BID@0600,1400 [facility] Last Admin: 12/09/16 07:12 Dose: 80 mg Gabapentin (Neurontin -) 300 mg PO BID [facility] Last Admin: 12/09/16 09:46 Dose: 300 mg Hydrocortisone (Anusol 2.5% Hc Cream -) 1 applic TP BID [facility] Last Admin: 12/09/16 09:46 Dose: 1 applic Insulin Aspart (Novolog Vial Sliding Scale -) 1 vial SQ ACHS [facility] PRN Reason: Protocol Last Admin: 12/09/16 11:26 Dose: 4 units Isosorbide Mononitrate (Imdur -) 30 mg PO DAILY [facility] Last Admin: 12/09/16 09:46 Dose: 30 mg Levetiracetam 1,000 mg/ (Levetiracetam 250 mg) 1,250 mg PO BID [facility] Last Admin: 12/09/16 09:45 Dose: 1,250 mg Lisinopril (Prinivil) 20 mg PO DAILY [facility] Last Admin: 12/09/16 09:46 Dose: 20 mg Mirtazapine (Remeron -) 15 mg PO HS [facility] Last Admin: 12/08/16 21:22 Dose: 15 mg Nifedipine (Procardia Xl -) 60 mg PO DAILY [facility] Last Admin: 12/09/16 09:47 Dose: 60 mg Pantoprazole Sodium (Protonix -) 40 mg PO DAILY [facility] Last Admin: 12/09/16 09:46 Dose: 40 mg Potassium Chloride (K-Dur -) 10 meq PO DAILY [facility] Last Admin: 12/09/16 09:45 Dose: 10 meq Spironolactone (Aldactone -) 25 mg PO DAILY [facility] Last Admin: 12/09/16 09:46 Dose: 25 mg Tamsulosin HCl (Flomax -) 0.4 mg PO DAILY@0830 [facility] Last Admin: 12/09/16 09:45 Dose: 0.4 mg - Objective Vital Signs: Vital Signs Temperature 97.9 F 12/09/16 08:10 Pulse Rate 60 12/09/16 08:10 Respiratory Rate 20 12/09/16 08:10 Blood Pressure 140/71 12/09/16 08:10 O2 Sat by Pulse Oximetry (%) 98 12/08/16 21:00 Constitutional: Yes: Well Nourished, Calm Eyes: Yes: WNL HENT: Yes: WNL Neck: Yes: WNL Cardiovascular: Yes: Regular Rate and Rhythm, S1, S2 Respiratory: Yes: Diminished Gastrointestinal: Yes: Normal Bowel Sounds, Soft Extremities: Yes: WNL Edema: No Labs: CBC, BMP 12/09/16 05:40 INR, PTT INR 1.21 (0.82-1.09) H D 12/06/16 06:00 Assessment/Plan Problem List - Problems (1) Acute on chronic systolic and diastolic heart failure, NYHA class 1 Code(s): I50.43 - ACUTE ON CHRONIC COMBINED SYSTOLIC AND DIASTOLIC HRT FAIL (2) Mitral regurgitation Code(s): I34.0 - NONRHEUMATIC MITRAL (VALVE) INSUFFICIENCY (3) Pulmonary hypertension Code(s): I27.2 - OTHER SECONDARY PULMONARY HYPERTENSION (4) Pleural effusion Code(s): J90 - PLEURAL EFFUSION, NOT ELSEWHERE CLASSIFIED (5) Altered mental status Code(s): R41.82 - ALTERED MENTAL STATUS, UNSPECIFIED Qualifiers: Altered mental status type: disorientation Qualified Code(s): R41.0 - Disorientation, unspecified (6) Acute on chronic respiratory failure with hypoxia and hypercapnia Code(s): J96.21 - ACUTE AND CHRONIC RESPIRATORY FAILURE WITH HYPOXIA J96.22 - ACUTE AND CHRONIC RESPIRATORY FAILURE WITH HYPERCAPNIA Assessment/Plan Acute on Chronic Systolic/Diastolic Heart Failure improving Acute on Chronic Hypoxic and Hypercapneic Respiratory Failure improving Pulmonary HTN Pleural Effusions from above Atrial Fibrillation Moderate Mitral Regurgitation CKD h/o CVA - lasix - monitor urine output, creatinine - daily weights, I/Os - O2 to keep Spo2 >90% - BiPAP prn - rate control DR TORRES
--- NOTE | 2016-12-09 13:28 | PN ---
Progress Note, Physician Chief Complaint: Pt alert; no chest pain or dyspnea. 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 Upon ER arrival. Patient was noted to have an oxygen saturation of 98% on room air, respiratory rate of 18, heart rate of 60 and blood pressure measurement 144/78. Patient was recently in this ED for CHF exacerbation. Patient was placed on a high Lasix dosage, which allowed him to urinate a lot. He was ultimately discharged. Patient's states that for the course of a 48 hour period, the patient has been noted to have decreased urinary output (approximately 100 ccs), despite compliance with Lasix. No fever , chills, dysuria, abdominal pain, nausea, vomiting, testicular pain/swelling. Allergies: No Known Drug Allergies. Past Surgical History: Cholecystectomy. Right hand orthopedic surgery Social History: Never smoked. No ETOH and recreational drug use. Primary Care Physician: Dr. Srini Nichols Security Lead: Dr. Aj López - Current Medication List Current Medications: Active Medications Acetaminophen (Tylenol -) 650 mg PO Q6H PRN PRN Reason: PAIN Last Admin: 12/03/16 08:20 Dose: 650 mg Albuterol/Ipratropium (Duoneb -) 1 amp NEB QIDR [facility] Last Admin: 12/09/16 11:35 Dose: 1 amp Aspirin (Ecotrin -) 81 mg PO DAILY [facility] Last Admin: 12/09/16 09:46 Dose: 81 mg Atorvastatin Calcium (Lipitor -) 10 mg PO HS [facility] Last Admin: 12/08/16 21:22 Dose: 10 mg Carvedilol (Coreg -) 12.5 mg PO BID [facility] Last Admin: 12/09/16 09:46 Dose: 12.5 mg Clopidogrel Bisulfate (Plavix -) 75 mg PO DAILY [facility] Last Admin: 12/09/16 09:46 Dose: 75 mg Docusate Sodium (Colace -) 100 mg PO DAILY [facility] Last Admin: 12/09/16 09:46 Dose: 100 mg Ferrous Sulfate (Feosol -) 325 mg PO BID [facility] Last Admin: 12/09/16 09:46 Dose: 325 mg Finasteride (Proscar -) 5 mg PO DAILY [facility] Last Admin: 12/09/16 09:46 Dose: 5 mg Furosemide (Lasix Oral Solution -) 80 mg PO BID@0600,1400 [facility] Last Admin: 12/09/16 07:12 Dose: 80 mg Gabapentin (Neurontin -) 300 mg PO BID [facility] Last Admin: 12/09/16 09:46 Dose: 300 mg Hydrocortisone (Anusol 2.5% Hc Cream -) 1 applic TP BID [facility] Last Admin: 12/09/16 09:46 Dose: 1 applic Insulin Aspart (Novolog Vial Sliding Scale -) 1 vial SQ ACHS [facility] PRN Reason: Protocol Last Admin: 12/09/16 11:26 Dose: 4 units Isosorbide Mononitrate (Imdur -) 30 mg PO DAILY [facility] Last Admin: 12/09/16 09:46 Dose: 30 mg Levetiracetam 1,000 mg/ (Levetiracetam 250 mg) 1,250 mg PO BID [facility] Last Admin: 12/09/16 09:45 Dose: 1,250 mg Lisinopril (Prinivil) 20 mg PO DAILY [facility] Last Admin: 12/09/16 09:46 Dose: 20 mg Mirtazapine (Remeron -) 15 mg PO HS [facility] Last Admin: 12/08/16 21:22 Dose: 15 mg Nifedipine (Procardia Xl -) 60 mg PO DAILY [facility] Last Admin: 12/09/16 09:47 Dose: 60 mg Pantoprazole Sodium (Protonix -) 40 mg PO DAILY [facility] Last Admin: 12/09/16 09:46 Dose: 40 mg Potassium Chloride (K-Dur -) 10 meq PO DAILY [facility] Last Admin: 12/09/16 09:45 Dose: 10 meq Spironolactone (Aldactone -) 25 mg PO DAILY [facility] Last Admin: 12/09/16 09:46 Dose: 25 mg Tamsulosin HCl (Flomax -) 0.4 mg PO DAILY@0830 [facility] Last Admin: 12/09/16 09:45 Dose: 0.4 mg - Objective Vital Signs: Vital Signs Temperature 97.9 F 12/09/16 08:10 Pulse Rate 60 12/09/16 08:10 Respiratory Rate 20 12/09/16 08:10 Blood Pressure 140/71 12/09/16 08:10 O2 Sat by Pulse Oximetry (%) 98 12/08/16 21:00 Constitutional: Yes: Anxious Eyes: Yes: WNL HENT: Yes: WNL Neck: Yes: WNL Cardiovascular: Yes: S1, S2 (split) Respiratory: Yes: Diminished Gastrointestinal: Yes: Soft ...Rectal Exam: Yes: Deferred Genitourinary: No: Anuria Musculoskeletal: Yes: Muscle Weakness Extremities: Yes: Cool Edema: No Peripheral Pulses WNL: No Peripheral Pulses: Left Doralis Pedis: 1+, Right Dorsalis Pedis: 1+ Neurological: Yes: Alert, Oriented, Weakness Labs: CBC, BMP 12/06/16 06:00 12/09/16 05:40 INR, PTT INR 1.21 (0.82-1.09) H D 12/06/16 06:00 Problem List - Problems (1) Abdominal pain Code(s): R10.9 - UNSPECIFIED ABDOMINAL PAIN Qualifiers: Qualified Code(s): R10.84 - Generalized abdominal pain (2) Atypical chest pain Code(s): R07.89 - OTHER CHEST PAIN (3) Chronic systolic CHF (congestive heart failure) Assessment/Plan: Remains on IV furosemide; on aldactone. F/u BUN/Cr, electrolytes. Consider stopping donepezil (propensity to result in bradycardia, conduction block). MUGA : 43%. Discussed with DrS. Wagner and Hosea; furosemide changed to oral; lisinopril increased to 20 mg daily. Code(s): I50.22 - CHRONIC SYSTOLIC (CONGESTIVE) HEART FAILURE (4) MRSA (methicillin resistant staph aureus) culture positive Code(s): Z22.322 - CARRIER OR SUSPECTED CARRIER OF METHICILLIN RESIS STAPH (5) Mitral regurgitation Code(s): I34.0 - NONRHEUMATIC MITRAL (VALVE) INSUFFICIENCY (6) Pacemaker Assessment/Plan: atrial fibrillation:On carvedilol for HR control On ASA and clopidogrel (hx cardiac stents); ?unable to use anticoagulant due to GI bleed. Code(s): Z95.0 - PRESENCE OF CARDIAC PACEMAKER (7) Pulmonary hypertension Assessment/Plan: On BiPAP. F/u with valve inserter. Code(s): I27.2 - OTHER SECONDARY PULMONARY HYPERTENSION (8) Stented coronary artery Assessment/Plan: On ASA and clopidogrel. Aggressive management of lipids (statin; diet; exercise). Code(s): Z95.5 - PRESENCE OF CORONARY ANGIOPLASTY IMPLANT AND GRAFT (9) Acute on chronic renal insufficiency Assessment/Plan: f/u with semiconductor processing technician. Code(s): N28.9 - DISORDER OF KIDNEY AND URETER, UNSPECIFIED N18.9 - CHRONIC KIDNEY DISEASE, UNSPECIFIED
[2016-12-09] MEDS ORDERED: oxyCODONE HCL 5 MG TABLET PO ONE (13:45)
--- NOTE | 2016-12-09 18:52 | PN ---
Progress Note, Physician History of Present Illness: Pt seen and examined at bedside. He is awake and alert. He denies shortness of breath and feels comfortable today. He is however still on oxygen. - Current Medication List Current Medications: Active Medications Acetaminophen (Tylenol -) 650 mg PO Q6H PRN PRN Reason: PAIN Last Admin: 12/03/16 08:20 Dose: 650 mg Albuterol/Ipratropium (Duoneb -) 1 amp NEB QIDR [facility] Last Admin: 12/09/16 17:36 Dose: 1 amp Aspirin (Ecotrin -) 81 mg PO DAILY [facility] Last Admin: 12/09/16 09:46 Dose: 81 mg Atorvastatin Calcium (Lipitor -) 10 mg PO HS [facility] Last Admin: 12/08/16 21:22 Dose: 10 mg Carvedilol (Coreg -) 12.5 mg PO BID [facility] Last Admin: 12/09/16 09:46 Dose: 12.5 mg Clopidogrel Bisulfate (Plavix -) 75 mg PO DAILY [facility] Last Admin: 12/09/16 09:46 Dose: 75 mg Docusate Sodium (Colace -) 100 mg PO DAILY [facility] Last Admin: 12/09/16 09:46 Dose: 100 mg Ferrous Sulfate (Feosol -) 325 mg PO BID [facility] Last Admin: 12/09/16 09:46 Dose: 325 mg Finasteride (Proscar -) 5 mg PO DAILY [facility] Last Admin: 12/09/16 09:46 Dose: 5 mg Furosemide (Lasix Oral Solution -) 80 mg PO BID@0600,1400 [facility] Last Admin: 12/09/16 13:45 Dose: 80 mg Gabapentin (Neurontin -) 300 mg PO BID [facility] Last Admin: 12/09/16 09:46 Dose: 300 mg Hydrocortisone (Anusol 2.5% Hc Cream -) 1 applic TP BID [facility] Last Admin: 12/09/16 09:46 Dose: 1 applic Insulin Aspart (Novolog Vial Sliding Scale -) 1 vial SQ ACHS [facility] PRN Reason: Protocol Last Admin: 12/09/16 16:42 Dose: Not Given Isosorbide Mononitrate (Imdur -) 30 mg PO DAILY [facility] Last Admin: 12/09/16 09:46 Dose: 30 mg Levetiracetam 1,000 mg/ (Levetiracetam 250 mg) 1,250 mg PO BID [facility] Last Admin: 12/09/16 09:45 Dose: 1,250 mg Lisinopril (Prinivil) 20 mg PO DAILY [facility] Last Admin: 12/09/16 09:46 Dose: 20 mg Mirtazapine (Remeron -) 15 mg PO HS [facility] Last Admin: 12/08/16 21:22 Dose: 15 mg Nifedipine (Procardia Xl -) 60 mg PO DAILY [facility] Last Admin: 12/09/16 09:47 Dose: 60 mg Pantoprazole Sodium (Protonix -) 40 mg PO DAILY [facility] Last Admin: 12/09/16 09:46 Dose: 40 mg Potassium Chloride (K-Dur -) 10 meq PO DAILY [facility] Last Admin: 12/09/16 09:45 Dose: 10 meq Spironolactone (Aldactone -) 25 mg PO DAILY [facility] Last Admin: 12/09/16 09:46 Dose: 25 mg Tamsulosin HCl (Flomax -) 0.4 mg PO DAILY@0830 [facility] Last Admin: 12/09/16 09:45 Dose: 0.4 mg - Objective Vital Signs: Vital Signs Temperature 97.9 F 12/09/16 08:10 Pulse Rate 60 12/09/16 08:10 Respiratory Rate 20 12/09/16 08:10 Blood Pressure 140/71 12/09/16 08:10 O2 Sat by Pulse Oximetry (%) 98 12/08/16 21:00 Constitutional: Yes: Calm Eyes: Yes: Conjunctiva Clear Cardiovascular: Yes: S1, S2 Respiratory: Yes: On Nasal O2 Gastrointestinal: Yes: Soft ...Rectal Exam: Yes: Hemorrhoids/External Genitourinary: Yes: Other (external catheter) Musculoskeletal: Yes: Muscle Weakness Edema: No Neurological: Yes: Oriented, Pre-Existing Deficit Psychiatric: Yes: Oriented Labs: CBC, BMP 12/06/16 06:00 12/09/16 05:40 INR, PTT INR 1.21 (0.82-1.09) H D 12/06/16 06:00 Problem List - Problems (1) Epilepsy Code(s): G40.909 - EPILEPSY, UNSP, NOT INTRACTABLE, WITHOUT STATUS EPILEPTICUS (2) Acute respiratory failure Code(s): J96.00 - ACUTE RESPIRATORY FAILURE, UNSP W HYPOXIA OR HYPERCAPNIA (3) CHF (congestive heart failure) Code(s): I50.9 - HEART FAILURE, UNSPECIFIED Qualifiers: Qualified Code(s): I50.43 - Acute on chronic combined systolic ( congestive) and diastolic (congestive) heart failure (4) CKD (chronic kidney disease) Code(s): N18.9 - CHRONIC KIDNEY DISEASE, UNSPECIFIED (5) COPD (chronic obstructive pulmonary disease) Code(s): J44.9 - CHRONIC OBSTRUCTIVE PULMONARY DISEASE, UNSPECIFIED (6) CVA (cerebral infarction) Code(s): I63.9 - CEREBRAL INFARCTION, UNSPECIFIED Qualifiers: Qualified Code(s): I63.9 - Cerebral infarction, unspecified Assessment/Plan Current Medications Generic Name Dose Route Start Last Admin Trade Name Freq PRN Reason Stop Dose Admin Acetaminophen 650 mg 11/30/16 15:36 12/03/16 08:20 Tylenol - PO 650 mg Q6H PRN Administration PAIN Albuterol/Ipratropium 1 amp 12/06/16 12:00 12/09/16 17:36 Duoneb - NEB 1 amp QIDR [facility] Administration Aspirin 81 mg 12/01/16 10:00 12/09/16 09:46 Ecotrin - PO 81 mg DAILY [facility] Administration Atorvastatin Calcium 10 mg 11/30/16 22:00 12/08/16 21:22 Lipitor - PO 10 mg HS [facility] Administration Carvedilol 12.5 mg 11/30/16 22:00 12/09/16 09:46 Coreg - PO 12.5 mg BID [facility] Administration Clopidogrel Bisulfate 75 mg 12/01/16 10:00 12/09/16 09:46 Plavix - PO 75 mg DAILY [facility] Administration Docusate Sodium 100 mg 12/01/16 10:00 12/09/16 09:46 Colace - PO 100 mg DAILY [facility] Administration Ferrous Sulfate 325 mg 11/30/16 22:00 12/09/16 09:46 Feosol - PO 325 mg BID [facility] Administration Finasteride 5 mg 12/01/16 10:00 12/09/16 09:46 Proscar - PO 5 mg DAILY [facility] Administration Furosemide 80 mg 12/08/16 14:00 12/09/16 13:45 Lasix Oral Solution - PO 80 mg BID@0600,1400 [facility] Administration Gabapentin 300 mg 11/30/16 22:00 12/09/16 09:46 Neurontin - PO 300 mg BID [facility] Administration Hydrocortisone 1 applic 12/01/16 10:00 12/09/16 09:46 Anusol 2.5% Hc Cream - TP 1 applic BID [facility] Administration Insulin Aspart 1 vial 12/01/16 16:30 12/09/16 16:42 Novolog Vial Sliding Scale - SQ Not Given ACHS [facility] Protocol Isosorbide Mononitrate 30 mg 12/01/16 10:00 12/09/16 09:46 Imdur - PO 30 mg DAILY [facility] Administration Levetiracetam 1,000 mg/ 1,250 mg 11/30/16 22:00 12/09/16 09:45 Levetiracetam 250 mg PO 1,250 mg BID [facility] Administration Lisinopril 20 mg 12/09/16 10:00 12/09/16 09:46 Prinivil PO 20 mg DAILY [facility] Administration Mirtazapine 15 mg 11/30/16 22:00 12/08/16 21:22 Remeron - PO 15 mg HS [facility] Administration Nifedipine 60 mg 12/01/16 10:00 12/09/16 09:47 Procardia Xl - PO 60 mg DAILY [facility] Administration Pantoprazole Sodium 40 mg 12/01/16 10:00 12/09/16 09:46 Protonix - PO 40 mg DAILY [facility] Administration Potassium Chloride 10 meq 12/01/16 10:00 12/09/16 09:45 K-Dur - PO 10 meq DAILY [facility] Administration Spironolactone 25 mg 12/01/16 10:00 12/09/16 09:46 Aldactone - PO 25 mg DAILY [facility] Administration Tamsulosin HCl 0.4 mg 12/01/16 08:30 12/09/16 09:45 Flomax - PO 0.4 mg DAILY@0830 [facility] Administration Impression 1. CKD 2. epilepsy 3. hx CVA 4. DM 5. resp failure requiring bipap 6. hyperlipidemia 7. hx anemia 8. hx a-fib 9. hypokalemia 10. CAD 11. acute CHF Plan - cont PO lasix - lisinopril dose increased - discussed with cardio - monitor lytes closely - volume status is improved - cont with bipap as needed - will follow Dr Jc
--- NOTE | 2016-12-09 19:30 | PN ---
Progress Note (short form) - Note Progress Note: PATIENT SEEN AND EXAMINED, LABS AND MEDICATIONS REVIEWED EVENTS DISCUSSED WITH STAFF. PATIENT TO GO HOME FOR HOME HOSPICE ON MONDAY WHEN BIPAP, OXYGEN, BED AND ALL EQUIPMENT IS READY. PATIENT TO RECEIVE CURRENT TREATMENT UNTIL THEN. PLAN: COMFORT CARE DNR/DNI 02 SUPPORT DC TELEMETRY
[2016-12-09] MEDS: MIRTAZAPINE 15 MG TABLET (FP) PO SCH (23:05)
[2016-12-09] MEDS: ATORVASTATIN CA 10 MG TABLET (FP) PO SCH (23:05)
[2016-12-10] MEDS: ALBUTEROL SO4 2.5/IPRATROPIUM 0.5 INH SOL 3 ML VIAL.NEB. NEB SCH ×4 (06:36→23:12)
[2016-12-10] MEDS: INSULIN SLIDING SCALE (NOVOLOG) 1 VIAL SQ SCH ×4 (07:02→22:23)
[2016-12-10] MEDS: FUROSEMIDE 40 MG/5 ML UNIT-DOSE CUP PO SCH ×2 (07:04→13:25)
[2016-12-10 09:03] LABS: CALCIUM 8.2 mg/dL (8.5-10.1); COCKROFT - GAULT 39.45; CREATININE 1.8 mg/dL (0.7-1.3)
[2016-12-10] MEDS ORDERED: levETIRAcetam 500 MG TABLET (FP) PO ONE ×2 (09:28→22:19)
[2016-12-10] MEDS ORDERED: levETIRAcetam 250 MG TABLET (FP) PO ONE ×2 (09:28→22:19)
[2016-12-10] MEDS: ACETAMINOPHEN 325 MG TABLET (FP) PO PRN (09:35)
[2016-12-10] MEDS: LEVETIRACETAM PO SCH ×2 (09:35→22:23)
[2016-12-10] MEDS: CARVEDILOL 12.5 MG TABLET (FP) PO SCH ×2 (09:36→22:23)
[2016-12-10] MEDS: FINASTERIDE 5 MG TABLET (FP) PO SCH (09:36)
[2016-12-10] MEDS: GABAPENTIN 300 MG CAPSULE (FP) PO SCH ×2 (09:36→22:23)
[2016-12-10] MEDS: PANTOPRAZOLE 40 MG TABLET (FP) PO SCH (09:36)
[2016-12-10] MEDS: POTASSIUM CHLORIDE TABS 10 MEQ TABLET.ER (FP) PO SCH (09:36)
[2016-12-10] MEDS: HYDROCORTISONE 2.5% TOPICAL CREAM 30 GM TUBE TP SCH ×2 (09:37→22:24)
[2016-12-10] MEDS: CLOPIDOGREL BISULFATE 75 MG TABLET (FP) PO SCH (09:37)
[2016-12-10] MEDS: LISINOPRIL 20 MG TABLET (FP) PO SCH (09:37)
[2016-12-10] MEDS: ASPIRIN COATED 81 MG TABLET.EC PO SCH (09:37)
[2016-12-10] MEDS: DOCUSATE SODIUM 100 MG CAPSULE (FP) PO SCH (09:37)
[2016-12-10] MEDS: SPIRONOLACTONE 25 MG TABLET (FP) PO SCH (09:37)
[2016-12-10] MEDS: FERROUS SO4 325 MG TABLET (FP) PO SCH ×2 (09:37→22:23)
[2016-12-10] MEDS: TAMSULOSIN HCL 0.4 MG CAP.ER.24H (FP) PO SCH (09:37)
[2016-12-10] MEDS: NIFEdipine E.R 60 MG TABLET (UD) PO SCH (09:37)
[2016-12-10] MEDS: ISOSORBIDE MONONITRATE 30 MG TAB.SR.24H (FP) PO SCH (09:37)
--- NOTE | 2016-12-10 09:40 | PN ---
Progress Note, Physician Chief Complaint: Coverage for [employer] No acute distress. - Current Medication List Current Medications: Active Medications Acetaminophen (Tylenol -) 650 mg PO Q6H PRN PRN Reason: PAIN Last Admin: 12/10/16 09:35 Dose: 650 mg Albuterol/Ipratropium (Duoneb -) 1 amp NEB QIDR [facility] Last Admin: 12/10/16 06:36 Dose: 1 amp Aspirin (Ecotrin -) 81 mg PO DAILY [facility] Last Admin: 12/10/16 09:37 Dose: 81 mg Atorvastatin Calcium (Lipitor -) 10 mg PO HS [facility] Last Admin: 12/09/16 23:05 Dose: 10 mg Carvedilol (Coreg -) 12.5 mg PO BID [facility] Last Admin: 12/10/16 09:36 Dose: 12.5 mg Clopidogrel Bisulfate (Plavix -) 75 mg PO DAILY [facility] Last Admin: 12/10/16 09:37 Dose: 75 mg Docusate Sodium (Colace -) 100 mg PO DAILY [facility] Last Admin: 12/10/16 09:37 Dose: 100 mg Ferrous Sulfate (Feosol -) 325 mg PO BID [facility] Last Admin: 12/10/16 09:37 Dose: 325 mg Finasteride (Proscar -) 5 mg PO DAILY [facility] Last Admin: 12/10/16 09:36 Dose: 5 mg Furosemide (Lasix Oral Solution -) 80 mg PO BID@0600,1400 [facility] Last Admin: 12/10/16 07:04 Dose: 80 mg Gabapentin (Neurontin -) 300 mg PO BID [facility] Last Admin: 12/10/16 09:36 Dose: 300 mg Hydrocortisone (Anusol 2.5% Hc Cream -) 1 applic TP BID [facility] Last Admin: 12/10/16 09:37 Dose: 1 applic Insulin Aspart (Novolog Vial Sliding Scale -) 1 vial SQ ACHS [facility] PRN Reason: Protocol Last Admin: 12/10/16 07:02 Dose: 2 units Isosorbide Mononitrate (Imdur -) 30 mg PO DAILY [facility] Last Admin: 12/10/16 09:37 Dose: 30 mg Levetiracetam 1,000 mg/ (Levetiracetam 250 mg) 1,250 mg PO BID [facility] Last Admin: 12/10/16 09:35 Dose: 1,250 mg Lisinopril (Prinivil) 20 mg PO DAILY [facility] Last Admin: 12/10/16 09:37 Dose: 20 mg Mirtazapine (Remeron -) 15 mg PO HS [facility] Last Admin: 12/09/16 23:05 Dose: 15 mg Nifedipine (Procardia Xl -) 60 mg PO DAILY [facility] Last Admin: 12/10/16 09:37 Dose: 60 mg Pantoprazole Sodium (Protonix -) 40 mg PO DAILY [facility] Last Admin: 12/10/16 09:36 Dose: 40 mg Potassium Chloride (K-Dur -) 10 meq PO DAILY [facility] Last Admin: 12/10/16 09:36 Dose: 10 meq Spironolactone (Aldactone -) 25 mg PO DAILY [facility] Last Admin: 12/10/16 09:37 Dose: 25 mg Tamsulosin HCl (Flomax -) 0.4 mg PO DAILY@0830 [facility] Last Admin: 12/10/16 09:37 Dose: 0.4 mg - Objective Vital Signs: Vital Signs Temperature 98 F 12/10/16 08:30 Pulse Rate 76 12/10/16 08:30 Respiratory Rate 20 12/10/16 08:30 Blood Pressure 167/66 12/10/16 08:30 O2 Sat by Pulse Oximetry (%) 100 12/09/16 21:00 Constitutional: Yes: No Distress Cardiovascular: Yes: Regular Rate and Rhythm Respiratory: Yes: Other (decreased breath sounds at bases) Gastrointestinal: Yes: Soft Edema: Yes Edema: LLE: 1+, RLE: 1+ Neurological: Yes: Alert Labs: CBC, BMP 12/06/16 06:00 12/10/16 05:40 INR, PTT INR 1.21 (0.82-1.09) H D 12/06/16 06:00 Assessment/Plan Chronic systolic CHF PAF CAD CKD H/O GI bleed. REC: Notes reviewed- DNR/DNI, with plan to move toward comfort care and hospice. Currently comfortable on PO Lasix. Continue current Rx: IV Lasix PRN.
--- NOTE | 2016-12-10 11:25 | PN ---
Progress Note (short form) - Note Progress Note: PULMONARY Breathing improving. No chest pain. Last Vital Signs Temp Pulse Resp BP Pulse Ox 98 F 76 20 167/66 99 12/10/16 08:30 12/10/16 08:30 12/10/16 08:30 12/10/16 08:30 12/10/16 08:00 Gen: NAD, mildly tachypneic Heart: RRR Lung: scattered rhonchi Abd: soft, nontender Ext: no edema CBC, BMP 12/06/16 06:00 12/10/16 05:40 Active Medications Acetaminophen (Tylenol -) 650 mg PO Q6H PRN PRN Reason: PAIN Last Admin: 12/10/16 09:35 Dose: 650 mg Albuterol/Ipratropium (Duoneb -) 1 amp NEB QIDR [facility] Last Admin: 12/10/16 06:36 Dose: 1 amp Aspirin (Ecotrin -) 81 mg PO DAILY [facility] Last Admin: 12/10/16 09:37 Dose: 81 mg Atorvastatin Calcium (Lipitor -) 10 mg PO HS [facility] Last Admin: 12/09/16 23:05 Dose: 10 mg Carvedilol (Coreg -) 12.5 mg PO BID [facility] Last Admin: 12/10/16 09:36 Dose: 12.5 mg Clopidogrel Bisulfate (Plavix -) 75 mg PO DAILY [facility] Last Admin: 12/10/16 09:37 Dose: 75 mg Docusate Sodium (Colace -) 100 mg PO DAILY [facility] Last Admin: 12/10/16 09:37 Dose: 100 mg Ferrous Sulfate (Feosol -) 325 mg PO BID [facility] Last Admin: 12/10/16 09:37 Dose: 325 mg Finasteride (Proscar -) 5 mg PO DAILY [facility] Last Admin: 12/10/16 09:36 Dose: 5 mg Furosemide (Lasix Oral Solution -) 80 mg PO BID@0600,1400 [facility] Last Admin: 12/10/16 07:04 Dose: 80 mg Gabapentin (Neurontin -) 300 mg PO BID [facility] Last Admin: 12/10/16 09:36 Dose: 300 mg Hydrocortisone (Anusol 2.5% Hc Cream -) 1 applic TP BID [facility] Last Admin: 12/10/16 09:37 Dose: 1 applic Insulin Aspart (Novolog Vial Sliding Scale -) 1 vial SQ ACHS [facility] PRN Reason: Protocol Last Admin: 12/10/16 07:02 Dose: 2 units Isosorbide Mononitrate (Imdur -) 30 mg PO DAILY [facility] Last Admin: 12/10/16 09:37 Dose: 30 mg Levetiracetam 1,000 mg/ (Levetiracetam 250 mg) 1,250 mg PO BID [facility] Last Admin: 12/10/16 09:35 Dose: 1,250 mg Lisinopril (Prinivil) 20 mg PO DAILY [facility] Last Admin: 12/10/16 09:37 Dose: 20 mg Mirtazapine (Remeron -) 15 mg PO HS [facility] Last Admin: 12/09/16 23:05 Dose: 15 mg Nifedipine (Procardia Xl -) 60 mg PO DAILY [facility] Last Admin: 12/10/16 09:37 Dose: 60 mg Pantoprazole Sodium (Protonix -) 40 mg PO DAILY [facility] Last Admin: 12/10/16 09:36 Dose: 40 mg Potassium Chloride (K-Dur -) 10 meq PO DAILY [facility] Last Admin: 12/10/16 09:36 Dose: 10 meq Spironolactone (Aldactone -) 25 mg PO DAILY [facility] Last Admin: 12/10/16 09:37 Dose: 25 mg Tamsulosin HCl (Flomax -) 0.4 mg PO DAILY@0830 [facility] Last Admin: 12/10/16 09:37 Dose: 0.4 mg A/P Acute on Chronic Systolic/Diastolic Heart Failure improving Acute on Chronic Hypoxic and Hypercapneic Respiratory Failure improving Pulmonary HTN Pleural Effusions from above Atrial Fibrillation Moderate Mitral Regurgitation CKD h/o CVA - lasix, aldactone - monitor urine output, creatinine - daily weights, I/Os - O2 to keep Spo2 >90% - BiPAP prn - rate control Problem List - Problems (1) Acute on chronic systolic and diastolic heart failure, NYHA class 1 Code(s): I50.43 - ACUTE ON CHRONIC COMBINED SYSTOLIC AND DIASTOLIC HRT FAIL (2) Mitral regurgitation Code(s): I34.0 - NONRHEUMATIC MITRAL (VALVE) INSUFFICIENCY (3) Pulmonary hypertension Code(s): I27.2 - OTHER SECONDARY PULMONARY HYPERTENSION (4) Pleural effusion Code(s): J90 - PLEURAL EFFUSION, NOT ELSEWHERE CLASSIFIED (5) Altered mental status Code(s): R41.82 - ALTERED MENTAL STATUS, UNSPECIFIED Qualifiers: Qualified Code(s): R41.0 - Disorientation, unspecified (6) Acute on chronic respiratory failure with hypoxia and hypercapnia Code(s): J96.21 - ACUTE AND CHRONIC RESPIRATORY FAILURE WITH HYPOXIA J96.22 - ACUTE AND CHRONIC RESPIRATORY FAILURE WITH HYPERCAPNIA
--- NOTE | 2016-12-10 11:53 | PN ---
Progress Note, Physician History of Present Illness: Pt seen and examined at bedside. He is awake and alert. He denies shortness of breath. He is still on oxygen. - Current Medication List Current Medications: Active Medications Acetaminophen (Tylenol -) 650 mg PO Q6H PRN PRN Reason: PAIN Last Admin: 12/10/16 09:35 Dose: 650 mg Albuterol/Ipratropium (Duoneb -) 1 amp NEB QIDR [facility] Last Admin: 12/10/16 06:36 Dose: 1 amp Aspirin (Ecotrin -) 81 mg PO DAILY [facility] Last Admin: 12/10/16 09:37 Dose: 81 mg Atorvastatin Calcium (Lipitor -) 10 mg PO HS [facility] Last Admin: 12/09/16 23:05 Dose: 10 mg Carvedilol (Coreg -) 12.5 mg PO BID [facility] Last Admin: 12/10/16 09:36 Dose: 12.5 mg Clopidogrel Bisulfate (Plavix -) 75 mg PO DAILY [facility] Last Admin: 12/10/16 09:37 Dose: 75 mg Docusate Sodium (Colace -) 100 mg PO DAILY [facility] Last Admin: 12/10/16 09:37 Dose: 100 mg Ferrous Sulfate (Feosol -) 325 mg PO BID [facility] Last Admin: 12/10/16 09:37 Dose: 325 mg Finasteride (Proscar -) 5 mg PO DAILY [facility] Last Admin: 12/10/16 09:36 Dose: 5 mg Furosemide (Lasix Oral Solution -) 80 mg PO BID@0600,1400 [facility] Last Admin: 12/10/16 07:04 Dose: 80 mg Gabapentin (Neurontin -) 300 mg PO BID [facility] Last Admin: 12/10/16 09:36 Dose: 300 mg Hydrocortisone (Anusol 2.5% Hc Cream -) 1 applic TP BID [facility] Last Admin: 12/10/16 09:37 Dose: 1 applic Insulin Aspart (Novolog Vial Sliding Scale -) 1 vial SQ ACHS [facility] PRN Reason: Protocol Last Admin: 12/10/16 07:02 Dose: 2 units Isosorbide Mononitrate (Imdur -) 30 mg PO DAILY [facility] Last Admin: 12/10/16 09:37 Dose: 30 mg Levetiracetam 1,000 mg/ (Levetiracetam 250 mg) 1,250 mg PO BID [facility] Last Admin: 12/10/16 09:35 Dose: 1,250 mg Lisinopril (Prinivil) 20 mg PO DAILY [facility] Last Admin: 12/10/16 09:37 Dose: 20 mg Mirtazapine (Remeron -) 15 mg PO HS [facility] Last Admin: 12/09/16 23:05 Dose: 15 mg Nifedipine (Procardia Xl -) 60 mg PO DAILY [facility] Last Admin: 12/10/16 09:37 Dose: 60 mg Pantoprazole Sodium (Protonix -) 40 mg PO DAILY [facility] Last Admin: 12/10/16 09:36 Dose: 40 mg Potassium Chloride (K-Dur -) 10 meq PO DAILY [facility] Last Admin: 12/10/16 09:36 Dose: 10 meq Spironolactone (Aldactone -) 25 mg PO DAILY [facility] Last Admin: 12/10/16 09:37 Dose: 25 mg Tamsulosin HCl (Flomax -) 0.4 mg PO DAILY@0830 [facility] Last Admin: 12/10/16 09:37 Dose: 0.4 mg - Objective Vital Signs: Vital Signs Temperature 98 F 12/10/16 08:30 Pulse Rate 76 12/10/16 08:30 Respiratory Rate 20 12/10/16 08:30 Blood Pressure 167/66 12/10/16 08:30 O2 Sat by Pulse Oximetry (%) 99 12/10/16 08:00 Constitutional: Yes: Calm Eyes: Yes: Conjunctiva Clear HENT: Yes: Atraumatic Cardiovascular: Yes: S1, S2 Respiratory: Yes: On Nasal O2 Gastrointestinal: Yes: Soft Genitourinary: Yes: Incontinence Musculoskeletal: Yes: Muscle Weakness Edema: No Neurological: Yes: Oriented, Pre-Existing Deficit Labs: CBC, BMP 12/06/16 06:00 12/10/16 05:40 INR, PTT INR 1.21 (0.82-1.09) H D 12/06/16 06:00 Problem List - Problems (1) Epilepsy Code(s): G40.909 - EPILEPSY, UNSP, NOT INTRACTABLE, WITHOUT STATUS EPILEPTICUS (2) Acute respiratory failure Code(s): J96.00 - ACUTE RESPIRATORY FAILURE, UNSP W HYPOXIA OR HYPERCAPNIA (3) CHF (congestive heart failure) Code(s): I50.9 - HEART FAILURE, UNSPECIFIED Qualifiers: Qualified Code(s): I50.43 - Acute on chronic combined systolic ( congestive) and diastolic (congestive) heart failure (4) CKD (chronic kidney disease) Code(s): N18.9 - CHRONIC KIDNEY DISEASE, UNSPECIFIED (5) COPD (chronic obstructive pulmonary disease) Code(s): J44.9 - CHRONIC OBSTRUCTIVE PULMONARY DISEASE, UNSPECIFIED (6) CVA (cerebral infarction) Code(s): I63.9 - CEREBRAL INFARCTION, UNSPECIFIED Qualifiers: Qualified Code(s): I63.9 - Cerebral infarction, unspecified Assessment/Plan Current Medications Generic Name Dose Route Start Last Admin Trade Name Freq PRN Reason Stop Dose Admin Acetaminophen 650 mg 11/30/16 15:36 12/10/16 09:35 Tylenol - PO 650 mg Q6H PRN Administration PAIN Albuterol/Ipratropium 1 amp 12/06/16 12:00 12/10/16 06:36 Duoneb - NEB 1 amp QIDR [facility] Administration Aspirin 81 mg 12/01/16 10:00 12/10/16 09:37 Ecotrin - PO 81 mg DAILY [facility] Administration Atorvastatin Calcium 10 mg 11/30/16 22:00 12/09/16 23:05 Lipitor - PO 10 mg HS [facility] Administration Carvedilol 12.5 mg 11/30/16 22:00 12/10/16 09:36 Coreg - PO 12.5 mg BID [facility] Administration Clopidogrel Bisulfate 75 mg 12/01/16 10:00 12/10/16 09:37 Plavix - PO 75 mg DAILY [facility] Administration Docusate Sodium 100 mg 12/01/16 10:00 12/10/16 09:37 Colace - PO 100 mg DAILY [facility] Administration Ferrous Sulfate 325 mg 11/30/16 22:00 12/10/16 09:37 Feosol - PO 325 mg BID [facility] Administration Finasteride 5 mg 12/01/16 10:00 12/10/16 09:36 Proscar - PO 5 mg DAILY [facility] Administration Furosemide 80 mg 12/08/16 14:00 12/10/16 07:04 Lasix Oral Solution - PO 80 mg BID@0600,1400 [facility] Administration Gabapentin 300 mg 11/30/16 22:00 12/10/16 09:36 Neurontin - PO 300 mg BID [facility] Administration Hydrocortisone 1 applic 12/01/16 10:00 12/10/16 09:37 Anusol 2.5% Hc Cream - TP 1 applic BID [facility] Administration Insulin Aspart 1 vial 12/01/16 16:30 12/10/16 07:02 Novolog Vial Sliding Scale - SQ 2 units ACHS [facility] Administration Protocol Isosorbide Mononitrate 30 mg 12/01/16 10:00 12/10/16 09:37 Imdur - PO 30 mg DAILY [facility] Administration Levetiracetam 1,000 mg/ 1,250 mg 11/30/16 22:00 12/10/16 09:35 Levetiracetam 250 mg PO 1,250 mg BID [facility] Administration Lisinopril 20 mg 12/09/16 10:00 12/10/16 09:37 Prinivil PO 20 mg DAILY [facility] Administration Mirtazapine 15 mg 11/30/16 22:00 12/09/16 23:05 Remeron - PO 15 mg HS [facility] Administration Nifedipine 60 mg 12/01/16 10:00 12/10/16 09:37 Procardia Xl - PO 60 mg DAILY [facility] Administration Pantoprazole Sodium 40 mg 12/01/16 10:00 12/10/16 09:36 Protonix - PO 40 mg DAILY [facility] Administration Potassium Chloride 10 meq 12/01/16 10:00 12/10/16 09:36 K-Dur - PO 10 meq DAILY [facility] Administration Spironolactone 25 mg 12/01/16 10:00 12/10/16 09:37 Aldactone - PO 25 mg DAILY [facility] Administration Tamsulosin HCl 0.4 mg 12/01/16 08:30 12/10/16 09:37 Flomax - PO 0.4 mg DAILY@0830 [facility] Administration Impression 1. CKD 2. epilepsy 3. hx CVA 4. DM 5. resp failure requiring bipap 6. hyperlipidemia 7. hx anemia 8. hx a-fib 9. hypokalemia 10. CAD 11. acute CHF Plan - cont with PO lasix - renal function is stable - cardiology follow up - volume status is improved - cont with bipap as needed - will follow PRN Dr Jc
[2016-12-10] MEDS ORDERED: PT OWN MED DRAWER 7, Y5N ONE (15:50)
--- NOTE | 2016-12-10 18:49 | PN ---
Progress Note (short form) - Note Progress Note: IN BED, SLEEP, COMFORTABLE NAD 02 SUPPORT =APPETITE + BM AWAIT DC PLANNING TO ARRANGE PROPER DISCHARGE WITH EQUIPMENT
[2016-12-10] MEDS: ATORVASTATIN CA 10 MG TABLET (FP) PO SCH (22:23)
[2016-12-10] MEDS: MIRTAZAPINE 15 MG TABLET (FP) PO SCH (22:23)
[2016-12-11] MEDS ORDERED: PT OWN MED DRAWER 7, Y5N ONE ×3 (06:13→13:55)
[2016-12-11] MEDS: ALBUTEROL SO4 2.5/IPRATROPIUM 0.5 INH SOL 3 ML VIAL.NEB. NEB SCH ×3 (06:14→17:32)
[2016-12-11] MEDS: FUROSEMIDE 40 MG/5 ML UNIT-DOSE CUP PO SCH ×2 (06:22→13:55)
[2016-12-11] MEDS: INSULIN SLIDING SCALE (NOVOLOG) 1 VIAL SQ SCH ×4 (06:22→20:59)
[2016-12-11] MEDS ORDERED: levETIRAcetam 500 MG TABLET (FP) PO ONE ×2 (08:32→20:47)
[2016-12-11] MEDS ORDERED: levETIRAcetam 250 MG TABLET (FP) PO ONE ×2 (08:32→20:47)
[2016-12-11] MEDS: SPIRONOLACTONE 25 MG TABLET (FP) PO SCH (09:20)
[2016-12-11] MEDS: CLOPIDOGREL BISULFATE 75 MG TABLET (FP) PO SCH (09:20)
[2016-12-11] MEDS: POTASSIUM CHLORIDE TABS 10 MEQ TABLET.ER (FP) PO SCH (09:20)
[2016-12-11] MEDS: GABAPENTIN 300 MG CAPSULE (FP) PO SCH ×2 (09:20→21:00)
[2016-12-11] MEDS: CARVEDILOL 12.5 MG TABLET (FP) PO SCH ×2 (09:20→21:00)
[2016-12-11] MEDS: PANTOPRAZOLE 40 MG TABLET (FP) PO SCH (09:20)
[2016-12-11] MEDS: ASPIRIN COATED 81 MG TABLET.EC PO SCH (09:20)
[2016-12-11] MEDS: FERROUS SO4 325 MG TABLET (FP) PO SCH ×2 (09:20→21:00)
[2016-12-11] MEDS: DOCUSATE SODIUM 100 MG CAPSULE (FP) PO SCH (09:20)
[2016-12-11] MEDS: LISINOPRIL 20 MG TABLET (FP) PO SCH (09:20)
[2016-12-11] MEDS: ISOSORBIDE MONONITRATE 30 MG TAB.SR.24H (FP) PO SCH (09:20)
[2016-12-11] MEDS: FINASTERIDE 5 MG TABLET (FP) PO SCH (09:20)
[2016-12-11] MEDS: NIFEdipine E.R 60 MG TABLET (UD) PO SCH (09:21)
[2016-12-11] MEDS: TAMSULOSIN HCL 0.4 MG CAP.ER.24H (FP) PO SCH (09:21)
[2016-12-11] MEDS: LEVETIRACETAM PO SCH ×2 (09:21→21:00)
--- NOTE | 2016-12-11 09:24 | PN ---
Progress Note, Physician Chief Complaint: comfortable, no distress Wants to go home - Current Medication List Current Medications: Active Medications Acetaminophen (Tylenol -) 650 mg PO Q6H PRN PRN Reason: PAIN Last Admin: 12/10/16 09:35 Dose: 650 mg Albuterol/Ipratropium (Duoneb -) 1 amp NEB QIDR [facility] Last Admin: 12/11/16 06:14 Dose: 1 amp Aspirin (Ecotrin -) 81 mg PO DAILY [facility] Last Admin: 12/10/16 09:37 Dose: 81 mg Atorvastatin Calcium (Lipitor -) 10 mg PO HS [facility] Last Admin: 12/10/16 22:23 Dose: 10 mg Carvedilol (Coreg -) 12.5 mg PO BID [facility] Last Admin: 12/10/16 22:23 Dose: 12.5 mg Clopidogrel Bisulfate (Plavix -) 75 mg PO DAILY [facility] Last Admin: 12/10/16 09:37 Dose: 75 mg Docusate Sodium (Colace -) 100 mg PO DAILY [facility] Last Admin: 12/10/16 09:37 Dose: 100 mg Ferrous Sulfate (Feosol -) 325 mg PO BID [facility] Last Admin: 12/10/16 22:23 Dose: 325 mg Finasteride (Proscar -) 5 mg PO DAILY [facility] Last Admin: 12/10/16 09:36 Dose: 5 mg Furosemide (Lasix Oral Solution -) 80 mg PO BID@0600,1400 [facility] Last Admin: 12/11/16 06:22 Dose: 80 mg Gabapentin (Neurontin -) 300 mg PO BID [facility] Last Admin: 12/10/16 22:23 Dose: 300 mg Hydrocortisone (Anusol 2.5% Hc Cream -) 1 applic TP BID [facility] Last Admin: 12/10/16 22:24 Dose: 1 applic Insulin Aspart (Novolog Vial Sliding Scale -) 1 vial SQ ACHS [facility] PRN Reason: Protocol Last Admin: 12/11/16 06:22 Dose: 2 units Isosorbide Mononitrate (Imdur -) 30 mg PO DAILY [facility] Last Admin: 12/10/16 09:37 Dose: 30 mg Levetiracetam 1,000 mg/ (Levetiracetam 250 mg) 1,250 mg PO BID [facility] Last Admin: 12/10/16 22:23 Dose: 1,250 mg Lisinopril (Prinivil) 20 mg PO DAILY [facility] Last Admin: 12/10/16 09:37 Dose: 20 mg Mirtazapine (Remeron -) 15 mg PO HS [facility] Last Admin: 12/10/16 22:23 Dose: 15 mg Nifedipine (Procardia Xl -) 60 mg PO DAILY [facility] Last Admin: 12/10/16 09:37 Dose: 60 mg Pantoprazole Sodium (Protonix -) 40 mg PO DAILY [facility] Last Admin: 12/10/16 09:36 Dose: 40 mg Potassium Chloride (K-Dur -) 10 meq PO DAILY [facility] Last Admin: 12/10/16 09:36 Dose: 10 meq Spironolactone (Aldactone -) 25 mg PO DAILY [facility] Last Admin: 12/10/16 09:37 Dose: 25 mg Tamsulosin HCl (Flomax -) 0.4 mg PO DAILY@0830 [facility] Last Admin: 12/10/16 09:37 Dose: 0.4 mg - Objective Vital Signs: Vital Signs Temperature 98.3 F 12/11/16 07:29 Pulse Rate 66 12/11/16 07:29 Respiratory Rate 19 12/11/16 07:33 Blood Pressure 129/65 12/11/16 07:29 O2 Sat by Pulse Oximetry (%) 100 12/11/16 06:00 Constitutional: Yes: Calm Cardiovascular: Yes: Pulse Irregular Respiratory: Yes: Other (slight decreased breath sounds at bases o/w clear, no wheezing) Gastrointestinal: Yes: Soft Edema: Yes Edema: LLE: 1+, RLE: 1+ Neurological: Yes: Alert, Oriented ...Motor Strength: WNL Labs: CBC, BMP 12/06/16 06:00 12/10/16 05:40 INR, PTT INR 1.21 (0.82-1.09) H D 12/06/16 06:00 Assessment/Plan Chronic systolic CHF PAF CAD CKD H/O GI bleed. REC: DNR/DNI, with plan to move toward comfort care and hospice. Remains comfortable on PO Lasix. Hemodynamically stable. Anthony Higgins
[2016-12-11] MEDS: HYDROCORTISONE 2.5% TOPICAL CREAM 30 GM TUBE TP SCH ×2 (09:25→21:00)
--- NOTE | 2016-12-11 13:49 | PN ---
Progress Note (short form) - Note Progress Note: PULMONARY Breathing improving. No chest pain. More alert, awake today. Last Vital Signs Temp Pulse Resp BP Pulse Ox 98.3 F 59 L 19 129/65 100 12/11/16 07:29 12/11/16 11:20 12/11/16 07:33 12/11/16 07:29 12/11/16 11:20 Gen: NAD at rest Heart: RRR Lung: decreased breath sounds at the bases Abd: soft, nontender Ext: no edema CBC, BMP 12/06/16 06:00 12/10/16 05:40 Active Medications Acetaminophen (Tylenol -) 650 mg PO Q6H PRN PRN Reason: PAIN Last Admin: 12/10/16 09:35 Dose: 650 mg Albuterol/Ipratropium (Duoneb -) 1 amp NEB QIDR [facility] Last Admin: 12/11/16 11:20 Dose: 1 amp Aspirin (Ecotrin -) 81 mg PO DAILY [facility] Last Admin: 12/11/16 09:20 Dose: 81 mg Atorvastatin Calcium (Lipitor -) 10 mg PO HS [facility] Last Admin: 12/10/16 22:23 Dose: 10 mg Carvedilol (Coreg -) 12.5 mg PO BID [facility] Last Admin: 12/11/16 09:20 Dose: 12.5 mg Clopidogrel Bisulfate (Plavix -) 75 mg PO DAILY [facility] Last Admin: 12/11/16 09:20 Dose: 75 mg Docusate Sodium (Colace -) 100 mg PO DAILY [facility] Last Admin: 12/11/16 09:20 Dose: 100 mg Ferrous Sulfate (Feosol -) 325 mg PO BID [facility] Last Admin: 12/11/16 09:20 Dose: 325 mg Finasteride (Proscar -) 5 mg PO DAILY [facility] Last Admin: 12/11/16 09:20 Dose: 5 mg Furosemide (Lasix Oral Solution -) 80 mg PO BID@0600,1400 [facility] Last Admin: 12/11/16 06:22 Dose: 80 mg Gabapentin (Neurontin -) 300 mg PO BID [facility] Last Admin: 12/11/16 09:20 Dose: 300 mg Hydrocortisone (Anusol 2.5% Hc Cream -) 1 applic TP BID [facility] Last Admin: 12/11/16 09:25 Dose: 1 applic Insulin Aspart (Novolog Vial Sliding Scale -) 1 vial SQ ACHS [facility] PRN Reason: Protocol Last Admin: 12/11/16 11:39 Dose: 2 units Isosorbide Mononitrate (Imdur -) 30 mg PO DAILY [facility] Last Admin: 12/11/16 09:20 Dose: 30 mg Levetiracetam 1,000 mg/ (Levetiracetam 250 mg) 1,250 mg PO BID [facility] Last Admin: 12/11/16 09:21 Dose: 1,250 mg Lisinopril (Prinivil) 20 mg PO DAILY [facility] Last Admin: 12/11/16 09:20 Dose: 20 mg Mirtazapine (Remeron -) 15 mg PO HS [facility] Last Admin: 12/10/16 22:23 Dose: 15 mg Nifedipine (Procardia Xl -) 60 mg PO DAILY [facility] Last Admin: 12/11/16 09:21 Dose: 60 mg Pantoprazole Sodium (Protonix -) 40 mg PO DAILY [facility] Last Admin: 12/11/16 09:20 Dose: 40 mg Potassium Chloride (K-Dur -) 10 meq PO DAILY [facility] Last Admin: 12/11/16 09:20 Dose: 10 meq Spironolactone (Aldactone -) 25 mg PO DAILY [facility] Last Admin: 12/11/16 09:20 Dose: 25 mg Tamsulosin HCl (Flomax -) 0.4 mg PO DAILY@0830 [facility] Last Admin: 12/11/16 09:21 Dose: 0.4 mg A/P Acute on Chronic Systolic/Diastolic Heart Failure improving Acute on Chronic Hypoxic and Hypercapneic Respiratory Failure improving Pulmonary HTN Pleural Effusions from above Atrial Fibrillation Moderate Mitral Regurgitation CKD h/o CVA - lasix, aldactone - monitor urine output, creatinine - daily weights, I/Os - O2 to keep Spo2 >90% - BiPAP prn - rate control Problem List - Problems (1) Acute on chronic systolic and diastolic heart failure, NYHA class 1 Code(s): I50.43 - ACUTE ON CHRONIC COMBINED SYSTOLIC AND DIASTOLIC HRT FAIL (2) Mitral regurgitation Code(s): I34.0 - NONRHEUMATIC MITRAL (VALVE) INSUFFICIENCY (3) Pulmonary hypertension Code(s): I27.2 - OTHER SECONDARY PULMONARY HYPERTENSION (4) Pleural effusion Code(s): J90 - PLEURAL EFFUSION, NOT ELSEWHERE CLASSIFIED (5) Altered mental status Code(s): R41.82 - ALTERED MENTAL STATUS, UNSPECIFIED Qualifiers: Qualified Code(s): R41.0 - Disorientation, unspecified (6) Acute on chronic respiratory failure with hypoxia and hypercapnia Code(s): J96.21 - ACUTE AND CHRONIC RESPIRATORY FAILURE WITH HYPOXIA J96.22 - ACUTE AND CHRONIC RESPIRATORY FAILURE WITH HYPERCAPNIA
[2016-12-11] MEDS: MIRTAZAPINE 15 MG TABLET (FP) PO SCH (21:00)
[2016-12-11] MEDS: ATORVASTATIN CA 10 MG TABLET (FP) PO SCH (21:00)
[2016-12-11] MEDS: ACETAMINOPHEN 325 MG TABLET (FP) PO PRN (23:09)
[2016-12-12] MEDS: INSULIN SLIDING SCALE (NOVOLOG) 1 VIAL SQ SCH (06:04)
[2016-12-12] MEDS: FUROSEMIDE 40 MG/5 ML UNIT-DOSE CUP PO SCH (06:04)
[2016-12-12] MEDS: ALBUTEROL SO4 2.5/IPRATROPIUM 0.5 INH SOL 3 ML VIAL.NEB. NEB SCH ×2 (06:46)
[2016-12-12 08:25] VITALS: BP 155/69; PULSE 85; TEMP 98.1
[2016-12-12] MEDS: TAMSULOSIN HCL 0.4 MG CAP.ER.24H (FP) PO SCH (08:31)
[2016-12-12] MEDS ORDERED: levETIRAcetam 250 MG TABLET (FP) PO ONE ×2 (08:50→08:53)
[2016-12-12] MEDS ORDERED: levETIRAcetam 500 MG TABLET (FP) PO ONE (08:50)
[2016-12-12] MEDS ORDERED: PT OWN MED DRAWER 7, Y5N ONE (08:51)
[2016-12-12] MEDS: LISINOPRIL 20 MG TABLET (FP) PO SCH (09:02)
[2016-12-12] MEDS: CARVEDILOL 12.5 MG TABLET (FP) PO SCH (09:02)
[2016-12-12] MEDS: FERROUS SO4 325 MG TABLET (FP) PO SCH (09:02)
[2016-12-12] MEDS: PANTOPRAZOLE 40 MG TABLET (FP) PO SCH (09:02)
[2016-12-12] MEDS: LEVETIRACETAM PO SCH (09:02)
[2016-12-12] MEDS: GABAPENTIN 300 MG CAPSULE (FP) PO SCH (09:02)
[2016-12-12] MEDS: ASPIRIN COATED 81 MG TABLET.EC PO SCH (09:02)
[2016-12-12] MEDS: CLOPIDOGREL BISULFATE 75 MG TABLET (FP) PO SCH (09:03)
[2016-12-12] MEDS: POTASSIUM CHLORIDE TABS 10 MEQ TABLET.ER (FP) PO SCH (09:03)
[2016-12-12] MEDS: NIFEdipine E.R 60 MG TABLET (UD) PO SCH (09:04)
[2016-12-12] MEDS: ISOSORBIDE MONONITRATE 30 MG TAB.SR.24H (FP) PO SCH (09:04)
[2016-12-12] MEDS: FINASTERIDE 5 MG TABLET (FP) PO SCH (09:04)
[2016-12-12] MEDS: SPIRONOLACTONE 25 MG TABLET (FP) PO SCH (09:04)
[2016-12-12] MEDS: HYDROCORTISONE 2.5% TOPICAL CREAM 30 GM TUBE TP SCH (09:05)
[2016-12-12] MEDS: DOCUSATE SODIUM 100 MG CAPSULE (FP) PO SCH (09:05)
== END 2016-12-12 09:09 | disposition home health service (06) | DRG 291 ==
LOC: JER 12:47 → JERBED 15:12 → J4W 15:45
PROVIDERS: ADMIT Family Medicine; ATTEND Family Medicine
PROC: 5A09457 Assistance with Respiratory Ventilation, 24-96 Consecutive Hours, Continuous Positive Airway Pressure (ICD-10-PCS; principal; 2016-11-30)
PROC: 3E0F7GC Introduction of Other Therapeutic Substance into Respiratory Tract, Via Natural or Artificial Opening (ICD-10-PCS; 2016-11-30)
DX: I13.0 Hypertensive heart and chronic kidney disease with heart failure and stage 1 through stage 4 chronic kidney disease, or unspecified chronic kidney disease (principal); J81.0 Acute pulmonary edema; I50.43 Acute on chronic combined systolic (congestive) and diastolic (congestive) heart failure; J96.22 Acute and chronic respiratory failure with hypercapnia; J96.21 Acute and chronic respiratory failure with hypoxia; I69.351 Hemiplegia and hemiparesis following cerebral infarction affecting right dominant side; D64.9 Anemia, unspecified; E78.00 Pure hypercholesterolemia, unspecified; Z95.0 Presence of cardiac pacemaker; E87.70 Fluid overload, unspecified; F41.9 Anxiety disorder, unspecified; F32.9 Major depressive disorder, single episode, unspecified; K21.9 Gastro-esophageal reflux disease without esophagitis; E11.65 Type 2 diabetes mellitus with hyperglycemia; Z79.4 Long term (current) use of insulin; E11.22 Type 2 diabetes mellitus with diabetic chronic kidney disease; N18.9 Chronic kidney disease, unspecified; I27.2 Other secondary pulmonary hypertension; I34.0 Nonrheumatic mitral (valve) insufficiency; R07.89 Other chest pain; Z22.322 Carrier or suspected carrier of Methicillin resistant Staphylococcus aureus; Z95.5 Presence of coronary angioplasty implant and graft; E87.6 Hypokalemia; Z99.81 Dependence on supplemental oxygen; E11.42 Type 2 diabetes mellitus with diabetic polyneuropathy; R26.81 Unsteadiness on feet; Z74.01 Bed confinement status; Z66 Do not resuscitate
CPT/HCPCS: 36415; 36600; 70450-TC; 71010-TC; 78472-TC; 80048; 80053; 82550; 82728; 82803; 83036; 83540; 83550; 83735; 83880; 84484; 85025; 85027; 85610; 93005; 93010; 94640; 94660; 99285-25; A9538